=== PATIENT | female | born 1955 | race Caucasian/White ===

== ENCOUNTER 2020-01-16 16:13 | Outpatient (REF) | payer MEDICARE, MEDICAID, SELFPAY | END 2020-01-16 16:14 | disposition home or self-care (01) | LOC: HO.LAB 16:13 | PROVIDERS: Visit Provider Nurse Practitioner Family | DX: Z20.828 Contact with and (suspected) exposure to other viral communicable diseases (principal); R30.0 Dysuria | CPT/HCPCS: 87086; 87088; 87186; U0003 ==

== ENCOUNTER 2020-02-01 13:55 | Outpatient (REF) | payer MEDICARE, MEDICAID, SELFPAY ==
--- NOTE | 2020-02-01 14:17 | XR_ITS ---
EXAMINATION: XR BILATERAL HIPS WITH AP PELVIS CLINICAL INFORMATION: Hip pain COMPARISON: Radiograph 06/30/2013. CT 12/11/2015. TECHNIQUE: AP and frog-leg lateral views of each hip and an AP view of the pelvis. FINDINGS: No fracture or dislocation. The femoral heads are well-seated within their acetabula. The joint spaces are maintained with mild subchondral sclerosis present. The pelvic rim is intact. The sacroiliac joints and pubic symphysis are intact. The bowel gas pattern is unremarkable. XR/XR hips BEATRIZ min 3V IMPRESSION: Mild degenerative changes of the hips.
== END 2020-02-01 13:56 | disposition home or self-care (01) ==
LOC: HO.XRAY 13:55
PROVIDERS: PCP Internal Medicine; Visit Provider Psychiatry & Neurology Neurology
DX: M25.559 Pain in unspecified hip (principal)
CPT/HCPCS: 73522

== ENCOUNTER 2020-02-14 06:52 | Outpatient (REF) | payer MEDICARE, MEDICAID, SELFPAY | END 2020-02-14 06:53 | disposition home or self-care (01) | LOC: HO.LAB 06:52 | PROVIDERS: Visit Provider Internal Medicine | DX: Z20.828 Contact with and (suspected) exposure to other viral communicable diseases (principal) | CPT/HCPCS: C9803; U0003 ==

== ENCOUNTER 2020-03-21 13:01 | Outpatient (REF) | payer MEDICARE, MEDICAID, SELFPAY ==
--- NOTE | 2020-03-21 13:05 | MM_ITS ---
EXAMINATION: MM SCREENING DIGITAL BREAST TOMOSYNTHESIS, BILATERAL CLINICAL INFORMATION: Screening. Asymptomatic. The lifetime risk of breast cancer based on the Tyrer-Cuzick Model is 8%. COMPARISON: Mammography: 02/27/2019, 02/23/2018, 02/13/2017 TECHNIQUE: Digital breast tomosynthesis is performed in both the craniocaudal and mediolateral oblique views along with computer-aided detection (CAD). Synthesized 2D images are generated from the tomosynthesis. FINDINGS: There are scattered areas of fibroglandular density (ACR BI-RADS breast composition Category b). There are no significant masses, abnormal calcifications, or other abnormalities. Parenchymal pattern is similar to prior studies. There is some old scarring left axilla right MLO view similar to prior studies. MM/MM tomosynthesis screening BI IMPRESSION: No mammographic evidence of malignancy. ASSESSMENT: BI-RADS 2: Benign RECOMMENDATION: Routine annual mammography screening. This patient's information was entered into a reminder system with a target due date for their next mammogram.
== END 2020-03-21 13:02 | disposition home or self-care (01) ==
LOC: HO.MAMMO 13:01
PROVIDERS: PCP Internal Medicine; Visit Provider Internal Medicine
DX: Z12.31 Encounter for screening mammogram for malignant neoplasm of breast (principal)
CPT/HCPCS: 77063; 77067; Q3014

== ENCOUNTER → 2020-03-26 19:20 | Outpatient (REF) | payer MEDICARE, MEDICAID, SELFPAY | LOC: HO.SL 19:20 | PROVIDERS: PCP Internal Medicine; Visit Provider Internal Medicine Cardiovascular Disease | DX: Z13.89 Encounter for screening for other disorder (principal) ==

== ENCOUNTER → 2020-04-24 11:07 | Outpatient (REF) | payer MEDICARE, MEDICAID, SELFPAY | LOC: HO.SL 11:07 | PROVIDERS: Visit Provider Internal Medicine Cardiovascular Disease | DX: G47.30 Sleep apnea, unspecified (principal) | CPT/HCPCS: 95806 ==

== ENCOUNTER → 2020-09-27 13:24 | Outpatient (BNVA) | payer MEDICARE, MEDICAID, SELFPAY | PROVIDERS: PCP Internal Medicine; Visit Provider Nurse Practitioner Family | DX: M54.16 Radiculopathy, lumbar region (principal); M53.3 Sacrococcygeal disorders, not elsewhere classified; M79.604 Pain in right leg; M79.605 Pain in left leg; Z79.899 Other long term (current) drug therapy | CPT/HCPCS: 99212 ==

== ENCOUNTER → 2020-10-11 15:24 | Outpatient (BNVA) | payer MEDICARE, MEDICAID, SELFPAY | PROVIDERS: PCP Internal Medicine; Visit Provider Internal Medicine Pulmonary Disease | DX: G47.33 Obstructive sleep apnea (adult) (pediatric) (principal) | CPT/HCPCS: 99202 ==

== ENCOUNTER → 2020-10-31 10:36 | Outpatient (BNVA) | payer MEDICARE, MEDICAID, SELFPAY | PROVIDERS: PCP Internal Medicine; Visit Provider Surgery Vascular Surgery | DX: I73.9 Peripheral vascular disease, unspecified (principal); I10 Essential (primary) hypertension; E78.5 Hyperlipidemia, unspecified | CPT/HCPCS: 99202 ==

== ENCOUNTER 2020-11-21 13:42 | Outpatient (REF) | payer MEDICARE, MEDICAID, SELFPAY | END 2020-11-21 13:43 | disposition home or self-care (01) | LOC: HO.US 13:42 | PROVIDERS: Visit Provider Surgery Vascular Surgery | DX: Z13.89 Encounter for screening for other disorder (principal) ==

== ENCOUNTER 2020-11-26 06:26 | Outpatient (REF) | payer MEDICARE, MEDICAID, SELFPAY ==
--- NOTE | ~2020-11-26 | FL_ITS ---
EXAMINATION: XR FLUOROSCOPY WITH IMAGES CLINICAL INFORMATION: M54.16 - Radiculopathy, lumbar region COMPARISON: Fluoroscopic spot views lumbar spine 04/12/2018 TECHNIQUE: Fluoroscopy performed by Dr. Sergio Child. Fluoroscopy time: 0.2 minutes DAP: 2.60 Gycm2 Images: 1 FINDINGS: There is a spinal needle overlying the outer left L4 neural foramen. There is contrast in the nerve sheath. There is transforaminal epidural extension. No vascular communication demonstrated. There are degenerative changes lumbar spine with vertebral body spurring. FL/FL guidance in treatment room IMPRESSION: Fluoroscopy for pain management procedure.
== END 2020-11-26 06:27 | disposition home or self-care (01) ==
LOC: HO.RADIR 06:26
PROVIDERS: Visit Provider Anesthesiology
DX: M54.16 Radiculopathy, lumbar region (principal); M53.3 Sacrococcygeal disorders, not elsewhere classified
CPT/HCPCS: 64483; J3300; Q9967

== ENCOUNTER 2020-11-28 15:01 | Outpatient (REF) | payer MEDICARE, MEDICAID, SELFPAY ==
--- NOTE | ~2020-11-28 | US_ITS ---
EXAMINATION: US NONINVASIVE ASSESSMENT OF THE ARTERIES OF BOTH LOWER EXTREMITIES CLINICAL INFORMATION: Peripheral vascular disease. COMPARISON: None. TECHNIQUE: Segmental ankle pulse volume recording, pressure measurement at the ankle and ankle brachial indices were obtained of the lower extremity arterial system bilaterally. In addition, bilateral lower extremity duplex ultrasound was performed with velocity measurements and waveform analysis in the common femoral arteries, profunda femoris arteries, proximal mid and distal superficial femoral arteries, popliteal arteries and tibial vessels. This study was performed at rest only. FINDINGS: a) AT REST: 1. The ankle-brachial indices are: Right 1.09 and left 1.07. >0.97-1.25 = normal - no significant arterial disease. 0.75-0.96 = mild peripheral arterial disease. 0.5-0.74 = moderate peripheral arterial disease. <0.50 = severe peripheral arterial disease. 2. Segmental pressure at ankle: Right PT 159, right DP 132, left PT 156, left DP 150. 3. PVR waveform at ankle: Normal bilaterally. 4. Duplex exam. Velocities in cm/sec and phasicity as well as the presence of plaque are reported below. RIGHT LEG: Minimal plaque was present and multiphasic flow seen throughout. Common Femoral: 206 Profunda Femoris: 117 Proximal SFA: 170 Mid SFA: 178 Distal SFA: 153 Popliteal: 102 Tibial: 128 LEFT LEG: Minimal plaque was present and multiphasic flow seen throughout Common Femoral: 171 Profunda Femoris: 83 Proximal SFA: 160 Mid SFA: 122 Distal SFA: 120 Popliteal: 72 Tibial: 98 US/US arterial duplex LE BI IMPRESSION: Normal ABIs with multiphasic flow throughout. No evidence of hemodynamically significant peripheral vascular disease.
== END 2020-11-28 15:02 | disposition home or self-care (01) ==
LOC: HO.US 15:01
PROVIDERS: Visit Provider Surgery Vascular Surgery
DX: I70.213 Atherosclerosis of native arteries of extremities with intermittent claudication, bilateral legs (principal)
CPT/HCPCS: 93925

== ENCOUNTER → 2020-12-04 10:36 | Outpatient (BNVA) | payer MEDICARE, MEDICAID, SELFPAY | PROVIDERS: PCP Internal Medicine; Visit Provider Anesthesiology | DX: M54.16 Radiculopathy, lumbar region (principal); M53.3 Sacrococcygeal disorders, not elsewhere classified; M79.604 Pain in right leg; M79.605 Pain in left leg | CPT/HCPCS: Q3014 ==

== ENCOUNTER → 2020-12-05 09:36 | Outpatient (BNVA) | payer MEDICARE, MEDICAID, SELFPAY | PROVIDERS: PCP Internal Medicine; Visit Provider Surgery Vascular Surgery | DX: M19.041 Primary osteoarthritis, right hand (principal); M19.042 Primary osteoarthritis, left hand; M54.16 Radiculopathy, lumbar region; I73.9 Peripheral vascular disease, unspecified | CPT/HCPCS: 99212 ==

== ENCOUNTER → 2020-12-20 15:22 | Outpatient (BNVA) | payer MEDICARE, MEDICAID, SELFPAY | PROVIDERS: PCP Internal Medicine; Visit Provider Internal Medicine Pulmonary Disease | DX: G47.33 Obstructive sleep apnea (adult) (pediatric) (principal) | CPT/HCPCS: 99212 ==

== ENCOUNTER → 2021-01-01 13:18 | Outpatient (BNVA) | payer MEDICARE, SELFPAY | PROVIDERS: PCP Internal Medicine; Visit Provider Anesthesiology | DX: M54.16 Radiculopathy, lumbar region (principal); M53.3 Sacrococcygeal disorders, not elsewhere classified; M79.604 Pain in right leg; M79.605 Pain in left leg | CPT/HCPCS: 99212 ==

== ENCOUNTER 2021-01-14 13:19 | Outpatient (REF) | payer MEDICARE, SELFPAY ==
--- NOTE | ~2021-01-14 | MR_ITS ---
EXAMINATION: MR LUMBAR SPINE WITHOUT CONTRAST CLINICAL INFORMATION: Radiculopathy, lumbar region. COMPARISON: 09/16/2016 MRI TECHNIQUE: MRI of the lumbar spine was obtained using routine sequences without contrast. FINDINGS: Coronal Alignment: Mild mid lumbar levocurvature, stable in appearance. Sagittal Alignment: There is trace grade 1 degenerative spondylolisthesis at L5-S1, stable in appearance. There is 2 mm of retrolisthesis at L2-L3, stable in appearance. Lordotic curvature is maintained. Lumbosacral Junction: Normal. Vertebral Bodies: Normal height. Disc Spaces and Endplates: Moderate disc space height loss, slightly progressed from previous exam at L5-S1 with disc desiccation and Schmorl's nodes, similar in appearance, with some progression of anterolateral spondylosis. Mild disc space height loss at L2-L3, slightly progressed. Multilevel disc desiccation throughout the thoracolumbar spine, similar to the previous exam. Spinal Canal: No abnormal developmental findings. Bone Marrow: Mild type II and minimal type I marrow signal changes along the endplates at L5-S1 with improvement and type I marrow signal changes at this level since the previous exam. Conus Medullaris: Terminates at L1-L2. Morphology and signal is normal. Intradural Nerve Roots: Within normal limits. L5-S1: Concentric disc bulging and a tiny central annular fissure again noted, with progression of lateral foraminal components of disc bulging since previous exam bilaterally. Moderate left-sided and [id number]-[id number] right-sided facet arthropathy, similar to previous study. No significant spinal canal stenosis. There is severe left-sided and lebq-sk-ulpefepd right-sided neural foraminal stenosis, progressed from previous exam, with left L5 nerve root impingement. There is also right L5 nerve root impingement to a lesser degree which is also a new finding. L4-L5: Disc bulging is again noted, with a right-sided extraforaminal/foraminal disc protrusion also again noted, slightly more prominent on current study which abuts the exiting right L4 nerve root without nerve root compression or displacement. There is severe right-sided and moderate left-sided facet arthropathy with ligamentum flavum thickening, similar to the previous exam without significant spinal canal stenosis. Hwlv-xd-ijytvyvp bilateral neural foraminal narrowing has progressed. L3-L4: Minor annular bulging noted, slightly more apparent on current study with mild flattening of the dural sac and moderate bilateral facet arthrosis with ligamentum flavum thickening, similar to the previous exam without significant spinal canal or neural foraminal stenosis. L2-L3: Mild disc bulging and mild retrolisthesis with mild flattening of the dural sac is stable with mild facet arthropathy without significant canal or neural foraminal stenosis. L1-L2: No disc bulge or herniation and no significant facet arthrosis, canal or neural foraminal stenosis. Paraspinal/Retroperitoneal: The paravertebral soft tissues are unremarkable. MR/MR lumbar spine wo con IMPRESSION: 1. Trace grade 1 degenerative spondylolisthesis at L5-S1 and mild retrolisthesis at L2-L3, largely similar to the previous exam with multilevel DDD and spondylosis, with progression of disc degenerative change at L5-S1 with progression of disc bulging at L5-S1. Disc bulging also noted at the remaining levels slightly more prominent at L3-L4 with a slightly more prominent right foraminal disc herniation at L4-L5. 2. Multilevel bilateral facet arthropathy, similar to the previous exam. 3. No significant central spinal canal stenosis or lateral recess stenosis. There is multilevel bilateral neural foraminal stenosis, most apparent on the left at L5-S1 with bilateral L5 nerve root impingement, left more than right, progressed from previous study.
== END 2021-01-14 13:20 | disposition home or self-care (01) ==
LOC: HO.MRI 13:19
PROVIDERS: Visit Provider Anesthesiology
DX: M54.16 Radiculopathy, lumbar region (principal)
CPT/HCPCS: 72148

== ENCOUNTER 2021-03-19 17:13 | Outpatient (REF) | payer MEDICARE, SELFPAY ==
[2021-03-19 18:02] LABS: Influenza A PCR NEGATIVE (Negative); Influenza B PCR NEGATIVE (Negative); Resp Syncy Virus RNA Qual PCR NEGATIVE (Negative); SARS COV2 PCR INHOUSE POSITIVE (Negative)
== END 2021-03-19 17:14 | disposition home or self-care (01) ==
LOC: HO.LNP 17:13
PROVIDERS: Visit Provider Physician Assistant
DX: Z20.822 Contact with and (suspected) exposure to COVID-19 (principal); R05.8 Other specified cough
CPT/HCPCS: 0241U

== ENCOUNTER 2021-04-10 09:42 | Outpatient (REF) | payer MEDICARE, SELFPAY | END 2021-04-10 09:43 | disposition home or self-care (01) | LOC: HO.LAB 09:42 | PROVIDERS: PCP Internal Medicine | DX: N39.0 Urinary tract infection, site not specified (principal) | CPT/HCPCS: 51798; 87086; 87088; 87186; 99212 ==

== ENCOUNTER 2021-04-18 12:56 | Outpatient (REF) | payer MEDICARE, SELFPAY ==
--- NOTE | ~2021-04-18 | MM_ITS ---
EXAMINATION: MM SCREENING DIGITAL BREAST TOMOSYNTHESIS, BILATERAL CLINICAL INFORMATION: Screening. Asymptomatic. The lifetime risk of breast cancer based on the Tyrer-Cuzick Model is 5%. COMPARISON: Mammography: 03/21/2020, 02/27/2019, 02/23/2018 TECHNIQUE: Digital breast tomosynthesis is performed in both the craniocaudal and mediolateral oblique views along with computer-aided detection (CAD). Synthesized 2D images are generated from the tomosynthesis. FINDINGS: There are scattered areas of fibroglandular density (ACR BI-RADS breast composition Category b). There are no significant masses, abnormal calcifications, or other abnormalities. Parenchymal pattern is similar to prior studies. There is no developing density or architectural abnormality. The axilla and skin contours are unremarkable. No significant changes. MM/MM tomosynthesis screening BI IMPRESSION: No mammographic evidence of malignancy. ASSESSMENT: BI-RADS 1: Negative RECOMMENDATION: Routine annual mammography screening. This patient's information was entered into a reminder system with a target due date for their next mammogram.
== END 2021-04-18 12:57 | disposition home or self-care (01) ==
LOC: HO.MAMMO 12:56
PROVIDERS: PCP Internal Medicine; Visit Provider Internal Medicine
DX: Z12.31 Encounter for screening mammogram for malignant neoplasm of breast (principal)
CPT/HCPCS: 77063; 77067

== ENCOUNTER → 2021-04-23 12:59 | Outpatient (BNVA) | payer MEDICARE, SELFPAY | PROVIDERS: PCP Internal Medicine; Visit Provider Anesthesiology | DX: M47.816 Spondylosis without myelopathy or radiculopathy, lumbar region (principal); M51.36 Other intervertebral disc degeneration, lumbar region | CPT/HCPCS: 99212 ==

== ENCOUNTER → 2021-04-29 12:34 | Outpatient (BNVA) | payer MEDICARE, SELFPAY | PROVIDERS: PCP Internal Medicine; Visit Provider Obstetrics & Gynecology | DX: Z13.89 Encounter for screening for other disorder (principal) ==

== ENCOUNTER 2021-05-07 08:41 | Outpatient (REF) | payer MEDICARE, SELFPAY ==
--- NOTE | ~2021-05-07 | US_ITS ---
EXAMINATION: US ABDOMEN COMPLETE CLINICAL INFORMATION: Epigastric pain. COMPARISON: CT abdomen pelvis 12/07/2013. TECHNIQUE: Real-time imaging of the abdominal viscera. FINDINGS: PANCREAS: Normal. ABDOMINAL AORTA: The proximal, mid, and distal segments are normal in caliber. INFERIOR VENA CAVA: Visualized portions are normal. LIVER: Liver echotexture is slightly increased. The liver is normal in size. The liver contour is normal. No focal hepatic lesion. There is no intrahepatic biliary duct dilatation seen. GALLBLADDER: Not well visualized. No gallstones are seen. COMMON BILE DUCT: Normal in caliber measuring 0.5 cm in diameter. RIGHT KIDNEY: There is a 1 cm cyst in the upper pole. No hydronephrosis or renal calculi. The kidney measures 10.3 cm in maximum dimension. LEFT KIDNEY: There is a 1 x 0.6 cm cyst in the upper pole. No hydronephrosis or renal calculi. The kidney measures 11.5 cm in maximum dimension. SPLEEN: Normal. The spleen measures 11.6 cm in maximum dimension. FREE FLUID: None. US/US abdomen complete IMPRESSION: Slightly echogenic liver probably representing fatty infiltration. Limited visualization of the gallbladder. No gallstone seen. Small bilateral renal cysts.
== END 2021-05-07 08:42 | disposition home or self-care (01) ==
LOC: HO.US 08:41
PROVIDERS: PCP Internal Medicine; Visit Provider Internal Medicine Gastroenterology
DX: R10.13 Epigastric pain (principal)
CPT/HCPCS: 76700

== ENCOUNTER 2021-05-13 06:05 | Outpatient (REF) | payer MEDICARE, SELFPAY ==
--- NOTE | ~2021-05-13 | FL_ITS ---
EXAMINATION: XR FLUOROSCOPY WITH IMAGES CLINICAL INFORMATION: M47.816 - Spondylosis without myelopathy or radiculopathy COMPARISON: MR lumbar spine 01/14/2021 TECHNIQUE: Fluoroscopy performed by Dr. Sergio Child. Fluoroscopy time: 0.4 minutes DAP: 3.28 Gycm2 Images: 4 FINDINGS: There are spinal needles overlying the outer left L3, L4, and L5 neural foramen. There is contrast seen in the respective nerve sheaths. Some early transforaminal epidural extension is suggested. No visible vascular communication. FL/FL guidance in treatment room IMPRESSION: Fluoroscopy for pain management procedures.
== END 2021-05-13 06:06 | disposition home or self-care (01) ==
LOC: HO.RADIR 06:05
PROVIDERS: Visit Provider Anesthesiology
DX: M47.816 Spondylosis without myelopathy or radiculopathy, lumbar region (principal); M51.36 Other intervertebral disc degeneration, lumbar region
CPT/HCPCS: 64493; 64494; 64495; Q9967

== ENCOUNTER 2021-05-20 13:28 | Outpatient (REF) | payer MEDICARE, SELFPAY ==
--- NOTE | ~2021-05-20 | MM_ITS ---
EXAMINATION: BONE DENSITOMETRY CLINICAL INDICATION: Menopause. COMPARISON: Previous BD dated 07/02/2017 and baseline BD dated 06/03/2012. TECHNIQUE: Using a [employer] DXA System (software version: 13.1) manufactured by [employer], dual-energy x-ray absorptiometry was performed of the lumbar spine and left hip. The images are of good technical quality. Summary results are attached. FINDINGS: AP SPINE L1-L2 (excluding L3 and L4): The data of L1-L4 has been changed to exclude the L3 and L4 vertebral bodies, because degenerative changes at these levels may cause overestimation of lumbar spine density. Current: BMD 1.000 g/cm2, Z-score 0.1, T-score -1.4, osteopenia, 7.7% decrease from previous, 4.9% decrease from baseline (<5% change is not significant). Prior: BMD 1.083 g/cm2. Baseline: BMD 1.052 g/cm2. LEFT FEMUR, NECK: Current: BMD 0.840 g/cm2, Z-score 0.0, T-score -1.4, osteopenia. Prior: BMD 0.831 g/cm2. Baseline: BMD 0.842 g/cm2. LEFT FEMUR, TOTAL: Current: BMD 0.879 g/cm2, Z-score 0.1, T-score -1.0, normal, 1.9% decrease from previous, 5.3% decrease from baseline (<5% change is not significant). Prior: BMD 0.896 g/cm2. Baseline: BMD 0.928 g/cm2. IDENTIFIED RISK FACTORS: Early menopause, hysterectomy, secondary osteoporosis. HISTORY OF FRACTURE: None listed. MEDICATIONS: Calcium, vitamin D. MM/XR DEXA axial skeleton IMPRESSION: 1. DIAGNOSIS: Osteopenia based on the lowest T-score value of -1.4 in the lumbar spine and femur neck applying World Health Organization criteria. 2. 10-YEAR FRACTURE RISK PREDICTION, FRAX: Major osteoporotic fracture (clinical spine, forearm, hip or shoulder) 5.2%. Hip fracture 0.6%. 3. Treatment Recommendations: NOF guidelines recommend consideration for treatment in postmenopausal women and men age 50 and older presenting with the following: -A hip or vertebral (clinical or morphometric) fracture. -T-score less than or equal to -2.5 at the femoral neck or spine after appropriate evaluation to exclude secondary causes. -Low bone mass at the hip or spine and a 10-year fracture probability by FRAX of greater than or equal to 3% for hip fracture or greater than or equal to 20% for major osteoporotic fracture based on the [place] adapted WHO algorithm. 4. Other Recommendations: All treatment decisions require clinical judgment and consideration of individual patient factors, including patient preferences, comorbidities, previous drug use, risk factors not captured in the FRAX model (e.g. frailty, falls, vitamin D deficiency, increased bone turnover, interval significant decline in bone density) and possible under or overestimation of fracture risk by FRAX. Additional medical evaluation for secondary cause of low bone mineral density may be appropriate. FUTURE SCAN RECOMMENDATION: People with diagnosed cases of osteoporosis or at high risk for fracture should have regular bone mineral density tests. For patients eligible for Medicare, routine testing is allowed once every 2 years. The testing frequency can be increased to one year for patients who have rapidly progressing disease, those who are receiving or discontinuing medical therapy to restore bone mass, or have additional risk factors.
== END 2021-05-20 13:29 | disposition home or self-care (01) ==
LOC: HO.MAMMO 13:28
PROVIDERS: PCP Internal Medicine; Visit Provider Obstetrics & Gynecology
DX: Z13.820 Encounter for screening for osteoporosis (principal); Z78.0 Asymptomatic menopausal state; M85.80 Other specified disorders of bone density and structure, unspecified site; Z79.899 Other long term (current) drug therapy; Z90.710 Acquired absence of both cervix and uterus
CPT/HCPCS: 77080

== ENCOUNTER 2021-05-21 12:43 | Outpatient (REF) | payer MEDICARE, SELFPAY ==
[2021-05-21 13:49] LABS: Alanine Aminotransferase 18 U/L (0-31); Albumin Level 4.2 g/dL (3.5-5.0); Alkaline Phosphatase 57 U/L (39-117); Anion Gap 10 (12-20); Aspartate Amino Transferase 21 U/L (5-31); Bilirubin Total 0.5 mg/dL (0.0-1.0); Blood Urea Nitrogen 9 mg/dL (9-16); Calcium 9.7 mg/dL (8.4-10.2); Carbon Dioxide 30 mmol/L (22-29); Chloride 108 mmol/L (96-108); Cholesterol 170 mg/dL; Estimated Glomerular Filt Rate > 60; Glucose Random 94 mg/dL (60-115); HDL Cholesterol 57 mg/dL; LDL Cholesterol Calculated 88 mg/dl; Potassium 4.9 mmol/L (3.3-5.1); Sodium 143 mmol/L (135-145); Total Protein 7.2 g/dL (6.5-8.0); Triglycerides 126 mg/dL
[2021-05-21 13:57] LABS: Vitamin D 25-OH Total 37.5 ng/mL (>30)
== END 2021-05-21 12:44 | disposition home or self-care (01) ==
LOC: HO.LAB 12:43
PROVIDERS: Absent Provider Internal Medicine; PCP Internal Medicine; Visit Provider Nurse Practitioner Family
DX: Z00.01 Encounter for general adult medical examination with abnormal findings (principal); N95.1 Menopausal and female climacteric states; M19.041 Primary osteoarthritis, right hand; M19.042 Primary osteoarthritis, left hand
CPT/HCPCS: 36415; 80053; 80061; 82306

== ENCOUNTER → 2021-05-27 15:11 | Outpatient (BNVA) | payer OTHER, SELFPAY | PROVIDERS: Visit Provider Obstetrics & Gynecology | DX: Z13.89 Encounter for screening for other disorder (principal) ==

== ENCOUNTER 2021-06-03 06:18 | Outpatient (REF) | payer OTHER, SELFPAY ==
--- NOTE | ~2021-06-03 | FL_ITS ---
EXAMINATION: XR FLUOROSCOPY WITH IMAGES CLINICAL INFORMATION: Radiculopathy lumbar region. COMPARISON: Previous exam May 2021 TECHNIQUE: Fluoroscopy performed by Dr. Child. Fluoroscopy time: 0.4 minutes DAP: 1.5 Gy-cm2 Images: 2 FINDINGS: Images demonstrate needle placement and contrast injection adjacent to the left L3-L4 and L4-L5 vertebral bodies. FL/FL guidance in treatment room IMPRESSION: Fluoroscopy guidance for pain management procedure.
== END 2021-06-03 06:19 | disposition home or self-care (01) ==
LOC: HO.RADIR 06:18
PROVIDERS: Visit Provider Anesthesiology
DX: M54.16 Radiculopathy, lumbar region (principal); M47.816 Spondylosis without myelopathy or radiculopathy, lumbar region; M51.36 Other intervertebral disc degeneration, lumbar region
CPT/HCPCS: 64483; 64484; J3300; Q9967

== ENCOUNTER → 2021-07-02 12:57 | Outpatient (BNVA) | payer OTHER, SELFPAY | PROVIDERS: PCP Internal Medicine; Visit Provider Anesthesiology | DX: Z13.89 Encounter for screening for other disorder (principal) ==

== ENCOUNTER → 2021-07-15 10:28 | Outpatient (RCR) | payer MEDICARE, MEDICAID, SELFPAY | END | disposition home or self-care (01) | LOC: HO.OT 12-21 14:52 | PROVIDERS: Visit Provider Student in an Organized Health Care Education/Training Program | DX: M19.041 Primary osteoarthritis, right hand (principal); M19.042 Primary osteoarthritis, left hand | CPT/HCPCS: 97033; 97035; 97110; 97140; 97760 ==

== ENCOUNTER 2021-12-05 13:39 | Outpatient (REF) | payer OTHER, SELFPAY ==
--- NOTE | ~2021-12-05 | XR_ITS ---
EXAMINATION: XR ELBOW, LEFT CLINICAL INFORMATION: Left elbow pain. COMPARISON: None TECHNIQUE: AP, lateral, and oblique views of the left elbow. FINDINGS: Small marginal osteophytes are evident at the elbow. A small enthesophyte spur is present at the olecranon. Mild soft tissue swelling at the dorsal aspect of the olecranon. No joint effusion. Joint spaces are well preserved. Mild medial soft tissue swelling at the elbow. XR/XR elbow LT 2V IMPRESSION: No acute osseous abnormalities at the elbow. Small degenerative osteophytes. Joint spaces are well preserved. Enthesopathic spur at the triceps insertion.
--- NOTE | ~2021-12-05 | XR_ITS ---
EXAMINATION: XR KNEE, RIGHT XR KNEE, LEFT CLINICAL INFORMATION: Pain in the knees. COMPARISON: None TECHNIQUE: Three views of each knee. FINDINGS: RIGHT KNEE: Bones are osteopenic. No fracture or malalignment. Small marginal osteophytes are present at the patellofemoral compartment. Joint spaces appear well preserved. No joint effusion. Enthesopathic spurs are present at the quadriceps tendon insertion, patellar tendon origin, and patellar tendon insertion. LEFT KNEE: Bones are osteopenic. Joint spaces appear well preserved. Small enthesopathic spurs at the patella and tibial tuberosity. No joint effusion. No fracture or malalignment. Mild soft tissue swelling. XR/XR knee LT 3V IMPRESSION: Mild patellofemoral compartment osteoarthritis in the right knee. No acute osseous abnormalities in the knees. Multifocal enthesopathic spurs at the patellar and quadriceps tendons.
--- NOTE | ~2021-12-05 | XR_ITS ---
EXAMINATION: XR KNEE, RIGHT XR KNEE, LEFT CLINICAL INFORMATION: Pain in the knees. COMPARISON: None TECHNIQUE: Three views of each knee. FINDINGS: RIGHT KNEE: Bones are osteopenic. No fracture or malalignment. Small marginal osteophytes are present at the patellofemoral compartment. Joint spaces appear well preserved. No joint effusion. Enthesopathic spurs are present at the quadriceps tendon insertion, patellar tendon origin, and patellar tendon insertion. LEFT KNEE: Bones are osteopenic. Joint spaces appear well preserved. Small enthesopathic spurs at the patella and tibial tuberosity. No joint effusion. No fracture or malalignment. Mild soft tissue swelling. XR/XR knee RT 3V IMPRESSION: Mild patellofemoral compartment osteoarthritis in the right knee. No acute osseous abnormalities in the knees. Multifocal enthesopathic spurs at the patellar and quadriceps tendons.
[2021-12-05 15:00] LABS: Alanine Aminotransferase 27 U/L (0-31); Aspartate Amino Transferase 24 U/L (5-31); Estimated Glomerular Filt Rate > 60
== END 2021-12-05 13:40 | disposition home or self-care (01) ==
LOC: HO.XRAY 13:39
PROVIDERS: PCP Internal Medicine; Visit Provider Nurse Practitioner Family
DX: M25.522 Pain in left elbow (principal); M25.561 Pain in right knee; M25.562 Pain in left knee
CPT/HCPCS: 36415; 73070; 73562; 82565; 84450; 84460

== ENCOUNTER 2022-03-30 23:42 | Emergency (ER) | payer OTHER, SELFPAY ==
--- NOTE | ~2022-03-30 | CT_ITS ---
EXAMINATION: CT ABDOMEN AND PELVIS WITH CONTRAST CLINICAL INFORMATION: Epigastric pain. Nausea and vomiting. COMPARISON: 12/07/2013 TECHNIQUE: Multidetector volumetric images were obtained from the superior aspect of the liver through the pubic symphysis following administration 85 mL of Omnipaque 350 intravenous contrast. Sagittal and coronal reformatted images were obtained on the technologist's workstation. Oral contrast: No This CT examination was performed using dose optimization techniques as appropriate, variously including the following: *Automated exposure control *Adjustment of mA and/or kV according to patient size (this includes techniques or standardized protocols for targeted exams where dose is matched to indication/reason for exam; i.e. extremities or head) *Use of iterative reconstruction technique DLP: 531 mGy-cm FINDINGS: LUNG BASES: The visualized lung bases are unremarkable. LIVER, GALLBLADDER, AND BILIARY TREE: The liver is normal in size, shape, and attenuation. No focal hepatic lesion or biliary ductal dilatation is present. The gallbladder is unremarkable with no evidence of radiopaque gallstones, gallbladder wall thickening, or obvious pericholecystic inflammatory changes. PANCREAS: Unremarkable. SPLEEN: Unremarkable. ADRENAL GLANDS: Unremarkable. KIDNEYS AND URETERS: The kidneys are normal in size, shape, and attenuation. No hydronephrosis, hydroureter, or calculi seen. No perinephric stranding. 0.6 cm hypoattenuating lesion at the midpole of the left kidney is too small to fully characterize. BLADDER: Unremarkable. GASTROINTESTINAL TRACT: The stomach is unremarkable. Normal caliber small bowel. No obstruction. Normal appendix. No colonic wall thickening or inflammation. Moderate diffuse colonic stool burden. Diverticulosis at the sigmoid colon. No diverticulitis. No free air or free fluid. ABDOMINAL WALL: No significant hernia is appreciated. LYMPH NODES: Normal. VASCULAR: Normal caliber aorta with moderate atherosclerotic calcification. PELVIC VISCERA: Uterus not seen. No adnexal mass. OSSEOUS STRUCTURES: No acute or suspicious osseous abnormality. Mild degenerative change throughout the spine. Mild degenerative changes of the hips. CT/CT abdomen pelvis w IV con IMPRESSION: No acute findings in the abdomen or pelvis. No inflammatory changes. Moderate colonic stool burden. Fleischner guidelines were followed.
--- NOTE | ~2022-03-30 | XR_ITS ---
EXAMINATION: XR CHEST CLINICAL INFORMATION: Chest pain. COMPARISON: 12/31/2017 TECHNIQUE: Frontal view of the chest was obtained. FINDINGS: Cardiac leads overlie the chest. The lungs are well expanded. There is no focal consolidation, edema, or effusion. No pneumothorax. The cardiomediastinal silhouette is within normal limits. No acute osseous abnormality. XR/XR chest 1V IMPRESSION: No acute pulmonary disease.
[2022-03-30 23:44] VITALS: BP 186/97; PULSE 111; RESP 18; TEMP 36.4; O2SAT 100; BMI 25.2
--- NOTE | 2022-03-30 23:48 | ECG_ITS ---
Test Reason : cp Blood Pressure : / mmHG Vent. Rate : 112 BPM Atrial Rate : 112 BPM P-R Int : 148 ms QRS Dur : 082 ms QT Int : 346 ms P-R-T Axes : 048 015 050 degrees QTc Int : 472 ms Sinus tachycardia Possible Left atrial enlargement Nonspecific ST abnormality Abnormal ECG When compared with ECG of 31-DEC-2017 19:53, Vent. rate has increased BY 38 BPM Referred By: Generic ED Physician Electronically Signed By:GEMMA SALINAS MD
[2022-03-31] VITALS (7 sets, daily range): BP systolic 130–162; BP diastolic 60–76; PULSE 70–107; RESP 12–18; TEMP 36.2; O2SAT 97–99; BMI 25.7
--- NOTE | 2022-03-31 00:06 | ED.CHESTPAIN ---
HPI - Chest Pain General Chief Complaint: Chest Pain <Elizabeth IgnacioHATTIE - Last Filed: 03/31/22 02:07> Stated Complaint: chest pain, vomiting <Elizabeth IgnacioHATTIE - Last Filed: 03/31/22 02:07> Time Seen by Provider: 03/30/22 23:58 <Elizabeth IgnacioHATTIE - Last Filed: 03/31/22 02:07> Source: patient <Elizabeth Ignacio HATTIE - Last Filed: 03/31/22 02:07> Mode of arrival: ambulatory <Elizabeth IgnacioHATTIE - Last Filed: 03/31/22 02:07> Limitations: no limitations <Elizabeth Ignacio HATTIE - Last Filed: 03/31/22 02:07> History of Present Illness HPI narrative: Patient is a 67-year-old female who presents to emergency department for evaluation. She reports 1 hour prior to arrival she began feeling unwell . Was having nausea, epigastric pain radiating into chest, and palpitations. She was having intermittent dizziness. Otherwise she reported feeling well earlier today, did not eat out or have any abnormal food. She went for a walk soon after symptom onset, did not exacerbate symptoms, and denied any shortness of breath during exertion. Currently she denies chest pain, shortness of breath, difficulty breathing, back pain. Denies recent fever, chills, constipation, diarrhea, dysuria, urinary frequency, headaches, vision changes, neck pain, neck stiffness. She does report a history of GERD, with persistent heartburn but states that her symptoms feel different. Three weeks ago she stopped taking omeprazole, as her primary care provider advised her to discontinue it, and she was given a prescription for a new medication to use only as needed. She has not yet began this medication, And does not recall the name. <Elizabeth IgnacioHATTIE - Last Filed: 03/31/22 02:07> Related Data Home Medications: Home Medications Medication Instructions Recorded Confirmed aspirin 81 mg tablet,delayed 81 mg PO DAILY 02/02/20 05/19/21 release escitalopram oxalate 10 mg tablet 10 mg PO DAILY 02/02/20 05/19/21 gabapentin 600 mg tablet 600 mg PO TID 02/02/20 05/19/21 loratadine 10 mg tablet 10 mg PO DAILY 02/02/20 05/19/21 lorazepam 0.5 mg tablet [id number]? mg PO DAILY PRN 02/02/20 05/19/21 bupropion HCl 150 mg 24 hr tablet, 75 mg PO QAM 07/08/20 05/19/21 extended release amitriptyline 10 mg tablet 10 mg PO BEDTIME 03/04/21 05/19/21 fluticasone propionate 50 spray intranasal 03/04/21 05/19/21 mcg/actuation nasal spray,suspension tohovfre-akldvep-zeyp-lutein tablet tab PO 03/04/21 05/19/21 zolpidem 5 mg tablet mg PO 03/04/21 05/19/21 prednisolone acetate 1 % eye 0 drp ophthalmic (eye) 04/10/21 05/19/21 drops,suspension ketoconazole 2 % shampoo topical 05/19/21 05/19/21 triamcinolone acetonide 0.1 % topical BID PRN 05/19/21 05/19/21 topical ointment Previous Rx's Medication Instructions Recorded tizanidine 2 mg tablet 2 mg PO TID PRN muscle spasticity 12/09/20 30 days #90 tabs mupirocin 2 % topical ointment 1 appl topical TID 5 days #22 grams 02/22/21 hydroxyzine HCl 10 mg tablet 10 mg PO TID PRN for itch #30 tabs 03/20/21 meloxicam 15 mg tablet 15 mg PO DAILY #14 tabs 10/24/21 diclofenac sodium 1 % topical gel 2 g topical BID PRN pain #100 grams 12/19/21 tamsulosin 0.4 mg capsule 0.4 mg PO BEDTIME #30 caps 03/25/22 amoxicillin 500 mg capsule 500 mg PO Q12H #14 caps 03/27/22 famotidine 40 mg tablet 40 mg PO DAILY PRN heartburn #30 03/27/22 tabs <Elizabeth Ignacio CNP - Last Filed: 03/31/22 02:07> Allergies/Adverse Reactions: Allergies Allergy/AdvReac Type Severity Reaction Status Date / Time No Known Allergies Allergy Verified 03/27/22 12:11 <Elizabeth Ignacio CNP - Last Filed: 03/31/22 02:07> Review of Systems Review of Systems: Constitutional : No Weight loss, No Fever, No Chills ENT/Mouth :? No sore throat, No Rhinorrhea Eyes: No Swelling, No Redness Cardiovascular : No Chest Pain, No SOB, No Edema Respiratory : No Cough, No Sputum, No Wheezing Gastrointestinal : Positive Nausea, no Vomiting, no Diarrhea, positive abdominal pain, No Hematochezia, No Melena Genitourinary : No Dysuria, No Urinary Frequency, No Hematuria, No Urgency? Musculoskeletal : No joint pain, No Myalgias, No Joint Swelling Skin : No Skin Lesions, No rash Neuro : No Weakness, No Numbness, No Dizziness, No Headache Psych : No Anxiety/Panic, No Depression Heme/Lymph: No Bruising, No Lymphadenopathy Endocrine : No Polyuria, No Polydipsia <Elizabeth Ignacio CNP - Last Filed: 03/31/22 02:07> Yes all other systems are reviewed and are negative <Elizabeth Ignacio CNP - Last Filed: 03/31/22 02:07> [facility] Past Medical History Attestation statement: The following information was validated with the patient. <Elizabeth Ignacio CNP - Last Filed: 03/31/22 02:07> Source: old records reviewed <Elizabeth Ignacio CNP - Last Filed: 03/31/22 02:07> Medical History: Medical History Anxiety Disc degeneration, lumbar Dyslipidemia Essential hypertension GERD (gastroesophageal reflux disease) Hip pain, left History of cervical cancer Irritable bowel syndrome with constipation Osteopenia Spondylosis of lumbar joint Surgical menopause Weak urinary stream <Elizabeth Ignacio CNP - Last Filed: 03/31/22 02:07> Surgical History: Surgical History History of partial hysterectomy <Elizabeth Ignacio CNP - Last Filed: 03/31/22 02:07> Family History Family History: Family History Father Throat cancer Mother No problems noted. Brother No problems noted. Sister No problems noted. Sister No problems noted. Sister No problems noted. Sister Hyperlipidemia HTN (hypertension) Depression Myocardial infarction Daughter No problems noted. Daughter No problems noted. Daughter No problems noted. Daughter No problems noted. Other Mental health disorder Substance use disorder <Elizabeth Ignacio CNP - Last Filed: 03/31/22 02:07> Social History Social History: Social History Housing: Apartment Alcohol intake: current Alcohol intake frequency: former alcohol drinker Alcohol type: wine Patient Tobacco Use Status: Former Tobacco user Quit Date: 12 years ago e-Cigarette/Vaping Use: Never Used Advance Directives: Yes Advance Directives on File: Yes Advance Directives Date on File: 12/21/19 service: No Current occupational status: unemployed Cognitive needs: No Hearing needs: No Vision needs: No <Elizabeth Ignacio CNP - Last Filed: 03/31/22 02:07> Physical Exam Vital Signs: Vital Signs: Last Vital Signs Temp 97.5 F 03/30/22 23:44 Pulse 92 03/31/22 02:25 Resp 18 03/31/22 01:23 BP 130/60 03/31/22 02:25 Pulse Ox 98 03/31/22 01:23 O2 Del Method 03/31/22 01:23 BMI result Body Mass Index 25.2 <Elizabeth Ignacio CNP - Last Filed: 03/31/22 02:07> Vital Signs: Last Vital Signs Temp 97.5 F 03/30/22 23:44 Pulse 92 03/31/22 02:25 Resp 18 03/31/22 01:23 BP 130/60 03/31/22 02:25 Pulse Ox 98 03/31/22 01:23 O2 Del Method 03/31/22 01:23 BMI result Body Mass Index 25.2 <Federica Larios MD - Last Filed: 03/31/22 05:44> Appearance: Alert.?Oriented to person, place and time. No acute distress.?Normal affect. Eyes: Pupils equal, round and reactive to light.? ENT: Pharynx normal.?? Neck: Normal inspection.? Neck supple.?? CVS: Heart sounds normal. Normal heart rate and rhythm.? Pulses normal.?? Respiratory: No respiratory distress.? Lung sounds clear to auscultation bilaterally?? Abdomen: Soft with epigastric tenderness upon palpation. Negative Perez sign. Negative obturator's sign, psoas sign, Rovsing sign. No rebound tenderness. No rigidity. No guarding.. Normoactive bowel sounds. No pulsatile mass.?? Skin: Skin warm and dry.? Normal skin color.? Extremities: No lower extremity edema.? Neuro: Moves all extremities spontaneously. Sensation intact bilaterally.No focal neuro deficits. Ambulates with normal steady gait. <Elizabeth Ignacio CNP - Last Filed: 03/31/22 02:07> Course Course Course Narrative: Patient's troponin increased from 5.7 to 38.5. Patient remains asymptomatic. -at 07:00, we will repeat another troponin and EKG. -then we will determine if the patient needs admission or can be discharged. -sign-out given to Dr. Segovia <Federica Larios MD - Last Filed: 03/31/22 05:44> Reevaluation(s) Reevaluation #1: CBC without leukocytosis or anemia. CMP is unremarkable, lipase within normal limits. Troponin 5.7, EKG revealing sinus tachycardia, nonspecific ST abnormality, depression V3-V5 no >1mm, Will obtain delta troponin at 0300 to exclude ACS. D-dimer <150, not consistent with PE. urinalysis without evidence of infection. <Elizabeth Ignacio CNP - Last Filed: 03/31/22 02:07> Time: 00:57 <Elizabeth Ignacio CNP - Last Filed: 03/31/22 02:07> Reevaluation #2: CT of the abdomen and pelvis reveals no acute intra-abdominal pathology, there is however moderate colonic stool burden. Received medications 45 minutes ago, reports mild improvement in nausea and epigastric pain at this time. patient signed out to Lizbeth Larios MD pending delta troponin, if normal, suspect symptoms most likely secondary to gastritis. Will be stable for discharge, discussed with patient taking for mood edema daily as opposed to as needed, and outpatient follow-up with her primary care provider. <Elizabeth Ignacio CNP - Last Filed: 03/31/22 02:07> Time: 02:01 <Elizabeth Ignacio CNP - Last Filed: 03/31/22 02:07> Medications Administered Discontinued Medications Generic Name Dose Route Start Last Admin Trade Name Татьяна PRN Reason Stop Dose Admin Al Hydroxide/Mg Hydroxide 30 ml 03/31/22 00:29 03/31/22 01:14 Magnesium Hydrox/Alum Hydrox 30 Ml Oral.Susp PO 03/31/22 00:30 30 ml ONCE ONE Administration Famotidine 20 mg 03/31/22 00:29 03/31/22 01:14 Famotidine 20 Mg Tablet PO 03/31/22 00:30 20 mg ONCE ONE Administration Sodium Chloride 1,000 mls @ 999 mls/hr 03/31/22 00:30 03/31/22 01:17 Ns IV 03/31/22 01:30 999 mls/hr .Q1H1M CHRISTOPHER Administration Iohexol 85 ml 03/31/22 00:57 03/31/22 00:58 Iohexol 350 Mg/Ml 100 Ml Infus..Btl IV 03/31/22 00:58 85 ml ONCE ONE Administration Ketorolac Tromethamine 15 mg 03/31/22 00:29 03/31/22 01:14 Ketorolac Tromethamine 15 Mg/Ml Vial IVPUSH 03/31/22 00:30 15 mg ONCE ONE Administration Lidocaine HCl 15 ml 03/31/22 00:29 03/31/22 01:14 Lidocaine Hcl Viscous 2 % 15 Ml Solution MUCOUS MEM 03/31/22 00:30 15 ml ONCE ONE Administration Ondansetron HCl 4 mg 03/31/22 00:29 03/31/22 01:14 Ondansetron Hcl 4 Mg/2 Ml Vial IVPUSH 03/31/22 00:30 4 mg ONCE ONE Administration <Elizabeth Ignacio CNP - Last Filed: 03/31/22 02:07> Medications Administered Discontinued Medications Generic Name Dose Route Start Last Admin Trade Name Татьяна PRN Reason Stop Dose Admin Al Hydroxide/Mg Hydroxide 30 ml 03/31/22 00:29 03/31/22 01:14 Magnesium Hydrox/Alum Hydrox 30 Ml Oral.Susp PO 03/31/22 00:30 30 ml ONCE ONE Administration Famotidine 20 mg 03/31/22 00:29 03/31/22 01:14 Famotidine 20 Mg Tablet PO 03/31/22 00:30 20 mg ONCE ONE Administration Sodium Chloride 1,000 mls @ 999 mls/hr 03/31/22 00:30 03/31/22 01:17 Ns IV 03/31/22 01:30 999 mls/hr .Q1H1M CHRISTOPHER Administration Iohexol 85 ml 03/31/22 00:57 03/31/22 00:58 Iohexol 350 Mg/Ml 100 Ml Infus..Btl IV 03/31/22 00:58 85 ml ONCE ONE Administration Ketorolac Tromethamine 15 mg 03/31/22 00:29 03/31/22 01:14 Ketorolac Tromethamine 15 Mg/Ml Vial IVPUSH 03/31/22 00:30 15 mg ONCE ONE Administration Lidocaine HCl 15 ml 03/31/22 00:29 03/31/22 01:14 Lidocaine Hcl Viscous 2 % 15 Ml Solution MUCOUS MEM 03/31/22 00:30 15 ml ONCE ONE Administration Ondansetron HCl 4 mg 03/31/22 00:29 03/31/22 01:14 Ondansetron Hcl 4 Mg/2 Ml Vial IVPUSH 03/31/22 00:30 4 mg ONCE ONE Administration <Federica Larios MD - Last Filed: 03/31/22 05:44> Medical Decision Making Medical Decision Making MDM Narrative: Patient is a 67-year-old female with a past medical history of anxiety, dyslipidemia, hypertension, GERD, cervical cancer s/p partial hysterectomy, IBS, osteopenia, ALONZO, P 79 who presents to the emergency department for evaluation of epigastric pain, palpitations, and nausea. Overall she is well-appearing, she does seem anxious, blood pressure is elevated 186/97, tachycardic at 111, afebrile without tachypnea or hypoxia. Abdominal examination most notable for epigastric tenderness upon palpation. Will obtain CBC to evaluate for leukocytosis/ anemia, CMP and lipase to evaluate for abnormal electrolytes /abnormal renal function/ abnormal hepatic/biliary function, EKG and troponin to evaluate for ischemia/ACS, D-Dimer, urinalysis CT of abdomen and pelvis to evaluate for acute cholecystitis, obstruction, pancreatitis, low suspicion for appendicitis, diverticulitis. patient received 1 L normal saline IV fluid, ondansetron IV for nausea, will trial Toradol IV and GI cocktail for pain. Disposition pending results. <Elizabeth Ignacio CNP - Last Filed: 03/31/22 02:07> Differential Diagnosis Differential Diagnoses: The differential diagnosis associated with the presentation includes ( As noted above) <Elizabeth Mendenhallvivian Ignacio CNP - Last Filed: 03/31/22 02:07> Lab Data MDM Lab Attestation statement: I reviewed the patient's lab results. <Elizabeth Dial HATTIE Ignacio - Last Filed: 03/31/22 02:07> Result Diagrams: 03/31/22 00:11 03/31/22 00:11 <Elizabeth Ignacio CNP - Last Filed: 03/31/22 02:07> Labs: Lab Results 03/31/22 03/31/22 03/31/22 Range/Units 00:02 00:05 00:11 WBC 7.4 (4.8-10.8) X10*3/uL RBC 4.69 (4.20-5.50) X10*6/uL Hgb 13.6 (12.0-16.0) g/dl Hct 41.5 (37.0-47.0) % MCV 88.5 (80.0-98.0) fL MCH 29.0 (27.0-33.0) pg MCHC 32.8 (31.0-35.0) g/dl RDW 13.2 (11.0-16.0) % Plt Count 185 (160-400) X10*3/uL MPV 11.4 (9.4-12.3) fL Immature Gran % (Auto) 0.1 (0.0-0.4) % Neut % (Auto) 70.2 (45-73) % Lymph % (Auto) 16.4 L (20-40) % [place] % (Auto) 6.6 (2-11) % Eos % (Auto) 5.9 H (0-4) % Baso % (Auto) 0.8 (0-2) % Lymph # (Auto) 1.2 (1.2-4.9) X10*3/uL [place] # (Auto) 0.5 (0.1-1.2) X10*3/uL Eos # (Auto) 0.4 (0.0-0.4) X10*3/uL Baso # (Auto) 0.1 (0.0-0.2) X10*3/uL Abs Immat Gran (auto) 0.01 (0.00-0.03) X10*3/uL Absolute Neuts (auto) 5.2 (2.0-8.3) x10*3/uL Absolute Nucleated RBC 0.000 (0.0-0.012) X10*3/uL Nucleated RBC % (auto) 0.0 (0.0-0.2) /100WBC D-Dimer High Sensitivty NG/ML Sodium (135-145) mmol/L Potassium (3.3-5.1) mmol/L Chloride (96-108) mmol/L Carbon Dioxide (22-29) mmol/L Anion Gap (12-20) BUN (9-16) mg/dL Creatinine (0.5-1.4) mg/dL Estim Creat Clear Calc Estimated GFR Random Glucose (60-115) mg/dL Calcium (8.4-10.2) mg/dL Total Bilirubin (0.0-1.0) mg/dL Direct Bilirubin (0.0-0.5) mg/dL AST (5-31) U/L ALT (0-31) U/L Alkaline Phosphatase (39-117) U/L Troponin I High Sens (<3.5-17.0) ng/L Total Protein (6.5-8.0) g/dL Albumin (3.5-5.0) g/dL Lipase (8-78) U/L Urine Color Yellow Urine Appearance Clear Urine pH 6.5 (5.0-9.0) Ur Specific [place] <= 1.005 (1.005-1.025) Urine Protein Negative (Neg-Trace) mg/dL Urine Glucose (UA) Negative (Negative) mg/dL Urine Ketones Negative (Negative) mg/dL Urine Blood Negative (Negative) Urine Nitrite Negative (Negative) Ur Leukocyte Esterase Small (1+) H (Negative) Urine RBC 0-2 (0-2) /HPF Urine WBC 0-5 (0-5) /HPF Ur Squamous Epith Cells 0-2 (0-2) /HPF Urine Bacteria None Seen (None Seen) Hyaline Casts 0-2 (0-2) /LPF COVID-19 (PHI) Negative (Negative) COVID-19 Clin Com See Note 03/31/22 03/31/22 03/31/22 Range/Units 00:11 00:11 00:11 WBC (4.8-10.8) X10*3/uL RBC (4.20-5.50) X10*6/uL Hgb (12.0-16.0) g/dl Hct (37.0-47.0) % MCV (80.0-98.0) fL MCH (27.0-33.0) pg MCHC (31.0-35.0) g/dl RDW (11.0-16.0) % Plt Count (160-400) X10*3/uL MPV (9.4-12.3) fL Immature Gran % (Auto) (0.0-0.4) % Neut % (Auto) (45-73) % Lymph % (Auto) (20-40) % [place] % (Auto) (2-11) % Eos % (Auto) (0-4) % Baso % (Auto) (0-2) % Lymph # (Auto) (1.2-4.9) X10*3/uL [place] # (Auto) (0.1-1.2) X10*3/uL Eos # (Auto) (0.0-0.4) X10*3/uL Baso # (Auto) (0.0-0.2) X10*3/uL Abs Immat Gran (auto) (0.00-0.03) X10*3/uL Absolute Neuts (auto) (2.0-8.3) x10*3/uL Absolute Nucleated RBC (0.0-0.012) X10*3/uL Nucleated RBC % (auto) (0.0-0.2) /100WBC D-Dimer High Sensitivty < 150 NG/ML Sodium 142 (135-145) mmol/L Potassium 4.1 (3.3-5.1) mmol/L Chloride 104 (96-108) mmol/L Carbon Dioxide 27 (22-29) mmol/L Anion Gap 15 (12-20) BUN 14 (9-16) mg/dL Creatinine 0.99 (0.5-1.4) mg/dL Estim Creat Clear Calc 53.0 Estimated GFR 56 Random Glucose 99 (60-115) mg/dL Calcium 9.5 (8.4-10.2) mg/dL Total Bilirubin (0.0-1.0) mg/dL Direct Bilirubin (0.0-0.5) mg/dL AST (5-31) U/L ALT (0-31) U/L Alkaline Phosphatase (39-117) U/L Troponin I High Sens 5.7 (<3.5-17.0) ng/L Total Protein (6.5-8.0) g/dL Albumin (3.5-5.0) g/dL Lipase (8-78) U/L Urine Color Urine Appearance Urine pH (5.0-9.0) Ur Specific [place] (1.005-1.025) Urine Protein (Neg-Trace) mg/dL Urine Glucose (UA) (Negative) mg/dL Urine Ketones (Negative) mg/dL Urine Blood (Negative) Urine Nitrite (Negative) Ur Leukocyte Esterase (Negative) Urine RBC (0-2) /HPF Urine WBC (0-5) /HPF Ur Squamous Epith Cells (0-2) /HPF Urine Bacteria (None Seen) Hyaline Casts (0-2) /LPF COVID-19 (PHI) (Negative) COVID-19 Clin Com 03/31/22 03/31/22 Range/Units 00:11 03:39 WBC (4.8-10.8) X10*3/uL RBC (4.20-5.50) X10*6/uL Hgb (12.0-16.0) g/dl Hct (37.0-47.0) % MCV (80.0-98.0) fL MCH (27.0-33.0) pg MCHC (31.0-35.0) g/dl RDW (11.0-16.0) % Plt Count (160-400) X10*3/uL MPV (9.4-12.3) fL Immature Gran % (Auto) (0.0-0.4) % Neut % (Auto) (45-73) % Lymph % (Auto) (20-40) % [place] % (Auto) (2-11) % Eos % (Auto) (0-4) % Baso % (Auto) (0-2) % Lymph # (Auto) (1.2-4.9) X10*3/uL [place] # (Auto) (0.1-1.2) X10*3/uL Eos # (Auto) (0.0-0.4) X10*3/uL Baso # (Auto) (0.0-0.2) X10*3/uL Abs Immat Gran (auto) (0.00-0.03) X10*3/uL Absolute Neuts (auto) (2.0-8.3) x10*3/uL Absolute Nucleated RBC (0.0-0.012) X10*3/uL Nucleated RBC % (auto) (0.0-0.2) /100WBC D-Dimer High Sensitivty NG/ML Sodium (135-145) mmol/L Potassium (3.3-5.1) mmol/L Chloride (96-108) mmol/L Carbon Dioxide (22-29) mmol/L Anion Gap (12-20) BUN (9-16) mg/dL Creatinine (0.5-1.4) mg/dL Estim Creat Clear Calc Estimated GFR Random Glucose (60-115) mg/dL Calcium (8.4-10.2) mg/dL Total Bilirubin 0.4 (0.0-1.0) mg/dL Direct Bilirubin 0.2 (0.0-0.5) mg/dL AST 26 (5-31) U/L ALT 22 (0-31) U/L Alkaline Phosphatase 67 (39-117) U/L Troponin I High Sens 38.5 H D (<3.5-17.0) ng/L Total Protein 7.7 (6.5-8.0) g/dL Albumin 4.6 (3.5-5.0) g/dL Lipase 48 (8-78) U/L Urine Color Urine Appearance Urine pH (5.0-9.0) Ur Specific [place] (1.005-1.025) Urine Protein (Neg-Trace) mg/dL Urine Glucose (UA) (Negative) mg/dL Urine Ketones (Negative) mg/dL Urine Blood (Negative) Urine Nitrite (Negative) Ur Leukocyte Esterase (Negative) Urine RBC (0-2) /HPF Urine WBC (0-5) /HPF Ur Squamous Epith Cells (0-2) /HPF Urine Bacteria (None Seen) Hyaline Casts (0-2) /LPF COVID-19 (PHI) (Negative) COVID-19 Clin Com <Elizabeth Ignacio, [employer] - Last Filed: 03/31/22 02:07> Lab Results 03/31/22 03/31/22 03/31/22 Range/Units 00:02 00:05 00:11 WBC 7.4 (4.8-10.8) X10*3/uL RBC 4.69 (4.20-5.50) X10*6/uL Hgb 13.6 (12.0-16.0) g/dl Hct 41.5 (37.0-47.0) % MCV 88.5 (80.0-98.0) fL MCH 29.0 (27.0-33.0) pg MCHC 32.8 (31.0-35.0) g/dl RDW 13.2 (11.0-16.0) % Plt Count 185 (160-400) X10*3/uL MPV 11.4 (9.4-12.3) fL Immature Gran % (Auto) 0.1 (0.0-0.4) % Neut % (Auto) 70.2 (45-73) % Lymph % (Auto) 16.4 L (20-40) % [place] % (Auto) 6.6 (2-11) % Eos % (Auto) 5.9 H (0-4) % Baso % (Auto) 0.8 (0-2) % Lymph # (Auto) 1.2 (1.2-4.9) X10*3/uL [place] # (Auto) 0.5 (0.1-1.2) X10*3/uL Eos # (Auto) 0.4 (0.0-0.4) X10*3/uL Baso # (Auto) 0.1 (0.0-0.2) X10*3/uL Abs Immat Gran (auto) 0.01 (0.00-0.03) X10*3/uL Absolute Neuts (auto) 5.2 (2.0-8.3) x10*3/uL Absolute Nucleated RBC 0.000 (0.0-0.012) X10*3/uL Nucleated RBC % (auto) 0.0 (0.0-0.2) /100WBC D-Dimer High Sensitivty NG/ML Sodium (135-145) mmol/L Potassium (3.3-5.1) mmol/L Chloride (96-108) mmol/L Carbon Dioxide (22-29) mmol/L Anion Gap (12-20) BUN (9-16) mg/dL Creatinine (0.5-1.4) mg/dL Estim Creat Clear Calc Estimated GFR Random Glucose (60-115) mg/dL Calcium (8.4-10.2) mg/dL Total Bilirubin (0.0-1.0) mg/dL Direct Bilirubin (0.0-0.5) mg/dL AST (5-31) U/L ALT (0-31) U/L Alkaline Phosphatase (39-117) U/L Troponin I High Sens (<3.5-17.0) ng/L Total Protein (6.5-8.0) g/dL Albumin (3.5-5.0) g/dL Lipase (8-78) U/L Urine Color Yellow Urine Appearance Clear Urine pH 6.5 (5.0-9.0) Ur Specific [place] <= 1.005 (1.005-1.025) Urine Protein Negative (Neg-Trace) mg/dL Urine Glucose (UA) Negative (Negative) mg/dL Urine Ketones Negative (Negative) mg/dL Urine Blood Negative (Negative) Urine Nitrite Negative (Negative) Ur Leukocyte Esterase Small (1+) H (Negative) Urine RBC 0-2 (0-2) /HPF Urine WBC 0-5 (0-5) /HPF Ur Squamous Epith Cells 0-2 (0-2) /HPF Urine Bacteria None Seen (None Seen) Hyaline Casts 0-2 (0-2) /LPF COVID-19 (PHI) Negative (Negative) COVID-19 Clin Com See Note 03/31/22 03/31/22 03/31/22 Range/Units 00:11 00:11 00:11 WBC (4.8-10.8) X10*3/uL RBC (4.20-5.50) X10*6/uL Hgb (12.0-16.0) g/dl Hct (37.0-47.0) % MCV (80.0-98.0) fL MCH (27.0-33.0) pg MCHC (31.0-35.0) g/dl RDW (11.0-16.0) % Plt Count (160-400) X10*3/uL MPV (9.4-12.3) fL Immature Gran % (Auto) (0.0-0.4) % Neut % (Auto) (45-73) % Lymph % (Auto) (20-40) % [place] % (Auto) (2-11) % Eos % (Auto) (0-4) % Baso % (Auto) (0-2) % Lymph # (Auto) (1.2-4.9) X10*3/uL [place] # (Auto) (0.1-1.2) X10*3/uL Eos # (Auto) (0.0-0.4) X10*3/uL Baso # (Auto) (0.0-0.2) X10*3/uL Abs Immat Gran (auto) (0.00-0.03) X10*3/uL Absolute Neuts (auto) (2.0-8.3) x10*3/uL Absolute Nucleated RBC (0.0-0.012) X10*3/uL Nucleated RBC % (auto) (0.0-0.2) /100WBC D-Dimer High Sensitivty < 150 NG/ML Sodium 142 (135-145) mmol/L Potassium 4.1 (3.3-5.1) mmol/L Chloride 104 (96-108) mmol/L Carbon Dioxide 27 (22-29) mmol/L Anion Gap 15 (12-20) BUN 14 (9-16) mg/dL Creatinine 0.99 (0.5-1.4) mg/dL Estim Creat Clear Calc 53.0 Estimated GFR 56 Random Glucose 99 (60-115) mg/dL Calcium 9.5 (8.4-10.2) mg/dL Total Bilirubin (0.0-1.0) mg/dL Direct Bilirubin (0.0-0.5) mg/dL AST (5-31) U/L ALT (0-31) U/L Alkaline Phosphatase (39-117) U/L Troponin I High Sens 5.7 (<3.5-17.0) ng/L Total Protein (6.5-8.0) g/dL Albumin (3.5-5.0) g/dL Lipase (8-78) U/L Urine Color Urine Appearance Urine pH (5.0-9.0) Ur Specific [place] (1.005-1.025) Urine Protein (Neg-Trace) mg/dL Urine Glucose (UA) (Negative) mg/dL Urine Ketones (Negative) mg/dL Urine Blood (Negative) Urine Nitrite (Negative) Ur Leukocyte Esterase (Negative) Urine RBC (0-2) /HPF Urine WBC (0-5) /HPF Ur Squamous Epith Cells (0-2) /HPF Urine Bacteria (None Seen) Hyaline Casts (0-2) /LPF COVID-19 (PHI) (Negative) COVID-19 Clin Com 03/31/22 03/31/22 Range/Units 00:11 03:39 WBC (4.8-10.8) X10*3/uL RBC (4.20-5.50) X10*6/uL Hgb (12.0-16.0) g/dl Hct (37.0-47.0) % MCV (80.0-98.0) fL MCH (27.0-33.0) pg MCHC (31.0-35.0) g/dl RDW (11.0-16.0) % Plt Count (160-400) X10*3/uL MPV (9.4-12.3) fL Immature Gran % (Auto) (0.0-0.4) % Neut % (Auto) (45-73) % Lymph % (Auto) (20-40) % [place] % (Auto) (2-11) % Eos % (Auto) (0-4) % Baso % (Auto) (0-2) % Lymph # (Auto) (1.2-4.9) X10*3/uL [place] # (Auto) (0.1-1.2) X10*3/uL Eos # (Auto) (0.0-0.4) X10*3/uL Baso # (Auto) (0.0-0.2) X10*3/uL Abs Immat Gran (auto) (0.00-0.03) X10*3/uL Absolute Neuts (auto) (2.0-8.3) x10*3/uL Absolute Nucleated RBC (0.0-0.012) X10*3/uL Nucleated RBC % (auto) (0.0-0.2) /100WBC D-Dimer High Sensitivty NG/ML Sodium (135-145) mmol/L Potassium (3.3-5.1) mmol/L Chloride (96-108) mmol/L Carbon Dioxide (22-29) mmol/L Anion Gap (12-20) BUN (9-16) mg/dL Creatinine (0.5-1.4) mg/dL Estim Creat Clear Calc Estimated GFR Random Glucose (60-115) mg/dL Calcium (8.4-10.2) mg/dL Total Bilirubin 0.4 (0.0-1.0) mg/dL Direct Bilirubin 0.2 (0.0-0.5) mg/dL AST 26 (5-31) U/L ALT 22 (0-31) U/L Alkaline Phosphatase 67 (39-117) U/L Troponin I High Sens 38.5 H D (<3.5-17.0) ng/L Total Protein 7.7 (6.5-8.0) g/dL Albumin 4.6 (3.5-5.0) g/dL Lipase 48 (8-78) U/L Urine Color Urine Appearance Urine pH (5.0-9.0) Ur Specific [place] (1.005-1.025) Urine Protein (Neg-Trace) mg/dL Urine Glucose (UA) (Negative) mg/dL Urine Ketones (Negative) mg/dL Urine Blood (Negative) Urine Nitrite (Negative) Ur Leukocyte Esterase (Negative) Urine RBC (0-2) /HPF Urine WBC (0-5) /HPF Ur Squamous Epith Cells (0-2) /HPF Urine Bacteria (None Seen) Hyaline Casts (0-2) /LPF COVID-19 (PHI) (Negative) COVID-19 Clin Com <Federica Larios MD - Last Filed: 03/31/22 05:44> Independent Interpretation I performed an independent interpretation of an: EKG and Plain X-Ray ( I have personally interpreted chest x-ray and agree with radiologist impression.) <Elizabeth Ignacio CNP - Last Filed: 03/31/22 02:07> Interpretation: Rate: 112 Rhythm:? sinus tachycardia [place]:? normal Normal P waves.? Normal YVETTE.?? Normal QRS complex.?? ST T wave :?? no ST elevation, no T-wave inversion. ST depression V3-V5 1mm. qTC: 472 The study has been interpreted contemporaneously by me. <Elizabeth Ignacio CNP - Last Filed: 03/31/22 02:07> Radiology Impression Discussion of test interpretation with radiology: I have reviewed the radiologist's reading. <Elizabeth Ignacio CNP - Last Filed: 03/31/22 02:07> Radiologist Impression: XR/XR chest 1V IMPRESSION: No acute pulmonary disease. CT/CT abdomen pelvis w IV con IMPRESSION: No acute findings in the abdomen or pelvis. No inflammatory changes. Moderate colonic stool burden. <Elizabeth Ignacio CNP - Last Filed: 03/31/22 02:07> External Record Review External record reviewed: Outpatient record ( Primary care provider; Dr. Soni 03/27/22 ; new Rx for famotidine) <Elizabeth Ignacio CNP - Last Filed: 03/31/22 02:07> Discharge Plan Discharge Clinical Impression: Epigastric pain, Elevated troponin <Elizabeth Ignacio CNP - Last Filed: 03/31/22 02:07> Patient Disposition: Still a Patient <Elizabeth Ignacio CNP - Last Filed: 03/31/22 02:07> Prescriptions: No Action tizanidine 2 mg tablet 2 mg PO TID PRN (Reason: muscle spasticity) 30 Days Qty: 90 12RF hydroxyzine HCl 10 mg tablet 10 mg PO TID PRN (Reason: for itch) Qty: 30 0RF diclofenac sodium 1 % gel 2 g topical BID PRN (Reason: pain) Qty: 100 2RF Rx Instructions: Do not use when taking oral meloxicam tamsulosin 0.4 mg capsule 0.4 mg PO BEDTIME Qty: 30 0RF escitalopram oxalate 10 mg tablet 10 mg PO DAILY gabapentin 600 mg tablet 600 mg PO TID loratadine 10 mg tablet 10 mg PO DAILY aspirin 81 mg tablet,delayed release (DR/EC) 81 mg PO DAILY lorazepam 0.5 mg tablet [id number]? mg PO DAILY PRN bupropion HCl 150 mg tablet extended release 24 hr 75 mg PO QAM zolpidem 5 mg tablet PO amitriptyline 10 mg tablet 10 mg PO BEDTIME fluticasone propionate 50 mcg/actuation spray,suspension intranasal ymbertnt-vjhqrum-wfud-lutein Tablet PO mupirocin 2 % ointment 1 appl topical TID 5 Days Qty: 22 0RF triamcinolone acetonide 0.1 % ointment topical BID PRN ketoconazole 2 % shampoo topical meloxicam 15 mg tablet 15 mg PO DAILY Qty: 14 0RF amoxicillin 500 mg capsule 500 mg PO Q12H Qty: 14 0RF famotidine 40 mg tablet 40 mg PO DAILY PRN (Reason: heartburn ) Qty: 30 2RF prednisolone acetate 1 % drops,suspension 0 drp ophthalmic (eye) <Elizabeth Ignacio, HATTIE - Last Filed: 03/31/22 02:07>
[2022-03-31 00:21] LABS: MANUAL DIFF FLAG NO
[2022-03-31 00:22] LABS: Basophils Absolute Auto 0.1 X10*3/uL (0.0-0.2); Basophils Percent Auto 0.8 % (0-2); Eosinophils Absolute Auto 0.4 X10*3/uL (0.0-0.4); Eosinophils Percent Auto 5.9 % (0-4); Hematocrit 41.5 % (37.0-47.0); Hemoglobin 13.6 g/dl (12.0-16.0); Imm Gran Abs Auto 0.01 X10*3/uL (0.00-0.03); Imm Gran Pct Auto 0.1 % (0.0-0.4); Lymphocytes Absolute Auto 1.2 X10*3/uL (1.2-4.9); Lymphocytes Percent Auto 16.4 % (20-40); Mean Corpuscular HGB Conc 32.8 g/dl (31.0-35.0); Mean Corpuscular Volume 88.5 fL (80.0-98.0); Mean Platelet Volume 11.4 fL (9.4-12.3); Monocytes Absolute Auto 0.5 X10*3/uL (0.1-1.2); Monocytes Percent Auto 6.6 % (2-11); Neutrophils Absolute Auto 5.2 x10*3/uL (2.0-8.3); Neutrophils Percent Auto 70.2 % (45-73); Platelet Count 185 X10*3/uL (160-400); Red Blood Count 4.69 X10*6/uL (4.20-5.50); Red Cell Distribution Width 13.2 % (11.0-16.0); White Blood Count 7.4 X10*3/uL (4.8-10.8)
[2022-03-31 00:23] LABS: Appearance Urine Clear; Color Urine Yellow; Glucose Urine UA Negative (Negative); Leukocyte Esterase Urine Small (1+) (Negative); Nitrite Urine Negative (Negative); PH 6.5 (5.0-9.0); Specific Gravity - Urine <= 1.005 (1.005-1.025); UMIC TRIGGER UACC YES; Urine Blood Negative (Negative); Urine Ketones Negative (Negative); Urine Protein Negative (Neg-Trace)
[2022-03-31 00:30] LABS: D Dimer High Sensitivity < 150 NG/ML
[2022-03-31 00:40] LABS: Anion Gap 15 (12-20); Blood Urea Nitrogen 14 mg/dL (9-16); Calcium 9.5 mg/dL (8.4-10.2); Carbon Dioxide 27 mmol/L (22-29); Chloride 104 mmol/L (96-108); Estimated Glomerular Filt Rate 56; Glucose Random 99 mg/dL (60-115); Potassium 4.1 mmol/L (3.3-5.1); Sodium 142 mmol/L (135-145)
[2022-03-31 00:41] LABS: COVID-19 Test Negative (Negative); IDNOW Serial# 6674DD1D
[2022-03-31 00:41] LABS: Alanine Aminotransferase 22 U/L (0-31); Albumin Level 4.6 g/dL (3.5-5.0); Alkaline Phosphatase 67 U/L (39-117); Aspartate Amino Transferase 26 U/L (5-31); Bilirubin Direct 0.2 mg/dL (0.0-0.5); Bilirubin Total 0.4 mg/dL (0.0-1.0); Lipase 48 U/L (8-78); Total Protein 7.7 g/dL (6.5-8.0)
[2022-03-31 00:42] LABS: Bacteria Urine None Seen (None Seen); Hyaline Casts Urine 0-2 /LPF (0-2); RBC Urine 0-2 /HPF (0-2); Squamous Epithelial Cell Urine 0-2 /HPF (0-2); UACC Culture Trigger YES; WBC Urine 0-5 /HPF (0-5)
[2022-03-31 00:44] LABS: Troponin-I High Sensitivity 5.7 ng/L (<3.5-17.0)
[2022-03-31] MEDS: iohexoL 350 MG/ML 100 ML INFUS..BTL 85 ML IV (00:58)
--- NOTE | 2022-03-31 01:05 | PC.NURSE ---
Came in to give medications patient is still in Ct scan.
[2022-03-31] MEDS: Lidocaine HCl Viscous 2 % 15 ML SOLUTION MUCOUS MEM (01:14)
[2022-03-31] MEDS: Ketorolac Tromethamine 15 MG/ML VIAL IVPUSH (01:14)
[2022-03-31] MEDS: Famotidine 20 MG TABLET PO (01:14)
[2022-03-31] MEDS: ondansetron HCL 4 MG/2 ML VIAL IVPUSH (01:14)
[2022-03-31] MEDS: Magnesium Hydrox/Alum Hydrox 30 ML ORAL.SUSP PO (01:14)
[2022-03-31] MEDS: 0.9 % Sodium Chloride 1,000 ML 999 ML IV (01:17)
--- NOTE | 2022-03-31 02:26 | PC.NURSE ---
Patient ambulating independently to bathroom. Patient now c/o gas pain 5/10 says it just is annoying. next troponin is due at 3am, first was negative. tele:sinus rythym-sinus tachycardia.
[2022-03-31 04:12] LABS: Troponin-I High Sensitivity 38.5 ng/L (<3.5-17.0)
--- NOTE | 2022-03-31 07:21 | ECG_ITS ---
Test Reason : chest pain Blood Pressure : / mmHG Vent. Rate : 083 BPM Atrial Rate : 083 BPM P-R Int : 154 ms QRS Dur : 082 ms QT Int : 380 ms P-R-T Axes : 036 016 027 degrees QTc Int : 446 ms Normal sinus rhythm Normal ECG When compared with ECG of 30-MAR-2022 23:53, ST no longer depressed in Lateral leads Referred By: Javed Segovia Electronically Signed By:GEMMA SALINAS MD
[2022-03-31 07:39] LABS: Troponin-I High Sensitivity 50.3 ng/L (<3.5-17.0)
[2022-03-31] MEDS: Aspirin 81 MG TAB.CHEW 324 MG PO (07:52)
[2022-03-31] MEDS: Nitroglycerin 0.4 MG TAB.SUBL SUBLINGUAL (07:55)
--- NOTE | 2022-03-31 08:03 | ED_ITS ---
HPI - Chest Pain General Chief Complaint: Chest Pain Stated Complaint: chest pain, vomiting Time Seen by Provider: 03/30/22 23:58 Source: patient Mode of arrival: ambulatory Limitations: no limitations Related Data Home Medications Medication Instructions Recorded Confirmed aspirin 81 mg tablet,delayed 81 mg PO DAILY 02/02/20 03/31/22 release escitalopram oxalate 10 mg tablet 10 mg PO DAILY@1300 PRN depression 02/02/20 03/31/22 gabapentin 600 mg tablet 1,200 mg PO BEDTIME 02/02/20 03/31/22 loratadine 10 mg tablet 10 mg PO DAILY 02/02/20 03/31/22 lorazepam 0.5 mg tablet 0.5 mg PO DAILY PRN Anxiety 02/02/20 03/31/22 amitriptyline 10 mg tablet 10 mg PO BEDTIME 03/04/21 03/31/22 fluticasone propionate 50 1 spray intranasal DAILY 03/04/21 03/31/22 mcg/actuation nasal spray,suspension zolpidem 5 mg tablet 2.5 mg PO BEDTIME PRN Insomnia 03/04/21 03/31/22 ketoconazole 2 % shampoo 1 appl topical MOFR@0900 05/19/21 03/31/22 triamcinolone acetonide 0.1 % 1 appl topical BID PRN Dry Skin 05/19/21 03/31/22 topical ointment betamethasone dipropionate 0.05 % 1 appl topical DAILY PRN Dry Skin 03/31/22 03/31/22 topical ointment bupropion HCl 75 mg tablet 1 tab PO DAILY 03/31/22 03/31/22 gabapentin 600 mg tablet 1 tab PO DAILY 03/31/22 03/31/22 geriatric efpuhyha-pgfy-dwjm 1 tab PO DAILY 03/31/22 03/31/22 (Centravites 50 Plus tablet) hydroxyzine HCl 25 mg tablet 1 tab PO DAILY PRN anxiety or 03/31/22 03/31/22 itching omega 4-afq-zuj-fish oil 1,000 mg 1 cap PO DAILY 03/31/22 03/31/22 (120 mg-180 mg) capsule (Fish Oil) tacrolimus 0.1 % topical ointment 1 applic topical Q OTHER DAY 03/31/22 03/31/22 vitamin E 1,000 unit tablet 2 tab PO DAILY 03/31/22 03/31/22 Previous Rx's Medication Instructions Recorded diclofenac sodium 1 % topical gel 2 g topical BID PRN pain #100 grams 12/19/21 tamsulosin 0.4 mg capsule 0.4 mg PO BEDTIME #30 caps 03/25/22 Allergies Allergy/AdvReac Type Severity Reaction Status Date / Time No Known Allergies Allergy Verified 03/27/22 12:11 [facility] Past Medical History Medical History Anxiety Disc degeneration, lumbar Dyslipidemia Essential hypertension GERD (gastroesophageal reflux disease) Hip pain, left History of cervical cancer Irritable bowel syndrome with constipation Osteopenia Spondylosis of lumbar joint Surgical menopause Weak urinary stream Surgical History History of partial hysterectomy Family History Family History Father Throat cancer Mother No problems noted. Brother No problems noted. Sister No problems noted. Sister No problems noted. Sister No problems noted. Sister Hyperlipidemia HTN (hypertension) Depression Myocardial infarction Daughter No problems noted. Daughter No problems noted. Daughter No problems noted. Daughter No problems noted. Other Mental health disorder Substance use disorder Social History Social History Housing: Apartment Alcohol intake: current Alcohol intake frequency: does not drink Alcohol type: wine Patient Tobacco Use Status: Former Tobacco user Quit Date: 12 years ago e-Cigarette/Vaping Use: Never Used Advance Directives Date on File: 12/21/19 service: No Current occupational status: unemployed Cognitive needs: No Hearing needs: No Vision needs: No Physical Exam Vital Signs: Vital Signs: Last Vital Signs Temp 97.2 F 03/31/22 07:09 Pulse 70 03/31/22 15:15 Resp 13 03/31/22 15:15 BP 145/66 H 03/31/22 15:15 Pulse Ox 99 03/31/22 15:15 O2 Del Method 03/31/22 15:15 BMI result Body Mass Index 25.7 Course Reevaluation(s) Reevaluation #1: Pt was signed out to me at 6.[address] AM [address] Anna with the sign out to check tropi#3. 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 Reapet EKG this am no ST elevation. I updated pt daughter and pt Time: 08:07 Reevaluation #2: Seen by Asbestos Siding Mechanic in ED see consult possible transfer to [facility] will keep NPO Time: 09:52 Reevaluation #3: Asbestos Siding Mechanic arranged transfer to [facility] Dr Pritchett accept Medications Administered Generic Name Dose Route Start Last Admin Trade Name Freq PRN Reason Stop Dose Admin Heparin Sodium/Sodium Chloride 25,000 unit in 250 mls @ 0 mls/hr 03/31/22 08:30 03/31/22 09:18 Heparin Sodium,Porcine/1/2ns IVCONT 12 units/kg/hr .Q0M CHRISTOPHER 8.41 mls/hr Administration Protocol Per Protocol Nitroglycerin 0.4 mg 03/31/22 07:43 03/31/22 07:55 Nitroglycerin 0.4 Mg Tab.Subl SUBLINGUAL 0.4 mg Q5MX3 PRN Administration Chest Pain Sodium Chloride 3 ml 03/31/22 16:00 03/31/22 16:15 0.9 % Sodium Chloride Flush 3 Ml Syringe IVFLUSH Not Given QSHIFT CHRISTOPHER Discontinued Medications Generic Name Dose Route Start Last Admin Trade Name Freq PRN Reason Stop Dose Admin Al Hydroxide/Mg Hydroxide 30 ml 03/31/22 00:29 03/31/22 01:14 Magnesium Hydrox/Alum Hydrox 30 Ml Oral.Susp PO 03/31/22 00:30 30 ml ONCE ONE Administration Aspirin 324 mg 03/31/22 07:43 03/31/22 07:52 Aspirin 81 Mg Tab.Chew PO 03/31/22 07:44 324 mg ONCE ONE Administration Atorvastatin Calcium 80 mg 03/31/22 09:25 03/31/22 09:57 Atorvastatin Calcium 80 Mg Tablet PO 03/31/22 09:26 80 mg ONCE ONE Administration Famotidine 20 mg 03/31/22 00:29 03/31/22 01:14 Famotidine 20 Mg Tablet PO 03/31/22 00:30 20 mg ONCE ONE Administration Heparin Sodium (Porcine) 4,000 unit 03/31/22 08:26 03/31/22 09:15 Heparin Sodium,Porcine 5,000 Unit/Ml Vial IVPUSH 03/31/22 08:27 4,000 unit ONCE ONE Administration Sodium Chloride 1,000 mls @ 999 mls/hr 03/31/22 00:30 03/31/22 01:17 Ns IV 03/31/22 01:30 999 mls/hr .Q1H1M CHRISTOPHER Administration Iohexol 85 ml 03/31/22 00:57 03/31/22 00:58 Iohexol 350 Mg/Ml 100 Ml Infus..Btl IV 03/31/22 00:58 85 ml ONCE ONE Administration Ketorolac Tromethamine 15 mg 03/31/22 00:29 03/31/22 01:14 Ketorolac Tromethamine 15 Mg/Ml Vial IVPUSH 03/31/22 00:30 15 mg ONCE ONE Administration Lidocaine HCl 15 ml 03/31/22 00:29 03/31/22 01:14 Lidocaine Hcl Viscous 2 % 15 Ml Solution MUCOUS MEM 03/31/22 00:30 15 ml ONCE ONE Administration Metoprolol Tartrate 25 mg 03/31/22 09:07 03/31/22 09:35 Metoprolol Tartrate 25 Mg Tablet PO 03/31/22 09:08 25 mg ONCE ONE Administration Protocol Nitroglycerin 0.5 inch 03/31/22 09:07 03/31/22 09:34 Nitroglycerin 2 % Oint 1 Gm Packet TRANSDERMA 03/31/22 09:08 0.5 inch ONCE ONE Administration Ondansetron HCl 4 mg 03/31/22 00:29 03/31/22 01:14 Ondansetron Hcl 4 Mg/2 Ml Vial IVPUSH 03/31/22 00:30 4 mg ONCE ONE Administration Medical Decision Making Lab Data 03/31/22 00:11 03/31/22 00:11 Labs: Lab Results 03/31/22 03/31/22 03/31/22 Range/Units 00:02 00:05 00:11 WBC 7.4 (4.8-10.8) X10*3/uL RBC 4.69 (4.20-5.50) X10*6/uL Hgb 13.6 (12.0-16.0) g/dl Hct 41.5 (37.0-47.0) % MCV 88.5 (80.0-98.0) fL MCH 29.0 (27.0-33.0) pg MCHC 32.8 (31.0-35.0) g/dl RDW 13.2 (11.0-16.0) % Plt Count 185 (160-400) X10*3/uL MPV 11.4 (9.4-12.3) fL Immature Gran % (Auto) 0.1 (0.0-0.4) % Neut % (Auto) 70.2 (45-73) % Lymph % (Auto) 16.4 L (20-40) % [place] % (Auto) 6.6 (2-11) % Eos % (Auto) 5.9 H (0-4) % Baso % (Auto) 0.8 (0-2) % Lymph # (Auto) 1.2 (1.2-4.9) X10*3/uL [place] # (Auto) 0.5 (0.1-1.2) X10*3/uL Eos # (Auto) 0.4 (0.0-0.4) X10*3/uL Baso # (Auto) 0.1 (0.0-0.2) X10*3/uL Abs Immat Gran (auto) 0.01 (0.00-0.03) X10*3/uL Absolute Neuts (auto) 5.2 (2.0-8.3) x10*3/uL Absolute Nucleated RBC 0.000 (0.0-0.012) X10*3/uL Nucleated RBC % (auto) 0.0 (0.0-0.2) /100WBC PT (10.0-13.1) SEC INR (0.9-1.1) aPTT Heparin Protocol (53-77.9) SEC D-Dimer High Sensitivty NG/ML Sodium (135-145) mmol/L Potassium (3.3-5.1) mmol/L Chloride (96-108) mmol/L Carbon Dioxide (22-29) mmol/L Anion Gap (12-20) BUN (9-16) mg/dL Creatinine (0.5-1.4) mg/dL Estim Creat Clear Calc Estimated GFR Random Glucose (60-115) mg/dL Calcium (8.4-10.2) mg/dL Total Bilirubin (0.0-1.0) mg/dL Direct Bilirubin (0.0-0.5) mg/dL AST (5-31) U/L ALT (0-31) U/L Alkaline Phosphatase (39-117) U/L Troponin I High Sens (<3.5-17.0) ng/L Total Protein (6.5-8.0) g/dL Albumin (3.5-5.0) g/dL Lipase (8-78) U/L Urine Color Yellow Urine Appearance Clear Urine pH 6.5 (5.0-9.0) Ur Specific [place] <= 1.005 (1.005-1.025) Urine Protein Negative (Neg-Trace) mg/dL Urine Glucose (UA) Negative (Negative) mg/dL Urine Ketones Negative (Negative) mg/dL Urine Blood Negative (Negative) Urine Nitrite Negative (Negative) Ur Leukocyte Esterase Small (1+) H (Negative) Urine RBC 0-2 (0-2) /HPF Urine WBC 0-5 (0-5) /HPF Ur Squamous Epith Cells 0-2 (0-2) /HPF Urine Bacteria None Seen (None Seen) Hyaline Casts 0-2 (0-2) /LPF COVID-19 (PHI) Negative (Negative) COVID-19 Clin Com See Note 03/31/22 03/31/22 03/31/22 Range/Units 00:11 00:11 00:11 WBC (4.8-10.8) X10*3/uL RBC (4.20-5.50) X10*6/uL Hgb (12.0-16.0) g/dl Hct (37.0-47.0) % MCV (80.0-98.0) fL MCH (27.0-33.0) pg MCHC (31.0-35.0) g/dl RDW (11.0-16.0) % Plt Count (160-400) X10*3/uL MPV (9.4-12.3) fL Immature Gran % (Auto) (0.0-0.4) % Neut % (Auto) (45-73) % Lymph % (Auto) (20-40) % [place] % (Auto) (2-11) % Eos % (Auto) (0-4) % Baso % (Auto) (0-2) % Lymph # (Auto) (1.2-4.9) X10*3/uL [place] # (Auto) (0.1-1.2) X10*3/uL Eos # (Auto) (0.0-0.4) X10*3/uL Baso # (Auto) (0.0-0.2) X10*3/uL Abs Immat Gran (auto) (0.00-0.03) X10*3/uL Absolute Neuts (auto) (2.0-8.3) x10*3/uL Absolute Nucleated RBC (0.0-0.012) X10*3/uL Nucleated RBC % (auto) (0.0-0.2) /100WBC PT (10.0-13.1) SEC INR (0.9-1.1) aPTT Heparin Protocol (53-77.9) SEC D-Dimer High Sensitivty < 150 NG/ML Sodium 142 (135-145) mmol/L Potassium 4.1 (3.3-5.1) mmol/L Chloride 104 (96-108) mmol/L Carbon Dioxide 27 (22-29) mmol/L Anion Gap 15 (12-20) BUN 14 (9-16) mg/dL Creatinine 0.99 (0.5-1.4) mg/dL Estim Creat Clear Calc 53.0 Estimated GFR 56 Random Glucose 99 (60-115) mg/dL Calcium 9.5 (8.4-10.2) mg/dL Total Bilirubin (0.0-1.0) mg/dL Direct Bilirubin (0.0-0.5) mg/dL AST (5-31) U/L ALT (0-31) U/L Alkaline Phosphatase (39-117) U/L Troponin I High Sens 5.7 (<3.5-17.0) ng/L Total Protein (6.5-8.0) g/dL Albumin (3.5-5.0) g/dL Lipase (8-78) U/L Urine Color Urine Appearance Urine pH (5.0-9.0) Ur Specific [place] (1.005-1.025) Urine Protein (Neg-Trace) mg/dL Urine Glucose (UA) (Negative) mg/dL Urine Ketones (Negative) mg/dL Urine Blood (Negative) Urine Nitrite (Negative) Ur Leukocyte Esterase (Negative) Urine RBC (0-2) /HPF Urine WBC (0-5) /HPF Ur Squamous Epith Cells (0-2) /HPF Urine Bacteria (None Seen) Hyaline Casts (0-2) /LPF COVID-19 (PHI) (Negative) COVID-19 Clin Com 03/31/22 03/31/22 03/31/22 Range/Units 00:11 03:39 06:54 WBC (4.8-10.8) X10*3/uL RBC (4.20-5.50) X10*6/uL Hgb (12.0-16.0) g/dl Hct (37.0-47.0) % MCV (80.0-98.0) fL MCH (27.0-33.0) pg MCHC (31.0-35.0) g/dl RDW (11.0-16.0) % Plt Count (160-400) X10*3/uL MPV (9.4-12.3) fL Immature Gran % (Auto) (0.0-0.4) % Neut % (Auto) (45-73) % Lymph % (Auto) (20-40) % [place] % (Auto) (2-11) % Eos % (Auto) (0-4) % Baso % (Auto) (0-2) % Lymph # (Auto) (1.2-4.9) X10*3/uL [place] # (Auto) (0.1-1.2) X10*3/uL Eos # (Auto) (0.0-0.4) X10*3/uL Baso # (Auto) (0.0-0.2) X10*3/uL Abs Immat Gran (auto) (0.00-0.03) X10*3/uL Absolute Neuts (auto) (2.0-8.3) x10*3/uL Absolute Nucleated RBC (0.0-0.012) X10*3/uL Nucleated RBC % (auto) (0.0-0.2) /100WBC PT (10.0-13.1) SEC INR (0.9-1.1) aPTT Heparin Protocol (53-77.9) SEC D-Dimer High Sensitivty NG/ML Sodium (135-145) mmol/L Potassium (3.3-5.1) mmol/L Chloride (96-108) mmol/L Carbon Dioxide (22-29) mmol/L Anion Gap (12-20) BUN (9-16) mg/dL Creatinine (0.5-1.4) mg/dL Estim Creat Clear Calc Estimated GFR Random Glucose (60-115) mg/dL Calcium (8.4-10.2) mg/dL Total Bilirubin 0.4 (0.0-1.0) mg/dL Direct Bilirubin 0.2 (0.0-0.5) mg/dL AST 26 (5-31) U/L ALT 22 (0-31) U/L Alkaline Phosphatase 67 (39-117) U/L Troponin I High Sens 38.5 H D 50.3 H* (<3.5-17.0) ng/L Total Protein 7.7 (6.5-8.0) g/dL Albumin 4.6 (3.5-5.0) g/dL Lipase 48 (8-78) U/L Urine Color Urine Appearance Urine pH (5.0-9.0) Ur Specific [place] (1.005-1.025) Urine Protein (Neg-Trace) mg/dL Urine Glucose (UA) (Negative) mg/dL Urine Ketones (Negative) mg/dL Urine Blood (Negative) Urine Nitrite (Negative) Ur Leukocyte Esterase (Negative) Urine RBC (0-2) /HPF Urine WBC (0-5) /HPF Ur Squamous Epith Cells (0-2) /HPF Urine Bacteria (None Seen) Hyaline Casts (0-2) /LPF COVID-19 (PHI) (Negative) COVID-19 Clin Com 03/31/22 03/31/22 03/31/22 Range/Units 08:17 08:17 16:06 WBC 6.0 (4.8-10.8) X10*3/uL RBC 4.46 (4.20-5.50) X10*6/uL Hgb 13.1 (12.0-16.0) g/dl Hct 39.1 (37.0-47.0) % MCV 87.7 (80.0-98.0) fL MCH 29.4 (27.0-33.0) pg MCHC 33.5 (31.0-35.0) g/dl RDW 13.2 (11.0-16.0) % Plt Count 180 (160-400) X10*3/uL MPV 10.9 (9.4-12.3) fL Immature Gran % (Auto) (0.0-0.4) % Neut % (Auto) (45-73) % Lymph % (Auto) (20-40) % [place] % (Auto) (2-11) % Eos % (Auto) (0-4) % Baso % (Auto) (0-2) % Lymph # (Auto) (1.2-4.9) X10*3/uL [place] # (Auto) (0.1-1.2) X10*3/uL Eos # (Auto) (0.0-0.4) X10*3/uL Baso # (Auto) (0.0-0.2) X10*3/uL Abs Immat Gran (auto) (0.00-0.03) X10*3/uL Absolute Neuts (auto) (2.0-8.3) x10*3/uL Absolute Nucleated RBC 0.000 (0.0-0.012) X10*3/uL Nucleated RBC % (auto) 0.0 (0.0-0.2) /100WBC PT 10.9 (10.0-13.1) SEC INR 1.0 (0.9-1.1) aPTT Heparin Protocol 29.9 L 165.1 H* D (53-77.9) SEC D-Dimer High Sensitivty NG/ML Sodium (135-145) mmol/L Potassium (3.3-5.1) mmol/L Chloride (96-108) mmol/L Carbon Dioxide (22-29) mmol/L Anion Gap (12-20) BUN (9-16) mg/dL Creatinine (0.5-1.4) mg/dL Estim Creat Clear Calc Estimated GFR Random Glucose (60-115) mg/dL Calcium (8.4-10.2) mg/dL Total Bilirubin (0.0-1.0) mg/dL Direct Bilirubin (0.0-0.5) mg/dL AST (5-31) U/L ALT (0-31) U/L Alkaline Phosphatase (39-117) U/L Troponin I High Sens (<3.5-17.0) ng/L Total Protein (6.5-8.0) g/dL Albumin (3.5-5.0) g/dL Lipase (8-78) U/L Urine Color Urine Appearance Urine pH (5.0-9.0) Ur Specific [place] (1.005-1.025) Urine Protein (Neg-Trace) mg/dL Urine Glucose (UA) (Negative) mg/dL Urine Ketones (Negative) mg/dL Urine Blood (Negative) Urine Nitrite (Negative) Ur Leukocyte Esterase (Negative) Urine RBC (0-2) /HPF Urine WBC (0-5) /HPF Ur Squamous Epith Cells (0-2) /HPF Urine Bacteria (None Seen) Hyaline Casts (0-2) /LPF COVID-19 (PHI) (Negative) COVID-19 Clin Com Critical Care Time Critical Care Time Total Critical Care Time: 60 Attestation: ACS IV heparin/nitro/speaking with machine shop instructor/family Discharge Plan Discharge Clinical Impression: Epigastric pain, Elevated troponin Patient Disposition: [facility] Transfer Details: transfer to [facility] Prescriptions: No Action diclofenac sodium 1 % gel 2 g topical BID PRN (Reason: pain) Qty: 100 2RF Rx Instructions: apply to joints tamsulosin 0.4 mg capsule 0.4 mg PO BEDTIME Qty: 30 0RF gabapentin 600 mg tablet 1 tab PO DAILY tacrolimus 0.1 % ointment 1 applic topical Q OTHER DAY Rx Instructions: apply to affected area bupropion HCl 75 mg tablet 1 tab PO DAILY hydroxyzine HCl 25 mg tablet 1 tab PO DAILY PRN (Reason: anxiety or itching) betamethasone dipropionate 0.05 % ointment 1 appl topical DAILY PRN (Reason: Dry Skin) Rx Instructions: apply to arms, legs, and chest vitamin E 1,000 unit Tablet 2 tab PO DAILY Centravites 50 Plus Tablet 1 tab PO DAILY omega 2-qzx-sfw-fish oil [Fish Oil] 1,000 mg (120 mg-180 mg) Capsule 1 cap PO DAILY escitalopram oxalate 10 mg tablet 10 mg PO DAILY@1300 PRN (Reason: depression) gabapentin 600 mg tablet 1,200 mg PO BEDTIME loratadine 10 mg tablet 10 mg PO DAILY aspirin 81 mg tablet,delayed release (DR/EC) 81 mg PO DAILY lorazepam 0.5 mg tablet 0.5 mg PO DAILY PRN (Reason: Anxiety) zolpidem 5 mg tablet 2.5 mg PO BEDTIME PRN (Reason: Insomnia) amitriptyline 10 mg tablet 10 mg PO BEDTIME fluticasone propionate 50 mcg/actuation spray,suspension 1 spray intranasal DAILY Rx Instructions: spray 1 spray into each nostril triamcinolone acetonide 0.1 % ointment 1 appl topical BID PRN (Reason: Dry Skin) Rx Instructions: apply to chest, arms, and legs ketoconazole 2 % shampoo 1 appl topical MOFR@0900
--- NOTE | 2022-03-31 08:19 | PC.NURSE ---
pt did receive 3 Nitro 0.4 for chest discomfort 5/10, substernal pain VSS
[2022-03-31 08:23] LABS: Hematocrit 39.1 % (37.0-47.0); Hemoglobin 13.1 g/dl (12.0-16.0); Mean Corpuscular HGB Conc 33.5 g/dl (31.0-35.0); Mean Corpuscular Hemoglobin 29.4 pg (27.0-33.0); Mean Corpuscular Volume 87.7 fL (80.0-98.0); Mean Platelet Volume 10.9 fL (9.4-12.3); Platelet Count 180 X10*3/uL (160-400); Red Blood Count 4.46 X10*6/uL (4.20-5.50); Red Cell Distribution Width 13.2 % (11.0-16.0)
[2022-03-31 08:30] LABS: Prothrombin Time 10.9 SEC (10.0-13.1)
[2022-03-31 08:33] LABS: PTT Heparin Drip 29.9 SEC (53-77.9)
[2022-03-31] MEDS: Heparin Sodium,Porcine 5,000 UNIT/ML VIAL 4000 UNIT IVPUSH (09:15)
--- NOTE | 2022-03-31 09:17 | PM.CNCAR ---
History of Present Illness History of Present Illness Date of Service: 03/31/22 Requesting physician: Javed Segovia Consult reason: other (Acute coronary syndrome) Chief complaint: chest pain, vomiting Narrative: I was consulted to see Lambert in cardiology consultation today for symptoms of epigastric discomfort and elevated troponins. She is a 67-year-old male with prior history of acid reflux disease, fibromyalgia, depression without any major cardiovascular risk factors. She was in usual state of health yesterday and in the afternoon she felt mild pressure in a lower retrosternal epigastric area with radiation below her ribcage yesterday. This was very mild discomfort she went shopping with her daughter yesterday around 130 in the afternoon was not feeling well and then came home. Symptoms then might have subsided but she says she had mild sensation all along. She associated this to acid reflux disease and did not seek any attention. She also felt mildly nauseous. Around 10 30 last night she had more severe chest pressure associated with more nausea but she could not bring up any vomitus and at that time the daughter brought her to the emergency room. On presentation to the emergency room initial EKG showed sinus tachycardia with minimal J-point depression with mild ST sagging. There were no dramatic ST segment depression or elevation. Her initial troponin was negative subsequent troponin shows mild rising to the 30s and then into the 50s. EKG repeated this morning shows normalized ST segment with lower heart rate. She did receive 4 baby aspirin as well as 3 sublingual nitroglycerin before my arrival. She says her chest pressure has not resolved but she has mild discomfort in that area. She is not feeling nauseous anymore. Her blood pressures been stable. No arrhythmias have been detected. She said of severe chest pressure showed it was associated with some shortness of breath. She has never had any prior similar symptoms. She has been worked up in the past for different kind of chest discomfort has been told that she had acid reflux disease. Review of Systems Constitutional: Constitutional: Reports no additional constitutional complaints Eyes: Eyes: Reports no additional eye complaints Cardiovascular: Cardiovascular: Denies Abdominal Distension, Reports Epigastric Pain, Denies syncope, Reports lightheadedness, Denies Loss of Consciousness, Denies palpitations and Reports dyspnea Respiratory: Respiratory: Reports no additional respiratory complaints and Reports dyspnea Gastrointestinal: Gastrointestinal: Reports no additional gastrointestinal complaints Genitourinary: Genitourinary: Reports no additional female genitourinary complaints Musculoskeletal: Musculoskeletal: Reports no additional musculoskeletal complaints Integumentary/Breasts: Skin/Breast: Reports system reviewed and no additional complaints, except as docu Neurologic: Reports system reviewed and no additional complaints, except as documented and Denies syncope Psychiatric: Psychiatric: Reports no additional psychiatric complaints Endocrine: Endocrine: Reports no additional endocrine complaints and Denies palpitations Hematologic/Lymphatic: Hematologic/Lymphatic: Reports no additional hematologic/lymphatic complaints Allergic/Immunologic: Allergic/Immunologic: Reports no additional allergic/immunologic complaints PENDING SALE TO [facility] Past Medical History Medical History Anxiety Disc degeneration, lumbar Dyslipidemia Essential hypertension GERD (gastroesophageal reflux disease) Hip pain, left History of cervical cancer Irritable bowel syndrome with constipation Osteopenia Spondylosis of lumbar joint Surgical menopause Weak urinary stream Family History Family History Father Throat cancer Mother No problems noted. Brother No problems noted. Sister No problems noted. Sister No problems noted. Sister No problems noted. Sister Hyperlipidemia HTN (hypertension) Depression Myocardial infarction Daughter No problems noted. Daughter No problems noted. Daughter No problems noted. Daughter No problems noted. Other Mental health disorder Substance use disorder Surgical History Surgical History History of partial hysterectomy Social History Social History Housing: Apartment Alcohol intake: current Alcohol intake frequency: does not drink Alcohol type: wine Patient Tobacco Use Status: Former Tobacco user Quit Date: 12 years ago Smoked in Last 30 Days: No e-Cigarette/Vaping Use: Never Used Use of substances other than those prescribed or required for medical reasons: No Advance Directives: Yes Advance Directives on File: Yes Advance Directives Date on File: 12/21/19 service: No Current occupational status: unemployed Cognitive needs: No Hearing needs: No Vision needs: No Meds Allergies Allergy/AdvReac Type Severity Reaction Status Date / Time No Known Allergies Allergy Verified 03/27/22 12:11 Active Medications: Current Medications Heparin Sodium (Porcine) (Heparin Sodium,Porcine 5,000 Unit/Ml Vial) 2,800 unit 40 unit/kg (2800 unit) IVPUSH PROTOCOL BOLUS PRN; Protocol PRN Reason: 40 unit/kg - Heparin Protocol Heparin Sodium (Porcine) (Heparin Sodium,Porcine 5,000 Unit/Ml Vial) 5,600 unit 80 unit/kg (5600 unit) IVPUSH PROTOCOL BOLUS PRN; Protocol PRN Reason: 80 unit/kg - Heparin Protocol Heparin Sodium/Sodium Chloride (Heparin Sodium,Porcine/1/2ns) 25,000 unit in 250 mls @ 0 mls/hr IVCONT .Q0M CHRISTOPHER; Protocol Nitroglycerin (Nitroglycerin 0.4 Mg Tab.Subl) 0.4 mg SUBLINGUAL [id number] PRN PRN Reason: Chest Pain Last Admin: 03/31/22 07:55 Dose: 0.4 mg Home Medications Medication Instructions Recorded Confirmed Last Taken Type aspirin 81 mg tablet,delayed 81 mg PO DAILY 02/02/20 05/19/21 Unknown History release escitalopram oxalate 10 mg tablet 10 mg PO DAILY 02/02/20 05/19/21 Unknown History gabapentin 600 mg tablet 600 mg PO TID 02/02/20 05/19/21 Unknown History loratadine 10 mg tablet 10 mg PO DAILY 02/02/20 05/19/21 Unknown History lorazepam 0.5 mg tablet 0.0709n15? mg PO DAILY PRN 02/02/20 05/19/21 Unknown History bupropion HCl 150 mg 24 hr tablet, 75 mg PO QAM 07/08/20 05/19/21 Unknown History extended release amitriptyline 10 mg tablet 10 mg PO BEDTIME 03/04/21 05/19/21 Unknown History fluticasone propionate 50 spray intranasal 03/04/21 05/19/21 Unknown History mcg/actuation nasal spray,suspension kiodpbkq-dpmqbwn-keqg-lutein tablet tab PO 03/04/21 05/19/21 Unknown History zolpidem 5 mg tablet mg PO 03/04/21 05/19/21 Unknown History prednisolone acetate 1 % eye 0 drp ophthalmic (eye) 04/10/21 05/19/21 Unknown History drops,suspension ketoconazole 2 % shampoo topical 05/19/21 05/19/21 Unknown History triamcinolone acetonide 0.1 % topical BID PRN 05/19/21 05/19/21 Unknown History topical ointment Physical Exam Vital Signs: Vital Signs: Last Vital Signs Temp 97.2 F 03/31/22 07:09 Pulse 87 03/31/22 08:34 Resp 17 03/31/22 08:34 BP 132/64 03/31/22 08:34 Pulse Ox 98 03/31/22 08:34 O2 Del Method 03/31/22 08:34 BMI result Body Mass Index 25.7 Const: General: cooperative, comfortable, no acute distress, alert, awake and anxious Nutritional Appearance: average body habitus Orientation/consciousness: patient oriented x3 Limitations: no limitations HEENT: Head: Yes normocephalic and Yes atraumatic Neck: Neck: Yes trachea midline and Yes supple Chest: Chest palpation & inspection: normal inspection of the chest Resp: Effort & Inspection: normal respiratory effort Auscultation: clear to auscultation bilaterally Cardio: Jugular venous distension: no JVD Palpation: normal PMI Rate: regular rate Rhythm: regular rhythm Heart sounds: S1 normal heart sound present, S2 normal heart sound present, no click, no gallops, no murmurs and no rubs Skin: General skin exam: no rashes or lesions noted Neuro: General: patient oriented x3 and no focal motor deficits Extrem: General: Yes no clubbing, cyanosis or edema Psych: Appearance: grossly normal Affect: Anxious affect present Objective Labs and Meds 03/31/22 08:17 03/31/22 00:11 Lab results: Laboratory Results - last 24 hr 03/31/22 03/31/22 03/31/22 00:02 00:05 00:11 WBC 7.4 RBC 4.69 Hgb 13.6 Hct 41.5 MCV 88.5 MCH 29.0 MCHC 32.8 RDW 13.2 Plt Count 185 MPV 11.4 Immature Gran % (Auto) 0.1 Neut % (Auto) 70.2 Lymph % (Auto) 16.4 L [place] % (Auto) 6.6 Eos % (Auto) 5.9 H Baso % (Auto) 0.8 Lymph # (Auto) 1.2 [place] # (Auto) 0.5 Eos # (Auto) 0.4 Baso # (Auto) 0.1 Abs Immat Gran (auto) 0.01 Absolute Neuts (auto) 5.2 Absolute Nucleated RBC 0.000 Nucleated RBC % (auto) 0.0 PT INR aPTT Heparin Protocol D-Dimer High Sensitivty Sodium Potassium Chloride Carbon Dioxide Anion Gap BUN Creatinine Estim Creat Clear Calc Estimated GFR Random Glucose Calcium Total Bilirubin Direct Bilirubin AST ALT Alkaline Phosphatase Troponin I High Sens Total Protein Albumin Lipase Urine Color Yellow Urine Appearance Clear Urine pH 6.5 Ur Specific [place] <= 1.005 Urine Protein Negative Urine Glucose (UA) Negative Urine Ketones Negative Urine Blood Negative Urine Nitrite Negative Ur Leukocyte Esterase Small (1+) H Urine RBC 0-2 Urine WBC 0-5 Ur Squamous Epith Cells 0-2 Urine Bacteria None Seen Hyaline Casts 0-2 COVID-19 (PHI) Negative COVID-19 Clin Com See Note 03/31/22 03/31/22 03/31/22 00:11 00:11 00:11 WBC RBC Hgb Hct MCV MCH MCHC RDW Plt Count MPV Immature Gran % (Auto) Neut % (Auto) Lymph % (Auto) [place] % (Auto) Eos % (Auto) Baso % (Auto) Lymph # (Auto) [place] # (Auto) Eos # (Auto) Baso # (Auto) Abs Immat Gran (auto) Absolute Neuts (auto) Absolute Nucleated RBC Nucleated RBC % (auto) PT INR aPTT Heparin Protocol D-Dimer High Sensitivty < 150 Sodium 142 Potassium 4.1 Chloride 104 Carbon Dioxide 27 Anion Gap 15 BUN 14 Creatinine 0.99 Estim Creat Clear Calc 53.0 Estimated GFR 56 Random Glucose 99 Calcium 9.5 Total Bilirubin Direct Bilirubin AST ALT Alkaline Phosphatase Troponin I High Sens 5.7 Total Protein Albumin Lipase Urine Color Urine Appearance Urine pH Ur Specific [place] Urine Protein Urine Glucose (UA) Urine Ketones Urine Blood Urine Nitrite Ur Leukocyte Esterase Urine RBC Urine WBC Ur Squamous Epith Cells Urine Bacteria Hyaline Casts COVID-19 (PHI) COVID-19 Clin Com 03/31/22 03/31/22 03/31/22 00:11 03:39 06:54 WBC RBC Hgb Hct MCV MCH MCHC RDW Plt Count MPV Immature Gran % (Auto) Neut % (Auto) Lymph % (Auto) [place] % (Auto) Eos % (Auto) Baso % (Auto) Lymph # (Auto) [place] # (Auto) Eos # (Auto) Baso # (Auto) Abs Immat Gran (auto) Absolute Neuts (auto) Absolute Nucleated RBC Nucleated RBC % (auto) PT INR aPTT Heparin Protocol D-Dimer High Sensitivty Sodium Potassium Chloride Carbon Dioxide Anion Gap BUN Creatinine Estim Creat Clear Calc Estimated GFR Random Glucose Calcium Total Bilirubin 0.4 Direct Bilirubin 0.2 AST 26 ALT 22 Alkaline Phosphatase 67 Troponin I High Sens 38.5 H D 50.3 H* Total Protein 7.7 Albumin 4.6 Lipase 48 Urine Color Urine Appearance Urine pH Ur Specific [place] Urine Protein Urine Glucose (UA) Urine Ketones Urine Blood Urine Nitrite Ur Leukocyte Esterase Urine RBC Urine WBC Ur Squamous Epith Cells Urine Bacteria Hyaline Casts COVID-19 (PHI) COVID-19 Clin Com 03/31/22 03/31/22 08:17 08:17 WBC 6.0 RBC 4.46 Hgb 13.1 Hct 39.1 MCV 87.7 MCH 29.4 MCHC 33.5 RDW 13.2 Plt Count 180 MPV 10.9 Immature Gran % (Auto) Neut % (Auto) Lymph % (Auto) [place] % (Auto) Eos % (Auto) Baso % (Auto) Lymph # (Auto) [place] # (Auto) Eos # (Auto) Baso # (Auto) Abs Immat Gran (auto) Absolute Neuts (auto) Absolute Nucleated RBC 0.000 Nucleated RBC % (auto) 0.0 PT 10.9 INR 1.0 aPTT Heparin Protocol 29.9 L D-Dimer High Sensitivty Sodium Potassium Chloride Carbon Dioxide Anion Gap BUN Creatinine Estim Creat Clear Calc Estimated GFR Random Glucose Calcium Total Bilirubin Direct Bilirubin AST ALT Alkaline Phosphatase Troponin I High Sens Total Protein Albumin Lipase Urine Color Urine Appearance Urine pH Ur Specific [place] Urine Protein Urine Glucose (UA) Urine Ketones Urine Blood Urine Nitrite Ur Leukocyte Esterase Urine RBC Urine WBC Ur Squamous Epith Cells Urine Bacteria Hyaline Casts COVID-19 (PHI) COVID-19 Clin Com EKG 1. Shows sinus tachycardia with J-point depression with mild ST segment sagging in multiple leads including anterolateral and inferior EKG 2. Shows normal sinus rhythm with normal EKG Imaging Radiologist's impression: Impressions Chest X-Ray 03/31/22 00:35 IMPRESSION: No acute pulmonary disease. Abdomen/Pelvis CT 03/31/22 01:09 IMPRESSION: No acute findings in the abdomen or pelvis. No inflammatory changes. Moderate colonic stool burden. Fleischner guidelines were followed. Assessment and Plan (1) Acute coronary syndrome: Status: Acute patient presents with symptoms concerning as well as biomarker evidence of acute coronary syndrome. Possible etiologies include acute plaque rupture/ erosion and/ or spontaneous coronary artery dissection which is likely in her case as well. The best approach for treatment is to perform cardiac catheterization invasive approach. We discussed the need for cardiac catheterization including risk, benefits, alternatives and 2nd opinion. The daughter was present during the entire visit and they both agreed for the same. Will make arrangements for to be transferred to [facility]. Will start on nitro paste 1/2 inch to the chest wall. Also given metoprolol 25 mg daily and then start on b.i.d. regimen. Continue aspirin, IV heparin. Will also give her high-intensity statin therapy. Thank you for allowing me to partake in her care Time Spent With Patient Time: Total time managing care of this patient today ____ minutes. Procedures Date of Service Date of Service: 03/31/22
[2022-03-31] MEDS: Heparin Sodium,Porcine/1/2NS 25,000 UNIT/250 ML IV.SOLN 8.41 UNIT IVCONT (09:18)
--- NOTE | 2022-03-31 09:33 | MHC.EDTECH ---
@ 6554 CALL RECEIVED FROM [facility] ADMITTING DEPT ASKING FOR A FACE SHEET TO BE FAXED TO [phone]
[2022-03-31] MEDS: Nitroglycerin 2 % Oint 1 GM Packet 0.5 INCH TRANSDERMA (09:34)
[2022-03-31] MEDS: Metoprolol Tartrate 25 MG TABLET PO (09:35)
[2022-03-31] MEDS: Atorvastatin Calcium 80 MG TABLET PO (09:57)
--- NOTE | 2022-03-31 09:58 | PC.NURSE ---
pt medicated per order float nurse
--- NOTE | 2022-03-31 11:09 | PHA.MEDREC ---
Pharmacy Consult ? Medication Reconciliation Pharmacy has completed the medication reconciliation. Patient reports not starting the amoxicillin or famotidine yet.
--- NOTE | 2022-03-31 11:33 | MHC.EDTECH ---
@ 1132AM [facility] PT TX LINE CALLED TO CHECK ON ROOM ASSIGNMENT JO ANSWERS AND SAYS THERE IS NO ROOM ASSIGNMENT YET
--- NOTE | 2022-03-31 11:44 | MHC.EDTECH ---
assisted pt to the commode. Pt returned back to bed. Bed in low, locked position, call farah in reach. Able to make needs known.
--- NOTE | 2022-03-31 15:16 | MHC.EDTECH ---
@ 6493 [facility] PT TX LINE CALLED [phone] TO CHECK ON ROOM ASSIGNMENT JO ANSWERS, STATES NO ROOM ASSIGNMENT YET AND THAT IT WILL BE A WHILE DR SALINAS MADE AWARE VIA [employer]
--- NOTE | 2022-03-31 15:59 | MHC.EDTECH ---
1555 [facility] transfer line calls with bed assignment [id number] #[phone]
[2022-03-31 16:34] LABS: PTT Heparin Drip 165.1 SEC (53-77.9)
--- NOTE | 2022-03-31 16:54 | PC.NURSE ---
Nurse to Nurse report given to Marylu DUENAS [phone]. PTT dose held as 165.1 and RN along with our attending is aware.
== END 2022-03-31 16:59 | disposition short-term general hospital (02) ==
LOC: HO.ED 03-31 09:02 → HO.EDOVER 03-31 14:56 → HO.ED 03-31 16:33
PROVIDERS: Emergency Medicine; Nurse Practitioner Family; Emergency Provider Emergency Medicine; PCP Internal Medicine
DX: R07.89 Other chest pain (principal); R10.13 Epigastric pain; R77.8 Other specified abnormalities of plasma proteins; Z87.891 Personal history of nicotine dependence; Z20.822 Contact with and (suspected) exposure to COVID-19; Z20.828 Contact with and (suspected) exposure to other viral communicable diseases
CPT/HCPCS: 36415; 71045; 74177; 80048; 80076; 81001; 83690; 84484; 85025; 85027; 85379; 85610; 85730; 87086; 87635; 93005; 96365; 96366; 96375; 99285; J1643; J1885; J2405; Q9967

== ENCOUNTER → 2022-04-10 09:13 | Outpatient (BNVA) | payer OTHER, SELFPAY | PROVIDERS: PCP Internal Medicine; Visit Provider Nurse Practitioner Family | DX: N39.0 Urinary tract infection, site not specified (principal); Z79.82 Long term (current) use of aspirin | CPT/HCPCS: 51798; 99212 ==

== ENCOUNTER 2022-05-01 13:02 | Outpatient (REF) | payer OTHER, SELFPAY ==
--- NOTE | ~2022-05-01 | MM_ITS ---
EXAMINATION: MM SCREENING DIGITAL BREAST TOMOSYNTHESIS, BILATERAL CLINICAL INFORMATION: Screening. Asymptomatic. Family history breast cancer, daughter. The lifetime risk of breast cancer based on the Tyrer-Cuzick Model is 4%. COMPARISON: Mammography: 04/18/2021, 03/21/2020, 02/27/2019 TECHNIQUE: Digital breast tomosynthesis is performed in both the craniocaudal and mediolateral oblique views along with computer-aided detection (CAD). Synthesized 2D images are generated from the tomosynthesis. FINDINGS: There are scattered areas of fibroglandular density (ACR BI-RADS breast composition Category b). There are no significant masses, abnormal calcifications, or other abnormalities. There is minor scarring left axilla similar to prior studies. The breast parenchymal pattern is similar to prior exams. No developing density. No significant changes. MM/MM tomosynthesis screening BI IMPRESSION: No mammographic evidence of malignancy. ASSESSMENT: BI-RADS 2: Benign RECOMMENDATION: Routine annual mammography screening. This patient's information was entered into a reminder system with a target due date for their next mammogram.
== END 2022-05-01 13:03 | disposition home or self-care (01) ==
LOC: HO.MAMMO 13:02
PROVIDERS: Visit Provider Internal Medicine
DX: Z12.31 Encounter for screening mammogram for malignant neoplasm of breast (principal)
CPT/HCPCS: 77063; 77067

== ENCOUNTER → 2022-05-07 14:03 | Outpatient (BNVA) | payer OTHER, SELFPAY | PROVIDERS: PCP Internal Medicine; Visit Provider Obstetrics & Gynecology | DX: Z13.89 Encounter for screening for other disorder (principal) ==

== ENCOUNTER 2022-06-12 14:00 | Outpatient (RCR) | payer OTHER, SELFPAY ==
--- NOTE | 2022-04-24 14:56 | MHC.PT.EP ---
[facility] [place] Office [place] Office [place] Office [address] Victor Hugo Leslie [address] [phone] F: [phone] F: [phone] F: [phone] F: [phone] Physical Therapy Plan of Care Date of Evaluation: Date of Surgery: Diagnosis: BILAT KNEE PAIN Assessment: 67 YO FEMALE REF TO PT WITH 2 YR H/O Rt MEDIAL KNEE PAIN, SHE DENIES TRAUMA- OF IMPORTANCE, SHE HAS A H/O LEFT LBP AND HAS RECEIVED INJECTIONS. Pt RESIDES IN A 2 LEVEL HOME- SHE HAS DECR PETE TO PROLONGED STANDING, WALKING, STAIR MANAGEMENT, AND MORE PHYSICALLY DEMANDING ADLs. SHE HAS WEIGHER OPERATOR ASSIST 8 HRS/WK. OBJECTIVELY, (+) PAIN W PALP Rt PES ANSERINE, MILD GENU VALGUS TENDENCY, (+) PELVIC ASYMMETRY CREATING LLI EFFECT, BALANCE DEF W SLS, DECR HIP FLEXIBILITY, AND Rt PATELLAR HYPOMOB (MEDIALLY AND INF). . Pt IS A GOOD PT CANDIDATE ADDRESSING THE ABOVE FINDINGS, PAIN MGMT, AND MAXIMIZING FUNCTIONAL INDEPENDENCE. Frequency and Duration: The patient will be seen 2 x WK x 5 WKS Short Term Goals: *Pt'S Rt MED KNEE PAIN DECR TO 2-05/22 *Pt IMPROVE HIP AND HS FLEXIB *IMPROVE RIGHT PATELLAR MOB AND REDUCE PERIPATELLAR TISSUE TENSION Shelter Goals: *Pt INDEP W HEP *Pt RESUME HER FITNESS WALKING AND REG ADLs W/O Rt KNEE PAIN IMPEDING HER ACTIVITY *Pt DEMON IMPROVED LUMBOPELVIC/ PROX LEs STRENGTH -> REDUCE ASYMM AND LLI INFLUENCE Treatment Plan: Modalities to reduce pain, spasms and effusion. Manual therapy to restore motion and function. Therapeutic exercise to improve strength and flexibility. Neuromuscular re-education for posture and balance. Therapeutic activities to return to functional activities of daily living. Electronically signed by: RICCO KULKARNIPT Please sign and return to therapist. Thank you for your referral.
--- NOTE | 2022-06-16 09:20 | MHC.PT.DC ---
[facility] [place] Office [place] Office [place] Office [address] Victor Hugo Leslie [address] [facility] [phone] F: [phone] F: [phone] F: [phone] F: [phone] Physical Therapy Discharge Report Diagnosis: BILAT KNEE PAIN Date of Surgery: Date of Evaluation: 04/24/22 Date of Discharge: 06/16/22 Treatments to Date: 7 Cancellations to Date: 6 No Shows to Date: 0 Discharge Status: Achieved Goals Improved Function Independent with HEP Patient Elected to Stop Discharge Summary: ALTHOUGH Pt HAS HAD SPORADIC ATTENDANCE TO PT, SHE HAS BEEN COMPLIANT W HER HEP AND IMPROVED BODY MECH AWARENESS EVIDENT WITH IMPROVED BODY MECH AND ACTIVITY PETE. SHE DISPLAYS IMPROVED BALANCE W DYNAMIC BALANCE. Pt FEELS SHE HAS MET HER PT GOALS AND IS READY FOR D/C AT THIS TIME- SHE DID NOT HAVE ANY FURTHER QUESTIONS OR CONCERNS. Electronically signed by: RICCO KULKARNI,PT Please sign and return to therapist. Thank you for your referral.
== END 2022-06-16 09:21 | disposition home or self-care (01) ==
LOC: HO.PT 14:00
PROVIDERS: PCP Internal Medicine; Visit Provider Nurse Practitioner Family
DX: M25.561 Pain in right knee (principal)
CPT/HCPCS: 97035; 97110; 97161; 97530

== ENCOUNTER → 2022-06-22 13:08 | Outpatient (BNVA) | payer OTHER, SELFPAY | PROVIDERS: PCP Internal Medicine; Visit Provider Physician Assistant | DX: K58.1 Irritable bowel syndrome with constipation (principal); Z80.0 Family history of malignant neoplasm of digestive organs | CPT/HCPCS: 99202 ==

== ENCOUNTER 2022-07-30 11:41 | Outpatient (REF) | payer OTHER, SELFPAY ==
[2022-07-31 11:52] LABS: Appearance Urine Clear; Color Urine Yellow; Glucose Urine UA Negative (Negative); Leukocyte Esterase Urine Small (1+) (Negative); Nitrite Urine Negative (Negative); PH 6.5 (5.0-9.0); Specific Gravity - Urine <= 1.005 (1.005-1.025); UMIC TRIGGER UACC YES; Urine Blood Negative (Negative); Urine Ketones Negative (Negative); Urine Protein Negative (Neg-Trace)
[2022-07-31 12:02] LABS: Bacteria Urine None Seen (None Seen); Hyaline Casts Urine 0-2 /LPF (0-2); RBC Urine 0-2 /HPF (0-2); Squamous Epithelial Cell Urine 0-2 /HPF (0-2); UACC Culture Trigger YES; WBC Urine 0-5 /HPF (0-5)
== END 2022-07-30 11:42 | disposition home or self-care (01) ==
LOC: HO.LNP 11:41
PROVIDERS: Visit Provider Physician Assistant Medical
DX: R30.0 Dysuria (principal)
CPT/HCPCS: 81001; 87086

== ENCOUNTER 2022-08-14 10:59 | Outpatient (REF) | payer OTHER, SELFPAY ==
[2022-08-14 14:39] LABS: Alanine Aminotransferase 23 U/L (0-31); Anion Gap 11 (12-20); Aspartate Amino Transferase 23 U/L (5-31); Blood Urea Nitrogen 11 mg/dL (9-16); Calcium 9.7 mg/dL (8.4-10.2); Carbon Dioxide 27 mmol/L (22-29); Chloride 106 mmol/L (96-108); Cholesterol 200 mg/dL; Estimated Glomerular Filt Rate > 60; Glucose Fasting 82 mg/dL (60-99); HDL Cholesterol 71 mg/dL; LDL Cholesterol Calculated 104 mg/dl; Sodium 140 mmol/L (135-145); Triglycerides 126 mg/dL
[2022-08-14 14:58] LABS: TSH reflex Free T4 1.34 uIU/mL (0.32-4.0); Vitamin D 25-OH Total 38.6 ng/mL (>30)
== END 2022-08-14 11:00 | disposition home or self-care (01) ==
LOC: HO.HMGCLDS 10:59
PROVIDERS: PCP Internal Medicine; Visit Provider Internal Medicine
DX: Z00.01 Encounter for general adult medical examination with abnormal findings (principal); E78.5 Hyperlipidemia, unspecified; I10 Essential (primary) hypertension; K58.1 Irritable bowel syndrome with constipation; M85.80 Other specified disorders of bone density and structure, unspecified site; N95.1 Menopausal and female climacteric states; Z83.49 Family history of other endocrine, nutritional and metabolic diseases
CPT/HCPCS: 36415; 80048; 80061; 82306; 84443; 84450; 84460

== ENCOUNTER → 2022-09-02 10:48 | Outpatient (BNVA) | payer OTHER, SELFPAY | PROVIDERS: PCP Internal Medicine; Visit Provider Anesthesiology | DX: M47.816 Spondylosis without myelopathy or radiculopathy, lumbar region (principal); M51.36 Other intervertebral disc degeneration, lumbar region | CPT/HCPCS: 99212 ==

== ENCOUNTER 2022-09-25 10:26 | Day surgery (SDC) | payer OTHER, SELFPAY ==
[2022-09-25 11:39] VITALS: BMI 24.1
[2022-09-25 12:12] VITALS: BP 137/76; PULSE 70; RESP 18; TEMP 36.7; O2SAT 98
--- NOTE | 2022-09-25 12:18 | HO.ANESPROP2 ---
HPI - Anesthesia Eval Consult details Narrative: egd PMFSH Active Problems Active Problems: All Active Problems (Updated 09/24/22 @ 15:27 by Callie Sosa RN) Recurrent UTI (urinary tract infection) (Acute) Left lumbar radiculopathy (Acute) Sacroiliac joint pain (Acute) Varicosities of leg (Acute) ALONZO (obstructive sleep apnea) (Acute) PAD (peripheral artery disease) (Acute) Primary osteoarthritis of both hands (Acute) Skin lesion (Acute) Dry cough (Acute) Acute viral syndrome (Acute) Menopausal state (Acute) 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 (Acute) Lateral epicondylitis of left elbow (Acute) Acute coronary syndrome (Acute) Colon cancer screening (Acute) Family history of malignant neoplasm of colon in relative diagnosed when younger than 50 years of age (Acute) GERD (gastroesophageal reflux disease) (Acute) Disc degeneration, lumbar (Acute) Spondylosis of lumbar joint (Acute) History of cervical cancer (Acute) Irritable bowel syndrome with constipation (Acute) Surgical menopause (Acute) Osteopenia (Acute) Essential hypertension (Acute) Dyslipidemia (Acute) Anxiety (Acute) Past Medical History Medical History (Updated 09/24/22 @ 15:27 by Callie oSsa RN) Anxiety Arthritis Bipolar 1 disorder Disc degeneration, lumbar Diverticulitis Dyslipidemia Essential hypertension GERD (gastroesophageal reflux disease) Hip pain, left History of cervical cancer Irritable bowel syndrome with constipation Neuropathy Osteopenia Spondylosis of lumbar joint Surgical menopause Weak urinary stream Family History Family History Father Throat cancer Mother No problems noted. Brother No problems noted. Sister No problems noted. Sister No problems noted. Sister No problems noted. Sister Hyperlipidemia HTN (hypertension) Depression Myocardial infarction Daughter No problems noted. Daughter No problems noted. Daughter No problems noted. Daughter No problems noted. Other Mental health disorder Substance use disorder Family history of problems with anesthesia: No Surgical History Surgical History (Updated 09/25/22 @ 12:13 by Kaley Carrillo RN) History of partial hysterectomy Hx of colonoscopy Hx of esophagogastroduodenoscopy History of Problems with Anesthesia: No Social History Social History Housing: Apartment Alcohol intake: current Alcohol intake frequency: does not drink Alcohol type: wine Patient Tobacco Use Status: Former Tobacco user Quit Date: 12 years ago e-Cigarette/Vaping Use: Never Used Are you DNR?: No Advance Directives: No Advance Directives Information Provided: Yes Advance Directives Date on File: 12/21/19 Nutrition Risks: No Nutritional Risk service: No Current occupational status: unemployed Cognitive needs: No Hearing needs: No Vision needs: No Meds Allergies Allergy/AdvReac Type Severity Reaction Status Date / Time No Known Allergies Allergy Verified 09/25/22 12:13 Active Medications: Current Medications Albuterol Sulfate (Albuterol Sulfate (0.083%) 2.5 Mg/3 Ml Vial.Neb) 2.5 mg INHALE ONCE PRN PRN Reason: Shortness of Breath/Wheezing Lactated Ringer's (Lr) 1,000 mls @ 100 mls/hr IVCONT .Q10H [facility] Home Medications Medication Instructions Recorded Confirmed Last Taken Type escitalopram oxalate 10 mg tablet 10 mg PO DAILY@1300 PRN depression 02/02/20 06/22/22 Unknown History lorazepam 0.5 mg tablet 0.5 mg PO DAILY PRN Anxiety 02/02/20 09/25/22 09/25/22 History zolpidem 5 mg tablet 2.5 mg PO BEDTIME PRN Insomnia 03/04/21 06/22/22 Unknown History ketoconazole 2 % shampoo 1 appl topical MOFR@0900 05/19/21 06/22/22 03/29/22 History triamcinolone acetonide 0.1 % 1 appl topical BID PRN Dry Skin 05/19/21 06/22/22 Unknown History topical ointment bupropion HCl 75 mg tablet 1 tab PO DAILY 03/31/22 06/22/22 03/31/22 09:00 History gabapentin 600 mg tablet 1 tab PO DAILY 03/31/22 06/22/22 03/31/22 09:00 History geriatric ufjxtrxy-pnrb-rnta 1 tab PO DAILY 03/31/22 06/22/22 03/31/22 09:00 History (Centravites 50 Plus tablet) omega 4-ibb-iuh-fish oil 1,000 mg 1 cap PO DAILY 03/31/22 06/22/22 03/31/22 09:00 History (120 mg-180 mg) capsule (Fish Oil) tacrolimus 0.1 % topical ointment 1 applic topical Q OTHER DAY 03/31/22 06/22/22 03/30/22 History metronidazole 0.75 % topical cream 1 appl topical DAILY 06/22/22 06/22/22 Unknown History Levbid 09/24/22 Unknown History Vitamin D (with calcium) 09/24/22 09/24/22 Unknown History amitriptyline 09/24/22 Unknown History fluticasone furoate 09/24/22 Unknown History fluticasone propionate 09/24/22 Unknown History hydroxyzine HCl 09/24/22 Unknown History ibuprofen 09/24/22 Unknown History melatonin 09/24/22 Unknown History pantoprazole 09/24/22 Unknown History tizanidine 09/24/22 Unknown History Exam Exam Date and Time: September 25, 2022 121 Height,Weight and Vital Signs: Height 5 ft 5.5 in Weight 66.678 kg Last Vital Signs Temp 98.1 F 09/25/22 12:12 Pulse 70 09/25/22 12:12 Resp 18 09/25/22 12:12 BP 137/76 09/25/22 12:12 Pulse Ox 98 09/25/22 12:12 O2 Del Method Room Air 09/25/22 12:12 Airway Mallampati Class: II TM Dist: >3cm Neck ROM: Limited Heart: rrr Lungs: cta Assessment and Plan Assessment Anesthesia Assessment: Anesthesia Plan Discussed and Chart Reviewed Final Anesthetic Review Family History of Problems with Anesthesia: No History of Problems with Anesthesia: No NPO: Yes ASA Class: III Final Preanesthetic Review: No Changes in Pt Med Stat, Meds/Allgs Chart Reviewed, Consent Obtained/Reviewed and Anes Risks/Benef Reviewed Patient Risk: Intermediate Procedure Risk: Intermediate Anesthetic Plan Anesthetic Plan: MAC: Disposition: Standard PACU
--- NOTE | 2022-09-25 12:51 | MHC.SHP ---
Pre-Procedural Eval Section A Date of Service: 09/25/22 The patient is an INPATIENT: No Changes since office visit: No Cold of Flu in the past 2 weeks, No New Medical Problems, No Changes in Medication and No Patient answered all questions The History & Physical has been completed within 30 days and I have reviewed it.: Yes Section B Chief Complaint: Other dysphagia,gerd Allergies: Allergies Allergy/AdvReac Type Severity Reaction Status Date / Time No Known Allergies Allergy Verified 09/25/22 12:13 Plan I have reviewed the history and physical and performed a pertinent physical examination on my patient. No changes have occurred unless specified. Time Spent With Patient Time: Total time managing care of this patient today ____ minutes.
--- NOTE | 2022-09-25 13:06 | PM.OP ---
Brief Operative Note Date of Service: 09/25/22 Pre-op diagnosis: dysphagia gerd Post-op diagnosis: same Procedure: egd Surgeon: Alban Lopez Anesthesia: MAC Was an Child Care Lead Teacher used for this Procedure?: No Estimated blood loss (mL): 2 Pathology: other Condition: stable Disposition: PACU
[2022-09-25 13:07] VITALS: BP 116/58; PULSE 82; RESP 16; TEMP 36.6; O2SAT 98
[2022-09-25 13:22] VITALS: BP 131/73; PULSE 70; RESP 16; TEMP 36.6; O2SAT 98
--- NOTE | 2022-09-25 22:53 | OP_ITS ---
DATE OF SERVICE: 09/25/2022 SURGEON: Alban Lopez MD INDICATIONS: Dysphagia and gastroesophageal reflux disease. PREOPERATIVE DIAGNOSIS: POSTOPERATIVE DIAGNOSIS: PROCEDURE PERFORMED: ESTIMATED BLOOD LOSS: COMPLICATIONS: ANESTHESIA: Monitored anesthesia care. ASSISTANTS: SPECIMENS: PROCEDURE: Upper endoscopy with biopsy. DESCRIPTION OF PROCEDURE: A history and physical was performed. The risks and benefits of the procedure were explained to the patient. Informed consent was obtained. The patient was placed in the left lateral decubitus position. The Olympus video gastroscope was introduced into the esophagus, stomach, and duodenum. Examination was performed. The scope was removed. She tolerated the procedure well and was returned to the recovery area in stable condition. FINDINGS: Esophagus: The esophagus was normal. There was no stricture. The EG junction was slightly irregular and this was biopsied. Stomach: The stomach showed focal areas of erythema in the body and fundus consistent with gastritis. Biopsies were obtained from the antrum. Duodenum: The bulb and 2nd portion were normal. Biopsies were obtained from the 2nd portion. IMPRESSION: Gastritis. RECOMMENDATION: Follow up the biopsy results. MD FRANSISCO Hernandez/ROYCE / [id number]
== END 2022-09-25 14:45 | disposition home or self-care (01) ==
PROVIDERS: PCP Internal Medicine; Visit Provider Internal Medicine Gastroenterology
PROC: 0DJ08ZZ Inspection of Upper Intestinal Tract, Via Natural or Artificial Opening Endoscopic (ICD-10-PCS; CPT 43235; principal; 2022-09-25 12:00)
DX: K29.70 Gastritis, unspecified, without bleeding (principal); R13.10 Dysphagia, unspecified; K21.9 Gastro-esophageal reflux disease without esophagitis; I10 Essential (primary) hypertension; E78.5 Hyperlipidemia, unspecified; I73.9 Peripheral vascular disease, unspecified; Z87.891 Personal history of nicotine dependence
CPT/HCPCS: 43239; 88305; 88342

== ENCOUNTER 2022-10-08 13:35 | Outpatient (REF) | payer OTHER, SELFPAY | END 2022-10-08 13:36 | disposition home or self-care (01) | LOC: HO.LNP 13:35 | PROVIDERS: Visit Provider Nurse Practitioner Family | DX: N39.0 Urinary tract infection, site not specified (principal); R39.9 Unspecified symptoms and signs involving the genitourinary system; R32 Unspecified urinary incontinence; Z79.899 Other long term (current) drug therapy | CPT/HCPCS: 51798; 87086; 99212 ==

== ENCOUNTER 2022-10-08 13:35 | Outpatient (AMB) | payer OTHER, SELFPAY ==
--- NOTE | 2022-10-08 13:37 | MHC.OFFVIS ---
Intake Intake Visit Reasons: 6m follow up/PVR Intake Note: Patient presents for follow up recurrent uti Urology Medication: tamsulosin Blood Thinner: aspirin PVR: 0ml's Independent Freight Agent Required: No Accompanied by: Self / Same As Patient Allergies No Known Allergies Allergy (Verified 10/08/22 20:42) Medication List - Last Reconciled 10/08/22 by SARAH Warren-BC [amitriptyline ] bupropion HCl 1 tab PO DAILY diclofenac sodium 1% 2 grams topical BID PRN docusate sodium (Colace) 200 mg (2 x 100 mg) PO BEDTIME escitalopram oxalate 10 mg PO DAILY@1300 PRN estradiol 0.01%(0.1mg/gram) vaginally 3 times a week; pea sized amount to urethra 3 times a week 30 days [fluticasone furoate ] [fluticasone propionate ] gabapentin 1 tab PO DAILY geriatric yttixshj-owab-sfkv (Centravites 50 Plus tablet) 1 tab PO DAILY [hydroxyzine HCl ] [ibuprofen ] ketoconazole 2% 1 appl topical MOFR@0900 [Levbid ] lorazepam 0.5 mg PO DAILY PRN [melatonin ] methylcellulose (laxative) (Citrucel) 500 mg PO TID metronidazole 0.75% 1 appl topical DAILY nitrofurantoin macrocrystal 100 mg PO BID 10 days omega 8-gxr-eki-fish oil 1,000 mg (120 mg-180 mg) (Fish Oil) 1 cap PO DAILY omeprazole 20 mg PO DAILY PRN [pantoprazole ] tacrolimus 0.1% 1 applic topical Q OTHER DAY tamsulosin 0.4 mg PO BEDTIME 90 days [tizanidine ] triamcinolone acetonide 0.1% 1 appl topical BID PRN [Vitamin D (with calcium) ] zolpidem 2.5 mg PO BEDTIME PRN HPI HPI Comments History of Present Illness Details Jessa is a pleasant 67-year-old female patient of Dr. Soni. She has a past medical history of anxiety, arthritis, bipolar, degenerative disc disease, diverticulitis, dyslipidemia, hypertension, GERD, history of cervical cancer, irritable bowel syndrome with constipation, neuropathy, osteopenia. She presents to the office today for follow-up regarding her recurrent urinary tract infections. When asked patient reports noting over the last week she has been having lower abdominal pressure and urinary frequency. She otherwise denies incontinence, nocturia, hematuria, dysuria, foul smelling urine, changes to urinary stream, flank pain, fever, and or chills. She is happy with her current voiding parameters. In office urinalysis results reviewed with the patient today 3+ leukocytes otherwise negative nitrates. Discussed sending for urine culture for further assessment evaluation. She reports to be following up with PCP regarding right ankle pain and swelling. She otherwise offers no issues or concerns at this time. Discussed obtaining retroperitoneal ultrasound for further assessment and evaluation. Discuss trial of Estrace cream. Discussed at length potential causes for recurrent urinary tract infections. Patient does report having issues with her bowels and follows with GI. She discusses having had a recent endoscopy. PVR 0ml's. [facility] Medical History Anxiety Arthritis Bipolar 1 disorder Disc degeneration, lumbar Diverticulitis Dyslipidemia Essential hypertension GERD (gastroesophageal reflux disease) Hip pain, left History of cervical cancer Irritable bowel syndrome with constipation Neuropathy Osteopenia Spondylosis of lumbar joint Surgical menopause Weak urinary stream Surgical History History of partial hysterectomy Hx of colonoscopy Hx of esophagogastroduodenoscopy Family History Father Throat cancer Mother No problems noted. Brother No problems noted. Sister No problems noted. Sister No problems noted. Sister No problems noted. Sister Hyperlipidemia HTN (hypertension) Depression Myocardial infarction Daughter No problems noted. Daughter No problems noted. Daughter No problems noted. Daughter No problems noted. Other Mental health disorder Substance use disorder Social History Housing: Apartment Alcohol intake: current Alcohol intake frequency: does not drink Alcohol type: wine Patient Tobacco Use Status: Former Tobacco user Quit Date: 12 years ago e-Cigarette/Vaping Use: Never Used Advance Directives Date on File: 12/21/19 service: No Current occupational status: unemployed Cognitive needs: No Hearing needs: No Vision needs: No Review of Systems Const Reports as per HPI Eyes Reports no additional complaints ENT Reports no additional complaints Card Reports as per HPI Resp Reports no additional complaints GI Reports as per HPI Reports as per HPI Musc Reports as per HPI Neuro Reports as per HPI Psych Reports as per HPI Albino/Lymph Reports no additional complaints Aller/Immun Reports no additional complaints Physical Exam Const General: cooperative, healthy appearing, comfortable, no acute distress, well developed, alert and awake Nutritional Appearance: average body habitus Orientation/consciousness: patient oriented x3 Limitations: no limitations HEENT Head: Yes normal to inspection, Yes normocephalic and Yes atraumatic Ears: hearing grossly normal bilaterally Eyes General: appearance normal, both eyes and all related structures Neck Neck: Yes normal visual inspection and Yes trachea midline Chest Chest palpation & inspection: normal inspection of the chest Resp Effort & Inspection: normal respiratory effort and able to speak in complete sentences Cardio Rate: regular rate GI Inspection: Yes normal to inspection General: Yes no CVA tenderness Back/Spine/Pelvis Back: no CVA tenderness Skin General skin exam: no rashes or lesions noted Neuro General: patient oriented x3 Extrem General: Yes normal to inspection Psych Appearance: grossly normal and well kempt Mental Status: mental status grossly normal Speech and movement: Normal speech and movement present and Clear speech present Affect: normal affect Attitude: cooperative Thought process: Normal thought process present Thought content: Normal thought content present Insight: Fair insight present (Psych) Judgement: Fair judgement present (Psych) Office Procedures Post Void Residual Post Residual Void Post Void Residual (PVR): 0 [id number] Void Residual by ultrasound Results AMB Urinalysis, Automated UA Leukoctes 500 Alexander/uL Last Edit by Ulthera on 10/08/22 14:08 UA Nitrite Negative Last Edit by Ulthera on 10/08/22 14:08 UA Urobilinogen 0.2 mg/dL Last Edit by Ulthera on 10/08/22 14:08 UA Protein 15 mg/dL Last Edit by Ulthera on 10/08/22 14:08 UA pH 6.5 Last Edit by Ulthera on 10/08/22 14:08 UA Blood 0 Sivakumar/uL Last Edit by Ulthera on 10/08/22 14:08 UA Specific Mcalister 1.015 Last Edit by Ulthera on 10/08/22 14:08 UA Ketone Last Edit by Ulthera on 10/08/22 14:08 UA Bilirubin 0 mg/dL Last Edit by Ulthera on 10/08/22 14:08 UA Glucose 0 mg/dL Last Edit by Diane Villa on 10/08/22 14:08 Results Reviewed Results Reviewed: Laboratory Last Values Urine pH (Auto) 6.5 10/08/22 13:42 Specific Mcalister (Auto) 1.015 10/08/22 13:42 Urine Protein (Auto) 15 mg/dL 10/08/22 13:42 Glucose (UA)(Auto) 0 mg/dL 10/08/22 13:42 Urine Blood (Auto) 0 Sivakumar/uL 10/08/22 13:42 Urine Nitrite (Auto) Negative 10/08/22 13:42 Urine Bilirubin (Auto) 0 mg/dL 10/08/22 13:42 Urine Urobilinogen (Auto) 0.2 mg/dL 10/08/22 13:42 Leukocyte Esterase (Auto) 500 Alexander/uL 10/08/22 13:42 Assessment & Plan Assessment & Plan (1) Lower urinary tract symptoms: Code(s): R39.9 - Unspecified symptoms and signs involving the genitourinary system (2) Recurrent UTI (urinary tract infection): Code(s): N39.0 - Urinary tract infection, site not specified Plan In office urinalysis results reviewed with the patient today; will send for urine culture PVR 0 mL Will obtain retroperitoneal ultrasound for further assessment evaluation. Discussed at length potential causes for recurrent urinary tract infections. Start Macrobid as discussed and prescribed. Start Estrace cream as discussed and prescribed. Discussed UTI prevention with D mannose supplement, vitamin-C, increasing fluid intake, behavioral therapy with timed voiding, perineal hygiene and postcoital voiding, and management of constipation with stool softeners and increased fiber intake. Continue Flomax as prescribed Follow-up in 1-2 months with imaging to be completed prior; or sooner with any issues, concerns, and or questions. Orders: Orders US retroperitoneal comp Today R39.9 - Unspecified symptoms and signs involving the genitourinary system Urine Culture Today N39.0 - Urinary tract infection, site not specified AMB Urinalysis Automated Today Z13.9 - Encounter for screening, unspecified AMB Post Void Residual by ultrasound Today N39.0 - Urinary tract infection, site not specified Medications: New nitrofurantoin macrocrystal must administer with a meal/food 100 mg PO BID 10 days 20 caps 0RF N39.0 - Urinary tract infection, site not specified estradiol 0.01%(0.1mg/gram) vaginally 3 times a week; pea sized amount to urethra 3 times a week 30 days 42.5 grams 0RF R32 - Unspecified urinary incontinence Patient Instructions: The patient had an opportunity to ask questions regarding the treatment plan. All questions were answered. Physical exam, labs, and imaging were discussed and reviewed in detail. As well as risks, benefits, and discussion of treatment choices. No major barriers to understanding were identified. The patient expressed understanding and agreement with the above treatment plan. The patient was made aware they should contact our office by phone for worsening of their current condition, the appearance of new symptoms, or with any questions or concerns. Compliance is encouraged with any medications and follow up testing that is ordered. It is a privilege to be allowed the opportunity to participate in? your urological care.? Again, if you have any questions or concerns If you have any questions or concerns please do not hesitate to contact me. The office is [phone]. This note is constructed using voice recognition software. While every effort has been made to ensure accuracy toll service observer errors may have been included. Yours sincerely, JASON Warren Coding Level of Care Code Est Pt Level 4 (74983) Diagnoses Lower urinary tract symptoms R39.9 Recurrent UTI (urinary tract infection) N39.0 CPT Codes Post Residual Void - PVR CPT Code: 36573-[id number] Void Residual by ultrasound ([id number])
== END 2022-10-08 14:19 | disposition home or self-care (01) ==
PROVIDERS: Visit Provider Nurse Practitioner Family
DX: R39.9 Unspecified symptoms and signs involving the genitourinary system (principal); N39.0 Urinary tract infection, site not specified
CPT/HCPCS: 99214

== ENCOUNTER 2022-10-19 14:25 | Outpatient (REF) | payer OTHER, SELFPAY ==
--- NOTE | ~2022-10-19 | US_ITS ---
EXAMINATION: US RETROPERITONEAL COMPLETE (RENAL) CLINICAL INFORMATION: Lower urinary tract infection symptoms. COMPARISON: Previous CT of the abdomen and pelvis March 2022 and abdominal ultrasound April 2021 TECHNIQUE: Real-time imaging of the kidneys and bladder. FINDINGS: RIGHT KIDNEY: 10 4 x 6 cm (SAG x AP x TRV). The kidney is normal in size, contour, and echogenicity. Renal cortical thickness is normal. No calculi or focal parenchymal lesions. No hydronephrosis. LEFT KIDNEY: 11.7 x 4 x 4 cm (SAG x AP x TRV). The kidney is normal in size, contour, and echogenicity. Renal cortical thickness is normal. No calculi. Probable 1 x 8 x 9 mm peripelvic cyst in the upper pole. No imaging follow-up recommended. No hydronephrosis. BLADDER: Well distended. Bladder wall upper normal in thickness measuring 4 mm. No stone or mass.. Bilateral ureteral jets are demonstrated. Prevoid bladder volume is 391 mL. Postvoid bladder volume is 150 mL. US/US retroperitoneal comp IMPRESSION: 150 mL post void bladder residual..
== END 2022-10-19 14:26 | disposition home or self-care (01) ==
LOC: HO.US 14:25
PROVIDERS: PCP Internal Medicine; Visit Provider Nurse Practitioner Family
DX: R39.9 Unspecified symptoms and signs involving the genitourinary system (principal)
CPT/HCPCS: 76770

== ENCOUNTER 2022-11-11 13:21 | Day surgery (SDC) | payer OTHER, SELFPAY ==
--- NOTE | 2022-11-09 13:59 | HO.ANESPROP2 ---
Documented by User: Melina Edwards NP 11/10/22 09:06 HPI - Anesthesia Eval Consult details Narrative: 67yo F for Upper Endoscopy s/p same 09/2022 with MAC (bx showed GI metaplasia) (03/2022 [facility] ED with CP. [facility] to [facility] for cath. No obstructive CAD and NSTEMI ruled out.) [facility] Active Problems Active Problems: All Active Problems (Updated 10/08/22 @ 14:05 by SARAH Warren-) Lower urinary tract symptoms (Acute) Recurrent UTI (urinary tract infection) (Acute) Left lumbar radiculopathy (Acute) Sacroiliac joint pain (Acute) Varicosities of leg (Acute) ALONZO (obstructive sleep apnea) (Acute) PAD (peripheral artery disease) (Acute) Primary osteoarthritis of both hands (Acute) Skin lesion (Acute) Dry cough (Acute) Acute viral syndrome (Acute) Menopausal state (Acute) 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 (Acute) Lateral epicondylitis of left elbow (Acute) Acute coronary syndrome (Acute) Colon cancer screening (Acute) Family history of malignant neoplasm of colon in relative diagnosed when younger than 50 years of age (Acute) GERD (gastroesophageal reflux disease) (Acute) Disc degeneration, lumbar (Acute) Spondylosis of lumbar joint (Acute) History of cervical cancer (Acute) Irritable bowel syndrome with constipation (Acute) Surgical menopause (Acute) Osteopenia (Acute) Essential hypertension (Acute) Dyslipidemia (Acute) Anxiety (Acute) Past Medical History Medical History (Updated 10/08/22 @ 14:05 by SARAH Warren-FRANSISCO) Anxiety Arthritis Bipolar 1 disorder Disc degeneration, lumbar Diverticulitis Dyslipidemia Essential hypertension GERD (gastroesophageal reflux disease) Hip pain, left History of cervical cancer Irritable bowel syndrome with constipation Neuropathy Osteopenia Spondylosis of lumbar joint Surgical menopause Weak urinary stream Family History Family History Father Throat cancer Mother No problems noted. Brother No problems noted. Sister No problems noted. Sister No problems noted. Sister No problems noted. Sister Hyperlipidemia HTN (hypertension) Depression Myocardial infarction Daughter No problems noted. Daughter No problems noted. Daughter No problems noted. Daughter No problems noted. Other Mental health disorder Substance use disorder Family history of problems with anesthesia: No Surgical History Surgical History (Updated 11/10/22 @ 09:07 by Rosina Collins) History of cardiac cath History of partial hysterectomy Hx of colonoscopy Hx of esophagogastroduodenoscopy History of Problems with Anesthesia: No Social History Social History Housing: Apartment Alcohol intake: current Alcohol intake frequency: does not drink Alcohol type: wine Patient Tobacco Use Status: Former Tobacco user Quit Date: 12 years ago e-Cigarette/Vaping Use: Never Used Advance Directives Date on File: 12/21/19 service: No Current occupational status: unemployed Cognitive needs: No Hearing needs: No Vision needs: No Meds Allergies Allergy/AdvReac Type Severity Reaction Status Date / Time No Known Allergies Allergy Verified 10/08/22 20:42 Home Medications Medication Instructions Recorded Confirmed Last Taken Type escitalopram oxalate 10 mg tablet 10 mg PO DAILY@1300 PRN depression 02/02/20 06/22/22 Unknown History lorazepam 0.5 mg tablet 0.5 mg PO DAILY PRN Anxiety 02/02/20 09/25/22 09/25/22 History zolpidem 5 mg tablet 2.5 mg PO BEDTIME PRN Insomnia 03/04/21 06/22/22 Unknown History ketoconazole 2 % shampoo 1 appl topical MOFR@0900 05/19/21 06/22/22 03/29/22 History triamcinolone acetonide 0.1 % 1 appl topical BID PRN Dry Skin 05/19/21 06/22/22 Unknown History topical ointment bupropion HCl 75 mg tablet 1 tab PO DAILY 03/31/22 06/22/22 03/31/22 09:00 History gabapentin 600 mg tablet 1 tab PO DAILY 03/31/22 06/22/22 03/31/22 09:00 History geriatric stesaenb-ajef-troa 1 tab PO DAILY 03/31/22 06/22/22 03/31/22 09:00 History (Centravites 50 Plus tablet) omega 8-bsx-gqt-fish oil 1,000 mg 1 cap PO DAILY 03/31/22 06/22/22 03/31/22 09:00 History (120 mg-180 mg) capsule (Fish Oil) tacrolimus 0.1 % topical ointment 1 applic topical Q OTHER DAY 03/31/22 06/22/22 03/30/22 History metronidazole 0.75 % topical cream 1 appl topical DAILY 06/22/22 06/22/22 Unknown History Levbid 09/24/22 Unknown History Vitamin D (with calcium) 09/24/22 09/24/22 Unknown History amitriptyline 09/24/22 Unknown History fluticasone furoate 09/24/22 Unknown History fluticasone propionate 09/24/22 Unknown History hydroxyzine HCl 09/24/22 Unknown History ibuprofen 09/24/22 Unknown History melatonin 09/24/22 Unknown History pantoprazole 09/24/22 Unknown History tizanidine 09/24/22 Unknown History Exam Exam Date and Time: November 09, 2022 1359 Pertinent Lab Results Pertinent Lab Results: Laboratory Tests 03/31/22 08/14/22 08:17 11:09 WBC 6.0 Hgb 13.1 Hct 39.1 Plt Count 180 Sodium 140 Potassium 4.0 Chloride 106 Carbon Dioxide 27 BUN 11 Creatinine 0.81 Narrative Narrative: EKG 03/2022 Vent. Rate : 083 BPM ? ? Atrial Rate : 083 BPM ?? P-R Int : 154 ms? QRS Dur : 082 ms ? ? QT Int : 380 ms ? ? ? P-R-T Axes : 036 016 027 degrees ?? QTc Int : 446 ms ? Normal sinus rhythm Normal ECG When compared with ECG of 30-MAR-2022 23:53, ST no longer depressed in Lateral leads Assessment and Plan Assessment Anesthesia Assessment: Chart Reviewed Final Anesthetic Review Family History of Problems with Anesthesia: No History of Problems with Anesthesia: No Documented by User: Darrel Flores MD 11/11/22 13:13 [facility] Past Medical History Medical History (Updated 10/08/22 @ 14:05 by SARAH Warren-FRANSISCO) Anxiety Arthritis Bipolar 1 disorder Disc degeneration, lumbar Diverticulitis Dyslipidemia Essential hypertension GERD (gastroesophageal reflux disease) Hip pain, left History of cervical cancer Irritable bowel syndrome with constipation Neuropathy Osteopenia Spondylosis of lumbar joint Surgical menopause Weak urinary stream Family History Family History Father Throat cancer Mother No problems noted. Brother No problems noted. Sister No problems noted. Sister No problems noted. Sister No problems noted. Sister Hyperlipidemia HTN (hypertension) Depression Myocardial infarction Daughter No problems noted. Daughter No problems noted. Daughter No problems noted. Daughter No problems noted. Other Mental health disorder Substance use disorder Surgical History Surgical History (Updated 11/10/22 @ 09:07 by Rosina Collins) History of cardiac cath History of partial hysterectomy Hx of colonoscopy Hx of esophagogastroduodenoscopy Social History Social History Housing: Apartment Alcohol intake: current Alcohol intake frequency: does not drink Alcohol type: wine Patient Tobacco Use Status: Former Tobacco user Quit Date: 12 years ago e-Cigarette/Vaping Use: Never Used Advance Directives Date on File: 12/21/19 service: No Current occupational status: unemployed Cognitive needs: No Hearing needs: No Vision needs: No Meds Allergies Allergy/AdvReac Type Severity Reaction Status Date / Time No Known Allergies Allergy Verified 10/08/22 20:42 Home Medications Medication Instructions Recorded Confirmed Last Taken Type escitalopram oxalate 10 mg tablet 10 mg PO DAILY@1300 PRN depression 02/02/20 06/22/22 Unknown History lorazepam 0.5 mg tablet 0.5 mg PO DAILY PRN Anxiety 02/02/20 09/25/22 09/25/22 History zolpidem 5 mg tablet 2.5 mg PO BEDTIME PRN Insomnia 03/04/21 06/22/22 Unknown History ketoconazole 2 % shampoo 1 appl topical MOFR@0900 05/19/21 06/22/22 03/29/22 History triamcinolone acetonide 0.1 % 1 appl topical BID PRN Dry Skin 05/19/21 06/22/22 Unknown History topical ointment bupropion HCl 75 mg tablet 1 tab PO DAILY 03/31/22 06/22/22 03/31/22 09:00 History gabapentin 600 mg tablet 1 tab PO DAILY 03/31/22 06/22/22 03/31/22 09:00 History geriatric znxqguaz-fohq-iufv 1 tab PO DAILY 03/31/22 06/22/22 03/31/22 09:00 History (Centravites 50 Plus tablet) omega 5-gsg-gvv-fish oil 1,000 mg 1 cap PO DAILY 03/31/22 06/22/22 03/31/22 09:00 History (120 mg-180 mg) capsule (Fish Oil) tacrolimus 0.1 % topical ointment 1 applic topical Q OTHER DAY 03/31/22 06/22/22 03/30/22 History metronidazole 0.75 % topical cream 1 appl topical DAILY 06/22/22 06/22/22 Unknown History Levbid 09/24/22 Unknown History Vitamin D (with calcium) 09/24/22 09/24/22 Unknown History amitriptyline 09/24/22 Unknown History fluticasone furoate 09/24/22 Unknown History fluticasone propionate 09/24/22 Unknown History hydroxyzine HCl 09/24/22 Unknown History ibuprofen 09/24/22 Unknown History melatonin 09/24/22 Unknown History pantoprazole 09/24/22 Unknown History tizanidine 09/24/22 Unknown History Exam Airway Mallampati Class: II TM Dist: <=3cm Neck ROM: Limited Heart: rrr Lungs: cta Assessment and Plan Final Anesthetic Review NPO: Yes ASA Class: III Final Preanesthetic Review: No Changes in Pt Med Stat, Meds/Allgs Chart Reviewed, Consent Obtained/Reviewed and Anes Risks/Benef Reviewed Patient Risk: Intermediate Procedure Risk: Intermediate Anesthetic Plan Anesthetic Plan: MAC: and Agree w/ Assess. and Plan Disposition: Standard PACU
[2022-11-11 13:34] VITALS: BP 154/84; PULSE 96; RESP 18; TEMP 36.5; O2SAT 98; BMI 23.3
--- NOTE | 2022-11-11 13:54 | MHC.SHP ---
Pre-Procedural Eval Section A Date of Service: 11/11/22 Section B Chief Complaint: Other diseases of stomach and duodenum Details of Present Illness: see H&P no changes Relevant Family History (Specify if Yes): No Present Medications: see Short Stay Collaborative assessment Medical History: No relevant PMH History of Previous Operations: No relevant previous surgery Allergies: Allergies Allergy/AdvReac Type Severity Reaction Status Date / Time No Known Allergies Allergy Verified 10/08/22 20:42 Review of Systems Sugical H&P ROS: Negative: Constitution, Cardiovascular, Respiratory, Neurological, Psychiatric, Hem-Onc, Allergic/Immunologic, Gastrointestinal, Genitourinary, Musculoskeletal, Integumentary, Endocrine and Eyes/Ears/Nose/Throat Exam Surgical H&P Exam: Normal: HEENT, Normal: Heart, Normal: Lungs, Normal: Extremities, Normal: Abdomen, Normal: Skin and Normal: Neurological Plan Diagnosis/Plan: Unchanged I have reviewed the history and physical and performed a pertinent physical examination on my patient. No changes have occurred unless specified. Time Spent With Patient Time: Total time managing care of this patient today ____ minutes.
[2022-11-11] MEDS: Lactated Ringers 1,000 ML 100 ML IVCONT (13:56)
--- NOTE | 2022-11-11 14:19 | PM.OP ---
Brief Operative Note Date of Service: 11/11/22 Pre-op diagnosis: gastric intestinal metaplasia Post-op diagnosis: same Surgeon: Alban Lopez Anesthesia: MAC Was an [employer] used for this Procedure?: No Estimated blood loss (mL): 2 Pathology: other Condition: stable Disposition: PACU
[2022-11-11 14:21] VITALS: BP 138/66; PULSE 98; RESP 16; TEMP 36.8; O2SAT 98
[2022-11-11 14:36] VITALS: BP 144/74; PULSE 83; RESP 18; TEMP 36.7; O2SAT 98
[2022-11-11 14:51] VITALS: BP 139/76; PULSE 80; RESP 17; TEMP 36.4; O2SAT 97
--- NOTE | 2022-11-11 15:12 | OP_ITS ---
DATE OF SERVICE: 11/11/2022 SURGEON: Alban Lopez MD INDICATIONS: Gastric intestinal metaplasia. PREOPERATIVE DIAGNOSIS: POSTOPERATIVE DIAGNOSIS: PROCEDURE PERFORMED: Upper endoscopy with biopsy. ESTIMATED BLOOD LOSS: COMPLICATIONS: ANESTHESIA: Monitored anesthesia care. ASSISTANTS: SPECIMENS: DESCRIPTION OF PROCEDURE: History and physical performed. The risks, benefits of the procedure were explained to the patient and informed consent was obtained. The patient was placed in the left lateral decubitus position. The Olympus video gastroscope was introduced into the esophagus, stomach, and duodenum. Examination was performed. The scope was removed. She tolerated the procedure well and was returned to recovery area in stable condition. FINDINGS: Esophagus: The esophagus was normal. There was no esophagitis. Stomach: The stomach showed no evidence of masses, ulcers, or polyps. Biopsies were obtained from the stomach because of the patient's history of gastric intestinal metaplasia in accordance with the recommended guidelines. Duodenum: The bulb and 2nd portion were normal. IMPRESSION: Gastric intestinal metaplasia. RECOMMENDATION: Follow up biopsy results. MD FRANSISCO Hernandez/CHRISTINEL / [id number]
== END 2022-11-11 15:30 | disposition home or self-care (01) ==
PROVIDERS: PCP Internal Medicine; Visit Provider Internal Medicine Gastroenterology
PROC: 0DJ08ZZ Inspection of Upper Intestinal Tract, Via Natural or Artificial Opening Endoscopic (ICD-10-PCS; CPT 43235; principal; 2022-11-11 14:20)
DX: K31.A0 Gastric intestinal metaplasia, unspecified (principal); K29.50 Unspecified chronic gastritis without bleeding; K21.9 Gastro-esophageal reflux disease without esophagitis; Z80.0 Family history of malignant neoplasm of digestive organs; K58.1 Irritable bowel syndrome with constipation; I24.9 Acute ischemic heart disease, unspecified; I10 Essential (primary) hypertension; E78.5 Hyperlipidemia, unspecified; G47.33 Obstructive sleep apnea (adult) (pediatric); I73.9 Peripheral vascular disease, unspecified; Z85.41 Personal history of malignant neoplasm of cervix uteri; F41.1 Generalized anxiety disorder; Z79.51 Long term (current) use of inhaled steroids; Z79.899 Other long term (current) drug therapy; Z87.891 Personal history of nicotine dependence
CPT/HCPCS: 43239; 88305; 88342

== ENCOUNTER 2022-11-26 11:29 | Outpatient (REF) | payer OTHER, SELFPAY ==
[2022-11-26 11:51] LABS: MANUAL DIFF FLAG NO
[2022-11-26 13:31] LABS: Basophils Absolute Auto 0.1 X10*3/uL (0.0-0.2); Basophils Percent Auto 1.2 % (0-2); Eosinophils Absolute Auto 0.6 X10*3/uL (0.0-0.4); Eosinophils Percent Auto 12.7 % (0-4); Hematocrit 41.8 % (37.0-47.0); Hemoglobin 13.6 g/dl (12.0-16.0); Imm Gran Abs Auto 0.01 X10*3/uL (0.00-0.03); Imm Gran Pct Auto 0.2 % (0.0-0.4); Lymphocytes Absolute Auto 1.4 X10*3/uL (1.2-4.9); Mean Corpuscular HGB Conc 32.5 g/dl (31.0-35.0); Mean Corpuscular Hemoglobin 29.6 pg (27.0-33.0); Mean Corpuscular Volume 91.1 fL (80.0-98.0); Mean Platelet Volume 12.4 fL (9.4-12.3); Monocytes Absolute Auto 0.4 X10*3/uL (0.1-1.2); Neutrophils Absolute Auto 2.5 x10*3/uL (2.0-8.3); Neutrophils Percent Auto 50.9 % (45-73); Platelet Count 149 X10*3/uL (160-400); Red Blood Count 4.59 X10*6/uL (4.20-5.50); Red Cell Distribution Width 13.7 % (11.0-16.0)
[2022-11-26 14:03] LABS: Alanine Aminotransferase 17 U/L (0-31); Albumin Level 4.2 g/dL (3.5-5.0); Alkaline Phosphatase 57 U/L (39-117); Aspartate Amino Transferase 18 U/L (5-31); Bilirubin Direct 0.2 mg/dL (0.0-0.5); Bilirubin Total 0.5 mg/dL (0.0-1.0); Lipase 34 U/L (8-78); Total Protein 7.3 g/dL (6.5-8.0)
[2022-11-27 15:51] LABS: Adenovirus F 40/41 Not Detected (Not Detect.); Astrovirus Not Detected (Not Detect.); Campylobacter Not Detected (Not Detect.); Cryptosporidium Not Detected (Not Detect.); Cyclospora cayetanensis Not Detected (Not Detect.); E. coli EAEC Not Detected (Not Detect.); E. coli EPEC Not Detected (Not Detect.); E. coli ETEC Not Detected (Not Detect.); E. coli STEC Not Detected (Not Detect.); Entamoeba histolytica Not Detected (Not Detect.); Giardia lamblia Not Detected (Not Detect.); Norovirus GI/GII Not Detected (Not Detect.); Plesiomonas shigelloides Not Detected (Not Detect.); Rotavirus A Not Detected (Not Detect.); Salmonella Not Detected (Not Detect.); Sapovirus Not Detected (Not Detect.); Shigella sp./EIEC Not Detected (Not Detect.); Vibrio Not Detected (Not Detect.); Vibrio Cholerae Not Detected (Not Detect.); Yersinia enterocolitica Not Detected (Not Detect.)
[2022-11-27 16:43] LABS: Leukocytes Stool Qualitative NEGATIVE (NEGATIVE)
== END 2022-11-26 11:30 | disposition home or self-care (01) ==
LOC: HO.LAB 11:29
PROVIDERS: PCP Internal Medicine; Visit Provider Internal Medicine Gastroenterology
DX: R10.84 Generalized abdominal pain (principal); R19.7 Diarrhea, unspecified
CPT/HCPCS: 36415; 80076; 83690; 85025; 87177; 87209; 87507; 89055

== ENCOUNTER 2022-12-04 13:26 | Outpatient (AMB) | payer OTHER, SELFPAY ==
[2022-12-04 13:29] VITALS: BP 126/72; PULSE 79; TEMP 36.3; O2SAT 96; BMI 24.4
--- NOTE | 2022-12-04 13:29 | A.OFFVIS_ITS ---
Intake Vital Signs 12/04/22 13:29 Height 5 ft 5 in Weight 146 lb 9.718 oz BMI 24.4 BP 126/72 Blood Pressure Location Rt brachial Position Sitting Pulse 79 Pulse Source Pulse Oximeter Temp 97.4 F Temp Source Skin Pulse Oximetry (%) 96 Intake Visit Reasons: OA Intake Note: Pt seen today for OA follow up. C/o pain in middle left finger, left leg pain and occasional right knee pain. 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: No Accompanied by: Self / Same As Patient Allergies No Known Allergies Allergy (Verified 12/04/22 13:31) Medication List - Last Reconciled 12/04/22 by Anh Gerardo MD bupropion HCl 1 tab PO DAILY diclofenac sodium 1% 2 grams topical BID PRN escitalopram oxalate 10 mg PO DAILY@1300 PRN fluticasone propionate 50 mcg/actuation (Flonase Allergy Relief) 2 sprays intranasal DAILY gabapentin 1 tab PO DAILY geriatric jdmwoudd-abic-urcs (Centravites 50 Plus tablet) 1 tab PO DAILY hydroxyzine HCl 10 mg PO ketoconazole 2% 1 appl topical MOFR@0900 [Levbid ] loratadine 10 mg PO DAILY lorazepam 0.5 mg PO DAILY PRN melatonin 10 mg PO BEDTIME PRN omeprazole 20 mg PO DAILY PRN tacrolimus 0.1% 1 applic topical Q OTHER DAY triamcinolone acetonide 0.1% 1 appl topical BID PRN [Vitamin D (with calcium) ] zolpidem 2.5 mg PO BEDTIME PRN HPI HPI Comments History of Present Illness Details This is a 67-year-old female who presents for evaluation of generalized osteoarthritis. Patient states that she has been having low back pain, she also has burning along the outside of her left hip going all the way to her left foot. With regards to her back pain. She was evaluated by Dr. Child 3 months ago and an epidural steroid injection was suggested. Patient had 2 epidural steroid injections in the past and they were helpful for the back pain as well as the burning on the outside of her hip. Patient was hesitant about the procedure. Dr. Posey asked patient to increase her gabapentin to 900 mg 3 times a day, patient was afraid of high dose. She also states that she gets pain and stiff of her left middle finger. She also gets some pain and stiffness of her thumbs especially with use. She applies Voltaren gel twice daily when her fingers hurt. [facility] Medical History Neuropathy Arthritis Diverticulitis Bipolar 1 disorder GERD (gastroesophageal reflux disease) Disc degeneration, lumbar Spondylosis of lumbar joint History of cervical cancer Irritable bowel syndrome with constipation Weak urinary stream Surgical menopause Osteopenia Essential hypertension Dyslipidemia Anxiety Hip pain, left Surgical History History of cardiac cath Hx of esophagogastroduodenoscopy Hx of colonoscopy History of partial hysterectomy Family History Father Throat cancer Mother No problems noted. Brother No problems noted. Sister No problems noted. Sister No problems noted. Sister No problems noted. Sister Hyperlipidemia HTN (hypertension) Depression Myocardial infarction Daughter No problems noted. Daughter No problems noted. Daughter No problems noted. Daughter No problems noted. Other Mental health disorder Substance use disorder Social History Housing: Apartment Alcohol intake: current Alcohol intake frequency: does not drink Alcohol type: wine Patient Tobacco Use Status: Former Tobacco user Quit Date: 12 years e-Cigarette/Vaping Use: Never Used Advance Directives Date on File: 12/21/19 service: No Current occupational status: unemployed Cognitive needs: No Hearing needs: No Vision needs: No Review of Systems Musc Reports back pain, Reports arthralgias, Reports radiating pain into limb, Reports stiffness and Reports tingling Neuro Reports tingling Physical Exam Vital Signs: Last Vital Signs Temp 97.4 F 12/04/22 13:29 BMI result Body Mass Index 24.4 Const General: cooperative, healthy appearing and comfortable Nutritional Appearance: average body habitus Orientation/consciousness: patient oriented x3 Limitations: no limitations HEENT Head: Yes normocephalic and Yes atraumatic Mouth: moist mucous membranes Resp Effort & Inspection: normal respiratory effort and able to speak in complete sentences Auscultation: clear to auscultation bilaterally Cardio Rate: regular rate Rhythm: regular rhythm Skin General skin exam: no rashes or lesions noted Neuro General: patient oriented x3 Extrem Other: Osteoarthritic changes of both hands with Nick's and Heberden's nodes Bilateral 1st CMC joint tenderness Left middle finger PIP tenderness Tenderness along the left 3rd flexor tendon No trochanteric bursa area tenderness bilaterally Negative Ana's test on the left Assessment & Plan Assessment & Plan (1) Primary osteoarthritis of both hands: Code(s): M19.041 - Primary osteoarthritis, right hand; M19.042 - Primary osteoarthritis, left hand Plan: Referred patient to occupational therapy, she mentioned that it was helpful before. I discussed potential steroid injections for bilateral 1st CMC joints and left middle finger trigger, patient is not interested in injections at this point. Continue to use Voltaren gel as needed Follow-up as needed (2) Left lumbar radiculopathy: Code(s): M54.16 - Radiculopathy, lumbar region Plan: Patient received 2 epidural injections by Pain Management in the past. Which were helpful for her back pain as well as the burning on the outside of her left lower extremity. Her back pain has returned and another injection was suggested, patient was worried about any side effects. Follow-up with as needed with pain management Plan I spent 18 minutes reviewing patient's chart, evaluating patient, placing orders, counseling patient and documenting in the chart Orders: Orders OT Evaluation and Treatment Today M19.041 - Primary osteoarthritis, right hand, M19.042 - Primary osteoarthritis, left hand Coding Level of Care Code Est Pt Level 3 (08795) Diagnoses Primary osteoarthritis of both hands M19.041; M19.042 Left lumbar radiculopathy M54.16
== END 2022-12-04 13:56 | disposition home or self-care (01) ==
PROVIDERS: PCP Internal Medicine; Visit Provider Student in an Organized Health Care Education/Training Program
DX: M19.041 Primary osteoarthritis, right hand (principal); M19.042 Primary osteoarthritis, left hand; M54.16 Radiculopathy, lumbar region
CPT/HCPCS: 99213

== ENCOUNTER → 2022-12-04 13:26 | Outpatient (BNVA) | payer OTHER, SELFPAY | PROVIDERS: PCP Internal Medicine; Visit Provider Student in an Organized Health Care Education/Training Program | DX: M19.041 Primary osteoarthritis, right hand (principal); M19.042 Primary osteoarthritis, left hand; M54.16 Radiculopathy, lumbar region | CPT/HCPCS: 99212 ==

== ENCOUNTER 2022-12-05 10:47 | Outpatient (REF) | payer OTHER, SELFPAY ==
[2022-12-05 14:03] LABS: Appearance Urine Clear; Color Urine Yellow; Glucose Urine UA Negative (Negative); Leukocyte Esterase Urine Trace (Negative); Nitrite Urine Negative (Negative); PH 6.5 (5.0-9.0); UMIC TRIGGER UA YES; Urine Blood Negative (Negative); Urine Ketones Negative (Negative); Urine Protein Negative (Neg-Trace)
[2022-12-05 14:08] LABS: Bacteria Urine None Seen (None Seen); Hyaline Casts Urine 0-2 /LPF (0-2); RBC Urine 0-2 /HPF (0-2); Squamous Epithelial Cell Urine 0-2 /HPF (0-2); WBC Urine 0-5 /HPF (0-5)
== END 2022-12-05 10:48 | disposition home or self-care (01) ==
LOC: HO.HMGCLDS 10:47
PROVIDERS: PCP Internal Medicine; Visit Provider Nurse Practitioner Family
DX: R39.9 Unspecified symptoms and signs involving the genitourinary system (principal)
CPT/HCPCS: 81001; 87086

== ENCOUNTER 2022-12-07 14:46 | Outpatient (AMB) | payer OTHER, SELFPAY ==
[2022-12-07 14:56] VITALS: BP 126/80; PULSE 75; RESP 16; O2SAT 99; BMI 24.5
--- NOTE | 2022-12-07 14:56 | MHC.OFFVIS ---
Intake Vital Signs 12/07/22 14:56 Height 5 ft 5 in Weight 147 lb BMI 24.5 BP 126/80 Blood Pressure Location Rt brachial Position Sitting Respiration 16 Pulse 75 Pulse Source Pulse Oximeter Pulse Oximetry (%) 99 Oxygen Delivery Method Room Air Intake Visit Reasons: Back pain Allergies No Known Allergies Allergy (Verified 12/07/22 14:56) HPI HPI Comments History of Present Illness Details Jessa is in my office today to discuss treatment options. She is under my care for significant period of time. Her main complaint is lower back pain with radiation to bilateral lower extremities. She reports that the pain radiating into extremities much stronger is pain in the center of her back. In the past she received transforaminal epidural steroid injections with very good results. We were doing left L4-5 and L5-S1 TFESI for her in the past. She requests me to schedule her for transforaminal epidural steroid injection left L4-5 and L5-S1. She wants this procedure to be done without sedation. Prior: TFESI left L4-5 L5-S1 was performed 05/27/2021.? She reports 100% pain improvement in the back.? She reports absence of the pain radiating into the lower extremities on left.? She reports better mobility better activities of daily living better social interactions.? She reports that the pain relieve is lasting for more than 1 month already.? She would like to repeat this injection again when pain will come back.? She reports crawling sensations pins and needles and burning sensation in bilateral lower extremities as well as heaviness in bilateral lower extremities with walking.? This complain she was referred to vascular surgeon.? She was diagnosed with chronic venous insufficiency by ultrasound.? She is waiting for a decisive treatment from Dr. Brayan Brasher,? manager interventional.? Prior:? Jessa is suffering fromt left lumbar radiculopathy as well as her right SIJ pain.? In the past she underwent a L4-L5 RED with one year of pain relief.? That was about 2 years ago.? Unfortunately 2nd transforaminal epidural injection placed the same very way by the same practitioner resulted in no pain relief.? She went for MRI done in January of 2021.? It demonstrated some arthritic changes in the lumbar spine and some pinched nerves at L5-S1.? The full MRI dictated is as below.? Meanwhile she will? continue tizanidine for her pain control.? At is written for her with many refills rWendy [facility] Medical History Neuropathy Arthritis Diverticulitis Bipolar 1 disorder GERD (gastroesophageal reflux disease) Disc degeneration, lumbar Spondylosis of lumbar joint History of cervical cancer Irritable bowel syndrome with constipation Weak urinary stream Surgical menopause Osteopenia Essential hypertension Dyslipidemia Anxiety Hip pain, left Surgical History History of cardiac cath Hx of esophagogastroduodenoscopy Hx of colonoscopy History of partial hysterectomy Family History Father Throat cancer Mother No problems noted. Brother No problems noted. Sister No problems noted. Sister No problems noted. Sister No problems noted. Sister Hyperlipidemia HTN (hypertension) Depression Myocardial infarction Daughter No problems noted. Daughter No problems noted. Daughter No problems noted. Daughter No problems noted. Other Mental health disorder Substance use disorder Social History Housing: Apartment Alcohol intake: current Alcohol intake frequency: does not drink Alcohol type: wine Patient Tobacco Use Status: Former Tobacco user Quit Date: 12 years e-Cigarette/Vaping Use: Never Used Advance Directives Date on File: 12/21/19 service: No Current occupational status: unemployed Cognitive needs: No Hearing needs: No Vision needs: No Review of Systems Const All systems reviewed & are unremarkable except as noted in HPI and below ENT Reports Normal hearing present Neuro Reports Normal hearing present, Denies Abnormal speech present and Denies Sensory deficit (Neuro) Physical Exam Vital Signs: Last Vital Signs Pulse 75 12/07/22 14:56 Resp 16 12/07/22 14:56 BP 126/80 12/07/22 14:56 Pulse Ox 99 12/07/22 14:56 Oxygen Delivery Method Room Air 12/07/22 14:56 BMI result Body Mass Index 24.5 Const General: comfortable, no acute distress, well developed, alert and awake Eyes Pupils: Equal, round and reactive pupils present EOM: EOMs intact bilaterally Chest Chest palpation & inspection: normal inspection of the chest Resp Effort & Inspection: normal respiratory effort, able to speak in complete sentences, normal respiratory pattern, no audible wheezes and no cough Cardio Jugular venous distension: no JVD Neuro Cranial nerves: Yes Equal, round and reactive pupils present and Yes Normal hearing present Speech: No Abnormal speech present Sensory Exam: No Sensory deficit (Neuro) Psych Speech and movement: Normal speech and movement present Affect: normal affect Attitude: cooperative Results Reviewed Results Reviewed: MRI lumbar spine 01/14/2021 Trace grade 1 degenerative spondylolisthesis at L5-S1 stable in appearance. 2 mm of retrolisthesis at L2-L3 stable in appearance. Lordotic curvature is maintained. Lumbar sacral junction normal several bodies normal height. Disc spaces and endplates: Moderate disc space and height loss. Slightly progressed from previous exam at L5-S1 with disc desiccation and Schmorl nodes, similar in appearance, with some progression of anterolateral spondylosis. Mild disc space height loss at L2-L3, slightly progressed. Multilevel disc desiccation throughout the thoracolumbar spine similar to previous exam. Spinal canal: No abnormal development findings. Bone marrow: Mild type 2 and the minimal type 1 marrow signal changes along with endplates L5-S1 with improvement and type 1 marrow signal changes at this level since the previous exam. Conus terminates at L1-L2. L5-S1: Concentric disc bulging and tiny central annual fissure again noted with progression of lateral foraminal component of disc bulging since previous exam bilaterally. Moderate left-sided and [id number] right-sided facet arthropathy similar to previous study. No significant spinal canal stenosis. There is severe left-sided and [id number] right-sided neural foraminal stenosis. The stenosis progressed from previous exam with left L5 nerve root impingement. There is also right L5 nerve root impingement to a lesser degree which is also new finding. L4-5: Disc bulging is noted again. Right-sided extraforaminal foraminal disc protrusion also noted again. Slightly more prominent on current study which is abutting the exiting right L4 nerve root without nerve root compression or displacement. There is a severe right-sided and moderate left-sided facet arthropathy with ligamentum flavum thickening, similar to previous exam without significant spinal canal stenosis. [id number] bilateral neural foraminal narrowing was progressed. Minor annular disc bulging noted the more apparent on current study with mild flattening of the dural sac and moderate bilateral facet arthrosis with ligamentum flavum thickening similar to the previous exam with significant spinal canal or neural foraminal stenosis. L2-L3: Mild disc bulging and left retrolisthesis with mild flattening of dural sac is stable with mild facet arthropathy without significant canal or neural foraminal stenosis. L1-L2: No disc bulge or herniation and no significant facet arthrosis, canal or neural foraminal stenosis. Assessment & Plan Assessment & Plan (1) Spondylosis of lumbar joint: Code(s): M47.816 - Spondylosis without myelopathy or radiculopathy, lumbar region (2) Disc degeneration, lumbar: Code(s): M51.36 - Other intervertebral disc degeneration, lumbar region (3) Radiculopathy, lumbar region: Code(s): M54.16 - Radiculopathy, lumbar region (4) Radiculopathy due to lumbar intervertebral disc disorder: Code(s): M51.16 - Intervertebral disc disorders with radiculopathy, lumbar region Plan After reviewing the MRI it appears that the pain of this patient is multifactorial it related most likely to degenerative disc disease in compression and impingement of the nerve roots as well as significant foraminal stenosis. She also has spondylolisthesis spondylosis and facet arthropathy. left-sided medial branch block L2-L3 L4 does ramus L5 diagnostic 1. Resulted in no pain improvement however transforaminal epidural steroid injection L5-S1 and L4-5 on the left resulted in sustained 100% lower back pain improvement with absence of radiation into the left lower extremity. Now her pain is back in [place] she would like me to perform the repeat of L4-5 and L5-S1 left transforaminal epidural steroid injection. Risks and benefits were carefully explained to the patient. The patient agreed to go for the procedure without sedation. Coding Level of Care Code Est Pt Level 4 (43063) Diagnoses Spondylosis of lumbar joint M47.816 Disc degeneration, lumbar M51.36 Radiculopathy, lumbar region M54.16 Radiculopathy due to lumbar intervertebral disc disorder M51.16
== END 2022-12-07 15:06 | disposition home or self-care (01) ==
PROVIDERS: PCP Internal Medicine; Visit Provider Anesthesiology
DX: M54.16 Radiculopathy, lumbar region (principal); M51.36 Other intervertebral disc degeneration, lumbar region; M51.16 Intervertebral disc disorders with radiculopathy, lumbar region
CPT/HCPCS: 99214

== ENCOUNTER → 2022-12-07 14:46 | Outpatient (BNVA) | payer OTHER, SELFPAY | PROVIDERS: PCP Internal Medicine; Visit Provider Anesthesiology | DX: M47.816 Spondylosis without myelopathy or radiculopathy, lumbar region (principal); M51.36 Other intervertebral disc degeneration, lumbar region; M51.16 Intervertebral disc disorders with radiculopathy, lumbar region | CPT/HCPCS: 99212 ==

== ENCOUNTER 2022-12-08 11:52 | Outpatient (AMB) | payer OTHER, SELFPAY ==
--- NOTE | 2022-12-08 11:55 | MHC.OFFVIS ---
Intake Intake Visit Reasons: follow up/US Intake Note: Patient presents for follow up recurrent uti/ultrasound (imaging 10/19/22) Urology Medication: tamsulosin, estrace cream Blood Thinner: aspirin PVR: 100ml's Getter Filler Required: No Accompanied by: Self / Same As Patient Allergies No Known Allergies Allergy (Verified 12/08/22 12:58) Medication List - Last Reconciled 12/08/22 by ERICA WarrenP- bupropion HCl 1 tab PO DAILY diclofenac sodium 1% 2 grams topical BID PRN escitalopram oxalate 10 mg PO DAILY@1300 PRN estradiol 0.01%(0.1mg/gram) vaginally 3 times a week; pea sized amount to urethra 3 times a week 30 days fluticasone propionate 50 mcg/actuation (Flonase Allergy Relief) 2 sprays intranasal DAILY gabapentin 1 tab PO DAILY geriatric [id number]-ytyr-fsib (Centravites 50 Plus tablet) 1 tab PO DAILY hydroxyzine HCl 10 mg PO ketoconazole 2% 1 appl topical MOFR@0900 [Levbid ] loratadine 10 mg PO DAILY lorazepam 0.5 mg PO DAILY PRN melatonin 10 mg PO BEDTIME PRN omeprazole 20 mg PO DAILY PRN tacrolimus 0.1% 1 applic topical Q OTHER DAY tamsulosin 0.4 mg PO DAILY triamcinolone acetonide 0.1% 1 appl topical BID PRN [Vitamin D (with calcium) ] zolpidem 2.5 mg PO BEDTIME PRN HPI HPI Comments History of Present Illness Details Jessa is a pleasant 67-year-old female patient of Dr. Soni. She has a past medical history of anxiety, arthritis, bipolar, degenerative disc disease, diverticulitis, dyslipidemia, hypertension, GERD, history of cervical cancer, irritable bowel syndrome with constipation, neuropathy, osteopenia. She presents to the office today for follow-up regarding her recurrent urinary tract infections. Of note, patient was seen 2 months ago at which time a retroperitoneal ultrasound was ordered for further assessment and evaluation. These results were reviewed with the patient today. Bilateral kidneys with no lesions and or hydronephrosis noted. Left kidney with probable 1 by 8 x 9 mm peripelvic cyst in the upper pole. No imaging follow-up recommended per radiology report. The bladder is well distended. Bladder wall upper normal in thickness measuring 4 mm. No stone or masses visualized. Pre void bladder volume is approximately 400 mL. Postvoid bladder volume is approximately 150 mL. In office urinalysis results reviewed with the patient today. PVR 100mls. Discussed at length causes and affects of incomplete bladder emptying. She currently denies any bothersome urinary symptoms. Discussed attempting to double void verses low-dose trial of terazosin. Patient does report having issues with her bowels and intestines and follows with GI. She discusses having had two recent upper endoscopies. She also discusses at length the loss of 1 of her daughters from breast cancer. She discusses the anniversary of her passing on February 16 and breast cancer were nurse month coming up in December. She otherwise offers no issues or concerns at this time. [facility] Medical History Neuropathy Arthritis Diverticulitis Bipolar 1 disorder GERD (gastroesophageal reflux disease) Disc degeneration, lumbar Spondylosis of lumbar joint History of cervical cancer Irritable bowel syndrome with constipation Weak urinary stream Surgical menopause Osteopenia Essential hypertension Dyslipidemia Anxiety Hip pain, left Surgical History History of cardiac cath Hx of esophagogastroduodenoscopy Hx of colonoscopy History of partial hysterectomy Family History Father Throat cancer Mother No problems noted. Brother No problems noted. Sister No problems noted. Sister No problems noted. Sister No problems noted. Sister Hyperlipidemia HTN (hypertension) Depression Myocardial infarction Daughter No problems noted. Daughter No problems noted. Daughter No problems noted. Daughter No problems noted. Other Mental health disorder Substance use disorder Social History Housing: Apartment Alcohol intake: current Alcohol intake frequency: does not drink Alcohol type: wine Patient Tobacco Use Status: Former Tobacco user Quit Date: 12 years e-Cigarette/Vaping Use: Never Used Advance Directives Date on File: 12/21/19 service: No Current occupational status: unemployed Cognitive needs: No Hearing needs: No Vision needs: No Review of Systems Const Reports as per HPI Eyes Reports no additional complaints ENT Reports no additional complaints Card Reports as per HPI Resp Reports no additional complaints GI Reports as per HPI Reports as per HPI Musc Reports as per HPI Neuro Reports as per HPI Psych Reports as per HPI Albino/Lymph Reports no additional complaints Aller/Immun Reports no additional complaints Physical Exam Const General: cooperative, healthy appearing, comfortable, no acute distress, well developed, alert and awake Nutritional Appearance: average body habitus Orientation/consciousness: patient oriented x3 Limitations: no limitations HEENT Head: Yes normal to inspection, Yes normocephalic and Yes atraumatic Ears: hearing grossly normal bilaterally Eyes General: appearance normal, both eyes and all related structures Neck Neck: Yes normal visual inspection and Yes trachea midline Chest Chest palpation & inspection: normal inspection of the chest Resp Effort & Inspection: normal respiratory effort and able to speak in complete sentences Cardio Rate: regular rate GI Inspection: Yes normal to inspection General: Yes no CVA tenderness Back/Spine/Pelvis Back: no CVA tenderness Skin General skin exam: no rashes or lesions noted Neuro General: patient oriented x3 Extrem General: Yes normal to inspection Psych Appearance: grossly normal and well kempt Mental Status: mental status grossly normal Speech and movement: Normal speech and movement present and Clear speech present Affect: normal affect Attitude: cooperative Thought process: Normal thought process present Thought content: Normal thought content present Insight: Fair insight present (Psych) Judgement: Fair judgement present (Psych) Office Procedures Post Void Residual Post Residual Void Post Void Residual (PVR): 100 [id number] Void Residual by ultrasound Results AMB Urinalysis, Automated UA Leukoctes 0 Alexander/uL Last Edit by Storybird on 12/08/22 12:25 UA Nitrite Negative Last Edit by Storybird on 12/08/22 12:25 UA Urobilinogen 0.2 mg/dL Last Edit by Storybird on 12/08/22 12:25 UA Protein 0 mg/dL Last Edit by Storybird on 12/08/22 12:25 UA pH 7.0 Last Edit by Storybird on 12/08/22 12:25 UA Blood 0 Sivakumar/uL Last Edit by Storybird on 12/08/22 12:25 UA Specific [place] 1.010 Last Edit by Storybird on 12/08/22 12:25 UA Ketone Negative Last Edit by Storybird on 12/08/22 12:25 UA Bilirubin 0 mg/dL Last Edit by Storybird on 12/08/22 12:25 UA Glucose 0 mg/dL Last Edit by Diane Villa on 12/08/22 12:25 Results Reviewed Results Reviewed: Laboratory Last Values Urine pH (Auto) 7.0 12/08/22 12:02 Specific [place] (Auto) 1.010 12/08/22 12:02 Urine Protein (Auto) 0 mg/dL 12/08/22 12:02 Glucose (UA)(Auto) 0 mg/dL 12/08/22 12:02 Urine Ketones (Auto) Negative 12/08/22 12:02 Urine Blood (Auto) 0 Sivakumar/uL 12/08/22 12:02 Urine Nitrite (Auto) Negative 12/08/22 12:02 Urine Bilirubin (Auto) 0 mg/dL 12/08/22 12:02 Urine Urobilinogen (Auto) 0.2 mg/dL 12/08/22 12:02 Leukocyte Esterase (Auto) 0 Alexander/uL 12/08/22 12:02 Date of Service: 10/19/22 EXAMINATION: US RETROPERITONEAL COMPLETE (RENAL) FINDINGS: RIGHT KIDNEY: 10 4 x 6 cm (SAG x AP x TRV). The kidney is normal in size, contour, and echogenicity. Renal cortical thickness is normal. No calculi or focal parenchymal lesions. No hydronephrosis. LEFT KIDNEY: 11.7 x 4 x 4 cm (SAG x AP x TRV). The kidney is normal in size, contour, and echogenicity. Renal cortical thickness is normal. No calculi. Probable 1 x 8 x 9 mm peripelvic cyst in the upper pole. No imaging follow-up recommended. No hydronephrosis. BLADDER: Well distended. Bladder wall upper normal in thickness measuring 4 mm. No stone or mass.. Bilateral ureteral jets are demonstrated. Prevoid bladder volume is 391 mL. Postvoid bladder volume is 150 mL. IMPRESSION: 150 mL post void bladder residual. Assessment & Plan Assessment & Plan (1) Incomplete bladder emptying: Code(s): R33.9 - Retention of urine, unspecified (2) Recurrent UTI (urinary tract infection): Code(s): N39.0 - Urinary tract infection, site not specified Plan In office urinalysis results reviewed with the patient today. PVR 0 mL. Recent retroperitoneal ultrasound results reviewed with the patient today; as noted above. Discussed attempting to double void to assist with incomplete bladder emptying. Discussed at length causes and affects of incomplete bladder emptying in the setting of recurrent urinary tract infections. Patient reports compliance with Estrace cream as prescribed. Discussed low-dose terazosin to attempt to assist with incomplete bladder emptying. Patient denies any bothersome urinary issues at this time. Discussed UTI prevention with D mannose supplement, vitamin-C, increasing fluid intake, behavioral therapy with timed voiding, perineal hygiene and postcoital voiding, and management of constipation with stool softeners and increased fiber intake Follow-up in 3 months with PVR; or sooner with any issues, concerns, and or questions. Orders: Orders AMB Urinalysis Automated Today Z13.9 - Encounter for screening, unspecified AMB Post Void Residual by ultrasound Today R39.9 - Unspecified symptoms and signs involving the genitourinary system Patient Instructions: The patient had an opportunity to ask questions regarding the treatment plan. All questions were answered. Physical exam, labs, and imaging were discussed and reviewed in detail. As well as risks, benefits, and discussion of treatment choices. No major barriers to understanding were identified. The patient expressed understanding and agreement with the above treatment plan. The patient was made aware they should contact our office by phone for worsening of their current condition, the appearance of new symptoms, or with any questions or concerns. Compliance is encouraged with any medications and follow up testing that is ordered. It is a privilege to be allowed the opportunity to participate in? your urological care.? Again, if you have any questions or concerns If you have any questions or concerns please do not hesitate to contact me. The office is [phone]. This note is constructed using voice recognition software. While every effort has been made to ensure accuracy machines technician errors may have been included. Yours sincerely, JASON Warren Coding Level of Care Code Est Pt Level 3 (61566) Diagnoses Incomplete bladder emptying R33.9 Recurrent UTI (urinary tract infection) N39.0 CPT Codes Post Residual Void - PVR CPT Code: 06127-Yuih Void Residual by ultrasound ([id number])
== END 2022-12-08 12:58 | disposition home or self-care (01) ==
PROVIDERS: PCP Internal Medicine; Visit Provider Nurse Practitioner Family
DX: R33.9 Retention of urine, unspecified (principal); N39.0 Urinary tract infection, site not specified
CPT/HCPCS: 99213

== ENCOUNTER → 2022-12-08 11:52 | Outpatient (BNVA) | payer OTHER, SELFPAY | PROVIDERS: PCP Internal Medicine; Visit Provider Nurse Practitioner Family | DX: N39.0 Urinary tract infection, site not specified (principal); R33.9 Retention of urine, unspecified; Z85.41 Personal history of malignant neoplasm of cervix uteri | CPT/HCPCS: 51798; 81003; 99212 ==

== ENCOUNTER 2022-12-22 06:07 | Outpatient (REF) | payer OTHER, SELFPAY ==
--- NOTE | ~2022-12-22 | FL_ITS ---
EXAMINATION: XR FLUOROSCOPY WITH IMAGES CLINICAL INFORMATION: Intervertebral disc disorders with radiculopathy, lumbar region. COMPARISON: None available. TECHNIQUE: Fluoroscopy Supervised By: Dr. Sergio Child. Fluoroscopy Time: 0.3 minutes. Cumulative Dose: 8.38 mGy. DAP: 0.145 Gycm2. Images: 2. FINDINGS: Images demonstrate needle placement and contrast injection adjacent to the left lateral L4 and L5 vertebrae FL/FL guidance in treatment room IMPRESSION: Fluoroscopy guidance for pain management procedure
== END 2022-12-22 06:08 | disposition home or self-care (01) ==
LOC: CF 06:07
PROVIDERS: Visit Provider Anesthesiology
DX: M51.16 Intervertebral disc disorders with radiculopathy, lumbar region (principal); M53.3 Sacrococcygeal disorders, not elsewhere classified; M47.816 Spondylosis without myelopathy or radiculopathy, lumbar region; M51.36 Other intervertebral disc degeneration, lumbar region
CPT/HCPCS: 64483; 64484; J3301

== ENCOUNTER 2022-12-22 11:00 | Outpatient (AMB) | payer OTHER, SELFPAY ==
[2022-12-22 11:09] VITALS: BP 140/68; PULSE 61; RESP 16; O2SAT 98; BMI 24.5
--- NOTE | 2022-12-22 11:09 | MHC.OFFVIS ---
Intake Vital Signs 12/22/22 11:09 12/22/22 11:10 Height 5 ft 5 in 5 ft 5 in Weight 147 lb 147 lb BMI 24.5 24.5 BP 140/68 H 140/64 H Blood Pressure Location Lt brachial Lt brachial Position Sitting Sitting Respiration 16 16 Pulse 61 76 Pulse Source Pulse Oximeter Pulse Oximeter Pulse Oximetry (%) 98 99 Oxygen Delivery Method Room Air Room Air Comment pre-op post-op Intake Visit Reasons: L L4-L5, L5-S1 TFESI/LOCAL Allergies No Known Allergies Allergy (Verified 12/22/22 11:09) PFSH Medical History Neuropathy Arthritis Diverticulitis Bipolar 1 disorder GERD (gastroesophageal reflux disease) Disc degeneration, lumbar Spondylosis of lumbar joint History of cervical cancer Irritable bowel syndrome with constipation Weak urinary stream Surgical menopause Osteopenia Essential hypertension Dyslipidemia Anxiety Hip pain, left Surgical History History of cardiac cath Hx of esophagogastroduodenoscopy Hx of colonoscopy History of partial hysterectomy Family History Father Throat cancer Mother No problems noted. Brother No problems noted. Sister No problems noted. Sister No problems noted. Sister No problems noted. Sister Hyperlipidemia HTN (hypertension) Depression Myocardial infarction Daughter No problems noted. Daughter No problems noted. Daughter No problems noted. Daughter No problems noted. Other Mental health disorder Substance use disorder Social History Housing: Apartment Alcohol intake: current Alcohol intake frequency: does not drink Alcohol type: wine Patient Tobacco Use Status: Former Tobacco user Quit Date: 12 years e-Cigarette/Vaping Use: Never Used Advance Directives Date on File: 12/21/19 service: No Current occupational status: unemployed Cognitive needs: No Hearing needs: No Vision needs: No Physical Exam Vital Signs: Last Vital Signs Pulse 76 12/22/22 11:10 Resp 16 12/22/22 11:10 BP 140/64 H 12/22/22 11:10 Pulse Ox 99 12/22/22 11:10 Oxygen Delivery Method Room Air 12/22/22 11:10 BMI result Body Mass Index 24.5 Assessment & Plan Assessment & Plan (1) Left lumbar radiculopathy: Code(s): M54.16 - Radiculopathy, lumbar region (2) Sacroiliac joint pain: Code(s): M53.3 - Sacrococcygeal disorders, not elsewhere classified (3) Spondylosis of lumbar joint: Code(s): M47.816 - Spondylosis without myelopathy or radiculopathy, lumbar region (4) Disc degeneration, lumbar: Code(s): M51.36 - Other intervertebral disc degeneration, lumbar region (5) Radiculopathy, lumbar region: Code(s): M54.16 - Radiculopathy, lumbar region (6) Radiculopathy due to lumbar intervertebral disc disorder: Code(s): M51.16 - Intervertebral disc disorders with radiculopathy, lumbar region Plan: Transforaminal epidural steroid injection L4-5 and L5-S1 on the left. THE PATIENT CAME TO THE OPERATING ROOM AFTER OBTAINING INFORMED CONSENT. THE RISKS OF THE PROCEDURE WERE DELINEATED THE RISK OF BLEEDING, INFECTION, PERIPHERAL NERVE DAMAGE EPIDURAL HEMATOMA EPIDURAL ABSCESS AND OTHER UNSPECIFIED RISKS. THE PATIENT WAS POSITIONED PRONE ON THE OPERATING TABLE . TIME-OUT WAS OBTAINED DELINEATING CORRECT SIDE AND SITE OF THE PROCEDURE, PATIENT NAME AND DATE OF , NEED OF THE ANTIBIOTIC, RISK OF FIRE. The PATIENT PARTICIPATED IN THE TIME OUT PROCEDURE. LUMBAR AREA OF THE PATIENT WAS PREPPED WITH CHLORAPREP AND DRAPED WITH STERILE DRAPES, STERILELY DRAPED C-ARM WAS BROUGHT OVER THE OPERATING FIELD AND SQ PICTURE OF L4 VERTEBRA WAS DELINEATED ON THE SCREEN. C-ARM WAS TILTED 30? TO THE left SIDE AND PICTURE OF THE left PEDICLE [id number] WAS OBTAINED ON THE SCREEN. 3 MM BELOW THE LOWEST POINT OF THE PEDICLE PROJECTION TO THE SKIN WAS CHOSEN A STARTING POINT OF THE INJECTION. 22 GAUGE 5 IN SPINAL NEEDLE WAS INSERTED THROUGH THE SKIN AND STARTED TO ADVANCE TO THE FORAMINA IN ANTERIOR POSTERIOR, OBLIQUE AND LATERAL VIEWS IN TUNNEL VISION FASHION. WHEN ON LATERAL VIEW THE NEEDLE ENTERED THE MOST POSTERIOR AND SUPERIOR PORTION OF THE FORAMINA INJECTION OF THE CONTRAST PERFORMED DELINEATING ANTERIOR EPIDURAL SPREAD OF THE CONTRAST. AFTER THAT TREATMENT SOLUTION CONTAINING 2 ML OF PRESERVATIVE-FREE LIDOCAINE 1% MIXED WITH KENALOG 40 MG WAS INJECTED INTO THE NEEDLE. UPON COMPLETION OF THE INJECTION THE NEEDLE WAS REMOVED AND STERILE DRESSING WAS APPLIED. THERE INJECTION WAS REPEATED AT THE LEVEL L5-S1 ON THE LEFT IN THE SAME VERY FASHION ABOVE. PATIENT TOLERATED PROCEDURE WELL . Plan After reviewing the MRI it appears that the pain of this patient is multifactorial it related most likely to degenerative disc disease in compression and impingement of the nerve roots as well as significant foraminal stenosis. She also has spondylolisthesis spondylosis and facet arthropathy. left-sided medial branch block L2-L3 L4 does ramus L5 diagnostic 1. Resulted in no pain improvement however transforaminal epidural steroid injection L5-S1 and L4-5 on the left resulted in sustained 100% lower back pain improvement with absence of radiation into the left lower extremity. Now her pain is back in [place] she would like me to perform the repeat of L4-5 and L5-S1 left transforaminal epidural steroid injection. Risks and benefits were carefully explained to the patient. The patient agreed to go for the procedure without sedation. Orders: Orders FL guidance in treatment room Today M51.16 - Intervertebral disc disorders with radiculopathy, lumbar region Coding Level of Care Code Procedure Only Diagnoses Left lumbar radiculopathy M54.16 Sacroiliac joint pain M53.3 Spondylosis of lumbar joint M47.816 Disc degeneration, lumbar M51.36 Radiculopathy, lumbar region M54.16 Radiculopathy due to lumbar intervertebral disc disorder M51.16
[2022-12-22 11:10] VITALS: BP 140/64; PULSE 76; RESP 16; O2SAT 99; BMI 24.5
== END 2022-12-22 11:52 | disposition home or self-care (01) ==
LOC: HO.PMCPRC 11:00
PROVIDERS: PCP Internal Medicine; Visit Provider Anesthesiology
DX: M51.16 Intervertebral disc disorders with radiculopathy, lumbar region (principal)
CPT/HCPCS: 64483; 64484

== ENCOUNTER 2023-01-25 12:59 | Outpatient (AMB) | payer OTHER, SELFPAY ==
--- NOTE | 2023-01-25 13:02 | MHC.OFFVIS ---
Intake Vital Signs 01/25/23 13:20 Height 5 ft 5 in Weight 145 lb 2 oz BMI 24.1 BP 160/70 H Blood Pressure Location Lt brachial Position Sitting Respiration 16 Pulse 85 Pulse Source Pulse Oximeter Pulse Oximetry (%) 97 Oxygen Delivery Method Room Air Intake Visit Reasons: L L4-L5, L5-S1 TFESI 12/22/22 / Confirmed Allergies No Known Allergies Allergy (Verified 01/25/23 13:21) HPI HPI Comments History of Present Illness Details Jessa is in my office today to discuss treatment options. She is under my care for significant period of time. Her main complaint is lower back pain with radiation to bilateral lower extremities. She now reports that most of her pain in the lower lumbar spine is of burning sensation. She reports that prolong sitting and flexing forward aggravates her pain. She received transforaminal L4-5 and L5-S1 epidural steroid injections with intermittent success. The last injection which was done on L4-5 L5-S1 on the left on 12/22/2022 results only in moderate pain improvement in pain going down the lower extremity but not all improvement in the lower back. That attention was attracted today that the patient has a Modic type changes at L5-S1 and possibly even L4 vertebra as. I offered her today intercept procedure. She requested to read material about this. I will schedule her if she wants to for the intraseptal procedure as soon as possible before offering her any neuromodulation procedures in the future. Prior: TFESI left L4-5 L5-S1 was performed 05/27/2021.? She reports 100% pain improvement in the back.? She reports absence of the pain radiating into the lower extremities on left.? She reports better mobility better activities of daily living better social interactions.? She reports that the pain relieve is lasting for more than 1 month already.? She would like to repeat this injection again when pain will come back.? She reports crawling sensations pins and needles and burning sensation in bilateral lower extremities as well as heaviness in bilateral lower extremities with walking.? This complain she was referred to vascular surgeon.? She was diagnosed with chronic venous insufficiency by ultrasound.? She is waiting for a decisive treatment from Dr. Brayan Brasher,? gauge and weigh machine adjuster.? Prior:? Jessa is suffering fromt left lumbar radiculopathy as well as her right SIJ pain.? In the past she underwent a L4-L5 RED with one year of pain relief.? That was about 2 years ago.? Unfortunately 2nd transforaminal epidural injection placed the same very way by the same practitioner resulted in no pain relief.? She went for MRI done in January of 2021.? It demonstrated some arthritic changes in the lumbar spine and some pinched nerves at L5-S1.? The full MRI dictated is as below.? Meanwhile she will? continue tizanidine for her pain control.? At is written for her with many refills r. [facility] Medical History Neuropathy Arthritis Diverticulitis Bipolar 1 disorder GERD (gastroesophageal reflux disease) Disc degeneration, lumbar Spondylosis of lumbar joint History of cervical cancer Irritable bowel syndrome with constipation Weak urinary stream Surgical menopause Osteopenia Essential hypertension Dyslipidemia Anxiety Hip pain, left Surgical History History of cardiac cath Hx of esophagogastroduodenoscopy Hx of colonoscopy History of partial hysterectomy Family History Father Throat cancer Mother No problems noted. Brother No problems noted. Sister No problems noted. Sister No problems noted. Sister No problems noted. Sister Hyperlipidemia HTN (hypertension) Depression Myocardial infarction Daughter No problems noted. Daughter No problems noted. Daughter No problems noted. Daughter No problems noted. Other Mental health disorder Substance use disorder Social History Housing: Apartment Alcohol intake: current Alcohol intake frequency: does not drink Alcohol type: wine Patient Tobacco Use Status: Former Tobacco user Quit Date: 12 years e-Cigarette/Vaping Use: Never Used Advance Directives Date on File: 12/21/19 service: No Current occupational status: unemployed Cognitive needs: No Hearing needs: No Vision needs: No Review of Systems Const All systems reviewed & are unremarkable except as noted in HPI and below ENT Reports Normal hearing present Neuro Reports Normal hearing present, Denies Abnormal speech present and Denies Sensory deficit (Neuro) Physical Exam Const General: comfortable, no acute distress, well developed, alert and awake Eyes Pupils: Equal, round and reactive pupils present EOM: EOMs intact bilaterally Chest Chest palpation & inspection: normal inspection of the chest Resp Effort & Inspection: normal respiratory effort, able to speak in complete sentences, normal respiratory pattern, no audible wheezes and no cough Cardio Jugular venous distension: no JVD Back/Spine/Pelvis Other: Flexing forward aggravates her pain in the lower back. Coughing straining down aggravates her pain in the lower back, Valsalva maneuver aggravates her pain in the lower back. Prolong sitting aggravates her pain in the lower back. Neuro Cranial nerves: Yes Equal, round and reactive pupils present and Yes Normal hearing present Speech: No Abnormal speech present Sensory Exam: No Sensory deficit (Neuro) Psych Speech and movement: Normal speech and movement present Affect: normal affect Attitude: cooperative Results Reviewed Results Reviewed: MRI lumbar spine 01/14/2021 Trace grade 1 degenerative spondylolisthesis at L5-S1 stable in appearance. 2 mm of retrolisthesis at L2-L3 stable in appearance. Lordotic curvature is maintained. Lumbar sacral junction normal several bodies normal height. Disc spaces and endplates: Moderate disc space and height loss. Slightly progressed from previous exam at L5-S1 with disc desiccation and Schmorl nodes, similar in appearance, with some progression of anterolateral spondylosis. Mild disc space height loss at L2-L3, slightly progressed. Multilevel disc desiccation throughout the thoracolumbar spine similar to previous exam. Spinal canal: No abnormal development findings. Bone marrow: Mild type 2 and the minimal type 1 marrow signal changes along with endplates L5-S1 with improvement and type 1 marrow signal changes at this level since the previous exam. Conus terminates at L1-L2. L5-S1: Concentric disc bulging and tiny central annual fissure again noted with progression of lateral foraminal component of disc bulging since previous exam bilaterally. Moderate left-sided and [id number] right-sided facet arthropathy similar to previous study. No significant spinal canal stenosis. There is severe left-sided and [id number] right-sided neural foraminal stenosis. The stenosis progressed from previous exam with left L5 nerve root impingement. There is also right L5 nerve root impingement to a lesser degree which is also new finding. L4-5: Disc bulging is noted again. Right-sided extraforaminal foraminal disc protrusion also noted again. Slightly more prominent on current study which is abutting the exiting right L4 nerve root without nerve root compression or displacement. There is a severe right-sided and moderate left-sided facet arthropathy with ligamentum flavum thickening, similar to previous exam without significant spinal canal stenosis. Driu-kv-fuemzmtm bilateral neural foraminal narrowing was progressed. Minor annular disc bulging noted the more apparent on current study with mild flattening of the dural sac and moderate bilateral facet arthrosis with ligamentum flavum thickening similar to the previous exam with significant spinal canal or neural foraminal stenosis. L2-L3: Mild disc bulging and left retrolisthesis with mild flattening of dural sac is stable with mild facet arthropathy without significant canal or neural foraminal stenosis. L1-L2: No disc bulge or herniation and no significant facet arthrosis, canal or neural foraminal stenosis. Assessment & Plan Assessment & Plan (1) Left lumbar radiculopathy: Code(s): M54.16 - Radiculopathy, lumbar region (2) Sacroiliac joint pain: Code(s): M53.3 - Sacrococcygeal disorders, not elsewhere classified (3) Spondylosis of lumbar joint: Code(s): M47.816 - Spondylosis without myelopathy or radiculopathy, lumbar region (4) Disc degeneration, lumbar: Code(s): M51.36 - Other intervertebral disc degeneration, lumbar region (5) Radiculopathy, lumbar region: Code(s): M54.16 - Radiculopathy, lumbar region (6) Radiculopathy due to lumbar intervertebral disc disorder: Code(s): M51.16 - Intervertebral disc disorders with radiculopathy, lumbar region Plan After reviewing the MRI it appears that the pain of this patient is multifactorial it related most likely to degenerative disc disease in compression and impingement of the nerve roots as well as significant foraminal stenosis. The MRI is also significant for progressing Modic type changes at L4-5 and L5-S1 endplates. She also has spondylolisthesis spondylosis and facet arthropathy. left-sided medial branch block L2-L3 L4 does ramus L5 diagnostic 1. Resulted in no pain improvement however transforaminal epidural steroid injection L5-S1 and L4-5 on the left resulted in sustained 100% lower back pain improvement with absence of radiation into the left lower extremity. The repeat of the transforaminal epidural steroid injection resulted in minimal improvement in the pain going down the leg and no effect on axial back pain. I offered patient with consideration of Modic type changes at L4-5 and S1 vertebra is to perform intercept procedure. Brochure was given to the patient. If she wants to proceed with this intervention she will give us a call and I will schedule her for the procedure under general anesthesia. Coding Level of Care Code Est Pt Level 3 (48795) Diagnoses Left lumbar radiculopathy M54.16 Sacroiliac joint pain M53.3 Spondylosis of lumbar joint M47.816 Disc degeneration, lumbar M51.36 Radiculopathy, lumbar region M54.16 Radiculopathy due to lumbar intervertebral disc disorder M51.16
[2023-01-25 13:20] VITALS: BP 160/70; PULSE 85; RESP 16; O2SAT 97; BMI 24.1
== END 2023-01-25 13:24 | disposition home or self-care (01) ==
PROVIDERS: PCP Internal Medicine; Visit Provider Anesthesiology
DX: M54.16 Radiculopathy, lumbar region (principal); M53.3 Sacrococcygeal disorders, not elsewhere classified; M47.816 Spondylosis without myelopathy or radiculopathy, lumbar region; M51.36 Other intervertebral disc degeneration, lumbar region; M51.16 Intervertebral disc disorders with radiculopathy, lumbar region
CPT/HCPCS: 99213

== ENCOUNTER → 2023-01-25 12:59 | Outpatient (BNVA) | payer OTHER, SELFPAY | PROVIDERS: PCP Internal Medicine; Visit Provider Anesthesiology | DX: M54.16 Radiculopathy, lumbar region (principal); M53.3 Sacrococcygeal disorders, not elsewhere classified; M47.816 Spondylosis without myelopathy or radiculopathy, lumbar region; M51.36 Other intervertebral disc degeneration, lumbar region; M51.16 Intervertebral disc disorders with radiculopathy, lumbar region | CPT/HCPCS: 99212 ==

== ENCOUNTER 2023-01-26 13:23 | Outpatient (AMB) | payer OTHER, MEDICAID, SELFPAY ==
--- NOTE | 2023-01-26 13:35 | MHC.PC.OV ---
Vital Signs 01/26/23 13:37 Height 5 ft 5 in Weight 145 lb BMI 24.1 BP 130/72 Blood Pressure Location Lt brachial Position Sitting Pulse 86 Pulse Source Pulse Oximeter Pulse Oximetry (%) 100 Oxygen Delivery Method Room Air Intake Visit Reasons: Reevaluation for receiving home care Allergies prednisone Adverse Reaction (Intermediate, Verified 03/17/24 18:17) Anxiety Medication List - Last Reconciled 03/17/24 by Osiris Soni MD ascorbic acid (vitamin C) mg PO bupropion HCl 1 tab PO DAILY diclofenac sodium 1% 2 grams topical BID PRN escitalopram oxalate 10 mg PO DAILY@1300 PRN fluticasone propionate 50 mcg/actuation (Flonase Allergy Relief) 2 sprays intranasal DAILY gabapentin 1 tab PO DAILY geriatric ckrbiobt-nrqt-llab (Centravites 50 Plus tablet) 1 tab PO DAILY hydroxychloroquine 300 mg (1.5 x 200 mg) PO DAILY ketoconazole 2% 1 appl topical MOFR@0900 [Levbid ] loratadine 10 mg PO DAILY lorazepam 0.5 mg PO DAILY PRN melatonin 10 mg PO BEDTIME PRN omeprazole 20 mg PO DAILY PRN tacrolimus 0.1% 1 applic topical Q OTHER DAY terazosin 1 mg PO BEDTIME 90 days [thumb spica wear nightly & as much as possible throughout the day] triamcinolone acetonide 0.1% 1 appl topical BID PRN zolpidem 2.5 mg PO BEDTIME PRN Tobacco use date assessed: 01/26/23 Fall risk assessment: 2 + Falls in past year Last assessed Fall Risk: 01/26/23 Dental Screening Dental Screen Date: 01/26/23 Did you have a dental visit in the last 12 months?: No Was dental information given to patient?: Patient has dentist HPI Reevaluation for receiving home care HPI Details 67-year-old lady here today complaining of pain in both thumbs, mainly at the base, with also intermittent episodes of numbness and tingling in the tips of her fingers. She has difficulty holding on to things, unable to open jars or gripping her cooking utensils due to pain. She has been taking Tylenol and has been massaging diclofenac gel which has afforded only temporary relief. She has been referred by Rheumatology to occupational therapy for further evaluation and management. She is also very limited with her walking and ADLs due to chronic low back pain, with occasional radiation of pain down the back of left leg. She has lumbar degenerative disc disease with radiculopathy, currently being followed by Dr. Child for pain management. She has failed epidural steroid injections, and is considering Intercept procedure, suggested by Dr. Child. [facility] Medical History (Updated 03/17/24 @ 18:45 by Osiris Soni MD) Venous insufficiency Right carotid bruit Diverticulitis Bipolar 1 disorder GERD (gastroesophageal reflux disease) History of cervical cancer Irritable bowel syndrome with constipation Weak urinary stream Surgical menopause Osteopenia Essential hypertension Dyslipidemia Anxiety Surgical History History of cardiac cath Hx of esophagogastroduodenoscopy Hx of colonoscopy History of partial hysterectomy Family History Father Throat cancer Mother No problems noted. Brother No problems noted. Sister No problems noted. Sister No problems noted. Sister No problems noted. Sister Hyperlipidemia HTN (hypertension) Depression Myocardial infarction Daughter No problems noted. Daughter No problems noted. Daughter No problems noted. Daughter No problems noted. Paternal Aunt Rheumatoid arthritis Other Mental health disorder Substance use disorder Social History Housing: Apartment Alcohol intake: current Alcohol intake frequency: does not drink Alcohol type: wine Patient Tobacco Use Status: Former Tobacco user e-Cigarette/Vaping Use: Never Used Advance Directives Date on File: 12/21/19 service: No Current occupational status: unemployed Cognitive needs: No Hearing needs: No Vision needs: No Questionnaire Thrive Questionnaire Date Thrive assessed: 08/14/22 I am a: Patient What is your living situation today?: I have a steady place to live Within the past 12 months, did the food you bought not last and you didn't have the money to get more?: Sometimes True Within the past 12 months, did you worry whether your food would run out before you got money to buy more?: Sometimes True Do you have trouble paying for medicines?: Yes Do you have trouble getting transportation to medical appointments?: Yes Do you have trouble paying your heating and electricity bill?: Yes Do you have trouble taking care of your child, family member or friend?: No Do you have trouble with day-to-day activities such as bathing, preparing meals, shopping, managing finances, etc.?: Yes Are you currently unemployed and looking for a job?: No Are you interested in more education?: Yes GEETA-7 AMB Questionnaire GEETA-7 Date GEETA - 7 assessed: 08/14/22 Source: Developed by Drs. Howie Leavitt, Ellie Kirkpatrick, Ponce Magdaleno and colleagues, with an educational nathanael from [employer]. Review of Systems Const Reports as per HPI, Reports difficulty sleeping, Denies fatigue, Denies fever(s) and Reports poor appetite ENT Reports no additional complaints Card Denies chest pain, Denies edema and Denies irregular heart rhythm Resp Denies chest congestion and Denies cough GI Reports no additional complaints Reports no additional complaints Musc Reports back pain, Reports arthralgias, Denies joint swelling, Reports radiating pain into limb, Reports stiffness and Reports tingling Skin/Breast Denies rash Neuro Reports tingling Endo Denies fatigue Albino/Lymph Reports no additional complaints Physical exam (Primary Care) Vital Signs: Last Vital Signs Pulse 86 01/26/23 13:37 BP 130/72 01/26/23 13:37 Pulse Ox 100 01/26/23 13:37 Oxygen Delivery Method Room Air 01/26/23 13:37 BMI result Body Mass Index 24.1 Tobacco/Smoking Status: Tobacco use Status Tobacco use date assessed 01/26/23 01/26/23 13:42 Patient Tobacco Use Status Former Tobacco user 01/26/23 13:36 e-Cigarette/Vaping Use Never Used 01/26/23 13:36 Thrive Assessment: Date of Thrive Assessment Date Thrive assessed 08/14/22 01/26/23 13:36 Const Other: Alert oriented x3, no acute distress noted, ambulatory with normal gait [facility] General nose exam: Normal external nose present Mouth: Normal oral and palatal mucosa present Eyes General: appearance normal, both eyes and all related structures Neck Neck: Yes full ROM and Yes supple Resp Effort & Inspection: normal respiratory effort Auscultation: clear to auscultation bilaterally Cardio Other: S1-S2 present regular rate and rhythm GI Palpation (GI): Soft to palpation, nontender, no guarding and no masses Back/Spine/Pelvis Thoracic/Lumbar Spine: straight leg raise negative bilaterally and paraspinal muscle tenderness bilaterally in the mid lumbar and in the lower lumbar Skin General skin exam: no rashes or lesions noted Neuro General: gait normal, tone normal, moves all extremities, Normal light touch and pain sensation and no focal motor deficits Extrem Other: Positive Heberden's and Nick's nodes in fingers of both hands. Slight tenderness on palpation over CMC joint bilateral, and tenderness on palpation over the PIP joint on right middle finger. Positive Phalen sign bilateral Coding Level of Care Code Est Pt Level 3 (86550) Diagnoses Arthritis of carpometacarpal (CMC) joint of both thumbs M18.0 Radiculopathy due to lumbar intervertebral disc disorder M51.16 Primary osteoarthritis of both hands M19.041; M19.042
[2023-01-26 13:37] VITALS: BP 130/72; PULSE 86; O2SAT 100; BMI 24.1
== END 2023-01-26 15:57 | disposition home or self-care (01) ==
PROVIDERS: PCP Internal Medicine; Visit Provider Internal Medicine
DX: M18.0 Bilateral primary osteoarthritis of first carpometacarpal joints (principal); M51.16 Intervertebral disc disorders with radiculopathy, lumbar region; M19.041 Primary osteoarthritis, right hand; M19.042 Primary osteoarthritis, left hand
CPT/HCPCS: 99499

== ENCOUNTER 2023-03-01 15:20 | Outpatient (REF) | payer OTHER, SELFPAY ==
[2023-03-03 12:43] LABS: BV Int Neg Control Negative (Negative); BV Int Pos Control Positive (Positive)
== END 2023-03-01 15:21 | disposition home or self-care (01) ==
LOC: HO.LNP 15:20
PROVIDERS: Visit Provider Obstetrics & Gynecology
DX: N76.0 Acute vaginitis (principal); B96.89 Other specified bacterial agents as the cause of diseases classified elsewhere
CPT/HCPCS: 87480; 87510; 87660

== ENCOUNTER 2023-03-01 15:20 | Outpatient (AMB) | payer OTHER, SELFPAY ==
[2023-03-01 15:34] VITALS: BP 130/78
--- NOTE | 2023-03-01 15:34 | MHC.OFFVIS ---
Intake Vital Signs 03/01/23 15:34 Height 5 ft 5 in BP 130/78 Intake Visit Reasons: yeast eval Allergies No Known Allergies Allergy (Verified 01/26/23 13:37) HPI HPI Comments History of Present Illness Details Presenting complaining of vaginal discharge associated with foul odor. The patient was prescribed Diflucan day 1 day for a week ago and did not improve PFSH Medical History Neuropathy Arthritis Diverticulitis Bipolar 1 disorder GERD (gastroesophageal reflux disease) Disc degeneration, lumbar Spondylosis of lumbar joint History of cervical cancer Irritable bowel syndrome with constipation Weak urinary stream Surgical menopause Osteopenia Essential hypertension Dyslipidemia Anxiety Hip pain, left Surgical History History of cardiac cath Hx of esophagogastroduodenoscopy Hx of colonoscopy History of partial hysterectomy Family History Father Throat cancer Mother No problems noted. Brother No problems noted. Sister No problems noted. Sister No problems noted. Sister No problems noted. Sister Hyperlipidemia HTN (hypertension) Depression Myocardial infarction Daughter No problems noted. Daughter No problems noted. Daughter No problems noted. Daughter No problems noted. Other Mental health disorder Substance use disorder Social History Housing: Apartment Alcohol intake: current Alcohol intake frequency: does not drink Alcohol type: wine Patient Tobacco Use Status: Former Tobacco user Quit Date: 12 years e-Cigarette/Vaping Use: Never Used Advance Directives Date on File: 12/21/19 service: No Current occupational status: unemployed Cognitive needs: No Hearing needs: No Vision needs: No Review of Systems Const All systems reviewed & are unremarkable except as noted in HPI and below Card Reports as per HPI and Reports no additional complaints Resp Reports as per HPI and Reports no additional complaints GI Reports as per HPI and Reports no additional complaints Reports as per HPI Physical Exam Vital Signs: Last Vital Signs BP 130/78 03/01/23 15:34 Const General: cooperative, healthy appearing and comfortable General: Yes bladder normal to palpation External Female Exam: No lesion Speculum Exam - Vagina: normal appearance of the vagina, normal vaginal discharge and not erythematous Speculum Exam - Cervix: Cervix absent Bimanual exam- vagina & uterus: bladder normal to palpation and uterus absent Bimanual Exam- Adnexa, other: Other (No masses detected) Assessment & Plan Assessment & Plan (1) Bacterial vaginal infection: Code(s): N76.0 - Acute vaginitis; B96.89 - Other specified bacterial agents as the cause of diseases classified elsewhere Plan: BV panel taken. Per CDC recommendation, will screen for STI, HepBs Ag, HIV, RPR, Hep C Ab ordered. Will treat with Metrogel 0.75% one 5 g applicator intravaginally once a day for 5 days, Instructions given to the patient to refrain from sexual activity or to use condoms consistently and correctly during the BV treatment regimen, not to douch, it might increase the risk for relapse, and to call if symptoms persist or recur. Orders: Orders Hepatitis C Antibody Today B96.89 - Other specified bacterial agents as the cause of diseases classified elsewhere, N76.0 - Acute vaginitis Hepatitis B Surface Antigen Today B96.89 - Other specified bacterial agents as the cause of diseases classified elsewhere, N76.0 - Acute vaginitis Syphilis Screen Today B96.89 - Other specified bacterial agents as the cause of diseases classified elsewhere, N76.0 - Acute vaginitis HIV Ab/Ag Today B96.89 - Other specified bacterial agents as the cause of diseases classified elsewhere, N76.0 - Acute vaginitis Medications: New metronidazole 0.75%(37.5mg/5gram) 1 appful vaginal daily 70 grams 0RF 5 days Coding Level of Care Code Est Pt Level 3 (16431) Diagnoses Bacterial vaginal infection N76.0; B96.89
== END 2023-03-01 15:50 | disposition home or self-care (01) ==
LOC: HO.HWS 15:20
PROVIDERS: PCP Internal Medicine; Visit Provider Obstetrics & Gynecology
DX: N76.0 Acute vaginitis (principal); B96.89 Other specified bacterial agents as the cause of diseases classified elsewhere
CPT/HCPCS: 99213

== ENCOUNTER 2023-03-01 15:20 | Outpatient (REF) | payer OTHER, SELFPAY | END 2023-03-01 15:21 | disposition home or self-care (01) | LOC: HO.LNP 15:20 | PROVIDERS: PCP Internal Medicine; Visit Provider Obstetrics & Gynecology | DX: N76.0 Acute vaginitis (principal); B96.89 Other specified bacterial agents as the cause of diseases classified elsewhere | CPT/HCPCS: 99212 ==

== ENCOUNTER 2023-03-01 16:15 | Outpatient (REF) | payer OTHER, SELFPAY ==
[2023-03-02 03:56] LABS: Syphilis Screen Nonreactive (Nonreactive)
[2023-03-02 04:36] LABS: HIV AB/AG Nonreactive (Nonreactive); HIV Num 1 0.05 S/CO (0.00-0.99); ~Hepatitis C Antibody Nonreactive (Nonreactive)
[2023-03-02 06:02] LABS: HBsAGNum2 Reactive; HBsAGNum3 Reactive; Hepatitis B Surface Antigen Retest CNFM (Negative)
== END 2023-03-01 16:16 | disposition home or self-care (01) ==
LOC: HO.LAB 16:15
PROVIDERS: PCP Internal Medicine; Visit Provider Obstetrics & Gynecology
DX: N76.0 Acute vaginitis (principal); B96.89 Other specified bacterial agents as the cause of diseases classified elsewhere
CPT/HCPCS: 36415; 86780; 86803; 87340; 87389

== ENCOUNTER 2023-03-11 10:14 | Outpatient (AMB) | payer OTHER, SELFPAY ==
--- NOTE | 2023-03-11 10:19 | A.OFFVIS_ITS ---
Intake Intake Visit Reasons: 3m/PVR Intake Note: Patient presents for follow up recurrent uti Urology Medication: tamsulosin, estrace cream Blood Thinner: aspirin PVR: 21ml's Forensic Pathologist Required: No Accompanied by: Self / Same As Patient Allergies No Known Allergies Allergy (Verified 03/11/23 19:03) Medication List - Last Reconciled 03/11/23 by SARAH Warren- bupropion HCl 1 tab PO DAILY diclofenac sodium 1% 2 grams topical BID PRN escitalopram oxalate 10 mg PO DAILY@1300 PRN fluticasone propionate 50 mcg/actuation (Flonase Allergy Relief) 2 sprays intranasal DAILY gabapentin 1 tab PO DAILY geriatric crixjjqq-ednt-atgj (Centravites 50 Plus tablet) 1 tab PO DAILY hydroxyzine HCl 10 mg PO ketoconazole 2% 1 appl topical MOFR@0900 [Levbid ] loratadine 10 mg PO DAILY lorazepam 0.5 mg PO DAILY PRN melatonin 10 mg PO BEDTIME PRN omeprazole 20 mg PO DAILY PRN tacrolimus 0.1% 1 applic topical Q OTHER DAY tamsulosin 0.4 mg PO DAILY [thumb spica wear nightly & as much as possible throughout the day] triamcinolone acetonide 0.1% 1 appl topical BID PRN zolpidem 2.5 mg PO BEDTIME PRN HPI HPI Comments History of Present Illness Details Jessa is a pleasant 67-year-old female patient of Dr. Soni. She has a past medical history of anxiety, arthritis, bipolar, degenerative disc disease, diverticulitis, dyslipidemia, hypertension, GERD, history of cervical cancer, irritable bowel syndrome with constipation, neuropathy, osteopenia. She presents to the office today for follow-up regarding her recurrent urinary tract infections. In discussion with the patient today she reports having followed up with sausage mixer due to vaginal odor and itching and has since finished treatment for bacterial vaginosis. She currently denies any bothersome urinary issues or concerns. Previous workup has included a ret roperitoneal ultrasound noting bilateral kidneys with no lesions and or hydronephrosis noted. Left kidney with probable 1 by 8 x 9 mm peripelvic cyst in the upper pole. No imaging follow-up recommended per radiology report. The bladder is well distended. Bladder wall upper normal in thickness measuring 4 mm. No stone or masses visualized. Pre void bladder volume is approximately 400 mL. Postvoid bladder volume is approximately 150 mL. In office urinalysis results reviewed with the patient today. PVR 21mls. When asked she reports compliance with Estrace cream as prescribed. She currently denies any bothersome urinary symptoms. She otherwise offers no issues or concerns at this time. [facility] Medical History Neuropathy Arthritis Diverticulitis Bipolar 1 disorder GERD (gastroesophageal reflux disease) Disc degeneration, lumbar Spondylosis of lumbar joint History of cervical cancer Irritable bowel syndrome with constipation Weak urinary stream Surgical menopause Osteopenia Essential hypertension Dyslipidemia Anxiety Hip pain, left Surgical History History of cardiac cath Hx of esophagogastroduodenoscopy Hx of colonoscopy History of partial hysterectomy Family History Father Throat cancer Mother No problems noted. Brother No problems noted. Sister No problems noted. Sister No problems noted. Sister No problems noted. Sister Hyperlipidemia HTN (hypertension) Depression Myocardial infarction Daughter No problems noted. Daughter No problems noted. Daughter No problems noted. Daughter No problems noted. Other Mental health disorder Substance use disorder Social History Housing: Apartment Alcohol intake: current Alcohol intake frequency: does not drink Alcohol type: wine Patient Tobacco Use Status: Former Tobacco user Quit Date: 12 years e-Cigarette/Vaping Use: Never Used Advance Directives Date on File: 12/21/19 service: No Current occupational status: unemployed Cognitive needs: No Hearing needs: No Vision needs: No Review of Systems Const Reports as per HPI Eyes Reports no additional complaints ENT Reports no additional complaints Card Reports as per HPI Resp Reports no additional complaints GI Reports as per HPI Reports as per HPI Musc Reports as per HPI Neuro Reports as per HPI Psych Reports as per HPI Albino/Lymph Reports no additional complaints Aller/Immun Reports no additional complaints Physical Exam Const General: cooperative, healthy appearing, comfortable, no acute distress, well developed, alert and awake Nutritional Appearance: average body habitus Orientation/consciousness: patient oriented x3 Limitations: no limitations HEENT Head: Yes normal to inspection, Yes normocephalic and Yes atraumatic Ears: hearing grossly normal bilaterally Eyes General: appearance normal, both eyes and all related structures Neck Neck: Yes normal visual inspection and Yes trachea midline Chest Chest palpation & inspection: normal inspection of the chest Resp Effort & Inspection: normal respiratory effort and able to speak in complete sentences Cardio Rate: regular rate GI Inspection: Yes normal to inspection General: Yes no CVA tenderness Back/Spine/Pelvis Back: no CVA tenderness Skin General skin exam: no rashes or lesions noted Neuro General: patient oriented x3 Extrem General: Yes normal to inspection Psych Appearance: grossly normal and well kempt Mental Status: mental status grossly normal Speech and movement: Normal speech and movement present and Clear speech present Affect: normal affect Attitude: cooperative Thought process: Normal thought process present Thought content: Normal thought content present Insight: Fair insight present (Psych) Judgement: Fair judgement present (Psych) Office Procedures Post Void Residual Post Residual Void Post Void Residual (PVR): 58534-[id number] Void Residual by ultrasound Results AMB Urinalysis, Automated UA Leukoctes 0 Alexander/uL Last Edit by [employer] on 03/11/23 11:04 UA Nitrite Negative Last Edit by [employer] on 03/11/23 11:04 UA Urobilinogen 0.2 mg/dL Last Edit by [employer] on 03/11/23 11:04 UA Protein 0 mg/dL Last Edit by [employer] on 03/11/23 11:04 UA pH 6.5 Last Edit by [employer] on 03/11/23 11:04 UA Blood 0 Sivakumar/uL Last Edit by [facility] [employer] on 03/11/23 11:04 UA Specific [place] 1.005 Last Edit by [employer] on 03/11/23 11:04 UA Ketone Negative Last Edit by [employer] [facility] on 03/11/23 11:04 UA Bilirubin 0 mg/dL Last Edit by [employer] on 03/11/23 11:04 UA Glucose 0 mg/dL Last Edit by [employer] on 03/11/23 11:04 Results Reviewed Results Reviewed: Laboratory Last Values Urine pH (Auto) 6.5 03/11/23 11:03 Specific [place] (Auto) 1.005 03/11/23 11:03 Urine Protein (Auto) 0 mg/dL 03/11/23 11:03 Glucose (UA)(Auto) 0 mg/dL 03/11/23 11:03 Urine Ketones (Auto) Negative 03/11/23 11:03 Urine Blood (Auto) 0 Sivakumar/uL 03/11/23 11:03 Urine Nitrite (Auto) Negative 03/11/23 11:03 Urine Bilirubin (Auto) 0 mg/dL 03/11/23 11:03 Urine Urobilinogen (Auto) 0.2 mg/dL 03/11/23 11:03 Leukocyte Esterase (Auto) 0 Alexander/uL 03/11/23 11:03 Assessment & Plan Assessment & Plan (1) Incomplete bladder emptying: Code(s): R33.9 - Retention of urine, unspecified (2) Recurrent UTI (urinary tract infection): Code(s): N39.0 - Urinary tract infection, site not specified Plan In office urinalysis results reviewed with the patient today. PVR 21mLs Continue Estrace cream as discussed and prescribed Patient denies any bothersome urinary issues at this time. Discussed UTI prevention with D mannose supplement, vitamin-C, increasing fluid intake, behavioral therapy with timed voiding, perineal hygiene and postcoital voiding, and management of constipation with stool softeners and increased fiber intake Follow-up in 3 months with PVR; or sooner with any issues, concerns, and or questions. Orders: Orders AMB Post Void Residual by ultrasound Today N39.0 - Urinary tract infection, site not specified AMB Urinalysis Automated Today Z13.9 - Encounter for screening, unspecified Coding Level of Care Code Est Pt Level 3 (45822) Diagnoses Incomplete bladder emptying R33.9 Recurrent UTI (urinary tract infection) N39.0 CPT Codes Post Residual Void - PVR CPT Code: 62030-Arbq Void Residual by ultrasound ([id number])
== END 2023-03-11 10:55 | disposition home or self-care (01) ==
PROVIDERS: PCP Internal Medicine; Visit Provider Nurse Practitioner Family
DX: R33.9 Retention of urine, unspecified (principal); N39.0 Urinary tract infection, site not specified; Z13.9 Encounter for screening, unspecified
CPT/HCPCS: 99213

== ENCOUNTER → 2023-03-11 10:14 | Outpatient (BNVA) | payer OTHER, SELFPAY | PROVIDERS: PCP Internal Medicine; Visit Provider Nurse Practitioner Family | DX: R33.9 Retention of urine, unspecified (principal); N39.0 Urinary tract infection, site not specified | CPT/HCPCS: 51798; 81003; 99212 ==

== ENCOUNTER 2023-03-12 11:00 | Outpatient (RCR) | payer OTHER, MEDICAID, SELFPAY ==
--- NOTE | 2023-01-13 14:09 | MHC.OT.OEV ---
[address] [phone] F: [phone] Occupational Therapy Evaluation Patient Name: Jessa Minor Diagnosis: B/L OA Attending Provider: Dr Anh Gerardo Prescribed Treatment: Eval and Treat History of Current Condition: 67 yo female w/ hx of OA in elbows, knees, hips, hands, feet, presents to OT from rheumatology for further assessment and management. Significant Medical History: Back pain Precautions/Contraindications: (+) SKIN SENSITIVITY TO TAPE/ ADHESIVES Patient Goals: Decrease hand pain Hand Dominance: Right QuickDASH Score: 95 Prior Level of Function and Occupation Self Care, Employment, Leisure: Retired, enjoys walking around/window shopping Living Situation, Family and/or Social Support: Lives w/ boyfriend (works out of home), family lives nearby Current Level of Function and Occupation Self Care, Employment, Leisure: Difficulty grabbing objects, opening cans/containers, difficulty gripping cooking utensils Sleep: Difficulty sleeping in general w/ insomnia Driving: Occasional if needed Vision: WFL Balance: WFL Pain Assessment Pain Score: 4 Pain Scale Used: Numeric (0 - 10) Pain Location and Description: Multiple MCPs B/L hands, tender to PIPs Aggravating Factors: Heavy use Alleviating Factors: Cold packs Skin and Soft Tissue Assessment Skin and Soft Tissue: Comments: Grossly WNL Nerve assessment Ulnar Nerve: WFL Median Nerve: WFL Radial Nerve: WFL Comments: Sensory Assessment Temperature: Light Touch: Proprioception: Vibration: Comments: Pt reports tingling through all digit tips and thumbs, left > right Intact light tough and localization B/L'ly, [place] Shelly 3.61 throughout Edema Assessment Upper Extremity: Lower Extremity: Comments: WNL Dexterity Assessment Dexterity: Comments: Nine Hole Peg Right 28 sec Left 28 sec Special Tests Comments: (+) Phalen's B/L'ly AROM(PROM) Strength Cervical Cervical Flexion: Cervical Extension: Cervical Lateral Flexion: Cervical Rotation: Comments: WFL Shoulder Flexion: Extension: Abduction: Internal Rotation: External Rotation: Comments: WFL Flexion: Extension: Abduction: Internal Rotation: External Rotation: Comments: Elbow Flexion: Extension: Pronation: Supination: Comments: WFL Flexion: Extension: Pronation: Supination: Comments: Wrist Flexion: Extension: Ulnar Deviation: Radial Deviation: Comments: WFL Flexion: Extension: Ulnar Deviation: Radial Deviation: Comments: Thumb Thumb CMC Flexion: Thumb MCP Flexion: Thumb IP Flexion: Radial Abduction: Palmar Abduction: [place] (Kapandji 0-10): Comments: WFL Digits Index MCP: PIP: DIP: Long MCP: PIP: DIP: Ring MCP: PIP: DIP: Small MCP: PIP: DIP: Comments: WFL Gross Grasp: R 26 L 25 Lateral Pinch: R 6 L 6 Two-Point Pinch: Three-Jaw Rodrigo: Comments: Patient Education Primary Language: Mongolian Spud Sorter Required: No Current Knowledge: Understands information with skills for self-management Teaching Method: Demonstration Handouts Verbal Education Needs Identified on Evaluation: ADL's Disease Information Equipment Use Exercise Pain Safety How did patient/family demonstrate learning? Patient demonstrates Patient verbalizes Barriers to Learning: None Readiness for Learning: Accepting Who was educated? Patient Comments: Plan of Care Assessment: 67 yo female w/ hx of OA, presents to OT w/ B/L hand pain and numbness/tingling. She reports having EMG in the past and hand x-rays. She is mostly Ind w/ self care tasks at home, but unable to do heavier lifting and gripping, also dropping objects and difficulty manipulating objects like buttons and containers. On assessment, range is grossly WFL, strength is weakened w/ B/L gross grasp ~25lb each and she has diminished light touch, although functional w/ [place] Shelly 3.61 B/L hands. She is familiar w/ exercises for digit ROM and tendon glides but will benefit from brief course of OT to progress functional strengthening w/ focus on activity modification, joint protection and pain management for OA. STG Duration: 3 weeks Short Term Goals: Ind w/ B/L nighttime resting wrist orthosis wear for CTS Ind w/ tendon and median nerve glides Ind w/ hand strengthening exercises while being mindful to minimize repetitive ratoprinter in protection of CTS Good follow through w/ proper positioning of thumb CMc for basic pinches and sole dyer Pt to report ease w/ daily activities w/ modifications for grasp, adaptive equip, etc LTG Duration: Fpc Goals: same as above Frequency and Duration: The patient will be seen 2x/wk for 3 weeks Treatment Plan: Therapeutic Exercise Therapeutic Activity Home Exercise Program Splinting Patient Education ADL Training Paraffin Fluidotherapy MHP Cold Packs Joint Mobilization Soft Tissue Mobilization Kinesiotaping Electronically Signed By: Silva Topete OTR/Jimena CONKLINT Reviewed/agree with student documentation: Therapist: Please sign and return to therapist, Thank you for your referral.
--- NOTE | 2023-03-12 12:08 | MHC.OT.DC ---
[address] [phone] F: [phone] Occupational Therapy Discharge Note Patient Name: Jessa Minor Provider: Anh Gerardo Diagnosis: B/L OA Date of Surgery: Date of Evaluation: 01/13/23 Date of Discharge: 03/12/23 Treatments to Date: 8 Cancellations to Date: No Shows to Date: Discharge Status: Achieved Goals Improved Function Independent with HEP Discharge Summary: Patient is d/c'd from skilled occupational therapy services as she has achieved all of her goals. She is (I) in home exercise program and management. Patient reported she has a an appointment scheduled for next week with her physician. Patient was a pleasure to work with. Thank you for your referral. Electronically Signed By: CHITO Gan/Jimena, CLT Reviewed/agree with student documentation: Yes Therapist: CHITO Ivey/Jimena CHT Please Sign and return to therapist, thank you for your referral.
== END 2023-03-19 14:25 | disposition home or self-care (01) ==
LOC: HO.OT 11:00
PROVIDERS: PCP Internal Medicine; Visit Provider Student in an Organized Health Care Education/Training Program
DX: M19.041 Primary osteoarthritis, right hand (principal); M19.042 Primary osteoarthritis, left hand
CPT/HCPCS: 97018; 97110; 97140; 97165

== ENCOUNTER → 2023-05-10 13:00 | Outpatient (BNV) | payer OTHER, SELFPAY | PROVIDERS: PCP Internal Medicine; Visit Provider Radiology Diagnostic Radiology | DX: Z12.31 Encounter for screening mammogram for malignant neoplasm of breast (principal) | CPT/HCPCS: 77063; 77067 ==

== ENCOUNTER 2023-05-10 13:02 | Outpatient (REF) | payer OTHER, SELFPAY | END 2023-05-10 13:03 | disposition home or self-care (01) | LOC: HO.MAMMO 13:02 | PROVIDERS: PCP Internal Medicine; Visit Provider Internal Medicine | DX: Z12.31 Encounter for screening mammogram for malignant neoplasm of breast (principal) | CPT/HCPCS: 77063; 77067 ==

== ENCOUNTER 2023-05-13 13:48 | Outpatient (AMB) | payer OTHER, SELFPAY ==
[2023-05-13 13:58] VITALS: BMI 23.8
--- NOTE | 2023-05-13 13:58 | MHC.OFFVIS ---
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 No complaints. Last Pap/HPV was negative in 12/01, no history of abnormal Pap smear last 25 years Last Mammogram was done on 05/10/2023, the report is not available yet Last Colonoscopy was 5 years ago, the patient is in the process of scheduling her next screening colonoscopy dyspnea Last DEXA scan showed osteopenia and low FRAX risk in 06/03 [facility] Medical History Neuropathy Arthritis Diverticulitis Bipolar 1 disorder GERD (gastroesophageal reflux disease) Disc degeneration, lumbar Spondylosis of lumbar joint History of cervical cancer Irritable bowel syndrome with constipation Weak urinary stream Surgical menopause Osteopenia Essential hypertension Dyslipidemia Anxiety Hip pain, left Surgical History History of cardiac cath Hx of esophagogastroduodenoscopy Hx of colonoscopy History of partial hysterectomy Family History Father Throat cancer Mother No problems noted. Brother No problems noted. Sister No problems noted. Sister No problems noted. Sister No problems noted. Sister Hyperlipidemia HTN (hypertension) Depression Myocardial infarction Daughter No problems noted. Daughter No problems noted. Daughter No problems noted. Daughter No problems noted. Other Mental health disorder Substance use disorder Social History Housing: Apartment Alcohol intake: current Alcohol intake frequency: does not drink Alcohol type: wine Patient Tobacco Use Status: Former Tobacco user Quit Date: 12 years e-Cigarette/Vaping Use: Never Used Advance Directives Date on File: 12/21/19 service: No Current occupational status: unemployed Cognitive needs: No Hearing needs: No Vision needs: No Female Reproductive History Menstrual Menopause type: natural Total pregnancies: 5 Full term: 4 Number of Living Children: 3 Ab spontaneous: 1 Date of last pap smear: 11/02/18 Date of Mammogram: 05/10/23 Review of Systems Const All systems reviewed & are unremarkable except as noted in HPI and below Card Reports as per HPI and Reports no additional complaints Resp Reports as per HPI and Reports no additional complaints GI Reports as per HPI and Reports no additional complaints Reports as per HPI Physical Exam Vital Signs: BMI result Body Mass Index 23.8 Const General: cooperative, healthy appearing and comfortable General: Yes bladder normal to palpation External Female Exam: No lesion Speculum Exam - Vagina: normal appearance of the vagina, normal vaginal discharge and not erythematous Speculum Exam - Cervix: Cervix absent Bimanual exam- vagina & uterus: bladder normal to palpation and uterus absent Bimanual Exam- Adnexa, other: Other (No masses detected) Assessment & Plan Assessment & Plan (1) Well woman exam: Code(s): Z01.419 - Encounter for gynecological examination (general) (routine) without abnormal findings Plan: Co testing not indicated since the patient 's age is above 65 with no history of abnormal Pap smears last 25 years. Counseled the patient about the recommended dietary allowance of 1200 mg of Calcium & 800 IU of vitamin D. Instructions given the patient to schedule next screening Mammogram in 05/09. The patient is in the process schedule her next screening colonoscopy . Will order DEXA scan . The patient was instructed to perform monthly self-breast exams and to schedule a 2 week DEXA scan follow-up appointment and an annual exam in a year; All questions answered and the patient verbalized understanding. Orders: Orders XR DEXA axial skeleton Today Z78.0 - Asymptomatic menopausal state Coding Level of Care Code Est Pt Prev Care >65y(39206) Diagnoses Well woman exam Z01.419
== END 2023-05-13 14:33 | disposition home or self-care (01) ==
LOC: HO.HWS 13:49
PROVIDERS: PCP Internal Medicine; Visit Provider Obstetrics & Gynecology
DX: Z01.419 Encounter for gynecological examination (general) (routine) without abnormal findings (principal)
CPT/HCPCS: 99397

== ENCOUNTER → 2023-05-13 13:48 | Outpatient (BNVA) | payer OTHER, SELFPAY | PROVIDERS: PCP Internal Medicine; Visit Provider Obstetrics & Gynecology ==

== ENCOUNTER 2023-06-14 14:20 | Outpatient (AMB) | payer OTHER, SELFPAY ==
--- NOTE | 2023-06-14 14:23 | MHC.OFFVIS ---
Intake Intake Visit Reasons: Follow up with PVR Intake Note: Patient presents for follow up recurrent uti Urology Medication: tamsulosin, estrace cream Blood Thinner: none PVR: 22ml's Loaf Counter Required: No Accompanied by: Self / Same As Patient Allergies No Known Allergies Allergy (Verified 06/14/23 15:04) Medication List - Last Reconciled 06/14/23 by SARAH Warren- bupropion HCl 1 tab PO DAILY diclofenac sodium 1% 2 grams topical BID PRN escitalopram oxalate 10 mg PO DAILY@1300 PRN fluticasone propionate 50 mcg/actuation (Flonase Allergy Relief) 2 sprays intranasal DAILY gabapentin 1 tab PO DAILY geriatric srotignc-myiu-tlji (Centravites 50 Plus tablet) 1 tab PO DAILY hydroxyzine HCl 10 mg PO ketoconazole 2% 1 appl topical MOFR@0900 [Levbid ] loratadine 10 mg PO DAILY lorazepam 0.5 mg PO DAILY PRN melatonin 10 mg PO BEDTIME PRN omeprazole 20 mg PO DAILY PRN tacrolimus 0.1% 1 applic topical Q OTHER DAY tamsulosin 0.4 mg PO BEDTIME 90 days [thumb spica wear nightly & as much as possible throughout the day] triamcinolone acetonide 0.1% 1 appl topical BID PRN zolpidem 2.5 mg PO BEDTIME PRN HPI HPI Comments History of Present Illness Details Jessa is a pleasant 67-year-old female patient of Dr. Soni. She has a past medical history of anxiety, arthritis, bipolar, degenerative disc disease, diverticulitis, dyslipidemia, hypertension, GERD, history of cervical cancer, irritable bowel syndrome with constipation, neuropathy, osteopenia. She presents to the office today for follow-up regarding her recurrent urinary tract infections. In discussion with the patient today she reports to be doing and feeling well. She reports having come back from vacation recently as she was in [place] and then [place] visiting her family. She currently denies any bothersome urinary issues or concerns. She reports compliance with Estrace cream 3 times per week as prescribed. In office urinalysis results reviewed with the patient today. PVR 0 mL. Previous workup has included a retroperitoneal ultrasound noting bilateral kidneys with no lesions and or hydronephrosis noted. Left kidney with probable 1 by 8 x 9 mm peripelvic cyst in the upper pole. No imaging follow-up recommended per radiology report. The bladder is well distended. Bladder wall upper normal in thickness measuring 4 mm. No stone or masses visualized. Pre void bladder volume is approximately 400 mL. Postvoid bladder volume is approximately 150 mL. In office urinalysis results reviewed with the patient today. When asked she denies urinary urgency, urinary frequency, incontinence, nocturia, hematuria, dysuria, foul smelling urine, changes to urinary stream, flank pain, fever, and or chills. She is happy with her current voiding parameters. She otherwise offers no other issues or concerns at this time. [facility] Medical History (Reviewed 06/14/23 @ 16:15 by ERICA [facility]) Neuropathy Arthritis Diverticulitis Bipolar 1 disorder GERD (gastroesophageal reflux disease) Disc degeneration, lumbar Spondylosis of lumbar joint History of cervical cancer Irritable bowel syndrome with constipation Weak urinary stream Surgical menopause Osteopenia Essential hypertension Dyslipidemia Anxiety Hip pain, left Surgical History History of cardiac cath Hx of esophagogastroduodenoscopy Hx of colonoscopy History of partial hysterectomy Family History Father Throat cancer Mother No problems noted. Brother No problems noted. Sister No problems noted. Sister No problems noted. Sister No problems noted. Sister Hyperlipidemia HTN (hypertension) Depression Myocardial infarction Daughter No problems noted. Daughter No problems noted. Daughter No problems noted. Daughter No problems noted. Other Mental health disorder Substance use disorder Social History Housing: Apartment Alcohol intake: current Alcohol intake frequency: does not drink Alcohol type: wine Patient Tobacco Use Status: Former Tobacco user Quit Date: 12 years e-Cigarette/Vaping Use: Never Used Advance Directives Date on File: 12/21/19 service: No Current occupational status: unemployed Cognitive needs: No Hearing needs: No Vision needs: No Review of Systems Const Reports as per HPI Eyes Reports no additional complaints ENT Reports no additional complaints Card Reports as per HPI Resp Reports no additional complaints GI Reports as per HPI Reports as per HPI Musc Reports as per HPI Neuro Reports as per HPI Psych Reports as per HPI Albino/Lymph Reports no additional complaints Aller/Immun Reports no additional complaints Physical Exam Const General: cooperative, healthy appearing, comfortable, no acute distress, well developed, alert and awake Nutritional Appearance: average body habitus Orientation/consciousness: patient oriented x3 Limitations: no limitations HEENT Head: Yes normal to inspection, Yes normocephalic and Yes atraumatic Ears: hearing grossly normal bilaterally Eyes General: appearance normal, both eyes and all related structures Neck Neck: Yes normal visual inspection and Yes trachea midline Chest Chest palpation & inspection: normal inspection of the chest Resp Effort & Inspection: normal respiratory effort and able to speak in complete sentences Cardio Rate: regular rate GI Inspection: Yes normal to inspection General: Yes no CVA tenderness Back/Spine/Pelvis Back: no CVA tenderness Skin General skin exam: no rashes or lesions noted Neuro General: patient oriented x3 Extrem General: Yes normal to inspection Psych Appearance: grossly normal and well kempt Mental Status: mental status grossly normal Speech and movement: Normal speech and movement present and Clear speech present Affect: normal affect Attitude: cooperative Thought process: Normal thought process present Thought content: Normal thought content present Insight: Fair insight present (Psych) Judgement: Fair judgement present (Psych) Office Procedures Post Void Residual Post Residual Void Post Void Residual (PVR): 22 [id number] Void Residual by ultrasound Results AMB Urinalysis, Automated UA Leukoctes 0 Alexander/uL Last Edit by [employer] on 06/14/23 14:40 UA Nitrite Negative Last Edit by [employer] on 06/14/23 14:40 UA Urobilinogen 0.2 mg/dL Last Edit by [employer] on 06/14/23 14:40 UA Protein 0 mg/dL Last Edit by [employer] on 06/14/23 14:40 UA pH 6.0 Last Edit by [employer] on 06/14/23 14:40 UA Blood 0 Sivakumar/uL Last Edit by [employer] on 06/14/23 14:40 UA Specific [place] 1.005 Last Edit by [employer] on 06/14/23 14:40 UA Ketone Negative Last Edit by [employer] on 06/14/23 14:40 UA Bilirubin 0 mg/dL Last Edit by [employer] on 06/14/23 14:40 UA Glucose 0 mg/dL Last Edit by [employer] on 06/14/23 14:40 Results Reviewed Results Reviewed: Laboratory Last Values Urine pH (Auto) 6.0 06/14/23 14:30 Specific [place] (Auto) 1.005 06/14/23 14:30 Urine Protein (Auto) 0 mg/dL 06/14/23 14:30 Glucose (UA)(Auto) 0 mg/dL 06/14/23 14:30 Urine Ketones (Auto) Negative 06/14/23 14:30 Urine Blood (Auto) 0 Sivakumar/uL 06/14/23 14:30 Urine Nitrite (Auto) Negative 06/14/23 14:30 Urine Bilirubin (Auto) 0 mg/dL 06/14/23 14:30 Urine Urobilinogen (Auto) 0.2 mg/dL 06/14/23 14:30 Leukocyte Esterase (Auto) 0 Alexander/uL 06/14/23 14:30 Assessment & Plan Assessment & Plan (1) Lower urinary tract symptoms: Code(s): R39.9 - Unspecified symptoms and signs involving the genitourinary system (2) Recurrent UTI (urinary tract infection): Code(s): N39.0 - Urinary tract infection, site not specified Plan In office urinalysis results reviewed with the patient today; as noted above PVR 0 mL. Continue Estrace cream as discussed and prescribed Patient denies any bothersome urinary issues at this time. Patient denies any UTI like symptoms. She is happy with her current voiding parameters. Discussed UTI prevention with D mannose supplement, vitamin-C, increasing fluid intake, behavioral therapy with timed voiding, perineal hygiene and postcoital voiding, and management of constipation with stool softeners and increased fiber intake Follow-up in 6 months with PVR; or sooner with any issues, concerns, and or questions. Orders: Orders AMB Urinalysis Automated Today Z13.9 - Encounter for screening, unspecified AMB Post Void Residual by ultrasound Today R39.9 - Unspecified symptoms and signs involving the genitourinary system Patient Instructions: The patient had an opportunity to ask questions regarding the treatment plan. All questions were answered. Physical exam, labs, and imaging were discussed and reviewed in detail. As well as risks, benefits, and discussion of treatment choices. No major barriers to understanding were identified. The patient expressed understanding and agreement with the above treatment plan. The patient was made aware they should contact our office by phone for worsening of their current condition, the appearance of new symptoms, or with any questions or concerns. Compliance is encouraged with any medications and follow up testing that is ordered. It is a privilege to be allowed the opportunity to participate in? your urological care.? Again, if you have any questions or concerns If you have any questions or concerns please do not hesitate to contact me. The office is [phone]. This note is constructed using voice recognition software. While every effort has been made to ensure accuracy gas plant specialist errors may have been included. Yours sincerely, SARAH Warren-FRANSISCO Coding Level of Care Code Est Pt Level 3 (51525) Diagnoses Lower urinary tract symptoms R39.9 Recurrent UTI (urinary tract infection) N39.0 CPT Codes Post Residual Void - PVR CPT Code: 50116-Khsb Void Residual by ultrasound ([id number])
== END 2023-06-14 15:00 | disposition home or self-care (01) ==
PROVIDERS: PCP Internal Medicine; Visit Provider Nurse Practitioner Family
DX: R39.9 Unspecified symptoms and signs involving the genitourinary system (principal); N39.0 Urinary tract infection, site not specified; Z13.9 Encounter for screening, unspecified
CPT/HCPCS: 99213

== ENCOUNTER → 2023-06-14 14:20 | Outpatient (BNVA) | payer OTHER, SELFPAY | PROVIDERS: PCP Internal Medicine; Visit Provider Nurse Practitioner Family | DX: N39.0 Urinary tract infection, site not specified (principal); R39.9 Unspecified symptoms and signs involving the genitourinary system; Z79.899 Other long term (current) drug therapy | CPT/HCPCS: 51798; 81003; 99212 ==

== ENCOUNTER 2023-06-15 13:16 | Outpatient (REF) | payer OTHER, SELFPAY ==
--- NOTE | ~2023-06-15 | MM_ITS ---
EXAMINATION: BONE DENSITOMETRY CLINICAL INDICATION: Asymptomatic menopausal state. COMPARISON: Previous BD dated 05/20/2021 and baseline BD dated 06/03/2012. TECHNIQUE: Using a [employer] DXA System (software version: 13.1) manufactured by [employer], dual-energy x-ray absorptiometry was performed of the lumbar spine and left hip. The images are of good technical quality. Summary results are attached. FINDINGS: LEFT FEMUR, NECK: Current: BMD 0.861 g/cm2, Z-score 0.2, T-score -1.3, osteopenia. Prior: BMD 0.840 g/cm2. Baseline: BMD 0.842 g/cm2. LEFT FEMUR, TOTAL: Current: BMD 0.848 g/cm2, Z-score 0.0, T-score -1.3, osteopenia, 3.5% decrease from previous, 8.6% from baseline (<5% change is not significant). Prior: BMD 0.879 g/cm2. Baseline: BMD 0.928 g/cm2. AP SPINE L1-L2 (excluding L3 and L4): The data of L1-L4 has been changed to exclude the L3 and L4 vertebral bodies, because degenerative sclerosis at these levels may cause overestimation of lumbar spine density. Current: BMD 1.007 g/cm2, Z-score 0.1, T-score -1.3, osteopenia, 0.7% increase from previous, 4.3% decrease from baseline (<5% change is not significant). Prior: BMD 1.000 g/cm2. Baseline: BMD 1.052 g/cm2. IDENTIFIED RISK FACTORS: Early menopause, secondary osteoporosis, hysterectomy, anticonvulsant. HISTORY OF FRACTURE: None listed. MEDICATIONS: Calcium supplements or multivitamin, vitamin D. MM/XR DEXA axial skeleton IMPRESSION: 1. DIAGNOSIS: Osteopenia based on the lowest T-score value of -1.3 in the femoral neck, total femur, lumbar spine applying World Health Organization criteria. 2. 10-YEAR FRACTURE RISK PREDICTION, FRAX: Major osteoporotic fracture (clinical spine, forearm, hip or shoulder) 5.2%. Hip fracture 0.6%. 3. Treatment Recommendations: NOF guidelines recommend consideration for treatment in postmenopausal women and men age 50 and older presenting with the following: -A hip or vertebral (clinical or morphometric) fracture. -T-score less than or equal to -2.5 at the femoral neck or spine after appropriate evaluation to exclude secondary causes. -Low bone mass at the hip or spine and a 10-year fracture probability by FRAX of greater than or equal to 3% for hip fracture or greater than or equal to 20% for major osteoporotic fracture based on the [place] adapted WHO algorithm. 4. Other Recommendations: All treatment decisions require clinical judgment and consideration of individual patient factors, including patient preferences, comorbidities, previous drug use, risk factors not captured in the FRAX model (e.g. frailty, falls, vitamin D deficiency, increased bone turnover, interval significant decline in bone density) and possible under or overestimation of fracture risk by FRAX. Additional medical evaluation for secondary cause of low bone mineral density may be appropriate. FUTURE SCAN RECOMMENDATION: People with diagnosed cases of osteoporosis or at high risk for fracture should have regular bone mineral density tests. For patients eligible for Medicare, routine testing is allowed once every 2 years. The testing frequency can be increased to one year for patients who have rapidly progressing disease, those who are receiving or discontinuing medical therapy to restore bone mass, or have additional risk factors.
== END 2023-06-15 13:17 | disposition home or self-care (01) ==
LOC: HO.MAMMO 13:16
PROVIDERS: PCP Internal Medicine; Visit Provider Obstetrics & Gynecology
DX: Z13.820 Encounter for screening for osteoporosis (principal); Z78.0 Asymptomatic menopausal state
CPT/HCPCS: 77080

== ENCOUNTER 2023-07-05 12:46 | Outpatient (AMB) | payer OTHER, SELFPAY ==
--- NOTE | 2023-07-05 13:00 | A.OFFVIS_ITS ---
Vital Signs 07/05/23 13:01 Height 5 ft 5 in Intake Visit Reasons: DEXA follow up Allergies No Known Allergies Allergy (Verified 07/05/23 13:00) HPI Comments Details: The patient is presenting for follow up regarding DEXA scan results. T score @ spine and femoral Neck respectively were=-1.3/-1.3 and 10 year FRAX risk = 5.2/0.6% for severe osteoporosis and fracture. PFS Medical History Neuropathy Arthritis Diverticulitis Bipolar 1 disorder GERD (gastroesophageal reflux disease) Disc degeneration, lumbar Spondylosis of lumbar joint History of cervical cancer Irritable bowel syndrome with constipation Weak urinary stream Surgical menopause Osteopenia Essential hypertension Dyslipidemia Anxiety Hip pain, left Surgical History History of cardiac cath Hx of esophagogastroduodenoscopy Hx of colonoscopy History of partial hysterectomy Family History Father Throat cancer Mother No problems noted. Brother No problems noted. Sister No problems noted. Sister No problems noted. Sister No problems noted. Sister Hyperlipidemia HTN (hypertension) Depression Myocardial infarction Daughter No problems noted. Daughter No problems noted. Daughter No problems noted. Daughter No problems noted. Other Mental health disorder Substance use disorder Social History Housing: Apartment Alcohol intake: current Alcohol intake frequency: does not drink Alcohol type: wine Patient Tobacco Use Status: Former Tobacco user Quit Date: 12 years e-Cigarette/Vaping Use: Never Used Advance Directives Date on File: 12/21/19 service: No Current occupational status: unemployed Cognitive needs: No Hearing needs: No Vision needs: No Review of Systems Const All systems reviewed & are unremarkable except as noted in HPI and below Reports as per HPI and Reports no additional complaints GI Reports no additional complaints Reports no additional complaints Assessment & Plan Assessment & Plan (1) Osteopenia: Code(s): M85.80 - Other specified disorders of bone density and structure, unspecified site Category: Medical Qualifiers: Osteopenia location: multiple sites Qualified Code(s): M85.89 - Other specified disorders of bone density and structure, multiple sites Plan: Discussed with the patient the DEXA results and FRAX risk. FRAX risk and T score showed no evidence of osteoporosis. Discussed with the patient all the options for osteoporosis prevention including lifestyle modifications including Ca+D supplements 1200 mg po qd/800 MIU, Weight bearing exercises and proteine sup plements. The patient verbalized understanding and agreed plan will repeat DEXA in 2 years.
== END 2023-07-05 13:37 | disposition home or self-care (01) ==
LOC: HO.HWS 12:46
PROVIDERS: PCP Internal Medicine; Visit Provider Obstetrics & Gynecology
DX: M85.89 Other specified disorders of bone density and structure, multiple sites (principal)
CPT/HCPCS: 99213

== ENCOUNTER → 2023-07-05 12:46 | Outpatient (BNVA) | payer OTHER, SELFPAY | PROVIDERS: PCP Internal Medicine; Visit Provider Obstetrics & Gynecology | DX: M85.89 Other specified disorders of bone density and structure, multiple sites (principal) | CPT/HCPCS: 99212 ==

== ENCOUNTER 2023-07-12 15:00 | Outpatient (REF) | payer OTHER, SELFPAY ==
[2023-07-12 16:30] LABS: MANUAL DIFF FLAG NO
[2023-07-12 18:30] LABS: Appearance Urine Clear; Color Urine Yellow; Glucose Urine UA Negative (Negative); Leukocyte Esterase Urine Large (3+) (Negative); Nitrite Urine Negative (Negative); PH 7.5 (5.0-9.0); Specific Gravity - Urine <= 1.005 (1.005-1.025); UMIC TRIGGER UA YES; Urine Blood Negative (Negative); Urine Ketones Negative (Negative); Urine Protein Negative (Neg-Trace)
[2023-07-12 18:51] LABS: Bacteria Urine 1+ (None Seen); Hyaline Casts Urine 0-2 /LPF (0-2); RBC Urine 0-2 /HPF (0-2); WBC Urine 0-5 /HPF (0-5)
[2023-07-12 18:52] LABS: Rheumatoid Factor 17.2 IU/mL (<15.0)
[2023-07-12 18:53] LABS: Creatinine Urine 23.38 mg/dL; Total Protein Urine Random < 7 mg/dL (<12)
[2023-07-12 19:03] LABS: Alanine Aminotransferase 19 U/L (0-31); Albumin Level 4.4 g/dL (3.5-5.0); Alkaline Phosphatase 75 U/L (39-117); Anion Gap 14 (12-20); Aspartate Amino Transferase 21 U/L (5-31); Bilirubin Total 0.3 mg/dL (0.0-1.0); Blood Urea Nitrogen 13 mg/dL (9-16); C Reactive Protein 0.13 mg/dL (< or = 0.50); Calcium 9.9 mg/dL (8.4-10.2); Carbon Dioxide 27 mmol/L (22-29); Chloride 104 mmol/L (96-108); Estimated Glomerular Filt Rate > 60; Glucose Random 81 mg/dL (60-115); Iron 107 mcg/dL (30-160); Magnesium 2.1 mg/dL (1.6-2.6); Percent Iron Saturation 33 % (15-50); Phosphorus 3.4 mg/dL (2.7-4.5); Potassium 4.4 mmol/L (3.3-5.1); Sodium 141 mmol/L (135-145); Total Iron Binding Capacity 325 mcg/dL (228-428); Unsaturated Iron Binding 218 ug/dL
[2023-07-12 19:04] LABS: Basophils Absolute Auto 0.1 X10*3/uL (0.0-0.2); Basophils Percent Auto 0.9 % (0-2); Eosinophils Absolute Auto 0.7 X10*3/uL (0.0-0.4); Eosinophils Percent Auto 10.7 % (0-4); Hematocrit 44.1 % (37.0-47.0); Hemoglobin 14.6 g/dl (12.0-16.0); Imm Gran Abs Auto 0.02 X10*3/uL (0.00-0.03); Imm Gran Pct Auto 0.3 % (0.0-0.4); Lymphocytes Absolute Auto 1.3 X10*3/uL (1.2-4.9); Lymphocytes Percent Auto 19.2 % (20-40); Mean Corpuscular HGB Conc 33.1 g/dl (31.0-35.0); Mean Corpuscular Hemoglobin 30.4 pg (27.0-33.0); Mean Corpuscular Volume 91.7 fL (80.0-98.0); Mean Platelet Volume 12.1 fL (9.4-12.3); Monocytes Absolute Auto 0.5 X10*3/uL (0.1-1.2); Monocytes Percent Auto 7.5 % (2-11); Neutrophils Absolute Auto 4.1 x10*3/uL (2.0-8.3); Neutrophils Percent Auto 61.4 % (45-73); Platelet Count 171 X10*3/uL (160-400); Red Blood Count 4.81 X10*6/uL (4.20-5.50); Red Cell Distribution Width 13.6 % (11.0-16.0); White Blood Count 6.7 X10*3/uL (4.8-10.8)
[2023-07-12 19:09] LABS: Ferritin 163 ng/mL (10-250); TSH reflex Free T4 0.92 uIU/mL (0.32-4.0)
[2023-07-12 19:56] LABS: Erythrocyte Sedimentation Rate 5 MM/HR (0-20)
[2023-07-13 05:32] LABS: Parathyroid Hormone Intact 79.2 pg/mL (8.7-77.1)
[2023-07-13 09:01] LABS: HBc Num1 6.74 S/CO (0.00-0.79); Hepatitis A Antibody IgM 0.59 Index (0-0.79); ~HepC Num1 0.08 S/CO (0.00-0.79); ~Hepatitis A Antibody IgM Nonreactive (Nonreactive); ~Hepatitis B Surface Antibody NONREACTIVE (Nonreactive); ~Hepatitis C Antibody Nonreactive (Nonreactive)
[2023-07-13 11:43] LABS: HBc Num2 6.99 S/CO; HBc Num3 6.68 S/CO; HBsAGNum2 Reactive; Hepatitis B Core Antibody Reactive (Nonreactive)
[2023-07-13 11:44] LABS: HBsAGNum3 Reactive; Hepatitis B Surface Antigen Retest CNFM (Negative)
[2023-07-14 10:09] LABS: Hepatitis B Core Antibody IgM NON-REACTIVE (NON-REACTIVE)
[2023-07-14 13:04] LABS: Cyclic Citrullinated Peptide <16 UNITS
[2023-07-14 14:08] LABS: Transferrin 311 mg/dL (188-341)
[2023-07-14 14:18] LABS: Anti DNA DS Antibody 51 IU/mL; Antibody to SS-A Antigen <1.0 NEG AI (<1.0 NEG); Antibody to SS-B Antigen <1.0 NEG AI (<1.0 NEG); SM/Ribonucleoprotein Ab <1.0 NEG AI (<1.0 NEG); Smith Protein <1.0 NEG AI (<1.0 NEG)
[2023-07-15 11:38] LABS: Prot Elec - Albumin 4.6 g/dL (3.8-4.8); Prot Elec - Alpha1 0.3 g/dL (0.2-0.3); Prot Elec - Alpha2 0.6 g/dL (0.5-0.9); Prot Elec - Beta 1 0.5 g/dL (0.4-0.6); Prot Elec - Beta 2 0.4 g/dL (0.2-0.5); Prot Elec - Gamma 1.4 g/dL (0.8-1.7); Prot Elec - Total Protein 7.8 g/dL (6.1-8.1)
[2023-07-15 14:08] LABS: Complement C3 114 mg/dL (83-193)
[2023-07-16 12:38] LABS: IgA 371 mg/dL (70-320); IgG 1441 mg/dL (600-1540); IgM 94 mg/dL (50-300)
[2023-07-16 18:29] LABS: Anti Nuclear Antibody Screen NEGATIVE (NEGATIVE)
[2023-07-17 15:28] LABS: HLA B27 Negative (Negative)
[2023-07-18 07:25] LABS: Angiotensin Converting Enzyme 27 U/L (9-67)
[2023-07-18 14:03] LABS: DNAds, Crithidia Antibody Positive (Negative)
== END 2023-07-12 15:01 | disposition home or self-care (01) ==
LOC: HO.LAB 15:00
PROVIDERS: PCP Internal Medicine; Visit Provider Student in an Organized Health Care Education/Training Program
DX: Z11.59 Encounter for screening for other viral diseases (principal); M06.9 Rheumatoid arthritis, unspecified; M32.9 Systemic lupus erythematosus, unspecified; E83.119 Hemochromatosis, unspecified; D86.9 Sarcoidosis, unspecified; M45.9 Ankylosing spondylitis of unspecified sites in spine; M85.89 Other specified disorders of bone density and structure, multiple sites; Z72.89 Other problems related to lifestyle
CPT/HCPCS: 36415; 80053; 81001; 82164; 82570; 82728; 82784; 83540; 83735; 83970; 84100; 84156; 84165; 84443; 84466; 85025; 85652; 86038; 86140; 86160; 86200; 86225; 86235; 86255; 86334; 86431; 86704; 86705; 86706; 86709; 86803; 86812; 87340; 99212

== ENCOUNTER 2023-07-12 15:00 | Outpatient (AMB) | payer OTHER, SELFPAY ==
--- NOTE | 2023-07-12 15:03 | A.OFFVIS_ITS ---
Vital Signs 07/12/23 15:10 Height 5 ft 5 in Weight 148 lb 5.938 oz BMI 24.7 BP 140/78 H Blood Pressure Location Rt brachial Position Sitting Pulse 82 Pulse Source Pulse Oximeter Pulse Oximetry (%) 96 Oxygen Delivery Method Room Air Intake Visit Reasons: Bilateral hand pain Intake Note: Pt last seen 12/04/22 presents today with complaints of bilateral hand pain, redness, numbness, and tingling at the fingertips. Edema in the right hand. Started one week ago. Patient states she has been trying gel with temporary relief. Clinical Account Specialist Required: No Accompanied by: Self / Same As Patient Allergies No Known Allergies Allergy (Verified 07/12/23 15:11) Medication List - Last Reconciled 07/12/23 by Anh Gerardo MD bupropion HCl 1 tab PO DAILY diclofenac sodium 1% 2 grams topical BID PRN escitalopram oxalate 10 mg PO DAILY@1300 PRN fluticasone propionate 50 mcg/actuation (Flonase Allergy Relief) 2 sprays intranasal DAILY gabapentin 1 tab PO DAILY geriatric [id number] (Centravites 50 Plus tablet) 1 tab PO DAILY hydroxyzine HCl 10 mg PO ketoconazole 2% 1 appl topical MOFR@0900 [Levbid ] loratadine 10 mg PO DAILY lorazepam 0.5 mg PO DAILY PRN melatonin 10 mg PO BEDTIME PRN omeprazole 20 mg PO DAILY PRN tacrolimus 0.1% 1 applic topical Q OTHER DAY tamsulosin 0.4 mg PO BEDTIME 90 days [thumb spica wear nightly & as much as possible throughout the day] triamcinolone acetonide 0.1% 1 appl topical BID PRN zolpidem 2.5 mg PO BEDTIME PRN HPI Comments Details: 68-year-old female with generalized osteoarthritis returns for follow-up. She states that over the last 3 months she has been having bilateral hand pain and swelling, more severe on the right. She stated that she had to take her rings off because her fingers were swollen. A few days ago she reached out to her PCP and was prescribed Tylenol 3 g daily as well as ibuprofen 400 mg daily with some improvement. She also applies Voltaren gel regularly. She denies any recent trauma or overuse. Denies any skin rashes. Initial history: This is a 67-year-old female who presents for evaluation of generalized osteoarthritis. Patient states that she has been having low back pain, she also has burning along the outside of her left hip going all the way to her left foot. With regards to her back pain. She was evaluated by Dr. Child 3 months ago and an epidural steroid injection was suggested. Patient had 2 epidural steroid injections in the past and they were helpful for the back pain as well as the burning on the outside of her hip. Patient was hesitant about the procedure. Dr. Posey asked patient to increase her gabapentin to 900 mg 3 times a day, patient was afraid of high dose. She also states that she gets pain and stiff of her left middle finger. She also gets some pain and stiffness of her thumbs especially with use. She applies Voltaren gel twice daily when her fingers hurt. [facility] Medical History Neuropathy Arthritis Diverticulitis Bipolar 1 disorder GERD (gastroesophageal reflux disease) Disc degeneration, lumbar Spondylosis of lumbar joint History of cervical cancer Irritable bowel syndrome with constipation Weak urinary stream Surgical menopause Osteopenia Essential hypertension Dyslipidemia Anxiety Hip pain, left Surgical History History of cardiac cath Hx of esophagogastroduodenoscopy Hx of colonoscopy History of partial hysterectomy Family History Father Throat cancer Mother No problems noted. Brother No problems noted. Sister No problems noted. Sister No problems noted. Sister No problems noted. Sister Hyperlipidemia HTN (hypertension) Depression Myocardial infarction Daughter No problems noted. Daughter No problems noted. Daughter No problems noted. Daughter No problems noted. Paternal Aunt Rheumatoid arthritis Other Mental health disorder Substance use disorder Social History Housing: Apartment Alcohol intake: current Alcohol intake frequency: does not drink Alcohol type: wine Patient Tobacco Use Status: Former Tobacco user Quit Date: 12 years e-Cigarette/Vaping Use: Never Used Advance Directives Date on File: 12/21/19 service: No Current occupational status: unemployed Cognitive needs: No Hearing needs: No Vision needs: No Female Reproductive History Menstrual Menopause type: natural Total pregnancies: 5 Full term: 4 Number of Living Children: 3 Ab spontaneous: 1 Date of last pap smear: 11/02/18 Date of Mammogram: 05/10/23 Review of Systems Musc Reports arthralgias, Reports joint swelling, Reports numbness, Reports stiffness and Reports tingling Neuro Reports numbness and Reports tingling Physical Exam Vital Signs: Last Vital Signs Pulse 82 07/12/23 15:10 BP 140/78 H 07/12/23 15:10 Pulse Ox 96 07/12/23 15:10 Oxygen Delivery Method Room Air 07/12/23 15:10 BMI result Body Mass Index 24.7 Const General: cooperative, healthy appearing and comfortable Nutritional Appearance: average body habitus Orientation/consciousness: patient oriented x3 Limitations: no limitations HEENT Head: Yes normocephalic and Yes atraumatic Mouth: moist mucous membranes Resp Effort & Inspection: normal respiratory effort and able to speak in complete sentences Auscultation: clear to auscultation bilaterally Cardio Rate: regular rate Rhythm: regular rhythm Skin General skin exam: no rashes or lesions noted Neuro General: patient oriented x3 Extrem Other: Osteoarthritic changes of both hands with Nick's and Heberden's nodes Bilateral 1st CMC joint tenderness Negative Rika's test bilaterally No tender flexor or extensor tendons bilaterally Right wrist pain with flexion and extension Mild right 2nd MCP swelling and tenderness Right 1st MCP and IP joint tenderness Left 1st MCP and IP joint tenderness Tenderness at the common flexor origin at the medial epicondyle bilaterally with negative resisted wrist flexion test Negative resisted wrist extension test bilaterally Assessment & Plan Assessment & Plan (1) Bilateral hand pain: Code(s): M79.641 - Pain in right hand; M79.642 - Pain in left hand Category: Medical Plan: This is a 68-year-old female with generalized osteoarthritis returns for follow- up. Over the last 3 months she has been having bilateral hand pain associated with swelling, R>L. Symptoms improved with Tylenol and ibuprofen. Like to rule out inflammatory arthritis. Will order comprehensive serology to screen for underlying autoimmune rheumatic disease as well as causes of CPPD arthritis. Check x-rays of both hands and wrists Start prednisone therapeutic trial . Advised patient not to combine prednisone with ibuprofen. Follow-up in 5-6 weeks Plan I spent 30 minutes reviewing patient's chart, evaluating patient, ordering diagnostic workup, counseling patient and documenting in the chart Orders: Orders Complete Blood Count Auto Diff Today M06.9 - Rheumatoid arthritis, unspecified Comprehensive Met. Panel Today M06.9 - Rheumatoid arthritis, unspecified C Reactive Protein Today M06.9 - Rheumatoid arthritis, unspecified Erythrocyte Sedimentation Rate Today M06.9 - Rheumatoid arthritis, unspecified Hepatitis A,B,C Profile Today Z11.59 - Encounter for screening for other viral diseases Protein Electrophoresis, Serum Today M06.9 - Rheumatoid arthritis, unspecified Rheumatoid Factor Today M06.9 - Rheumatoid arthritis, unspecified Anti DNA DS Antibody Today M32.9 - Systemic lupus erythematosus, unspecified Complement C3 Today M32.9 - Systemic lupus erythematosus, unspecified Complement C4 Today M32.9 - Systemic lupus erythematosus, unspecified DNA Double Stranded-Crithidia Today M32.9 - Systemic lupus erythematosus, unspecified UA w Microscopic Today M32.9 - Systemic lupus erythematosus, unspecified IRON PROFILE Today E83.119 - Hemochromatosis, unspecified Parathyroid Hormone Intact Today E21.3 - Hyperparathyroidism, unspecified Immunofixation Pnl, Serum Today M06.9 - Rheumatoid arthritis, unspecified Cyclic Citrullinated Peptide Today M06.9 - Rheumatoid arthritis, unspecified SCOTT Reflex Titer and Pattern Today M32.9 - Systemic lupus erythematosus, unspecified Anti Extractable Nuclear Ag Today M32.9 - Systemic lupus erythematosus, unspecified Protein Creatinine Ratio, Ur Today M32.9 - Systemic lupus erythematosus, unspecified Sjogren's Antibodies Today M32.9 - Systemic lupus erythematosus, unspecified Ferritin Today E83.119 - Hemochromatosis, unspecified Transferrin Today E83.119 - Hemochromatosis, unspecified Phosphorus Today E21.3 - Hyperparathyroidism, unspecified TSH reflex Free T4 Today E21.3 - Hyperparathyroidism, unspecified Magnesium Today M85.89 - Other specified disorders of bone density and structure, multiple sites Angiotensin Converting Enzyme Today D86.9 - Sarcoidosis, unspecified HLA B27 Today M45.9 - Ankylosing spondylitis of unspecified sites in spine XR hand wrist LT Today M79.641 - Pain in right hand, M79.642 - Pain in left hand XR hand wrist RT Today M79.641 - Pain in right hand, M79.642 - Pain in left hand Medications: New prednisone Take 4 tabs daily for 1 week, 3 tabs daily for 1 week, 2 tabs daily for 1 week, 1 tab daily for 1 week then stop 70 tabs 0RF Coding Level of Care Code Est Pt Level 4 (57958) Diagnoses Bilateral hand pain M79.641; M79.642
[2023-07-12 15:10] VITALS: BP 140/78; PULSE 82; O2SAT 96; BMI 24.7
== END 2023-07-12 15:45 | disposition home or self-care (01) ==
PROVIDERS: PCP Internal Medicine; Visit Provider Student in an Organized Health Care Education/Training Program
DX: M79.641 Pain in right hand (principal); M79.642 Pain in left hand
CPT/HCPCS: 99214

== ENCOUNTER 2023-07-13 14:32 | Outpatient (REF) | payer OTHER, SELFPAY ==
--- NOTE | ~2023-07-13 | XR_ITS ---
EXAMINATION: XR BILATERAL HANDS CLINICAL INFORMATION: Pain in bilateral hands with numbness. COMPARISON: 05/20/2018 TECHNIQUE: 4 views of each hand. FINDINGS: Right Hand: The bones are diffusely demineralized. Moderate degenerative changes in the first carpometacarpal joint with joint space narrowing and hypertrophic change. Moderate hypertrophic change with joint space narrowing at the fifth DIP joint. Mild degenerative changes in scattered DIP joints. Left Hand: The bones are diffusely demineralized. Moderate degenerative changes in the first carpometacarpal joint with joint space narrowing and hypertrophic change. Moderate hypertrophic change with joint space narrowing in scattered DIP joints, most notable in the third and fifth DIP joints of the left hand. XR/XR hand wrist RT IMPRESSION: Moderate degenerative changes in the bilateral hands as detailed above. Bones are diffusely demineralized. Recommend follow-up imaging in 10-14 days if fracture is suspected.
--- NOTE | ~2023-07-13 | XR_ITS ---
EXAMINATION: XR BILATERAL HANDS CLINICAL INFORMATION: Pain in bilateral hands with numbness. COMPARISON: 05/20/2018 TECHNIQUE: 4 views of each hand. FINDINGS: Right Hand: The bones are diffusely demineralized. Moderate degenerative changes in the first carpometacarpal joint with joint space narrowing and hypertrophic change. Moderate hypertrophic change with joint space narrowing at the fifth DIP joint. Mild degenerative changes in scattered DIP joints. Left Hand: The bones are diffusely demineralized. Moderate degenerative changes in the first carpometacarpal joint with joint space narrowing and hypertrophic change. Moderate hypertrophic change with joint space narrowing in scattered DIP joints, most notable in the third and fifth DIP joints of the left hand. XR/XR hand wrist LT IMPRESSION: Moderate degenerative changes in the bilateral hands as detailed above. Bones are diffusely demineralized. Recommend follow-up imaging in 10-14 days if fracture is suspected.
== END 2023-07-13 14:33 | disposition home or self-care (01) ==
LOC: HO.XRAY 14:32
PROVIDERS: Visit Provider Student in an Organized Health Care Education/Training Program
DX: M79.641 Pain in right hand (principal); M79.642 Pain in left hand
CPT/HCPCS: 73110; 73130

== ENCOUNTER 2023-07-14 12:29 | Outpatient (REF) | payer OTHER, SELFPAY | END 2023-07-14 12:30 | disposition home or self-care (01) | LOC: HO.LAB 12:29 | PROVIDERS: Visit Provider Student in an Organized Health Care Education/Training Program | DX: Z13.89 Encounter for screening for other disorder (principal) ==

== ENCOUNTER 2023-08-16 16:02 | Outpatient (REF) | payer OTHER, SELFPAY ==
--- NOTE | ~2023-08-16 | MR_ITS ---
EXAMINATION: MR LUMBAR SPINE WITHOUT CONTRAST CLINICAL INFORMATION: Low back pain radiating to left leg, burning sensation radiation left lower extremity. Patient has history of left L4 and L5 nerve root sheath injections 12/22/2022, which did not help . COMPARISON: MR lumbar 01/14/2021. TECHNIQUE: MRI of the lumbar spine was obtained using routine sequences without contrast. Standard sequences utilized. FINDINGS: Coronal Alignment: There is a very mild levoconvex scoliosis, apex at L3. Sagittal Alignment: Normal lordosis. Mildly worsening 3 mm retrolisthesis L2 on L3. 2 mm anterolisthesis L4 on L5, unchanged. 3 mm anterolisthesis of L5 on S1, unchanged. Lumbosacral Junction: Normal. No transitional level. Vertebral Bodies/Bone Marrow: No compression deformities. No gross bone marrow edema identified. No abnormal infiltrating bone marrow signal. Mild fatty type endplate changes L5-S1, with trace endplate edema, similar to prior. Discs: Moderate loss of disc height and signal L2-L3, worsening. Moderate to severe loss L5-S1 with disc vacuum phenomenon, unchanged. Mild to moderate loss at L3-L4 L4-L5, unchanged. Disc spaces above L2 are normal. Spinal Canal: No abnormal developmental findings. Conus Medullaris: Terminates at superior endplate of L2. Morphology and signal is normal. Distal spinal cord is normal. Intradural Nerve Roots: Normal in appearance. No clumping or masses. Axial Disc Space Images: T12-L1: Normal. No central canal or neural foraminal narrowing. Normal-appearing facets. No change. L1-L2: No focal disc herniation or bulge. Mild hypertrophic facet changes bilaterally. This is unchanged. No central canal or neural foraminal narrowing is evident. L2-L3: Progressing degenerative disc disease. Diffuse disc bulge is present extending symmetrically into the bilateral foraminal zones. Moderate hypertrophic degenerative facet changes bilaterally with a right facet joint effusion, posterior ligamentous thickening/infolding, and a tiny left foraminal synovial cyst suspected within the inferior left foramen (series 5, image 8). The combination of findings is resulting in moderate central canal stenosis, moderate bilateral subarticular recess stenosis with contact and possible mild impingement of the traversing L3 roots bilaterally. Moderate bilateral foraminal narrowing right greater than left with contact but no impingement of the exiting right L2 nerve root. These Findings have progressed. Possible tiny left foraminal synovial cyst was present previously. L3-L4: There is a shallow diffuse bulging disc present extending asymmetrically into both foraminal zones, moderate hypertrophic degenerative facet changes bilaterally, prominent posterior ligamentous infolding/thickening, with findings resulting in mild central canal stenosis, mild bilateral subarticular recess stenosis, and mild bilateral neural foraminal stenosis. No significant interval change. No nerve root impingement evident. L4-L5: There is a subtle anterolisthesis with a diffuse shallow extrusion of disc material, extending into the left greater than right neural foramen and lateral to foramen bilaterally. Moderate to severe right greater than left hypertrophic degenerative facet changes are present bilateral subtle facet effusions, facet spurring, and moderate posterior ligamentous thickening/unfolding. These findings have progressed. The combination of findings is resulting in moderate central canal stenosis, severe left subarticular recess stenosis with impingement of the traversing left L5 nerve root, moderate to severe right subarticular recess stenosis with contact but no definite impingement of the traversing right L5 roots. There is moderate to severe left neural foraminal stenosis with contact but no deformation of the exiting left L4 root, and similar findings in the right neural foramen. Overall, findings have progressed, most notably left subarticular recess stenosis, bilateral foraminal stenosis, and facet hypertrophic degeneration. L5-S1: Stable 3 mm anterolisthesis with disc degeneration. Subtle annular fissure centrally. Low signal in the pars interarticularis bilaterally could indicate subtle pars defects. There is a diffuse bulging disc, asymmetrically prominent into the left foraminal zone and lateral to foramen. This also extends right foraminal. Moderate hypertrophic degenerative facet changes bilaterally, left greater than right, with associated mild to moderate posterior ligamentous thickening/infolding. There is mild central canal stenosis, unchanged, [id number] left subarticular recess stenosis, with no definite contact nor impingement of the traversing left S1 roots, unchanged. There is severe neural foraminal stenosis with contact and deformation of the exiting left L5 root, minimally worsened. There is moderate right neural foraminal narrowing with contact but no deformation or impingement of the exiting right L5 root. Imaged SI Joints: Mild degenerative changes. Paravertebral and Included Extraspinal Soft Tissues: Paraspinal musculature is normal. No significant atrophy. Aorta is normal in caliber. Kidneys appear normal with partially imaged extrarenal pelves. Normal appendix visualized. No adenopathy. MR/MR lumbar spine wo con IMPRESSION: 1. Spondylosis, worsening at L2-L3, and worsening L4-L5 and L5-S1, where the patient's left symptoms are likely arising. Severe left neural foraminal stenosis at L5-S1 is impinging the exiting left L5 nerve root. At L4-L5, there is moderate to severe left neural foraminal stenosis with contact but no deformation of the exiting L4 root. There has been worsening subarticular recess stenosis at L4-L5, with probable impingement of the traversing left L5 nerve root. See above for details. 2. Possible developing pars defects at L5-S1. Mildly worsening anterolisthesis, 3 mm currently. 3. Worsening degenerative disc disease L2-L3. Worsening facet arthrosis at L2-L3, L4-L5, and L5-S1. 4. See the body of the report for additional ancillary findings.
== END 2023-08-16 16:03 | disposition home or self-care (01) ==
LOC: HO.MRI 16:02
PROVIDERS: PCP Internal Medicine; Visit Provider Psychiatry & Neurology Neurology
DX: M54.16 Radiculopathy, lumbar region (principal)
CPT/HCPCS: 72148

== ENCOUNTER → 2023-08-16 16:02 | Outpatient (BNV) | payer OTHER, SELFPAY | PROVIDERS: PCP Internal Medicine; Visit Provider Radiology Diagnostic Radiology | DX: M47.816 Spondylosis without myelopathy or radiculopathy, lumbar region (principal); M48.07 Spinal stenosis, lumbosacral region | CPT/HCPCS: 72148 ==

== ENCOUNTER 2023-08-17 12:30 | Outpatient (AMB) | payer OTHER, SELFPAY ==
--- NOTE | 2023-08-17 12:37 | A.OFFPC_ITS ---
Vital Signs 08/17/23 12:38 Height 5 ft 5 in Weight 147 lb BMI 24.5 BP 130/80 Blood Pressure Location Lt brachial Position Sitting Pulse 80 Pulse Source Pulse Oximeter Pulse Oximetry (%) 97 Oxygen Delivery Method Room Air Intake Visit Reasons: PE - See comments Intake Note: Patient here for physical exam. Mammo: 2023 BD: 2023 Allergies No Known Allergies Allergy (Verified 08/18/23 03:47) Medication List - Last Reconciled 08/18/23 by Osiris Soni MD ascorbic acid (vitamin C) mg PO bupropion HCl 1 tab PO DAILY diclofenac sodium 1% 2 grams topical BID PRN escitalopram oxalate 10 mg PO DAILY@1300 PRN fluticasone propionate 50 mcg/actuation (Flonase Allergy Relief) 2 sprays intranasal DAILY gabapentin 1 tab PO DAILY geriatric [id number] (Centravites 50 Plus tablet) 1 tab PO DAILY hydroxyzine HCl 10 mg PO ketoconazole 2% 1 appl topical MOFR@0900 [Levbid ] loratadine 10 mg PO DAILY lorazepam 0.5 mg PO DAILY PRN melatonin 10 mg PO BEDTIME PRN methylprednisolone (Medrol) 4 mg PO DAILY omeprazole 20 mg PO DAILY PRN tacrolimus 0.1% 1 applic topical Q OTHER DAY tamsulosin 0.4 mg PO BEDTIME 90 days [thumb spica wear nightly & as much as possible throughout the day] triamcinolone acetonide 0.1% 1 appl topical BID PRN zolpidem 2.5 mg PO BEDTIME PRN Tobacco use date assessed: 08/17/23 Fall risk assessment: 1 Fall in past year Last assessed Fall Risk: 08/17/23 Dental Screening Dental Screen Date: 08/17/23 Did you have a dental visit in the last 12 months?: Yes Did you have a dental problem in the last 6 months where you did not have access to dental care?: No Was dental information given to patient?: Patient has dentist HPI PE - See comments HPI Details 68-year-old lady with chronic GERD, dysl ipidemia, anxiety disorder, hypertension, IBS with constipation, GERD, obstructive sleep apnea, osteoarthritis, here today for physical exam. She is up-to-date with her screening mammogram, done earlier this year. Patient however complains of pain in her left breast mainly on the lateral aspect and yellowish milky discharge coming out from left nipple, which has been present for the last several days. She had a bone density scan done in 07/03/2023 which showed presence of osteopenia in left femoral neck, left femur and lower back. She had a colonoscopy done in 2019, and is due again for a recheck this year due to positive family history for colon cancer. Patient reports having had a syncopal attack 3 days ago, did not go to the ER. No further episodes of syncopal attacks or lightheadedness reported since episode. Denies any accompanying chest pain or shortness of breath. Feels lightheaded on occasions with sudden changes in position [facility] Medical History (Updated 08/18/23 @ 03:58 by Osiris Soni MD) Right carotid bruit Neuropathy Diverticulitis Bipolar 1 disorder GERD (gastroesophageal reflux disease) Disc degeneration, lumbar Spondylosis of lumbar joint History of cervical cancer Irritable bowel syndrome with constipation Weak urinary stream Surgical menopause Osteopenia Essential hypertension Dyslipidemia Anxiety Surgical History History of cardiac cath Hx of esophagogastroduodenoscopy Hx of colonoscopy History of partial hysterectomy Family History Father Throat cancer Mother No problems noted. Brother No problems noted. Sister No problems noted. Sister No problems noted. Sister No problems noted. Sister Hyperlipidemia HTN (hypertension) Depression Myocardial infarction Daughter No problems noted. Daughter No problems noted. Daughter No problems noted. Daughter No problems noted. Paternal Aunt Rheumatoid arthritis Other Mental health disorder Substance use disorder Social History Housing: Apartment Alcohol intake: current Alcohol intake frequency: does not drink Alcohol type: wine Patient Tobacco Use Status: Former Tobacco user e-Cigarette/Vaping Use: Never Used Advance Directives Date on File: 12/21/19 service: No Current occupational status: unemployed Cognitive needs: No Hearing needs: No Vision needs: No Questionnaire PHQ-9 Over the last 2 weeks, how often have you been bothered by any of the following problems? Depression Screening [place] [address] - PHQ-9 Billing: Patient declined-do not bill Source: Developed by Drs. Howie Leavitt, Ellie Ponce Benson and colleagues, with an educational nathanael from [employer]. Thrive Questionnaire Date Thrive assessed: 08/17/23 What is your living situation today?: I choose not to answer this question Within the past 12 months, did the food you bought not last and you didn't have the money to get more?: I choose not to answer this question Within the past 12 months, did you worry whether your food would run out before you got money to buy more?: I choose not to answer this question Do you have trouble paying for medicines?: I choose not to answer this question Do you have trouble getting transportation to medical appointments?: I choose not to answer this question Do you have trouble paying your heating and electricity bill?: I choose not to answer this question Do you have trouble taking care of your child, family member or friend?: I choose not to answer this question Do you have trouble with day-to-day activities such as bathing, preparing meals, shopping, managing finances, etc.?: I choose not to answer this question Are you currently unemployed and looking for a job?: I choose not to answer this question Are you interested in more education?: I choose not to answer this question Currently or been in a relationship where the following occur: I choose not to answer this question THRIVE Score: 0 AUDIT C Alcohol Use Questionnaire (AUDIT-C) 1. How often do you have a drink containing alcohol?: Never Total Score: 0 GEETA-7 AMB Questionnaire GEETA-7 Date GEETA - 7 assessed: 08/17/23 Source: Developed by Drs. Howie Leavitt, Ponce Garcia and colleagues, with an educational nathanael from [employer]. GEETA-7 Assessment Billing GEETA-7 Assessment Tool: pt declined-do not bill Review of Systems Const Denies fever(s), Denies headache(s), Denies weakness, Denies weight gain and Denies weight loss Eyes Denies change in vision ENT Denies headache(s), Denies nasal congestion and Denies sore throat Card Denies chest pain, Denies lightheadedness, Denies palpitations and Denies dyspnea Resp Denies chest congestion, Denies cough, Denies dyspnea and Denies wheezing GI Reports as per HPI Denies urinary frequency, Denies dysuria and Denies urinary urgency Musc Reports myalgias and Reports stiffness Skin/Breast Denies lesions and Denies rash Neuro Denies headache(s) and Denies weakness Psych Reports as per HPI Endo Denies polydipsia, Denies polyuria and Denies palpitations Albino/Lymph Denies easy bruising Aller/Immun Denies seasonal rhinorrhea and Denies wheezing Physical exam (Primary Care) Vital Signs: Last Vital Signs Pulse 80 08/17/23 12:38 BP 130/80 08/17/23 12:38 Pulse Ox 97 08/17/23 12:38 Oxygen Delivery Method Room Air 08/17/23 12:38 BMI result Body Mass Index 24.5 Tobacco/Smoking Status: Tobacco use Status Tobacco use date assessed 08/17/23 08/17/23 12:44 Patient Tobacco Use Status Former Tobacco user 08/17/23 12:38 e-Cigarette/Vaping Use Never Used 08/17/23 12:38 Thrive Assessment: Date of Thrive Assessment Date Thrive assessed 08/17/23 08/17/23 12:45 Currently or been in a relationship where the following occur: I choose not to answer this question Const Other: Alert oriented x3, no acute distress noted, ambulatory with normal gait [facility] General nose exam: Normal external nose present and No nasal discharge present Mouth: Normal oral and palatal mucosa present and tongue normal Eyes General: appearance normal, both eyes and all related structures Periorbital: periorbital findings normal Conjunctivae: conjunctivae normal Pupils: Equal, round and reactive pupils present EOM: EOMs intact bilaterally Neck Neck: Yes full ROM and Yes supple Chest Other: Breast is symmetric, tenderness on palpation over upper outer aspect of left breast, no definite mass palpated. No nipple discharge seen Resp Effort & Inspection: normal respiratory effort and able to speak in complete sentences Auscultation: clear to auscultation bilaterally Cardio Other: S1-S2 present regular rate and rhythm GI Palpation (GI): Soft to palpation, nontender, no guarding and no masses General: Yes no CVA tenderness Back/Spine/Pelvis Back: no CVA tenderness Skin General skin exam: no rashes or lesions noted Neuro General: gait normal, tone normal, moves all extremities, Normal light touch and pain sensation and no focal motor deficits Cranial nerves: Yes Equal, round and reactive pupils present Extrem General: Yes full ROM, Yes no joint enlargement, Yes no clubbing, cyanosis or edema and Yes normal gait Psych Appearance: grossly normal and well kempt Speech and movement: Normal speech and movement present Affect: normal affect Attitude: cooperative Thought process: Normal thought process present Thought content: Normal thought content present Results Reviewed Results Reviewed: Name: Jessa Minor Age/Sex: 68/F : 1955 Unit#: [id number] Attend Dr: Anh Gerardo MD Re07/12/23 Status: DEP [facility] Disch: SPEC : [id number] FORTINO: 07/12/23 STATUS: COMP REQ : [id number] RECD: 07/12/[address]: Anh Gerardo MD COMP: 07/12/23 ENTERED: 07/12/[address] [facility] DR: Osiris Soni MD ORDERED: CBC Auto Diff Test Result Flag Reference WBC 6.7 4.8-10.8 X10*3/uL RBC 4.81 4.20-5.50 X10*6/uL HGB 14.6 12.0-16.0 g/dl HCT 44.1 37.0-47.0 % MCV 91.7 80.0-98.0 fL MCH 30.4 27.0-33.0 pg MCHC 33.1 31.0-35.0 g/dl RDW 13.6 11.0-16.0 % PLT 171 160-400 X10*3/uL MPV 12.1 9.4-12.3 fL Neut Pct Auto 61.4 45-73 % ImGran Pct Auto 0.3 0.0-0.4 % Lymp Pct Auto 19.2 L 20-40 % [place] Pct Auto 7.5 2-11 % Eos Pct Auto 10.7 H 0-4 % Baso Pct Auto 0.9 0-2 % NRBC Pct Auto 0.0 0.0-0.2 /100WBC ANC Neut Abs # 4.1 2.0-8.3 x10*3/uL ImGran Abs Auto 0.02 0.00-0.03 X10*3/uL Lymph Abs Auto 1.3 1.2-4.9 X10*3/uL [place] Abs Auto 0.5 0.1-1.2 X10*3/uL Eos Abs Auto 0.7 H 0.0-0.4 X10*3/uL Baso Abs Auto 0.1 0.0-0.2 X10*3/uL NRBC Abs Auto 0.000 0.0-0.012 X10*3/uL Name: Jessa Minor Age/Sex: 68/F : 1955 Unit#: [id number] Attend Dr: Anh Gerardo MD Re07/12/23 Status: DEP REF Location: .LAB Disch: SPEC : [id number] FORTINO: 07/12/23 STATUS: COMP REQ : [id number] RECD: 07/12/[address]: Anh Gerardo MD COMP: 07/12/23 ENTERED: 07/12/[address]: Osiris Soni MD ORDERED: CMP, Phos, MG, IRON PROF, Ferritin, C Reactive Prot, TSH Rflx Test Result Flag Reference Sodium 141 135-145 mmol/L Potassium 4.4 3.3-5.1 mmol/L CL 104 96-108 mmol/L CO2 27 22-29 mmol/L Gap 14 12-20 BUN 13 9-16 mg/dL Creat 0.78 0.5-1.4 mg/dL EGFR > 60 NOTE: For -[place]aur[place] individuals, multiply the result by 1.210. Chronic Kidney Disease: Estimated GFR < 60 mL/min/1.73 m2 Severe Kidney Disease: Estimated GFR < 15 mL/min/1.73m2 Glucose, Random 81 60-115 mg/dL CA 9.9 8.4-10.2 mg/dL Phosphorus 3.4 2.7-4.5 mg/dL Magnesium 2.1 1.6-2.6 mg/dL Iron 107 30-160 mcg/dL TIBC 325 228-428 mcg/dL Saturation 33 15-50 % UIBC 218 ug/dL Ferritin 163 10-250 ng/mL Total Bili 0.3 0.0-1.0 mg/dL AST (GOT) 21 5-31 U/L ALT (GPT) 19 0-31 U/L CRP 0.13 < or = 0.50 mg/dL Protein, Total 8.0 6.5-8.0 g/dL Alb 4.4 3.5-5.0 g/dL Alk Phos 75 39-117 U/L TSH 0.92 0.32-4.0 uIU/mL Assessment and Plan Assessment & Plan (1) Annual visit for general adult medical examination with abnormal findings: Code(s): Z00.01 - Encounter for general adult medical examination with abnormal findings Plan: Reviewed recent fasting labs, ordered a fasting lipid panel. Up-to-date with her screening mammogram, due for her screening colonoscopy with Dr. Lopez, referral done. Up-to-date with her vaccine (2) Right carotid bruit: Code(s): R09.89 - Other specified symptoms and signs involving the circulatory and respiratory systems Plan: Carotid ultrasound ordered (3) History of syncope: Code(s): Z87.898 - Personal history of other specified conditions Plan: Carotid ultrasound ordered , CBC and electrolytes, fasting glucose will check recently , which showed normal results (4) Colon cancer screening: Code(s): Z12.11 - Encounter for screening for malignant neoplasm of colon Plan: Referred to Dr. Lopez for her repeat screening colonoscopy due to positive family (5) Pain of left breast: Code(s): N64.4 - Mastodynia Plan: Ultrasound of left breast ordered (6) Discharge from nipple: Code(s): N64.52 - Nipple discharge Plan: Ultrasound of left breast ordered Orders: Orders Lipid Panel 08/17/23 Z00.01 - Encounter for general adult medical examination with abnormal findings, Z13.220 - Encounter for screening for lipoid disorders US carotid duplex BI 08/17/23 R09.89 - Other specified symptoms and signs involving the circulatory and respiratory systems, Z87.898 - Personal history of other specified conditions US breast LT complete 08/17/23 N64.4 - Mastodynia, N64.52 - Nipple discharge Referrals Gastroenterology Referral Z12.11 - Encounter for screening for malignant neoplasm of colon Coding Level of Care Code Est Pt Prev Care >65y(18287) Diagnoses Annual visit for general adult medical examination with abnormal findings Z00. Right carotid bruit R09.89 History of syncope Z87.898 Colon cancer screening Z12.11 Pain of left breast N64.4 Discharge from nipple N64.52
[2023-08-17 12:38] VITALS: BP 130/80; PULSE 80; O2SAT 97; BMI 24.5
== END 2023-08-17 13:38 | disposition home or self-care (01) ==
PROVIDERS: PCP Internal Medicine; Visit Provider Internal Medicine
DX: Z00.01 Encounter for general adult medical examination with abnormal findings (principal); N64.4 Mastodynia; N64.52 Nipple discharge; R09.89 Other specified symptoms and signs involving the circulatory and respiratory systems; Z87.898 Personal history of other specified conditions; Z12.11 Encounter for screening for malignant neoplasm of colon
CPT/HCPCS: 99397

== ENCOUNTER 2023-08-19 14:18 | Outpatient (AMB) | payer OTHER, SELFPAY ==
--- NOTE | 2023-08-19 14:27 | MHC.OFFVIS ---
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 Required: No Accompanied by: Self / Same As Patient Allergies prednisone Adverse Reaction (Intermediate, Verified 08/19/23 14:51) Anxiety Medication List - Last Reconciled 08/19/23 by Anh Gerardo MD ascorbic acid (vitamin C) mg PO bupropion HCl 1 tab PO DAILY diclofenac sodium 1% 2 grams topical BID PRN escitalopram oxalate 10 mg PO DAILY@1300 PRN fluticasone propionate 50 mcg/actuation (Flonase Allergy Relief) 2 sprays intranasal DAILY gabapentin 1 tab PO DAILY geriatric tcwpbsil-slsq-tkao (Centravites 50 Plus tablet) 1 tab PO DAILY hydroxyzine HCl 10 mg PO ketoconazole 2% 1 appl topical MOFR@0900 [Levbid ] loratadine 10 mg PO DAILY lorazepam 0.5 mg PO DAILY PRN melatonin 10 mg PO BEDTIME PRN omeprazole 20 mg PO DAILY PRN tacrolimus 0.1% 1 applic topical Q OTHER DAY tamsulosin 0.4 mg PO BEDTIME 90 days [thumb spica wear nightly & as much as possible throughout the day] triamcinolone acetonide 0.1% 1 appl topical BID PRN zolpidem 2.5 mg PO BEDTIME PRN HPI Comments Details: Patient returns for follow-up after completion of her diagnostic workup. She states that she took half of the amount of prednisone but could not continue it due to significant anxiety, restlessness, headaches. Discontinued that. She stated that it definitely helped her joints. States that she gets intermittent tiny rashes that are burning and numb, on her forearms and legs. Initial history: This is a 67-year-old female who presents for evaluation of generalized osteoarthritis. Patient states that she has been having low back pain, she also has burning along the outside of her left hip going all the way to her left foot. With regards to her back pain. She was evaluated by Dr. Child 3 months ago and an epidural steroid injection was suggested. Patient had 2 epidural steroid injections in the past and they were helpful for the back pain as well as the burning on the outside of her hip. Patient was hesitant about the procedure. Dr. Posey asked patient to increase her gabapentin to 900 mg 3 times a day, patient was afraid of high dose. She also states that she gets pain and stiff of her left middle finger. She also gets some pain and stiffness of her thumbs especially with use. She applies Voltaren gel twice daily when her fingers hurt. [facility] Medical History Right carotid bruit Neuropathy Diverticulitis Bipolar 1 disorder GERD (gastroesophageal reflux disease) Disc degeneration, lumbar Spondylosis of lumbar joint History of cervical cancer Irritable bowel syndrome with constipation Weak urinary stream Surgical menopause Osteopenia Essential hypertension Dyslipidemia Anxiety Surgical History History of cardiac cath Hx of esophagogastroduodenoscopy Hx of colonoscopy History of partial hysterectomy Family History Father Throat cancer Mother No problems noted. Brother No problems noted. Sister No problems noted. Sister No problems noted. Sister No problems noted. Sister Hyperlipidemia HTN (hypertension) Depression Myocardial infarction Daughter No problems noted. Daughter No problems noted. Daughter No problems noted. Daughter No problems noted. Paternal Aunt Rheumatoid arthritis Other Mental health disorder Substance use disorder Social History Housing: Apartment Alcohol intake: current Alcohol intake frequency: does not drink Alcohol type: wine Patient Tobacco Use Status: Former Tobacco user e-Cigarette/Vaping Use: Never Used Advance Directives Date on File: 12/21/19 service: No Current occupational status: unemployed Cognitive needs: No Hearing needs: No Vision needs: No Review of Systems Musc Reports arthralgias, Reports numbness, Reports stiffness and Reports tingling Skin/Breast Reports rash Neuro Reports numbness and Reports tingling Physical Exam Vital Signs: Last Vital Signs Pulse 94 08/19/23 14:39 BP 152/66 H 08/19/23 14:39 Pulse Ox 97 08/19/23 14:39 Oxygen Delivery Method Room Air 08/19/23 14:39 BMI result Body Mass Index 24.4 Const General: cooperative, healthy appearing and comfortable Nutritional Appearance: average body habitus Orientation/consciousness: patient oriented x3 Limitations: no limitations HEENT Head: Yes normocephalic and Yes atraumatic Mouth: moist mucous membranes Resp Effort & Inspection: normal respiratory effort and able to speak in complete sentences Auscultation: clear to auscultation bilaterally Cardio Rate: regular rate Rhythm: regular rhythm Skin General skin exam: no rashes or lesions noted Neuro General: patient oriented x3 Extrem Other: Osteoarthritic changes of both hands with Nick's and Heberden's nodes No active synovitis today Assessment & Plan Assessment & Plan (1) SLE (systemic lupus erythematosus): Comment: dx 08/2023 (inflammatory arthritis, ? Skin rashes, ++ SCOTT ++ dsDNA + RF) Code(s): M32.9 - Systemic lupus erythematosus, unspecified Category: Medical Qualifiers: Systemic lupus erythematosus type: unspecified Systemic lupus erythematosus organ involvement: other Qualified Code(s): M32.19 - Other organ or system involvement in systemic lupus erythematosus Plan: This is a 68-year-old female who presents evaluation of new onset inflammatory arthritis. Labs show positive SCOTT with positive dsDNA. Clinical picture consistent with new onset SLE. Patient can not tolerate prednisone due to psychiatric side effects. Discussed lupus and its management. Past risks and benefits of hydroxychloroquine. Patient agreed to proceed. Start hydroxychloroquine 300 mg daily. Advised patient to take pictures of any rashes Labs before next visit in 3 months (2) Long-term use of hydroxychloroquine: Code(s): Z79.899 - Other longterm (current) drug therapy Category: Medical Plan: Patient takes Lexapro 10 mg daily, she takes hydroxyzine only as needed. Now that she is being started on hydroxychloroquine, will need to monitor her QTC interval. Check EKG today. Advised patient to start taking hydroxychloroquine and repeat EKG in 2-3 weeks Discussed risk of retinopathy associated with hydroxychloroquine. 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 Panel 3 Months M32.9 - Systemic lupus erythematosus, unspecified Erythrocyte Sedimentation Rate 3 Months M32.9 - Systemic lupus erythematosus, unspecified Anti DNA DS Antibody 3 Months M32.9 - Systemic lupus erythematosus, unspecified Complement C3 3 Months M32.9 - Systemic lupus erythematosus, unspecified DNA Double Stranded-Crithidia 3 Months M32.9 - Systemic lupus erythematosus, unspecified UA w Microscopic 3 Months M32.9 - Systemic lupus erythematosus, unspecified ECG 12 lead EKG Today Z79.899 - Other remote computer terminal operator (current) drug therapy Complete Blood Count Auto Diff 3 Months M32.9 - Systemic lupus erythematosus, unspecified C Reactive Protein 3 Months M32.9 - Systemic lupus erythematosus, unspecified Complement C4 3 Months M32.9 - Systemic lupus erythematosus, unspecified Protein Creatinine Ratio, Ur 3 Months M32.9 - Systemic lupus erythematosus, unspecified ECG 12 lead EKG Today Z79.899 - Other remote computer terminal operator (current) drug therapy Medications: New hydroxychloroquine 300 mg (1.5 x 200 mg) PO DAILY 135 tabs 0RF Coding Level of Care Code Est Pt Level 4 (13148) Diagnoses Systemic lupus erythematosus with other organ involvement, unspecified SLE type M32.19 Systemic lupus erythematosus type: unspecified Systemic lupus erythematosus organ involvement: other Long-term use of hydroxychloroquine Z79.899
[2023-08-19 14:39] VITALS: BP 152/66; PULSE 94; O2SAT 97; BMI 24.4
== END 2023-08-19 15:08 | disposition home or self-care (01) ==
PROVIDERS: PCP Internal Medicine; Visit Provider Student in an Organized Health Care Education/Training Program
DX: M32.19 Other organ or system involvement in systemic lupus erythematosus (principal); Z79.899 Other long term (current) drug therapy
CPT/HCPCS: 99214

== ENCOUNTER → 2023-08-19 14:18 | Outpatient (BNVA) | payer OTHER, SELFPAY | PROVIDERS: PCP Internal Medicine; Visit Provider Student in an Organized Health Care Education/Training Program | DX: M32.19 Other organ or system involvement in systemic lupus erythematosus (principal); Z79.899 Other long term (current) drug therapy | CPT/HCPCS: 99212 ==

== ENCOUNTER → 2023-08-20 08:00 | Outpatient (BNV) | payer OTHER, SELFPAY | PROVIDERS: PCP Internal Medicine; Visit Provider Radiology Diagnostic Radiology | DX: N63.21 Unspecified lump in the left breast, upper outer quadrant (principal) | CPT/HCPCS: 76642; 77065; G0279 ==

== ENCOUNTER 2023-08-20 08:01 | Outpatient (REF) | payer OTHER, SELFPAY ==
--- NOTE | ~2023-08-20 | US_ITS ---
EXAMINATION: MM DIAGNOSTIC DIGITAL BREAST TOMOSYNTHESIS, LEFT US BREAST LIMITED, LEFT CLINICAL INFORMATION: Spontaneous yellow nipple discharge left breast x2 weeks, pain upper outer quadrant left breast, and palpable lump upper outer quadrant left breast. Family history of breast cancer in daughter at age 42 as per technologist note. COMPARISON: Mammography: 05/10/2023, 05/01/2022, 04/18/2021, 03/21/2020, and dating back to 2014. TECHNIQUE: Digital left breast tomosynthesis is performed in both the craniocaudal and mediolateral oblique views along with computer-aided detection (CAD). Synthesized 2D images are generated from the tomosynthesis. In addition, 3-D exaggerated lateral left full-field CC view, and full-field 3-D left ML view were also obtained, along with 3-D spot compression left MLO and CC views of the palpable focus. FINDINGS: There are scattered areas of fibroglandular density (ACR BI-RADS breast composition Category b). Markers have been placed in the upper outer left breast marking the regions of pain and palpable concern with the aid of the patient. There is no underlying mass, abnormal calcifications, or architectural abnormality. No abnormal lymph nodes are noted in the axillary region. A minor asymmetry in the lateral upper left breast dissipates on spot compression view, consistent with overlapping fibroglandular tissues. A 3 mm oval circumscribed isodense mass has a small fatty hilum and is consistent with an intramammary lymph node in the inferomedial left breast, anterior one third. No definite retroareolar abnormality or mass identified. We will evaluate these areas with ultrasound. Parenchymal pattern is stable from prior exams. No suspicious abnormalities identified by mammography, and no correlate to the regions of pain and palpable concern. No skin or axillary abnormality. ULTRASOUND: CLINICAL INFORMATION: As above. COMPARISON: None TECHNIQUE: Targeted sonographic evaluation was performed using a high frequency linear transducer. Attention was given to the left areas of palpable concern and pain, as well as the left retroareolar region for discharge. Selected archived documentation. FINDINGS: LEFT BREAST: There is a mixture of fatty and fibroglandular tissue. No suspicious mass is seen. There is no pathologic acoustic shadowing. There is no pathologic axillary adenopathy. In the retroareolar region, there is minimal lateral duct ectasia, without evidence of focal intraductal mass or abnormal intraductal echogenic material. No sonographic correlate to the regions of palpable concern, breast pain, for explanation for nipple discharge. US/US breast LT limited mamm only IMPRESSION: -There are no findings suspicious for malignancy in the left breast. -There is no mammographic or sonographic correlate to regions of breast pain, palpable concern in the upper outer quadrant, nor retroareolar abnormality to explain spontaneous breast discharge. -Minimal lateral duct ectasia noted in the lateral retroareolar region without intraductal abnormality. Should the patient continue to have discharge, enhanced breast MRI would be indicated. -Otherwise, recommend returning to routine annual screening. OVERALL ASSESSMENT: Mammography: BI-RADS 2 - Benign Findings Ultrasound: BI-RADS 2 - Benign Findings RECOMMENDATION: 1. Patient should be managed based on the clinical impression. 2. Otherwise, routine annual screening mammography. This patient's information was entered into a reminder system with a target due date for their next mammogram.
== END 2023-08-20 08:02 | disposition home or self-care (01) ==
LOC: HO.MAMMO 08:01
PROVIDERS: PCP Internal Medicine; Visit Provider Internal Medicine
DX: N64.4 Mastodynia (principal); N64.52 Nipple discharge; M32.9 Systemic lupus erythematosus, unspecified; Z79.899 Other long term (current) drug therapy; Z13.220 Encounter for screening for lipoid disorders; Z00.01 Encounter for general adult medical examination with abnormal findings; Z13.6 Encounter for screening for cardiovascular disorders
CPT/HCPCS: 36415; 76642; 77061; 77065; 80053; 80061; 81001; 82570; 84156; 85025; 85652; 86140; 86160; 86225; 86255; 93005

== ENCOUNTER → 2023-08-20 09:17 | Outpatient (REF) | payer OTHER, SELFPAY ==
[2023-08-20 09:37] LABS: MANUAL DIFF FLAG NO
--- NOTE | 2023-08-20 09:45 | ECG_ITS ---
Test Reason : HALF-WAY MED THERAPY Blood Pressure : / mmHG Vent. Rate : 075 BPM Atrial Rate : 075 BPM P-R Int : 154 ms QRS Dur : 084 ms QT Int : 392 ms P-R-T Axes : 057 043 042 degrees QTc Int : 437 ms Normal sinus rhythm Normal ECG When compared with ECG of 31-MAR-2022 07:30, No significant change was found Referred By: Anh Gerardo Electronically Signed By:GEMMA SALINAS MD
[2023-08-20 09:47] LABS: Basophils Absolute Auto 0.1 X10*3/uL (0.0-0.2); Basophils Percent Auto 1.3 % (0-2); Eosinophils Absolute Auto 0.6 X10*3/uL (0.0-0.4); Eosinophils Percent Auto 13.4 % (0-4); Hematocrit 42.6 % (37.0-47.0); Hemoglobin 14.2 g/dl (12.0-16.0); Imm Gran Abs Auto 0.01 X10*3/uL (0.00-0.03); Imm Gran Pct Auto 0.2 % (0.0-0.4); Lymphocytes Absolute Auto 1.2 X10*3/uL (1.2-4.9); Mean Corpuscular HGB Conc 33.3 g/dl (31.0-35.0); Mean Corpuscular Hemoglobin 30.5 pg (27.0-33.0); Mean Corpuscular Volume 91.6 fL (80.0-98.0); Monocytes Absolute Auto 0.4 X10*3/uL (0.1-1.2); Monocytes Percent Auto 8.8 % (2-11); Neutrophils Absolute Auto 2.5 x10*3/uL (2.0-8.3); Neutrophils Percent Auto 52.3 % (45-73); Platelet Count 175 X10*3/uL (160-400); Red Blood Count 4.65 X10*6/uL (4.20-5.50); Red Cell Distribution Width 13.2 % (11.0-16.0); White Blood Count 4.8 X10*3/uL (4.8-10.8)
[2023-08-20 10:22] LABS: Alanine Aminotransferase 18 U/L (0-31); Albumin Level 4.5 g/dL (3.5-5.0); Alkaline Phosphatase 79 U/L (39-117); Anion Gap 12 (12-20); Aspartate Amino Transferase 19 U/L (5-31); Bilirubin Total 0.4 mg/dL (0.0-1.0); Blood Urea Nitrogen 9 mg/dL (9-16); C Reactive Protein 0.42 mg/dL (< or = 0.50); Calcium 9.5 mg/dL (8.4-10.2); Carbon Dioxide 27 mmol/L (22-29); Chloride 108 mmol/L (96-108); Cholesterol 201 mg/dL (<200); Estimated Glomerular Filt Rate > 60; Glucose Random 100 mg/dL (60-115); HDL Cholesterol 73 mg/dL (>40); LDL Cholesterol Calculated 112 mg/dL (<100); Potassium 4.1 mmol/L (3.3-5.1); Sodium 143 mmol/L (135-145); Total Protein 7.9 g/dL (6.5-8.0); Triglycerides 80 mg/dL (<150)
[2023-08-20 10:26] LABS: Erythrocyte Sedimentation Rate 7 MM/HR (0-20)
[2023-08-20 10:58] LABS: Appearance Urine Clear; Color Urine Yellow; Glucose Urine UA Negative (Negative); Leukocyte Esterase Urine Trace (Negative); Nitrite Urine Negative (Negative); Specific Gravity - Urine <= 1.005 (1.005-1.025); UMIC TRIGGER UA YES; Urine Blood Negative (Negative); Urine Ketones Negative (Negative); Urine Protein Negative (Neg-Trace)
[2023-08-20 11:02] LABS: Bacteria Urine None Seen (None Seen); Hyaline Casts Urine 0-2 /LPF (0-2); RBC Urine 0-2 /HPF (0-2); Squamous Epithelial Cell Urine 0-2 /HPF (0-2); WBC Urine 0-5 /HPF (0-5)
[2023-08-20 11:12] LABS: Creatinine Urine 26.49 mg/dL; Total Protein Urine Random < 7 mg/dL (<12)
[2023-08-23 10:08] LABS: Complement C3 96 mg/dL (83-193)
[2023-08-23 22:09] LABS: Anti DNA DS Antibody 49 IU/mL
[2023-08-27 13:38] LABS: DNAds, Crithidia Antibody Negative (Negative)
== END ==
LOC: HO.CARD 09:17
PROVIDERS: PCP Internal Medicine; Visit Provider Student in an Organized Health Care Education/Training Program
DX: Z13.89 Encounter for screening for other disorder (principal)
CPT/HCPCS: 36415; 80053; 80061; 81001; 82570; 84156; 85025; 85652; 86140; 86160; 86225; 86255; 93005

== ENCOUNTER → 2023-08-20 09:45 | Outpatient (BNV) | payer OTHER, SELFPAY | PROVIDERS: PCP Internal Medicine; Visit Provider Internal Medicine Cardiovascular Disease | DX: Z79.899 Other long term (current) drug therapy (principal) | CPT/HCPCS: 93010 ==

== ENCOUNTER 2023-08-25 09:53 | Outpatient (REF) | payer OTHER, SELFPAY ==
--- NOTE | ~2023-08-25 | US_ITS ---
EXAMINATION: US EXTRACRANIAL CAROTID DUPLEX, BILATERAL CLINICAL INFORMATION: Carotid bruit. History of smoking. Hypertension. Hyperlipidemia. COMPARISON: None available. TECHNIQUE: Real-time ultrasound and Doppler techniques (integrating B-mode 2-D vascular images, Doppler spectral analysis and color-flow Doppler imaging) were utilized to interrogate the extracranial carotid arteries, the vertebral arteries and proximal subclavian arteries bilaterally. The degree of stenosis is determined by criteria similar to NASCET. FINDINGS: Right Side: 1. There is mild atherosclerotic plaque seen in the bifurcation/proximal ICA region. 2. The common carotid artery PSV proximally is 79 cm/s and distally 82 cm/s. 3. The proximal internal carotid artery velocities are 78 cm/s systolic and 19 cm/s diastolic. 4. The proximal external carotid artery PSV is 213 cm/s. 5. The vertebral artery shows anterior flow. 6. The subclavian artery waveforms are normal. Left Side: 1. There is mild atherosclerotic plaque seen in the bifurcation/proximal ICA region. 2. The common carotid artery PSV proximally is 86 cm/s and distally 99 cm/s. 3. The proximal internal carotid artery velocities are 111 cm/s systolic and 22 cm/s diastolic. 4. The proximal external carotid artery PSV is 216 cm/s. 5. The vertebral artery shows antegrade flow. 6. The subclavian artery waveforms are normal. US/US carotid duplex BI IMPRESSION: 1. RIGHT: Minimal, non-hemodynamically significant stenosis of the proximal right internal carotid artery corresponding to a 0-49% stenosis by velocity criteria. 2. LEFT: Minimal, non-hemodynamically significant stenosis of the proximal left internal carotid artery corresponding to a 0-49% stenosis by velocity criteria. 3. Elevated velocities proximal external carotid arteries bilaterally consistent with hemodynamically significant stenoses, which could explain carotid bruits.
== END 2023-08-25 09:54 | disposition home or self-care (01) ==
LOC: HO.US 09:53
PROVIDERS: PCP Internal Medicine; Visit Provider Internal Medicine
DX: R09.89 Other specified symptoms and signs involving the circulatory and respiratory systems (principal); Z87.898 Personal history of other specified conditions
CPT/HCPCS: 93880

== ENCOUNTER 2023-09-15 10:41 | Outpatient (AMB) | payer OTHER, SELFPAY ==
[2023-09-15 10:43] VITALS: BP 126/60; PULSE 89; O2SAT 98; BMI 24.1
--- NOTE | 2023-09-15 10:43 | A.OFFPC_ITS ---
Vital Signs 09/15/23 10:43 Height 5 ft 5 in Weight 145 lb BMI 24.1 BP 126/60 Blood Pressure Location Lt brachial Position Sitting Pulse 89 Pulse Source Pulse Oximeter Pulse Oximetry (%) 98 Oxygen Delivery Method Room Air Intake Visit Reasons: Follow-up lipids, test results Intake Note: Pt is here today for her f/u carotid u/s results Allergies prednisone Adverse Reaction (Intermediate, Verified 09/15/23 11:11) Anxiety Medication List - Last Reconciled 09/15/23 by Osiris Soni MD ascorbic acid (vitamin C) mg PO bupropion HCl 1 tab PO DAILY diclofenac sodium 1% 2 grams topical BID PRN escitalopram oxalate 10 mg PO DAILY@1300 PRN fluticasone propionate 50 mcg/actuation (Flonase Allergy Relief) 2 sprays intranasal DAILY gabapentin 1 tab PO DAILY geriatric [id number] (Centravites 50 Plus tablet) 1 tab PO DAILY hydroxychloroquine 300 mg (1.5 x 200 mg) PO DAILY ketoconazole 2% 1 appl topical MOFR@0900 [Levbid ] loratadine 10 mg PO DAILY lorazepam 0.5 mg PO DAILY PRN melatonin 10 mg PO BEDTIME PRN omeprazole 20 mg PO DAILY PRN tacrolimus 0.1% 1 applic topical Q OTHER DAY tamsulosin 0.4 mg PO BEDTIME 90 days [thumb spica wear nightly & as much as possible throughout the day] triamcinolone acetonide 0.1% 1 appl topical BID PRN zolpidem 2.5 mg PO BEDTIME PRN Tobacco use date assessed: 09/15/23 Fall risk assessment: 1 Fall in past year Last assessed Fall Risk: 09/15/23 Dental Screening Dental Screen Date: 08/17/23 Did you have a dental visit in the last 12 months?: Yes Did you have a dental problem in the last 6 months where you did not have access to dental care?: No Was dental information given to patient?: Patient has dentist HPI Follow-up lipids, test results HPI Details 68-year-old lady with history hyperlipid emia , and hypertension, diet controlled, here today for follow-up. She has been feeling well, no complaints at present time. She also had a recent carotid ultrasound done as questionable carotid bruit heard on last visit, with test results showed minimal, non- hemodynamically significant stenosis of the proximal right i and left nternal carotid artery corresponding to a 0-49% stenosis by velocity criteria.. Elevated velocities proximal external carotid arteries bilaterally consistent with hemodynamically significant stenoses, which could explain carotid bruits. Which is more dangerous, stenosis of the internal carotid or external carotid artery which could explain carotid bruits. She currently does not have any chest pain, no shortness of breath, no headache or changes in vision. Recent fasting labs showed a total cholesterol of 2 1, with LDL cholesterol at 112 and triglycerides at 80 mg per dL it is to be noted however that her LDL cholesterol is progressively increasing as compared to previous checks. [facility] in coronary arteries [facility] Medical History Right carotid bruit Neuropathy Diverticulitis Bipolar 1 disorder GERD (gastroesophageal reflux disease) Disc degeneration, lumbar Spondylosis of lumbar joint History of cervical cancer Irritable bowel syndrome with constipation Weak urinary stream Surgical menopause Osteopenia Essential hypertension Dyslipidemia Anxiety Surgical History History of cardiac cath Hx of esophagogastroduodenoscopy Hx of colonoscopy History of partial hysterectomy Family History Father Throat cancer Mother No problems noted. Brother No problems noted. Sister No problems noted. Sister No problems noted. Sister No problems noted. Sister Hyperlipidemia HTN (hypertension) Depression Myocardial infarction Daughter No problems noted. Daughter No problems noted. Daughter No problems noted. Daughter No problems noted. Paternal Aunt Rheumatoid arthritis Other Mental health disorder Substance use disorder Social History Housing: Apartment Alcohol intake: current Alcohol intake frequency: does not drink Alcohol type: wine Patient Tobacco Use Status: Former Tobacco user e-Cigarette/Vaping Use: Never Used Advance Directives Date on File: 12/21/19 service: No Current occupational status: unemployed Cognitive needs: No Hearing needs: No Vision needs: No Questionnaire Thrive Questionnaire Date Thrive assessed: 08/17/23 THRIVE Score: 0 GEETA-7 AMB Questionnaire GEETA-7 Date GEETA - 7 assessed: 08/17/23 Source: Developed by Drs. Howie Leavitt, Ellie Kirkpatrick, Ponce Magdaleno and colleagues, with an educational nathanael from [employer]. Review of Systems Const Denies fever(s), Denies headache(s) and Denies weakness Eyes Denies change in vision ENT Denies headache(s) and Denies nasal congestion Card Denies chest pain, Denies lightheadedness, Denies palpitations and Denies dyspnea Resp Denies chest congestion, Denies cough, Denies dyspnea and Denies wheezing GI Reports no additional complaints Denies urinary frequency, Denies dysuria and Denies urinary urgency Musc Reports stiffness Skin/Breast Denies lesions and Denies rash Neuro Denies headache(s) and Denies weakness Endo Denies polydipsia, Denies polyuria and Denies palpitations Albino/Lymph Denies easy bruising Aller/Immun Denies seasonal rhinorrhea and Denies wheezing Physical exam (Primary Care) Vital Signs: Last Vital Signs Pulse 89 09/15/23 10:43 BP 126/60 09/15/23 10:43 Pulse Ox 98 09/15/23 10:43 Oxygen Delivery Method Room Air 09/15/23 10:43 BMI result Body Mass Index 24.1 Tobacco/Smoking Status: Tobacco use Status Tobacco use date assessed 09/15/23 09/15/23 10:49 Patient Tobacco Use Status Former Tobacco user 09/15/23 10:49 e-Cigarette/Vaping Use Never Used 09/15/23 10:49 Thrive Assessment: Date of Thrive Assessment Date Thrive assessed 08/17/23 09/15/23 10:49 Const Other: Alert oriented x3, no acute distress noted, ambulatory with normal gait [facility] General nose exam: Normal external nose present and No nasal discharge present Mouth: Normal oral and palatal mucosa present and tongue normal Eyes General: appearance normal, both eyes and all related structures Periorbital: periorbital findings normal Conjunctivae: conjunctivae normal Pupils: Equal, round and reactive pupils present EOM: EOMs intact bilaterally Neck Neck: Yes full ROM and Yes supple Resp Effort & Inspection: normal respiratory effort and able to speak in complete sentences Auscultation: clear to auscultation bilaterally Cardio Other: S1-S2 present regular rate and rhythm GI Palpation (GI): Soft to palpation, nontender, no guarding and no masses General: Yes no CVA tenderness Back/Spine/Pelvis Back: no CVA tenderness Skin General skin exam: no rashes or lesions noted Neuro General: gait normal, tone normal, moves all extremities, Normal light touch and pain sensation and no focal motor deficits Cranial nerves: Yes Equal, round and reactive pupils present Extrem General: Yes full ROM, Yes no joint enlargement, Yes no clubbing, cyanosis or edema and Yes normal gait Results Reviewed Results Reviewed: NTERED: 08/20/23 [facility] DR: Anh Gerardo MD ORDERED: CMP, C Reactive Prot, Lipid Panel Test Result Flag Reference Sodium 143 135-145 mmol/L Potassium 4.1 3.3-5.1 mmol/L CL 108 96-108 mmol/L CO2 27 22-29 mmol/L Gap 12 12-20 BUN 9 9-16 mg/dL Creat 0.75 0.5-1.4 mg/dL EGFR > 60 NOTE: For -[place] Citizen individuals, multiply the result by 1.210. Chronic Kidney Disease: Estimated GFR < 60 mL/min/1.73m2 Severe Kidney Disease: Estimated GFR < 15 mL/min/1.73m2 Glucose, Random 100 60-115 mg/dL CA 9.5 8.4-10.2 mg/dL Total Bili 0.4 0.0-1.0 mg/dL AST (GOT) 19 5-31 U/L ALT (GPT) 18 0-31 U/L CRP 0.42 < or = 0.50 mg/dL Protein, Total 7.9 6.5-8.0 g/dL Alb 4.5 3.5-5.0 g/dL Triglyceride 80 <150 mg/dL Desirable Triglyceride: less than 150 mg/dL Borderline High Triglyceride 150-199 mg/dL High Triglyceride: 200-499 mg/dL Very High Triglyceride: greater than or equal to 5OO mg/dL Cholesterol 201 H <200 mg/dL Desirable Cholesterol: less than 200 mg/dL Borderline High Cholesterol: 200-239 mg/dL High Cholesterol: greater than 239 mg/dL LDL Calculated 112 H <100 mg/dL Desirable LDL: less than 100 mg/dL Near Optimal/Above Optimal LDL: 110-129 mg/dL Borderline High LDL: 130-159 mg/dL High LDL: 160-189 mg/dL Very High LDL: greater than or equal to 190 mg/dL HDL 73 >40 mg/dL Desirable HDL: greater than 40 mg/dL Note: This HDL assay may give artificially low results in patients with liver disease. Alk Phos 79 39-117 U/L Assessment and Plan Assessment & Plan (1) Dyslipidemia: Code(s): E78.5 - Hyperlipidemia, unspecified Plan: Reviewed recent fasting lab results with patient, which showed LDL cholesterol at 112 mg/dL, noted to be steadily increasing as compared to previous checks. Reinforced importance of following a low-cholesterol diet and getting regular ex ercise at least 15 minutes of cardio exercise 3 to 4 times a week. (2) Essential hypertension: Code(s): I10 - Essential (primary) hypertension Plan: Blood pressure at goal of less than 130/80. Reinforced importance of following a low sodium diet, getting regular exercise, and lowering stress levels. Orders: Orders Lipid Panel 04/30/24 E78.5 - Hyperlipidemia, unspecified, I10 - Essential (primary) hypertension, I87.2 - Venous insufficiency (chronic) (peripheral), N95.1 - Menopausal and female climacteric states Aspartate Amino Transferase 04/30/24 E78.5 - Hyperlipidemia, unspecified, I10 - Essential (primary) hypertension, I87.2 - Venous insufficiency (chronic) (peripheral), N95.1 - Menopausal and female climacteric states Vitamin D 25-OH Total 04/30/24 E78.5 - Hyperlipidemia, unspecified, I10 - Essential (primary) hypertension, I87.2 - Venous insufficiency (chronic) (peripheral), N95.1 - Menopausal and female climacteric states Basic Metabolic Panel Fasting 04/30/24 E78.5 - Hyperlipidemia, unspecified, I10 - Essential (primary) hypertension, I87.2 - Venous insufficiency (chronic) (p eripheral), N95.1 - Menopausal and female climacteric states Alanine Aminotransferase 04/30/24 E78.5 - Hyperlipidemia, unspecified, I10 - Essential (primary) hypertension, I87.2 - Venous insufficiency (chronic) (peripheral), N95.1 - Menopausal and female climacteric states Coding Level of Care Code Est Pt Level 4 (72402) Diagnoses Dyslipidemia E78.5 Essential hypertension I10
== END 2023-09-15 13:13 | disposition home or self-care (01) ==
PROVIDERS: PCP Internal Medicine; Visit Provider Internal Medicine
DX: E78.5 Hyperlipidemia, unspecified (principal); I10 Essential (primary) hypertension
CPT/HCPCS: 99214

== ENCOUNTER 2023-11-17 09:22 | Outpatient (REF) | payer OTHER, SELFPAY ==
[2023-11-17 10:47] LABS: Alanine Aminotransferase 29 U/L (0-31); Anion Gap 11 (12-20); Aspartate Amino Transferase 25 U/L (5-31); Blood Urea Nitrogen 9 mg/dL (9-16); Calcium 9.9 mg/dL (8.4-10.2); Carbon Dioxide 30 mmol/L (22-29); Chloride 106 mmol/L (96-108); Cholesterol 159 mg/dL (<200); Estimated Glomerular Filt Rate > 60; Glucose Fasting 92 mg/dL (60-99); HDL Cholesterol 73 mg/dL (>40); LDL Cholesterol Calculated 73 mg/dL (<100); Potassium 4.7 mmol/L (3.3-5.1); Sodium 142 mmol/L (135-145); Triglycerides 66 mg/dL (<150)
[2023-11-17 10:54] LABS: Vitamin D 25-OH Total 41.2 ng/mL (>30)
== END 2023-11-17 09:23 | disposition home or self-care (01) ==
LOC: HO.LAB 09:22
PROVIDERS: PCP Internal Medicine; Visit Provider Internal Medicine
DX: N95.1 Menopausal and female climacteric states (principal); E78.5 Hyperlipidemia, unspecified; I10 Essential (primary) hypertension; I87.2 Venous insufficiency (chronic) (peripheral)
CPT/HCPCS: 36415; 80048; 80061; 82306; 84450; 84460

== ENCOUNTER 2023-11-23 10:32 | Outpatient (AMB) | payer OTHER, SELFPAY ==
--- NOTE | 2023-11-23 10:34 | A.OFFVIS_ITS ---
Vital Signs 11/23/23 10:38 Height 5 ft 5 in Weight 141 lb 15.643 oz BMI 23.6 BP 128/62 Blood Pressure Location Rt brachial Position Sitting Pulse 85 Pulse Source Pulse Oximeter Pulse Oximetry (%) 97 Oxygen Delivery Method Room Air Intake Visit Reasons: SLE Intake Note: Patient presents for SLE. Allergies prednisone Adverse Reaction (Intermediate, Verified 11/23/23 10:37) Anxiety Medication List - Last Reconciled 11/23/23 by Anh Gerardo MD ascorbic acid (vitamin C) mg PO bupropion HCl 1 tab PO DAILY diclofenac sodium 1% 2 grams topical BID PRN escitalopram oxalate 10 mg PO DAILY@1300 PRN fluticasone propionate 50 mcg/actuation (Flonase Allergy Relief) 2 sprays intranasal DAILY gabapentin 1 tab PO DAILY geriatric omivkguc-ynza-qjbh (Centravites 50 Plus tablet) 1 tab PO DAILY hydroxychloroquine 300 mg (1.5 x 200 mg) PO DAILY ketoconazole 2% 1 appl topical MOFR@0900 [Levbid ] loratadine 10 mg PO DAILY lorazepam 0.5 mg PO DAILY PRN melatonin 10 mg PO BEDTIME PRN omeprazole 20 mg PO DAILY PRN tacrolimus 0.1% 1 applic topical Q OTHER DAY tamsulosin 0.4 mg PO BEDTIME 90 days [thumb spica wear nightly & as much as possible throughout the day] triamcinolone acetonide 0.1% 1 appl topical BID PRN zolpidem 2.5 mg PO BEDTIME PRN HPI Comments Details: 68-year-old female with newly diagnosed lupus returns for follow-up. She has been taking hydroxychloroquine 200 mg daily for the last 3 months or so. She states that her joint pains are improved overall. She gets rare pains in her hands and bilateral knee pain especially with going up and down the stairs. Has not noticed any rashes. She states that since she started hydroxychloroquine she has episodes that she feels spaced out she also does not have a good appetite and last 3-4 lb over the last 3 months. She has noticed that there is soap like appearance of her urine. She was evaluated by an chemical plant operator and will go back for OCT testing Initial history: This is a 67-year-old female who presents for evaluation of gen eralized osteoarthritis. Patient states that she has been having low back pain, she also has burning along the outside of her left hip going all the way to her left foot. With regards to her back pain. She was evaluated by Dr. Child 3 months ago and an epidural steroid injection was suggested. Patient had 2 epidural steroid injections in the past and they were helpful for the back pain as well as the burning on the outside of her hip. Patient was hesitant about the procedure. Dr. Posey asked patient to increase her gabapentin to 900 mg 3 times a day, patient was afraid of high dose. She also states that she gets pain and stiff of her left middle finger. She also gets some pain and stiffness of her thumbs especially with use. She applies Voltaren gel twice daily when her fingers hurt. [facility] Medical History Venous insufficiency Right carotid bruit Diverticulitis Bipolar 1 disorder GERD (gastroesophageal reflux disease) History of cervical cancer Irritable bowel syndrome with constipation Weak urinary stream Surgical menopause Osteopenia Essential hypertension Dyslipidemia Anxiety Surgical History History of cardiac cath Hx of esophagogastroduodenoscopy Hx of colonoscopy History of partial hysterectomy Family History Father Throat cancer Mother No problems noted. Brother No problems noted. Sister No problems noted. Sister No problems noted. Sister No problems noted. Sister Hyperlipidemia HTN (hypertension) Depression Myocardial infarction Daughter No problems noted. Daughter No problems noted. Daughter No problems noted. Daughter No problems noted. Paternal Aunt Rheumatoid arthritis Other Mental health disorder Substance use disorder Social History Housing: Apartment Alcohol intake: current Alcohol intake frequency: does not drink Alcohol type: wine Patient Tobacco Use Status: Former Tobacco user e-Cigarette/Vaping Use: Never Used Advance Directives Date on File: 12/21/19 service: No Current occupational status: unemployed Cognitive needs: No Hearing needs: No Vision needs: No Female Reproductive History Menstrual Menopause type: natural Total pregnancies: 5 Full term: 4 Number of Living Children: 3 Ab spontaneous: 1 Date of Mammogram: 05/10/23 Review of Systems Const Denies fatigue, Denies fever(s), Reports poor appetite and Reports weight loss Details: Abnormal urine Musc Reports arthralgias and Reports joint swelling Neuro Details: Brain fog Endo Denies fatigue Physical Exam Vital Signs: Last Vital Signs Pulse 85 11/23/23 10:38 BP 128/62 11/23/23 10:38 Pulse Ox 97 11/23/23 10:38 Oxygen Delivery Method Room Air 11/23/23 10:38 BMI result Body Mass Index 23.6 Const General: cooperative, healthy appearing and comfortable Nutritional Appearance: average body habitus Orientation/consciousness: patient oriented x3 Limitations: no limitations HEENT Head: Yes normocephalic and Yes atraumatic Mouth: moist mucous membranes Resp Effort & Inspection: normal respiratory effort and able to speak in complete sentences Auscultation: clear to auscultation bilaterally Cardio Rate: regular rate Rhythm: regular rhythm Skin General skin exam: no rashes or lesions noted Neuro General: patient oriented x3 Extrem Other: Osteoarthritic changes of both hands with Nick's and Heberden's nodes No active synovitis today Assessment & Plan Assessment & Plan (1) SLE (systemic lupus erythematosus): Comment: dx 08/2023 (inflammatory arthritis, ? Skin rashes, ++ SCOTT ++ dsDNA + RF) HCQ 08/2023 Code(s): M32.9 - Systemic lupus erythematosus, unspecified Category: Medical Qualifiers: Systemic lupus erythematosus type: unspecified Systemic lupus erythematosus organ involvement: other Qualified Code(s): M32.19 - Other organ or system involvement in systemic lupus erythematosus Plan: This is a 68-year-old female with newly diagnosed lupus who presents for follow- up. She has been taking hydroxychloroquine 300 mg daily with resolution of inflammatory arthritis. She states however that since she started taking hydroxychloroquine she has noticed spacing out this may be brain fog. She has also noticed changes in her urine Check SLE activity labs today, can reduce hydroxychloroquine to 200 mg daily Labs before next visit in 3 months (2) Long-term use of hydroxychloroquine: Code(s): Z79.899 - Other residential (current) drug therapy Category: Medical Plan: Patient aware of risk of retinopathy with hydroxychloroquine. She was evaluated by chemical plant operator Dr. Culver Plan I spent 29 minutes reviewing patient's chart, evaluating patient, ordering diagnostic workup, counseling patient and documenting in the chart Orders: Orders Anti DNA DS Antibody 3 Months M32.19 - Other organ or system involvement in systemic lupus erythematosus DNA Double Stranded-Crithidia 3 Months M32.19 - Other organ or system involvement in systemic lupus erythematosus Erythrocyte Sedimentation Rate 3 Months M32.19 - Other organ or system involvement in systemic lupus erythematosus Protein Creatinine Ratio, Ur 3 Months M32.19 - Other organ or system involvement in systemic lupus erythematosus Complete Blood Count Auto Diff 3 Months M32. - Other organ or system involvement in systemic lupus erythematosus Comprehensive Met. Panel 3 Months .19 - Other organ or system involvement in systemic lupus erythematosus Anti DNA DS Antibody Today M3. - Other organ or system involvement in systemic lupus erythematosus Complement C3 Today M3. - Other organ or system involvement in systemic lupus erythematosus C Reactive Protein Today M3. - Other organ or system involvement in systemic lupus erythematosus DNA Double Stranded-Crithidia Today M3.19 - Other organ or system involvement in systemic lupus erythematosus Erythrocyte Sedimentation Rate Today M32.19 - Other organ or system involvement in systemic lupus erythematosus Protein Creatinine Ratio, Ur Today M3. - Other organ or system involvement in systemic lupus erythematosus Complement C3 3 Months M32.19 - Other organ or system involvement in systemic lupus erythematosus Complement C4 3 Months M32.19 - Other organ or system involvement in systemic lupus erythematosus C Reactive Protein 3 Months M32.19 - Other organ or system involvement in systemic lupus erythematosus UA w Microscopic 3 Months M32.19 - Other organ or system involvement in systemic lupus erythematosus Complement C4 Today M3. - Other organ or system involvement in systemic lupus erythematosus UA w Microscopic Today M3.19 - Other organ or system involvement in systemic lupus erythematosus Complete Blood Count Auto Diff Today . - Other organ or system involvement in systemic lupus erythematosus Comprehensive Met. Panel Today . - Other organ or system involvement in systemic lupus erythematosus Coding Level of Care Code Est Pt Level 4 (96837) Diagnoses Systemic lupus erythematosus with other organ involvement, unspecified SLE type M3. Systemic lupus erythematosus type: unspecified Systemic lupus erythematosus organ involvement: other Long-term use of hydroxychloroquine Z79.899
[2023-11-23 10:38] VITALS: BP 128/62; PULSE 85; O2SAT 97; BMI 23.6
== END 2023-11-23 11:11 | disposition home or self-care (01) ==
PROVIDERS: PCP Internal Medicine; Visit Provider Student in an Organized Health Care Education/Training Program
DX: M32.19 Other organ or system involvement in systemic lupus erythematosus (principal); Z79.899 Other long term (current) drug therapy
CPT/HCPCS: 99214

== ENCOUNTER 2023-11-23 10:32 | Outpatient (REF) | payer OTHER, SELFPAY ==
[2023-11-23 11:50] LABS: MANUAL DIFF FLAG NO
[2023-11-23 12:34] LABS: Basophils Absolute Auto 0.1 X10*3/uL (0.0-0.2); Basophils Percent Auto 1.2 % (0-2); Eosinophils Absolute Auto 0.7 X10*3/uL (0.0-0.4); Hematocrit 44.6 % (37.0-47.0); Hemoglobin 15.1 g/dl (12.0-16.0); Imm Gran Abs Auto 0.01 X10*3/uL (0.00-0.03); Imm Gran Pct Auto 0.2 % (0.0-0.4); Lymphocytes Percent Auto 22.6 % (20-40); Mean Corpuscular HGB Conc 33.9 g/dl (31.0-35.0); Mean Corpuscular Hemoglobin 30.8 pg (27.0-33.0); Mean Platelet Volume 11.8 fL (9.4-12.3); Monocytes Absolute Auto 0.4 X10*3/uL (0.1-1.2); Monocytes Percent Auto 10.1 % (2-11); Neutrophils Absolute Auto 2.1 x10*3/uL (2.0-8.3); Neutrophils Percent Auto 49.9 % (45-73); Platelet Count 174 X10*3/uL (160-400); Red Cell Distribution Width 13.3 % (11.0-16.0); White Blood Count 4.2 X10*3/uL (4.8-10.8)
[2023-11-23 12:36] LABS: Appearance Urine Clear; Color Urine Yellow; Glucose Urine UA Negative (Negative); Leukocyte Esterase Urine Large (3+) (Negative); Nitrite Urine Negative (Negative); PH 7.5 (5.0-9.0); UMIC TRIGGER UA YES; Urine Blood Negative (Negative); Urine Ketones Negative (Negative); Urine Protein Negative (Neg-Trace)
[2023-11-23 12:52] LABS: Bacteria Urine None Seen (None Seen); Hyaline Casts Urine 0-2 /LPF (0-2); RBC Urine 0-2 /HPF (0-2); WBC Urine 0-5 /HPF (0-5)
[2023-11-23 13:03] LABS: Alanine Aminotransferase 33 U/L (0-31); Albumin Level 4.5 g/dL (3.5-5.0); Alkaline Phosphatase 67 U/L (39-117); Anion Gap 12 (12-20); Aspartate Amino Transferase 25 U/L (5-31); Bilirubin Total 0.3 mg/dL (0.0-1.0); Blood Urea Nitrogen 10 mg/dL (9-16); C Reactive Protein 0.15 mg/dL (< or = 0.50); Calcium 10.2 mg/dL (8.4-10.2); Carbon Dioxide 29 mmol/L (22-29); Chloride 107 mmol/L (96-108); Estimated Glomerular Filt Rate > 60; Glucose Random 113 mg/dL (60-115); Potassium 4.8 mmol/L (3.3-5.1); Sodium 143 mmol/L (135-145); Total Protein 7.9 g/dL (6.5-8.0)
[2023-11-23 13:13] LABS: Erythrocyte Sedimentation Rate 4 MM/HR (0-20)
[2023-11-23 13:44] LABS: Total Protein Urine Random < 7 mg/dL (<12)
[2023-11-24 21:03] LABS: Anti DNA DS Antibody 53 IU/mL
[2023-11-24 23:19] LABS: Complement C3 104 mg/dL (83-193)
[2023-11-29 06:23] LABS: DNAds, Crithidia Antibody Negative (Negative)
== END 2023-11-23 10:33 | disposition home or self-care (01) ==
LOC: HO.LAB 10:32
PROVIDERS: PCP Internal Medicine; Visit Provider Student in an Organized Health Care Education/Training Program
DX: M32.19 Other organ or system involvement in systemic lupus erythematosus (principal); Z79.899 Other long term (current) drug therapy
CPT/HCPCS: 36415; 80053; 81001; 82570; 84156; 85025; 85652; 86140; 86160; 86225; 86255; 99212

== ENCOUNTER 2023-12-14 13:56 | Outpatient (AMB) | payer OTHER, SELFPAY ==
--- NOTE | 2023-12-14 14:13 | A.OFFVIS_ITS ---
Intake Visit Reasons: 6m/PVR Intake Note: Patient presents for follow up recurrent uti Urology Medication: tamsulosin Blood Thinner: none 1st attempt PVR: 430ml's; 2nd attempt: 220ml's Skin Care Instructor Required: No Accompanied by: Self / Same As Patient Allergies prednisone Adverse Reaction (Intermediate, Verified 12/14/23 20:42) Anxiety Medication List - Last Reconciled 12/14/23 by JASON Warren ascorbic acid (vitamin C) mg PO bupropion HCl 1 tab PO DAILY diclofenac sodium 1% 2 grams topical BID PRN escitalopram oxalate 10 mg PO DAILY@1300 PRN fluticasone propionate 50 mcg/actuation (Flonase Allergy Relief) 2 sprays intranasal DAILY gabapentin 1 tab PO DAILY geriatric pkpjugnd-yvft-kytj (Centravites 50 Plus tablet) 1 tab PO DAILY hydroxychloroquine 300 mg (1.5 x 200 mg) PO DAILY ketoconazole 2% 1 appl topical MOFR@0900 [Levbid ] loratadine 10 mg PO DAILY lorazepam 0.5 mg PO DAILY PRN melatonin 10 mg PO BEDTIME PRN omeprazole 20 mg PO DAILY PRN tacrolimus 0.1% 1 applic topical Q OTHER DAY terazosin 1 mg PO BEDTIME 30 days [thumb spica wear nightly & as much as possible throughout the day] triamcinolone acetonide 0.1% 1 appl topical BID PRN zolpidem 2.5 mg PO BEDTIME PRN HPI Comments Details: Jessa is a pleasant 67-year-old female patient of Dr. Soni. She has a past medical history of anxiety, arthritis, bipolar, degenerative disc disease, diverticulitis, dyslipidemia, hypertension, GERD, history of cervical cancer, irritable bowel syndrome with constipation, neuropathy, osteopenia. She presents to the office today for follow-up regarding her recurrent urinary tract infections. In discussion with the patient today she reports since her last office visit here approximately 6 months ago she has since been diagnosed with lupus. She reports compliance with Flomax as prescribed however has not been compliant with Estrace cream as she has been forgetting to apply this. She currently denies any bothersome urinary issues or concerns. In office urinalysis results reviewed with the patient today. Initial postvoid residual 430 mL however upon 2nd void/double void 220 mL. We discussed at length causes and affects of incomplete bladder emptying. Previous workup has included a retroperitoneal ultrasound noting bilateral kidneys with no lesions and or hydronephrosis noted. Left kidney with probable 1 by 8 x 9 mm peripelvic cyst in the upper pole. No imaging follow-up recommended per radiology report. The bladder is well distended. Bladder wall upper normal in thickness measuring 4 mm. No stone or masses visualized. Pre void bladder volume is approximately 400 mL. Postvoid bladder volume is approximately 150 mL. When asked she denies urinary urgency, urinary frequency, incontinence, nocturia, hematuria, dysuria, foul smelling urine, changes to urinary stream, flank pain, fever, and or chills. She is happy with her current voiding parameters. She otherwise offers no other issues or concerns at this time. [facility] Medical History Venous insufficiency Right carotid bruit Diverticulitis Bipolar 1 disorder GERD (gastroesophageal reflux disease) History of cervical cancer Irritable bowel syndrome with constipation Weak urinary stream Surgical menopause Osteopenia Essential hypertension Dyslipidemia Anxiety Surgical History History of cardiac cath Hx of esophagogastroduodenoscopy Hx of colonoscopy History of partial hysterectomy Family History Father Throat cancer Mother No problems noted. Brother No problems noted. Sister No problems noted. Sister No problems noted. Sister No problems noted. Sister Hyperlipidemia HTN (hypertension) Depression Myocardial infarction Daughter No problems noted. Daughter No problems noted. Daughter No problems noted. Daughter No problems noted. Paternal Aunt Rheumatoid arthritis Other Mental health disorder Substance use disorder Social History Housing: Apartment Alcohol intake: current Alcohol intake frequency: does not drink Alcohol type: wine Patient Tobacco Use Status: Former Tobacco user e-Cigarette/Vaping Use: Never Used Advance Directives Date on File: 12/21/19 service: No Current occupational status: unemployed Cognitive needs: No Hearing needs: No Vision needs: No Review of Systems Const Reports as per [facility] Eyes Reports no additional complaints ENT Reports no additional complaints Card Reports as per [facility] Resp Reports no additional complaints GI Reports as per [facility] Reports as per HPI Musc Reports as per HPI Neuro Reports as per HPI Psych Reports as per HPI Albino/Lymph Reports no additional complaints Aller/Immun Reports no additional complaints Physical Exam Const General: cooperative, healthy appearing, comfortable, no acute distress, well developed, alert and awake Nutritional Appearance: average body habitus Orientation/consciousness: patient oriented x3 Limitations: no limitations HEENT Head: Yes normal to inspection, Yes normocephalic and Yes atraumatic Ears: hearing grossly normal bilaterally Eyes General: appearance normal, both eyes and all related structures Neck Neck: Yes normal visual inspection and Yes trachea midline Chest Chest palpation & inspection: normal inspection of the chest Resp Effort & Inspection: normal respiratory effort and able to speak in complete sentences Cardio Rate: regular rate GI Inspection: Yes normal to inspection General: Yes no CVA tenderness Back/Spine/Pelvis Back: no CVA tenderness Skin General skin exam: no rashes or lesions noted Neuro General: patient oriented x3 Extrem General: Yes normal to inspection Psych Appearance: grossly normal and well kempt Mental Status: mental status grossly normal Speech and movement: Normal speech and movement present and Clear speech present Affect: normal affect Attitude: cooperative Thought process: Normal thought process present Thought content: Normal thought content present Insight: Fair insight present (Psych) Judgement: Fair judgement present (Psych) Office Procedures Post Void Residual Post Residual Void Post Void Residual (PVR): [id number] Void Residual by ultrasound Results AMB Urinalysis, Automated UA Leukoctes 0 Alexander/uL Last Edit by AlejoGlycodevivian Villa on 12/14/23 14:57 UA Nitrite Last Edit by BitTorrentvivian Villa on 12/14/23 14:57 UA Urobilinogen 0.2 mg/dL Last Edit by BitTorrentvivian Villa on 12/14/23 14:57 UA Protein 0 mg/dL Last Edit by BitTorrentvivian Villa on 12/14/23 14:57 UA pH 7.0 Last Edit by BitTorrentvivian Villa on 12/14/23 14:57 UA Blood 0 Sivakumar/uL Last Edit by Diane Villa on 12/14/23 14:57 UA Specific [place] 1.005 Last Edit by Diane Cartwrightcarline on 12/14/23 14:57 UA Ketone Last Edit by Diane Cartwrightcarline on 12/14/23 14:57 UA Bilirubin 0 mg/dL Last Edit by Alejoayo Gabbiecarline on 12/14/23 14:57 UA Glucose 0 mg/dL Last Edit by Alejoayo Gabbiecarline on 12/14/23 14:57 Results Reviewed Results Reviewed: Laboratory Last Values Urine pH (Auto) 7.0 12/14/23 14:23 Specific [place] (Auto) 1.005 12/14/23 14:23 Urine Protein (Auto) 0 mg/dL 12/14/23 14:23 Glucose (UA)(Auto) 0 mg/dL 12/14/23 14:23 Urine Blood (Auto) 0 Sivakumar/uL 12/14/23 14:23 Urine Bilirubin (Auto) 0 mg/dL 12/14/23 14:23 Urine Urobilinogen (Auto) 0.2 mg/dL 12/14/23 14:23 Leukocyte Esterase (Auto) 0 Alexander/uL 12/14/23 14:23 Assessment & Plan Assessment & Plan (1) Incomplete bladder emptying: Code(s): R33.9 - Retention of urine, unspecified Category: Medical (2) Recurrent UTI (urinary tract infection): Code(s): N39.0 - Urinary tract infection, site not specified Category: Medical (3) Renal cyst: Code(s): N28.1 - Cyst of kidney, acquired Category: Medical Plan In office urinalysis results reviewed with the patient today; as noted above. Initial PVR 430ml upon 2nd void/double voiding 220 mL. We discussed at length correlation of incomplete bladder emptying as well as recurrent urinary tract infections we discussed causes and affects of these urological issues. Stop Flomax. Start terazosin 1 mg at bedtime. Patient currently denies any bothersome urinary issues or concerns. She reports be happy with current voiding parameters. We discussed at length treatment options for incomplete bladder emptying to include CIC verses trial of InterStim. Follow-up in 3 months with PVR; or sooner with any issues, concerns, and or questions. Orders: Orders AMB Urinalysis Automated Today Z13.9 - Encounter for screening, unspecified AMB Post Void Residual by ultrasound Today R33.9 - Retention of urine, unspecified Medications: New terazosin 1 mg PO BEDTIME 30 caps 3RF 30 days R39.12 - Poor urinary stream Discontinued tamsulosin Discontinued Reason: Doctor's Order 0.4 mg PO BEDTIME 90 caps 11RF 90 days Patient Instructions: The patient had an opportunity to ask questions regarding the treatment plan. All questions were answered. Physical exam, labs, and imaging were discussed and reviewed in detail. As well as risks, benefits, and discussion of treatment choices. No major barriers to understanding were identified. The patient expressed understanding and agreement with the above treatment plan. The patient was made aware they should contact our office by phone for worsening of their current condition, the appearance of new symptoms, or with any questions or concerns. Compliance is encouraged with any medications and follow up testing that is ordered. It is a privilege to be allowed the opportunity to participate in? your urological care.? Again, if you have any questions or concerns If you have any questions or concerns please do not hesitate to contact me. The office is [phone]. This note is constructed using voice recognition software. While every effort has been made to ensure accuracy manager gas errors may have been included. Yours sincerely, JASON Warren Coding Level of Care Code Est Pt Level 4 (03750) Complex EM visit Add On G2211 Diagnoses Incomplete bladder emptying R33.9 Recurrent UTI (urinary tract infection) N39.0 Renal cyst N28.1 CPT Codes Post Residual Void - PVR CPT Code: 56748-Rkih Void Residual by ultrasound ([id number])
== END 2023-12-14 15:01 | disposition home or self-care (01) ==
PROVIDERS: PCP Internal Medicine; Visit Provider Nurse Practitioner Family
DX: R33.9 Retention of urine, unspecified (principal); N39.0 Urinary tract infection, site not specified; N28.1 Cyst of kidney, acquired; Z13.9 Encounter for screening, unspecified
CPT/HCPCS: 99214; G2211

== ENCOUNTER → 2023-12-14 13:56 | Outpatient (BNVA) | payer OTHER, SELFPAY | PROVIDERS: PCP Internal Medicine; Visit Provider Nurse Practitioner Family | DX: R33.9 Retention of urine, unspecified (principal); N39.0 Urinary tract infection, site not specified; N28.1 Cyst of kidney, acquired; R39.12 Poor urinary stream | CPT/HCPCS: 51798; 81003; 99212 ==

== ENCOUNTER 2024-01-07 09:37 | Day surgery (SDC) | payer OTHER, SELFPAY ==
[2024-01-07 10:06] VITALS: BP 164/80; PULSE 80; RESP 18; TEMP 36.4; O2SAT 100; BMI 24.2
[2024-01-07] MEDS: Lactated Ringers 1,000 ML 100 ML IVCONT (10:23)
--- NOTE | 2024-01-07 10:24 | MHC.SHP ---
Pre-Procedural Eval Section A - 24 Hr Update-Section A only Date of Service: 01/07/24 Section B - Complete if H&P > 30 days Chief Complaint: Encounter for screening for malignant neoplasm of Details of Present Illness: see H*P no changes Relevant Family History (Specify if Yes): Yes Relevant Social History: None Present Medications: see Short Stay Collaborative assessment Medical History: No relevant PMH History of Previous Operations: No relevant previous surgery Allergies: Allergies Allergy/AdvReac Type Severity Reaction Status Date / Time prednisone AdvReac Intermediate Anxiety Verified 12/14/23 20:42 Review of Systems Sugical H&P ROS: Negative: Constitution, Cardiovascular, Respiratory, Neurological, Psychiatric, Hem-Onc, Allergic/Immunologic, Gastrointestinal, Genitourinary, Musculoskeletal, Integumentary, Endocrine and Eyes/Ears/Nose/Throat Exam Surgical H&P Exam: Normal: HEENT, Normal: Heart, Normal: Lungs, Normal: Extremities, Normal: Abdomen, Normal: Skin and Normal: Neurological Plan Diagnosis/Plan: Unchanged I have reviewed the history and physical and performed a pertinent physical examination on my patient. No changes have occurred unless specified. Time Spent With Patient Time: Total time managing care of this patient today ____ minutes.
--- NOTE | 2024-01-07 10:25 | P.CONAN_ITS ---
Documented by User: Melina Edwards NP 01/06/24 09:28 HPI - Anesthesia Eval Consult details Narrative: 68yo F for Colonoscopy PMFSH Active Problems Active Problems: All Active Problems Renal cyst (Acute) Venous insufficiency (Acute) SLE (systemic lupus erythematosus) (Acute) Long-term use of hydroxychloroquine (Acute) Right carotid bruit (Acute) Arthritis of carpometacarpal (CMC) joint of both thumbs (Acute) Incomplete bladder emptying (Acute) Radiculopathy due to lumbar intervertebral disc disorder (Acute) Family history of malignant neoplasm of colon in relative diagnosed when younger than 50 years of age (Acute) 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 (Acute) Menopausal state (Acute) Primary osteoarthritis of both hands (Acute) ALONZO (obstructive sleep apnea) (Acute) Varicosities of leg (Acute) Recurrent UTI (urinary tract infection) (Acute) GERD (gastroesophageal reflux disease) (Acute) Irritable bowel syndrome with constipation (Acute) Surgical menopause (Acute) Osteopenia (Acute) Essential hypertension (Acute) Dyslipidemia (Acute) Anxiety (Acute) Past Medical History Medical History Venous insufficiency Right carotid bruit Diverticulitis Bipolar 1 disorder GERD (gastroesophageal reflux disease) History of cervical cancer Irritable bowel syndrome with constipation Weak urinary stream Surgical menopause Osteopenia Essential hypertension Dyslipidemia Anxiety Family History Family History Father Throat cancer Mother No problems noted. Brother No problems noted. Sister No problems noted. Sister No problems noted. Sister No problems noted. Sister Hyperlipidemia HTN (hypertension) Depression Myocardial infarction Daughter No problems noted. Daughter No problems noted. Daughter No problems noted. Daughter No problems noted. Paternal Aunt Rheumatoid arthritis Other Mental health disorder Substance use disorder Family history of problems with anesthesia: No Surgical History Surgical History History of cardiac cath Hx of esophagogastroduodenoscopy Hx of colonoscopy History of partial hysterectomy History of Problems with Anesthesia: No Social History Social History Housing: Apartment Alcohol intake: current Alcohol intake frequency: does not drink Alcohol type: wine Patient Tobacco Use Status: Former Tobacco user e-Cigarette/Vaping Use: Never Used Use of substances other than those prescribed or required for medical reasons: No Advance Directives: No Advance Directives Information Provided: Yes Advance Directives Date on File: 12/21/19 Recently lost weight without trying: Yes How much weight loss: 2-13 pounds Eating poorly because of decreased appetite: Yes Nutrition screen score: 4 Nutrition Risks: Anorexia service: No Current occupational status: unemployed Cognitive needs: No Hearing needs: No Vision needs: No Meds Allergies Allergy/AdvReac Type Severity Reaction Status Date / Time prednisone AdvReac Intermediate Anxiety Verified 12/14/23 20:42 Home Medications ?Medication ?Instructions ?Recorded ?Confirmed ?Last Taken ?Type escitalopram oxalate 10 mg tablet 10 mg PO DAILY@1300 PRN depression 02/02/20 08/19/23 Unknown History lorazepam 0.5 mg tablet 0.5 mg PO DAILY PRN Anxiety 02/02/20 01/07/24 01/07/24 09:00 History zolpidem 5 mg tablet 2.5 mg PO BEDTIME PRN Insomnia 03/04/21 08/19/23 Unknown History ketoconazole 2 % shampoo 1 appl topical MOFR@0900 05/19/21 08/19/23 03/29/22 History triamcinolone acetonide 0.1 % 1 appl topical BID PRN Dry Skin 05/19/21 08/19/23 Unknown History topical ointment bupropion HCl 75 mg tablet 1 tab PO DAILY 03/31/22 08/19/23 03/31/22 09:00 Hist ory gabapentin 600 mg tablet 1 tab PO DAILY 03/31/22 08/19/23 03/31/22 09:00 History geriatric mrkdipal-evyv-qfym 1 tab PO DAILY 03/31/22 08/19/23 03/31/22 09:00 History (Centravites 50 Plus tablet) tacrolimus 0.1 % topical ointment 1 applic topical Q OTHER DAY 03/31/22 08/19/23 03/30/22 History Levbid 09/24/22 08/19/23 Unknown History fluticasone propionate 50 2 spray intranasal DAILY 12/04/22 08/19/23 Unknown History mcg/actuation nasal spray,suspension (Flonase Allergy Relief) loratadine 10 mg tablet 10 mg PO DAILY 12/04/22 08/19/23 Unknown History melatonin 10 mg tablet 10 mg PO BEDTIME PRN 12/04/22 08/19/23 Unknown History ascorbic acid (vitamin C) 500 mg mg PO 08/17/23 08/19/23 Unknown History capsule Exam Narrative Narrative: EKG 08/2023 Vent. Rate : 075 BPM Atrial Rate : 075 BPM P-R Int : 154 ms QRS Dur : 084 ms QT Int : 392 ms P-R-T Axes : 057 043 042 degrees QTc Int : 437 ms Normal sinus rhythm Normal ECG When compared with ECG of 31-MAR-2022 07:30, No significant change was found US carotid duplex BI 08/2023 IMPRESSION: 1. RIGHT: Minimal, non-hemodynamically significant stenosis of the proximal right internal carotid artery corresponding to a 0-49% stenosis by velocity criteria. 2. LEFT: Minimal, non-hemodynamically significant stenosis of the proximal left internal carotid artery corresponding to a 0-49% stenosis by velocity criteria. 3. Elevated velocities proximal external carotid arteries bilaterally consistent with hemodynamically significant stenoses, which could explain carotid bruits. Cath 2022 ?Conclusions ?Diagnostic Summary ?Coronary angiogram showed: ?1. Right dominant circulation. ?2. Left main is a large size vessel and is angiographically normal. ?3. LAD is a large size vessel and is angiographically normal. ?4. LCx ia moderate size vessel and is angiographically normal. ?5. RCA is a large size vessel. Large RPDA and RPAV branches. There is 20-30% ?mid RCA stenosis. ?6. LVEDP is 5 mmHg. ?Conclusion: No angiographic evidence of obstructive CAD. Normal left sided ?filling pressures. ?Diagnostic Recommendations ?Consider evaluation for non-cardiac causes of symptoms. Assessment and Plan Assessment Anesthesia Assessment: Chart Reviewed Final Anesthetic Review Family History of Problems with Anesthesia: No History of Problems with Anesthesia: No Documented by User: Clair Odom DO 01/07/24 10:27 [facility] [place] Past Medical History Medical History Venous insufficiency Right carotid bruit Diverticulitis Bipolar 1 disorder GERD (gastroesophageal reflux disease) History of cervical cancer Irritable bowel syndrome with constipation Weak urinary stream Surgical menopause Osteopenia Essential hypertension Dyslipidemia Anxiety Family History Family History Father Throat cancer Mother No problems noted. Brother No problems noted. Sister No problems noted. Sister No problems noted. Sister No problems noted. Sister Hyperlipidemia HTN (hypertension) Depression Myocardial infarction Daughter No problems noted. Daughter No problems noted. Daughter No problems noted. Daughter No problems noted. Paternal Aunt Rheumatoid arthritis Other Mental health disorder Substance use disorder Family history of problems with anesthesia: No Surgical History Surgical History History of cardiac cath Hx of esophagogastroduodenoscopy Hx of colonoscopy History of partial hysterectomy History of Problems with Anesthesia: No Social History Social History Housing: Apartment Alcohol intake: current Alcohol intake frequency: does not drink Alcohol type: wine Patient Tobacco Use Status: Former Tobacco user e-Cigarette/Vaping Use: Never Used Use of substances other than those prescribed or required for medical reasons: No Advance Directives: No Advance Directives Information Provided: Yes Advance Directives Date on File: 12/21/19 Recently lost weight without trying: Yes How much weight loss: 2-13 pounds Eating poorly because of decreased appetite: Yes Nutrition screen score: 4 Nutrition Risks: Anorexia service: No Current occupational status: unemployed Cognitive needs: No Hearing needs: No Vision needs: No Meds Allergies Allergy/AdvReac Type Severity Reaction Status Date / Time prednisone AdvReac Intermediate Anxiety Verified 12/14/23 20:42 Home Medications ?Medication ?Instructions ?Recorded ?Confirmed ?Last Taken ?Type escitalopram oxalate 10 mg tablet 10 mg PO DAILY@1300 PRN depression 02/02/20 08/19/23 Unknown History lorazepam 0.5 mg tablet 0.5 mg PO DAILY PRN Anxiety 02/02/20 01/07/24 01/07/24 09:00 History zolpidem 5 mg tablet 2.5 mg PO BEDTIME PRN Insomnia 03/04/21 08/19/23 Unknown History ketoconazole 2 % shampoo 1 appl topical MOFR@0900 05/19/21 08/19/23 03/29/22 History triamcinolone acetonide 0.1 % 1 appl topical BID PRN Dry Skin 05/19/21 08/19/23 Unknown History topical ointment bupropion HCl 75 mg tablet 1 tab PO DAILY 03/31/22 08/19/23 03/31/22 09:00 History gabapentin 600 mg tablet 1 tab PO DAILY 03/31/22 08/19/23 03/31/22 09:00 History geriatric sqrnfpni-qvkg-zdxs 1 tab PO DAILY 03/31/22 08/19/23 03/31/22 09:00 History (Centravites 50 Plus tablet) tacrolimus 0.1 % topical ointment 1 applic topical Q OTHER DAY 03/31/22 08/19/23 03/30/22 History Levbid 09/24/22 08/19/23 Unknown History fluticasone propionate 50 2 spray intranasal DAILY 12/04/22 08/19/23 Unknown History mcg/actuation nasal spray,suspension (Flonase Allergy Relief) loratadine 10 mg tablet 10 mg PO DAILY 12/04/22 08/19/23 Unknown History melatonin 10 mg tablet 10 mg PO BEDTIME PRN 12/04/22 08/19/23 Unknown History ascorbic acid (vitamin C) 500 mg mg PO 08/17/23 08/19/23 Unknown History capsule Exam Exam Date and Time: 01/07/24 1025 Height,Weight and Vital Signs: Height 5 ft 5 in Weight 65.998 kg Vital Signs Temperature 97.5 F 01/07/24 10:06 Pulse Rate 80 01/07/24 10:06 Respiratory Rate 18 01/07/24 10:06 Blood Pressure 164/80 H 01/07/24 10:06 Pulse Oximetry 100 01/07/24 10:06 Oxygen Delivery Method Room Air 01/07/24 10:06 Temperature 97.5 F 01/07/24 10:06 Pulse Rate 80 01/07/24 10:06 Respiratory Rate 18 01/07/24 10:06 Blood Pressure 164/80 H 01/07/24 10:06 Pulse Oximetry 100 01/07/24 10:06 Oxygen Delivery Method Room Air 01/07/24 10:06 Airway Mallampati Class: II TM Dist: >3cm Neck ROM: Full Loose/Missing/Broken Teeth: No (patient denies any loose or broken teeth) Heart: S1S2 Lungs: CTAB Assessment and Plan Assessment Anesthesia Assessment: Anesthesia Plan Discussed and Chart Reviewed Final Anesthetic Review Family History of Problems with Anesthesia: No History of Problems with Anesthesia: No NPO: Yes ASA Class: III Final Preanesthetic Review: No Changes in Pt Med Stat, Meds/Allgs Chart Reviewed, Consent Obtained/Reviewed and Anes Risks/Benef Reviewed Patient Risk: Intermediate Procedure Risk: Low Anesthetic Plan Anesthetic Plan: MAC: and Agree w/ Assess. and Plan Disposition: Standard PACU
[2024-01-07 10:58] VITALS: BP 95/34; PULSE 76; RESP 16; TEMP 36.3; O2SAT 100
[2024-01-07 11:13] VITALS: BP 117/48; PULSE 73; RESP 16; TEMP 36.2; O2SAT 100
--- NOTE | 2024-01-07 12:52 | OP_ITS ---
DATE OF SERVICE: 01/07/2024 SURGEON: Alban Lopez MD INDICATIONS: Colon cancer screening and family history of colon cancer PREOPERATIVE DIAGNOSIS: POSTOPERATIVE DIAGNOSIS: PROCEDURE PERFORMED: Colonoscopy to the terminal ileum. ESTIMATED BLOOD LOSS: COMPLICATIONS: ANESTHESIA: Monitored anesthesia care. ASSISTANTS: SPECIMENS: DESCRIPTION OF PROCEDURE: A history and physical performed. The risks and benefits of the procedure were explained to the patient, and informed consent was obtained. The patient was placed in the left lateral decubitus position. A digital rectal exam was performed and was found to be normal. The Olympus pediatric video colonoscope was introduced into the rectum and advanced to the cecum. The cecum was identified by transillumination, palpation, and identification of ileocecal valve. Examination was performed. The scope was removed. She tolerated the procedure well and was returned to the recovery area in stable condition. FINDINGS: The terminal ileum was examined and appeared normal. The visualized colonic mucosa was within normal limits without evidence of masses or ulcers. No polyps were identified. Retroflexed examination was normal. There was moderate sigmoid diverticulosis with scattered diverticula throughout the remainder of the colon. IMPRESSION: Normal colonoscopy. RECOMMENDATION: 1. Follow up as needed. 2. Repeat colonoscopy is recommended in 5 years because of family history of colon cancer. MD FRANSISCO Hernandez/ROYCE / [id number]
== END 2024-01-07 11:39 | disposition home or self-care (01) ==
PROVIDERS: PCP Internal Medicine; Visit Provider Internal Medicine Gastroenterology
PROC: 0DJD8ZZ Inspection of Lower Intestinal Tract, Via Natural or Artificial Opening Endoscopic (ICD-10-PCS; CPT 45378; principal; 2024-01-07 11:00)
DX: Z12.11 Encounter for screening for malignant neoplasm of colon (principal); Z80.0 Family history of malignant neoplasm of digestive organs; K57.30 Diverticulosis of large intestine without perforation or abscess without bleeding; K21.9 Gastro-esophageal reflux disease without esophagitis; K31.A0 Gastric intestinal metaplasia, unspecified; I10 Essential (primary) hypertension; G62.9 Polyneuropathy, unspecified; F31.9 Bipolar disorder, unspecified; Z87.19 Personal history of other diseases of the digestive system; Z79.899 Other long term (current) drug therapy; Z88.8 Allergy status to other drugs, medicaments and biological substances; Z87.891 Personal history of nicotine dependence; Z56.0 Unemployment, unspecified; Z98.890 Other specified postprocedural states
CPT/HCPCS: G0105; J2003; J2371; J2704

== ENCOUNTER 2024-02-15 10:35 | Outpatient (AMB) | payer OTHER, SELFPAY ==
--- NOTE | 2024-02-15 10:41 | A.OFFVIS_ITS ---
Vital Signs 3 02/15/24 10:44 Height 5 ft 5 in Weight 149 lb 14.629 oz BMI 24.9 BP 112/64 Blood Pressure Location Rt brachial Position Sitting Respiration 16 Pulse 76 Pulse Source Pulse Oximeter Pulse Oximetry (%) 97 Oxygen Delivery Method Room Air Intake Visit Reasons: SLE/CM Intake Note: Patient presents for SLE. Allergies prednisone Adverse Reaction (Intermediate, Verified 02/15/24 10:44) Anxiety Medication List - Last Reconciled 02/15/24 by Anh Gerardo MD ascorbic acid (vitamin C) mg PO bupropion HCl 1 tab PO DAILY diclofenac sodium 1% 2 grams topical BID PRN escitalopram oxalate 10 mg PO DAILY@1300 PRN fluticasone propionate 50 mcg/actuation (Flonase Allergy Relief) 2 sprays intranasal DAILY gabapentin 1 tab PO DAILY geriatric [id number]-[id number] (Centravites 50 Plus tablet) 1 tab PO DAILY hydroxychloroquine 300 mg (1.5 x 200 mg) PO DAILY ketoconazole 2% 1 appl topical MOFR@0900 [Levbid ] loratadine 10 mg PO DAILY lorazepam 0.5 mg PO DAILY PRN melatonin 10 mg PO BEDTIME PRN omeprazole 20 mg PO DAILY PRN tacrolimus 0.1% 1 applic topical Q OTHER DAY terazosin 1 mg PO BEDTIME 30 days [thumb spica wear nightly & as much as possible throughout the day] triamcinolone acetonide 0.1% 1 appl topical BID PRN zolpidem 2.5 mg PO BEDTIME PRN HPI Comments Details: 68-year-old female with lupus returns for follow-up. She remains on hydroxychloroquine 300 mg daily. She states that she continues to have intermittent joint pain of her hands. Gets subtle rashes on her forearm and neck. Not particularly itchy. She has bilateral elbow pain. Initial history: This is a 67-year-old female who presents for evaluation of generalized osteoarthritis. Patient states that she has been having low back pain, she also has burning along the outside of her left hip going all the way to her left foot. With regards to her back pain. She was evaluated by Dr. Child 3 months ago and an epidural steroid injection was suggested. Patient had 2 epidural steroid injections in the past and they were helpful for the back pain as well as the burning on the outside of her hip. Patient was hesitant about the procedure. Dr. Posey asked patient to increase her gabapentin to 900 mg 3 times a day, patient was afraid of high dose. She also states that she gets pain and stiff of her left middle finger. She also gets some pain and stiffness of her thumbs especially with use. She applies Voltaren gel twice daily when her fingers hurt. [facility] Medical History Venous insufficiency Right carotid bruit Diverticulitis Bipolar 1 disorder GERD (gastroesophageal reflux disease) History of cervical cancer Irritable bowel syndrome with constipation Weak urinary stream Surgical menopause Osteopenia Essential hypertension Dyslipidemia Anxiety Surgical History History of cardiac cath Hx of esophagogastroduodenoscopy Hx of colonoscopy History of partial hysterectomy Family History Father Throat cancer Mother No problems noted. Brother No problems noted. Sister No problems noted. Sister No problems noted. Sister No problems noted. Sister Hyperlipidemia HTN (hypertension) Depression Myocardial infarction Daughter No problems noted. Daughter No problems noted. Daughter No problems noted. Daughter No problems noted. Paternal Aunt Rheumatoid arthritis Other Mental health disorder Substance use disorder Social History Housing: Apartment Alcohol intake: current Alcohol intake frequency: does not drink Alcohol type: wine Patient Tobacco Use Status: Former Tobacco user e-Cigarette/Vaping Use: Never Used Advance Directives Date on File: 12/21/19 service: No Current occupational status: unemployed Cognitive needs: No Hearing needs: No Vision needs: No Review of Systems Const Denies fatigue, Denies fever(s), Reports poor appetite and Reports weight loss Musc Reports arthralgias and Reports joint swelling Skin/Breast Reports alopecia and Reports rash Endo Denies fatigue Physical Exam Vital Signs: Last Vital Signs Pulse 76 02/15/24 10:44 Resp 16 02/15/24 10:44 BP 112/64 02/15/24 10:44 Pulse Ox 97 02/15/24 10:44 Oxygen Delivery Method Room Air 02/15/24 10:44 BMI result Body Mass Index 24.9 Const General: cooperative, healthy appearing and comfortable Nutritional Appearance: average body habitus Orientation/consciousness: patient oriented x3 Limitations: no limitations HEENT Head: Yes normocephalic and Yes atraumatic Mouth: moist mucous membranes Resp Effort & Inspection: normal respiratory effort and able to speak in complete sentences Auscultation: clear to auscultation bilaterally Cardio Rate: regular rate Rhythm: regular rhythm Skin Other: Neuro General: patient oriented x3 Extrem Other: Osteoarthritic changes of both hands with Nick's and Heberden's nodes No active synovitis today Assessment & Plan Assessment & Plan (1) SLE (systemic lupus erythematosus): Comment: dx 08/2023 (inflammatory arthritis, ? Skin rashes, ++ SCOTT ++ dsDNA + RF) HCQ 08/2023 Code(s): M32.9 - Systemic lupus erythematosus, unspecified Category: Medical Qualifiers: Systemic lupus erythematosus type: unspecified Systemic lupus erythematosus organ involvement: other Qualified Code(s): M32.19 - Other organ or system involvement in systemic lupus erythematosus Plan: This is a 68-year-old female with lupus who presents for follow-up. On hydroxychloroquine 300 mg daily. Doing well overall. There is no active synovitis on exam. Her MSK complaints are right knee related to degenerative arthritis. She continues to have minimal intermittent rashes that do not require any escalation of treatment at this time Labs before next visit in 4 months (2) Long-term use of hydroxychloroquine: Comment: Eye exam 2023 okay Code(s): Z79.899 - Other termite inspector (current) drug therapy Category: Medical Plan: Patient aware of risk of retinopathy with hydroxychloroquine. Follow-up regularly with clinical dietician (3) Kareen elbow: Code(s): M77.00 - Medial epicondylitis, unspecified elbow Category: Medical Qualifiers: Laterality: unspecified laterality Qualified Code(s): M77.00 - Medial epicondylitis, unspecified elbow Plan: Bilateral. Referred to OT Plan I spent 29 minutes reviewing patient's chart, evaluating patient, ordering diagnostic workup, counseling patient and documenting in the chart Orders: Orders 2 OT Evaluation and Treatment Today M77.00 - Medial epicondylitis, unspecified elbow Medications: Refilled 2 diclofenac sodium 1% apply to joints 2 grams topical BID PRN 100 grams 2RF pain Coding Level of Care Code Est Pt Level 4 (04915) Complex EM visit Add On G2211 Diagnoses Systemic lupus erythematosus with other organ involvement, unspecified SLE type M32.19 Systemic lupus erythematosus type: unspecified Systemic lupus erythematosus organ involvement: other Long-term use of hydroxychloroquine Z79.899 Golfers elbow, unspecified laterality M77.00 Laterality: unspecified laterality
[2024-02-15 10:44] VITALS: BP 112/64; PULSE 76; RESP 16; O2SAT 97; BMI 24.9
== END 2024-02-15 11:25 | disposition home or self-care (01) ==
PROVIDERS: PCP Internal Medicine; Visit Provider Student in an Organized Health Care Education/Training Program
DX: M32.19 Other organ or system involvement in systemic lupus erythematosus (principal); Z79.899 Other long term (current) drug therapy; M77.00 Medial epicondylitis, unspecified elbow
CPT/HCPCS: 99214; G2211

== ENCOUNTER → 2024-02-15 10:35 | Outpatient (BNVA) | payer OTHER, SELFPAY | PROVIDERS: PCP Internal Medicine; Visit Provider Student in an Organized Health Care Education/Training Program | DX: M32.19 Other organ or system involvement in systemic lupus erythematosus (principal); M77.00 Medial epicondylitis, unspecified elbow; Z79.899 Other long term (current) drug therapy | CPT/HCPCS: 99212 ==

== ENCOUNTER 2024-03-13 10:41 | Outpatient (AMB) | payer OTHER, SELFPAY ==
--- NOTE | 2024-03-13 10:59 | A.OFFVIS_ITS ---
Intake Visit Reasons: 3m/PVR Intake Note: Patient presents for follow up recurrent uti and incomplete bladder emptying Urology Medication: terazosin Blood Thinner: none PVR: 62ml's Farm Service Adviser Required: No Accompanied by: Self / Same As Patient Allergies prednisone Adverse Reaction (Intermediate, Verified 03/13/24 11:23) Anxiety Medication List - Last Reconciled 03/13/24 by SARAH Warren-FRANSISCO ascorbic acid (vitamin C) mg PO bupropion HCl 1 tab PO DAILY diclofenac sodium 1% 2 grams topical BID PRN escitalopram oxalate 10 mg PO DAILY@1300 PRN fluticasone propionate 50 mcg/actuation (Flonase Allergy Relief) 2 sprays intranasal DAILY gabapentin 1 tab PO DAILY geriatric [id number]-otei-zrro (Centravites 50 Plus tablet) 1 tab PO DAILY hydroxychloroquine 300 mg (1.5 x 200 mg) PO DAILY ketoconazole 2% 1 appl topical MOFR@0900 [Levbid ] loratadine 10 mg PO DAILY lorazepam 0.5 mg PO DAILY PRN melatonin 10 mg PO BEDTIME PRN omeprazole 20 mg PO DAILY PRN tacrolimus 0.1% 1 applic topical Q OTHER DAY terazosin 1 mg PO BEDTIME 30 days [thumb spica wear nightly & as much as possible throughout the day] triamcinolone acetonide 0.1% 1 appl topical BID PRN zolpidem 2.5 mg PO BEDTIME PRN HPI Comments Details: Jessa is a pleasant 68-year-old female patient of Dr. Soni. She has a past medical history of anxiety, arthritis, bipolar, degenerative disc disease, diverticulitis, dyslipidemia, hypertension, GERD, history of cervical cancer, irritable bowel syndrome with constipation, neuropathy, osteopenia. She presents to the office today for follow-up regarding her recurrent urinary tract infections and incomplete bladder emptying. In discussion with the patient today she reports to be doing and feeling well. She reports compliance with terazosin as prescribed during last office visit. We discussed significant decrease in postvoid residual. Previous PVR greater than 250ml today postvoid residual 62 mL. She denies any UTI like symptoms were bothersome urinary issues. In office urinalysis results reviewed with the patient today. Previous workup has included a retroperitoneal ultrasound 11/04 noting bilateral kidneys with no lesions and or hydronephrosis noted. Left kidney with probable 1 by 8 x 9 mm peripelvic cyst in the upper pole. No imaging follow-up recommended per radiology report. The bladder is well distended. Bladder wall upper normal in thickness measuring 4 mm. No stone or masses visualized. Pre void bladder volume is approximately 400 mL. Postvoid bladder volume is approximately 150 mL. When asked she denies urinary urgency, urinary frequency, incontinence, nocturia, hematuria, dysuria, foul smelling urine, changes to urinary stream, flank pain, fever, and or chills. She is happy with her current voiding parameters. She otherwise offers no other issues or concerns at this time. [facility] Medical History Venous insufficiency Right carotid bruit Diverticulitis Bipolar 1 disorder GERD (gastroesophageal reflux disease) History of cervical cancer Irritable bowel syndrome with constipation Weak urinary stream Surgical menopause Osteopenia Essential hypertension Dyslipidemia Anxiety Surgical History History of cardiac cath Hx of esophagogastroduodenoscopy Hx of colonoscopy History of partial hysterectomy Family History Father Throat cancer Mother No problems noted. Brother No problems noted. Sister No problems noted. Sister No problems noted. Sister No problems noted. Sister Hyperlipidemia HTN (hypertension) Depression Myocardial infarction Daughter No problems noted. Daughter No problems noted. Daughter No problems noted. Daughter No problems noted. Paternal Aunt Rheumatoid arthritis Other Mental health disorder Substance use disorder Social History Housing: Apartment Alcohol intake: current Alcohol intake frequency: does not drink Alcohol type: wine Patient Tobacco Use Status: Former Tobacco user e-Cigarette/Vaping Use: Never Used Advance Directives Date on File: 12/21/19 service: No Current occupational status: unemployed Cognitive needs: No Hearing needs: No Vision needs: No Review of Systems Const Reports as per HPI Eyes Reports no additional complaints ENT Reports no additional complaints Card Reports as per [facility] Resp Reports no additional complaints GI Reports as per [facility] Reports as per [facility] Musc Reports as per [facility] Neuro Reports as per [facility] Psych Reports as per [facility] Albino/Lymph Reports no additional complaints Aller/Immun Reports no additional complaints Physical Exam Const General: cooperative, healthy appearing, comfortable, no acute distress, well developed, alert and awake Nutritional Appearance: average body habitus Orientation/consciousness: patient oriented x3 Limitations: no limitations HEENT Head: Yes normal to inspection, Yes normocephalic and Yes atraumatic Ears: hearing grossly normal bilaterally Eyes General: appearance normal, both eyes and all related structures Neck Neck: Yes normal visual inspection and Yes trachea midline Chest Chest palpation & inspection: normal inspection of the chest Resp Effort & Inspection: normal respiratory effort and able to speak in complete sentences Cardio Rate: regular rate GI Inspection: Yes normal to inspection General: Yes no CVA tenderness Back/Spine/Pelvis Back: no CVA tenderness Skin General skin exam: no rashes or lesions noted Neuro General: patient oriented x3 Extrem General: Yes normal to inspection Psych Appearance: grossly normal and well kempt Mental Status: mental status grossly normal Speech and movement: Normal speech and movement present and Clear speech present Affect: normal affect Attitude: cooperative Thought process: Normal thought process present Thought content: Normal thought content present Insight: Fair insight present (Psych) Judgement: Fair judgement present (Psych) Office Procedures Post Void Residual Post Residual Void Post Void Residual (PVR): 62 [id number] Void Residual by ultrasound Results AMB Urinalysis, Automated UA Leukoctes 125 [place]/uL Last Edit by [employer] on 03/13/24 11:20 UA Nitrite Last Edit by [employer] on 03/13/24 11:20 UA Urobilinogen 0.2 mg/dL Last Edit by [employer] on 03/13/24 11:20 UA Protein 0 mg/dL Last Edit by [employer] on 03/13/24 11:20 UA pH 6.5 Last Edit by [employer]ian Villa on 03/13/24 11:20 UA Blood 0 Sivakumar/uL Last Edit by Keoghscarline on 03/13/24 11:20 UA Specific [place] 1.010 Last Edit by [employer] on 03/13/24 11:20 UA Ketone Last Edit by Diane Villa on 03/13/24 11:20 UA Bilirubin 0 mg/dL Last Edit by Diane Villa on 03/13/24 11:20 UA Glucose 0 mg/dL Last Edit by Diane Villa on 03/13/24 11:20 Results Reviewed Results Reviewed: Laboratory Last Values Urine pH (Auto) 6.5 03/13/24 11:18 Specific [place] (Auto) 1.010 03/13/24 11:18 Urine Protein (Auto) 0 mg/dL 03/13/24 11:18 Glucose (UA)(Auto) 0 mg/dL 03/13/24 11:18 Urine Blood (Auto) 0 Sivakumar/uL 03/13/24 11:18 Urine Bilirubin (Auto) 0 mg/dL 03/13/24 11:18 Urine Urobilinogen (Auto) 0.2 mg/dL 03/13/24 11:18 Leukocyte Esterase (Auto) 125 Alexander/uL 03/13/24 11:18 Assessment & Plan Assessment & Plan (1) Renal cyst: Code(s): N28.1 - Cyst of kidney, acquired Category: Medical (2) Recurrent UTI (urinary tract infection): Code(s): N39.0 - Urinary tract infection, site not specified Category: Medical (3) Incomplete bladder emptying: Code(s): R33.9 - Retention of urine, unspecified Category: Medical Plan In office urinalysis results reviewed the patient today; as noted above. PVR 62 mL. We discussed significant decrease in postvoid residual since last office visit. Continue terazosin as discussed and prescribed. Patient currently denies any bothersome urinary issues or concerns. She denies any UTI like symptoms. She reports be happy with current voiding parameters. Discussed double voiding to assist with incomplete bladder emptying. Follow-up in 3 months with PVR; or sooner with any issues, concerns, and or questions. Orders: Orders AMB Post Void Residual by ultrasound Today N39.0 - Urinary tract infection, site not specified AMB Urinalysis Automated Today Z13.9 - Encounter for screening, unspecified Medications: Changed From terazosin 1 mg PO BEDTIME 30 days 30 caps 3RF R39.12 - Poor urinary stream To terazosin 1 mg PO BEDTIME 90 days 90 caps 1RF R39.12 - Poor urinary stream Patient Instructions: The patient had an opportunity to ask questions regarding the treatment plan. All questions were answered. Physical exam, labs, and imaging were discussed and reviewed in detail. As well as risks, benefits, and discussion of treatment choices. No major barriers to understanding were identified. The patient expressed understanding and agreement with the above treatment plan. The patient was made aware they should contact our office by phone for worsening of their current condition, the appearance of new symptoms, or with any questions or concerns. Compliance is encouraged with any medications and follow up testing that is ordered. It is a privilege to be allowed the opportunity to participate in? your urological care.? Again, if you have any questions or concerns If you have any questions or concerns please do not hesitate to contact me. The office is [phone]. This note is constructed using voice recognition software. While every effort has been made to ensure accuracy fluorescent lighting model maker errors may have been included. Yours sincerely, JASON Warren Coding Level of Care Code Est Pt Level 3 (02233) Complex EM visit Add On G2211 Diagnoses Renal cyst N28.1 Recurrent UTI (urinary tract infection) N39.0 Incomplete bladder emptying R33.9 CPT Codes Post Residual Void - PVR CPT Code: 39314-Pete Void Residual by ultrasound ([id number])
== END 2024-03-13 11:23 | disposition home or self-care (01) ==
PROVIDERS: PCP Internal Medicine; Visit Provider Nurse Practitioner Family
DX: N28.1 Cyst of kidney, acquired (principal); N39.0 Urinary tract infection, site not specified; R33.9 Retention of urine, unspecified; Z13.9 Encounter for screening, unspecified
CPT/HCPCS: 99213; G2211

== ENCOUNTER → 2024-03-13 10:41 | Outpatient (BNVA) | payer OTHER, SELFPAY | PROVIDERS: PCP Internal Medicine; Visit Provider Nurse Practitioner Family | DX: N28.1 Cyst of kidney, acquired (principal); N39.0 Urinary tract infection, site not specified; R33.9 Retention of urine, unspecified | CPT/HCPCS: 51798; 81003; 99212 ==

== ENCOUNTER 2024-04-07 14:31 | Emergency (ER) | payer OTHER, SELFPAY ==
--- NOTE | ~2024-04-07 | XR_ITS ---
EXAMINATION: XR CHEST CLINICAL INFORMATION: cough 1 month COMPARISON: 03/31/2022. TECHNIQUE: 2 views of the chest were obtained. FINDINGS: The cardiac, hilar, and mediastinal contours are normal. The aorta is calcified. The lungs are somewhat hyperaerated, however clear bilaterally. There is no pneumothorax or pleural effusion. There is no focal osseous or soft tissue abnormality. XR/XR chest 2V IMPRESSION: No active pulmonary disease. Electronically signed by: Gordon Means MD 04/07/2024 04:36 PM EST
--- NOTE | 2024-04-07 15:42 | ED.GENADULT ---
HPI - General Adult General Chief complaint: General Medical Stated complaint: sob, thick mucus Time Seen by Provider: 04/07/24 19:06 Source: patient, family (), RN notes reviewed and old records reviewed Mode of arrival: ambulatory Limitations: no limitations History of Present Illness ED Provider: Michael HPI narrative: 69-year-old female with past medical history significant for lupus, GERD, hyperlipidemia, hypertension presents for evaluation of shortness of breath and cough. Patient reports that she has had cough but Green mucus on and off for the last month. She reports that she was on Augmentin in February for a sinus infection. This is prescribed by her laminating machine offbearer. She states that last night she started to lose her voice She reports her symptoms are worse at night Denies any fevers, chills. She has no other complaints or concerns this time. No leg swelling, no recent travel Related Data Home Medications ?Medication ?Instructions ?Recorded ?Confirmed escitalopram oxalate 10 mg tablet 10 mg PO DAILY@1300 PRN depression 02/02/20 03/17/24 lorazepam 0.5 mg tablet 0.5 mg PO DAILY PRN Anxiety 02/02/20 03/17/24 zolpidem 5 mg tablet 2.5 mg PO BEDTIME PRN Insomnia 03/04/21 03/17/24 ketoconazole 2 % shampoo 1 appl topical MOFR@0900 05/19/21 03/17/24 triamcinolone acetonide 0.1 % 1 appl topical BID PRN Dry Skin 05/19/21 03/17/24 topical ointment bupropion HCl 75 mg tablet 1 tab PO DAILY 03/31/22 03/17/24 gabapentin 600 mg tablet 1 tab PO DAILY 03/31/22 03/17/24 geriatric [id number]-[id number] 1 tab PO DAILY 03/31/22 03/17/24 (Centravites 50 Plus tablet) tacrolimus 0.1 % topical ointment 1 applic topical Q OTHER DAY 03/31/22 03/17/24 Levbid 09/24/22 03/17/24 fluticasone propionate 50 2 spray intranasal DAILY 12/04/22 03/17/24 mcg/actuation nasal spray,suspension (Flonase Allergy Relief) loratadine 10 mg tablet 10 mg PO DAILY 12/04/22 03/17/24 melatonin 10 mg tablet 10 mg PO BEDTIME PRN 12/04/22 03/17/24 ascorbic acid (vitamin C) 500 mg mg PO 08/17/23 03/17/24 capsule Previous Rx's ?Medication ?Instructions ?Recorded thumb spica #2 ea 01/19/23 omeprazole 20 mg capsule,delayed 20 mg PO DAILY PRN for acid reflux 03/10/23 release #90 caps hydroxychloroquine 200 mg tablet 300 mg (1.5 x 200 mg) PO DAILY 02/14/24 #135 tabs diclofenac sodium 1 % topical gel 2 g topical BID PRN pain #100 grams 02/15/24 terazosin 1 mg capsule 1 mg PO BEDTIME 90 days #90 caps 03/13/24 azithromycin 250 mg tablet See Rx Instructions PO .COMPLEX #6 04/07/24 tabs Allergies Allergy/AdvReac Type Severity Reaction Status Date / Time prednisone AdvReac Intermediate Anxiety Verified 04/07/24 15:44 Review of Systems Constitutional: Constitutional: Denies body ache(s), Denies chills, Denies fever(s) and Denies headache(s) Eyes: Eyes: Denies blurry vision ENT: Denies vertigo and Denies headache(s) Cardiovascular: Cardiovascular: Denies chest pain, Denies chest pain at rest and Reports dyspnea Respiratory: Respiratory: Reports cough, Denies hemoptysis, Reports excessive phlegm production and Reports dyspnea Gastrointestinal: Gastrointestinal: Denies abdominal pain, Denies nausea and Denies vomiting Musculoskeletal: Musculoskeletal: Denies back pain Integumentary/Breasts: Skin/Breast: Denies rash Neurologic: Denies vertigo and Denies headache(s) Psychiatric: Psychiatric: Denies anxiety [facility] Past Medical History Medical History Venous insufficiency Right carotid bruit Diverticulitis Bipolar 1 disorder GERD (gastroesophageal reflux disease) History of cervical cancer Irritable bowel syndrome with constipation Weak urinary stream Surgical menopause Osteopenia Essential hypertension Dyslipidemia Anxiety Surgical History History of cardiac cath Hx of esophagogastroduodenoscopy Hx of colonoscopy History of partial hysterectomy Family History Family History Father Throat cancer Mother No problems noted. Brother No problems noted. Sister No problems noted. Sister No problems noted. Sister No problems noted. Sister Hyperlipidemia HTN (hypertension) Depression Myocardial infarction Daughter No problems noted. Daughter No problems noted. Daughter No problems noted. Daughter No problems noted. Paternal Aunt Rheumatoid arthritis Other Mental health disorder Substance use disorder Social History Social History Housing: Apartment Alcohol intake: current Alcohol intake frequency: does not drink Alcohol type: wine Patient Tobacco Use Status: Former Tobacco user e-Cigarette/Vaping Use: Never Used Advance Directives: Yes Advance Directives on File: Yes Advance Directives Date on File: 01/15/23 Do you have a plan to hurt others: No Plan service: No Current occupational status: unemployed Cognitive needs: No Hearing needs: No Vision needs: No Physical Exam ED Vital Signs: Vital Signs - 24 hr 04/07/24 15:43 04/07/24 20:01 04/07/24 20:05 Temperature 98.2 F 98.1 F 98.1 F Pulse Rate 88 79 79 Respiratory Rate 20 18 18 Blood Pressure 153/69 H 169/67 H 169/67 H Pulse Oximetry 99 97 97 Oxygen Delivery Method Room Air Room Air Room Air BMI result Body Mass Index 25.2 Const General: healthy appearing, comfortable, no acute distress, alert and awake Nutritional Appearance: well nourished Orientation/consciousness: patient oriented x3 HENMT Head: Yes normocephalic and Yes atraumatic Ears: TM's normal bilaterally and EAC's normal Throat: Yes posterior oropharynx normal Eyes Eyelids: Yes eyelids normal Conjunctivae: conjunctivae normal Sclerae: sclerae normal Corneas: corneas normal Pupils: Equal, round and reactive pupils present EOM: EOMs intact bilaterally Neck Neck: Yes full ROM Resp Effort & Inspection: normal respiratory effort, able to speak in complete sentences, no audible wheezes and not labored Auscultation: clear to auscultation bilaterally Cardio Rate: regular rate Rhythm: regular rhythm Skin General skin exam: elasticity normal Neuro General: patient oriented x3 Cranial nerves: Yes Equal, round and reactive pupils present and Yes Bilaterally intact EOM present Cognition (Neuro): normal cognition Extrem Other: Moving all extremities well without any obvious deformities Course Course Course Narrative: This is a rapid medical exam performed by Cuba Jones NP: Additional HPI, ROS, PE not included below will be deferred to primary provider. Patient is a 69-year-old female with history of SLE, alf use of hydroxychloroquine, ALONZO, GERD, IBS, HTN, anemia presenting with complaint of sore throat, hoarse voice, persistent cough for the past month. Symptoms worsened last night, cough is productive of yellow/green sputum. Completed a course of antibiotics without improvement. Plan: viral serology, labs, cxr Medical Decision Making Medical Decision Making [facility] Narrative: 69 old female with past medical history as documented above presents for evaluation of cough and shortness of breath. She is followed by ENT for chronic sinusitis. I reviewed her workup, her labs, chest x-ray and viral swabs all of which are reassuring, she has no evidence of pneumonia or influenza, COVID-19. No evidence of congestive heart failure. She is quite well appearing with stable vital signs. Her symptoms are likely related to chronic sinusitis and possibly viral etiology. I discussed possible true with the prednisone. The patient has been on this in the past for her lupus and reports that it makes her ?deras. She was not wish to be treated with prednisone and instead we will treat her with azithromycin upper respiratory infection. She will follow up with her outpatient providers as planned Differential Diagnosis Differential Diagnoses: The differential diagnosis associated with the presentation includes Upper respiratory infection Sinusitis Pneumonia Influenza COVID-19 Lab Data [facility] Lab Attestation statement: I reviewed the patient's lab results. No leukocytosis or anemia. No significant electrolyte abnormalities. Viral swabs negative 04/07/24 15:51 04/07/24 15:51 Labs: Lab Results 04/07/24 Range/Units 15:51 WBC 6.5 (4.8-10.8) X10*3/uL RBC 4.62 (4.20-5.50) X10*6/uL Hgb 14.0 (12.0-16.0) g/dl Hct 41.9 (37.0-47.0) % MCV 90.7 (80.0-98.0) fL MCH 30.3 (27.0-33.0) pg MCHC 33.4 (31.0-35.0) g/dl RDW 13.3 (11.0-16.0) % Plt Count 158 L (160-400) X10*3/uL MPV 11.3 (9.4-12.3) fL Immature Gran % (Auto) 0.2 (0.0-0.4) % Neut % (Auto) 65.5 (45-73) % Lymph % (Auto) 15.0 L (20-40) % [place] % (Auto) 11.3 H (2-11) % Eos % (Auto) 7.4 H (0-4) % Baso % (Auto) 0.6 (0-2) % Lymph # (Auto) 1.0 L (1.2-4.9) X10*3/uL [place] # (Auto) 0.7 (0.1-1.2) X10*3/uL Eos # (Auto) 0.5 H (0.0-0.4) X10*3/uL Baso # (Auto) 0.0 (0.0-0.2) X10*3/uL Abs Immat Gran (auto) 0.01 (0.00-0.03) X10*3/uL Absolute Neuts (auto) 4.3 (2.0-8.3) x10*3/uL Absolute Nucleated RBC 0.000 (0.0-0.012) X10*3/uL Nucleated RBC % (auto) 0.0 (0.0-0.2) /100WBC Sodium 142 (135-145) mmol/L Potassium 4.4 (3.3-5.1) mmol/L Chloride 107 (96-108) mmol/L Carbon Dioxide 28 (22-29) mmol/L Anion Gap 11 L (12-20) BUN 10 (9-16) mg/dL Creatinine 0.69 (0.5-1.4) mg/dL Estim Creat Clear Calc 71.2 Estimated GFR > 60 Random Glucose 92 (60-115) mg/dL Calcium 9.5 D (8.4-10.2) mg/dL Total Bilirubin 0.4 (0.0-1.0) mg/dL AST 39 H (5-31) U/L ALT 61 H (0-31) U/L Alkaline Phosphatase 72 (39-117) U/L Total Protein 8.2 H (6.5-8.0) g/dL Albumin 4.4 (3.5-5.0) g/dL Influenza Type A (PCR) NEGATIVE (Negative) Influenza Type B (PCR) NEGATIVE (Negative) RSV RNA Qual (PCR) NEGATIVE (Negative) SARS-CoV-2 RNA (RT-PCR) NEGATIVE (Negative) Independent Interpretation I performed an independent interpretation of an: Plain X-Ray (Agree with Radiology interpretation) Radiology Impression Discussion of test interpretation with radiology: I have reviewed the radiologist's reading. Radiologist Impression: FINDINGS: The cardiac, hilar, and mediastinal contours are normal. The aorta is calcified. The lungs are somewhat hyperaerated, however clear bilaterally. There is no pneumothorax or pleural effusion. There is no focal osseous or soft tissue abnormality. XR/XR chest 2V IMPRESSION: No active pulmonary disease. Electronically signed by: Gordon Means MD 04/07/2024 04:36 PM [facility] Discharge Plan Discharge Clinical Impression: Acute upper respiratory infection Patient Disposition: Home, Self-Care Instructions: Upper Respiratory Infection (ED) Additional Instructions: Your workup in the ER today was reassuring. This includes your blood work, viral swabs and chest x-ray. Take azithromycin as directed. Follow-up with your primary doctor in your ENT specialist Return for new or worsening symptoms Prescriptions: New azithromycin 250 mg tablet See Rx Instructions .ROUTE .COMPLEX Qty: 6 0RF Rx Instructions: For 250 mg dose pack: take 500 mg today (day 1), then 250 mg for 4 days (days 2-5) No Action (DME) thumb spica See Rx Instructions .Route .MEDSUPPLY Qty: 2 0RF Rx Instructions: wear nightly & as much as possible throughout the day omeprazole 20 mg capsule,delayed release(DR/EC) 20 mg PO DAILY PRN (Reason: for acid reflux) Qty: 90 3RF hydroxychloroquine 200 mg tablet 300 mg PO DAILY Qty: 135 0RF gabapentin 600 mg tablet 1 tab PO DAILY tacrolimus 0.1 % ointment 1 applic topical Q OTHER DAY Rx Instructions: apply to affected area bupropion HCl 75 mg tablet 1 tab PO DAILY Centravites 50 Plus Tablet 1 tab PO DAILY Levbid escitalopram oxalate 10 mg tablet 10 mg PO DAILY@1300 PRN (Reason: depression) lorazepam 0.5 mg tablet 0.5 mg PO DAILY PRN (Reason: Anxiety) zolpidem 5 mg tablet 2.5 mg PO BEDTIME PRN (Reason: Insomnia) triamcinolone acetonide 0.1 % ointment 1 appl topical BID PRN (Reason: Dry Skin) Rx Instructions: apply to chest, arms, and legs ketoconazole 2 % shampoo 1 appl topical MOFR@0900 ascorbic acid (vitamin C) 500 mg capsule PO melatonin 10 mg tablet 10 mg PO BEDTIME PRN fluticasone propionate [Flonase Allergy Relief] 50 mcg/actuation spray,suspension 2 spray intranasal DAILY loratadine 10 mg tablet 10 mg PO DAILY diclofenac sodium 1 % gel 2 g topical BID PRN (Reason: pain) Qty: 100 2RF Rx Instructions: apply to joints terazosin 1 mg capsule 1 mg PO BEDTIME 90 Days Qty: 90 1RF Interventions: ED Discharge Assessment Last Done: 04/07/24 20:05 Discharge Date/Time: 04/07/24 20:05 Print Language: Azeri
[2024-04-07 15:43] VITALS: BP 153/69; PULSE 88; RESP 20; TEMP 36.8; O2SAT 99; BMI 25.2
[2024-04-07 15:55] LABS: MANUAL DIFF FLAG NO
[2024-04-07 15:57] LABS: Basophils Percent Auto 0.6 % (0-2); Eosinophils Absolute Auto 0.5 X10*3/uL (0.0-0.4); Eosinophils Percent Auto 7.4 % (0-4); Hematocrit 41.9 % (37.0-47.0); Imm Gran Abs Auto 0.01 X10*3/uL (0.00-0.03); Imm Gran Pct Auto 0.2 % (0.0-0.4); Mean Corpuscular HGB Conc 33.4 g/dl (31.0-35.0); Mean Corpuscular Hemoglobin 30.3 pg (27.0-33.0); Mean Corpuscular Volume 90.7 fL (80.0-98.0); Mean Platelet Volume 11.3 fL (9.4-12.3); Monocytes Absolute Auto 0.7 X10*3/uL (0.1-1.2); Monocytes Percent Auto 11.3 % (2-11); Neutrophils Absolute Auto 4.3 x10*3/uL (2.0-8.3); Neutrophils Percent Auto 65.5 % (45-73); Platelet Count 158 X10*3/uL (160-400); Red Blood Count 4.62 X10*6/uL (4.20-5.50); Red Cell Distribution Width 13.3 % (11.0-16.0); White Blood Count 6.5 X10*3/uL (4.8-10.8)
[2024-04-07 16:12] LABS: Alanine Aminotransferase 61 U/L (0-31); Albumin Level 4.4 g/dL (3.5-5.0); Alkaline Phosphatase 72 U/L (39-117); Anion Gap 11 (12-20); Aspartate Amino Transferase 39 U/L (5-31); Bilirubin Total 0.4 mg/dL (0.0-1.0); Blood Urea Nitrogen 10 mg/dL (9-16); Calcium 9.5 mg/dL (8.4-10.2); Carbon Dioxide 28 mmol/L (22-29); Chloride 107 mmol/L (96-108); Creatinine Clr Calc Pharmacy 71.2; Estimated Glomerular Filt Rate > 60; Glucose Random 92 mg/dL (60-115); Potassium 4.4 mmol/L (3.3-5.1); Sodium 142 mmol/L (135-145); Total Protein 8.2 g/dL (6.5-8.0)
--- OUTSIDE RECORDS SUMMARY | 2024-04-07 16:38 | XMS_ITS | Encounter Summary ---
Author Organization [facility] Address [address] [place] [address] Care Team Providers Care Vp Legal Affairs Name Role Phone Unavailable Primary Care Provider Unavailabl e Encounter Details Date Type Department Care Team (Latest Contact Info) Description 08/26/2020 Abstract [facility] CONVERSIONS Dental, Provider, DDS Social History Tobacco Use Types Packs/Day Years Used Date Smoking Tobacco: Never Assessed Comments Unknown Sex and Gender Information Value Date Recorded Sex Assigned at Female 01/12/2022 10:17 AM EDT Legal Sex Female 10:17 AM EDT Gender Identity Male 01/12/2022 10:17 AM EDT Sexual Orientation Straight 01/12/2022 10 :17 AM EDT documented as of this encounter Plan of Treatment Not on file documented as of this encounter Visit Diagnoses Not on filedocumented in this encounter
--- OUTSIDE RECORDS SUMMARY | 2024-04-07 16:38 | XMS_ITS | Encounter Summary ---
Author Organization [facility] Address [address] [place] [address] Care Team Providers Care Rn Dialysis Name Role Phone Unavailable Primary Care Provider Unavailabl e Encounter Details Date Type Department Care Team (Latest Contact Info) Description 03/30/2019 Abstract [facility] CONVERSIONS Dental, Provider, DDS Social History Tobacco [...]
--- OUTSIDE RECORDS SUMMARY | 2024-04-07 16:38 | XMS_ITS | Patient Health Record ---
Author Organization [facility] Address [address] [place] [address] Care Team Providers Care Compress Trucker Name Role Phone Osiris Soni MD Primary Care Provider Alban Gerard Jr Unavailable ALLERGIES No Known Allergies REASON FOR REFERRAL No Information MEDICATIONS Medication SIG (Take, Route, Frequency, Duration) Notes Start Date End Date Status Diclofenac Sod&Camphor-Menth ol 1.5 & 4-10 % as directed Externally Activ e buPROPion HCl 75 MG 1 tablet Orally Twic e a day Active MiraLax (colon prep) 17 GM/SCOOP mixed with Gatorade or Crystal Light Orally begin at 5:00 p.m. the day before the procedure for 1 day 11/29/2023 Active tiZANidine HCl 2 MG 1 tablet as needed Orally Three times a day Active Vitamin D 1000 UNIT 1 tablet Orally Once a day for 30 day(s) Active Hydroxychloroquine Sulfate 2 00 MG TAKE 1 AND 1/2 TABLET ORALLY DAILY Oral for 90 Active Ipratropium [place] 0.03 % USE 2 SPRAYS EACH NOSTRILS 1-3 TIMES DAILY 15 MINUTES BEFORE MEALS Nasal for 90 Active Loratadine 10 MG TAKE 1 TABLET BY CIERA TH EVERY DAY Oral for 90 Active methylPREDNISolone 4 MG PLEASE SEE ATTAC HED FOR DETAILED DIRECTIONS Oral for 28 Active Centrum Silver 50+Women - as directed Orally Active LORazepam 0.5 MG 1 tablet at bedtime as needed Orally Once a day Active Melatonin 5 MG 1 tablet in the evening Orally Once a day for 30 day(s) Active Escitalopram Oxalate 10 MG 1 tablet Oral ly Once a day for 30 day(s) Active Amitriptyline HCl 10 MG 1 tablet at bedt afua Orally Once a day for 30 day(s) Active Zolpidem Tartrate 10 MG 1 tablet at bedt afua as needed Orally Once a day Active hydrOXYzine HCl 10 MG 1 tablet as needed Orally BID Active Tamsulosin HCl 0.4 MG 1 capsule Orally O nce a day for 30 day(s) Active Gabapentin 300 MG 1 capsule Orally thr ee x a day Active Fluticasone Propionate (Inha l) 50 MCG/BLIST 1 puff Inhalation Twice a day Active Fluticasone Furoate 27.5 MCG/SPRAY 1 puff in each nostril Nasally Once a day Active IMMUNIZATIONS Vaccine Route Administration Date Status Comme nts Influenza Unknown 12/01/2017 Administered Influenza Unknown 11/14/2019 Administered Influenza Unknown 12/13/2020 Administered Influenza Unknown 12/30/2021 Administered Influenza Unknown 01/05/2023 Administered SOCIAL HISTORY Tobacco Use: Social History Observation Description Date Details (start date - stop date) Former Smoker NA - NA Sex Assigned At : Social History Observation Description Sex Assigned At Unknown Tobacco Use/Smoking Question Answer Notes Patient is a former smoker How long has it been since you last smoked? > 10 years PROBLEMS Problem Type ICD Code Onset Dates Problem Status W/U Status Risk SNOMED Code Notes Problem Colon cancer screening (Z12.11) Active confirmed 890348591 Problem Gastro-esophage al reflux disease without esophagitis (K21.9) Active confirmed 579476875 Problem Generalized abdominal pain (R10.84) Active confirmed 183918691 Problem Other dysphagia (R13.19) Active confirmed 39991225 Problem Dysphagia (R13.10) Active confirmed Dysphagia (61934016) Problem Constipation, unspecified constipation type (K59.00) Active confirmed 60773919 Problem Gastritis (K29.70) Active confirmed Gastritis (3452997) Problem Diarrhea, unspecified type (R19.7) Active confirmed 33396430 Problem Esophageal reflux disease (K21.9) Active confirmed Gastroesophagea l reflux disease (825713670) Problem Gastric intestinal metaplasia (K31.A0) Active confirmed 50617513 VITAL SIGNS Temperature 98.0 degrees Fahrenheit 11/29/2023 Blood pressure diastolic 00 mm Hg 11/29/2023 Height 65.5 in 11/29/2023 Blood pressure systolic 000 mm Hg 11/29/2023 Weight 145 lbs 11/29/2023 BMI 23.76 kg/m2 11/29/2023 Encounters Encounter Location Date Provider Diagnosis [facility] [place] Outpatient [address], [place] [id number] 01/07/2024 Alban Lopez Jr Colon cancer screening Z12.11 and Family history of colon cancer Z80.0 [facility] [address] [place] [address] 11/29/2023 Alban Lopez Jr Gastro-esophageal reflux disease without esophagitis K21.9 ; Gastric intestinal metaplasia K31.A0 and Colon cancer screening Z12.11 ASSESSMENTS Encounter Date Diagnosis Assessment Notes Treatment Notes Treatment Clinical Notes 01/07/2024 Colon cancer screening (ICD-10 - Z12.11) 01/07/2024 Family history of colon cancer (ICD-10 - Z80.0) 11/29/2023 Gastro-esophageal reflux disease without esophagitis (ICD-10 - K21.9) 11/29/2023 Gastric intestinal metaplasia (ICD-10 - K31.A0) 11/29/2023 Colon cancer screening (ICD-10 - Z12.11) Colonoscopy material was printed PLAN OF TREATMENT Pending Test Test Name Order Date LIVER PROFILE 11/24/2022 LIPASE 11/24/2022 CBC w/o DIFF 11/24/2022 STOOL WBC 11/24/2022 OVA & PARASITES (O&P) 11/24/2022 Future Test Test Name Order Date UPPER GI ENDOSCOPY 07/27/2014 COLONOSCOPY 07/27/2014 UPPER GI ENDOSCOPY 11/23/2018 COLONOSCOPY 11/23/2018 UPPER GI ENDOSCOPY 08/31/2022 UPPER GI ENDOSCOPY 10/08/2022 COLONOSCOPY 11/29/2023 Insurance Providers Payer Name Payer Address Payer Phone Subscriber Number Group Number Insured Name Patient Relationship to Insured Coverage Start Date Coverage End Date [facility] [address] [address] [place] [address] [id number] PAULETTE SERRANO Self - patient is the insured MEDICAID OF [place] [address] [place] [address] [id number] PAULETTE SERRANO Self - patient is the insured MEDICAL (GENERAL) HISTORY Medical History History ICD Code Hypertension bipolar disorder GERD, upper endoscopy 3, gastric intestinal metaplasia at one site, 2-3 year followup diverticulitis arthritis neuropathy Colonoscopy 01/31 benign cecal polyp, te n-year followup lupus Surgical History Surgery Date(Month/Year) hysterectomy 1985
--- OUTSIDE RECORDS SUMMARY | 2024-04-07 16:38 | XMS_ITS ---
Author Organization [facility] Address [address] [place] [address] Care Team Providers Care Pest Management Supervisor Name Role Phone Nae LILLY, Osiris Primary Care Provider Paula Lopez Jr, Alban Larsen REASON FOR VISIT labs Encounters Encounter Location Date Provider Diagnosis [facility] [address] [place] [address] 11/27/2022 Alban Lopez Jr PLAN OF TREATMENT No Information
--- OUTSIDE RECORDS SUMMARY | 2024-04-07 16:38 | XMS_ITS | Data Portability ---
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 This has improved with use of Astelin, though sometimes she has dryness, discomfort, and a little bit of bleeding from the left nare. More recently, she had a sinus infection last month that responded well to a 10 day course of oral antibiotics, but in the past several days purulent drainage has recurred. Physical exam reveals a dilated vessel on the left anterior septum with a small amount of bright red blood, and a small amount of slightly purulent drainage in the posterior pharynx. We reviewed that the sinus infection is more likely viral in origin at this point. Continue saline irrigations. She will call if worse or not better in 10 days at which point we reviewed antibiotics would be indicated. We will schedule a follow up in 3-4 weeks which she may cancel if feeling better. Could consider cautery of left septum if persistent bleeding or nasal endoscopy if still symptomatic. Not available 2024 10:59:19 Plan of Treatment Reminders Order Date Submit Date Provider Last Modified By Organization Details Last Modified Time Details Appointments Establish ed 15 2024 09:30A M QUETA MATTHEWS PA-C Not available Not available Not available Lab None recorded. Referral None recorded. Procedures None recorded. Surgeries None recorded. Imaging None recorded. Medication Orders azelastin e 137 mcg (0.1 %) nasal spray 2023 024 [place], [address] [facility], [place], [place], [phone], 09/21/2023 10:31:40 Patient TargetsNo targets recorded. Patient Instructions Encounter Date Encounter Id Patient Instructions Last Modified By Organization Details Last Modified Time 09/21/2023 [id number] Vasomotor rhinitis only slightly improved with Atrovent. Options reviewed. Recommend Astelin as above. Discussed sometimes rhinorrhea is actually caused by dry nasal mucosa. Patient with good oral hydration. Recommend saline spray BID and prn, and would consider saline gel at bedtime. Recommend 6 month follow up, sooner with worsening or lack of improvement. Patient to reach out via the portal with any concerns or medication issues. Not available 09/21/2023 11:02:03 Reason for Referral None Reported. Results Created Date Observation Date Name Description Value Unit Range Abnormal Flag Note LastModifiedBy Organization Detail LastModifiedTime 11/03/1907/27/2018 imagi ng/di agnos tic resul t No observ ation record ed. [email or web address] Not Available 03:11:40 11/03/19 24 11/05/2020 imagi ng/di agnos tic resul t No observ ation record ed. [email or web address] Not Available 03:12:02 11/03/19 24 01/01/2021 imagi ng/di agnos tic resul t No observ ation record ed. [email or web address] Not Available 03:12:17 11/03/19 24 01/01/2021 imagi ng/di agnos tic resul t No observ ation record ed. [email or web address] Not Available 03:12:20 11/03/19 24 03/12/2021 imagi ng/di agnos tic resul t No observ ation record ed. [email or web address] Not Available 03:12:25 Result Notes None recorded. Problems Name Problem SNOMED Code Status Onset Date Resolution Date Notes Provider Name and Address Organization Details Recorded Time Bilateral temporoma ndibular joint pain 65755541392 397395 Active 2018 Arthralgi a of bilateral temporoma ndibular joint; Note: Date Diagnosed : 07/27/2018 1:25 PM (M26.623) Not Available [facility] 4 02:46:53 Headache 18980499 Active 2018 Headache, unspecifi ed; Note: Changed from R51 to R51.9 ( 1 3:43 PM) , Date Diagnosed : 04/08/2018 12:10 PM (R51) Not Available [facility] 4 02:46:52 Pain of right temporoma ndibular joint [id number] 723037 Active 2016 Arthralgi a of right temporoma ndibular joint; Note: Date Diagnosed : 04/22/2016 1:59 PM (M26.621) Not Available [facility] 4 02:46:53 Sensorine ural hearing loss of bilateral ears 400184228 Active 2020 Sensorine ural hearing loss, bilateral ; Note: Date Diagnosed : 1 12:18 PM (H90.3) Not Available [facility] 4 02:46:50 Migraine 03339092 Active 2017 Other migraine, not intractab le, without status migrainos us; Note: Date Diagnosed : 03/25/2017 12:19 PM (G43.809) Not Available [facility] 4 02:46:55 Acute sinusitis 41428299 Active 2020 Other acute sinusitis ; Note: Date Diagnosed : 08/15/2020 1:41 PM (J01.80) Not Available [facility] 4 02:46:57 Gastroeso phageal reflux disease without esophagit is 838290741 Active 2017 Gastro-es ophageal reflux disease without esophagit is; Note: Date Diagnosed : 8 9:31 AM (K21.9) Not Available [facility] 4 02:46:51 Dizziness and giddiness 045463635 Active 2017 Dizziness and giddiness ; Note: Date Diagnosed : 03/25/2017 11:43 AM (R42) Not Available [facility] 4 02:46:55 Vasomotor rhinitis 5797251 Active 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; Note: Date Diagnosed : 03/25/2017 11:50 AM (J30.0) Not Available [facility] 4 02:46:50 Tinnitus of left ear 01379243443 06 Active 2017 Tinnitus, left ear; Note: Date Diagnosed : 03/25/2017 11:55 AM (H93.12) Not Available [facility] 4 02:46:57 Chronic rhinitis 65152154 Active 2013 Chronic pharyngit is and nasophary ngitis: Chronic rhinitis; CMS Risk: low risk CMS Treatment : new problem (to examiner) : no additiona l workup planned N ote: Date Diagnosed : 12/19/2013 12:00 PM (472.0) Not Available [facility] 4 02:46:56 Follow-up visit Active 2016 Encounter for follow-up examinati on after completed treatment for condition s other than malignant neoplasm; Note: Date Diagnosed : 7 4:29 PM (Z09) Not Available [facility] 4 02:46:56 Dysphasia 46820226 Active 2017 Dysphasia ; Note: Date Diagnosed : 8 9:31 AM (R47.02) Not Available [facility] 4 02:46:56 Posterior rhinorrhe a 86723884 Active 2016 Postnasal drip; Note: Date Diagnosed : 04/22/2016 1:54 PM (R09.82) Not Available [facility] 4 02:46:55 Acute pharyngit is 068496887 Active 2022 Sore throat (acute) NOS; Note: Date Diagnosed : 3 12:47 PM (J02.9) Not Available [facility] 4 02:46:56 Nasal congestio n 85330441 Active 2016 Nasal congestio n; Note: Date Diagnosed : 04/22/2016 1:54 PM (R09.81) Not Available [facility] 4 02:46:53 Allergic rhinitis 20843453 Active 2015 Other allergic rhinitis; Note: Changed from J30.9 to J30.89 ( 6 4:25 PM) , Date Diagnosed : 01/22/2016 3:54 PM (J30.9) Not Available [facility] 4 02:46:49 Nasal mucosa dry 66104067 Active 2023 QUETA MATTHEWS PA-C [address] [place] [address],[place] [address], [facility] [place], [address] , [facility] - [facility] 4 11:02:24 Problem Notes None recorded. Procedures Surgical History None recorded. Imaging Results Imaging Date Name Status LastModified by Organiz ation Details LastModified Time 07/27/2018 imaging/diag nostic result completed Information not available 11/03/2023 03:11:40 11/05/2020 imaging/diag nostic result completed Information not available 11/03/2023 03:12:02 01/01/2021 imaging/diag nostic result completed Information not available 11/03/2023 03:12:17 01/01/2021 imaging/diag nostic result completed Information not available 11/03/2023 03:12:20 03/12/2021 imaging/diag nostic result completed Information not available 11/03/2023 03:12:25 Procedure Notes None recorded. Medical Equipment None Reported. Allergies No known drug allergies Medications Name Sig Start Date Stop Date Status Note LastModified by Organization Details LastModified Time melatonin tr 10 mg tbcr active Not Available Not Available Not Available melatonin prolonged release 10 mg tbcr active Not Available Not Available Not Available Prescript ion - Prior Authoriza tion Request active Script Copy/La or Auth^Scr ipt Copy/La or Auth_ Not Available Not Available Not Available gabapenti n 600 mg tablet active Not Available Not Available Not Available doxycycli ne hyclate 100 mg capsule by mouth 08/15 completed Medicati on ID: [id number] D uration Value: 10 Prescri bed By Name: Janelle Leela s, PA-C Bra nd Name: doxycycl ine hyclate Send Method: E-Prescr ibed Sub s Allowed: subs OK Speci al Instruct ion: Take 1 po BID X 10 days Med icationG enericNa me: doxycycl ine hyclate Not Available Not Available Not Available ketoconaz ole 2 % shampoo 03/23 completed Not Available Not Available Not Available loperamid e 2 mg capsule PLEASE SEE ATTACHED FOR DETAILED DIRECTIO NS 03/23 completed Not Available Not Available Not Available tizanidin e 4 mg tablet TAKE 1 TABLET ORALLY 3 TIMES PER DAY NEEDED active Not Available Not Available No t Available fluconazo le 150 mg tablet TAKE 1 TABLET BY MOUTH MAY TAKE 1 TABLET 72 HOURS LATER IF SYMPTOMS HAVE NOT IMPROVED . 03/23 completed Not Available Not Available Not Available phenazopy ridine 200 mg tablet active Medicati on ID: [id number] B rand Name: phenazop yridine Send Method: E-Prescr ibed Sub s Allowed: subs OK Medic ationGen ericName : phenazop yridine Not Available Not Available Not Available sumatript an 25 mg tablet 12/30 completed Medicati on ID: [id number] Bra nd Name: sumatrip hubbard succinat e Send Method: E-Prescr ibed Sub s Allowed: subs OK Medic ationGen ericName : sumatrip hubbard succinat e Not Available Not Available Not Available metronida zole 0.75 % (37.5 mg/5 gram) vaginal gel INSERT 1 APPLIATO RFUL VAGINALL Y ONCE DAILY FOR 5 DAYS active Not Available Not Available No t Available ondansetr on HCl 4 mg tablet 12/30 completed Medicati on ID: [id number] D uration Value: 8 Brand Name: ondanset antony HCl Send Method: E-Prescr ibed Sub s Allowed: subs OK Medic ationGen ericName : ondanset antony HCl Not Available Not Available Not Available prednison e 20 mg tablet 2 tablet by mouth 12/30 completed Medicati on ID: [id number] D uration Value: 5 Prescri bed By Name: GUANAKO Romero nd Name: predniso ne Send Method: E-Prescr ibed Sub s Allowed: subs OK Medic ationGen ericName : predniso ne Not Available Not Available Not Available prednison e 5 mg tablet PLEASE SEE ATTACHED FOR DETAILED DIRECTIO NS 03/23 completed Not Available Not Available Not Available methylpre dnisolone 4 mg tablet PLEASE SEE ATTACHED FOR DETAILED DIRECTIO NS 03/23 completed Not Available Not Available Not Available terazosin 1 mg capsule TAKE 1 CAPSULE BY MOUTH AT BEDTIME active Not Available Not Available No t Available butalbita l-acetami nophen-ca ffeine 50 mg-325 mg-40 mg tablet 12/30 completed Medicati on ID: [id number] D uration Value: 2 Brand Name: butalbit al-aceta minophen -caff Se nd Method: E-Prescr ibed Sub s Allowed: subs OK Medic ationGen ericName : butalbit al-aceta minophen -caff Not Available Not Available Not Available ondansetr on 8 mg disintegr ating tablet DISSOLVE 1 TABLET ON THE TONGUE EVERY 8 HOURS NEEDED FOR NAUSEA 03/22 completed Not Available Not Available Not Available carbamaze pine 200 mg tablet 12/30 completed Medicati on ID: [id number] D uration Value: 30 Brand Name: carbamaz epine Se nd Method: E-Prescr ibed Sub s Allowed: subs OK Medic ationGen ericName : carbamaz epine Not Available Not Available Not Available lorazepam 0.5 mg tablet active Not Available Not Available Not Available tamsulosi n 0.4 mg capsule active Not Available Not Available Not Available dicyclomi ne 20 mg tablet TAKE 1 TABLET BY MOUTH BEFORE MEALS AND AT BEDTIME FOR STOMACH PAIN/SPA [facility] 03/22 completed Not Available Not Available Not Available tacrolimu s 0.1 % topical ointment active Not Available Not Available Not Available nitrofura ntoin macrocrys jairo 100 mg capsule 100 MG ORALLY 2 TIMES A DAY FOR 10 DAYS MUST ADMINIST ER WITH A MEAL/NEPTALI D 03/23 completed Not Available Not Available Not Available triamcino lone acetonide 0.1 % topical ointment active Not Available Not Available Not Available metronida zole 0.75 % topical cream active Not Available Not Available Not Available bupropion HCl 75 mg tablet active Not Available Not Available Not Available metoprolo l tartrate 50 mg tablet 12/30 completed Medicati on ID: [id number] Bra nd Name: metoprol ol tartrate Send Method: E-Prescr ibed Sub s Allowed: subs OK Medic ationGen ericName : metoprol ol tartrate Not Available Not Available Not Available misoprost ol 100 mcg tablet 12/30 completed Medicati on ID: [id number] Bra nd Name: misopros koki Send Method: E-Prescr ibed Sub s Allowed: subs OK Medic ationGen ericName : misopros koki Not Available Not Available Not Available ibuprofen 200 mg tablet 03/22 completed Medicati on ID: [id number] Bra nd Name: ibuprofe n Send Method: E-Prescr ibed Sub s Allowed: subs OK Medic ationGen ericName : ibuprofe n Not Available Not Available Not Available gabapenti n 300 mg capsule 01/05 completed Medicati on ID: [id number] [place] son: () Brand Name: gabapent in Send Method: E-Prescr ibed Sub s Allowed: subs OK Medic ationGen ericName : gabapent in Not Available Not Available Not Available omeprazol e 20 mg capsule,d elayed release TAKE 1 CAPSULE BY MOUTH EVERY DAY NEEDED ACID REFLUX active Not Available Not Available No t Available lisinopri l 5 mg tablet 07/08 completed Medicati on ID: [id number] [place] son: () Brand Name: lisinopr il Send Method: E-Prescr ibed Sub s Allowed: subs OK Medic ationGen ericName : lisinopr il Not Available Not Available Not Available zolpidem 5 mg tablet active Not Available Not Available Not Available azelastin e 137 mcg (0.1 %) nasal spray Use 2 sprays into each nostril twice daily 03/22 completed Not Available Not Available Not Available hydroxych loroquine 200 mg tablet TAKE 1 AND 1/2 TABLETS BY MOUTH EVERY DAY active Not Available Not Available No t Available estradiol 0.01% (0.1 mg/gram) vaginal cream FOR 30 DAYS VAGINALL Y 3 TIMES A WEEK PEA SIZED AMOUNT TO URETHRA 3 TIMES A WEEK 03/23 completed Not Available Not Available Not Available zolpidem 10 mg tablet 07/08 completed Medicati on ID: [id number] [place] son: () Brand Name: zolpidem Send Method: E-Prescr ibed Sub s Allowed: subs OK Medic ationGen ericName : zolpidem Not Available Not Available Not Available hydrocort isone 2.5 % topical ointment 03/23 completed Not Available Not Available Not Available hydroxyzi ne HCl 10 mg tablet active Not Available Not Available No t Available fluticaso ne propionat e 50 mcg/actua tion nasal spray,danielle pension Use 2 sprays into each nostril every day active Not Available Not Available No t Available doxepin 5 % topical cream 12/30 completed Medicati on ID: [id number] D uration Value: 23 Brand Name: doxepin Send Method: E-Prescr ibed Sub s Allowed: subs OK Medic ationGen ericName : doxepin Not Available Not Available Not Available metronida zole 0.75 % topical gel active Not Available Not Available Not Available ipratropi um bromide 21 mcg (0.03 %) nasal spray USE 2 SPRAYS EACH NOSTRILS 1-3 TIMES DAILY 15 MINUTES BEFORE MEALS active Not Available Not Available No t Available loratadin e 10 mg tablet TAKE 1 TABLET BY MOUTH EVERY DAY active Not Available Not Available No t Available diazepam 5 mg tablet 03/23 completed Medicati on ID: [id number] D uration Value: 1 Brand Name: diazepam Send Method: E-Prescr ibed Sub s Allowed: subs OK Medic ationGen ericName : diazepam Not Available Not Available Not Available amoxicill in 875 mg-potass ium clavulana te 125 mg tablet TAKE 1 TABLET BY MOUTH EVERY 12 HOURS WITH MEALS FOR 10 DAYS 03/23 completed Not Available Not Available Not Available escitalop qasim 10 mg tablet 03/23 completed Not Available Not Available Not Available escitalop qasim 20 mg tablet active Not Available Not Available Not Available bupropion HCl XL 150 mg 24 hr tablet, extended release 03/23 completed Medicati on ID: [id number] D uration Value: 30 Brand Name: bupropio n HCl Send Method: E-Prescr ibed Sub s Allowed: subs OK Speci al Instruct ion: TAKE 1 TABLET EVERY MORNING Medicati onGeneri cName: bupropio n HCl Not Available Not Available Not Available escitalop qasim 5 mg tablet 07/08 completed Medicati on ID: [id number] D uration Value: 30 Reason: () Brand Name: escitalo pram oxalate Send Method: E-Prescr ibed Sub s Allowed: subs OK Speci al Instruct ion: TAKE 1 TABLET BY MOUTH ONCE A DAY TAKE IN ADDITION TO 20MG TABLET, TDD =25MG Me dication GenericN wale: escitalo pram oxalate Not Available Not Available Not Available sodium fluoride 1.1 % dental cream APPLY DIRECTED TO TEETH THREE TIMES DAILY active Not Available Not Available No t Available diclofena c 1 % topical gel APPLY 2 G TOPICALL Y 2 TIMES A DAY NEEDED FOR PAIN APPLY TO JOINTS active Not Available Not Available No t Available omeprazol e magnesium 20 mg capsule,d elayed release 07/08 completed Medicati on ID: [id number] [place] son: () Brand Name: omemarta chris m Send Method: E-Prescr ibed Sub s Allowed: subs OK Medic ationGen ericName : omeprazo le magnesiu m Not Available Not Available Not Available Vitals Date Recorded Body height Body mass index (BMI) Body weight Provider Name and Address Organization Details Last Updated DateTime 09/21/2023 157.48 cm 25.6 kg/m2 94074.93 g Lorenza Villarreal [place] [facility] 09/21/2023 10:22:52 Date Recorded Body height Body weight Provider Name and Address Organization Details Last Updated DateTime 2024 157.48 cm 88527.93 g Lorenza Villarreal [place] - [facility] 2024 10:20:24 Social History None recorded. Functional Status None recorded. Mental Status None recorded. Family History Nothing Reported. Medical History Condition Response Allergies/Hayfever Y Heart Problems N Anxiety Y Tonsil Infections N Emphysema N Migraines N Thyroid Problems N Glaucoma N Depression Y COPD N Developmental Delay N Nasal or Sinus Problems Y Anemia N Immune System Disorder N Anesthesia Complications N Heart Attack (ID) Y Other Skin Condition Y Diabetes N Rhinitis N Bleeding Disorder N Food Allergy N Arthritis Y Hearing Loss N Hyperlipidemia N Cancer N Stroke N Dementia N Nasal polyps N Asthma N High Cholesterol N Sleep Disorder N GERD/Reflux N Liver Disease N Headaches Y Fibromyalgia Y Hypertension N Speech Delay N Kidney Disease Y Gynecological HistoryNo gynecological history recorded. Obstetrics History GPAL:G 0 P 0 0 0 0 Past Encounters Encounter ID Performer Location Encounter Start Date Encounter Closed Date Diagnosis/Indication Diagnosis SNOMED-CT Code Diagnosis ICD10 Code Diagnosis Note [id number] MARLA GARCIA MD [facility] [address] [facility] [place] [address] 09/21/2023 10:18:14 09/21/2023 10:37:56 Vasomotor rhinitis 1236480 J30.0 Nasal mucosa dry 5839875 2 J34.89 [id number] TY SMITH MD [facility] [address] [place] [address] 2024 10:14:30 2024 10:41:37 Acute sinusitis 47868697 J01.90 Nasal congestion 3348555 0 R09.81 Nasal mucosa dry 1220196 2 J34.89 Vasomotor rhinitis 10363 03 J30.0 Posterior rhinorrhea 758 25067 R09.82 Health Concerns Section Related Observation LastModified by Organization Detai ls LastModified Time None Recorded Concern Status LastModified by Organization Details LastModified Time None Recorded Advance Directives Directive None Recorded Payers Encounter Date Sequence Insurance Name Policy Number Policy Kuo Covered Member ID Kuo Member ID Guarantor Name 09/21/2023 1 [facility] (MEDICARE REPLACEMENT/ ADVANTAGE - HMO) [facility] Jessa Cyril Mily [id number] Jessa Minor 09/21/2023 2 [place] [facility] Jessa Bowerella [id number] Jessa Nam Mily 2024 1 [facility] (MEDICARE REPLACEMENT/ ADVANTAGE - HMO) [facility] Jessa Cyril Mily [id number] Jessa Minor Notes Date Note Type Note Provider Name and Address Organization Details Recorded Time 09/21/2023 text/html 68-year-old sergey bell presents for follow-up on rhinorrhea. She reports she still has intermittent gustatory rhinorrhea and postnasal drip despite Atrovent 15 minutes before each meal. She has been evaluated for allergies previously and found to be allergic only to mold. She has also restarted her fluticasone, 1 spray twice daily. She finds that the nasal mucosa is often dry. She denies purulent nasal drainage, facial pressure and sinus distribution, and hyposmia. MARLA MOYER MD [address] [facility],[place] [address], [place], [address], [facility] - [facility] 09/21/2023 11:31:24 2024 text/html 69 year old sergey bell presents for follow up on gustatory rhinitis and postnasal drip. Previously failed by trials of fluticasone and Atrovent. In September we initiated a trial of Astelin, which she has been applying with crossed-hand technique. It has helped with the volume of the rhinorrhea and the postnasal drip. Sometimes it causes burning in the left nare. She had a bout of purulent nasal drainage and underwent a 10 day course of antibiotics in mid-February. This resolved the purulence but in the past few days she has had a little bit of purulence again and a little blood when blowing. Her postnasal drip has increased in volume. She irrigates the nose with distilled saline solution once daily when her PND acts up, and this helps somewhat. She tries to avoid blowing the nose. She has stopped her fluticasone. TY SMITH MD [address] [facility] [address], [place], [address], [facility] 2024 16:46:20 OBGyn Episode No OBEpisode recorded.
[2024-04-07 16:39] LABS: Influenza A PCR NEGATIVE (Negative); Influenza B PCR NEGATIVE (Negative); Resp Syncy Virus RNA Qual PCR NEGATIVE (Negative); SARS COV2 PCR INHOUSE NEGATIVE (Negative)
--- OUTSIDE RECORDS SUMMARY | 2024-04-07 16:39 | XMS_ITS ---
Author Organization [facility] Address [address] [place] [address] Care Team Providers Care Rewinder Operator Helper Name Role Phone Nae LILLY, Osiris Primary Care Provider Alban Gerard Jr REASON FOR VISIT screening Encounters Encounter Location Date Provider Diagnosis [facility] Outpatient [address] [place] [id number] 01/07/2024 Alban Lopez Jr Colon cancer screening Z12.11 and Family history of colon cancer Z80.0 ASSESSMENTS Encounter Date Diagnosis Assessment Notes Treatment Notes Treatment Clinical Notes 01/07/2024 Colon cancer screening (ICD-10 - Z12.11) 01/07/2024 Family history of colon cancer (ICD-10 - Z80.0) PLAN OF TREATMENT No Information
--- OUTSIDE RECORDS SUMMARY | 2024-04-07 16:39 | XMS_ITS | Clinical Summary ---
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 Role Phone Osiris Soni MD Primary Care Provider Medical History Medical History Date Comments Hypertension 07/08/2011 DX:Hypertension Depression 07/08/2011 DX:Depression Anxiety state, unspecified 07/08/2011 DX:An xiety state, unspecified H/O alcohol abuse 07/08/2011 DX:H/O alcohol abuse Atypical chest pain 02/23/2012 DX:Atypical chest pain Family History Medical History Relation Name Comments Coronary artery disease Sister 1 Relation Name Status Comments Sister 1 Sister 2 Social History Tobacco Use Types Packs/Day Years Used Date Smoking Tobacco: Former Alcohol Use Standard Drinks/Week Comments Not Asked 0 (1 standard drink = 0.6 oz pur e alcohol) Sex and Gender Information Value Date Recorded Sex Assigned at Not on file Gender Identity Not on file Sexual Orientation Not on file Obstetrics History Plan of Treatment Health Maintenance Due Date Last Done Comments Breast Cancer Screening 1954 DTaP,Tdap,and Td Vaccines (1 - Tdap) 1973 Zoster Vaccines (1 of 2) 2004 Pneumococcal Vaccine: 65+ Ye ars (1 of 1 - PCV) 2019 Cholesterol Screening (Lipid Panel) 02/25/2022 Colorectal Cancer Screening: Colonoscopy 02/25/2022 Depression Screening 02/25/2022 Falls Risk Assessment 02/25/2022 Hepatitis C Screening 02/25/2022 Osteoporosis Screening (Bone Density Screening) 02/25/2022 Social Influencers of Health Screening 02/25/2022 Hypertension/CHF/CAD Annual BMP Blood Test 02/26/2022 COVID-19 Vaccine ( - 2023-2 5 season) 2023 Influenza Vaccine (#1) 2023 RSV Immunization Patients 60 + Years Old (1 - 1-dose 75+ series) 2029 HIB Vaccines Aged Out No longer eligi ble based on patient's age to complete this topic HPV Vaccines Aged Out No longer eligi ble based on patient's age to complete this topic Hepatitis A Vaccines Aged Out No long er eligible based on patient's age to complete this topic Hepatitis B Vaccines Aged Out No long er eligible based on patient's age to complete this topic IPV Vaccines Aged Out No longer eligi ble based on patient's age to complete this topic MMR Vaccines Aged Out No longer eligi ble based on patient's age to complete this topic Meningococcal ACWY Vaccine Aged Out N o longer eligible based on patient's age to complete this topic RSV Immunization Patients Un sadia 20 months Aged Out No longer eligible b ased on patient's age to complete this topic Varicella Vaccines Aged Out No longer eligible based on patient's age to complete this topic Care Teams Car Retarder Operator Relationship Specialty Start Date End Date Osiris Soni MD [address] [place] [address] PCP - General Internal Medicine 06/06/11
--- OUTSIDE RECORDS SUMMARY | 2024-04-07 16:39 | XMS_ITS ---
Author Organization [facility] Address [address] [place] [address] Care Team Providers Care Political Scientist Name Role Phone Nae LILLY, Osiris Primary Care Provider Alban Gerard Jr Unavailable ALLERGIES No Known Allergies REASON FOR VISIT Patient presents today for a colon screening MEDICATIONS Medication SIG (Take, Route, Frequency, Duration) Notes Start Date End Date Status Escitalopram Oxalate 10 MG 1 tablet Oral ly Once a day for 30 day(s) Active Amitriptyline HCl 10 MG 1 tablet at bedt afua Orally Once a day for 30 day(s) Active Zolpidem Tartrate 10 MG 1 tablet at bedt afua as needed Orally Once a day Active hydrOXYzine HCl 10 MG 1 tablet as needed Orally BID Active Gabapentin 300 MG 1 capsule Orally thr ee x a day Active Diclofenac Sod&Camphor-Menth ol 1.5 & 4-10 % as directed Externally Activ e tiZANidine HCl 2 MG 1 tablet as needed Orally Three times a day Active Centrum Silver 50+Women - as directed Orally Active LORazepam 0.5 MG 1 tablet at bedtime as needed Orally Once a day Active Melatonin 5 MG 1 tablet in the evening Orally Once a day for 30 day(s) Active MiraLax (colon prep) 17 GM/SCOOP mixed with Gatorade or Crystal Light Orally begin at 5:00 p.m. the day before the procedure for 1 day 11/29/2023 Active Loratadine 10 MG TAKE 1 TABLET BY CIERA TH EVERY DAY Oral for 90 Active methylPREDNISolone 4 MG PLEASE SEE [facility] FOR DETAILED DIRECTIONS Oral for 28 Active Tamsulosin HCl 0.4 MG 1 capsule Orally O nce a day for 30 day(s) Active Fluticasone Propionate (Inha l) 50 MCG/BLIST 1 puff Inhalation Twice a day Active buPROPion HCl 75 MG 1 tablet Orally Twic e a day Active Vitamin D 1000 UNIT 1 tablet Orally Once a day for 30 day(s) Active Hydroxychloroquine Sulfate 2 00 MG TAKE 1 AND 1/2 TABLET ORALLY DAILY Oral for 90 Active Ipratropium Aldie 0.03 % USE 2 SPRAYS EACH NOSTRILS 1-3 TIMES DAILY 15 MINUTES BEFORE MEALS Nasal for 90 Active Fluticasone Furoate 27.5 MCG/SPRAY 1 puff in each nostril Nasally Once a day Active SOCIAL HISTORY Tobacco Use: Social History Observation [...] W/U Status Risk SNOMED Code Notes Problem Gastric intestinal metaplasia (K31.A0) Active confirmed [id number] VITAL SIGNS BMI 23.76 kg/m2 11/29/2023 Blood pressure systolic 000 mm Hg 11/29/19 24 Blood pressure diastolic 00 mm Hg 024 Height 65.5 in 11/29/2023 Temperature 98.0 degrees Fahrenheit 11/29/19 24 Weight 145 lbs 11/29/2023 Encounters Encounter Location Date Provider Diagnosis [facility] [address] [facility] [address] [place] [id number] 11/29/2023 Alban Lopez Jr Gastro-esophageal reflux disease without esophagitis K21.9 ; Gastric intestinal metaplasia K31.A0 and Colon cancer screening Z12.11 ASSESSMENTS Encounter Date Diagnosis Assessment Notes Treatment Notes Treatment Clinical Notes 11/29/2023 Gastro-esophageal reflux disease without esophagitis (ICD-10 - K21.9) 11/29/2023 Gastric intestinal metaplasia (ICD-10 - K31.A0) 11/29/2023 Colon cancer screening (ICD-10 - Z12.11) Colonoscopy material was printed PLAN OF TREATMENT Medication Medication Name Sig Start Date Stop Date Notes MiraLax (colon prep) 17 GM/SCOOP mixed with Gatorade or Crystal Light Orally begin at 5:00 p.m. the day before the procedure for 1 day 11/29/2023 Treatment Notes Assessment Notes Colon cancer screening Colonoscopy mater ial was printed Future Test Test Name Order Date COLONOSCOPY 11/29/2023 Next Appt Details Follow Up: 1 Year, Reason:
--- OUTSIDE RECORDS SUMMARY | 2024-04-07 16:39 | XMS_ITS | Clinical Summary ---
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 3 Active hydrOXYzine HCl (Atarax) 10 MG tablet Take 10 mg by mouth if needed. 3 Active LORazepam (Ativan) 0.5 MG tablet TAKE 1/2 TO 1 TABLET BY MOUTH ONCE A DAY NEEDED 3 Active omeprazole (PriLOSEC) [address] capsule TAKE 1 CAPSULE BY MOUTH EVERY DAY NEEDED ACID REFLUX 3 Active tiZANidine (Zanaflex) 4 MG tablet TAKE 1 TABLET ORALLY 3 TIMES PER DAY NEEDED 3 Active amoxicillin-cla vulanate (Augmentin) 875-125 MG tablet TAKE 1 TABLET BY MOUTH TWICE A DAY FOR 14 DAYS WITH MEALS 3 Active hydroxychloroqu ine (Plaquenil) 200 MG tablet Take by mouth Once per day. 4 Active gabapentin (Neurontin) 300 MG capsule 1 capsule. Active Sodium Fluoride (PreviDent 5000 Plus) 1.1 % cream Apply 1 mg to teeth 3 times daily. 1 g 3 4 Active Encounters Date Type Department Care Team Description 02/16/2024 1:00 PM EST Office Visit [facility] [address] [place] [address] Erica Tejada DDS from Last 3 Months Social History Tobacco Use Types Packs/Day Years Used Date Smoking Tobacco: Former Cigarettes Passive Smoke Exposure: Never Smokeless Tobacco: Never Tobacco Cessation:Counseling Given: Not Answered Comments Unknown Sex and Gender Information Value Date Recorded Sex Assigned at Female 01/12/2022 10:17 AM EDT Legal Sex Female 10:17 AM EDT Gender Identity Male 01/12/2022 10:17 AM EDT Sexual Orientation Straight 01/12/2022 10 :17 AM EDT Last Filed Vital Signs Vital Sign Reading Time Taken Comments Blood Pressure 160/70 01/05/2024 10:03 AM EDT Pulse 65 08/25/2023 3:57 PM EDT Temperature - - Respiratory Rate - - Oxygen Saturation - - Inhaled Oxygen Concentration - - Weight - - Height - - Body Mass Index - - Plan of Treatment Health Maintenance Due Date Last Done Comments CT Colonography 1954 Colonoscopy 1954 Colorectal Cancer Screening 1954 Depression Screening 1954 FIT DNA/Cologuard 1954 FIT 1954 FOBT 1954 Lipid Panel 1954 SDOH Screening 1954 Sigmoidoscopy 1954 Alcohol/Substance Use Screening 1966 Hepatitis C Screening 1972 DTaP/Tdap/Td Vaccines (1 - Tdap) 1973 Mammogram 1994 Zoster Vaccines (1 of 2) 2004 Dental Oral Exam 08/25/2023 02/22/2023, , 01/31/2020, Additional history exists Dental X-Ray: Full Mouth 08/28/202308/26/2 021, 12/15/2012, 03/03/2012 COVID-19 Vaccine ( season) 2023 04/06/2023, 01/14/2022, 02/03/2021, Additional history exists Influenza Vaccine (#1) 2023 , 01/14/2022, 12/20/2020, Additional history exists Dental X-Ray: Bitewings 02/24/2024 02/23/20 23, 08/26/2020, 01/31/2020, Additional history exists Dental Prophylaxis 02/25/2024 08/25/2023, 1 04/25/2022, 02/05/2020, Additional history exists Tobacco Screening 02/15/2025 02/16/2024 RSV Patients and Patients Aged 60 years or older (1 - 1-dose 75+ series) 2029 Pneumococcal Vaccine: 65+ Years Completed 04/06/2023, 08/14/2022, 01/15/2021 HIB Vaccines Aged Out No longer eligi [...] patient's age to complete this topic Meningococcal Vaccine Aged Out No linnea jose eligible based on patient's age to complete this topic RSV under 20 months Aged Out No longe r eligible based on patient's age to complete this topic Rotavirus Vaccines Aged Out No longer eligible based on patient's age to complete this topic Procedures Procedure Name Priority Date/Time Associated Diagnosis Comments 11 LIMITED ORAL EVALUATION - PROBLEM FOCUSED Routine 02/16/2024 1:00 PM EST PROPHYLAXIS - ADULT Routine 08/25/2023 2 :00 PM EDT BITEWINGS - 4 RADIOGRAPHIC IMAGES Routine 02/22/2023 2:00 PM EST PERIODIC ORAL EVALUATION - ESTABLISHED PATIENT Routine 02/22/2023 2:00 PM EST DIAGNOSTIC - DIAGNOSTIC IMAGING - INTRAORAL - COMPREHENSIVE SERIES OF RADIOGRAPHIC IMAGES Routine 08/26/2020 12:00 AM EDT from Last 3 Months or Most Recently Relevant to Health Maintenance Insurance DENTAL - [facility]
--- OUTSIDE RECORDS SUMMARY | 2024-04-07 16:39 | XMS_ITS ---
Author Name Jenae Larson NP Address [address] [place] [address] Phone [phone] Organization [facility] Care Team Providers Care Facility Planner Name Role Phone Jenae Larson Unavailable [phone] Unavailable Unavailable Unavailable JohnAlban bonner Unavailable [phone] Reason for Referral Not Available Allergies, adverse reactions, alerts No known allergies History of medication use Medication Class Instructions Start Date End Date Fluticasone Propionate 50 MCG/ACT Suspension SPRAY 2 SPRAYS INTO EACH NOSTRIL EVERY DAY 2022-05-13 No Data Available Loratadine 10 mg Tab TAKE 1 TABLET BY MO UTH EVERY DAY 2022-05-13 No Data Available Omeprazole 20 mg Cap delayed rel TAKE 1 CAPSULE BY MOUTH EVERY DAY NEEDED FOR ACID REFLUX 2022-06-22 No Data Available Azelaic Acid 15 % Gel APPLY TO FACE TWICE A DAY 07-28 No Data Available Hydrocortisone 2.5 % Oint APPLY TO INFRA MAMMARIES TWICE DAILY NEEDED FLARES, DECREASE SYMPTOMS IMPROVE 2022-07-28 No Data Available hydrOXYzine 10 mg Tab TAKE 1 TABLET BY M OUTH NEEDED 2022-07-28 No Data Available Nitrofurantoin Macrocrystal 100 mg Cap 100 MG ORALLY 2 TIMES A DAY FOR 10 DAYS MUST ADMINISTER WITH A MEAL/FOOD 2022-07-30 No Data Available Estradiol 0.1 mg/GM Crm FOR 30 DAYS VAGI ARI 3 TIMES A WEEK PEA SIZED AMOUNT TO URETHRA 3 TIMES A WEEK 2022-10-08 No Data Available Gabapentin 600 mg Tab 1 tab po tid 2022-10-15 No Andrea a Available Daily Value Multivitamin Tab No Data Available 2022-10 No Data Available Fish Oil 1000 mg Cap No Data Available 2022-10-15 No Data Available Oyster Shell Calcium 500 mg Tab 1 tablet orally one time 2022-10-15 No Data Availab le Magnesium Oxide -Mg Suppleme nt 500 mg Tab 1 tab once daily 2022-10-15 No Data Available Citalopram Hydrobromide 10 m g Tab 1 tab daily 2022-10-15 No Data Available buPROPion 75 mg Tab 1 tab daily 2022-10-15 No Data Available Ambien 5 mg Tab 1 tablet orally edu y at bedtime as needed 2022-10-15 No Data Available metroNIDAZOLE 0.75 % Gel 1 application t opically to affected area 2 times per day 2022-10-15 No Data Available Tacrolimus 0.1 % Oint 1 application topi tootie to affected area 2 times per day PRN for flaky skin 2022-08-21 No Data Available Diclofenac Sodium 1 % Gel BID PRN 2022-10-15 20 06-07-25 Ketoconazole 2 % Shampoo 1 application t opically to scalp every 2 weeks PRN on scalp 2022-10-15 No Data Available EpiCeram Emulsion Twice daily topically 2022-10-15 N o Data Available Tamsulosin 0.4 mg Cap 1 capsule orally o ne time daily QHS 2022-09-16 No Data Available tiZANidine 4 mg Tab 1 tablet orally 3 ti mes per day as needed 2023-01-05 No Data Available Ondansetron 8 mg Tab Disintegrating 1 tablet orally every 8 hours as needed nausea 2023-02-03 No Data Available Dicyclomine 20 mg Tab TAKE 1 TABLET BY M OUTH BEFORE MEALS AND AT BEDTIME FOR STOMACH PAIN/SPASMS 2023-02-03 No Data Available Loperamide 2 mg Cap 2 tablets after firs t loose stool, then take 1 tablet after each loose stool max 4 times daily 2023-02-03 No Data Available Amoxicillin-Pot Clavulanate 875/125 mg Tab TAKE 1 TABLET BY MOUTH TWICE A DAY FOR 14 DAYS WITH MEALS 2023-02-09 No Data Available Diflucan 150 mg Tab Take 1 tablet PO. Ma y take 1 tablet 72 hours later if symptoms have not improved. 2023-02-23 No Data Available Miconazole Nitrate 2 % Crm Vaginal Apply to affected area daily x 7 days. 2023-02-23 No Data Available Ipratropium [place] 0.03 % Solution USE 2 SPRAYS EACH NOSTRILS 1-3 TIMES DAILY 15 MINUTES BEFORE MEALS 2023-05-06 No Data Available Diclofenac Sodium 1 % Gel 4 grams topica lly to affected area 4 times per day PRN 2023-07-09 No Data Available Loratadine 10 mg Tab TAKE 1 TABLET BY MO [facility] EVERY DAY 2023-07-27 No Data Available Escitalopram Oxalate 20 mg Tab No Data Available 06-10 No Data Available Triamcinolone Acetonide 0.1 % Oint No Data Available 2022-08-20 No Data Available Hydroxychloroquine Sulfate 2 00 mg Tab TAKE 1 AND 1/2 TABLETS BY MOUTH EVERY DAY 2023-08-19 No Data Available Problem List Problem Status Onset Date Resolved Date Atopic eczema Active 2022-10-15 N/A Back pain Active 2022-10-15 N/A Frequent falls Active 2022-10-15 N/A Major depressive, Bipolar II disorder Active 05-20-02 N/A h/o Non-ST elevation (NSTEMI) myocardial infarction Ac tive 2022-10-15 N/A GastritisUC (ulcerative coli tis)GERD (gastroesophageal reflux disease) Active 2022-10-15 N/A Urinary retentionUrinary inc ontinence-OAB (overactive bladder) Active 2022-10-15 N/A Health maintenance examination Active 2023-02-23 N/A Hypertension Active 2022-10-15 N/A Lupus Active 2023-08-30 N/A Other problems related to [facility] facilities and other health care Active 2023-08-30 N/A Vaginal yeast infection Resolved 2023-02-232023 Sinus congestion Resolved 2022-10-20 2023-08-30 Pinched nerve Resolved 2023-01-05 2023-08-30 Rheumatoid arthritis with Im munodeficiency due to conditions classified elsewhere Active 2022-10-15 N/A Encounters Encounters Type Facility Date of Service Diagnosis/Co mplaint No Data Available [facility], ([place] Other specified disorders of nose and nasal sinuses No Data Available [facility] [place]20[place] No Data Available [facility] No Data Available [facility] No Data Available [facility] No Data Available [facility] No Data Available [facility], ([place]) 10/20/2022 New patient,40-59min; chronic exacerbation, 2 stable chronic or 1 acute illness add add modifier 95 for video (do not use for phone, instead use [id number]) [facility] ([place]20[place] Rheumatoid arthritis, unspecifiedUlcerative colitis, unspecified, without complicationsAtopic dermatitis, unspecifiedRash and other nonspecific skin eruptionEssential (primary) hypertensionBipolar II disorderGastritis, unspecified, without bleedingDorsalgia, unspecifiedRetention of urine, unspecifiedRepeated fallsGastro-esophageal reflux disease without esophagitisOld myocardial infarction New patient,40-59min; chronic exacerbation, 2 stable chronic or 1 acute illness add add modifier 95 for video (do not use for phone, instead use 63691-69) [facility], [place] New patient,40-59min; chronic exacerbation, 2 stable chronic or 1 acute illness add add modifier 95 for video (do not use for phone, instead use 62440-27) [facility], [place]20[place] New patient,40-59min; chronic exacerbation, 2 stable chronic or 1 acute illness add add modifier 95 for video (do not use for phone, instead use [id number]) [facility], ([place] New patient,40-59min; chronic exacerbation, 2 stable chronic or 1 acute illness add add modifier 95 for video (do not use for phone, instead use 17063-25) [facility], [place] New patient,40-59min; chronic exacerbation, 2 stable chronic or 1 acute illness add add modifier 95 for video (do not use for phone, instead use 09711-80) [facility], [place] New patient,40-59min; chronic exacerbation, 2 stable chronic or 1 acute illness add add modifier 95 for video (do not use for phone, instead use [id number]) [facility], ([place]20[place] New patient,40-59min; chronic exacerbation, 2 stable chronic or 1 acute illness add add modifier 95 for video (do not use for phone, instead use [id number]) [facility] [place] No Data Available [facility] Mononeuropathy, unspecified No Data Available [facility]20[place] Essential (primary) hypertensionBipolar II disorderOld myocardial infarctionRheumatoid arthritis, unspecifiedGastritis, unspecified, without bleedingUlcerative colitis, unspecified, without complicationsDorsalgia, unspecifiedAtopic dermatitis, unspecifiedRash and other nonspecific skin eruptionRetention of urine, unspecifiedRepeated fallsGastro-esophageal reflux disease without esophagitisNasal congestionMononeuropathy, unspecified No Data Available [facility], [place]16[place]2023 No Data Available [facility] No Data Available [facility] No Data Available [facility] [place] No Data Available [facility]2023 No Data Available [facility] 02[place]03/2023 Ulcerative colitis, unspecif ied, without complicationsGastritis, unspecified, without bleedingGastro-esophageal reflux disease without esophagitisRetention of urine, unspecifiedUnspecified urinary incontinenceOveractive bladder No Data Available [facility] 02[place]20[place] Acute candidiasis of vulva a nd vaginaEncntr for general adult medical exam w/o abnormal findingsEssential (primary) hypertension No Data Available [facility] [place] No Data Available [facility] No Data Available [facility] [place] No Data Available [facility] 02[place] No Data Available [facility] 06[place]/2023 Rheumatoid arthritis, unspec ified No Data Available [facility] 07[place]09/2023 Rheumatoid arthritis, unspec ified No Data Available [facility] [place] 07[place]09[place]2023 No Data Available [facility]/09[place]2023 No Data Available [facility], ([place] 07/09/2023 No Data Available [facility] 07/13/2023 Rheumatoid arthritis, unspec ified No Data Available [facility] 07/13/2023 No Data Available [facility] [place] 07/13/2023 Estab. patient 30-39min; chronic exacerbation, 2 stable chronic or 1 acute illness add add modifier 95 for video, (do not use for phone, instead use [id number]) [facility] ([place] 08/30/2023 Essential (primary) hypertensionBipolar II disorderOld myocardial infarctionRheumatoid arthritis, unspecifiedImmunodeficiency due to conditions classified elsewhereGastritis, unspecified, without bleedingUlcerative colitis, unspecified, without complicationsGastro-esophageal reflux disease without esophagitisDorsalgia, unspecifiedRash and other nonspecific skin eruptionAtopic dermatitis, unspecifiedRetention of urine, unspecifiedUnspecified urinary incontinenceOveractive bladderRepeated fallsSystemic lupus erythematosus, unspecifiedOther problems related to medical facilities and other health care Estab. patient 30-39min; chronic exacerbation, 2 stable chronic or 1 acute illness add add modifier 95 for video, (do not use for phone, instead use 44233-05) [facility] ([place] 08[place]30/20[place] Estab. patient 30-39min; chronic exacerbation, 2 stable chronic or 1 acute illness add add modifier 95 for video, (do not use for phone, instead use 37557-47) [facility], ([place] 08/30/20[place] Estab. patient 30-39min; chronic exacerbation, 2 stable chronic or 1 acute illness add add modifier 95 for video, (do not use for phone, instead use 98026-77) [facility] [place] 08/30/2023 Estab. patient 30-39min; chronic exacerbation, 2 stable chronic or 1 acute illness add add modifier 95 for video, (do not use for phone, instead use 34050-42) [facility] [place] 08[place]30/20[place] Estab. patient 30-39min; chronic exacerbation, 2 stable chronic or 1 acute illness add add modifier 95 for video, (do not use for phone, instead use 41407-06) [facility] [place] 08[place]30/20[place] Estab. patient 30-39min; chronic exacerbation, 2 stable chronic or 1 acute illness add add modifier 95 for video, (do not use for phone, instead use 31336-39) [facility] [place] 08[place]30/20[place] Estab. patient 30-39min; chronic exacerbation, 2 stable chronic or 1 acute illness add add modifier 95 for video, (do not use for phone, instead use 03783-82) [facility] [place] 08[place]30/2023 Estab. patient 30-39min; chronic exacerbation, 2 stable chronic or 1 acute illness add add modifier 95 for video, (do not use for phone, instead use 02984-61) [facility] [place] 08/30/2023 Estab. patient 30-39min; chronic exacerbation, 2 stable chronic or 1 acute illness add add modifier 95 for video, (do not use for phone, instead use 20799-28) [facility], ([place] 08/30/2023 Vital Signs Date of Collection Vitals 2022-10-20 13:56:36 Weight - 65.77 kgBod y Mass Index (BMI) - 25.69 kg/m2BP Diastolic - 75.0 mm[Hg]BP Systolic - 136.0 mm[Hg]Heart Rate - 75.0 /minRespiratory Rate - 18.0 /minPain Scale - 4.0 {score} 2023-01-16 13:22:08 Weight - 65.77 kgBP Diastolic - 80.0 mm[Hg]BP Systolic - 130.0 mm[Hg]Pain Scale - 4.0 {score} 2023-02-23 11:16:05 BP Diastolic - 80.0 mm[Hg]BP Systolic - 134.0 mm[Hg] 2023-07-09 12:04:19 BP Diastolic - 75.0 mm[Hg]BP Systolic - 192.0 mm[Hg]Heart Rate - 76.0 /min 2023-07-13 13:35:59 Weight - 65.77 kgPai n Scale - 4.0 {score} 2023-08-30 12:35:57 Height - 152.4 cmWei ght - 66.23 kgBody Mass Index (BMI) - 28.51 kg/m2BP Diastolic - 61.0 mm[Hg]BP Systolic - 108.0 mm[Hg]Pain Scale - 6.0 {score} Social History Sex Female History of Procedures Procedures Service Procedure code Service date Servicing provider Phone# No Data Available [id number] 2022-10-20 No Data Available No Data Available Medication List Documented (1159F) 1159F 2022-10-20 No Data Available No Data Anastacia ilable Functional Status Assessed (1170F) 1170F 2022-10-20 No Data Available No Data Avail able Pain Assessment - Pain Documented (1125F) 1125F 2022-10-20 No Data Available No Data Availa ble BMI obtained (3008F) 3008F 2022-10-20 No Data Availab le No Data Available SBP 130-139 (3075F) 3075F 2022-10-20 No Data Availabl e No Data Available DBP <80 (3078F) 3078F 2022-10-20 No Data Available No Data Available New patient,40-59min; chronic exacerbation, 2 stable chronic or 1 acute illness add add modifier 95 for video (do not use for phone, instead use [id number]) 33898 2022-10-15 No Data Available No Data Availa ble Pain Assessment - Pain Documented (1125F) 1125F 2022-10-15 No Data Available No Data Availa ble Medication List Documented (1159F) 1159F 2022-10-15 No Data Available No Data Anastacia ilable Medication Review by prescribing provider or pharmacist documented (1160F) 1160F 2022-10-15 No Data Available No Data Anastacia ilable Advance Care Directive Advance care planning discussion documented in the medical record (1158F) 1158F 2022-10-15 No Data Available No Data Availa ble BMI obtained (3008F) 3008F 2022-10-15 No Data Availab le No Data Available Advance care planning discussed and documented ? advance care plan or surrogate decision-maker was documented in the medical record. (1123F) 1123F 2022-10-15 No Data Available No Data Availa ble Functional Status Assessed (1170F) 1170F 2022-10-15 No Data Available No Data Avail able No Data Available [id number] 2023-01-05 No Data Available No Data Available No Data Available 2023-01-16 No Data Available No Data Available SBP 130-139 (3075F) 3075F 2023-01-16 No Data Availabl e No Data Available DBP 80-89 (3079F) 3079F 2023-01-16 No Data Available No Data Available Pain Assessment - Pain Documented (1125F) 1125F 2023-01-16 No Data Available No Data Availa ble Functional Status Assessed (1170F) 1170F 2023-01-16 No Data Available No Data Avail able Medication List Documented (1159F) 1159F 2023-01-16 No Data Available No Data Anastacia ilable No Data Available 2023-02-03 No Data Available No Data Available No Data Available 2023-02-23 No Data Available No Data Available SBP 130-139 (3075F) 3075F 2023-02-23 No Data Availabl e No Data Available DBP 80-89 (3079F) 3079F 2023-02-23 No Data Available No Data Available Functional Status Assessed (1170F) 1170F 2023-02-23 No Data Available No Data Avail able Pain Assessment - NO pain present (1126F) 1126F 2023-02-23 No Data Available No Data A vailable No Data Available 2023-06-11 No Data Available No Data Available No Data Available 2023-07-09 No Data Available No Data Available Medication List Documented (1159F) 1159F 2023-07-09 No Data Available No Data Anastacia ilable SBP >= 140 3077F 2023-07-09 No Data Available No Data Available DBP <80 (3078F) 3078F 2023-07-09 No Data Available No Data Available No Data Available 2023-07-13 No Data Available No Data Available Pain Assessment - Pain Documented (1125F) 1125F 2023-07-13 No Data Available No Data Availa ble Medication List Documented (1159F) 1159F 2023-07-13 No Data Available No Data Anastacia ilable Estab. patient 30-39min; chronic exacerbation, 2 stable chronic or 1 acute illness add add modifier 95 for video, (do not use for phone, instead use [id number]) 19490 2023-08-30 No Data Available No Data Availa ble Medication List Documented (1159F) 1159F 2023-08-30 No Data Available No Data Anastacia ilable Medication Review by prescribing provider or pharmacist documented (1160F) 1160F 2023-08-30 No Data Available No Data Anastacia ilable Pain Assessment - Pain Documented (1125F) 1125F 2023-08-30 No Data Available No Data Availa ble BMI obtained (3008F) 3008F 2023-08-30 No Data Availab le No Data Available Advance Care Directive Advance care planning discussion documented in the medical record (1158F) 1158F 2023-08-30 No Data Available No Data Availa ble Advance care planning discussed and documented ? advance care plan or surrogate decision-maker was documented in the medical record. (1123F) 1123F 2023-08-30 No Data Available No Data Availa ble SBP < 130 (3074F) 3074F 2023-08-30 No Data Available No Data Available DBP <80 (3078F) 3078F 2023-08-30 No Data Available No Data Available Functional Status Assessed (1170F) 1170F 2023-08-30 No Data Available No Data Avail able Functional Status Functional Category Effective Dates Cognition Status: Oriented to Person, Pl david and Time 2023-08-30 IADL: Medication Needs [place] tance , Meal Prep Needs Assistance , Shopping Needs Assistance , Driving or Public Transport Needs Assistance , Housework Needs Assistance , Finances Independent 2023-08-30 ADL: Bathing Needs Assistanc e , Dressing Independent , Eating Independent , Ambulation Independent , Transferring Independent and Toileting Independent 2023-08-30 How many falls within the last 6 months? None 2023-08-30 Do you worry about falling? No 2023-08-14 7 Near falls within the last 6 months? Non e 2023-08-30 Do you feel unsteady on your feet? No 05-09-16 DME used with ambulation: [employer] 2023-08-14 7 Social Supports - # of Inter actions with Friends/Family in a typical week: daily 2023-08-30 Mental Status Status Date alert and oriented x3 2023-08-30 Assessments Date of Service Assessments 2022-10-20 13:56:36 Follow up plan for a cute symptoms: 2022-10-15 08:06:00 HypertensionMajor de pressive, Bipolar II disorderh/o Non-ST elevation (NSTEMI) myocardial infarctionRheumatoid arthritisGastritisUlcerative colitisBack painAtopic eczemaUrinary retentionFrequent fallsGERD (gastroesophageal reflux disease) 2023-01-05 08:48:39 Follow up plan for a cute symptoms:Pinched nerve 2023-01-16 13:22:08 HypertensionMajor de pressive, Bipolar II disorderh/o Non-ST elevation (NSTEMI) myocardial infarctionRheumatoid arthritisGastritisUlcerative colitisBack painAtopic eczemaUrinary retentionFrequent fallsGERD (gastroesophageal reflux disease)Sinus congestionPinched nerve 2023-02-03 06:24:36 Follow up plan for a cute symptoms:GastritisUC (ulcerative colitis)GERD (gastroesophageal reflux disease)Urinary retentionUrinary incontinence-OAB (overactive bladder) 2023-02-23 11:16:05 Health maintenance e xaminationcolonoscopy next due 01/2024, polyps found, but not cancerous.Hypertension10/15/22-Not currently taking any bp medications per member as she reports most readings good". Exact readings by member could not be recalled.1. Encouraged to contact CB for early signs of CHF including dyspnea, fatigue, cough, edema/weight gain. Notify for a gain of more than 2-3lbs in 1 day or more than 5 pounds in 1 week.2. Encourage to limit dietary sodium3. Weigh daily02/23/23 BP 134/80Vaginal yeast infectionVaginal yeast infection symptoms of itchy vaginal area, slightly tender at labia minora area. Cottage cheese-like drainage started 2-3 days ago. has been taking augmentin for 13 days, tomorrow will finish given by PCP for sinus infection. No foul-smelling drainage. No Urinary pain or burning. Diflucan 150 mg today, then another dose in 3 days. Can use monistat 3 for labia mirora for itchy and sensitivity too 2023-06-11 03:10:01 Rheumatoid arthritis [M06.9] Bilateral on/off pain on LE's, more like a sharp/tingling sensation. Denies redness, inflammation, recent injuries/falls. Patient verbalized she had not taken medications: Gabapentin as ordered nor apply Diclofenac Gel.COURTNEY recommended to take medications, elevate LE's, apply warm compresses. She agreed to plan of care. 2023-07-09 12:04:19 Follow up plan for a cute symptoms: 07/12/23 with RheumatologyRheumatoid arthritis 2023-07-13 13:35:59 Rheumatoid arthritis 2023-08-30 12:35:57 HypertensionMajor de pressive, Bipolar II disorderh/o Non-ST elevation (NSTEMI) myocardial infarctionRheumatoid arthritis with Immunodeficiency due to conditions classified elsewhereGastritisUC (ulcerative colitis)GERD (gastroesophageal reflux disease)Back painAtopic eczemaUrinary retentionUrinary incontinence-OAB (overactive bladder)Frequent fallsHealth maintenance examinationLupusOther problems related to medical facilities and other health care Plan of Care Date of Service Plans 2022-10-20 13:56:36 Televideo 20-29min; 1 stable chronic or 2 minor; add modifier 95Continue to see PCP. Follow-up with Mallory as needed for any acute or disease education needs that may arise 05/10. 2022-10-15 08:06:00 Pain Assessment - NO pain documented (1126F)Medication Review by prescribing provider or pharmacist documented (1160F)Medication List Documented (1159F)Functional Status Assessed (1170F)Advance Care Directive Advance care planning discussion documented in the medical record (1158F)BMI obtained (3008F)Televideo new patient,40-59min; chronic exacerbation, 2 stable chronic or 1 acute illness add modifier 95Advance care planning discussed and documented ? advance care plan or surrogate decision-maker was documented in the medical record. (1123F)Advance care planning discussed and documented in the medical record ? beneficiary/patient did not wish to or was unable to provide an advance care plan or name a surrogate decision-maker. (1124F)DBP <80 (3078F)SBP >= 140Continue to see PCP. Follow-up with Mallory as needed for any acute or disease education needs that may arise.10/15/22-Not currently taking any bp medications per member as she reports most readings good . Exact readings by member could not be recalled. Checks bp frequently and reaches as high 190/?? when stressed or anxious.1. Encouraged to contact CB for early signs of CHF including dyspnea, fatigue, cough, edema/weight gain. Notify for a gain of more than 2-3lbs in 1 day or more than 5 pounds in 1 week.2. Encourage to limit dietary sodium3. Weigh daily10/15/22: Currently taking citalopram, bupropion, hydroxyzine. GEETA 7 and PHQ2 3. Member reports she has suffered a lot of loss, losing her daughter 7 years ago. She worries frequently and current stressor is her water heater which has been broken for 2 weeks but will be fixed tomorrow. Follows with counselor twice a week and awaiting provider assignment from psychiatry as her previous is out of the office. No suicidal/homicidal ideations at this time.1. Member given CB phone number and tablet directions2. Follow up with scheduled counseling sessions3. Follow up with Psychiatry for provider assignment10/15/22: LHC done in 09/2022. No interventions.1. F/u with cardiology and or PCP as scheduled2. Complete ECHO as scheduled10/15/22: Reports joint pain and reports relief with Diclofenac gel.10/15/22: EGD 09/25/22 but has to repeat for unknown reasons10/15/22-Stopped taking unknown medication but scheduled to f/u with PCP next month10/15/22-Receives steroid/epidural injections. Taking Tyshawn 600 TID1. Follow up with pain center and or PCP as scheduled2. Take medications as prescribed10/15/22: Hydrocortisone ointment as needed. Managed by Dermatology. Ketoconazole shampoo for hair and Flagyl gel for body. Symptoms managed with current treatment.10/15/22: Reports urinary retention and managed with Flomax1. Dz management discussed2. Continue to follow up with PCP10/15/22: Last fall a couple weeks ago due to dizziness. Bruise to right leg, no other injuries.1. Keep walking area clear and ensure proper lighting 2. Report dizziness immediately as this can increase of falls3. Follow up with pain and PCP regarding lower back painOn Omeprazole10/15/22: Avoid dietary triggers caffeine, chocolate, spicy foods, food with high fat content, carbonated beverages, and peppermintEncourage abdominal breathing exercises take 30minutes on empty stomach before mealscont to watch low levels of vitamin D level, Ca, FE, B12, MGDiscussed measures to improve GERD management like avoiding large meals and eating more frequent smaller meals, elevating the head of the bed while sleeping, decreasing fried, spicy, or fatty foods, and avoid eating less than four hours before bedtime. 2023-01-05 08:48:39 Phone (patient, pare nt, or guardian); 11-20 minutes of medical discussion (no modifier 95)Continue to see PCP. Follow-up with [facility] as needed for any acute or disease education needs that may arise 05/10.01/05/23:- Sent in Rx for Tizanidine 4mg TID PRN- Tylenol q6h PRN pain- Cont. to take Gabapentin 600mg TID, as directed by PM- Apt. 01/25 scheduled already. 2023-01-16 13:22:08 Phone (patient, pare nt, or guardian); 5-10 minutes of medical discussion (no modifier 95)Continue to see PCP. Follow-up with [facility] as needed for any acute or disease education needs that may arise 05/10.10/15/22-Not currently taking any bp medications per member as she reports most readings good . Exact readings by member could not be recalled. Checks bp frequently and reaches as high 190/?? when stressed or anxious.1. Encouraged to contact CB for early signs of CHF including dyspnea, fatigue, cough, edema/weight gain. Notify for a gain of more than 2-3lbs in 1 day or more than 5 pounds in 1 week.2. Encourage to limit dietary sodium3. Weigh daily10/15/22: Currently taking citalopram, bupropion, hydroxyzine. GEETA 7 and PHQ2 3. Member reports she has suffered a lot of loss, losing her daughter 7 years ago. She worries frequently and current stressor is her water heater which has been broken for 2 weeks but will be fixed tomorrow. Follows with counselor twice a week and awaiting provider assignment from psychiatry as her previous is out of the office. No suicidal/homicidal ideations at this time.1. Member given CB phone number and tablet directions2. Follow up with scheduled counseling sessions3. Follow up with Psychiatry for provider assignment10/15/22: LHC done in 09/2022. No interventions.1. F/u with cardiology and or PCP as scheduled2. Complete ECHO as scheduled10/15/22: Reports joint pain and reports relief with Diclofenac gel.10/15/22: EGD 09/25/22 but has to repeat for unknown reasons10/15/22-Stopped taking unknown medication but scheduled to f/u with PCP next month10/15/22-Receives steroid/epidural injections. Taking Tyshawn 600 TID1. Follow up with pain center and or PCP as scheduled2. Take medications as prescribed10/15/22: Hydrocortisone ointment as needed. Managed by Dermatology. Ketoconazole shampoo for hair and Flagyl gel for body. Symptoms managed with current treatment.10/15/22: Reports urinary retention and managed with Flomax1. Dz management discussed2. Continue to follow up with PCP10/15/22: Last fall a couple weeks ago due to dizziness. Bruise to right leg, no other injuries.1. Keep walking area clear and ensure proper lighting 2. Report dizziness immediately as this can increase of falls3. Follow up with pain and PCP regarding lower back painOn Omeprazole10/15/22: Avoid dietary triggers caffeine, chocolate, spicy foods, food with high fat content, carbonated beverages, and peppermintEncourage abdominal breathing exercises take 30minutes on empty stomach before mealscont to watch low levels of vitamin D level, Ca, FE, B12, MGDiscussed measures to improve GERD management like avoiding large meals and eating more frequent smaller meals, elevating the head of the bed while sleeping, decreasing fried, spicy, or fatty foods, and avoid eating less than four hours before bedtime.ns flush, warm compress to sinus area, continue to monitor. call back if pain does not resolve in 1 day or becomes worst01/05/23:- Sent in Rx for Tizanidine 4mg TID PRN- Tylenol q6h PRN pain- Cont. to take Gabapentin 600mg TID, as directed by PM- Apt. 01/25 scheduled already. 2023-02-03 06:24:36 Phone (patient, pare nt, or guardian); 5-10 minutes of medical discussion (no modifier 95)Continue to see PCP. Follow-up with [facility] as needed for any acute or disease education needs that may arise 05/10.02/03/23- continue plan of care and conservative measures eRx New Loperamide 2 mg Cap 2 tablets after first loose stool, then take 1 tablet after each loose stool max 4 times daily #30 capsule [id number] New Dicyclomine 20 mg Tab TAKE 1 TABLET BY MOUTH AC/HS for stomach pain/spasms #60 tablet [id number] New Ondansetron 8 mg Tab Disintegrating 1 tablet orally every 8 hours as needed nausea #30 tablet RFx0hx: 10/15/22: EGD 09/25/22 but has to repeat for unknown reasonsUC: 10/15/22-Stopped taking unknown medication but scheduled to f/u with PCP next monthGERD: -On Omeprazole10/15/22: Avoid dietary triggers caffeine, chocolate, spicy foods, food with high fat content, carbonated beverages, and peppermintEncourage abdominal breathing exercises take 30minutes on empty stomach before mealscont to watch low levels of vitamin D level, Ca, FE, B12, MGDiscussed measures to improve GERD management like avoiding large meals and eating more frequent smaller meals, elevating the head of the bed while sleeping, decreasing fried, spicy, or fatty foods, and avoid eating less than four hours before bedtime.pt in need of new order for incontinence supplies- will order per pt's requestsincontinence liners/inserts quantity sufficient for QID sara-care- personal hygiene wipes- hand soap and motor and generator brush cutter as per prior order- box of medium gloves- to follow up with case monitor and PCP for further monitoring and management hx: 10/15/22: Reports urinary retention and managed with Flomax1. Dz management discussed2. Continue to follow up with PCP 2023-02-23 11:16:05 New Diflucan 150 mg Tab Take 1 tablet PO. May take 1 tablet 72 hours later if symptoms have not improved. #2 tablet WIs2Pki Miconazole Nitrate 2 % Crm Vaginal Apply to affected area daily x 7 days. #1 applicator [id number] (patient, parent, or guardian); 11-20 minutes of medical discussion (no modifier 95)Continue to see PCP. Follow-up with [facility] as needed for any acute or disease education needs that may arise 2023-06-11 03:10:01 Tx:Follow up plan fo r acute symptoms: take medications (Gabapentin), elevate LE's, apply warm compresses. She agreed to plan of care. Call CB back if s/s does not improvePhone (patient, parent, or guardian); 5-10 minutes of medical discussion (no modifier 95)Continue to see PCP. Follow-up with [facility] as needed for any acute or disease education needs that may arise 05/10. 2023-07-09 12:04:19 Phone (patient, pare nt, or guardian); 5-10 minutes of medical discussion (no modifier 95)Continue to see PCP. Follow-up with [facility] as needed for any acute or disease education needs that may arise 05/10.10/15/22: Reports joint pain and reports relief with Diclofenac gel.07/09/23: bilateral hand pain - Left more than right. Using diclofenac gel with some relief.Tylenol - 1 tab on occasion - does not take routinelyAlternate tylenol, ibuprofenDiclofenac 4 times daily - is only applying twice daily.May use ice/heat packs as neededGentle exercises or stretching dailyStay active.Continue to monitor for increased s/s.F/U with Rheumatology on 07/12/23 at scheduled apptF/U with COURTNEY 07/13/23 2023-07-13 13:35:59 Phone (patient, pare nt, or guardian); 5-10 minutes of medical discussion (no modifier 95)Continue to see PCP. Follow-up with [facility] as needed for any acute or disease education needs that may arise 05/10.10/15/22: Reports joint pain and reports relief with Diclofenac gel.07/09/23: bilateral hand pain - Left more than right. Using diclofenac gel with some relief.Tylenol - 1 tab on occasion - does not take routinelyAlternate tylenol, ibuprofenDiclofenac 4 times daily - is only applying twice daily.May use ice/heat packs as neededGentle exercises or stretching dailyStay active.Continue to monitor for increased s/s.F/U with Rheumatology on 07/12/23 at scheduled apptF/U with COURTNEY pt was seen by pcp earlier today, x ray was done, pt was started on prednisone tper 2023-08-30 12:35:57 Medication Review by prescribing provider or pharmacist documented (1160F)Medication List Documented (1159F)Functional Status Assessed (1170F)Advance Care Directive Advance care planning discussion documented in the medical record (1158F)BMI obtained (3008F)SBP < 130 (3074F)DBP <80 (3078F)Televideo 30-39min; chronic exacerbation, 2 stable chronic or 1 acute illness add modifier 95Advance care planning discussed and documented ? advance care plan or surrogate decision-maker was documented in the medical record. (1123F)Pain Assessment - Pain Documented (1125F)Continue to see PCP. Follow-up with [facility] as needed for any acute or disease education needs that may arise.10/15/22-Not currently taking any bp medications per member as she reports most readings good . Exact readings by member could not be recalled.1. Encouraged to contact CB for early signs of CHF including dyspnea, fatigue, cough, edema/weight gain. Notify for a gain of more than 2-3lbs in 1 day or more than 5 pounds in 1 week.2. Encourage to limit dietary sodium3. Weigh daily02/23/23 BP 134/8010/15/22: Currently taking citalopram, bupropion, hydroxyzine. GEETA 7 and PHQ2 3. Member reports she has suffered a lot of loss, losing her daughter 7 years ago. She worries frequently and current stressor is her water heater which has been broken for 2 weeks but will be fixed tomorrow. Follows with counselor twice a week and awaiting provider assignment from psychiatry as her previous is out of the office. No suicidal/homicidal ideations at this time.1. Member given CB phone number and tablet directions2. Follow up with scheduled counseling sessions3. Follow up with Psychiatry for provider assignment10/15/22: LHC done in 09/2022. No interventions.1. F/u with cardiology and or PCP as scheduled2. Complete ECHO as scheduled10/15/22: Reports joint pain and reports relief with Diclofenac gel.07/09/23: bilateral hand pain - Left more than right. Using diclofenac gel with some relief.Tylenol - 1 tab on occasion - does not take routinelyAlternate tylenol, ibuprofenDiclofenac 4 times daily - is only applying twice daily.May use ice/heat packs as neededGentle exercises or stretching dailyStay active.Continue to monitor for increased s/s.F/U with Rheumatology on 07/12/23 at scheduled apptF/U with COURTNEY pt was seen by pcp earlier today, x ray was done, pt was started on prednisone tperImmunodeficiency due to: RA, Lupus, ulcerative colitisweakened immune system, encourage hand washing, avoid large crowds, stay up to date on vaccines (annual flu), monitor for and report early any s/s of kykozmfyo12/22/23- continue plan of care and conservative measures eRx New Loperamide 2 mg Cap 2 tablets after first loose stool, then take 1 tablet after each loose stool max 4 times daily #30 capsule [id number] New Dicyclomine 20 mg Tab TAKE 1 TABLET BY MOUTH AC/HS for stomach pain/spasms #60 tablet [id number] New Ondansetron 8 mg Tab Disintegrating 1 tablet orally every 8 hours as needed nausea #30 tablet RFx0hx: 10/15/22: EGD 09/25/22 but has to repeat for unknown reasonsUC: 10/15/22-Stopped taking unknown medication but scheduled to f/u with PCP next monthGERD: -On Omeprazole10/15/22: Avoid dietary triggers caffeine, chocolate, spicy foods, food with high fat content, carbonated beverages, and peppermintEncourage abdominal breathing exercises take 30minutes on empty stomach before mealscont to watch low levels of vitamin D level, Ca, FE, B12, MGDiscussed measures to improve GERD management like avoiding large meals and eating more frequent smaller meals, elevating the head of the bed while sleeping, decreasing fried, spicy, or fatty foods, and avoid eating less than four hours before bedtime.10/15/22-Receives steroid/epidural injections. Taking Tyshawn 600 TID1. Follow up with pain center and or PCP as scheduled2. Take medications as prescribed10/15/22: Hydrocortisone ointment as needed. Managed by Dermatology. Ketoconazole shampoo for hair and Flagyl gel for body. Symptoms managed with current treatment.pt in need of new order for incontinence supplies- will order per pt's requestsincontinence liners/inserts quantity sufficient for QID sara-care- personal hygiene wipes- hand soap and motor and generator brush cutter as per prior order- box of medium gloves- to follow up with case monitor and PCP for further monitoring and management hx: 10/15/22: Reports urinary retention and managed with Flomax1. Dz management discussed2. Continue to follow up with PCP10/15/22: Last fall a couple weeks ago due to dizziness. Bruise to right leg, no other injuries.1. Keep walking area clear and ensure proper lighting 2. Report dizziness immediately as this can increase of falls3. Follow up with pain and PCP regarding lower back paincolonoscopy next due 01/2024, polyps found, but not cancerous.HYDROXYCHLOROQUINE 200 MG TABf/u with pcp annuallyMonthly follow up calls with ptCONTINGENCY PLANWhy was the member in the hospital or ER most recently? Why are they most likely to go back?Please call [facility] if you have a change in condition, Blood pressure > 170/90Acute illness, change in condition or medication and with any questions about your healthFall, any unusual symptoms or have any medical questions! Goals Date Goal 2022-10-20 do a NS nasal flush, apply warm compresses to you sinuses. if the pain does not resolve by tomorrow or if it gets worst please call us again 2022-10-15 Continue taking medi cations as directed and keep all follow up appointments with established PCP and Specialist. 2023-02-23 Pamelalucraheel and nikos barillas sent, call anytime if no improvement Health Concerns Date Concern 2023-08-30 Visit completed well[facility] santos audio/video. Patient/Guardian agreed to visit via telehealth. Today, patient has chief complaint of: follow up care and comprehensive review.Reviewed Allergies, Medications, Active Medical conditions, past medical/surgical history, Social history. 2023-08-30 <add details of Adva nce Care Planning conversation using .acp FastKey> Advance Care Plan and Serious Illness ConversationDate of Conversation: 08/30/2023Life Limiting Diagnosis: Diagnosis: noneCurrently on Hospice NoCode Status: YES CPR: Attempt ResuscitationGoals of Care: Curative: Attempt to sustain life by all medically effective meansNutrition goals: No decision made about nutrition today; not discussedDo you have a Durable Power of Health And Wellness Instructor for Healthcare, or Healthcare Proxy Or Guardianship? Yes, POAIf so, Who? (Enter Proxy/Health Care surrogate contact information in Golgi)Do you have a written Advance Directive? Has Advance DirectiveOther details of discussion: (Who was present, patients description of wishes/goals)Today's plan: Advised patient to discuss wishes with [id number] : AD or surrogate was documented in the medical record. 2023-08-30 Most recent hospital stay(s) or ER visit(s) and precipitating factors: denies er visit 2023-08-30 Open HEDIS Measure valentino whitney: Reviewed
[2024-04-07 20:01] VITALS: BP 169/67; PULSE 79; RESP 18; TEMP 36.7; O2SAT 97
[2024-04-07 20:05] VITALS: BP 169/67; PULSE 79; RESP 18; TEMP 36.7; O2SAT 97
== END 2024-04-07 20:05 | disposition home or self-care (01) ==
PROVIDERS: Registered Nurse Emergency; Emergency Provider Emergency Medicine Emergency Medical Services; PCP Internal Medicine
DX: J06.9 Acute upper respiratory infection, unspecified (principal); R06.02 Shortness of breath; R05.9 Cough, unspecified; Z03.818 Encounter for observation for suspected exposure to other biological agents ruled out; Z79.899 Other long term (current) drug therapy
CPT/HCPCS: 0241U; 71046; 80053; 85025; 99283

== ENCOUNTER → 2024-04-07 15:44 | Outpatient (BNV) | payer OTHER, SELFPAY | PROVIDERS: PCP Internal Medicine; Visit Provider Radiology Diagnostic Radiology | DX: R05.9 Cough, unspecified (principal) | CPT/HCPCS: 71046 ==

== ENCOUNTER 2024-04-12 13:01 | Outpatient (AMB) | payer OTHER, SELFPAY ==
--- NOTE | 2024-04-12 13:27 | A.OFFPC_ITS ---
Vital Signs 04/12/24 13:28 Height 5 ft 4 in Weight 147 lb BMI 25.2 BP 156/70 H Blood Pressure Location Rt brachial Position Sitting Pulse 84 Pulse Source Pulse Oximeter Temp 98.0 F Temp Source Oral Pulse Oximetry (%) 99 Oxygen Delivery Method Room Air Intake Visit Reasons: [facility] ER sinus Allergies prednisone Adverse Reaction (Intermediate, Verified 04/13/24 02:33) Anxiety Medication List - Last Reconciled 04/12/24 by Osiris Soni MD ascorbic acid (vitamin C) mg PO bupropion HCl 1 tab PO DAILY diclofenac sodium 1% 2 grams topical BID PRN escitalopram oxalate 10 mg PO DAILY@1300 PRN fluticasone propionate 50 mcg/actuation (Flonase Allergy Relief) 2 sprays intranasal DAILY gabapentin 1 tab PO DAILY geriatric [id number]-[id number] (Centravites 50 Plus tablet) 1 tab PO DAILY hydroxychloroquine 300 mg (1.5 x 200 mg) PO DAILY [Levbid ] lorazepam 0.5 mg PO DAILY PRN melatonin 10 mg PO BEDTIME PRN omeprazole 20 mg PO DAILY PRN tacrolimus 0.1% 1 applic topical Q OTHER DAY [thumb spica wear nightly & as much as possible throughout the day] triamcinolone acetonide 0.1% 1 appl topical BID PRN zolpidem 2.5 mg PO BEDTIME PRN Tobacco use date assessed: 04/12/24 Fall risk assessment: No Falls in past year Last assessed Fall Risk: 04/12/24 Dental Screening Dental Screen Date: 04/12/24 Did you have a dental visit in the last 12 months?: Yes Did you have a dental problem in the last 6 months where you did not have access to dental care?: No Was dental information given to patient?: Patient has dentist HPI [facility] ER sinus HPI Details 69-year-old female with past medical his tory significant for lupus, GERD, hyperlipidemia, hypertension, chronic sinusitis, here today for ER follow- up. Last seen at emergency room 04/07/24 for evaluation of shortness of breath and cough occasionally productive of greenish phlegm. No accompanying fever. She was seen by her ENT a month ago and treated for acute sinusitis with Augmentin, and has an appointment for follow-up with him on 04/18/2024. ER doctor wanted to place her on prednisone for her for symptomatic control but patient declined stating that medication makes her very irritable, and prescribed azithromycin instead. Patient however did not fill this at the pharmacy as she was told by her pharmacist that there is strong drug interaction with her lupus medication. She states that another round of Augmentin was called in by the ER provider. Still complaining of facial pain mainly on the left cheek accompanied by nasal congestion rhinorrhea worse at night. Afebrile, cough resolved. [facility] Medical History Venous insufficiency Right carotid bruit Diverticulitis Bipolar 1 disorder GERD (gastroesophageal reflux disease) History of cervical cancer Irritable bowel syndrome with constipation Weak urinary stream Surgical menopause Osteopenia Essential hypertension Dyslipidemia Anxiety Surgical History History of cardiac cath Hx of esophagogastroduodenoscopy Hx of colonoscopy History of partial hysterectomy Family History Father Throat cancer Mother No problems noted. Brother No problems noted. Sister No problems noted. Sister No problems noted. Sister No problems noted. Sister Hyperlipidemia HTN (hypertension) Depression Myocardial infarction Daughter No problems noted. Daughter No problems noted. Daughter No problems noted. Daughter No problems noted. Paternal Aunt Rheumatoid arthritis Other Mental health disorder Substance use disorder Social History Housing: Apartment Alcohol intake: current Alcohol intake frequency: does not drink Alcohol type: wine Patient Tobacco Use Status: Former Tobacco user e-Cigarette/Vaping Use: Never Used Advance Directives Date on File: 01/15/23 service: No Current occupational status: unemployed Cognitive needs: No Hearing needs: No Vision needs: No Questionnaire Thrive Questionnaire Date Thrive assessed: 08/17/23 GEETA-7 AMB Questionnaire GEETA-7 Date GEETA - 7 assessed: 08/17/23 Source: Developed by Drs. Howie Leavitt, Ellie Kirkpatrick, Ponce Magdaleno and colleagues, with an educational nathanael from [employer]. Review of Systems Const All systems reviewed & are unremarkable except as noted in HPI and below Physical exam (Primary Care) Vital Signs: Last Vital Signs Temp 98.0 F 04/12/24 13:28 Pulse 84 04/12/24 13:28 BP 156/70 H 04/12/24 13:28 Pulse Ox 99 04/12/24 13:28 Oxygen Delivery Method Room Air 04/12/24 13:28 BMI result Body Mass Index 25.2 Tobacco/Smoking Status: Tobacco use Status Tobacco use date assessed 04/12/24 04/12/24 13:32 Patient Tobacco Use Status Former Tobacco user 04/12/24 13:32 e-Cigarette/Vaping Use Never Used 04/12/24 13:32 Thrive Assessment: Date of Thrive Assessment Date Thrive assessed 08/17/23 04/12/24 13:32 Const Other: Alert oriented x3, no acute distress noted ambulatory normal gait HENMT Other: Tender to palpation over left maxillary area, slight puffiness over left cheek noted, swollen inferior nasal turbinates bilaterally Ears: external ears normal, TM's normal bilaterally and EAC's normal Face and sinus: Yes sinus tenderness (Left maxillary) Mouth: Normal oral and palatal mucosa present, oropharynx normal and moist mucous membranes Neck Neck: Yes full ROM, Yes no lymphadenopathy and Yes supple Resp Auscultation: clear to auscultation bilaterally Cardio Other: S1-S2 present regular rate and rhythm Coding Level of Care Code Est Pt Level 3 (46757) Diagnoses Acute sinusitis with symptoms > 10 days J01.90 Assessment & Plan Assessment & Plan (1) Acute sinusitis with symptoms > 10 days: Code(s): J01.90 - Acute sinusitis, unspecified Plan: Advised to continue taking the antibiotic, and keep appointment with ENT rosanna Silverio in [place] on [facility] on 04/18/2024
[2024-04-12 13:28] VITALS: BP 156/70; PULSE 84; TEMP 36.7; O2SAT 99; BMI 25.2
--- OUTSIDE RECORDS SUMMARY | 2024-04-12 15:08 | XMS_ITS | Data Portability ---
Author Organization [place] - [facility], Allergy Address [address] [address] Care Team Providers Care Spray Machine Operator Name Role Phone PENELOPE CORNELIUS Primary Care Provider Assessment Encounter Date Assessment Date Assessment LastModified [...] spray 2023 [address] [place], [address] [facility], [place], [place], [id number], 09/21/2023 10:31:40 Patient TargetsNo targets recorded. Patient [...] Recorded Time Bilateral temporoma ndibular joint pain [id number] 843243 Active 2018 Arthralgi a of bilateral temporoma ndibular joint; Note: Date Diagnosed : 07/27/2018 1:25 PM (M26.623) Not Available [facility] 4 02:46:53 Headache 93021294 Active 2018 Headache, unspecifi ed; Note: Changed from R51 to R51.9 ( 1 3:43 PM) , Date Diagnosed : 04/08/2018 12:10 PM (R51) Not Available [facility] 4 02:46:52 Pain of right temporoma ndibular joint 62298922186 023435 Active 2016 Arthralgi a of right temporoma ndibular joint; Note: Date Diagnosed : 04/22/2016 1:59 PM (M26.621) Not Available [facility] 4 02:46:53 Sensorine ural hearing loss of bilateral ears 980672568 Active 2020 Sensorine ural hearing loss, bilateral ; Note: Date Diagnosed : 1 12:18 PM (H90.3) Not Available [facility] 4 02:46:50 Migraine 52511267 Active 2017 Other migraine, not intractab le, without status migrainos us; Note: Date Diagnosed : 03/25/2017 12:19 PM (G43.809) Not Available [facility] 4 02:46:55 Acute sinusitis 73053060 Active 2020 Other acute sinusitis ; Note: Date Diagnosed : 08/15/2020 1:41 PM (J01.80) Not Available [facility] 4 02:46:57 Gastroeso phageal reflux disease without esophagit is 020107637 Active 2017 Gastro-es ophageal reflux disease without esophagit is; Note: Date Diagnosed : 8 9:31 AM (K21.9) Not Available [facility] 4 02:46:51 Dizziness and giddiness 374628408 Active 2017 Dizziness and giddiness ; Note: Date Diagnosed : 03/25/2017 11:43 AM (R42) Not Available [facility] 4 02:46:55 Vasomotor rhinitis 6124763 Active 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; Note: Date Diagnosed : 03/25/2017 11:50 AM (J30.0) Not Available [facility] 4 02:46:50 Tinnitus of left ear 52381548620 06 Active 2017 Tinnitus, left ear; Note: Date Diagnosed : 03/25/2017 11:55 AM (H93.12) Not Available [facility] 4 02:46:57 Chronic rhinitis 39982755 Active 2013 Chronic pharyngit is and nasophary ngitis: Chronic rhinitis; CMS Risk: low risk CMS Treatment : new problem (to examiner) : no additiona l workup planned N ote: Date Diagnosed : 12/19/2013 12:00 PM (472.0) Not Available [facility] 4 02:46:56 Follow-up visit Active 2016 Encounter for follow-up examinati on after completed treatment for condition s other than malignant neoplasm; Note: Date Diagnosed : 7 4:29 PM (Z09) Not Available [facility] 4 02:46:56 Dysphasia 64626636 Active 2017 Dysphasia ; Note: Date Diagnosed : 8 9:31 AM (R47.02) Not Available [facility] 4 02:46:56 Posterior rhinorrhe a 95300057 Active 2016 Postnasal drip; Note: Date Diagnosed : 04/22/2016 1:54 PM (R09.82) Not Available [facility] 4 02:46:55 Acute pharyngit is 346546157 Active 2022 Sore throat (acute) NOS; Note: Date Diagnosed : 3 12:47 PM (J02.9) Not Available [facility] 4 02:46:56 Nasal congestio n 64895579 Active 2016 Nasal congestio n; Note: Date Diagnosed : 04/22/2016 1:54 PM (R09.81) Not Available [facility] 4 02:46:53 Allergic rhinitis 05590992 Active 2015 Other allergic rhinitis; Note: Changed from J30.9 to J30.89 ( 6 4:25 PM) , Date Diagnosed : 01/22/2016 3:54 PM (J30.9) Not Available [facility] 4 02:46:49 Nasal mucosa dry 72065308 Active 2023 QUETA MATTHEWS PA-C [address] [place] [address],[place] [address], [facility] [place], [address] , [facility] - [facility] 4 11:02:24 Problem Notes None recorded. Procedures [...] by mouth 08/15 completed Medicati on ID: [id number] D uration Value: 10 Prescri bed By [...] 200 mg tablet active Medicati on ID: [id number] B rand Name: phenazop yridine Send Method: E-Prescr ibed Sub s Allowed: subs OK Medic ationGen ericName : phenazop yridine Not Available Not Available Not Available sumatript an 25 mg tablet 12/30 completed Medicati on ID: [id number] Bra nd Name: sumatrip hubabrd succinat e Send Method: E-Prescr ibed Sub [...] mg tablet 12/30 completed Medicati on ID: [id number] D uration Value: 8 Brand Name: ondanset antony HCl Send Method: E-Prescr ibed Sub s Allowed: subs OK Medic ationGen ericName : ondanset antony HCl Not Available Not Available Not Available prednison e 20 mg tablet 2 tablet by mouth 12/30 completed Medicati on ID: [id number] D uration Value: 5 Prescri bed By [...] mg tablet 12/30 completed Medicati on ID: [id number] D uration Value: 2 Brand Name: butalbit [...] mg tablet 12/30 completed Medicati on ID: [id number] D uration Value: 30 Brand Name: carbamaz [...] MEALS AND AT BEDTIME FOR STOMACH PAIN/SPA [facility] 03/22 completed Not Available Not Available [...] tablet 07/08 completed Medicati on ID: [id number] [place] son: () Brand Name: zolpidem Send Method: [...] topical cream 12/30 completed Medicati on ID: [id number] D uration Value: 23 Brand Name: doxepin [...] mg tablet 03/23 completed Medicati on ID: [id number] D uration Value: 1 Brand Name: diazepam [...] extended release 03/23 completed Medicati on ID: [id number] D uration Value: 30 Brand Name: bupropio n HCl Send Method: E-Prescr ibed Sub s Allowed: subs OK Speci al Instruct ion: TAKE 1 TABLET EVERY MORNING Medicati onGeneri cName: bupropio n HCl Not Available Not Available Not Available escitalop qasim 5 mg tablet 07/08 completed Medicati on ID: [id number] D uration Value: 30 Reason: () Brand [...] Updated DateTime 09/21/2023 157.48 cm 25.6 kg/m2 56950.93 g Lorenza Villarreal [place] - [facility] 09/21/2023 10:22:52 Date Recorded Body height Body weight Provider Name and Address Organization Details Last Updated DateTime 2024 157.48 cm 41286.93 g Lorenza Villarreal [place] - [facility] 2024 10:20:24 Social History None recorded. Functional [...] Disorder N Anesthesia Complications N Heart Attack (SD) Y Other Skin Condition Y Diabetes N Rhinitis N Bleeding Disorder N Food Allergy N Arthritis Y Hearing Loss N Hyperlipidemia N Cancer N Stroke N Dementia N Nasal polyps N Asthma N Sleep Disorder N GERD/Reflux N High Cholesterol N Liver Disease N Headaches Y Fibromyalgia Y Hypertension N Speech Delay N Kidney Disease Y Gynecological HistoryNo gynecological history recorded. Obstetrics History GPAL:G 0 P 0 0 0 0 Past Encounters Encounter ID Performer Location Encounter Start Date Encounter Closed Date Diagnosis/Indication Diagnosis SNOMED-CT Code Diagnosis ICD10 Code Diagnosis Note [id number] MARLA GARCIA MD [facility] 100 [place] [address] 09/21/2023 10:18:14 09/21/2023 10:37:56 Vasomotor rhinitis 2581785 J30.0 Nasal mucosa dry 0336459 2 J34.89 [id number] TY SMITH MD [facility] 100 [place] [address] 2024 10:14:30 2024 10:41:37 Acute sinusitis 35542408 J01.90 Nasal congestion 7001198 0 R09.81 Nasal mucosa dry 0829173 2 J34.89 Vasomotor rhinitis 12595 03 J30.0 Posterior rhinorrhea 758 13573 R09.82 Health Concerns Section Related Observation LastModified by Organization Detai ls LastModified Time None Recorded Concern Status LastModified by Organization Details LastModified Time None Recorded Advance Directives Directive None Recorded Payers Encounter Date Sequence Insurance Name Policy Number Policy Kuo Covered Member ID Kuo Member ID Guarantor Name 09/21/2023 1 [facility] (MEDICARE REPLACEMENT/ ADVANTAGE - HMO) [facility] Jessa Cyril Mily [id number] Jessa Minor 09/21/2023 2 [place] [facility] Jessa Bowerella [id number] Jessa Nam Mily 2024 1 [facility] (MEDICARE REPLACEMENT/ ADVANTAGE - HMO) [facility] Jessa Cyril Mily [id number] Jessa Minor Notes Date Note Type Note [...] distribution, and hyposmia. MARLA MOYER MD 100 [facility],[place] [address], [place], [address], [facility] - [facility] 09/21/2023 11:31:24 2024 text/html 69 year old [...] stopped her fluticasone. TY SMITH MD 100 [facility] 100, [place], [address], [facility] 2024 16:46:20 OBGyn Episode No OBEpisode recorded.
--- OUTSIDE RECORDS SUMMARY | 2024-04-12 15:09 | XMS_ITS | Encounter Summary ---
Author Organization [facility] Address 75 [facility] 7 [place] [address] Care Team Providers Care Enterer Name Role Phone Unavailable Primary Care Provider [...]
--- OUTSIDE RECORDS SUMMARY | 2024-04-12 15:09 | XMS_ITS ---
Author Organization [facility] Address [address] [place] [address] Care Team Providers Care Martial Arts Instructor Name Role Phone Nae LILLY, Osiris Primary Care Provider Paula Lopez Jr, Alban Larsen REASON FOR VISIT labs Encounters Encounter Location Date Provider Diagnosis [facility] [address] [place] [address] 11/27/2022 Alban Lopez Jr PLAN OF TREATMENT No Information
--- OUTSIDE RECORDS SUMMARY | 2024-04-12 15:09 | XMS_ITS ---
Author Organization [facility] Address [address] [place] [address] Care Team Providers Care Human Resources Benefits Manager Name Role Phone Nae LILLY, Osiris Primary Care Provider Alban Gerard Jr [phone] REASON FOR VISIT screening Encounters Encounter Location Date Provider Diagnosis [facility] Outpatient [address] [place] [id number] 01/07/2024 Alban Lopez Jr Colon cancer screening Z12.11 and Family history of colon cancer Z80.0 ASSESSMENTS Encounter Date Diagnosis Assessment Notes Treatment Notes Treatment Clinical Notes 01/07/2024 Colon cancer screening (ICD-10 - Z12.11) 01/07/2024 Family history of colon cancer (ICD-10 - Z80.0) PLAN OF TREATMENT No Information
--- OUTSIDE RECORDS SUMMARY | 2024-04-12 15:09 | XMS_ITS | Clinical Summary ---
Author Organization [employer] Address 75 [facility] 7 [place] [address] Care Team Providers Care Medical Reimbursement Specialist Name Role Phone Unavailable Primary Care Provider [...] Description 02/16/2024 1:00 PM EST Office Visit [facility] [address] [place] [address] Erica Tejada DDS from Last 3 Months [...] - 1-dose 75+ series) 2029 Pneumococcal Vaccine: 50+ Years Completed 04/06/2023, 08/14/2022, 01/15/2021 HIB Vaccines [...] Relevant to Health Maintenance Insurance DENTAL - [facility]
--- OUTSIDE RECORDS SUMMARY | 2024-04-12 15:09 | XMS_ITS | Continuity of Care Document ---
Author Organization [place] [facility], [facility] Address [address] [place] [address] Care Team Providers Care Flare Stitcher Name Role Phone PENELOPE CORNELIUS Primary Care [...] bleeding or nasal endoscopy if still symptomatic. [email or web address] Not available 2024 10:59:19 Plan of Treatment Reminders Order Date Submit Date Provider Last Modified By Organization Details Last Modified Time Details Appointments Establish ed 15 2024 09:30A M QUETA MATTHEWS PA-C Not available Not available Not available Lab None recorded. Referral None recorded. Procedures None recorded. Surgeries None recorded. Imaging None recorded. Medication Orders None recorded. Patient TargetsNo targets recorded. Patient InstructionsNo instructions recorded. Reason for Referral None Reported. Problems Name Problem SNOMED Code Status Onset Date Resolution Date Notes Provider Name and Address Organization Details Recorded Time Bilateral temporoma ndibular joint pain [id number] 870447 Active 2018 Arthralgi a of bilateral temporoma ndibular joint; Note: Date Diagnosed : 07/27/2018 1:25 PM (M26.623) Not Available [facility] 4 02:46:53 Headache 27540512 Active 2018 Headache, unspecifi ed; Note: Changed from R51 to R51.9 ( 3:43 PM) , Date Diagnosed : 04/08/2018 12:10 PM (R51) Not Available [facility] 4 02:46:52 Pain of right temporoma ndibular joint 62521590761 240459 Active 2016 Arthralgi a of right temporoma ndibular joint; Note: Date Diagnosed : 04/22/2016 1:59 PM (M26.621) Not Available [facility] 4 02:46:53 Sensorine ural hearing loss of bilateral ears 560000198 Active 2020 Sensorine ural hearing loss, bilateral ; Note: Date Diagnosed : 12:18 PM (H90.3) Not Available [facility] 4 02:46:50 Migraine 48075854 Active 2017 Other migraine, not intractab le, without status migrainos us; Note: Date Diagnosed : 03/25/2017 12:19 PM (G43.809) Not Available [facility] 4 02:46:55 Acute sinusitis 84625132 Active 2020 Other acute sinusitis ; Note: Date Diagnosed : 08/15/2020 1:41 PM (J01.80) Not Available [facility] 4 02:46:57 Gastroeso phageal reflux disease without esophagit is 101497480 Active 2017 Gastro-es ophageal reflux disease without esophagit is; Note: Date Diagnosed : 8 9:31 AM (K21.9) Not Available [facility] 4 02:46:51 Dizziness and giddiness 804572954 Active 2017 Dizziness and giddiness ; Note: Date Diagnosed : 03/25/2017 11:43 AM (R42) Not Available [facility] 4 02:46:55 Vasomotor rhinitis 4517520 Active 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; Note: Date Diagnosed : 03/25/2017 11:50 AM (J30.0) Not Available [facility] 4 02:46:50 Tinnitus of left ear 48968096840 06 Active 2017 Tinnitus, left ear; Note: Date Diagnosed : 03/25/2017 11:55 AM (H93.12) Not Available [facility] 4 02:46:57 Chronic rhinitis 88871515 Active 2013 Chronic pharyngit is and nasophary ngitis: Chronic rhinitis; CMS Risk: low risk CMS Treatment : new problem (to examiner) : no additiona l workup planned N ote: Date Diagnosed : 12/19/2013 12:00 PM (472.0) Not Available [facility] 4 02:46:56 Follow-up visit Active 2016 Encounter for follow-up examinati on after completed treatment for condition s other than malignant neoplasm; Note: Date Diagnosed : 7 4:29 PM (Z09) Not Available [facility] 4 02:46:56 Dysphasia 91860318 Active 2017 Dysphasia ; Note: Date Diagnosed : 8 9:31 AM (R47.02) Not Available [facility] 4 02:46:56 Posterior rhinorrhe a 70867926 Active 2016 Postnasal drip; Note: Date Diagnosed : 04/22/2016 1:54 PM (R09.82) Not Available [facility] 4 02:46:55 Acute pharyngit is 487283616 Active 2022 Sore throat (acute) NOS; Note: Date Diagnosed : 3 12:47 PM (J02.9) Not Available [facility] 4 02:46:56 Nasal congestio n 99921385 Active 2016 Nasal congestio n; Note: Date Diagnosed : 04/22/2016 1:54 PM (R09.81) Not Available [facility] 4 02:46:53 Allergic rhinitis 82907955 Active 2015 Other allergic rhinitis; Note: Changed from J30.9 to J30.89 ( 6 4:25 PM) , Date Diagnosed : 01/22/2016 3:54 PM (J30.9) Not Available [facility] 4 02:46:49 Nasal mucosa dry 76777798 Active 2023 QUETA MATTHEWS PA-C [address] [place] [address], [facility] [place], [address] , [facility] - [facility] 4 11:02:24 Problem Notes None recorded. Medical Equipment None Reported. Allergies No known drug allergies Medications Name Sig Start Date Stop Date Status Note LastModified by Organization Details LastModified Time Prescript ion - Prior Authoriza tion Request active Script Copy/La or Auth^Scr ipt Copy/La or Auth_12 Not Available Not Available Not Available melatonin tr 10 mg tbcr active Not Available Not Available Not Available melatonin prolonged release 10 mg tbcr active Not Available Not Available Not Available gabapenti n 600 mg tablet active Not Available Not Available Not Available doxycycli ne hyclate 100 mg capsule by mouth 08/15 completed Medicati on ID: [id number] D uration Value: 10 Prescri bed By Name: GUANAKO Fajardo nd Name: doxycycl ine hyclate Send Method: [...] 200 mg tablet active Medicati on ID: [id number] B rand Name: phenazop yridine Send Method: [...] mg tablet 12/30 completed Medicati on ID: [id number] D uration Value: 8 Brand Name: ondanset antony HCl Send Method: E-Prescr ibed Sub s Allowed: subs OK Medic ationGen ericName : ondanset antony HCl Not Available Not Available Not Available prednison e 20 mg tablet 2 tablet by mouth 12/30 completed Medicati on ID: [id number] D uration Value: 5 Prescri bed By [...] mg tablet 12/30 completed Medicati on ID: [id number] D uration Value: 2 Brand Name: butalbit [...] mg tablet 12/30 completed Medicati on ID: [id number] D uration Value: 30 Brand Name: carbamaz [...] MEALS AND AT BEDTIME FOR STOMACH PAIN/SPA SMS 03/22 completed Not Available Not Available Not [...] tablet 07/08 completed Medicati on ID: 2176 [place] son: () Brand Name: zolpidem Send Method: [...] topical cream 12/30 completed Medicati on ID: [id number] D uration Value: 23 Brand Name: doxepin [...] mg tablet 03/23 completed Medicati on ID: [id number] D uration Value: 1 Brand Name: diazepam [...] extended release 03/23 completed Medicati on ID: [id number] D uration Value: 30 Brand Name: bupropio n HCl Send Method: E-Prescr ibed Sub s Allowed: subs OK Speci al Instruct ion: TAKE 1 TABLET EVERY MORNING Medicati onGeneri cName: bupropio n HCl Not Available Not Available Not Available escitalop qasim 5 mg tablet 07/08 completed Medicati on ID: [id number] D uration Value: 30 Reason: () Brand [...] ID: [id number] [place] son: () Brand Name: [place] Send Method: E-Prescr ibed Sub s Allowed: subs OK Medic ationGen ericName : [place] Not Available Not Available Not Available Vitals Date Recorded Body height Body weight Provider Name and Address Organization Details Last Updated DateTime 2024 157.48 cm 74645.93 g Lorenza Villarreal [place] - [facility] [place] 2024 10:20:24 Social History None recorded. Functional [...] SNOMED-CT Code Diagnosis ICD10 Code Diagnosis Note [id number] TY SMITH MD [facility] [address] [address] 2024 10:14:30 2024 10:41:37 Acute sinusitis 15577057 J01.90 Nasal congestion 0024980 0 R09.81 Nasal mucosa dry 8443705 2 J34.89 Vasomotor rhinitis 30028 03 J30.0 Posterior rhinorrhea 758 10120 R09.82 Health Concerns Section Related Observation LastModified by Organization Detai ls LastModified Time None Recorded Concern Status LastModified by Organization Details LastModified Time None Recorded Payers Encounter Date Sequence Insurance Name Policy Number Policy Kuo Covered Member ID Kuo Member ID Guarantor Name 2024 1 [facility] (MEDICARE REPLACEMENT/A DVANTAGE - HMO) [employer] Jessa M Mily [id number] Jessa Minor Notes Date Note Type Note Provider Name and Address Organization Details Recorded Time 2024 text/html 69 year old sergey bell [...] has stopped her fluticasone. TY SMITH MD [address] [place] [address], [address], [facility] - [facility] 2024 16:46:20 OBGyn Episode No OBEpisode recorded.
--- OUTSIDE RECORDS SUMMARY | 2024-04-12 15:09 | XMS_ITS | Encounter Summary ---
Author Organization [facility] Address 75 [facility] 7 [place] [address] Care Team Providers Care Business Continuity Manager Name Role Phone Unavailable Primary Care Provider Unavailabl e Encounter Details Date Type Department Care Team (Latest Contact Info) Description 03/30/2019 Abstract [facility] CONVERSIONS Dental, Provider, DDS Social History Tobacco [...]
--- OUTSIDE RECORDS SUMMARY | 2024-04-12 15:09 | XMS_ITS | Patient Health Record ---
Author Organization [facility] Address [address] [place] [address] Care Team Providers Care Special Library Librarian Name Role Phone Osiris Soni MD Primary [...] ORALLY DAILY Oral for 90 Active Ipratropium [place] 0.03 % USE 2 SPRAYS EACH NOSTRILS [...] Problem Colon cancer screening (Z12.11) Active confirmed 511132251 Problem Gastro-esophage al reflux disease without esophagitis (K21.9) Active confirmed 019346642 Problem Generalized abdominal pain (R10.84) Active confirmed 927822155 Problem Other dysphagia (R13.19) Active confirmed 20826289 Problem Dysphagia (R13.10) Active confirmed Dysphagia (36157991) Problem Constipation, unspecified constipation type (K59.00) Active confirmed 64844867 Problem Gastritis (K29.70) Active confirmed Gastritis (1479893) Problem Diarrhea, unspecified type (R19.7) Active confirmed 15867186 Problem Esophageal reflux disease (K21.9) Active confirmed Gastroesophagea l reflux disease (807286023) Problem Gastric intestinal metaplasia (K31.A0) Active confirmed 59761917 VITAL SIGNS Temperature 98.0 degrees Fahrenheit 11/29/2023 Blood pressure diastolic 00 mm Hg 11/29/2023 Height 65.5 in 11/29/2023 Blood pressure systolic 000 mm Hg 11/29/2023 Weight 145 lbs 11/29/2023 BMI 23.76 kg/m2 11/29/2023 Encounters Encounter Location Date Provider Diagnosis [facility] [address] [place], [place] [id number] 01/07/2024 Alban Lopez Jr Colon cancer screening Z12.11 and Family history of colon cancer Z80.0 [facility] [address] [place] [address] 11/29/2023 Alban Lopez Jr Gastro-esophageal reflux disease [...] Insured Coverage Start Date Coverage End Date [facility] [address] [address] [place] [address] [id number] PAULETTE SERRANO Self - patient is the insured MEDICAID OF [employer] [address] [place] [address] [phone] [id number] PAULETTE SERRANO Self - patient is the insured MEDICAL (GENERAL) HISTORY Medical History History ICD Code Hypertension bipolar disorder GERD, upper endoscopy 3, gastric intestinal metaplasia at one site, 2-3 year followup diverticulitis arthritis neuropathy Colonoscopy 01/31 benign cecal polyp, te n-year followup lupus Surgical History Surgery Date(Month/Year) hysterectomy 1985
--- OUTSIDE RECORDS SUMMARY | 2024-04-12 15:10 | XMS_ITS ---
Author Organization [facility] Address [address] [place] [address] Care Team Providers Care Bulk Filler Name Role Phone Nae LILLY, Osiris Primary Care Provider Alban Gerard Jr Unavailable [phone] ALLERGIES No Known Allergies REASON FOR VISIT [...] Active methylPREDNISolone 4 MG PLEASE SEE [facility] FOR DETAILED DIRECTIONS Oral for [...] ORALLY DAILY Oral for 90 Active Ipratropium [place] 0.03 % USE 2 SPRAYS EACH NOSTRILS [...] Problem Gastric intestinal metaplasia (K31.A0) Active confirmed 14289733 VITAL SIGNS BMI 23.76 kg/m2 11/29/2023 Blood pressure systolic 000 mm Hg 11/29/19 24 Blood pressure diastolic 00 mm Hg 024 Height 65.5 in 11/29/2023 Temperature 98.0 degrees Fahrenheit 11/29/19 24 Weight 145 lbs 11/29/2023 Encounters Encounter Location Date Provider Diagnosis [facility] [address] [place] [address] 11/29/2023 Alban Lopez Jr Gastro-esophageal reflux disease [...]
--- OUTSIDE RECORDS SUMMARY | 2024-04-12 15:10 | XMS_ITS ---
Author Name Jenae Larson NP Address [address] [place] [address] Phone [phone] Organization [facility] Care Team Providers Care Skate Maker Name Role Phone Jenae Larson Unavailable [phone] Unavailable Unavailable Unavailable JohnAlban bonner Unavailable [phone] Reason for Referral Not Available Allergies, adverse [...] 7 days. 2023-02-23 No Data Available Ipratropium Flom 0.03 % Solution USE 2 SPRAYS EACH NOSTRILS 1-3 TIMES DAILY 15 MINUTES BEFORE MEALS 2023-05-06 No Data Available Diclofenac Sodium 1 % Gel 4 grams topica lly to affected area 4 times per day PRN 2023-07-09 No Data Available Loratadine 10 mg Tab TAKE 1 TABLET BY [facility] EVERY DAY 2023-07-27 No Data Available Escitalopram Oxalate 20 mg Tab No Data Available 06-10 No Data Available Triamcinolone Acetonide 0.1 % Oint No Data Available 2022-08-20 No Data Available Hydroxychloroquine Sulfate 2 00 mg Tab TAKE 1 AND 1/2 TABLETS BY MOUTH EVERY DAY 2023-08-19 No Data Available Terazosin 1 mg Cap TAKE 1 CAPSULE BY [facility] EVERYDAY AT BEDTIME 2023-12-14 No Data Available Sodium Fluoride 5000 PPM 1.1 % Crm APPLY DIRECTED TO TEETH THREE TIMES DAILY 2024-02-16 No Data Available Azithromycin 250 mg Tab TAKE 2 TABLETS B Y MOUTH TODAY, THEN TAKE 1 TABLET DAILY FOR 4 DAYS DIRECTED 2024-04-07 No Data Available Augmentin 875mg Tab 1 tablet Q12H x 10 days 2024-04-11 No Data Available Problem List Problem Status [...] Active 2023-08-30 N/A [facility] Active 2023-08-30 N/A Vaginal yeast infection Resolved 2023-02-232023 Sinus congestion Resolved 2022-10-20 2023-08-30 Pinched nerve Resolved 2023-01-05 2023-08-30 Rheumatoid arthritis with Im munodeficiency due to conditions classified elsewhere Active 2022-10-15 N/A Sinusitis Active 2024-04-11 N/A Encounters Encounters Type Facility Date of Service Diagnosis/Co mplaint No [facility] [place] Other specified disorders of nose and nasal sinuses No Data Available [facility]20[place] No Data Available [facility] No Data Available [facility] ([place] 10[place]20[place] No Data Available [facility] No Data Available [facility] No Data Available [facility] New patient,40-59min; chronic exacerbation, 2 stable chronic or 1 acute illness add add modifier 95 for video (do not use for phone, instead use [id number]) [facility]2022 Rheumatoid arthritis, unspecifiedUlcerative colitis, unspecified, without complicationsAtopic dermatitis, unspecifiedRash and other nonspecific skin eruptionEssential (primary) hypertensionBipolar II disorderGastritis, unspecified, without bleedingDorsalgia, unspecifiedRetention of urine, unspecifiedRepeated fallsGastro-esophageal reflux disease without esophagitisOld myocardial infarction New patient,40-59min; chronic exacerbation, 2 stable chronic or 1 acute illness add add modifier 95 for video (do not use for phone, instead use 64078-31) [facility] New patient,40-59min; chronic exacerbation, 2 stable chronic or 1 acute illness add add modifier 95 for video (do not use for phone, instead use 22186-83) [facility] New patient,40-59min; chronic exacerbation, 2 stable chronic or 1 acute illness add add modifier 95 for video (do not use for phone, instead use 44075-04) [facility] New patient,40-59min; chronic exacerbation, 2 stable chronic or 1 acute illness add add modifier 95 for video (do not use for phone, instead use 40618-88) [facility] New patient,40-59min; chronic exacerbation, 2 stable chronic or 1 acute illness add add modifier 95 for video (do not use for phone, instead use 04576-58) [facility] New patient,40-59min; chronic exacerbation, 2 stable chronic or 1 acute illness add add modifier 95 for video (do not use for phone, instead use 79522-85) [facility] New patient,40-59min; chronic exacerbation, 2 stable chronic or 1 acute illness add add modifier 95 for video (do not use for phone, instead use 36942-27) [facility] No Data Available [facility]2023 Mononeuropathy, unspecified No Data Available [facility]23 Essential (primary) hypertensionBipolar II disorderOld myocardial infarctionRheumatoid arthritis, unspecifiedGastritis, unspecified, without bleedingUlcerative colitis, unspecified, without complicationsDorsalgia, unspecifiedAtopic dermatitis, unspecifiedRash and other nonspecific skin eruptionRetention of urine, unspecifiedRepeated fallsGastro-esophageal reflux disease without esophagitisNasal congestionMononeuropathy, unspecified No Data Available [facility] No Data Available [facility] No Data Available [facility] No Data Available [facility] No Data Available [facility]23 No Data Available [facility] 02[place]03[place]2023 Ulcerative colitis, unspecif ied, without complicationsGastritis, unspecified, without bleedingGastro-esophageal reflux disease without esophagitisRetention of urine, unspecifiedUnspecified urinary incontinenceOveractive bladder No Data Available [facility] 02[place]2023 Acute candidiasis of vulva a nd vaginaEncntr for general adult medical exam w/o abnormal findingsEssential (primary) hypertension No Data Available [facility]20[place] No Data Available [facility] [place] No Data Available [facility] [place] No Data Available [facility] [place] No Data Available [facility] [place]23 Rheumatoid arthritis, unspec ified No Data Available [facility] [place]23 Rheumatoid arthritis, unspec ified No Data Available [facility] [place]20[place] No Data Available [facility] [place]2023 No Data Available [facility] [place]20[place] No Data Available [facility] [place]2023 Rheumatoid arthritis, unspec ified No Data Available [facility] [place]2023 No Data Available [facility] [place] Estab. patient 30-39min; chronic exacerbation, 2 stable chronic or 1 acute illness add add modifier 95 for video, (do not use for phone, instead use 33196-19) [facility] 08[place]30/2023 Essential (primary) hypertensionBipolar II disorderOld myocardial [...] (do not use for phone, instead use 84081-20) [facility] Estab. patient 30-39min; chronic exacerbation, 2 stable chronic or 1 acute illness add add modifier 95 for video, (do not use for phone, instead use 86477-03) [facility] Estab. patient 30-39min; chronic exacerbation, 2 stable chronic or 1 acute illness add add modifier 95 for video, (do not use for phone, instead use 06191-30) [facility] Estab. patient 30-39min; chronic exacerbation, 2 stable chronic or 1 acute illness add add modifier 95 for video, (do not use for phone, instead use 08973-71) [facility]20[place] Estab. patient 30-39min; chronic exacerbation, 2 stable chronic or 1 acute illness add add modifier 95 for video, (do not use for phone, instead use 98123-35) [facility]20[place] Estab. patient 30-39min; chronic exacerbation, 2 stable chronic or 1 acute illness add add modifier 95 for video, (do not use for phone, instead use 30905-96) [facility] Estab. patient 30-39min; chronic exacerbation, 2 stable chronic or 1 acute illness add add modifier 95 for video, (do not use for phone, instead use 09505-74) [facility] Estab. patient 30-39min; chronic exacerbation, 2 stable chronic or 1 acute illness add add modifier 95 for video, (do not use for phone, instead use 66995-73) [facility] Estab. patient 30-39min; chronic exacerbation, 2 stable chronic or 1 acute illness add add modifier 95 for video, (do not use for phone, instead use 99432-58) [facility]20[place] Estab. patient 10-29min; 1 minor problem; add add modifier 95 for video, modifier 93 for phone [facility]/2024 Chronic sinusitis, unspecifi ed Vital Signs Date of Collection Vitals 2022-10-20 [...] - 108.0 mm[Hg]Pain Scale - 6.0 {score} 2024-04-11 17:04:12 BP Diastolic - 72.0 mm[Hg]BP Systolic - 148.0 mm[Hg]Heart Rate - 76.0 /minBody Temperature - 36.83 Arabella Social History Sex Female History of Procedures Procedures Service Procedure code Service date Servicing provider Phone# No Data Available [id number] 2022-10-20 No Data Available No Data Available Medication List Documented (1159F) 1159F 2022-10-20 No Data Available No Data Anastacia ilable Functional Status Assessed (1170F) 1170F 2022-10-20 No Data Available No Data Avail able Pain Assessment - Pain Documented on a Pain Scale (1125F) 1125F 2022-10-20 No Data Available No Data Anastacia ilable BMI obtained (3008F) 3008F 2022-10-20 No Data Availab le No Data Available SBP 130-139 (3075F) 3075F 2022-10-20 No Data Availabl e No Data Available DBP <80 (3078F) 3078F 2022-10-20 No Data Available No Data Available New patient,40-59min; chronic exacerbation, 2 stable chronic or 1 acute illness add add modifier 95 for video (do not use for phone, instead use 06291-14) 21536 2022-10-15 No Data Available No Data Availa ble Pain Assessment - Pain Documented on a Pain Scale (1125F) 1125F 2022-10-15 No Data Available No Data Anastacia ilable Medication List Documented (1159F) 1159F 2022-10-15 No [...] No Data Avail able No Data Available 2023-01-05 No Data Available No Data Available No Data Available 2023-01-16 No Data Available No Data Available SBP 130-139 (3075F) 3075F 2023-01-16 No Data Availabl e No Data Available DBP 80-89 (3079F) 3079F 2023-01-16 No Data Available No Data Available Pain Assessment - Pain Documented on a Pain Scale (1125F) 1125F 2023-01-16 No Data Available No Data Anastacia ilable Functional Status Assessed (1170F) 1170F 2023-01-16 No Data Available No Data Avail able Medication List Documented (1159F) 1159F 2023-01-16 No Data Available No Data Anastacia ilable No Data Available [id number] 2023-02-03 No Data Available No Data Available [...] No Data A vailable No Data Available 03724 2023-06-11 No Data Available No Data Available No Data Available 40329 2023-07-09 No Data Available No Data Available Medication List Documented (1159F) 1159F 2023-07-09 No Data Available No Data Anastacia ilable SBP >= 140 3077F 2023-07-09 No Data Available No Data Available DBP <80 (3078F) 3078F 2023-07-09 No Data Available No Data Available No Data Available 22586 2023-07-13 No Data Available No Data Available Pain Assessment - Pain Documented on a Pain Scale (1125F) 1125F 2023-07-13 No Data Available No Data Anastacia ilable Medication List Documented (1159F) 1159F 2023-07-13 No Data Available No Data Anastacia ilable Estab. patient 30-39min; chronic exacerbation, 2 stable chronic or 1 acute illness add add modifier 95 for video, (do not use for phone, instead use 55721-81) 71896 2023-08-30 No Data Available No Data Availa ble Medication List Documented (1159F) 1159F 2023-08-30 No Data Available No Data Anastacia ilable Medication Review by prescribing provider or pharmacist documented (1160F) 1160F 2023-08-30 No Data Available No Data Anastacia ilable Pain Assessment - Pain Documented on a Pain Scale (1125F) 1125F 2023-08-30 No Data Available No Data Anastacia ilable BMI obtained (3008F) 3008F 2023-08-30 No Data [...] No Data Available No Data Avail able Estab. patient 10-29min; 1 minor problem; add add modifier 95 for video, modifier 93 for phone 18406 2024-04-12 No Data Available No Data Availa ble Functional Status Functional Category Effective Dates Cognition [...] you feel unsteady on your feet? No 20 05-09-16 DME used with ambulation: Cane 2023-08-14 [...] care. 2023-07-09 12:04:19 Follow up plan for [place] symptoms: 07/12/23 with RheumatologyRheumatoid arthritis 2023-07-13 13:35:59 Rheumatoid arthritis 2023-08-30 12:35:57 HypertensionMajor de pressive, Bipolar II disorderh/o Non-ST elevation (NSTEMI) myocardial infarctionRheumatoid arthritis with Immunodeficiency due to conditions classified elsewhereGastritisUC (ulcerative colitis)GERD (gastroesophageal reflux disease)Back painAtopic eczemaUrinary retentionUrinary incontinence-OAB (overactive bladder)Frequent fallsHealth maintenance examinationLupusOther problems related to medical facilities and other health care 2024-04-11 17:04:12 Follow up plan for [place] symptoms: 04/14/24Sinusitis Plan of Care Date of Service Plans [...] Follow up with Psychiatry for provider assignment10/15/22: C done in 09/2022. No interventions.1. F/u with [...] Follow up with Psychiatry for provider assignment10/15/22: C done in 09/2022. No interventions.1. F/u with [...] stool max 4 times daily #30 capsule [id number] New Dicyclomine 20 mg Tab TAKE 1 TABLET BY MOUTH AC/HS for stomach pain/spasms #60 tablet [id number] New Ondansetron 8 mg Tab Disintegrating 1 [...] sara-care- personal hygiene wipes- hand soap and buncher hand as per prior order- box of medium gloves- to follow up with case resolution specialist and PCP for further monitoring and management hx: 10/15/22: Reports urinary retention and managed with Flomax1. Dz management discussed2. Continue to follow up with PCP 2023-02-23 11:16:05 New Diflucan 150 mg Tab Take 1 tablet PO. May take 1 tablet 72 hours later if symptoms have not improved. #2 tablet RAi3Lmo Miconazole Nitrate 2 % Crm Vaginal Apply to affected area daily x 7 days. #1 applicator [id number] (patient, parent, or guardian); 11-20 minutes of medical discussion (no modifier 95)Continue to see PCP. Follow-up with Mallory as needed for any acute or disease education needs that may arise 05/10. 2023-06-11 03:10:01 Tx:Follow up plan fo r [...] to limit dietary sodium3. Weigh daily02/23/23 BP 134/808: Currently taking citalopram, bupropion, hydroxyzine. GEETA 7 [...] for and report early any s/s of jqkjgziod47/22/23- continue plan of care and conservative measures eRx New Loperamide 2 mg Cap 2 tablets after first loose stool, then take 1 tablet after each loose stool max 4 times daily #30 capsule [id number] New Dicyclomine 20 mg Tab TAKE 1 TABLET BY MOUTH AC/HS for stomach pain/spasms #60 tablet [id number] New Ondansetron 8 mg Tab Disintegrating 1 [...] sara-care- personal hygiene wipes- hand soap and buncher hand as per prior order- box of medium gloves- to follow up with case resolution specialist and PCP for further monitoring and management [...] they most likely to go back?Please call [facility] if you have a change in condition, Blood pressure > 170/90Acute illness, change in condition or medication and with any questions about your healthFall, any unusual symptoms or have any medical questions! 2024-04-11 17:04:12 Televideo 10-29min; 1 minor problem; add add modifier 95 for video, modifier 93 for phoneContinue to see PCP. Follow-up with Mallory as needed for any acute or disease education needs that may arise 05/10.04/11/24: Member c/o nose and throat have thick green mucus, left side of face is swollen, cough and chills x 5 days.Went to ER 04/07/24 and was given Azithromycin, but pharmacist told her not to take as it has interactions with hydroxychloroquine.Will start Augmentin BID. Alternate tylenol and ibuprofen PRNIncrease water intake, perform nasal saline flushes, take all medication as directed. May use cool mist vaporizer/humidifier by bed and elevate HOB when lying down.Contact CB if no improvement or symptoms become worse.Has appt with ENT 04/18/24F/U with COURTNEY 04/14/23 Goals Date Goal 2022-10-20 do a NS [...] if no improvement Health Concerns Date Concern 2024-04-12 Visit completed via audio by telephone. Patient/Guardian agreed to visit via telehealth.Time spent in visit: 11:16 minutes 2024-04-12 Today, patient has c shaheedef complaint of: sinus concernsSummary of acute complaint: sinus infx in February, given ABX. sinus infection is now back and worse. went to ED Wednesday they diagnosed her with virus, prescribed ABX-Z Pack, at pharmacy the pharmacist told her to talk to Preschool Head Teacher before taking z pack. nose and throat have very thick green mucus, left side of face is swollen. called ENT and PCP and they have not returned call yet- no follow up with PCP scheduled yet. seeing ENT on apr 18. has a bad headache. feels like her chest is hollow when she coughs, unable to expectorate phlegm from chest. denies fever but has chills. no vomiting or diarrhea, but having nausea. Applicable vital signs: BP 148/72HR [id number] 98.3# hours/days of symptoms: 04/06/24Medications/interventions member has tried for symptoms / result of interventions: not taking OTC. taking hydroxychloroquine for lupus- afraid to take anything else OTC. RN interventions/care plan: keep using neti pot, salt water gargles, hot showers. member is eating a lot of soup and drinking fluids, RN encouraged her to continue. ask COURTNEY about Mucinex. take tylenol for headache with a little caffeine 2024-04-12 Most recent hospital stay(s) or ER visit(s) and precipitating factors: ER- 04/07/24 - sinus concerns
--- OUTSIDE RECORDS SUMMARY | 2024-04-12 15:10 | XMS_ITS | Clinical Summary ---
Author Organization [employer] [facility] it Address [address] [place] [address] Care Team Providers Care Artificial Fly Tier Name Role Phone Osiris Soni MD Primary [...] age to complete this topic Care Teams Artificial Fly Tier Relationship Specialty Start Date End Date Osiris Soni MD [address] [place] [address] PCP - General Internal Medicine 06/06/11
== END 2024-04-12 14:51 | disposition home or self-care (01) ==
PROVIDERS: PCP Internal Medicine; Visit Provider Internal Medicine
DX: J01.90 Acute sinusitis, unspecified (principal)

== ENCOUNTER → 2024-04-12 13:01 | Outpatient (BNVA) | payer OTHER, SELFPAY | PROVIDERS: PCP Internal Medicine; Visit Provider Internal Medicine | DX: J01.90 Acute sinusitis, unspecified (principal) | CPT/HCPCS: 99212 ==

== ENCOUNTER 2024-05-03 15:13 | Outpatient (AMB) | payer OTHER, SELFPAY ==
--- OUTSIDE RECORDS SUMMARY | 2024-05-03 15:16 | XMS_ITS ---
Author Organization [facility] Address [address] [place] [address] Care Team Providers Care Lead Informatica Developer Name Role Phone Nae LILLY, Osiris Primary Care Provider Palua Lopez Jr, lAban Larsen REASON FOR VISIT labs Encounters Encounter Location Date Provider Diagnosis [facility] [address] [place] [address] 11/27/2022 Alban Lopez Jr PLAN OF TREATMENT No Information
--- OUTSIDE RECORDS SUMMARY | 2024-05-03 15:16 | XMS_ITS | Clinical Summary ---
Author Organization [employer] [facility] it Address [address] [place] [address] Care Team Providers Care Care Analyst Name Role Phone Osiris Soni MD Primary [...] drink = 0.6 oz pur e alcohol) Comments Unknown Sex and Gender Information Value Date Recorded Sex Assigned at Not on file Legal Sex Female 4:33 PM EST Gender Identity Not on file Sexual Orientation Not on file Obstetrics History Plan of Treatment Health Maintenance Due Date Last Done Comments Breast Cancer Screening 1955 DTaP,Tdap,and Td Vaccines (1 - Tdap) 1973 Pneumococcal Vaccine: 50+ Ye ars (1 of 1 - PCV) 2004 Zoster Vaccines (1 of 2) 2004 Cholesterol Screening (Lipid Panel) 02/25/2022 Colorectal Cancer [...] patient's age to complete this topic Meningococcal B Vacine Aged Out No lo nger eligible based on patient's age to complete this topic RSV Immunization Patients Un sadia 20 months Aged Out No longer eligible b ased on patient's age to complete this topic Varicella Vaccines Aged Out No longer eligible based on patient's age to complete this topic Care Teams Care Analyst Relationship Specialty Start Date End Date Osiris Soni MD [address] [place] [address] PCP - General Internal Medicine 06/06/11
--- OUTSIDE RECORDS SUMMARY | 2024-05-03 15:16 | XMS_ITS ---
Author Organization [facility] Address [address] [place] [address] Care Team Providers Care Blister Rust Eradicator Name Role Phone Nae LILLY, Oisris Primary Care Provider Alban Gerard Jr Unavailable [phone] ALLERGIES No Known Allergies REASON FOR [...] Active methylPREDNISolone 4 MG PLEASE SEE [facility] FOR DETAILED DIRECTIONS Oral for 28 Active [...] ORALLY DAILY Oral for 90 Active Ipratropium [place] 0.03 % USE 2 SPRAYS EACH NOSTRILS [...] Problem Gastric intestinal metaplasia (K31.A0) Active confirmed 32006820 VITAL SIGNS BMI 23.76 kg/m2 11/29/2023 Blood pressure systolic 000 mm Hg 11/29/19 24 Blood pressure diastolic 00 mm Hg 024 Height 65.5 in 11/29/2023 Temperature 98.0 degrees Fahrenheit 11/29/19 24 Weight 145 lbs 11/29/2023 Encounters Encounter Location Date Provider Diagnosis [facility] [address] [place] [id number] 11/29/2023 Alban Lopez Jr Gastro-esophageal reflux disease [...]
--- OUTSIDE RECORDS SUMMARY | 2024-05-03 15:16 | XMS_ITS | Data Portability ---
Author Organization [place] - [facility], Allergy Address [address] [address] Care Team Providers Care Oracle Wms Consultant Name Role Phone PENELOPE CORNELIUS Primary Care [...] if still symptomatic. Not available 2024 10:59:19 04/26/2024 04/26/2024 69yo female with post nasal drip and gustatory rhinorrhea presents for evaluation of the nose. She reports continued maxillary facial pain, clear anterior rhinorrhea, postnasal drip, increased phlegm production, and night time head aches. Exam demonstrates 2+ inferior turbinate hypertrophy bilaterally. Nasal endoscopy was without nasal obstruction or purulence. We discussed that her symptoms and history are consistent with allergic rhinitis. As she has reported clinical improvement with intranasal Azelastine in the past, I recommend restarting this medication. She will continue daily saline irrigations and Claritin. 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 All questions answered. [email or web address] Not available 04/26/2024 16:45:50 Plan of Treatment Reminders Order Date Submit Date Provider Last Modified By Organization Details Last Modified Time Details Appointments Allergy Test 2024 01:00P M [facility] Not available Not available Not available Establish ed 15 2024 03:45P M ANGELIKA RODRÍGUEZ PA-C Not available Not available Not available Lab None recorded. Referral None recorded. Procedures allergy testing, skin prick (PROC) 2024 025 [email or web address] Not available 04/27/2024 13:22:42 intraderm al allergy skin testing (PROC) 2024 025 hlorinser Not available 04/27/2024 13:22:42 pulmonary function test procedure (PROC) 2024 025 hlorinser Not available 04/27/2024 13:22:42 pulse oximetry (PROC) 2024 025 [email or web address] Not available 04/27/2024 13:22:42 Surgeries None recorded. Imaging None recorded. Medication Orders azelastin e 137 mcg (0.1 %) nasal spray 2024 025 [facility], [address], [place], [place], [id number], 04/26/2024 16:45:06 azelastin e 137 mcg (0.1 %) nasal spray 2023 024 [facility], [address], [place], [place], [id number], 09/21/2023 10:31:40 Patient TargetsNo targets recorded. Patient Instructions Encounter Date Encounter Id Patient Instructions Last Modified By Organization Details Last Modified Time 09/21/2023 [id number] Vasomotor rhinitis only slightly improved with Atrovent. [...] Abnormal Flag Note LastModifiedBy Organization Detail LastModifiedTime 11/03/19 24 07/27/2018 imagi ng/di agnos tic resul t No [...] Recorded Time Bilateral temporoma ndibular joint pain 31456827060 979808 Active 2018 Arthralgi a of bilateral temporoma ndibular joint; Note: Date Diagnosed : 07/27/2018 1:25 PM (M26.623) Not Available [facility] 4 02:46:53 Headache 18607988 Active 2018 Headache, unspecifi ed; Note: Changed from R51 to R51.9 ( 1 3:43 PM) , Date Diagnosed : 04/08/2018 12:10 PM (R51) Not Available [facility] 4 02:46:52 Pain of right temporoma ndibular joint 98232892086 297614 Active 2016 Arthralgi a of right temporoma ndibular joint; Note: Date Diagnosed : 04/22/2016 1:59 PM (M26.621) Not Available [facility] 4 02:46:53 Sensorine ural hearing loss of bilateral ears 864229433 Active 2020 Sensorine ural hearing loss, bilateral ; Note: Date Diagnosed : 1 12:18 PM (H90.3) Not Available [facility] 4 02:46:50 Migraine 21030454 Active 2017 Other migraine, not intractab le, without status migrainos us; Note: Date Diagnosed : 03/25/2017 12:19 PM (G43.809) Not Available [facility] 4 02:46:55 Acute sinusitis 14001952 Active 2020 Other acute sinusitis ; Note: Date Diagnosed : 08/15/2020 1:41 PM (J01.80) Not Available [facility] 4 02:46:57 Gastroeso phageal reflux disease without esophagit is 225736274 Active 2017 Gastro-es ophageal reflux disease without esophagit is; Note: Date Diagnosed : 8 9:31 AM (K21.9) Not Available [facility] 4 02:46:51 Dizziness and giddiness 884905462 Active 2017 Dizziness and giddiness ; Note: Date Diagnosed : 03/25/2017 11:43 AM (R42) Not Available [facility] 4 02:46:55 Vasomotor rhinitis 6066888 Active 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; Note: Date Diagnosed : 03/25/2017 11:50 AM (J30.0) Not Available [facility] 4 02:46:50 Tinnitus of left ear 20214034032 06 Active 2017 Tinnitus, left ear; Note: Date Diagnosed : 03/25/2017 11:55 AM (H93.12) Not Available [facility] 4 02:46:57 Chronic rhinitis 84588276 Active 2013 Chronic pharyngit is and nasophary ngitis: Chronic rhinitis; CMS Risk: low risk CMS Treatment : new problem (to examiner) : no additiona l workup planned N ote: Date Diagnosed : 12/19/2013 12:00 PM (472.0) Not Available [facility] 4 02:46:56 Follow-up visit Active 2016 Encounter for follow-up examinati on after completed treatment for condition s other than malignant neoplasm; Note: Date Diagnosed : 7 4:29 PM (Z09) Not Available [facility] 4 02:46:56 Dysphasia 77826070 Active 2017 Dysphasia ; Note: Date Diagnosed : 8 9:31 AM (R47.02) Not Available [facility] 4 02:46:56 Posterior rhinorrhe a 17948508 Active 2016 Postnasal drip; Note: Date Diagnosed : 04/22/2016 1:54 PM (R09.82) Not Available [facility] 4 02:46:55 Acute pharyngit is 520263965 Active 2022 Sore throat (acute) NOS; Note: Date Diagnosed : 3 12:47 PM (J02.9) Not Available [facility] 4 02:46:56 Nasal congestio n 95837646 Active 2016 Nasal congestio n; Note: Date Diagnosed : 04/22/2016 1:54 PM (R09.81) Not Available [facility] 4 02:46:53 Allergic rhinitis 06715830 Active 2015 Other allergic rhinitis; Note: Changed from J30.9 to J30.89 ( 6 4:25 PM) , Date Diagnosed : 01/22/2016 3:54 PM (J30.9) Not Available [facility] 4 02:46:49 Nasal mucosa dry 66008151 Active 2023 QUETA MATTHEWS PA-C [address], [facility] [place], [address] , [place] - [facility] 4 11:02:24 Anterior rhinorrhe a 532587011 Active 2024 ANGELIKA RODRÍGUEZ PA-C [address], [facility] [place], [address] , [place] - [facility] 5 16:32:07 Atypical facial pain 39344274 Active 2024 ANGELIKA RODRÍGUEZ PA-C [address], [facility] [place], [address] , [place] - [facility] 5 16:43:52 Non-aller gic rhinitis 34821177279 1 Active 2024 ANGELIKA RODRÍGUEZ PA-C [address], [facility] [place], [address] , [place] - [facility] 5 16:44:24 Seasonal allergic rhinitis 727148058 Active 2024 ANGELIKA RODRÍGUEZ PA-C [address], [facility] [place], [address] , [place] - [facility] 5 16:44:24 Problem Notes None recorded. Procedures Surgical History Date Name Laterality Status Provider Name and Address Organization Details Recorded Time Nasal Endoscopy completed ANGELIKA RODRÍGUEZ PA-C [address], [place], [address], [place] - [facility] 04/26/2024 16:39:27 Imaging Results Imaging Date Name Status LastModified by [facility] Details LastModified Time 07/27/2018 imaging/diag nostic result [...] by mouth 08/15 completed Medicati on ID: [id number] D uration Value: 10 Prescri bed By [...] completed Not Available Not Available Not Available azithromy mignon 250 mg tablet TAKE 2 TABLETS BY MOUTH TODAY, THEN TAKE 1 TABLET DAILY FOR 4 DAYS DIRECTED active Not Available Not Available No t Available tizanidin e 4 mg tablet TAKE 1 TABLET ORALLY 3 TIMES PER DAY NEEDED active Not Available Not Available No t Available fluconazo le 150 mg tablet TAKE 1 TABLET BY MOUTH MAY TAKE 1 TABLET 72 HOURS LATER IF SYMPTOMS HAVE NOT IMPROVED . 03/23 completed Not Available Not Available Not Available phenazopy ridine 200 mg tablet active Medicati on ID: [id number] B rand Name: phenazop yridine Send Method: E-Prescr ibed Sub s Allowed: subs OK Medic ationGen ericName : phenazop yridine Not Available Not Available Not Available sumatript an 25 mg tablet 12/30 completed Medicati on ID: [id number] Bra nd Name: yuli hubbard succinat e Send Method: E-Prescr ibed Sub s Allowed: subs OK Medic ationGen ericName : yuli hubbard succinat e Not Available Not Available Not Available metronida zole 0.75 % (37.5 mg/5 gram) vaginal gel INSERT 1 APPLIATO RFUL VAGINALL Y ONCE DAILY FOR 5 DAYS active Not Available Not Available No t Available ondansetr on HCl 4 mg tablet 12/30 completed Medicati on ID: [id number] D uration Value: 8 Brand Name: ondanset antony HCl Send Method: E-Prescr ibed Sub s Allowed: subs OK Medic ationGen ericName : ondanset antony HCl Not Available Not Available Not Available prednison e 20 mg tablet 2 tablet by mouth 12/30 completed Medicati on ID: [id number] D uration Value: 5 Prescri bed By [...] mg tablet 12/30 completed Medicati on ID: [id number] D uration Value: 2 Brand Name: butalbit [...] mg tablet 12/30 completed Medicati on ID: [id number] D uration Value: 30 Brand Name: carbamaz [...] capsule 01/05 completed Medicati on ID: [id number] [place] son: () Brand Name: gabapent in Send Method: E-Prescr ibed Sub s Allowed: subs OK Medic ationGen ericName : gabapent in Not Available Not Available Not Available omeprazol e 20 mg capsule,d elayed release TAKE 1 CAPSULE BY MOUTH EVERY DAY NEEDED ACID REFLUX active Not Available Not Available No t Available lisinopri l 5 mg tablet 07/08 completed Medicati on ID: 2168 [place] son: () Brand Name: lisinopr il Send Method: E-Prescr ibed Sub s Allowed: subs OK Medic ationGen ericName : lisinopr il Not Available Not Available Not Available zolpidem 5 mg tablet active Not Available Not Available Not Available azelastin e 137 mcg (0.1 %) nasal spray Use 2 sprays into each nostril twice daily for runny nose 2024 active Not Available Not Available Not Avai lable hydroxych loroquine 200 mg tablet TAKE 1 [...] tablet 07/08 completed Medicati on ID: 2176 [place] son: () Brand Name: zolpidem Send Method: [...] topical cream 12/30 completed Medicati on ID: [id number] D uration Value: 23 Brand Name: doxepin [...] mg tablet 03/23 completed Medicati on ID: [id number] D uration Value: 1 Brand Name: diazepam Send Method: E-Prescr ibed Sub s Allowed: subs OK Medic ationGen ericName : diazepam Not Available Not Available Not Available amoxicill in 875 mg-potass ium clavulana te 125 mg tablet TAKE 1 TABLET BY MOUTH EVERY 12 HOURS FOR 10 DAYS active Not Available Not Available No t Available escitalop qasim 10 mg tablet 03/23 completed Not Available Not Available Not Available escitalop qasim 20 mg tablet active Not Available Not Available Not Available bupropion HCl XL 150 mg 24 hr tablet, extended release 03/23 completed Medicati on ID: [id number] D uration Value: 30 Brand Name: bupropio n HCl Send Method: E-Prescr ibed Sub s Allowed: subs OK Speci al Instruct ion: TAKE 1 TABLET EVERY MORNING Medicati onGeneri cName: bupropio n HCl Not Available Not Available Not Available escitalop qasim 5 mg tablet 07/08 completed Medicati on ID: [id number] D uration Value: 30 Reason: () Brand [...] release 07/08 completed Medicati on ID: 2169 [place] son: () Brand Name: omeprazo le magnesiu m Send Method: E-Prescr ibed Sub s Allowed: subs OK Medic ationGen ericName : omeprazo le magnesiu m Not Available Not Available Not Available Vitals Date Recorded Body height Body mass index (BMI) Body weight Provider Name and Address Organization Details Last Updated DateTime 09/21/2023 157.48 cm 25.6 kg/m2 59198.93 g Lorenza Villarreal [place] - [facility] 09/21/2023 10:22:52 Date Recorded Body height Body weight Provider Name and Address Organization Details Last Updated DateTime 2024 157.48 cm 62628.93 g Lorenza Villarreal [place] [facility] 2024 10:20:24 Date Recorded Body height Body mass index (BMI) Body weight Provider Name and Address Organization Details Last Updated DateTime 04/26/2024 157.48 cm 25.6 kg/m2 [address]26[address] [facility] 04/26/2024 16:06:43 Social History None recorded. Functional Status None recorded. Mental Status None recorded. Family History Nothing Reported. Medical History Condition Response Allergies/Hayfever Y Heart Problems N Anxiety Y Tonsil Infections N Emphysema N Migraines N Thyroid Problems N Glaucoma Y Depression Y COPD N Developmental Delay N Nasal or Sinus Problems Y Anemia N Immune System Disorder N Anesthesia Complications N Heart Attack ([place]) Y Other Skin Condition Y Diabetes N [...] Note [id number] MARLA GARCIA MD [facility] [address] [address] 09/21/2023 10:18:14 09/21/2023 10:37:56 Vasomotor rhinitis 3575500 J30.0 Nasal mucosa dry 3325327 2 J34.89 [id number] TY SMITH MD [facility] [address] [place] [address] 2024 10:14:30 2024 10:41:37 Acute sinusitis 89349798 J01.90 Nasal congestion 1269178 0 R09.81 Nasal mucosa dry 1113198 2 J34.89 Vasomotor rhinitis 26034 03 J30.0 Posterior rhinorrhea 758 07592 R09.82 [id number] TY SMITH MD [facility] [address] [address] 04/26/2024 16:01:00 04/26/2024 16:33:24 Posterior rhinorrhea 26606604 R09.82 Anterior rhinorrhea 2772 79409 J34.89 Allergic rhinitis 128447 04 J30.9 Headache 08540971 R51.9 Health Concerns Section Related Observation LastModified by Organization Detai ls LastModified Time None Recorded Concern Status LastModified by Organization Details LastModified Time None Recorded Advance Directives Directive None Recorded Payers Encounter Date Sequence Insurance Name Policy Number Policy Kuo Covered Member ID Kuo Member ID Guarantor Name 09/21/[address] [facility] (MEDICARE REPLACEMENT/ ADVANTAGE - HMO) [facility] [facility] [id number] Jessa M Mily 09/21/2023 2 [place] [facility] Jessa Nam Mily [id number] Jessa Nam Mily [address] [facility] (MEDICARE REPLACEMENT/ ADVANTAGE - HMO) [facility] Jessa Mily [id number] Jessa Nam Mily 04/26/[address] [facility] (MEDICARE REPLACEMENT/ ADVANTAGE - HMO) [facility] Jessa Mily [id number] Jessa M Mily Notes Date Note Type Note Provider Name [...] sinus distribution, and hyposmia. MARLA MOYER MD [address] [place] [address], [address], [facility] - [facility] 09/21/2023 11:31:24 2024 text/html 69 year [...] stopped her fluticasone. TY SMITH MD 100 [facility] 100, [place], [address], [facility] - [facility] 2024 16:46:20 04/26/2024 text/html 69yo female with PND and gustatory rhinorrhea presents for evaluation of the nose. She reports sinus facial pain for 6 months that did not improve with antibiotics, most recently Augmentin 02/28/2024. She also endorses clear nasal drainage, postnasal drip, increased phlegm production, and night time head aches. She uses daily saline irrigations, saline spray, and Claritin with minimal improvement. Most recent formal skin allergy testing in 2020 with moderate sensitivities to trees and mold. She has lupus and is closely followed by [place] rheumatology. TY SMITH MD 100 [facility] 100, [place], [address], [facility] - [facility] 04/26/2024 17:40:05 OBGyn Episode No OBEpisode recorded.
--- OUTSIDE RECORDS SUMMARY | 2024-05-03 15:16 | XMS_ITS | Patient Health Record ---
Author Organization [facility] Address [address] [place] [address] Care Team Providers Care Night Club Manager Name Role Phone Osiris Soni MD Primary Care Provider Alban Gerard Jr Unavailable [phone] ALLERGIES No Known Allergies REASON FOR REFERRAL [...] ORALLY DAILY Oral for 90 Active Ipratropium [place] 0.03 % USE 2 SPRAYS EACH NOSTRILS [...] Problem Colon cancer screening (Z12.11) Active confirmed 317637266 Problem Gastro-esophage al reflux disease without esophagitis (K21.9) Active confirmed 133001916 Problem Generalized abdominal pain (R10.84) Active confirmed 856939324 Problem Other dysphagia (R13.19) Active confirmed 90820397 Problem Dysphagia (R13.10) Active confirmed Dysphagia (73126325) Problem Constipation, unspecified constipation type (K59.00) Active confirmed 81772582 Problem Gastritis (K29.70) Active confirmed Gastritis (0739403) Problem Diarrhea, unspecified type (R19.7) Active confirmed 86934909 Problem Esophageal reflux disease (K21.9) Active confirmed Gastroesophagea l reflux disease (771051639) Problem Gastric intestinal metaplasia (K31.A0) Active confirmed 51881057 VITAL SIGNS Temperature 98.0 degrees Fahrenheit 11/29/2023 Blood pressure diastolic 00 mm Hg 11/29/2023 Height 65.5 in 11/29/2023 Blood pressure systolic 000 mm Hg 11/29/2023 Weight 145 lbs 11/29/2023 BMI 23.76 kg/m2 11/29/2023 Encounters Encounter Location Date Provider Diagnosis [facility] [place] [facility] [address] [place], [place] [phone] 01/07/2024 Alban Lopez Jr Colon cancer screening Z12.11 and Family history of colon cancer Z80.0 [facility] [address] [place] [address] 11/29/2023 Alban Lopez Jr Gastro-esophageal reflux disease [...] Insured Coverage Start Date Coverage End Date [facility] [address] [address] [place] [phone] [id number] PAULETTE SERRANO Self - patient is the insured MEDICAID OF [employer] [address] [place] [address] [phone] [id number] PAULETTE SERRANO Self - patient is the insured MEDICAL (GENERAL) HISTORY Medical History History ICD Code Hypertension bipolar disorder GERD, upper endoscopy 3, gastric intestinal metaplasia at one site, 2-3 year followup diverticulitis arthritis neuropathy Colonoscopy 01/31 benign cecal polyp, te n-year followup lupus Surgical History Surgery Date(Month/Year) hysterectomy 1985
--- OUTSIDE RECORDS SUMMARY | 2024-05-03 15:17 | XMS_ITS ---
Author Organization [facility] Address [address] [place] [address] Care Team Providers Care Armament Installer Name Role Phone Nae LILLY, Osiris Primary Care Provider Alban Gerard Jr [phone] REASON FOR VISIT screening Encounters Encounter Location Date Provider Diagnosis [facility] [place] [address] [place] [id number] 01/07/2024 Alban Lopez Jr Colon cancer screening Z12.11 and Family history of colon cancer Z80.0 ASSESSMENTS Encounter Date Diagnosis Assessment Notes Treatment Notes Treatment Clinical Notes 01/07/2024 Colon cancer screening (ICD-10 - Z12.11) 01/07/2024 Family history of colon cancer (ICD-10 - Z80.0) PLAN OF TREATMENT No Information
--- OUTSIDE RECORDS SUMMARY | 2024-05-03 15:17 | XMS_ITS ---
Author Name Jenae Larson NP Address [address] [place] [address] Phone [phone] Organization [facility] Care Team Providers Care Service Writer Advisor Name Role Phone Jenae Larson Unavailable [phone] Unavailable Unavailable Unavailable JohnAlban bonner Unavailable [phone] Reason for Referral Not Available Allergies, adverse [...] 7 days. 2023-02-23 No Data Available Ipratropium [place]cess[place] 0.03 % Solution USE 2 SPRAYS EACH NOSTRILS 1-3 TIMES DAILY 15 MINUTES BEFORE MEALS 2023-05-06 No Data Available Diclofenac Sodium 1 % Gel 4 grams topica lly to affected area 4 times per day PRN 2023-07-09 No Data Available Loratadine 10 mg Tab TAKE 1 TABLET BY [facility] EVERY DAY 2023-07-27 No Data Available Escitalopram Oxalate 20 mg Tab No Data Available 06-10 No Data Available Triamcinolone Acetonide 0.1 % Oint No Data Available 2022-08-20 No Data Available Hydroxychloroquine Sulfate 2 00 mg Tab TAKE 1 AND 1/2 TABLETS BY MOUTH EVERY DAY 2023-08-19 No Data Available Terazosin 1 mg Cap TAKE 1 CAPSULE BY [facility] EVERYDAY AT BEDTIME 2023-12-14 No Data [...] Active 2023-08-30 N/A [facility] Active 2023-08-30 N/A Vaginal yeast infection Resolved 2023-02-232023 Sinus congestion Resolved 2022-10-20 2023-08-30 Pinched nerve Resolved 2023-01-05 2023-08-30 Rheumatoid arthritis with Im munodeficiency due to conditions classified elsewhere Active 2022-10-15 N/A Sinusitis Active 2024-04-11 N/A Encounters Encounters Type Facility Date of Service Diagnosis/Co mplaint No [facility] [place] [facility] Other specified disorders of nose and nasal sinuses No Data Available [facility]20[place] No Data Available [facility] No Data Available [facility] ([place]20[place] No Data Available [facility] No Data Available [facility] No Data Available [facility] New patient,40-59min; chronic exacerbation, 2 stable chronic or 1 acute illness add add modifier 95 for video (do not use for phone, instead use [id number]) [facility]20[place] Rheumatoid arthritis, unspecifiedUlcerative colitis, unspecified, without complicationsAtopic dermatitis, unspecifiedRash and other nonspecific skin eruptionEssential (primary) hypertensionBipolar II disorderGastritis, unspecified, without bleedingDorsalgia, unspecifiedRetention of urine, unspecifiedRepeated fallsGastro-esophageal reflux disease without esophagitisOld myocardial infarction New patient,40-59min; chronic exacerbation, 2 stable chronic or 1 acute illness add add modifier 95 for video (do not use for phone, instead use 49200-96) [facility] New patient,40-59min; chronic exacerbation, 2 stable chronic or 1 acute illness add add modifier 95 for video (do not use for phone, instead use 21567-92) [facility] New patient,40-59min; chronic exacerbation, 2 stable chronic or 1 acute illness add add modifier 95 for video (do not use for phone, instead use 91240-16) [facility] New patient,40-59min; chronic exacerbation, 2 stable chronic or 1 acute illness add add modifier 95 for video (do not use for phone, instead use 54012-02) [facility] New patient,40-59min; chronic exacerbation, 2 stable chronic or 1 acute illness add add modifier 95 for video (do not use for phone, instead use 39538-46) [facility] New patient,40-59min; chronic exacerbation, 2 stable chronic or 1 acute illness add add modifier 95 for video (do not use for phone, instead use 66594-08) [facility] New patient,40-59min; chronic exacerbation, 2 stable chronic or 1 acute illness add add modifier 95 for video (do not use for phone, instead use 02651-02) [facility] No Data Available [facility]2023 Mononeuropathy, unspecified No Data Available [facility] Essential (primary) hypertensionBipolar II disorderOld myocardial infarctionRheumatoid arthritis, unspecifiedGastritis, unspecified, without bleedingUlcerative colitis, unspecified, without complicationsDorsalgia, unspecifiedAtopic dermatitis, unspecifiedRash and other nonspecific skin eruptionRetention of urine, unspecifiedRepeated fallsGastro-esophageal reflux disease without esophagitisNasal congestionMononeuropathy, unspecified No Data Available [facility] No Data Available [facility] No Data Available [facility] No Data Available [facility] No Data Available [facility] No Data Available [facility] 02[place]2023 Ulcerative colitis, unspecif ied, without complicationsGastritis, unspecified, without bleedingGastro-esophageal reflux disease without esophagitisRetention of urine, unspecifiedUnspecified urinary incontinenceOveractive bladder No Data Available [facility] 02[place]2023 Acute candidiasis of vulva a nd vaginaEncntr for general adult medical exam w/o abnormal findingsEssential (primary) hypertension No Data Available [facility] 02/[place]2023 No Data Available [facility] [place]20[place] No Data Available [facility] [place]2023 No Data Available [facility] [place] 02[place]2023 No Data Available [facility] [place] 06[place]2023 Rheumatoid arthritis, unspec ified No Data Available [facility] [place] 07[place]2023 Rheumatoid arthritis, unspec ified No Data Available [facility] [place] 07[place]09[place]2023 No Data Available [facility] [place]/09[place]2023 No Data Available [facility] [place] 07[place]2023 No Data Available [facility] [place]13[place]2023 Rheumatoid arthritis, unspec ified No Data Available [facility] [place] 07[place]13[place]2023 No Data Available [facility] [place]13[place]2023 Estab. patient 30-39min; chronic exacerbation, 2 stable chronic or 1 acute illness add add modifier 95 for video, (do not use for phone, instead use 72767-14) [facility]2023 Essential (primary) hypertensionBipolar II disorderOld [...] (do not use for phone, instead use 96630-35) [facility] Estab. patient 30-39min; chronic exacerbation, 2 stable chronic or 1 acute illness add add modifier 95 for video, (do not use for phone, instead use 44167-91) [facility] Estab. patient 30-39min; chronic exacerbation, 2 stable chronic or 1 acute illness add add modifier 95 for video, (do not use for phone, instead use 92167-93) [facility]20[place] Estab. patient 30-39min; chronic exacerbation, 2 stable chronic or 1 acute illness add add modifier 95 for video, (do not use for phone, instead use 61558-31) [facility]20[place] Estab. patient 30-39min; chronic exacerbation, 2 stable chronic or 1 acute illness add add modifier 95 for video, (do not use for phone, instead use 82517-73) [facility] Estab. patient 30-39min; chronic exacerbation, 2 stable chronic or 1 acute illness add add modifier 95 for video, (do not use for phone, instead use 58393-99) [facility] Estab. patient 30-39min; chronic exacerbation, 2 stable chronic or 1 acute illness add add modifier 95 for video, (do not use for phone, instead use 59306-08) [facility] Estab. patient 30-39min; chronic exacerbation, 2 stable chronic or 1 acute illness add add modifier 95 for video, (do not use for phone, instead use 05171-50) [facility] Estab. patient 30-39min; chronic exacerbation, 2 stable chronic or 1 acute illness add add modifier 95 for video, (do not use for phone, instead use 21299-89) [facility] Estab. patient 10-29min; 1 minor problem; add add modifier 95 for video, modifier 93 for phone [facility]/2024 Chronic sinusitis, unspecifi ed Estab. patient 10-29min; 1 minor problem; add add modifier 95 for video, modifier 93 for phone [facility]20[place] Estab. patient 10-29min; 1 minor problem; add add modifier 95 for video, modifier 93 for phone [facility]/20[place] Estab. patient 10-29min; 1 minor problem; add add modifier 95 for video, modifier 93 for phone [facility]20[place] Estab. patient 10-29min; 1 minor problem; add add modifier 95 for video, modifier 93 for phone [facility]/2024 Essential (primary) hypertensionBipolar II disorderOld myocardial infarctionRheumatoid arthritis, unspecifiedImmunodeficiency due to conditions classified elsewhereGastritis, unspecified, without bleedingUlcerative colitis, unspecified, without complicationsGastro-esophageal reflux disease without esophagitisDorsalgia, unspecifiedAtopic dermatitis, unspecifiedRash and other nonspecific skin eruption Vital Signs Date of Collection Vitals 2022-10-20 [...] - 76.0 /minBody Temperature - 36.83 Arabella 2024-04-14 09:27:19 Weight - 65.77 kgBod y Mass Index (BMI) - 28.32 kg/m2BP Diastolic - 72.0 mm[Hg]BP Systolic - 145.0 mm[Hg]Heart Rate - 81.0 /minPain Scale - 3.0 {score} Social History Sex Female History of Procedures Procedures Service Procedure code Service date Servicing provider Phone# No Data Available [id number] 2022-10-20 No Data Available No Data Available [...] (do not use for phone, instead use 35899-01) [id number] 2022-10-15 No Data Available No Data Availa [...] No Data Avail able No Data Available [id number] 2023-01-05 No Data Available No Data Available [...] No Data Anastacia ilable No Data Available [id number] 2023-02-03 No Data Available No Data Available [...] (do not use for phone, instead use 75309-07) [id number] 2023-08-30 No Data Available No Data Availa [...] 95 for video, modifier 93 for phone [id number] 2024-04-12 No Data Available No Data Availa ble No Data Available [id number] 2024-04-12 No Data Available No Data Available SBP >= 140 3077F 2024-04-12 No Data Available No Data Available DBP <80 (3078F) 3078F 2024-04-12 No Data Available No Data Available Estab. patient 10-29min; 1 minor problem; add add modifier 95 for video, modifier 93 for phone [id number] 2024-04-14 No Data Available No Data Availa ble [...] care 2024-04-11 17:04:12 Follow up plan for a cute symptoms: 04/14/24Sinusitis 2024-04-14 09:27:19 Other problems relat ed to medical facilities and other health careHypertensionMajor depressive, Bipolar II disorderh/o Non-ST elevation (NSTEMI) myocardial infarctionRheumatoid arthritis with Immunodeficiency due to conditions classified elsewhereGastritisUC (ulcerative colitis)GERD (gastroesophageal reflux disease)Back painAtopic eczemaUrinary retentionUrinary incontinence-OAB (overactive bladder)Frequent fallsHealth maintenance examinationLupusOther problems related to medical facilities and other health careSinusitis Plan of Care Date of Service Plans [...] with PCP next month10/15/22-Receives steroid/epidural injections. Taking Ytshawn 600 TID1. 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 Dz management discussed2. Continue to follow up with PCP 2023-02-23 11:16:05 New Diflucan 150 mg Tab Take 1 tablet PO. May take 1 tablet 72 hours later if symptoms have not improved. #2 tablet [id number] Miconazole Nitrate 2 % Crm Vaginal Apply to affected area daily x 7 days. #1 applicator [id number] (patient, parent, or guardian); 11-20 minutes of [...] for and report early any s/s of jyfmokesm70/22/23- continue plan of care and conservative measures eRx New Loperamide 2 mg Cap 2 tablets after first loose stool, then take 1 tablet after each loose stool max 4 times daily #30 capsule [id number] New Dicyclomine 20 mg Tab TAKE 1 TABLET BY MOUTH AC/HS for stomach pain/spasms #60 tablet [id number] New Ondansetron 8 mg Tab Disintegrating 1 [...] sara-care- personal hygiene wipes- hand soap and cryptologic technician operator/analyst as per prior order- box of medium gloves- to follow up with heel caser and PCP for further monitoring and management [...] they most likely to go back?[facility] have a change in condition, Blood pressure > 170/90Acute illness, change in condition or medication and with any questions about your healthFall, any unusual symptoms or have any medical questions! 2024-04-11 17:04:12 Televideo 10-29min; 1 minor problem; add add modifier 95 for video, modifier 93 for phoneContinue to see PCP. [facility] any acute or disease [...] appt with ENT 04/18/24F/U with COURTNEY 04/14/23 2024-04-14 09:27:19 Estab. patient 10-29 min; 1 minor problem; add add modifier 95 for video, modifier 93 for phoneContinue to see PCP. [facility] any acute or disease education needs that may arise 05/10.Add Contingency Plan10/15/22-Not currently taking any bp medications per member [...] Follow up with Psychiatry for provider assignment10/15/22: [facility] done in 09/2022. No interventions.1. F/u with [...] for and report early any s/s of zrtqusyvt26/22/23- continue plan of care and conservative measures eRx New Loperamide 2 mg Cap 2 tablets after first loose stool, then take 1 tablet after each loose stool max 4 times daily #30 capsule [id number] New Dicyclomine 20 mg Tab TAKE 1 TABLET BY MOUTH AC/HS for stomach pain/spasms #60 tablet [id number] New Ondansetron 8 mg Tab Disintegrating 1 tablet orally every 8 hours as needed nausea #30 tablet RFx0hx: 10/15/22: EGD 09/25/22 but has to repeat for unknown reasonsUC: 10/15/22-Stopped taking unknown medication but scheduled to f/u with PCP next monthGERD: -On Omeprazole8/3/23: Avoid dietary triggers caffeine, chocolate, spicy foods, [...] sara-care- personal hygiene wipes- hand soap and 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 2023-02-23 Juan Jose and nikos barillas sent, call anytime if no improvement Health Concerns Date Concern 2024-04-14 Visit completed via audio by telephone. Patient/Guardian agreed to visit via telehealth.Time spent in visit: 5 min 2024-04-14 Most recent hospital stay(s) or ER visit(s) and precipitating factors: 2024-04-14 HEDIS review: review ed
[2024-05-03 15:41] VITALS: BP 138/66; PULSE 81; RESP 17; TEMP 36.8; O2SAT 99; BMI 25.8
--- NOTE | 2024-05-03 15:41 | AM.OFFWIN_ITS ---
Intake Vital Signs 05/03/24 15:41 Height 5 ft 4 in Weight 150 lb 8 oz BMI 25.8 BP 138/66 Blood Pressure Location Lt brachial Position Sitting Respiration 17 Pulse 81 Pulse Source Pulse Oximeter Temp 98.2 F Temp Source Oral Pulse Oximetry (%) 99 Oxygen Delivery Method Room Air Intake Visit Reasons: EP cramping in bladder Patient Tobacco Use Status: Former Tobacco user Allergies prednisone Adverse Reaction (Intermediate, Verified 05/03/24 15:41) Anxiety Medication List - Last Reconciled 05/03/24 by Janie Posey MD bupropion HCl 1 tab PO DAILY diclofenac sodium 1% 2 grams topical BID PRN escitalopram oxalate 10 mg PO DAILY@1300 PRN gabapentin 1 tab PO DAILY geriatric [id number] (Centravites 50 Plus tablet) 1 tab PO DAILY hydroxychloroquine 300 mg (1.5 x 200 mg) PO DAILY [Levbid ] lorazepam 0.5 mg PO DAILY PRN melatonin 10 mg PO BEDTIME PRN omeprazole 20 mg PO DAILY PRN tacrolimus 0.1% 1 applic topical Q OTHER DAY [thumb spica wear nightly & as much as possible throughout the day] triamcinolone acetonide 0.1% 1 appl topical BID PRN zolpidem 2.5 mg PO BEDTIME PRN Do you need a note to return to daycare/school/sports/work: No HPI EP cramping in bladder HPI Details - The patient is a 69-year-old female pr esenting with lower abdominal pain - The pain has been present with interm ittent episodes and varies in intensity. - The patient has been taking Tylenol fo r pain, with limited benefit attributed to her concurrent lupus management. - She reports a past episode of blood in urine only once, self-resolved, without further urinary symptoms. - The patient underwent a hysterectomy f or precancerous uterine changes, with removal of ovaries. - A CT scan previously confirmed absence of renal stones but revealed consti pation issues. UA dont show any sign of infection , no blood Problem List - Left Lower Abd back pain - Diverticulitis - History of hysterectomy due to uterine precancer - Lupus Patient Instructions - Take prescribed antibiotics for seven days as directed. - Continue current dietary management to prevent constipation. - Schedule and attend a follow-up appoin tment on the third or sooner if symptoms worsen. - Monitor for any new symptoms or worsen ing of current conditions. - eat light meals Review of Systems - General: No fever no chills - Neurological: No headaches no dizziness - Ear nose throat: No sore throat no hearing difficulty no ear pain - Cardiovascular: No syncope, no chest pain, no palpitations - Gastrointestinal: No nausea vomiting or diarrhea - Endocrine: No polyuria polydipsia no heat intolerance - Genitourinary: No dysuria , no blood in urine Physical Exam General: No acute distress HEENT: No acute findings Neck: Supple Respiratory system: Able to talk in full sentences, no audible wheeze cardiovascular: S1-S2 regular in rate and rhythm Gastrointestinal: Pain L L abdominal area with pressure , possible diverticulitis Extremities: Pain in the legs 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 Brother No problems noted. Sister No problems noted. Sister No problems noted. Sister No problems noted. Sister Hyperlipidemia HTN (hypertension) Depression Myocardial infarction Daughter No problems noted. Daughter No problems noted. Daughter No problems noted. Daughter No problems noted. Paternal Aunt Rheumatoid arthritis Other Mental health disorder Substance use disorder Social History Housing: Apartment Alcohol intake: current Alcohol intake frequency: does not drink Alcohol type: wine Patient Tobacco Use Status: Former Tobacco user e-Cigarette/Vaping Use: Never Used Advance Directives Date on File: 01/15/23 service: No Current occupational status: unemployed Cognitive needs: No Hearing needs: No Vision needs: No Physical Exam Vital Signs: Last Vital Signs Temp 98.2 F 05/03/24 15:41 Pulse 81 05/03/24 15:41 Resp 17 05/03/24 15:41 BP 138/66 05/03/24 15:41 Pulse Ox 99 05/03/24 15:41 Oxygen Delivery Method Room Air 05/03/24 15:41 BMI result Body Mass Index 25.8 Assessment & Plan Assessment & Plan (1) Acute diverticulitis: Code(s): K57.92 - Diverticulitis of intestine, part unspecified, without perforation or abscess without bleeding Plan - The patient is a 69-year-old female presenting with lower abdominal pain - The pain has been present with intermittent episodes and varies in intensity. - The patient has been taking Tylenol for pain, with limited benefit attributed to her concurrent lupus management. - She reports a past episode of blood in urine only once, self-resolved, without further urinary symptoms. - The patient underwent a hysterectomy for precancerous uterine changes, with removal of ovaries. - A CT scan previously confirmed absence of renal stones but revealed constipation issues. UA dont show any sign of infection , no blood Problem List - Left Lower Abd back pain - Diverticulitis - History of hysterectomy due to uterine precancer - Lupus Patient Instructions - Take prescribed antibiotics for seven days as directed. - Continue current dietary management to prevent constipation. - Schedule and attend a follow-up appointment on the third or sooner if symptoms worsen. - Monitor for any new symptoms or worsening of current conditions. - eat light meals Orders: Orders AMB Urinalysis Automated Today Z13.9 - Encounter for screening, unspecified Medications: New levofloxacin 500 mg PO DAILY 7 days 7 tabs 0RF metronidazole 500 mg PO BID 7 days 14 tabs 0RF Coding Level of Care Code Est Pt Level 4 (52273) Diagnoses Acute diverticulitis K57.92
== END 2024-05-03 16:23 | disposition home or self-care (01) ==
PROVIDERS: PCP Internal Medicine; Visit Provider Internal Medicine
DX: K57.92 Diverticulitis of intestine, part unspecified, without perforation or abscess without bleeding (principal); Z13.9 Encounter for screening, unspecified

== ENCOUNTER → 2024-05-03 15:13 | Outpatient (BNVA) | payer OTHER, SELFPAY | PROVIDERS: PCP Internal Medicine | DX: K57.92 Diverticulitis of intestine, part unspecified, without perforation or abscess without bleeding (principal) | CPT/HCPCS: 81003; 99212 ==

== ENCOUNTER 2024-05-15 11:19 | Outpatient (AMB) | payer OTHER, SELFPAY ==
[2024-05-15 12:30] VITALS: BP 112/70; PULSE 65; RESP 16; TEMP 36.5; O2SAT 99; BMI 25.2
--- NOTE | 2024-05-15 12:30 | A.OFFPC_ITS ---
Vital Signs 05/15/24 12:30 Height 5 ft 4 in Weight 147 lb BMI 25.2 BP 112/70 Blood Pressure Location Rt brachial Position Sitting Respiration 16 Pulse 65 Pulse Source Pulse Oximeter Temp 97.7 F Temp Source Oral Pulse Oximetry (%) 99 Oxygen Delivery Method Room Air Intake Visit Reasons: f/u from walkin abd discomfort Intake Note: Pt is here today to f/u from walkin abdominal discomfort Allergies prednisone Adverse Reaction (Intermediate, Verified 05/22/24 02:05) Anxiety Medication List - Last Reconciled 05/15/24 by Osiris Soni MD bupropion HCl 1 tab PO DAILY diclofenac sodium 1% 2 grams topical BID PRN escitalopram oxalate 10 mg PO DAILY@1300 PRN gabapentin 1 tab PO DAILY geriatric eudrvcms-svno-mnfi (Centravites 50 Plus tablet) 1 tab PO DAILY hydroxychloroquine 300 mg (1.5 x 200 mg) PO DAILY lorazepam 0.5 mg PO DAILY PRN melatonin 10 mg PO BEDTIME PRN tacrolimus 0.1% 1 applic topical Q OTHER DAY [thumb spica wear nightly & as much as possible throughout the day] zolpidem 2.5 mg PO BEDTIME PRN Tobacco use date assessed: 05/15/24 Fall risk assessment: 2 + Falls in past year Last assessed Fall Risk: 05/15/24 Dental Screening Dental Screen Date: 05/15/24 Did you have a dental visit in the last 12 months?: Yes Did you have a dental problem in the last 6 months where you did not have access to dental care?: Yes Was dental information given to patient?: Patient [facility] HPI Details 69-year-old lady here today for follow-u p after recent visit to the walk-in clinic complaining of intermittent lower abdominal pain. She was diagnosed with acute diverticulitis and prescribed levofloxacin and metronidazole some improvement but still having intermittent episodes of abd ominal cramping, bloating, especially after food intake. CT scan previously done showed absence of renal stones but showed evidence of constipation. Urinalysis did not show any in sign of infection or blood . [facility] Medical History Venous insufficiency Right carotid bruit Diverticulitis Bipolar 1 disorder GERD (gastroesophageal reflux disease) History of cervical cancer Irritable bowel syndrome with constipation Weak urinary stream Surgical menopause Osteopenia Essential hypertension Dyslipidemia Anxiety Surgical History History of cardiac cath Hx of esophagogastroduodenoscopy Hx of colonoscopy History of partial hysterectomy Family History Father Throat cancer Mother No problems noted. Brother No problems noted. Sister No problems noted. Sister No problems noted. Sister No problems noted. Sister Hyperlipidemia HTN (hypertension) Depression Myocardial infarction Daughter No problems noted. Daughter No problems noted. Daughter No problems noted. Daughter No problems noted. Paternal Aunt Rheumatoid arthritis Other Mental health disorder Substance use disorder Social History Housing: Apartment Alcohol intake: current Alcohol intake frequency: does not drink Alcohol type: wine Patient Tobacco Use Status: Former Tobacco user e-Cigarette/Vaping Use: Never Used Advance Directives Date on File: 01/15/23 service: No Current occupational status: unemployed Cognitive needs: No Hearing needs: No Vision needs: No Questionnaire PHQ-9 Over the last 2 weeks, how often have you been bothered by any of the following problems? 1. Little interest or pleasure in doing things: not at all 2. Feeling down, depressed, or hopeless: not at all 3. Trouble falling or staying asleep, or sleeping too much: more than half the days 4. Feeling tired or having little energy: several days 5. Poor appetite or overeating: nearly every day 6. Feeling bad about yourself - or that you are a failure or have let yourself or your family down: not at all 7. Trouble concentrating on things, such as reading the newspaper or watching television: more than half the days 8. Moving or speaking so slowly that other people could have noticed. Or the opposite - being so fidgety or restless that you have been moving around a lot more than usual: several days 9. Thoughts that you would be better off or of hurting yourself in some way: not at all Total score: 9 Depression Screening Interpretation: Positive (Followed by psychiatry, currently on escitalopram and lorazepam) Depression Screening Follow-up: Existing condi tion, In treatment and Community Mental Health Worker F/U Depression Screening Done: Yes Source: Developed by Drs. Howie Leavitt, Ellie Kirkpatrick, Ponce Magdaleno and colleagues, with an educational nathanael from [employer]. Thrive Questionnaire Date Thrive assessed: 05/15/24 I am a: Patient What is your living situation today?: I have a steady place to live Within the past 12 months, did the food you bought not last and you didn't have the money to get more?: Never true Within the past 12 months, did you worry whether your food would run out before you got money to buy more?: Never true Do you have trouble paying for medicines?: No Do you have trouble getting transportation to medical appointments?: Yes Do you have trouble paying your heating and electricity bill?: No Do you have trouble taking care of your child, family member or friend?: No Do you have trouble with day-to-day activities such as bathing, preparing meals, shopping, managing finances, etc.?: No Are you currently unemployed and looking for a job?: No Are you interested in more education?: No Please select the resources that you would like help with: None Currently or been in a relationship where the following occur: No concerns reported THRIVE Score: 1 AUDIT C Alcohol Use Questionnaire (AUDIT-C) 1. How often do you have a drink containing alcohol?: Never Total Score: 0 GEETA-7 AMB Questionnaire GEETA-7 Date GEETA - 7 assessed: 08/17/23 Feeling nervous, anxious, or on edge: 0 = Not at all Not being able to stop or control worryin = Not at all Worrying too much about different things: 0 = Not at all Trouble relaxin = Not at all Being so restless that it is hard to sit still: 0 = Not at all Becoming easily annoyed or irritable: 0 = Not at all Feeling afraid as if something awful might happen: 0 = Not at all Total GEETA-7 score (0-4 normal; 5-9 mild; 10-14 moderate; 15-21 severe): 0 Source: Developed by Ellie Magdaleno Kurt Kroenke and colleagues, with an educational nathanael from [employer]. Review of Systems Const All systems reviewed & are unremarkable except as noted in HPI and below Physical exam (Primary Care) Vital Signs: Last Vital Signs Temp 97.7 F 05/15/24 12:30 Pulse 65 05/15/24 12:30 Resp 16 05/15/24 12:30 BP 112/70 05/15/24 12:30 Pulse Ox 99 05/15/24 12:30 Oxygen Delivery Method Room Air 05/15/24 12:30 BMI result Body Mass Index 25.2 Tobacco/Smoking Status: Tobacco use Status Tobacco use date assessed 05/15/24 05/15/24 12:40 Patient Tobacco Use Status Former Tobacco user 05/15/24 12:40 e-Cigarette/Vaping Use Never Used 05/15/24 12:40 PHQ-9: PHQ-9 Score PHQ-9: Total score 10 05/15/24 13:06 Depression Screening Interpretation: Positive (Followed by psychiatry, currently on escitalopram and lorazepam) Depression Screening Follow-up: Existing conditi on, In treatment and Community Mental Health Worker F/U Thrive Assessment: Date of Thrive Assessment Date Thrive assessed 08/17/23 05/15/24 12:40 Currently or been in a relationship where the following occur: No concerns reported Const Other: Alert oriented x3, no acute distress noted ambulatory normal gait HENMT Ears: external ears normal and EAC's normal Face and sinus: Yes sinus tenderness (Left maxillary) Mouth: oropharynx normal and moist mucous membranes Neck Neck: Yes full ROM, Yes no lymphadenopathy and Yes supple Resp Auscultation: clear to auscultation bilaterally Cardio Other: S1-S2 present regular rate and rhythm GI Other: Hyperactive bowel sounds Palpation (GI): Soft to palpation, nontender, no guarding and no masses General: Yes no CVA tenderness Back/Spine/Pelvis Back: no CVA tenderness Results Reviewed Results Reviewed: Name: Jessa Minor Age/Sex: 69/F : 1955 Unit#: [id number] Attend Dr: Justin Lawrence MD Re04/07/24 Status: DEP ER Location: [facility] Disch: SPEC : [id number] FORTINO: 04/07/24 STATUS: COMP REQ : [id number] RECD: 04/07/[address]: Madelaine Jones NP COMP: 04/07/24 ENTERED: 04/07/[address] [facility] [address]: Osiris Soni MD ORDERED: CBC Auto Diff Test Result Flag Reference WBC 6.5 4.8-10.8 X10*3/uL RBC 4.62 4.20-5.50 X10*6/ uL HGB 14.0 12.0-16.0 g/dl HCT 41.9 37.0-47.0 % MCV 90.7 80.0-98.0 fL MCH 30.3 27.0-33.0 pg MCHC 33.4 31.0-35.0 g/dl RDW 13.3 11.0-16.0 % PLT 158 L 160-400 X10*3/uL MPV 11.3 9.4-12.3 fL Neut Pct Auto 65.5 45-73 % ImGran Pct Auto 0.2 0.0-0.4 % Lymp Pct Auto 15.0 L 20-40 % Moody Pct Auto 11.3 H 2-11 % Eos Pct Auto 7.4 H 0-4 % Baso Pct Auto 0.6 0-2 % NRBC Pct Auto 0.0 0.0-0.2 /100WBC ANC Neut Abs # 4.3 2.0-8.3 x10*3/uL ImGran Abs Auto 0.01 0.00-0.03 X10*3/uL Lymph Abs Auto 1.0 L 1.2-4.9 X10*3/uL Moody Abs Auto 0.7 0.1-1.2 X10*3/uL Eos Abs Auto 0.5 H 0.0-0.4 X10*3/uL Baso Abs Auto 0.0 0.0-0.2 X10*3/uL NRBC Abs Auto 0.000 0.0-0.012 X10*3/uL wale: Jessa Minor Age/Sex: 69/F : 1955 Unit#: [id number] Attend Dr: Justin Lawrence MD Re04/07/24 Status: DEP ER Location: [facility] Disch: SPEC : [id number] FORTINO: 04/07/24 STATUS: COMP REQ : [id number] RECD: 04/07/24 [facility] DR: Madelaine Jones KERRICK KLEANER OPERATOR COMP: 04/07/24-161 ENTERED: 04/07/24-[address] [facility] [address]: Osiris Soni MD ORDERED: CMP Test Result Flag Reference Sodium 142 135-145 mmol/L Potassium 4.4 3.3-5.1 mmol/L CL 107 96-108 mmol/L CO2 28 22-29 mmol/L Gap 11 L 12-20 BUN 10 9-16 mg/dL Creat 0.69 0.5-1.4 mg/dL Estimated CrCl 71.2 Provided height and weight: 162.56 cm, 66.7 kg. eGFR (calculated from the MDRD study equation) and eCrCl (calculated from the Cockcroft-Gault equation) are based on different parameters and may not yield comparable results. If eCrCl result is absurd, please check patient's height/weight. eGFR > 60 Chronic Kidney Disease: Estimated GFR < 60 mL/min/1.73m2 Severe Kidney Disease: Estimated GFR < 15 mL/min/1.73m2 Glucose, Random 92 60-115 mg/dL CA 9.5 # 8.4-10.2 mg/dL Total Bili 0.4 0.0-1.0 mg/dL AST (GOT) 39 H 5-31 U/L ALT (GPT) 61 H 0-31 U/L Protein, Total 8.2 H 6.5-8.0 g/dL Alb 4.4 3.5-5.0 g/dL Alk Phos 72 39-117 U/L Coding Level of Care Code Est Pt Level 3 (93396) Diagnoses Pain, abdominal, nonspecific R10.9 Assessment & Plan Assessment & Plan (1) Pain, abdominal, nonspecific: Code(s): R10.9 - Unspecified abdominal pain Category: Medical Plan: Already completed her levofloxacin and metronidazole which offered some improvement of symptoms, but still feeling bloated. Prescription sent for hyoscyamine 0.125 mg to take 1 tablet twice a day as needed for episodes of bloating and dyspepsia. Advised to follow-up with GI if symptoms persists Medications: New hyoscyamine sulfate 0.125 mg PO BID PRN 60 tabs 0RF dyspepsia
--- OUTSIDE RECORDS SUMMARY | 2024-05-15 13:24 | XMS_ITS ---
Author Organization [facility] Address [address] [place] [address] Care Team Providers Care Letter Of Credit Clerk Name Role Phone Nae LILLY, Osiris Primary Care Provider Paula Lopez Jr, Alban Larsen [phone] REASON FOR VISIT labs Encounters Encounter Location Date Provider Diagnosis [facility] [address] [place] [address] 11/27/2022 Alban Lopez Jr PLAN OF TREATMENT No Information
--- OUTSIDE RECORDS SUMMARY | 2024-05-15 13:24 | XMS_ITS | Data Portability ---
Author Organization [facility] Former[facility], Allergy Address [address] [address] Care Team Providers Care Heel Slicker Name Role Phone PENELOPE CORNELIUS Primary Care Provider [phone] Assessment Encounter Date Assessment Date Assessment LastModified [...] benefit from immunotherapy if approved by her apartment locator in [place]. All questions answered. [email or web address] Not available 04/26/2024 16:45:50 Plan of Treatment Reminders Order Date Submit Date Provider Last Modified By Organization Details Last Modified Time Details Appointments Allergy Test 2024 01:00P [facility] Not available Not available Not available Lab [...] 2024 025 [facility], [address], [place], [place], [id number], 04/26/2024 16:45:06 azelastin e 137 mcg (0.1 %) nasal spray 2023 024 [facility], [address], [place], [place], [id number], 09/21/2023 10:31:40 Patient TargetsNo targets recorded. Patient [...] Recorded Time Bilateral temporoma ndibular joint pain 19962259181 709534 Active 2018 Arthralgi a of bilateral temporoma ndibular joint; Note: Date Diagnosed : 07/27/2018 1:25 PM (M26.623) Not Available [facility] 4 02:46:53 Headache 76178697 Active 2018 Headache, unspecifi ed; Note: Changed from R51 to R51.9 ( 1 3:43 PM) , Date Diagnosed : 04/08/2018 12:10 PM (R51) Not Available [facility] 4 02:46:52 Pain of right temporoma ndibular joint 13741487798 684057 Active 2016 Arthralgi a of right temporoma ndibular joint; Note: Date Diagnosed : 04/22/2016 1:59 PM (M26.621) Not Available [facility] 4 02:46:53 Sensorine ural hearing loss of bilateral ears 317980749 Active 2020 Sensorine ural hearing loss, bilateral ; Note: Date Diagnosed : 1 12:18 PM (H90.3) Not Available [facility] 4 02:46:50 Migraine 21353230 Active 2017 Other migraine, not intractab le, without status migrainos us; Note: Date Diagnosed : 03/25/2017 12:19 PM (G43.809) Not Available [facility] 4 02:46:55 Acute sinusitis 90685263 Active 2020 Other acute sinusitis ; Note: Date Diagnosed : 08/15/2020 1:41 PM (J01.80) Not Available [facility] 4 02:46:57 Gastroeso phageal reflux disease without esophagit is 804197929 Active 2017 Gastro-es ophageal reflux disease without esophagit is; Note: Date Diagnosed : 8 9:31 AM (K21.9) Not Available [facility] 4 02:46:51 Dizziness and giddiness 919297670 Active 2017 Dizziness and giddiness ; Note: Date Diagnosed : 03/25/2017 11:43 AM (R42) Not Available [facility] 4 02:46:55 Vasomotor rhinitis 5919566 Active 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; Note: Date Diagnosed : 03/25/2017 11:50 AM (J30.0) Not Available [facility] 4 02:46:50 Tinnitus of left ear 35936102094 06 Active 2017 Tinnitus, left ear; Note: Date Diagnosed : 03/25/2017 11:55 AM (H93.12) Not Available [facility] 4 02:46:57 Chronic rhinitis 11842190 Active 2013 Chronic pharyngit is and nasophary ngitis: Chronic rhinitis; CMS Risk: low risk [facility] Treatment : new problem (to examiner) : no additiona l workup planned N ote: Date Diagnosed : 12/19/2013 12:00 PM (472.0) Not Available [facility] 4 02:46:56 Follow-up visit Active 2016 Encounter for follow-up examinati on after completed treatment for condition s other than malignant neoplasm; Note: Date Diagnosed : 7 4:29 PM (Z09) Not Available [facility] 4 02:46:56 Dysphasia 69104756 Active 2017 Dysphasia ; Note: Date Diagnosed : 8 9:31 AM (R47.02) Not Available [facility] 4 02:46:56 Posterior rhinorrhe a 99233247 Active 2016 Postnasal drip; Note: Date Diagnosed : 04/22/2016 1:54 PM (R09.82) Not Available [facility] 4 02:46:55 Acute pharyngit is 375698197 Active 2022 Sore throat (acute) NOS; Note: Date Diagnosed : 3 12:47 PM (J02.9) Not Available [facility] 4 02:46:56 Nasal congestio n 07065325 Active 2016 Nasal congestio n; Note: Date Diagnosed : 04/22/2016 1:54 PM (R09.81) Not Available [facility] 4 02:46:53 Allergic rhinitis 27706352 Active 2015 Other allergic rhinitis; Note: Changed from J30.9 to J30.89 ( 6 4:25 PM) , Date Diagnosed : 01/22/2016 3:54 PM (J30.9) Not Available [facility] 4 02:46:49 Nasal mucosa dry 15208141 Active 2023 QUTEA MATTHEWS PA-C [address] [place] [address],[facility] [address], [place], [address] , [place] - [facility] 4 11:02:24 Anterior rhinorrhe a 423828192 Active 2024 ANGELIKA RODRÍGUEZ PA-C [facility] [address] [place], [address] , [place] - [facility] 5 16:32:07 Atypical facial pain 71763077 Active 2024 ANGELIKA RODRÍGUEZ PA-C [address] [facility] [place] [address] [place], [address] , [place] - [facility] 5 16:43:52 Non-aller gic rhinitis 09026631643 1 Active 2024 ANGELIKA RODRÍGUEZ PA-C [address] [facility],[facility] [address] [place], [address] , [place] - [facility] 5 16:44:24 Seasonal allergic rhinitis 766268097 Active 2024 ANGELIKA RODRÍGUEZ PA-C [address] [facility] [place] [address] [place], [address] , [place] - [facility] 5 16:44:24 Problem Notes None recorded. Procedures Surgical History Date Name Laterality Status Provider Name and Address Organization Details Recorded Time Nasal Endoscopy completed ANGELIKA RODRÍGUEZ PA-C [address] [facility] [place], [place], [address], [place] - [facility] 04/26/2024 16:39:27 Imaging Results Imaging Date Name Status [facility] by [facility] Details LastModified Time 07/27/2018 imaging/diag nostic result [...] by mouth 08/15 completed Medicati on ID: [id number] D uration Value: 10 Prescri bed By [...] LATER IF SYMPTOMS HAVE NOT IMPROVED . active Not Available Not Available No t Available phenazopy ridine 200 mg tablet active Medicati on ID: [id number] B rand Name: phenazop yridine Send Method: [...] mg tablet 12/30 completed Medicati on ID: [id number] D uration Value: 8 Brand Name: ondanset antony HCl Send Method: E-Prescr ibed Sub s Allowed: subs OK Medic ationGen ericName : ondanset antony HCl Not Available Not Available Not Available prednison e 20 mg tablet 2 tablet by mouth 12/30 completed Medicati on ID: [id number] D uration Value: 5 Prescri bed By [...] completed Not Available Not Available Not Available metronida zole 500 mg tablet TAKE 1 TABLET BY MOUTH TWICE A DAY FOR 7 DAYS active Not Available Not Available No t Available terazosin 1 mg capsule TAKE 1 CAPSULE BY MOUTH AT BEDTIME active Not Available Not Available No t Available butalbita l-acetami nophen-ca ffeine 50 mg-325 mg-40 mg tablet 12/30 completed Medicati on ID: [id number] D uration Value: 2 Brand Name: butalbit [...] mg tablet 12/30 completed Medicati on ID: [id number] D uration Value: 30 Brand Name: carbamaz [...] capsule 01/05 completed Medicati on ID: [id number] [place] son: () Brand Name: gabapent in Send [...] Not Available Not Available No t Available levofloxa mignon 500 mg tablet TAKE 1 TABLET BY MOUTH EVERY DAY FOR 7 DAYS active Not Available Not Available No t Available estradiol 0.01% (0.1 mg/gram) vaginal cream FOR 30 DAYS VAGINALL Y 3 TIMES A WEEK PEA SIZED AMOUNT TO URETHRA 3 TIMES A WEEK 03/23 completed Not Available Not Available Not Available zolpidem 10 mg tablet 07/08 completed Medicati on ID: 2176 [place] son: () Brand Name: zolpidem Send Method: [...] topical cream 12/30 completed Medicati on ID: [id number] D uration Value: 23 Brand Name: doxepin [...] mg tablet 03/23 completed Medicati on ID: [id number] D uration Value: 1 Brand Name: diazepam [...] extended release 03/23 completed Medicati on ID: [id number] D uration Value: 30 Brand Name: bupropio n HCl Send Method: E-Prescr ibed Sub s Allowed: subs OK Speci al Instruct ion: TAKE 1 TABLET EVERY MORNING Medicati onGeneri cName: bupropio n HCl Not Available Not Available Not Available escitalop qasim 5 mg tablet 07/08 completed Medicati on ID: [id number] D uration Value: 30 Reason: () Brand Name: escitalo pram oxalate Send Method: E-Prescr ibed Sub s Allowed: subs OK Speci al Instruct ion: TAKE 1 TABLET BY MOUTH ONCE A DAY TAKE IN ADDITION TO 20MG TABLET, TDD =25MG Me dication GenericN wale: escitalo pram oxalate Not Available Not Available Not Available diclofena c 1 % topical gel APPLY 2 G TOPICALL Y 2 TIMES A DAY NEEDED FOR PAIN APPLY TO JOINTS active Not Available Not Available No t Available omeprazol e magnesium 20 mg capsule,d elayed release 07/08 completed Medicati on ID: [id number] [place] son: () Brand Name: omeprazo le magnesiu m Send Method: E-Prescr ibed Sub s Allowed: subs OK Medic ationGen ericName : omeprazo ray draperesiu m Not Available Not Available Not Available Sodium Fluoride 5000 Plus 1.1 % dental cream APPLY DIRECTED TO TEETH THREE TIMES DAILY active Not Available Not Available No t Available Vitals Date Recorded Body height Body mass index (BMI) Body weight Provider Name and Address Organization Details Last Updated DateTime 09/21/2023 157.48 cm 25.6 kg/m2 79725.93 g Lorenza Villarreal [place] [facility] 09/21/2023 10:22:52 Date Recorded Body height Body weight Provider Name and Address Organization Details Last Updated DateTime 2024 157.48 cm 85629.93 g Lorenza Villarreal [facility] 2024 10:20:24 Date Recorded Body height Body mass index (BMI) Body weight Provider Name and Address Organization Details Last Updated DateTime 04/26/2024 157.48 cm 25.6 kg/m2 34952.93 g Magy Mo [facility] 04/26/2024 16:06:43 Social History None recorded. Functional Status None recorded. Mental Status None recorded. Family History Nothing Reported. Medical History Condition Response Allergies/Hayfever Y Heart Problems N Anxiety Y Tonsil Infections N Emphysema N Migraines N Thyroid Problems N Depression Y COPD N Developmental Delay N Glaucoma Y Nasal or Sinus Problems Y Anemia N Immune System Disorder N Anesthesia Complications N Heart Attack (PA) Y Other Skin Condition Y Diabetes N Rhinitis N Bleeding Disorder N Food Allergy N Hearing Loss N Arthritis Y Hyperlipidemia N Cancer N Stroke N Dementia N Nasal polyps N Asthma N Sleep Disorder N High Cholesterol N GERD/Reflux N Liver Disease N Headaches Y Fibromyalgia Y Hypertension N Speech Delay N Kidney Disease Y Gynecological HistoryNo gynecological history recorded. Obstetrics History GPAL:G 0 P 0 0 0 0 Past Encounters Encounter ID Performer Location Encounter Start Date Encounter Closed Date Diagnosis/Indication Diagnosis SNOMED-CT Code Diagnosis ICD10 Code Diagnosis Note [id number] MARLA GARCIA MD [facility] [address] [address] 09/21/2023 10:18:14 09/21/2023 10:37:56 Vasomotor rhinitis 0986960 J30.0 Nasal mucosa dry 9228182 2 J34.89 [id number] TY SMITH MD [facility] of [address] [place] [address] 2024 10:14:30 2024 10:41:37 Acute sinusitis 53912189 J01.90 Nasal congestion 5757705 0 R09.81 Nasal mucosa dry 2396412 2 J34.89 Vasomotor rhinitis 53085 03 J30.0 Posterior rhinorrhea 758 60196 R09.82 [id number] TY SMITH MD [facility] 100 [place] [address] 04/26/2024 16:01:00 04/26/2024 16:33:24 Posterior rhinorrhea 94658604 R09.82 Anterior rhinorrhea 2772 64171 J34.89 Allergic rhinitis 781184 04 J30.9 Headache 43305167 R51.9 Health Concerns Section Related Observation LastModified by Organization Detai ls LastModified Time None Recorded Concern Status LastModified by Organization Details LastModified Time None Recorded Advance Directives Directive None Recorded Payers Encounter Date Sequence Insurance Name Policy Number Policy Kuo Covered Member ID Kuo Member ID Guarantor Name 09/21/2023 1 [facility] (MEDICARE REPLACEMENT/ ADVANTAGE - HMO) [facility] Jessa Minor [id number] Jessa Minor 09/21/2023 2 [place] [facility] Jessa Minor [id number] Jessa Minor 2024 1 [facility] (MEDICARE REPLACEMENT/ ADVANTAGE - HMO) [facility] Jessa Minor [id number] Jessa Minor 04/26/2024 1 [facility] (MEDICARE REPLACEMENT/ ADVANTAGE - HMO) [facility] Jessa Nam Mily [id number] Jessa Minor Notes Date Note Type Note Provider Name and Address Organization Details Recorded Time 09/21/2023 text/html 68-year-old femrosanna bell presents for follow-up on rhinorrhea. She [...] pressure and sinus distribution, and hyposmia. MARLA SCHREIBSTEIN, MD 100 [facility],[place] [address], [place], [address], [facility] - [facility] 09/21/2023 11:31:24 2024 text/html 69 year old [...] stopped her fluticasone. TY SMITH MD 100 [facility],[address], [address], [facility] 2024 16:46:20 04/26/2024 text/html 69yo female [...] has lupus and is closely followed by [place] [facility]. TY SMITH MD [address] [facility] [place] [address], [place], [address], [facility] 04/26/2024 17:40:05 OBGyn Episode No OBEpisode recorded.
--- OUTSIDE RECORDS SUMMARY | 2024-05-15 13:24 | XMS_ITS | Encounter Summary ---
Author Organization [facility] Address [address] [facility] 7 [place] [address] Care Team Providers Care Machines Technician Name Role Phone Unavailable Primary Care Provider [...]
--- OUTSIDE RECORDS SUMMARY | 2024-05-15 13:24 | XMS_ITS | Clinical Summary ---
Author Organization [employer] Address [address] [facility] 7 [place] [address] Care Team Providers Care Resolution Specialist Name Role Phone Unavailable Primary Care [...] Description 02/16/2024 1:00 PM EST Office Visit [facility] [address] [place] [address] Erica Tejada DDS from Last 3 Months [...] ESTABLISHED PATIENT Routine 02/22/2023 2:00 PM EST INTRAORAL - COMPLETE SERIES OF RADIOGRAPHIC IMAGES Routine 08/26/2020 12:00 AM EDT from Last 3 Months or Most Recently Relevant to Health Maintenance Insurance DENTAL - [facility]
--- OUTSIDE RECORDS SUMMARY | 2024-05-15 13:24 | XMS_ITS | Encounter Summary ---
Author Organization [facility] Address [address] [facility] [address] [place] [address] Care Team Providers Care Satellite Project Site Monitor Name Role Phone Unavailable Primary Care Provider Unavailabl e Encounter Details Date Type Department Care Team (Latest Contact Info) Description 03/30/2019 Abstract [facility] CONVERSIONS Dental, Provider, DDS Social History Tobacco [...]
--- OUTSIDE RECORDS SUMMARY | 2024-05-15 13:24 | XMS_ITS ---
Author Organization [facility] Address [address] [place] [address] Care Team Providers Care Risk Reduction Counselor Name Role Phone Nae LILLY, Osiris Primary Care Provider Alban Gerard Jr REASON FOR VISIT screening Encounters Encounter Location Date Provider Diagnosis [facility] Outpatient [address] [place] [id number] 01/07/2024 Alban Lopez Jr Colon cancer screening Z12.11 and Family history of colon cancer Z80.0 ASSESSMENTS Encounter Date Diagnosis Assessment Notes Treatment Notes Treatment Clinical Notes 01/07/2024 Colon cancer screening (ICD-10 - Z12.11) 01/07/2024 Family history of colon cancer (ICD-10 - Z80.0) PLAN OF TREATMENT No Information
--- OUTSIDE RECORDS SUMMARY | 2024-05-15 13:24 | XMS_ITS | Patient Health Record ---
Author Organization [facility] Address [address] [place] [address] Care Team Providers Care Manager Leadership Development Name Role Phone Osiris Soni MD Primary [...] ORALLY DAILY Oral for 90 Active Ipratropium Alva 0.03 % USE 2 SPRAYS EACH NOSTRILS [...] Problem Colon cancer screening (Z12.11) Active confirmed 127933824 Problem Gastro-esophage al reflux disease without esophagitis (K21.9) Active confirmed 273203461 Problem Generalized abdominal pain (R10.84) Active confirmed 215242740 Problem Other dysphagia (R13.19) Active confirmed 52159665 Problem Dysphagia (R13.10) Active confirmed Dysphagia (46408362) Problem Constipation, unspecified constipation type (K59.00) Active confirmed 14091995 Problem Gastritis (K29.70) Active confirmed Gastritis (1230684) Problem Diarrhea, unspecified type (R19.7) Active confirmed 55151954 Problem Esophageal reflux disease (K21.9) Active confirmed Gastroesophagea l reflux disease (929553863) Problem Gastric intestinal metaplasia (K31.A0) Active confirmed 00150943 VITAL SIGNS Temperature 98.0 degrees Fahrenheit 11/29/2023 Blood pressure diastolic 00 mm Hg 11/29/2023 Height 65.5 in 11/29/2023 Blood pressure systolic 000 mm Hg 11/29/2023 Weight 145 lbs 11/29/2023 BMI 23.76 kg/m2 11/29/2023 Encounters Encounter Location Date Provider Diagnosis [facility] Outpatient [address] [place], [place] [id number] 01/07/2024 Alban Lopez Jr Colon cancer screening Z12.11 and Family history of colon cancer Z80.0 [facility] [address] [place] [address] 11/29/2023 Alban Lopez Jr Gastro-esophageal reflux disease [...] Insured Coverage Start Date Coverage End Date [facility] [address] [address] [place] [address] [id number] PAULETTE SERRANO Self - patient is the insured MEDICAID OF [place] [address] [place] [phone] [id number] PAULETTE SERRANO Self - patient is the insured MEDICAL (GENERAL) HISTORY Medical History History ICD Code Hypertension bipolar disorder GERD, upper endoscopy 3, gastric intestinal metaplasia at one site, 2-3 year followup diverticulitis arthritis neuropathy Colonoscopy 01/31 benign cecal polyp, te n-year followup lupus Surgical History Surgery Date(Month/Year) hysterectomy 1985
--- OUTSIDE RECORDS SUMMARY | 2024-05-15 13:25 | XMS_ITS | Clinical Summary ---
Author Organization [facility] it Address [address] [place] [address] Care Team Providers Care Printed Circuit Board Panels Developer Name Role Phone Osiris Soni MD Primary [...] age to complete this topic Care Teams Printed Circuit Board Panels Developer Relationship Specialty Start Date End Date Osiris Soni MD [address] [place] [address] PCP - General Internal Medicine 06/06/11
--- OUTSIDE RECORDS SUMMARY | 2024-05-15 13:25 | XMS_ITS ---
Author Name Jenae Larson NP Address [address] [place] [address] Phone [phone] Organization [facility] Care Team Providers Care Tile Mechanic Name Role Phone Jenae Larson Unavailable [phone] Alban Lopez Unavailable [phone] Reason for Referral Not Available Allergies, adverse [...] 7 days. 2023-02-23 No Data Available Ipratropium [place] 0.03 % Solution USE 2 SPRAYS EACH NOSTRILS 1-3 TIMES DAILY 15 MINUTES BEFORE MEALS 2023-05-06 No Data Available Diclofenac Sodium 1 % Gel 4 grams topica lly to affected area 4 times per day PRN 2023-07-09 No Data Available Loratadine 10 mg Tab TAKE 1 TABLET BY [facility] EVERY DAY 2023-07-27 No Data Available Escitalopram Oxalate 20 mg Tab No Data Available 06-10 No Data Available Triamcinolone Acetonide 0.1 % Oint No Data Available 2022-08-20 No Data Available Hydroxychloroquine Sulfate 2 00 mg Tab TAKE 1 AND 1/2 TABLETS BY MOUTH EVERY DAY 2023-08-19 No Data Available Terazosin 1 mg Cap TAKE 1 CAPSULE BY [facility] EVERYDAY AT BEDTIME 2023-12-14 No Data Available Sodium Fluoride 5000 PPM 1.1 % Crm APPLY DIRECTED TO TEETH THREE TIMES DAILY 2024-02-16 No Data Available Azithromycin 250 mg Tab TAKE 2 TABLETS B Y MOUTH TODAY, THEN TAKE 1 TABLET DAILY FOR 4 DAYS DIRECTED 2024-04-07 No Data Available Augmentin 875mg Tab 1 tablet Q12H x 10 days 2024-04-11 No Data Available Diflucan 150 mg Tab Take 1 tablet PO. Ma y take 1 tablet 72 hours later if symptoms have not improved. 2024-05-09 No Data Available levoFLOXacin 500 mg Tab TAKE 1 TABLET BY MOUTH EVERY DAY FOR 7 DAYS 2024-05-03 No Data Available Problem List Problem Status [...] Active 2023-08-30 N/A Other problems related to [facility] facilities and other health care Active 2023-08-30 N/A Vaginal yeast infection Resolved 2023-02-232023 Sinus congestion Resolved 2022-10-20 2023-08-30 Pinched nerve Resolved 2023-01-05 2023-08-30 Rheumatoid arthritis with Im munodeficiency due to conditions classified elsewhere Active 2022-10-15 N/A Sinusitis Active 2024-04-11 N/A Encounters Encounters Type Facility Date of Service Diagnosis/Co mplaint No Data Available [facility] [place]2022 Other specified disorders of nose and nasal sinuses No Data Available [facility] [place] Data Available [facility] Data Available [facility] [place] No Data Available [facility] Data Available [facility] No Data Available [facility] [place] New patient,40-59min; chronic exacerbation, 2 stable chronic or 1 acute illness add add modifier 95 for video (do not use for phone, instead use 26306-27) [facility] [place]22 Rheumatoid arthritis, unspecifiedUlcerative colitis, unspecified, without complicationsAtopic dermatitis, unspecifiedRash and other nonspecific skin eruptionEssential (primary) hypertensionBipolar II disorderGastritis, unspecified, without bleedingDorsalgia, unspecifiedRetention of urine, unspecifiedRepeated fallsGastro-esophageal reflux disease without esophagitisOld myocardial infarction New patient,40-59min; chronic exacerbation, 2 stable chronic or 1 acute illness add add modifier 95 for video (do not use for phone, instead use 13256-84) [facility] [place] New patient,40-59min; chronic exacerbation, 2 stable chronic or 1 acute illness add add modifier 95 for video (do not use for phone, instead use 83386-63) [facility] [place] New patient,40-59min; chronic exacerbation, 2 stable chronic or 1 acute illness add add modifier 95 for video (do not use for phone, instead use 27628-04) [facility] [place] New patient,40-59min; chronic exacerbation, 2 stable chronic or 1 acute illness add add modifier 95 for video (do not use for phone, instead use 04681-64) [facility] [place] New patient,40-59min; chronic exacerbation, 2 stable chronic or 1 acute illness add add modifier 95 for video (do not use for phone, instead use 63351-30) [facility] New patient,40-59min; chronic exacerbation, 2 stable chronic or 1 acute illness add add modifier 95 for video (do not use for phone, instead use 77526-80) [facility] [place] New patient,40-59min; chronic exacerbation, 2 stable chronic or 1 acute illness add add modifier 95 for video (do not use for phone, instead use 74929-83) [facility] No Data Available [facility]2023 Mononeuropathy, unspecified No Data Available [facility] Essential (primary) hypertensionBipolar II disorderOld myocardial infarctionRheumatoid arthritis, unspecifiedGastritis, unspecified, without bleedingUlcerative colitis, unspecified, without complicationsDorsalgia, unspecifiedAtopic dermatitis, unspecifiedRash and other nonspecific skin eruptionRetention of urine, unspecifiedRepeated fallsGastro-esophageal reflux disease without esophagitisNasal congestionMononeuropathy, unspecified No Data Available [facility] [place]23 No Data Available [facility] No Data Available [facility] No Data Available [facility] [place] No Data Available [facility] [place]23 No Data Available [facility] [place]2023 Ulcerative colitis, unspecif ied, without complicationsGastritis, unspecified, without bleedingGastro-esophageal reflux disease without esophagitisRetention of urine, unspecifiedUnspecified urinary incontinenceOveractive bladder No Data Available [facility] [place]2023 Acute candidiasis of vulva a nd vaginaEncntr for general adult medical exam w/o abnormal findingsEssential (primary) hypertension No Data Available [facility] [place] No Data Available [facility] [place] No Data Available [facility] [place] No Data Available [facility] [place] No Data Available [facility] [place]2023 Rheumatoid arthritis, unspec ified No Data Available [facility] [place]23 Rheumatoid arthritis, unspec ified No Data Available [facility] [place] No Data Available [facility] [place] No Data Available [facility] [place] No Data Available [facility] [place]23 Rheumatoid arthritis, unspec ified No Data Available [facility] [place] No Data Available [facility] [place] Estab. patient 30-39min; chronic exacerbation, 2 stable chronic or 1 acute illness add add modifier 95 for video, (do not use for phone, instead use 22336-27) [facility] [place]2023 Essential (primary) hypertensionBipolar II disorderOld myocardial [...] (do not use for phone, instead use 57188-38) [facility] [place]20[place] Estab. patient 30-39min; chronic exacerbation, 2 stable chronic or 1 acute illness add add modifier 95 for video, (do not use for phone, instead use 77098-36) [facility] [place]20[place] Estab. patient 30-39min; chronic exacerbation, 2 stable chronic or 1 acute illness add add modifier 95 for video, (do not use for phone, instead use 72322-26) [facility] [place]20[place] Estab. patient 30-39min; chronic exacerbation, 2 stable chronic or 1 acute illness add add modifier 95 for video, (do not use for phone, instead use 89426-89) [facility] [place]20[place] Estab. patient 30-39min; chronic exacerbation, 2 stable chronic or 1 acute illness add add modifier 95 for video, (do not use for phone, instead use 81750-58) [facility] [place]20[place] Estab. patient 30-39min; chronic exacerbation, 2 stable chronic or 1 acute illness add add modifier 95 for video, (do not use for phone, instead use 46786-64) [facility] [place]20[place] Estab. patient 30-39min; chronic exacerbation, 2 stable chronic or 1 acute illness add add modifier 95 for video, (do not use for phone, instead use 44177-44) [facility] [place]20[place] Estab. patient 30-39min; chronic exacerbation, 2 stable chronic or 1 acute illness add add modifier 95 for video, (do not use for phone, instead use 55704-62) [facility] [place]2023 Estab. patient 30-39min; chronic exacerbation, 2 stable chronic or 1 acute illness add add modifier 95 for video, (do not use for phone, instead use 03187-88) [facility] [place]20[place] Estab. patient 10-29min; 1 minor problem; add add modifier 95 for video, modifier 93 for phone [facility] [place]2024 Chronic sinusitis, unspecifi ed Estab. patient 10-29min; 1 minor problem; add add modifier 95 for video, modifier 93 for phone [facility] [place] 04[place]20[place] Estab. patient 10-29min; 1 minor problem; add add modifier 95 for video, modifier 93 for phone [facility] [place] Estab. patient 10-29min; 1 minor problem; add add modifier 95 for video, modifier 93 for phone [facility] Estab. patient 10-29min; 1 minor problem; add add modifier 95 for video, modifier 93 for phone [facility] [place]14/2024 Essential (primary) hypertensionBipolar II disorderOld myocardial infarctionRheumatoid arthritis, unspecifiedImmunodeficiency due to conditions classified elsewhereGastritis, unspecified, without bleedingUlcerative colitis, unspecified, without complicationsGastro-esophageal reflux disease without esophagitisDorsalgia, unspecifiedAtopic dermatitis, unspecifiedRash and other nonspecific skin eruptionUnspecified urinary incontinenceRetention of urine, unspecifiedOveractive bladderRepeated fallsEncntr for general adult medical exam w/o abnormal findingsOther problems related to medical facilities and other health careChronic sinusitis, unspecified Estab. patient 10-29min; 1 minor problem; add add modifier 95 for video, modifier 93 for phone [facility] [place] Estab. patient 10-29min; 1 minor problem; add add modifier 95 for video, modifier 93 for phone [facility] [place]/14/20[place] Estab. patient 10-29min; 1 minor problem; add add modifier 95 for video, modifier 93 for phone [facility] [place] 04/14/20[place] Estab. patient 10-29min; 1 minor problem; add add modifier 95 for video, modifier 93 for phone [facility] [place] Estab. patient 10-29min; 1 minor problem; add add modifier 95 for video, modifier 93 for phone [facility] [place]14/[facility] Estab. patient 10-29min; 1 minor problem; add add modifier 95 for video, modifier 93 for phone [facility] [place] Acute candidiasis of vulva a nd vagina Vital Signs Date of Collection Vitals 2022-10-20 [...] date Servicing provider Phone# No Data Available [id number] 2022-10-20 No Data Available No Data Available [...] (do not use for phone, instead use 25246-21) [id number] 2022-10-15 No Data Available No Data Availa [...] No Data Avail able No Data Available [id number] 2023-01-05 No Data Available No Data Available No Data Available [id number] 2023-01-16 No Data Available No Data Available [...] No Data Anastacia ilable No Data Available [id number] 2023-02-03 No Data Available No Data Available [...] (do not use for phone, instead use 66550-19) [id number] 2023-08-30 No Data Available No Data Availa [...] 95 for video, modifier 93 for phone [id number] 2024-04-12 No Data Available No Data Availa ble No Data Available [id number] 2024-04-12 No Data Available No Data Available SBP >= 140 3077F 2024-04-12 No Data Available No Data Available DBP <80 (3078F) 3078F 2024-04-12 No Data Available No Data Available Estab. patient 10-29min; 1 minor problem; add add modifier 95 for video, modifier 93 for phone [id number] 2024-04-14 No Data Available No Data Availa ble Medication List Documented (1159F) 1159F 2024-04-14 No Data Available No Data Anastacia ilable Functional Status Assessed (1170F) 1170F 2024-04-14 No Data Available No Data Avail able SBP >= 140 3077F 2024-04-14 No Data Available No Data Available DBP <80 (3078F) 3078F 2024-04-14 No Data Available No Data Available Pain Assessment - Pain Documented on a Pain Scale (1125F) 1125F 2024-04-14 No Data Available No Data Anastacia ilable Estab. patient 10-29min; 1 minor problem; add add modifier 95 for video, modifier 93 for phone [id number] 2024-05-09 No Data Available No Data Availa ble [...] to medical facilities and other health careSinusitis 2024-05-09 11:14:53 Vaginal jerald Plan of Care Date of Service Plans [...] stool max 4 times daily #30 capsule [id number] New Dicyclomine 20 mg Tab TAKE 1 TABLET BY MOUTH AC/HS for stomach pain/spasms #60 tablet [id number] New Ondansetron 8 mg Tab Disintegrating 1 tablet orally every 8 hours as needed nausea #30 tablet RFx0hx: 10/15/22: EGD 09/25/22 but has to repeat for unknown reasonsUC: 8/3/23-Stopped taking unknown medication but scheduled to f/u [...] sara-care- personal hygiene wipes- hand soap and cp bleacher operator as per prior order- box of medium gloves- to follow up with block and case maker and PCP for further monitoring and management hx: 10/15/22: Reports urinary retention and managed with Flomax1. Dz management discussed2. Continue to follow up with PCP 2023-02-23 11:16:05 New Diflucan 150 mg Tab Take 1 tablet PO. May take 1 tablet 72 hours later if symptoms have not improved. #2 tablet [id number] Miconazole Nitrate 2 % Crm Vaginal Apply to affected area daily x 7 days. #1 applicator [id number] (patient, parent, or guardian); 11-20 minutes of [...] Documented (1125F)Continue to see PCP. Follow-up with [facility] as needed for any acute or disease [...] for and report early any s/s of hvrdawfyz39/22/23- continue plan of care and conservative measures eRx New Loperamide 2 mg Cap 2 tablets after first loose stool, then take 1 tablet after each loose stool max 4 times daily #30 capsule [id number] New Dicyclomine 20 mg Tab TAKE 1 TABLET BY MOUTH AC/HS for stomach pain/spasms #60 tablet [id number] New Ondansetron 8 mg Tab Disintegrating 1 [...] sara-care- personal hygiene wipes- hand soap and cp bleacher operator as per prior order- box of medium gloves- to follow up with block and case maker and PCP for further monitoring and management [...] they most likely to go back?Please call [facility] if you have a change in condition, [...] for phoneContinue to see PCP. [facility] any [facility] or disease [...] Follow up with Psychiatry for provider assignment10/15/22: [facility] done in 09/2022. No interventions.1. F/u [...] for and report early any s/s of iwtlxxxem61/22/23- continue plan of care and conservative measures eRx New Loperamide 2 mg Cap 2 tablets after first loose stool, then take 1 tablet after each loose stool max 4 times daily #30 capsule [id number] New Dicyclomine 20 mg Tab TAKE 1 TABLET BY MOUTH AC/HS for stomach pain/spasms #60 tablet [id number] New Ondansetron 8 mg Tab Disintegrating 1 [...] sara-care- personal hygiene wipes- hand soap and cp bleacher operator as per prior order- box of medium gloves- to follow up with block and case maker and PCP for further monitoring and management [...] they most likely to go back?Please call [facility] if you have a change in condition, [...] appt with ENT 04/18/24F/U with [facility] 04/14/23 2024-05-09 11:14:53 Televideo 10-29min; 1 minor problem; add add modifier 95 for video, modifier 93 for phoneContinue to see PCP. [facility] for any acute or disease education needs that may arise 05/10.Diflucan 150 mg Tab Take 1 tablet PO. May take 1 tablet 72 hours later if symptoms have not improved. #2 tablet [id number] underwearNotify for persistant symptoms. Goals Date Goal 2022-10-20 do a NS nasal flush, apply warm compresses to you sinuses. if the pain does not resolve by tomorrow or if it gets worst please call us again 2022-10-15 Continue taking medi cations as directed and keep all follow up appointments with established PCP and Specialist. 2023-02-23 Diflucan and miconaz ole sent, call anytime if no improvement
--- OUTSIDE RECORDS SUMMARY | 2024-05-15 13:25 | XMS_ITS ---
Author Organization [facility] Address [address] [place] [address] Care Team Providers Care Hvac Maintenance Technician Name Role Phone Nae LILLY, Osiris Primary [...] Active methylPREDNISolone 4 MG PLEASE SEE [facility] FOR DETAILED DIRECTIONS Oral for 28 Active [...] ORALLY DAILY Oral for 90 Active Ipratropium [place] 0.03 % USE 2 SPRAYS EACH NOSTRILS [...] Problem Gastric intestinal metaplasia (K31.A0) Active confirmed [id number] VITAL SIGNS Temperature 98.0 degrees Fahrenheit 11/29/19 24 Blood pressure systolic 000 mm Hg 11/29/19 24 Blood pressure diastolic 00 mm Hg 024 Height 65.5 in 11/29/2023 Weight 145 lbs 11/29/2023 BMI 23.76 kg/m2 11/29/2023 Encounters Encounter Location Date Provider Diagnosis [facility] [address] [facility] [address] [place] [id number] 11/29/2023 Alban Lopez Jr Gastro-esophageal reflux disease [...]
== END 2024-05-15 13:22 | disposition home or self-care (01) ==
PROVIDERS: PCP Internal Medicine; Visit Provider Internal Medicine
DX: R10.9 Unspecified abdominal pain (principal)

== ENCOUNTER → 2024-05-15 11:19 | Outpatient (BNVA) | payer OTHER, SELFPAY | PROVIDERS: PCP Internal Medicine; Visit Provider Internal Medicine | DX: R10.9 Unspecified abdominal pain (principal) | CPT/HCPCS: 99212 ==

== ENCOUNTER → 2024-06-05 15:55 | Outpatient (BNVA) | payer OTHER, SELFPAY | PROVIDERS: PCP Internal Medicine; Visit Provider Obstetrics & Gynecology | DX: Z01.419 Encounter for gynecological examination (general) (routine) without abnormal findings (principal) | CPT/HCPCS: 99397; 99459 ==

== ENCOUNTER → 2024-06-05 15:55 | Outpatient (AMB) | payer OTHER, SELFPAY ==
--- NOTE | 2024-06-05 15:57 | MHC.OFFVIS ---
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 No complaints. Last Pap/HPV was negative in 12/01 the patient is status post hysterectomy for benign disease and has no history of abnormal Pap smear last 25 years Last Mammogram was BI-RADS 2 in 09/05 Last Colonoscopy was done in 01/05, the recommendation was to repeat in 5 years Last DEXA scan was in 07/06, the patient had no osteoporosis and was in the low risk category COUNT INCLUDES [facility] Medical History Venous insufficiency Right carotid bruit Diverticulitis Bipolar 1 disorder GERD (gastroesophageal reflux disease) History of cervical cancer Irritable bowel syndrome with constipation Weak urinary stream Surgical menopause Osteopenia Essential hypertension Dyslipidemia Anxiety Surgical History (Updated 06/05/24 @ 16:05 by Hira Christianson MD) History of cardiac cath Hx of esophagogastroduodenoscopy Hx of colonoscopy History of partial hysterectomy Family History Father Throat cancer Mother No problems noted. Brother No problems noted. Sister No problems noted. Sister No problems noted. Sister No problems noted. Sister Hyperlipidemia HTN (hypertension) Depression Myocardial infarction Daughter No problems noted. Daughter No problems noted. Daughter No problems noted. Daughter No problems noted. Paternal Aunt Rheumatoid arthritis Other Mental health disorder Substance use disorder Social History Housing: Apartment Alcohol intake: current Alcohol intake frequency: does not drink Alcohol type: wine Patient Tobacco Use Status: Former Tobacco user e-Cigarette/Vaping Use: Never Used Advance Directives Date on File: 01/15/23 service: No Current occupational status: unemployed Cognitive needs: No Hearing needs: No Vision needs: No Female Reproductive History Menstrual Total pregnancies: 5 Full term: 4 Number of Living Children: 3 Ab spontaneous: 1 Date of last pap smear: 11/02/18 Date of Mammogram: 08/20/23 (bi rad 2) Review of Systems Const All systems reviewed & are unremarkable except as noted in HPI and below Card Reports as per HPI and Reports no additional complaints Resp Reports as per HPI and Reports no additional complaints GI Reports as per HPI and Reports no additional complaints Reports as per HPI Physical Exam Const General: cooperative, healthy appearing and comfortable General: Yes bladder normal to palpation External Female Exam: No lesion Speculum Exam - Vagina: normal appearance of the vagina, normal vaginal discharge and not erythematous Speculum Exam - Cervix: Cervix absent Bimanual exam- vagina & uterus: bladder normal to palpation and uterus absent Bimanual Exam- Adnexa, other: Other (No masses detected) Assessment & Plan Assessment & Plan (1) Well woman exam: Code(s): Z01.419 - Encounter for gynecological examination (general) (routine) without abnormal findings Category: Medical Plan: Co testing not indicated no history of abnormal Pap smears since cervical dysplasia status post hysterectomy at age of 32 and since then adequate screening were negative, last co testing was in 2019 was negative Counseled the patient about the recommended dietary allowance of 1200 mg of Calcium & 800 IU of vitamin D. Instructions given the patient to schedule next screening Mammogram in 09/06. The patient was instructed to perform monthly self-breast exams and to schedule an annual exam in a year; All questions answered and the patient verbalized understanding. Orders: Orders MM tomosynthesis screening BI 3 Months Z12.31 - Encounter for screening mammogram for malignant neoplasm of breast Coding Level of Care Code Est Pt Prev Care >65y(95767) Diagnoses Well woman exam Z01.419
[2024-06-05 16:02] VITALS: BP 118/76; BMI 24.9
== END ==
LOC: HO.HWS 15:55
PROVIDERS: PCP Internal Medicine; Visit Provider Obstetrics & Gynecology
DX: Z01.419 Encounter for gynecological examination (general) (routine) without abnormal findings (principal)
CPT/HCPCS: 99397; 99459

== ENCOUNTER 2024-06-12 11:37 | Outpatient (AMB) | payer OTHER, SELFPAY ==
--- NOTE | 2024-06-12 12:00 | A.OFFVIS_ITS ---
Intake Visit Reasons: 3m/PVR Intake Note: Patient presents for follow up recurrent uti and incomplete bladder emptying Urology Medication: terazosin Blood Thinner: none PVR: 27ml's [employer] Supervisor Required: No Accompanied by: Self / Same As Patient Allergies prednisone Adverse Reaction (Intermediate, Verified 06/12/24 12:28) Anxiety Medication List - Last Reconciled 06/12/24 by SARAH Warren- bupropion HCl 1 tab PO DAILY diclofenac sodium 1% 2 grams topical BID PRN escitalopram oxalate 10 mg PO DAILY@1300 PRN gabapentin 1 tab PO DAILY geriatric hueyvruw-ynsz-wutk (Centravites 50 Plus tablet) 1 tab PO DAILY hydroxychloroquine 300 mg (1.5 x 200 mg) PO DAILY hyoscyamine sulfate 0.125 mg PO BID PRN lorazepam 0.5 mg PO DAILY PRN melatonin 10 mg PO BEDTIME PRN tacrolimus 0.1% 1 applic topical Q OTHER DAY [thumb spica wear nightly & as much as possible throughout the day] zolpidem 2.5 mg PO BEDTIME PRN HPI Comments Details: Jessa is a pleasant 69-year-old female patient of Dr. Soni who was accompanied by her granddaughter at today's office visit. She has a past medical history of anxiety, arthritis, bipolar, degenerative disc disease, diverticulitis, dyslipidemia, hypertension, GERD, history of cervical cancer, irritable bowel syndrome with constipation, neuropathy, osteopenia. She presents to the office today for follow-up regarding her recurrent urinary tract infections and incomplete bladder emptying. In discussion with the patient today she reports to be doing and feeling well. She reports compliance with terazosin as prescribed during last office visit as well as double voiding and feels this has been helpful. In office urinalysis results reviewed with the patient today. PVR 27ml's. Previous workup has included a retroperitoneal ultrasound 11/04 noting bilateral kidneys with no lesions and or hydronephrosis noted. Left kidney with probable 1 by 8 x 9 mm peripelvic cyst in the upper pole. No imaging follow-up recommended per radiology report. The bladder is well distended. Bladder wall upper normal in thickness measuring 4 mm. No stone or masses visualized. Pre void bladder volume is approximately 400 mL. Postvoid bladder volume is approximately 150 mL. When asked she denies urinary urgency, urinary frequency, incontinence, nocturia, hematuria, dysuria, foul smelling urine, changes to urinary stream, flank pain, fever, and or chills. She is happy with her current voiding parameters. She otherwise offers no other issues or concerns at this time. [facility] Medical History Venous insufficiency Right carotid bruit Diverticulitis Bipolar 1 disorder GERD (gastroesophageal reflux disease) History of cervical cancer Irritable bowel syndrome with constipation Weak urinary stream Surgical menopause Osteopenia Essential hypertension Dyslipidemia Anxiety Surgical History (Updated 06/05/24 @ 16:05 by Hira Christianson MD) History of cardiac cath Hx of esophagogastroduodenoscopy Hx of colonoscopy History of partial hysterectomy Family History Father Throat cancer Mother No problems noted. Brother No problems noted. Sister No problems noted. Sister No problems noted. Sister No problems noted. Sister Hyperlipidemia HTN (hypertension) Depression Myocardial infarction Daughter No problems noted. Daughter No problems noted. Daughter No problems noted. Daughter No problems noted. Paternal Aunt Rheumatoid arthritis Other Mental health disorder Substance use disorder Social History Housing: Apartment Alcohol intake: current Alcohol intake frequency: does not drink Alcohol type: wine Patient Tobacco Use Status: Former Tobacco user e-Cigarette/Vaping Use: Never Used Advance Directives Date on File: 01/15/23 service: No Current occupational status: unemployed Cognitive needs: No Hearing needs: No Vision needs: No Review of Systems Const Reports as per HPI Eyes Reports no additional complaints ENT Reports no additional complaints Card Reports as per HPI Resp Reports no additional complaints GI Reports as per HPI Reports as per HPI Musc Reports as per HPI Neuro Reports as per HPI Psych Reports as per HPI Albino/Lymph Reports no additional complaints Aller/Immun Reports no additional complaints Physical Exam Const General: cooperative, healthy appearing, comfortable, no acute distress, well developed, alert and awake Nutritional Appearance: average body habitus Orientation/consciousness: patient oriented x3 Limitations: no limitations HEENT Head: Yes normal to inspection, Yes normocephalic and Yes atraumatic Ears: hearing grossly normal bilaterally Eyes General: appearance normal, both eyes and all related structures Neck Neck: Yes normal visual inspection and Yes trachea midline Chest Chest palpation & inspection: normal inspection of the chest Resp Effort & Inspection: normal respiratory effort and able to speak in complete sentences Cardio Rate: regular rate GI Inspection: Yes normal to inspection General: Yes no CVA tenderness Back/Spine/Pelvis Back: no CVA tenderness Skin General skin exam: no rashes or lesions noted Neuro General: patient oriented x3 Extrem General: Yes normal to inspection Psych Appearance: grossly normal and well kempt Mental Status: mental status grossly normal Speech and movement: Normal speech and movement present and Clear speech present Affect: normal affect Attitude: cooperative Thought process: Normal thought process present Thought content: Normal thought content present Insight: Fair insight present (Psych) Judgement: Fair judgement present (Psych) Office Procedures Post Void Residual Post Residual Void Post Void Residual (PVR): 27 [id number]-Qzoy Void Residual by ultrasound Results AMB Urinalysis, Automated UA Leukoctes 15 Alexander/uL Last Edit by [employer] on 06/12/24 13:24 UA Nitrite Last Edit by [employer]ik Yak[employer] on 06/12/24 13:24 UA Urobilinogen 0.2 mg/dL Last Edit by [employer] on 06/12/24 13:24 UA Protein 0 mg/dL Last Edit by [employer] on 06/12/24 13:24 UA pH 7.0 Last Edit by [employer] on 06/12/24 13:24 UA Blood 0 Sivakumar/uL Last Edit by [employer] on 06/12/24 13:24 UA Specific [place] 1.010 Last Edit by [employer] on 06/12/24 13:24 UA Ketone Last Edit by [employer] on 06/12/24 13:24 UA Bilirubin 0 mg/dL Last Edit by [employer] on 06/12/24 13:24 UA Glucose 0 mg/dL Last Edit by [employer] on 06/12/24 13:24 Results Reviewed Results Reviewed: Laboratory Last Values Urine pH (Auto) 7.0 06/12/24 13:23 Specific [place] (Auto) 1.010 06/12/24 13:23 Urine Protein (Auto) 0 mg/dL 06/12/24 13:23 Glucose (UA)(Auto) 0 mg/dL 06/12/24 13:23 Urine Blood (Auto) 0 Sivakumar/uL 06/12/24 13:23 Urine Bilirubin (Auto) 0 mg/dL 06/12/24 13:23 Urine Urobilinogen (Auto) 0.2 mg/dL 06/12/24 13:23 Leukocyte Esterase (Auto) 15 Alexander/uL 06/12/24 13:23 Assessment & Plan Assessment & Plan (1) Renal cyst: Code(s): N28.1 - Cyst of kidney, acquired Category: Medical (2) Incomplete bladder emptying: Code(s): R33.9 - Retention of urine, unspecified Category: Medical Plan In office urinalysis results reviewed with the patient today; as noted above. PVR 27ml's She currently denies any bothersome urinary issues or concerns. She reports be happy with current voiding parameters. Will continue with 1 mg of terazosin at bedtime. Continue with double voiding. Follow-up in 4 months with PVR; or sooner with any issues, concerns, and or questions. Orders: Orders AMB Urinalysis Automated Today Z13.9 - Encounter for screening, unspecified AMB Post Void Residual by ultrasound Today R33.9 - Retention of urine, unspecified Patient Instructions: The patient had an opportunity to ask questions regarding the treatment plan. All questions were answered. Physical exam, labs, and imaging were discussed and reviewed in detail. As well as risks, benefits, and discussion of treatment choices. No major barriers to understanding were identified. The patient expressed understanding and agreement with the above treatment plan. The patient was made aware they should contact our office by phone for worsening of their current condition, the appearance of new symptoms, or with any quest ions or concerns. Compliance is encouraged with any medications and follow up testing that is ordered. It is a privilege to be allowed the opportunity to participate in? your urological care.? Again, if you have any questions or concerns If you have any questions or concerns please do not hesitate to contact me. The office is [phone]. This note is constructed using voice recognition software. While every effort has been made to ensure accuracy placement secretary errors may have been included. Yours sincerely, SARAH Warren-BC Coding Level of Care Code Est Pt Level 3 (68497) Complex EM visit Add On G2211 Diagnoses Renal cyst N28.1 Incomplete bladder emptying R33.9 CPT Codes Post Residual Void - PVR CPT Code: 17064-Qtlp Void Residual by ultrasound ([id number])
--- OUTSIDE RECORDS SUMMARY | 2024-06-12 13:20 | XMS_ITS | Encounter Summary ---
Author Organization [employer] Address [address] [facility] 7 [place] [address] Care Team Providers Care Pillowcase Cutter Name Role Phone Unavailable Primary Care Provider Unavailabl e Encounter Details Date Type Department Care Team (Latest Contact Info) Description 08/26/2020 Abstract [facility] CONVERSIONS Dental, Provider, DDS Social [...] as of this encounter Plan of Treatment Upcoming Encounters Date Type Department Care Team (Late st Contact Info) Description 07/05/2024 3:30 PM EDT Office Visit [facility] CHC ADULT DENTAL [address] [place] [address] Raffy Johnston, DANIEL [address] [place] [address] documented as of this encounter Visit Diagnoses Not on filedocumented in this encounter
--- OUTSIDE RECORDS SUMMARY | 2024-06-12 13:20 | XMS_ITS | Clinical Summary ---
Author Organization [employer] Address [address] [facility] [address] [place] [address] Care Team Providers Care Medical Scheduler Name Role Phone Unavailable Primary Care Provider [...] times daily. 1 g 3 4 Active Social History Tobacco Use Types Packs/Day Years [...] Mass Index - - Plan of Treatment Upcoming Encounters Date Type Department Care Team (Late st Contact Info) Description 07/05/2024 3:30 PM EDT Office Visit [facility] ADULT DENTAL [address] [place] [address] Raffy Johnston, DMD [address] [place] [address] Health Maintenance Due Date Last Done Comments CT Colonography 1955 Colonoscopy 1955 Colorectal Cancer Screening 1955 Depression Screening 1955 FIT DNA/Cologuard 1955 FIT 1955 FOBT 1955 Lipid Panel 1955 SDOH Screening 1955 Sigmoidoscopy 1954 Alcohol/Substance Use Screening 1966 Hepatitis C Screening 1972 DTaP/Tdap/Td Vaccines (1 - Tdap) 1973 Mammogram 1994 Zoster Vaccines (1 of 2) 2004 RSV Patients and Patients Aged 60 years or older (1 - Risk 60-74 years 1-dose series) 2014 Dental Oral Exam 08/25/2023 02/22/2023, , 01/31/2020, Additional history exists Dental X-Ray: Full Mouth 08/28/2023 021, 12/15/2012, 03/03/2012 COVID-19 Vaccine ( season) 2023 04/06/2023, 01/14/2022, 02/03/2021, Additional history exists Influenza Vaccine (#1) 2023 4, 01/14/2022, 12/20/2020, Additional history exists Dental X-Ray: Bitewings 02/24/2024 02/23/20, 08/26/2020, 01/31/2020, Additional history exists Dental Prophylaxis 02/25/2024 08/25/2023, 1 04/25/2022, 02/05/2020, Additional history exists Tobacco Screening 02/15/2025 02/16/2024 Pneumococcal Vaccine: 50+ Years Completed 04/06/2023, 08/14/2022, [...] Procedure Name Priority Date/Time Associated Diagnosis Comments PROPHYLAXIS - ADULT Routine 08/25/2023 2 :00 PM EDT BITEWINGS - 4 RADIOGRAPHIC IMAGES Routine 02/22/2023 2:00 PM EST PERIODIC ORAL EVALUATION - ESTABLISHED PATIENT Routine 02/22/2023 2:00 PM EST INTRAORAL - COMPLETE SERIES OF RADIOGRAPHIC IMAGES Routine 08/26/2020 12:00 AM EDT from Last 3 Months or Most Recently Relevant to Health Maintenance Insurance DENTAL - [facility]
--- OUTSIDE RECORDS SUMMARY | 2024-06-12 13:20 | XMS_ITS | Patient Health Record ---
Author Organization [facility] Address [address] [place] [address] Care Team Providers Care Burrer Hand Name Role Phone Osiris Soni MD Primary Care Provider Alban Gerard Jr Unavailable [phone] Allergies No Known Allergies Reason For Referral No Information Medications Medication SIG (Take, Route, Frequency, Duration) Notes [...] ORALLY DAILY Oral for 90 Active Ipratropium [place] 0.03 % USE 2 SPRAYS EACH NOSTRILS [...] each nostril Nasally Once a day Active Immunizations Vaccine Route Administration Date Status Comme nts Influenza Unknown 12/01/2017 Administered Influenza Unknown 11/14/2019 Administered Influenza Unknown 12/13/2020 Administered Influenza Unknown 12/30/2021 Administered Influenza Unknown 01/05/2023 Administered Social History Tobacco Use: Social History Observation Description Date Details (start date - stop date) Former Smoker NA - NA Tobacco Use/Smoking Question Answer Notes Patient is a former smoker How long has it been since you last smoked? > 10 years Problems Problem Type SNOMED Code ICD Code Onset Dates Problem Status W/U Status Risk Notes Problem 641924835 Colon cancer screening (Z12.11) Active confirmed Problem 065600531 Gastro-esophage al reflux disease without esophagitis (K21.9) Active confirmed Problem 655614583 Generalized abdominal pain (R10.84) Active confirmed Problem 83857261 Other dysphagia (R13.19) Active confirmed Problem Dysphagia (63037829) Dysphagia (R13.10) Active confirmed Problem 87200158 Constipation, unspecified constipation type (K59.00) Active confirmed Problem Gastritis (9887528) Gastritis (K29.70) Active confirmed Problem 89216362 Diarrhea, unspecified type (R19.7) Active confirmed Problem Gastroesophageal reflux disease (449239139) Esophageal reflux disease (K21.9) Active confirmed Problem 88488260 Gastric intestinal metaplasia (K31.A0) Active confirmed Vital Signs Temperature 98.0 degrees Fahrenheit 11/29/2023 Blood pressure diastolic 00 mm Hg 11/29/2023 Height 65.5 in 11/29/2023 Blood pressure systolic 000 mm Hg 11/29/2023 Weight 145 lbs 11/29/2023 BMI 23.76 kg/m2 11/29/2023 Encounters Encounter Location Date Provider Diagnosis [facility] [place] Out[place] [address], [place] [phone] 01/07/2024 Alban Lopez Jr Colon cancer screening Z12.11 and Family history of colon cancer Z80.0 [facility] [address] [place] [address] 11/29/2023 Alban John Toscano Gastro-esophageal reflux disease without esophagitis K21.9 ; Gastric intestinal metaplasia K31.A0 and Colon cancer screening Z12.11 Assessments Encounter Date Diagnosis (ICD Code) Assessment Notes Treatment Notes Treatment Clinical Notes Section Notes 01/07/2024 Colon cancer screening (ICD-10 - Z12.11) 01/07/2024 Family history of colon cancer (ICD-10 - Z80.0) 11/29/2023 Gastro-esophage al reflux disease without esophagitis (ICD-10 - K21.9) Currently, she is doing well. She will continue diet, lifestyle modifications, and weight management regarding the treatment of reflux. She is up-to-date on endoscopy. She is due for colonoscopy. We discussed risks and benefits of the today. She understands these and agrees to proceed. 11/29/2023 Gastric intestinal metaplasia (ICD-10 - K31.A0) Currently, she is doing well. She will continue diet, lifestyle modifications, and weight management regarding the treatment of reflux. She is up-to-date on endoscopy. She is due for colonoscopy. We discussed risks and benefits of the today. She understands these and agrees to proceed. 11/29/2023 Colon cancer screening (ICD-10 - Z12.11) Colonoscopy material was printed Currently, she is doing well. She will continue diet, lifestyle modifications, and weight management regarding the treatment of reflux. She is up-to-date on endoscopy. She is due for colonoscopy. We discussed risks and benefits of the today. She understands these and agrees to proceed. Plan Of Treatment Pending Test Test Name Order Date LIVER [...] Insured Coverage Start Date Coverage End Date [facility] [address] [address] [place] [address] [id number] MAGGIE PAULETTE Self - patient is the insured MEDICAID OF [facility] [address] [place] [address] [id number] PAULETTE SERRANO Self - patient is the insured Medical (General) History Medical History History ICD Code Hypertension bipolar disorder GERD, upper endoscopy 3, gastric intestinal metaplasia at one site, 2-3 year followup diverticulitis arthritis neuropathy Colonoscopy 01/31 benign cecal polyp, te n-year followup lupus Surgical History Surgery Date(Month/Year) hysterectomy 1985
--- OUTSIDE RECORDS SUMMARY | 2024-06-12 13:20 | XMS_ITS | Clinical Summary ---
Author Organization [facility] Address [address] [place] [address] Care Team Providers Care Gemologist Name Role Phone Osiris Soni MD Primary [...] Annual BMP Blood Test 02/26/2022 COVID-19 Vaccine (1 - 2023-2 5 season) 2023 Influenza Vaccine [...] age to complete this topic Care Teams Gemologist Relationship Specialty Start Date End Date Osiris Soni MD [address] [place] [address] PCP - General Internal Medicine 06/06/11
--- OUTSIDE RECORDS SUMMARY | 2024-06-12 13:20 | XMS_ITS | Encounter Summary ---
Author Organization [employer] Address [address] [facility] [address] [place] [address] Care Team Providers Care Underwriting Service Representative Name Role Phone Unavailable Primary Care Provider Unavailabl e Encounter Details Date Type Department Care Team (Latest Contact Info) Description 03/30/2019 Abstract [facility] CONVERSIONS Dental, Provider, DDS Social [...] Description 07/05/2024 3:30 PM EDT Office Visit [facility] CHC ADULT DENTAL [address] [place] [address] Raffy Johnston, DANIEL [address] [place] [address] documented as of this encounter Visit Diagnoses Not on filedocumented in this encounter
--- OUTSIDE RECORDS SUMMARY | 2024-06-12 13:20 | XMS_ITS ---
Author Organization [facility] Address [address] [place] [address] Care Team Providers Care Technical Director Name Role Phone Nae LILLY, Osiris Primary Care Provider Alban Gerard Jr [phone] REASON FOR VISIT screening Encounters Encounter Location Date Provider Diagnosis [facility] [place] [address] [place] [phone] 01/07/2024 Alban Lopez Jr Colon cancer screening Z12.11 and Family history of colon cancer Z80.0 Assessments Encounter Date Diagnosis (ICD Code) Assessment Notes Treatment Notes Treatment Clinical Notes Section Notes 01/07/2024 Colon cancer screening (ICD-10 - Z12.11) 01/07/2024 Family history of colon cancer (ICD-10 - Z80.0) Plan Of Treatment No Information Progress Notes * PAULETTE SERRANO MDOB:1955 (69 yo F)Acc No.[id number]:01/07/2024 COLON WITH MAC Patient:?PAULETTE SERRANO Provider:?Alban Lopez MD :1955???Age:68 Y???Sex:Female D ate:01/07/2024 Address:[address] [place] [address] [place], [place] Pcp:Osiris Soni MD Subjective: * Chief Complaints: * ???1. Screening. * Medical History:? Objective: * Vitals:? Assessment: * Assessment: 1.?Colon cancer screening - Z12.11 (Primary)???2.?Family history of colon cancer - Z80.0??? Plan: * Treatment: * Procedure Codes:?92672 DIAGN OSTIC COLONOSCOPY, 0529F INTRVL 3+YRS PTS CLNSCP DOCD, 0528F RCMND FLW-UP 10 YRS DOCD, Modifiers: 1P * * The named appointment provid er may or may not be the originator of this progress note, and it is not deemed complete until electronically signed by the appointment provider. Sign off status: Pending * Provider:?Alban Lopez MD Date:?1 Generated for Ye yepez/Jignesh/Chiloransmitting on:?06/12/2024 01:20 PM EDT
--- OUTSIDE RECORDS SUMMARY | 2024-06-12 13:20 | XMS_ITS ---
Author Organization [facility] Address [address] [place] [address] Care Team Providers Care Jacquard Plate Maker Name Role Phone Nae LILLY, Osiris Primary Care Provider Alban Gerard Jr Unavailable Allergies No Known Allergies REASON FOR VISIT Patient presents today for a colon screening Medications Medication SIG (Take, Route, Frequency, Duration) [...] Active methylPREDNISolone 4 MG PLEASE SEE [facility] FOR DETAILED DIRECTIONS Oral for 28 [...] ORALLY DAILY Oral for 90 Active Ipratropium [place] 0.03 % USE 2 SPRAYS EACH NOSTRILS 1-3 TIMES DAILY 15 MINUTES BEFORE MEALS Nasal for 90 Active Fluticasone Furoate 27.5 MCG/SPRAY 1 puff in each nostril Nasally Once a day Active Social History Tobacco Use: Social History Observation Description Date Details (start date - stop date) Former Smoker NA - NA Tobacco Use/Smoking Question Answer Notes Patient is a former smoker How long has it been since you last smoked? > 10 years Problems Problem Type SNOMED Code ICD Code Onset Dates Problem Status W/U Status Risk Notes Problem 82178880 Gastric intestinal metaplasia (K31.A0) Active confirmed Vital Signs Temperature 98.0 degrees Fahrenheit 11/29/19 24 Blood pressure systolic 000 mm Hg 11/29/19 24 Blood pressure diastolic 00 mm Hg 024 Height 65.5 in 11/29/2023 Weight 145 lbs 11/29/2023 BMI 23.76 kg/m2 11/29/2023 Encounters Encounter Location Date Provider [facility] [address] [place] [address] 11/29/2023 Alban Lopez Jr Gastro-esophageal reflux disease without esophagitis K21.9 ; Gastric intestinal metaplasia K31.A0 and Colon cancer screening Z12.11 Assessments Encounter Date Diagnosis (ICD Code) Assessment Notes Treatment Notes Treatment Clinical Notes Section Notes 11/29/2023 Gastro-esophage al reflux disease without esophagitis [...] and agrees to proceed. Plan Of Treatment Medication Medication Name Sig Start Date Stop Date Notes MiraLax (colon prep) 17 GM/SCOOP mixed with Gatorade or Crystal Light Orally begin at 5:00 p.m. the day before the procedure for 1 day 11/29/2023 Treatment Notes Assessment Notes Colon cancer screening Colonoscopy mater ial was printed Future Test Test Name Order Date COLONOSCOPY 11/29/2023 Next Appt Details Follow Up: 1 Year, Reason: Progress Notes * JESSA SERRANO MDOB:1955 (68 yo F)Acc No.[id number]:11/29/2023 Progress Notes Patient:?GUEVARA SERRANOMEN Cyril Provider:?Alban Lopez MD :1955???Age:68 Y???Sex:Female D ate:11/29/2023 Address:[address] [place], [place] [id number] Pcp:Osiris Soni MD Subjective: * Chief Complaints: * ???1. Patient presents today for a colon screening. * HPI: ???New symptom(s):? Jessa returns today for followup of gastroesophageal reflux disease and gastric intestinal metaplasia. Since we saw her last, she's been doing well. Her endoscopy last year showed only one site of metaplasia. Reflux symptoms have been under good control with diet. She hasn't required a proton pump inhibitor and is no longer using Levbid for irritable bowel syndrome. ?She does have a family history of colon cancer and is due for screening this year. She has no complaints of rectal bleeding or change in her bowel habits. * Medical History:?Hypertensio n, Bipolar disorder, GERD, upper endoscopy 11/11/22, gastric intestinal metaplasia at one site, 2-3 year followup, Diverticulitis, Arthritis, Neuropathy, Colonoscopy 01/31 benign cecal polyp, ten-year followup, Lupus. * Surgical History:?hysterecto my 1985. * Family History:?Father: dece ased.?Mother: .?Siblings: , at age 58, diagnosed with Colon cancer.? No family history of liver cancer, Sister of colon cancer. * Social History:?Tobacco Use:?Tobacco Use/Smoking?Patient is a?former smoker,?How long has it been since you last smoked??> 10 years.?Drugs/Alcohol:?Alcohol Screen?Points: 0, Interpretation: Negative.?Miscellaneous:?Marital status: . Occupation: unemployed. * Medications:?Taking Tamsulos in HCl 0.4 MG Capsule 1 capsule Orally Once a day, Taking Fluticasone Propionate (Inhal) 50 MCG/BLIST Aerosol Powder Breath Activated 1 puff Inhalation Twice a day, Taking Diclofenac Sod&Camphor-Menthol 1.5 & 4-10 % Therapy Pack as directed Externally , Taking tiZANidine HCl 2 MG Tablet 1 tablet as needed Orally Three times a day, Taking Centrum Silver 50+Women - Tablet as directed Orally , Taking LORazepam 0.5 MG Tablet 1 tablet at bedtime as needed Orally Once a day, Taking Melatonin 5 MG Tablet 1 tablet in the evening Orally Once a day, Taking Escitalopram Oxalate 10 MG Tablet 1 tablet Orally Once a day, Taking Amitriptyline HCl 10 MG Tablet 1 tablet at bedtime Orally Once a day, Taking Zolpidem Tartrate 10 MG Tablet 1 tablet at bedtime as needed Orally Once a day, Taking hydrOXYzine HCl 10 MG Tablet 1 tablet as needed Orally BID, Taking Gabapentin 300 MG Capsule 1 capsule Orally three x a day, Taking Fluticasone Furoate 27.5 MCG/SPRAY Suspension 1 puff in each nostril Nasally Once a day, Taking buPROPion HCl 75 MG Tablet 1 tablet Orally Twice a day, Taking Vitamin D 1000 UNIT Tablet 1 tablet Orally Once a day, Taking Hydroxychloroquine Sulfate 200 MG Tablet TAKE 1 AND 1/2 TABLET ORALLY DAILY Oral , Taking Ipratropium [place] 0.03 % Solution USE 2 SPRAYS EACH NOSTRILS 1-3 TIMES DAILY 15 MINUTES BEFORE MEALS Nasal , Taking Loratadine 10 MG Tablet TAKE 1 TABLET BY MOUTH EVERY DAY Oral , Taking methylPREDNISolone 4 MG Tablet PLEASE SEE ATTACHED FOR DETAILED DIRECTIONS Oral , Medication List reviewed and reconciled with the patient * Allergies:?N.K.D.A. Objective: * Vitals:?Wt: 145 lbs, Ht: 65. 5 in, BMI:23.76 Index, BP: 000/00 mm Hg, Temp: 98.0. * Examination: ???General Examination: ???On examination today, she appears well. Skin is anicteric. Lungs are clear. Heart shows regular rate. Abdomen is soft without focal mass or tenderness. Extremities are without edema. Assessment: * Assessment: 1.?Gastro-esophageal reflux disease without esophagitis - K21.9 (Primary)?2.?Gastric intestinal metaplasia - K31.A0?3.?Colon cancer screening - Z12.11? Currently, she is doing well . She will continue diet, lifestyle modifications, and weight management regarding the treatment of reflux. She is up-to-date on endoscopy. She is due for colonoscopy. We discussed risks and benefits of the today. She understands these and agrees to proceed. Plan: * Treatment: 2.?Colon cancer screening?Procedure: COLONOSCOPY (Ordered for 11/29/2023) Notes: Colonoscopy material was printed?? * Procedure Codes:?3017F COLOR ECTAL CA SCREEN DOC REV, G9903 Pt scrn tbco id as non user, G9744 PATIENT NOT ELIG D/T ACTIVE DX HTN * Preventive Medicine:? ??Urinary Incontinence:?Urinary Incontinence?Assessment:?Present,?Plan of care documented:?No, reason not specified.? ??Screenings:?Fall Risk Screening?Fall Risk Assessment:?One fall without injury in the past year.? * Follow Up:?1 Year * * Sign off status: Completed true * Provider:?Alban Lopez MD Date:?0 11/29/2023 Generated for Ye yepez/Jignesh/eTkurtsmbrenda on:?06/12/2024 01:20 PM EDT History and Physical Notes * HPI (History of Present Illness) Category Sub-Category Detail Notes Category Not es New symptom(s) Jessa returns today for followup of gastroesophageal reflux disease and gastric intestinal metaplasia. Since we saw her last, she's been doing well. Her endoscopy last year showed only one site of metaplasia. Reflux symptoms have been under good control with diet. She hasn't required a proton pump inhibitor and is no longer using Levbid for irritable bowel syndrome. She does have a family history of colon cancer and is due for screening this year. She has no complaints of rectal bleeding or change in her bowel habits. Examination Category Sub-Category Detail Notes Category Not es General Examination On exami nation today, she appears well. Skin is anicteric. Lungs are clear. Heart shows regular rate. Abdomen is soft without focal mass or tenderness. Extremities are without edema.
--- OUTSIDE RECORDS SUMMARY | 2024-06-12 13:21 | XMS_ITS ---
Author Name Jenae Larson NP Address [address] [place] [address] Phone [phone] Organization [facility] Care Team Providers Care Project Management Instructor Name Role Phone Jenae Larson Unavailable [phone] Alban Lopez Unavailable [phone] Reason for Referral Not Available Allergies, adverse [...] 7 days. 2023-02-23 No Data Available Ipratropium [place] 0.03 % Solution USE 2 SPRAYS EACH NOSTRILS 1-3 TIMES DAILY 15 MINUTES BEFORE MEALS 2023-05-06 No Data Available Diclofenac Sodium 1 % Gel 4 grams topica lly to affected area 4 times per day PRN 2023-07-09 No Data Available Loratadine 10 mg Tab TAKE 1 TABLET BY MO [facility] EVERY DAY 2023-07-27 No Data Available Escitalopram Oxalate 20 mg Tab No Data Available 06-10 No Data Available Triamcinolone Acetonide 0.1 % Oint No Data Available 2022-08-20 No Data Available Hydroxychloroquine Sulfate 2 00 mg Tab TAKE 1 AND 1/2 TABLETS BY MOUTH EVERY DAY 2023-08-19 No Data Available Terazosin 1 mg Cap TAKE 1 CAPSULE BY MO [facility] EVERYDAY AT BEDTIME 2023-12-14 No Data Available [...] Active 2023-08-30 N/A Other problems related to [facility] facilities and other health care Active 2023-08-30 N/A Vaginal yeast infection Resolved 2023-02-232023 Sinus congestion Resolved 2022-10-20 2023-08-30 Pinched nerve Resolved 2023-01-05 2023-08-30 Rheumatoid arthritis with Im munodeficiency due to conditions classified elsewhere Active 2022-10-15 N/A Sinusitis Active 2024-04-11 N/A Encounters Encounters Type Facility Date of Service Diagnosis/Co mplaint No Data Available [facility] Other specified disorders of nose and nasal sinuses No Data Available [facility] No Data Available [facility] No Data Available [facility] No Data Available [facility] No Data Available [facility] No Data Available [facility] New patient,40-59min; chronic exacerbation, 2 stable chronic or 1 acute illness add add modifier 95 for video (do not use for phone, instead use 91544-00) [facility] [place]2022 Rheumatoid arthritis, unspecifiedUlcerative colitis, unspecified, without complicationsAtopic dermatitis, unspecifiedRash and other nonspecific skin eruptionEssential (primary) hypertensionBipolar II disorderGastritis, unspecified, without bleedingDorsalgia, unspecifiedRetention of urine, unspecifiedRepeated fallsGastro-esophageal reflux disease without esophagitisOld myocardial infarction New patient,40-59min; chronic exacerbation, 2 stable chronic or 1 acute illness add add modifier 95 for video (do not use for phone, instead use 21086-91) [facility] [place] New patient,40-59min; chronic exacerbation, 2 stable chronic or 1 acute illness add add modifier 95 for video (do not use for phone, instead use 34940-22) [facility] [place] New patient,40-59min; chronic exacerbation, 2 stable chronic or 1 acute illness add add modifier 95 for video (do not use for phone, instead use 93644-09) [facility] [place] New patient,40-59min; chronic exacerbation, 2 stable chronic or 1 acute illness add add modifier 95 for video (do not use for phone, instead use 62107-09) [facility] New patient,40-59min; chronic exacerbation, 2 stable chronic or 1 acute illness add add modifier 95 for video (do not use for phone, instead use 22148-66) [facility] New patient,40-59min; chronic exacerbation, 2 stable chronic or 1 acute illness add add modifier 95 for video (do not use for phone, instead use 35136-09) [facility] New patient,40-59min; chronic exacerbation, 2 stable chronic or 1 acute illness add add modifier 95 for video (do not use for phone, instead use 22052-47) [facility] No Data Available [facility]2023 Mononeuropathy, unspecified No Data Available [facility]2023 Essential (primary) hypertensionBipolar II disorderOld myocardial infarctionRheumatoid arthritis, unspecifiedGastritis, unspecified, without bleedingUlcerative colitis, unspecified, without complicationsDorsalgia, unspecifiedAtopic dermatitis, unspecifiedRash and other nonspecific skin eruptionRetention of urine, unspecifiedRepeated fallsGastro-esophageal reflux disease without esophagitisNasal congestionMononeuropathy, unspecified No Data Available [facility]23 No Data Available [facility] No Data Available [facility] No Data Available [facility] [place] No Data Available [facility] No Data Available [facility] [place] 02[place]2023 Ulcerative colitis, unspecif ied, without complicationsGastritis, unspecified, without bleedingGastro-esophageal reflux disease without esophagitisRetention of urine, unspecifiedUnspecified urinary incontinenceOveractive bladder No Data Available [facility] [place] 02[place]2023 Acute candidiasis of vulva a nd vaginaEncntr for general adult medical exam w/o abnormal findingsEssential (primary) hypertension No Data Available [facility] [place] No Data Available [facility] [place] No Data Available [facility] [place] No Data Available [facility] [place] No Data Available [facility] [place] 06[place]2023 Rheumatoid arthritis, unspec ified No Data Available [facility] [place]2023 Rheumatoid arthritis, unspec ified No Data Available [facility] [place] 07[place]2023 No Data Available [facility] [place] No Data Available [facility] [place] No Data Available [facility] [place]2023 Rheumatoid arthritis, unspec ified No Data Available [facility] [place] 07[place]23 No Data Available [facility] [place] Estab. patient 30-39min; chronic exacerbation, 2 stable chronic or 1 acute illness add add modifier 95 for video, (do not use for phone, instead use 25836-52) [facility] [place]2023 Essential (primary) hypertensionBipolar II disorderOld myocardial [...] (do not use for phone, instead use 36547-41) [facility] [place]20[place] Estab. patient 30-39min; chronic exacerbation, 2 stable chronic or 1 acute illness add add modifier 95 for video, (do not use for phone, instead use 71481-23) [facility] [place] Estab. patient 30-39min; chronic exacerbation, 2 stable chronic or 1 acute illness add add modifier 95 for video, (do not use for phone, instead use 39112-62) [facility] [place]20[place] Estab. patient 30-39min; chronic exacerbation, 2 stable chronic or 1 acute illness add add modifier 95 for video, (do not use for phone, instead use 73073-17) [facility] [place] Estab. patient 30-39min; chronic exacerbation, 2 stable chronic or 1 acute illness add add modifier 95 for video, (do not use for phone, instead use 30998-90) [facility] [place] Estab. patient 30-39min; chronic exacerbation, 2 stable chronic or 1 acute illness add add modifier 95 for video, (do not use for phone, instead use 85510-67) [facility] [place] Estab. patient 30-39min; chronic exacerbation, 2 stable chronic or 1 acute illness add add modifier 95 for video, (do not use for phone, instead use 49039-46) [facility] [place] Estab. patient 30-39min; chronic exacerbation, 2 stable chronic or 1 acute illness add add modifier 95 for video, (do not use for phone, instead use 70676-45) [facility] [place] Estab. patient 30-39min; chronic exacerbation, 2 stable chronic or 1 acute illness add add modifier 95 for video, (do not use for phone, instead use 43056-71) [facility] [place] Estab. patient 10-29min; 1 minor problem; add add modifier 95 for video, modifier 93 for phone [facility] [place] 04[place]/2024 Chronic sinusitis, unspecifi ed Estab. patient 10-29min; 1 minor problem; add add modifier 95 for video, modifier 93 for phone [facility] [place] 04/[place] Estab. patient 10-29min; 1 minor problem; add add modifier 95 for video, modifier 93 for phone [facility] [place] Estab. patient 10-29min; 1 minor problem; add add modifier 95 for video, modifier 93 for phone [facility] [place] [facility] Estab. patient 10-29min; 1 minor problem; add add modifier 95 for video, modifier 93 for phone [facility], [place] 04/14/2024 Essential (primary) hypertensionBipolar [...] 95 for video, modifier 93 for phone [facility], [place] 04/14/20[place] Estab. patient 10-29min; 1 minor problem; add add modifier 95 for video, modifier 93 for phone [facility] [place] 04/14/20[place] Estab. patient 10-29min; 1 minor problem; add add modifier 95 for video, modifier 93 for phone [facility], [place] 04/14/2024 Estab. patient 10-29min; 1 minor problem; add add modifier 95 for video, modifier 93 for phone [facility] [place] Estab. patient 10-29min; 1 minor problem; add add modifier 95 for video, modifier 93 for phone [facility] [place] Estab. patient 10-29min; 1 minor problem; add add modifier 95 for video, modifier 93 for phone [facility] [place] Acute candidiasis [...] date Servicing provider Phone# No Data Available [id number] 2022-10-20 No Data Available No Data Available [...] (do not use for phone, instead use 81294-99) [id number] 2022-10-15 No Data Available No Data Availa [...] No Data Avail able No Data Available [id number] 2023-01-05 No Data Available No Data Available No Data Available [id number] 2023-01-16 No Data Available No Data Available [...] No Data Anastacia ilable No Data Available [id number] 2023-02-03 No Data Available No Data Available [...] (do not use for phone, instead use 69197-26) [id number] 2023-08-30 No Data Available No Data Availa [...] 95 for video, modifier 93 for phone [id number] 2024-04-12 No Data Available No Data Availa ble No Data Available [id number] 2024-04-12 No Data Available No Data Available SBP >= 140 3077F 2024-04-12 No Data Available No Data Available DBP <80 (3078F) 3078F 2024-04-12 No Data Available No Data Available Estab. patient 10-29min; 1 minor problem; add add modifier 95 for video, modifier 93 for phone [id number] 2024-04-14 No Data Available No Data Availa [...] 95 for video, modifier 93 for phone [id number] 2024-05-09 No Data Available No Data Availa [...] stool max 4 times daily #30 capsule [id number] New Dicyclomine 20 mg Tab TAKE 1 TABLET BY MOUTH AC/HS for stomach pain/spasms #60 tablet [id number] New Ondansetron 8 mg Tab Disintegrating 1 [...] sara-care- personal hygiene wipes- hand soap and media sales consultant as per prior order- box of medium gloves- to follow up with pillowcase folder and PCP for further monitoring and management hx: 10/15/22: Reports urinary retention and managed with Flomax1. Dz management discussed2. Continue to follow up with PCP 2023-02-23 11:16:05 New Diflucan 150 mg Tab Take 1 tablet PO. May take 1 tablet 72 hours later if symptoms have not improved. #2 tablet [id number] Miconazole Nitrate 2 % Crm Vaginal Apply to affected area daily x 7 days. #1 applicator [id number] (patient, parent, or guardian); 11-20 minutes of [...] Documented (1125F)Continue to see PCP. Follow-up with [facility] as needed for any acute or disease [...] for and report early any s/s of qzomlvjvc56/22/23- continue plan of care and conservative measures eRx New Loperamide 2 mg Cap 2 tablets after first loose stool, then take 1 tablet after each loose stool max 4 times daily #30 capsule [id number] New Dicyclomine 20 mg Tab TAKE 1 TABLET BY MOUTH AC/HS for stomach pain/spasms #60 tablet [id number] New Ondansetron 8 mg Tab Disintegrating 1 [...] sara-care- personal hygiene wipes- hand soap and media sales consultant as per prior order- box of medium gloves- to follow up with pillowcase folder and PCP for further monitoring and management [...] they most likely to go back?Please call [facility] if you have a change in [...] for phoneContinue to see PCP. [facility] [place] [facility] or disease [...] Follow up with Psychiatry for provider assignment10/15/22: [facility] done in 09/2022. No interventions.1. F/u [...] for and report early any s/s of zlhlnuwty40/22/23- continue plan of care and conservative measures eRx New Loperamide 2 mg Cap 2 tablets after first loose stool, then take 1 tablet after each loose stool max 4 times daily #30 capsule [id number] New Dicyclomine 20 mg Tab TAKE 1 TABLET BY MOUTH AC/HS for stomach pain/spasms #60 tablet [id number] New Ondansetron 8 mg Tab Disintegrating 1 [...] sara-care- personal hygiene wipes- hand soap and media sales consultant as per prior order- box of medium gloves- to follow up with pillowcase folder and PCP for further monitoring and management [...] they most likely to go back?Please call [facility] if you have a change in [...] for phoneContinue to see PCP. [facility] [place] [facility] for any acute or disease education needs that may arise 05/10.Diflucan 150 mg Tab Take 1 tablet PO. May take 1 tablet 72 hours later if symptoms have not improved. #2 tablet [id number] underwearNotify for persistant symptoms. Goals Date Goal [...]
== END 2024-06-12 12:29 | disposition home or self-care (01) ==
LOC: HO.HUSH 11:38
PROVIDERS: PCP Internal Medicine; Visit Provider Nurse Practitioner Family
DX: N28.1 Cyst of kidney, acquired (principal); R33.9 Retention of urine, unspecified; Z13.9 Encounter for screening, unspecified
CPT/HCPCS: 99213; G2211

== ENCOUNTER → 2024-06-12 11:37 | Outpatient (BNVA) | payer OTHER, SELFPAY | PROVIDERS: PCP Internal Medicine; Visit Provider Nurse Practitioner Family | DX: N28.1 Cyst of kidney, acquired (principal); R33.9 Retention of urine, unspecified | CPT/HCPCS: 51798; 81003; 99212 ==

== ENCOUNTER 2024-07-13 15:29 | Outpatient (AMB) | payer OTHER, SELFPAY ==
[2024-07-13 15:33] VITALS: BP 160/72; PULSE 82; O2SAT 97; BMI 25.5
--- NOTE | 2024-07-13 15:33 | A.OFFVIS_ITS ---
Vital Signs 07/13/24 15:33 Height 5 ft 4 in Weight 148 lb 12.992 oz BMI 25.5 BP 160/72 H Blood Pressure Location Rt brachial Position Sitting Pulse 82 Pulse Source Pulse Oximeter Pulse Oximetry (%) 97 Oxygen Delivery Method Room Air Intake Visit Reasons: copd Allergies prednisone Adverse Reaction (Intermediate, Verified 07/13/24 16:13) Anxiety Medication List - Last Reconciled 07/13/24 by Price Elmore MD ascorbate calcium (vitamin C) 500 mg PO DAILY bupropion HCl 1 tab PO DAILY calcium carbonate-vitamin D3 600 mg-12.5 mcg (500 unit) (Calcium with Vit D3) caps PO diclofenac sodium 1% 2 grams topical BID PRN escitalopram oxalate 10 mg PO DAILY@1300 PRN gabapentin 1 tab PO DAILY geriatric satlibwd-tzzj-[id number] (Centravites 50 Plus tablet) 1 tab PO DAILY hydroxychloroquine 300 mg (1.5 x 200 mg) PO DAILY hyoscyamine sulfate 0.125 mg PO BID PRN lorazepam 0.5 mg PO DAILY PRN melatonin 10 mg PO BEDTIME PRN tacrolimus 0.1% 1 applic topical Q OTHER DAY terazosin 1 mg PO BEDTIME 90 days [thumb spica wear nightly & as much as possible throughout the day] zolpidem 2.5 mg PO BEDTIME PRN Do you need a note to return to daycare/school/sports/work: No HPI HPI copd: Details: THIS PATIENT IS 69 YEARS OLD RELATIVELY ANXIOUS, BEING SEEN BY ME FOR THE 1ST TIME BECAUSE OF, SHORTNESS OF BREATH ON EXERTION AND SOMETIMES EVEN AT REST. THIS HAS BEEN GOING ON FOR QUITE A FEW YEARS, SHE HAS HAD ALBUTEROL INHALER IN THE PAST AND ADVISED TO USE IT ONLY P.R.N. BUT AT PRESENT SHE DOES NOT HAVE ANY INHALER. SHE COMPLAINS OF MULTIPLE ALLERGIES AROUND THE YEAR, CAUSING NASAL CONGESTION. RECENTLY SEEN BY HER ALLERGY SPECIALISTS WHO WANTED HER TO HAVE PULMONARY EVALUATION BEFORE THE COULD DO SKIN TESTING AND TREATMENT PLANNING FOR HER ALLERGIES. SYMPTOMATICALLY I THINK SHE JUST HAS CHRONIC NONSPECIFIC MIXED TYPE OF IN VIRAL MENTAL ALLERGIES. SHE HAD HISTORY OF SLEEP PROBLEM AT NIGHT, IN 2020 SHE HAD A HOME-BASED SLEEP STUDY ORDERED BY HER MONONITROTOLUENE OPERATOR. SHE WAS FOUND TO HAVE A MILD DEGREE OF ALONZO MAINLY IN SUPINE POSITION. SHE WAS ORDERED A CPAP DEVICE. BUT SHE COULD NOT USE THE CPAP AT ALL . IT WAS SUGGESTED THAT SHE COULD TALK TO HER DENTIST IF, SHE COULD BE TREATED WITH YUNIEL DENTAL DEVICE, BUT HER DENTIST TOLD HER THAT SHE CAN BUYS SOME BRACE [id number]. ANYWAY SHE HAS NOT USED ANY YUNIEL DENTAL DEVICE. IT SHOULD BE NOTED THAT SHE IS NOT AN OVERWEIGHT INDIVIDUAL. RESTORE RESPECTIVELY I THINK I WOULD HAVE TREATED HER WITH CONSERVATIVE MEASURES ESPECIALLY POSITION THERAPY. ANYWAY TODAY SHE COMES TO SEE ME BECAUSE OF HER DYSPNEA ON EXERTION, SHE GETS SHORT OF BREATH WHEN SHE WALKS IN THE HOUSE GOING UP STAIRS OR WHEN SHE WALKS OUTDOORS ON AN INCLINE. SHE HAS NOT WALKED ANY. LONG DISTANCES SHE HAS ONLY MILD INTERMITTENT COUGH BUT DENIES ANY WHEEZING EPISODES. SHE HAD A SPIROMETRY IN THE OFFICE ON MAY 22, 2024. THE NUMBERS ARE CONSISTENT WITH MODERATE DEGREE OF RESTRICTIVE PULMONARY DISORDER AND NO SIGNIFICANT OBSTRUCTIVE DISORDER CURRENTLY SHE IS BEING TREATED FOR SYSTEMIC LUPUS ERYTHEMATOSUS, WITH HYDROCHLOROQUINE . SHE HAS HISTORY OF SMOKING IN THE REMOTE PAST BUT QUIT MORE THAN 15 YEARS AGO. [facility] REVIEWED AND I NOTICED THAT SHE HAS DIAGNOSIS OF CHRONIC ANXIETY, DEPRESSION, AND BIPOLAR DISORDER. [facility] Medical History (Updated 07/13/24 @ 16:39 by Price Elmore MD) Allergic rhinitis Dyspnea on exertion Restrictive lung disease Venous insufficiency Right carotid bruit Diverticulitis Bipolar 1 disorder GERD (gastroesophageal reflux disease) History of cervical cancer Irritable bowel syndrome with constipation Weak urinary stream Surgical menopause Osteopenia Essential hypertension Dyslipidemia Anxiety Surgical History History of cardiac cath Hx of esophagogastroduodenoscopy Hx of colonoscopy History of partial hysterectomy Family History Father Throat cancer Mother No problems noted. Brother No problems noted. Sister No problems noted. Sister No problems noted. Sister No problems noted. Sister Hyperlipidemia HTN (hypertension) Depression Myocardial infarction Daughter No problems noted. Daughter No problems noted. Daughter No problems noted. Daughter No problems noted. Paternal Aunt Rheumatoid arthritis Other Mental health disorder Substance use disorder Social History Housing: Apartment Alcohol intake: current Alcohol intake frequency: does not drink Alcohol type: wine Patient Tobacco Use Status: Former Tobacco user e-Cigarette/Vaping Use: Never Used Advance Directives Date on File: 01/15/23 service: No Current occupational status: unemployed Cognitive needs: No Hearing needs: No Vision needs: No Review of Systems Const All systems reviewed & are unremarkable except as noted in HPI and below Eyes Reports no additional complaints ENT Reports nasal congestion (FREQUENT) and Reports nasal obstruction (PARTIAL.) Card Denies chest pain, Denies irregular heart rhythm and Denies leg edema Resp Reports as per HPI GI Reports abdominal pain and Reports other (HISTORY OF DIVERTICULITIS) Reports no additional complaints Musc Reports myalgias Skin/Breast Reports dry skin (MINOR RED SPOTS) Neuro Reports no additional complaints Psych Reports anxiety and Reports depression Endo Reports no additional complaints Albino/Lymph Reports no additional complaints Physical Exam Vital Signs: Last Vital Signs Pulse 82 07/13/24 15:33 BP 160/72 H 07/13/24 15:33 Pulse Ox 97 07/13/24 15:33 Oxygen Delivery Method Room Air 07/13/24 15:33 BMI result Body Mass Index 25.5 Const General: healthy appearing, comfortable, no acute distress, alert and awake Orientation/consciousness: patient oriented x3 HEENT Head: Yes normal to inspection General nose exam: No nasal polyps present, No nasal discharge present and Abnormal mucous membranes and turbinates present (MODERATE HYPERTROPHY OF THE NASAL TURBINATES) Face and sinus: Yes sinuses nontender Mouth: oropharynx normal Throat: Yes posterior oropharynx normal Eyes General: appearance normal, both eyes and all related structures Neck Neck: Yes normal visual inspection, Yes no lymphadenopathy, Yes trachea midline and Yes no JVD Thyroid: Thyroid normal Chest Chest palpation & inspection: normal inspection of the chest, normal palpation of entire chest wall and no tenderness Resp Other: PERCUSSION NOTE IS RESONANT. BREATH SOUNDS ARE MODERATELY DIMINISHED WITH SLIGHT. PROLONGATION OF THE EXPIRATORY PHASE NO WHEEZES RHONCHI OR CREPITATIONS ARE HEARD. Cardio Palpation: normal PMI Rate: regular rate Rhythm: regular rhythm Heart sounds: no gallops and no murmurs GI Palpation (GI): Soft to palpation, nontender, No hepatosplenomegaly present and no masses Auscultation: normal bowel sounds Back/Spine/Pelvis Thoracic/Lumbar Spine: thoracic and lumbar spine normal to inspection Skin General skin exam: no rashes or lesions noted Neuro General: patient oriented x3 and no focal motor deficits Cranial nerves: Yes CN's II-XII intact bilaterally Extrem General: Yes normal to inspection, Yes no clubbing, cyanosis or edema and Yes no calf tenderness Psych Appearance: grossly normal and well kempt Speech and movement: Normal speech and movement present Affect: Anxious affect present Results Reviewed Results Reviewed: CHEST X-RAY 04/10/2024 UNREMARKABLE SPIROMETRY ON 05/22/2024 FVC= 53 % FEV1= 55 % FEF 25-75 = % C/W RESTRICTIVE PULMONARY DISORDER, MODERATELY SEVERE. CBC ON MANY OCCASIONS HAS SHOWN SIGNIFICANT EOSINOPHILIA, LAST CBC ON 04/07/2024 EIOSIN COUNT= 7.4 Assessment & Plan Assessment & Plan (1) ALONZO (obstructive sleep apnea): Comment: DIAGNOSED TO HAVE OBSTRUCTIVE SLEEP APNEA IN 2020. COULD NOT USE THE CPAP. I REVIEWED THE RESULTS AND ALONZO WAS MILD, MOSTLY POSITIONAL, IN SUPINE POSITION. PATIENT IS NOT OVERWEIGHT Code(s): G47.33 - Obstructive sleep apnea (adult) (pediatric) Category: Medical Plan: I THINK THE PATIENT SHOULD TRY TO SLEEP IN LATERAL POSITION AND AVOID SLEEPING IN SUPINE POSITION. HER SLEEP ISSUES ARE MORE DUE TO HER CHRONIC ANXIETY DISORDER, THAN DUE TO OBSTRUCTIVE SLEEP APNEA. (2) Restrictive lung disease: Comment: CHEST. X-RAY IS NORMAL SPIROMETRY RESULTS ARE POINTING TO MODERATELY SEVERE RESTRICTIVE PULMONARY DISORDER, THIS MAY HAVE BEEN DUE TO POOR EFFORT POOR GENERAL STRENGTH. Code(s): J98.4 - Other disorders of lung Category: Medical Plan: SHE IS INSTRUCTED TO DO DEEP BREATHING EXERCISES, NEEDS A REPEAT PULMONARY FUNCTION TEST FOR WHICH SHE IS BEING SCHEDULED (3) Dyspnea on exertion: Comment: DYSPNEA ON EXERTION IS DUE TO COMBINATION OF RESTRICTIVE LUNG DISEASE, AND POOR PHYSICAL CONDITIONING. DOES NOT SEEM TO HAVE ANY BRONCHOSPASTIC DISORDER. BUT SHE CAN USE ALBUTEROL INHALER ON A P.R.N. BASIS , I SENT A PRESCRIPTION FOR HER TO THE PHARMACY. Code(s): R06.09 - Other forms of dyspnea Category: Medical Plan: MAY USE ALBUTEROL HFA 1 OR 2 PUFFS Q.6 HOURS P.R.N. (4) Allergic rhinitis: Comment: SHE HAS CHRONIC ALLERGIC TYPE RHINITIS, IT MAY BE DUE TO MULTIPLE ENVIRONMENTAL ALLERGIES. I NOTICE THAT SHE HAS CHRONIC EOSINOPHILIA WHICH POINTS TO ALLERGIC COMPONENT . Code(s): J30.9 - Allergic rhinitis, unspecified Category: Medical Plan: PATIENT IS SEEING ALLERGY SPECIALISTS AND I THINK SHE CAN HAVE COMPLETE WORKUP, FOLLOWED BY APPROPRIATE TREATMENT. IN THE MEANTIME IS OKAY TO USE LORATADINE 10 MG ONCE A DAY P.R.N. Orders: Orders PFT pulmonary function test Today J30.9 - Allergic rhinitis, unspecified, J98.4 - Other disorders of lung, R06.09 - Other forms of dyspnea Medications: New albuterol sulfate 90 mcg/actuation 1 inh inhalation QID 30 days PRN 6.7 grams 2RF shortness of breath or wheezing Coding Level of Care Code New Pt Level 4 (96642) Diagnoses ALONZO (obstructive sleep apnea) G47.33 Restrictive lung disease J98.4 Dyspnea on exertion R06.09 Allergic rhinitis J30.9
--- OUTSIDE RECORDS SUMMARY | 2024-07-13 17:14 | XMS_ITS | Encounter Summary ---
Author Organization [employer] Address [address] [facility] [address] [place] [address] Care Team Providers Care Video Clerk Name Role Phone Unavailable Primary Care Provider Unavailabl e Encounter Details Date Type Department Care Team (Latest Contact Info) Description 08/26/2020 Abstract [facility] CONVERSIONS Dental, Provider, DDS Social History [...] Care Team (Late st Contact Info) Description 08/23/2024 1:30 PM EDT Office Visit [facility] [address] [place] [address] Raffy Johnston, DANIEL [address] [place] [address] documented as of this encounter Visit Diagnoses Not on filedocumented in this encounter
--- OUTSIDE RECORDS SUMMARY | 2024-07-13 17:14 | XMS_ITS | Clinical Summary ---
Author Organization [employer] Address [address] [facility] [address] [place] [address] Care Team Providers Care Head Start Coordinator Name Role Phone Unavailable Primary Care Provider [...] times daily. 1 g 3 4 Active Active Problems Problem Noted Date Diagnosed Date Lupus (systemic lupus erythematosus) 07/05/2024 Encounters Date Type Department Care Team Description 07/05/2024 3:30 PM EDT Office Visit [facility] [address] [place] [address] Raffy Johnston DMD Systemic lupus erythematosus, unspecified SLE type, unspecified organ involvement status (CMS/HCC) (Primary Dx) from Last 3 Months Social History Tobacco [...] Description 08/23/2024 1:30 PM EDT Office Visit [facility] [address] [place] [address] Raffy Johnston DMD [address] [place] [address] Health Maintenance Due Date Last Done Comments [...] 04/25/2022, 02/05/2020, Additional history exists Tobacco Screening 07/05/2025 07/05/2024 Pneumococcal Vaccine: 50+ Years Completed 04/06/2023, 08/14/2022, [...] Procedure Name Priority Date/Time Associated Diagnosis Comments RE-EVAL - POST-OP OFFICE VISIT Routine 07/05/2024 3:30 PM EDT PROPHYLAXIS - ADULT Routine 08/25/2023 2 :00 PM EDT BITEWINGS - 4 RADIOGRAPHIC IMAGES Routine 02/22/2023 2:00 PM EST PERIODIC ORAL EVALUATION - ESTABLISHED PATIENT Routine 02/22/2023 2:00 PM EST INTRAORAL - COMPLETE SERIES OF RADIOGRAPHIC IMAGES Routine 08/26/2020 12:00 AM EDT from Last 3 Months or Most Recently Relevant to Health Maintenance Insurance DENTAL - [facility]
--- OUTSIDE RECORDS SUMMARY | 2024-07-13 17:14 | XMS_ITS | Encounter Summary ---
Author Organization [employer] Address [address] [facility] [address] [place] [address] Care Team Providers Care Safety And Occupational Health Manager Name Role Phone Unavailable Primary Care Provider Unavailabl e Encounter Details Date Type Department Care Team (Latest Contact Info) Description 03/30/2019 Abstract [facility] CONVERSIONS Dental, Provider, DDS Social History [...] Description 08/23/2024 1:30 PM EDT Office Visit [facility] [address] [place] [address] Raffy Johnston, DANIEL [address] [place] [address] documented as of this encounter Visit Diagnoses Not on filedocumented in this encounter
--- OUTSIDE RECORDS SUMMARY | 2024-07-13 17:14 | XMS_ITS | Data Portability ---
Author Organization [facility] - [facility], Allergy Address [address] [address] Care Team Providers Care External Grinder Tool Name Role Phone PENELOPE CORNELIUS Primary Care Provider [phone] Assessment Encounter Date Assessment Date Assessment LastModified [...] benefit from immunotherapy if approved by her meal attendant in [place]. All questions answered. [email or web address] Not available 04/26/2024 16:45:50 Plan of Treatment Reminders Order Date Submit Date Provider Last Modified By Organization Details Last Modified Time Details Appointments None recorded. Lab None recorded. Referral None recorded. Procedures allergy testing, skin prick (PROC) 2024 025 [email or web address] Not available 5 13:22:42 intraderma l allergy skin testing (PROC) 2024 025 [email or web address] Not available 5 13:22:42 pulmonary function test procedure (PROC) 2024 025 [email or web address] Not available 5 13:22:42 pulse oximetry (PROC) 2024 025 [email or web address] Not available 5 13:22:42 Surgeries None recorded. Imaging None recorded. Medication Orders azelastine 137 mcg (0.1 %) nasal spray 2024 025 [facility], [address], [place], [place], [phone], 5 16:45:06 azelastine 137 mcg (0.1 %) nasal spray 2023 024 [facility], [address], [place], [place], [id number], 4 10:31:40 Patient TargetsNo targets recorded. Patient Instructions Encounter Date Encounter Id Patient Instructions Last Modified By Organization Details Last Modified Time 09/21/2023 [id number] Vasomotor rhinit is only slightly improved with Atrovent. Options reviewed. [...] or medication issues. Not available 09/21/2023 11:02:03 05/22/2024 [id number] Nursing Documentation for Allergy Testing: Ordering Provider {{Dr. Herber Cifuentes* Dr. Isaias Moyer}} Weight:lbs:? ? ?kg: ? ? ? PFT {{Yes* no}} With Bronchodilator {{Yes no*}} Dr. cristina needed to proceed with allergy testing? {{Yes* No}} {{Dr. Lomeli* Dr. Vane Moyer}} ok'd testing {{Yes No Pulmonary Clearance* PCP Clearance RAST}}Hi story of Asthma:{{Yes No*}} Asthma Meds: ? ? ?Last used:? ? ? Asthma exacerbated by: ? ? ? Chance that : {{Yes No Not Sure N/A*}} Fear of needles: {{Yes No*}} Regular medications reviewed in Computer: {{Yes No*}} Medication allergies: {{Reviewed* NKDA}} Antihistamine use: {{Yes No*}} Medications used: ? ? ? Food Allergies: ? ? ? Any foods make your mouth feeling itchy: {{Yes* No}} If yes: ? ? ? apples History of severe reaction where had to go to ER? {{Yes No*}} If yes details: ? ? ? Type of heat in home: {{Baseboard Forced Air* Radiator othe r}} Pets: {{Yes No*}} If yes: ? ? ? Smoker: {{Yes Current Never Form er*}} If former smoker-how much ? ? ? / day for how long ? ? ?didnt want to say When quit ? ? ?15 years ago years ago Smoking now-how much ? ? ? /day for how long ? ? ? Occupation/Social History: ? ? ?stays at home Symptoms having: {{Congestion* Post Nasal Drip Headache Runn y Nose Cough Other}} If other: ? ? ?post nasal drip Frequency {{Seasonally Year Round*}} Spirometry Contraindications: Heart attack in the last 3 months: {{Yes No*}} Major surgery in last 3 months: {{Yes No*}} Detached retina(serious eye issues) in last 2 months: {{Yes No*}} Hospitilization in last month: {{Yes No*}} Proceed with PFT {{Yes* No}} approval needed: {{Yes* No}} Nursing Notes: Pt tolerated test well {{Yes No*}} Benadryl cream to test sites {{Yes No*}} Patient became syncopal-placed in supine position {{Yes No*}} Large reactions to MQT, reschedule IDT for a different date {{Yes No*}} Other: ? ? ?Dr. Lomeli denied getting allergy tested due to pft and peak flow, recommended pt to see jig worker and talk to primary care doctor. Written by: {{Miguelina Kyle, YULISSA Irene, ROSA Erwin*}} [email or web address] Not available 05/22/2024 13:49:42 Reason for Referral None Reported. Results Created [...] ation record ed. [email or web address] Not Available 03:12:17 11/03/1901/01/2021 imagi ng/di agnos tic resul t No observ ation record ed. [email or web address] Not Available 03:12:20 11/03/19 24 03/12/2021 imagi ng/di agnos tic resul t No observ ation record ed. [email or web address] Not Available 03:12:25 05/23/19 25 ashia metry testi ng* No observ ation record ed. [email or web address] Not Available 05/13 16:54:48 Result Notes None recorded. Problems Name Problem SNOMED Code Status Onset Date Resolution Date Notes Provider Name and Address Organization Details Recorded Time Bilateral temporoma ndibular joint pain 58228696110 454751 Active 2018 Arthralgi a of bilateral temporoma ndibular joint; Note: Date Diagnosed : 07/27/2018 1:25 PM (M26.623) Not Available [facility] 4 02:46:53 Headache 77829308 Active 2018 Headache, unspecifi ed; Note: Changed from R51 to R51.9 ( 3:43 PM) , Date Diagnosed : 04/08/2018 12:10 PM (R51) Not Available [facility] 4 02:46:52 Pain of right temporoma ndibular joint 04646281368 182375 Active 2016 Arthralgi a of right temporoma ndibular joint; Note: Date Diagnosed : 04/22/2016 1:59 PM (M26.621) Not Available [facility] 4 02:46:53 Sensorine ural hearing loss of bilateral ears 926906129 Active 2020 Sensorine ural hearing loss, bilateral ; Note: Date Diagnosed : 12:18 PM (H90.3) Not Available [facility] 4 02:46:50 Migraine 53511738 Active 2017 Other migraine, not intractab le, without status migrainos us; Note: Date Diagnosed : 03/25/2017 12:19 PM (G43.809) Not Available [facility] 4 02:46:55 Acute sinusitis 82962237 Active 2020 Other acute sinusitis ; Note: Date Diagnosed : 08/15/2020 1:41 PM (J01.80) Not Available [facility] 4 02:46:57 Gastroeso phageal reflux disease without esophagit is 273074549 Active 2017 Gastro-es ophageal reflux disease without esophagit is; Note: Date Diagnosed : 8 9:31 AM (K21.9) Not Available [facility] 4 02:46:51 Dizziness and giddiness 706959842 Active 2017 Dizziness and giddiness ; Note: Date Diagnosed : 03/25/2017 11:43 AM (R42) Not Available [facility] 4 02:46:55 Vasomotor rhinitis 7845016 Active 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; Note: Date Diagnosed : 03/25/2017 11:50 AM (J30.0) Not Available [facility] 4 02:46:50 Tinnitus of left ear 58750708847 06 Active 2017 Tinnitus, left ear; Note: Date Diagnosed : 03/25/2017 11:55 AM (H93.12) Not Available [facility] 4 02:46:57 Chronic rhinitis 55523577 Active 2013 Chronic pharyngit is and nasophary ngitis: Chronic rhinitis; CMS Risk: low risk [facility] Treatment : new problem (to examiner) : no additiona l workup planned N ote: Date Diagnosed : 12/19/2013 12:00 PM (472.0) Not Available [facility] 4 02:46:56 Follow-up visit Active 2016 Encounter for follow-up examinati on after completed treatment for condition s other than malignant neoplasm; Note: Date Diagnosed : 7 4:29 PM (Z09) Not Available [facility] 4 02:46:56 Dysphasia 72128986 Active 2017 Dysphasia ; Note: Date Diagnosed : 8 9:31 AM (R47.02) Not Available [facility] 4 02:46:56 Posterior rhinorrhe a 43221871 Active 2016 Postnasal drip; Note: Date Diagnosed : 04/22/2016 1:54 PM (R09.82) Not Available [facility] 4 02:46:55 Acute pharyngit is 007165557 Active 2022 Sore throat (acute) NOS; Note: Date Diagnosed : 3 12:47 PM (J02.9) Not Available [facility] 4 02:46:56 Nasal congestio n 55522506 Active 2016 Nasal congestio n; Note: Date Diagnosed : 04/22/2016 1:54 PM (R09.81) Not Available [facility] 4 02:46:53 Allergic rhinitis 98422749 Active 2015 Other allergic rhinitis; Note: Changed from J30.9 to J30.89 ( 6 4:25 PM) , Date Diagnosed : 01/22/2016 3:54 PM (J30.9) Not Available [facility] hospital 4 02:46:49 Nasal mucosa dry 09518040 Active 2023 QUETA MATTHEWS PA-C [address], [place], [address] , [place] - [facility] 4 11:02:24 Anterior rhinorrhe a 290243715 Active 2024 ANGELIKA RODRÍGUEZ PA-C [address], [place], [address] , [place] - [facility] 5 16:32:07 Atypical facial pain 54970219 Active 2024 ANGELIKA RODRÍGUEZ PA-C [address], [place], [address] , [place] - [facility] 5 16:43:52 Non-aller gic rhinitis 72953525990 1 Active 2024 ANGELIKA RODRÍGUEZ PA-C [address], [place], [address] , [place] - [facility] 5 16:44:24 Seasonal allergic rhinitis 538683671 Active 2024 ANGELIKA RODRÍGUEZ PA-C [address], [place], [address] , [place] - [facility] 5 16:44:24 Chronic obstructi ve pulmonary disease 60078725 Active 2024 CARLOS LOMELI MD [address] [facility], [place], [address] , [facility] 14:10:02 Problem Notes None recorded. Procedures Surgical History Date Name Laterality Status Provider Name and Address Organization Details Recorded Time Nasal Endoscopy completed ANGELIKA RODRÍGUEZ PA-C [address] [facility], [place], [address], [facility] 04/26/2024 16:39:27 Imaging Results Imaging Date Name Status LastModified by Organiz ation Details LastModified Time 07/27/2018 imaging/diagnos tic result completed Information not available 11/03/2023 03:11:40 11/05/2020 imaging/diagnos tic result completed Information not available 11/03/2023 03:12:02 01/01/2021 imaging/diagnos tic result completed Information not available 11/03/2023 03:12:17 01/01/2021 imaging/diagnos tic result completed Information not available 11/03/2023 03:12:20 03/12/2021 imaging/diagnos tic result completed Information not available 11/03/2023 03:12:25 05/22/2024 spirometry testing* completed [email or web address] Information not available 05/22/2024 16:54:48 Procedure Notes None recorded. Medical Equipment None Reported. Allergies Allergen ID Allergen Name Allergen Category Reaction Reaction Severity Criticality Documentation Date Start Date Code Code System Note Provider Name and Address Organization Details Recorded Time 510441 prednisol one medicatio n hallucina tions Not available Not available 05/22/2024 8638 RxNorm ROSA GUZMÁN [address] [facility], [facility] [place], [address], [facility] 13:01:00 Medications Name Sig Start Date Stop Date Status Note LastModified by Organization Details LastModified Time Prescript ion - Prior Authoriza tion Request active Script Copy/La or Auth^Scr ipt Copy/La or Auth_ Not Available Not Available Not Available melatonin tr 10 mg tbcr active Not Available Not Available Not Available melatonin prolonged release 10 mg tbcr active Not Available Not Available Not Available gabapenti n 600 mg tablet active Not Available Not Available Not Available doxycycli ne hyclate 100 mg capsule by mouth 08/15 completed Medicati on ID: [id number] D uration Value: 10 Prescri bed By [...] TABLET ORALLY 3 TIMES PER DAY NEEDED 05/22 completed Not Available Not Available Not Available fluconazo le 150 mg tablet TAKE 1 TABLET BY MOUTH MAY TAKE 1 TABLET 72 HOURS LATER IF SYMPTOMS HAVE NOT IMPROVED . active Not Available Not Available No t Available phenazopy ridine 200 mg tablet 05/22 completed Medicati on ID: [id number] B rand Name: phenazop yridine Send Method: [...] mg tablet 12/30 completed Medicati on ID: [id number] D uration Value: 8 Brand Name: ondaisaíaset antony HCl Send Method: E-Prescr ibed Sub s Allowed: subs OK Medic ationGen ericName : ondanset antony HCl Not Available Not Available Not Available prednison e 20 mg tablet 2 tablet by mouth 12/30 completed Medicati on ID: [id number] D uration Value: 5 Prescri bed By [...] MOUTH TWICE A DAY FOR 7 DAYS 05/22 completed Not Available Not Available Not Available terazosin 1 mg capsule TAKE 1 CAPSULE BY MOUTH AT BEDTIME active Not Available Not Available No t Available butalbita l-acetami nophen-ca ffeine 50 mg-325 mg-40 mg tablet 12/30 completed Medicati on ID: [id number] D uration Value: 2 Brand Name: butalbit [...] mg tablet 12/30 completed Medicati on ID: [id number] D uration Value: 30 Brand Name: carbamaz epine Se nd Method: E-Prescr ibed Sub s Allowed: subs OK Medic ationGen ericName : carbamaz epine Not Available Not Available Not Available lorazepam 0.5 mg tablet active Not Available Not Available Not Available tamsulosi n 0.4 mg capsule 05/22 completed Not Available Not Available Not Available dicyclomi ne 20 mg tablet TAKE 1 TABLET BY MOUTH BEFORE MEALS AND AT BEDTIME FOR STOMACH PAIN/SPA SMS 03/22 completed Not Available Not Available Not Available hyoscyami ne sulfate 0.125 mg tablet TAKE 1 TABLET ORALLY 2 TIMES A DAY NEEDED FOR DYSPEPSI A 05/22 completed Not Available Not Available Not Available [...] mcg tablet 12/30 completed Medicati on ID: [id number] Bra nd Name: misopros koki Send Method: [...] capsule 01/05 completed Medicati on ID: [id number] [place] son: () Brand Name: gabapent in Send [...] lable hydroxych loroquine 200 mg tablet TAKE 1.5 TABLETS BY MOUTH EVERY DAY 05/22 completed Not Available Not Available Not Available levofloxa mignon 500 mg tablet TAKE 1 TABLET BY MOUTH EVERY DAY FOR 7 DAYS 05/22 completed Not Available Not Available Not Available estradiol 0.01% (0.1 mg/gram) vaginal cream [...] Available hydroxyzi ne HCl 10 mg tablet 05/22 completed Not Available Not Available Not Available fluticaso ne propionat e 50 mcg/actua tion nasal spray,danielle pension Use 2 sprays into each nostril every day 2024 active Not Available Not Available Not Avai lable doxepin 5 % topical cream 12/30 completed Medicati on ID: [id number] D uration Value: 23 Brand Name: doxepin Send Method: E-Prescr ibed Sub s Allowed: subs OK Medic ationGen ericName : doxepin Not Available Not Available Not Available metronida zole 0.75 % topical gel 05/22 completed Not Available Not Available Not Available ipratropi um bromide 21 mcg (0.03 %) nasal spray USE 2 SPRAYS EACH NOSTRILS 1-3 TIMES DAILY 15 MINUTES BEFORE MEALS 2024 active Not Available Not Available Not Avai lable loratadin e 10 mg tablet TAKE 1 TABLET BY MOUTH EVERY DAY active Not Available Not Available No t Available diazepam 5 mg tablet 03/23 completed Medicati on ID: [id number] D uration Value: 1 Brand Name: diazepam Send Method: E-Prescr ibed Sub s Allowed: subs OK Medic ationGen ericName : diazepam Not Available Not Available Not Available amoxicill in 875 mg-potass ium clavulana te 125 mg tablet TAKE 1 TABLET BY MOUTH EVERY 12 HOURS FOR 10 DAYS 05/22 completed Not Available Not Available Not Available escitalop qasim 10 mg tablet 03/23 completed Not Available Not Available Not Available escitalop qasim 20 mg tablet active Not Available Not Available Not Available bupropion HCl XL 150 mg 24 hr tablet, extended release 03/23 completed Medicati on ID: [id number] D uration Value: 30 Brand Name: bupropio n HCl Send Method: E-Prescr ibed Sub s Allowed: subs OK Speci al Instruct ion: TAKE 1 TABLET EVERY MORNING Medicati onGeneri cName: bupropio n HCl Not Available Not Available Not Available escitalop qasim 5 mg tablet 07/08 completed Medicati on ID: [id number] D uration Value: 30 Reason: () Brand [...] ID: [id number] [place] son: () Brand Name: omeprazo ray ferreru m Send Method: E-Prescr ibed Sub s Allowed: subs OK Medic ationGen ericName : omeprazo le baronesiu m Not Available Not Available Not Available Sodium Fluoride 5000 Plus 1.1 % dental cream APPLY DIRECTED TO TEETH THREE TIMES DAILY active Not Available Not Available No t Available Vitals Date Recorded Body height Oxygen saturation Oxygen saturation in Arterial blood by Pulse oximetry Body mass index (BMI) Body weight Heart rate Systolic blood pressure Diastolic blood pressure Provider Name and Address Organization Details Last Updated DateTime 157.48 cm 98 % 98 % 25.6 kg/m2 66663.9 3 g 71 /min 122 mm[Hg] 65 mm[Hg] BRYAN ERWIN, [address], [address], [place] - [facility] 13:45:21 Date Recorded Body height Body mass index (BMI) Body weight Provider Name and Address Organization Details Last Updated DateTime 09/21/2023 157.48 cm 25.6 kg/m2 41254.93 g Lorenza Villarreal [place] - [facility] 09/21/2023 10:22:52 Date Recorded Body height Body weight Provider Name and Address Organization Details Last Updated DateTime 2024 157.48 cm 37970.93 g Lorenza Villarreal [facility] 2024 10:20:24 Date Recorded Body height Body mass index (BMI) Body weight Provider Name and Address Organization Details Last Updated DateTime 04/26/2024 157.48 cm 25.6 kg/m2 30554.93 g Magy Hassan [place] - [facility] 04/26/2024 16:06:43 Social History None recorded. Functional [...] Disorder N Anesthesia Complications N Heart Attack ([place]) Y Other Skin Condition Y Diabetes N [...] Code Diagnosis ICD10 Code Diagnosis Note [id number] QUETA MATTHEWS PA-C [facility] [address] [address] 09/21/2023 10:18:14 09/21/2023 10:37:56 Vasomotor rhinitis 2186810 J30.0 Nasal mucosa dry 3245716 2 J34.89 [id number] QUETA MATTHEWS PA-C [facility] [address] [address] 2024 10:14:30 2024 10:41:37 Acute sinusitis 94756398 J01.90 Nasal congestion 3215695 0 R09.81 Nasal mucosa dry 3229057 2 J34.89 Vasomotor rhinitis 28448 03 J30.0 Posterior rhinorrhea 758 37558 R09.82 [id number] ANGELIKA RODRÍGUEZ PA-C [facility] [address] [address] 04/26/2024 16:01:00 04/26/2024 16:33:24 Posterior rhinorrhea 58472745 R09.82 Anterior rhinorrhea 2772 71114 J34.89 Allergic rhinitis 540995 04 J30.9 Headache 11920769 R51.9 [id number] ROSA GUZMÁN [facility] [address] [facility] [address] [address] 05/22/2024 12:32:38 05/22/2024 13:55:12 Allergic rhinitis 47655226 J30.9 Health Concerns Section Related Observation LastModified by Organization Detai ls LastModified Time None Recorded Concern Status LastModified by Organization Details LastModified Time None Recorded Advance Directives Directive None Recorded Payers Encounter Date Sequence Insurance Name Policy Number Policy Kuo Covered Member ID Kuo Member ID Guarantor Name 09/21/2023 1 [facility] (MEDICARE REPLACEMENT/ ADVANTAGE - HMO) [facility] Jessa Minor [id number] Jessa Minor 09/21/2023 2 [place] [facility] Jessa Minor [id number] Jessa Minor 2024 1 [facility] (MEDICARE REPLACEMENT/ ADVANTAGE - HMO) SUSHILAROSAS [employer] [id number] Jessa Nam Mily 04/26/2024 1 [facility] (MEDICARE REPLACEMENT/ ADVANTAGE - HMO) DIANDRA Bowerella [id number] Jessa Nam Mily 05/22/2024 1 [facility] (MEDICARE REPLACEMENT/ ADVANTAGE - HMO) DIANDRA Bowerella [id number] Jessa Minor Notes Date Note Type Note [...] distribution, and hyposmia. MARLA MOYER MD [address] [facility],[address], [address], [facility] - [facility] 09/21/2023 11:31:24 2024 text/html 69 year old [...] stopped her fluticasone. TY SMITH MD [address] [facility], [place], [address], [place] - [facility] 2024 16:46:20 04/26/2024 text/html 69yo female with [...] has lupus and is closely followed by [place] [facility]. TY SMITH MD [address] [place] [address], [place], [address], [place] - [facility] 04/26/2024 17:40:05 OBGyn Episode No OBEpisode recorded.
--- OUTSIDE RECORDS SUMMARY | 2024-07-13 17:14 | XMS_ITS | Clinical Summary ---
Author Organization [facility] it Address [address] [place] [address] Care Team Providers Care Hoop Riveting Machine Operator Name Role Phone Osirsi Soni MD Primary Care Provider Medical History [...] - 2023-2 5 season) 2023 Influenza Vaccine (Season Ended) 2024 RSV Immunization Adult Patie nts (1 - 1-dose 75+ series) 2029 HIB [...] age to complete this topic Meningococcal B Vaccine Aged Out No l onger eligible based on patient's age to complete this topic RSV Immunization Patients Un sadia 20 months Aged Out No longer eligible b ased on patient's age to complete this topic Varicella Vaccines Aged Out No longer eligible based on patient's age to complete this topic Care Teams Hoop Riveting Machine Operator Relationship Specialty Start Date End Date Osiris Soni MD [address] [place] [address] PCP - General Internal Medicine 06/06/11
--- OUTSIDE RECORDS SUMMARY | 2024-07-13 17:14 | XMS_ITS ---
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 2023-02-23 No Data Available Ipratropium Hamilton 0.03 % Solution USE 2 SPRAYS EACH NOSTRILS 1-3 TIMES DAILY 15 MINUTES BEFORE MEALS 2023-05-06 No Data Available Diclofenac Sodium 1 % Gel 4 grams topica lly to affected area 4 times per day PRN 2023-07-09 No Data Available Loratadine 10 mg Tab TAKE 1 TABLET BY [facility] EVERY DAY 2023-07-27 No Data Available Escitalopram Oxalate 20 mg Tab No Data Available 06-10 No Data Available Triamcinolone Acetonide 0.1 % Oint No Data Available 2022-08-20 No Data Available Hydroxychloroquine Sulfate 2 00 mg Tab TAKE 1 AND 1/2 TABLETS BY MOUTH EVERY DAY 2023-08-19 No Data Available Terazosin 1 mg Cap TAKE 1 CAPSULE BY [facility] EVERYDAY AT BEDTIME 2023-12-14 No Data [...] Active 2023-08-30 N/A Other problems related to [facility] facilities and other health care Active 2023-08-30 N/A Vaginal yeast infection Resolved 2023-02-232023 Sinus congestion Resolved 2022-10-20 2023-08-30 Pinched nerve Resolved 2023-01-05 2023-08-30 Rheumatoid arthritis with Im munodeficiency due to conditions classified elsewhere Active 2022-10-15 N/A Sinusitis Active 2024-04-11 N/A Encounters Encounters Type Facility Date of Service Diagnosis/Co mplaint No Data Available [facility] Other specified disorders of nose and nasal sinuses No Data Available [facility] No Data Available [facility] No Data Available [facility] No Data Available [facility] No Data Available [facility] No Data Available [facility] New patient,40-59min; chronic exacerbation, 2 stable chronic or 1 acute illness add add modifier 95 for video (do not use for phone, instead use [id number]) [facility] Rheumatoid arthritis, unspecifiedUlcerative colitis, unspecified, without complicationsAtopic dermatitis, unspecifiedRash and other nonspecific skin eruptionEssential (primary) hypertensionBipolar II disorderGastritis, unspecified, without bleedingDorsalgia, unspecifiedRetention of urine, unspecifiedRepeated fallsGastro-esophageal reflux disease without esophagitisOld myocardial infarction New patient,40-59min; chronic exacerbation, 2 stable chronic or 1 acute illness add add modifier 95 for video (do not use for phone, instead use 56038-42) [facility] New patient,40-59min; chronic exacerbation, 2 stable chronic or 1 acute illness add add modifier 95 for video (do not use for phone, instead use 84851-60) [facility] New patient,40-59min; chronic exacerbation, 2 stable chronic or 1 acute illness add add modifier 95 for video (do not use for phone, instead use [id number]) [facility] New patient,40-59min; chronic exacerbation, 2 stable chronic or 1 acute illness add add modifier 95 for video (do not use for phone, instead use 75111-90) [facility] New patient,40-59min; chronic exacerbation, 2 stable chronic or 1 acute illness add add modifier 95 for video (do not use for phone, instead use 55739-15) [facility] New patient,40-59min; chronic exacerbation, 2 stable chronic or 1 acute illness add add modifier 95 for video (do not use for phone, instead use [id number]) [facility] New patient,40-59min; chronic exacerbation, 2 stable chronic or 1 acute illness add add modifier 95 for video (do not use for phone, instead use 44464-33) [facility] No Data Available [facility]2023 Mononeuropathy, unspecified No Data Available [facility]2023 Essential (primary) hypertensionBipolar II disorderOld myocardial infarctionRheumatoid arthritis, unspecifiedGastritis, unspecified, without bleedingUlcerative colitis, unspecified, without complicationsDorsalgia, unspecifiedAtopic dermatitis, unspecifiedRash and other nonspecific skin eruptionRetention of urine, unspecifiedRepeated fallsGastro-esophageal reflux disease without esophagitisNasal congestionMononeuropathy, unspecified No Data Available [facility] No Data Available [facility] No Data Available [facility] No Data Available [facility] No Data Available [facility] No Data Available [facility]2023 Ulcerative colitis, unspecif ied, without complicationsGastritis, unspecified, without bleedingGastro-esophageal reflux disease without esophagitisRetention of urine, unspecifiedUnspecified urinary incontinenceOveractive bladder No Data Available [facility]2023 Acute candidiasis of vulva a nd vaginaEncntr for general adult medical exam w/o abnormal findingsEssential (primary) hypertension No Data Available [facility] [place] No Data Available [facility] [place] No Data Available [facility] [place] No Data Available [facility] [place] No Data Available [facility]2023 Rheumatoid arthritis, unspec ified No Data Available [facility] [place]2023 Rheumatoid arthritis, unspec ified No Data Available [facility] [place]2023 No Data Available [facility] [place]2023 No Data Available [facility] [place]23 No Data Available [facility] [place]2023 Rheumatoid arthritis, unspec ified No Data Available [facility] [place]2023 No Data Available [facility] [place] Estab. patient 30-39min; chronic exacerbation, 2 stable chronic or 1 acute illness add add modifier 95 for video, (do not use for phone, instead use 41007-08) [facility]2023 Essential (primary) hypertensionBipolar II disorderOld myocardial [...] (do not use for phone, instead use 51151-55) [facility]20[place] Estab. patient 30-39min; chronic exacerbation, 2 stable chronic or 1 acute illness add add modifier 95 for video, (do not use for phone, instead use 84074-17) [facility] Estab. patient 30-39min; chronic exacerbation, 2 stable chronic or 1 acute illness add add modifier 95 for video, (do not use for phone, instead use 37204-11) [facility] Estab. patient 30-39min; chronic exacerbation, 2 stable chronic or 1 acute illness add add modifier 95 for video, (do not use for phone, instead use 00080-28) [facility] Estab. patient 30-39min; chronic exacerbation, 2 stable chronic or 1 acute illness add add modifier 95 for video, (do not use for phone, instead use 89624-43) [facility]20[place] Estab. patient 30-39min; chronic exacerbation, 2 stable chronic or 1 acute illness add add modifier 95 for video, (do not use for phone, instead use 77112-27) [facility]20[place] Estab. patient 30-39min; chronic exacerbation, 2 stable chronic or 1 acute illness add add modifier 95 for video, (do not use for phone, instead use 90859-62) [facility] Estab. patient 30-39min; chronic exacerbation, 2 stable chronic or 1 acute illness add add modifier 95 for video, (do not use for phone, instead use 64024-98) [facility]20[place] Estab. patient 30-39min; chronic exacerbation, 2 stable chronic or 1 acute illness add add modifier 95 for video, (do not use for phone, instead use 40654-74) [facility] Estab. patient 10-29min; 1 minor problem; add add modifier 95 for video, modifier 93 for phone [facility]/2024 Chronic sinusitis, unspecifi ed Estab. patient 10-29min; 1 minor problem; add add modifier 95 for video, modifier 93 for phone [facility] 04[place]/20[place] Estab. patient 10-29min; 1 minor problem; add add modifier 95 for video, modifier 93 for phone [facility] [place]20[place] Estab. patient 10-29min; 1 minor problem; add add modifier 95 for video, modifier 93 for phone [facility] [place] Estab. patient 10-29min; 1 minor problem; add add modifier 95 for video, modifier 93 for phone [facility] [place] 04/14/2024 Essential (primary) [...] 95 for video, modifier 93 for phone [facility] [place] 04/14/20[place] Estab. patient 10-29min; 1 minor problem; add add modifier 95 for video, modifier 93 for phone [facility] [place] 04/14/2024 Estab. patient 10-29min; 1 minor problem; add add modifier 95 for video, modifier 93 for phone [facility] [place] 04/14/2024 Estab. patient 10-29min; 1 minor problem; add add modifier 95 for video, modifier 93 for phone [facility] [place] Estab. patient 10-29min; 1 minor problem; add add modifier 95 for video, modifier 93 for phone [facility] [place]14/[place] Estab. patient 10-29min; 1 minor problem; add add modifier 95 for video, modifier 93 for phone [facility] [place] 05/09/[facility] [...] date Servicing provider Phone# No Data Available [id number] 2022-10-20 No Data Available No Data Available [...] (do not use for phone, instead use 36947-03) [id number] 2022-10-15 No Data Available No Data Availa [...] No Data Avail able No Data Available [id number] 2023-01-05 No Data Available No Data Available No Data Available [id number] 2023-01-16 No Data Available No Data Available [...] No Data Anastacia ilable No Data Available [id number] 2023-02-03 No Data Available No Data Available [...] (do not use for phone, instead use [id number]) [id number] 2023-08-30 No Data Available No Data Availa [...] 95 for video, modifier 93 for phone [id number] 2024-04-12 No Data Available No Data Availa ble No Data Available [id number] 2024-04-12 No Data Available No Data Available SBP >= 140 3077F 2024-04-12 No Data Available No Data Available DBP <80 (3078F) 3078F 2024-04-12 No Data Available No Data Available Estab. patient 10-29min; 1 minor problem; add add modifier 95 for video, modifier 93 for phone [id number] 2024-04-14 No Data Available No Data Availa [...] 95 for video, modifier 93 for phone [id number] 2024-05-09 No Data Available No Data Availa [...] stool max 4 times daily #30 capsule [id number] New Dicyclomine 20 mg Tab TAKE 1 TABLET BY MOUTH AC/HS for stomach pain/spasms #60 tablet [id number] New Ondansetron 8 mg Tab Disintegrating 1 [...] sara-care- personal hygiene wipes- hand soap and location director as per prior order- box of medium gloves- to follow up with skilled nursing case manager and PCP for further monitoring and management hx: 10/15/22: Reports urinary retention and managed with Flomax1. Dz management discussed2. Continue to follow up with PCP 2023-02-23 11:16:05 New Diflucan 150 mg Tab Take 1 tablet PO. May take 1 tablet 72 hours later if symptoms have not improved. #2 tablet [id number] Miconazole Nitrate 2 % Crm Vaginal Apply to affected area daily x 7 days. #1 applicator [id number] (patient, parent, or guardian); 11-20 minutes of [...] Documented (1125F)Continue to see PCP. Follow-up with [facility] as needed for any acute or [...] for and report early any s/s of [id number]/22/23- continue plan of care and conservative measures eRx New Loperamide 2 mg Cap 2 tablets after first loose stool, then take 1 tablet after each loose stool max 4 times daily #30 capsule [id number] New Dicyclomine 20 mg Tab TAKE 1 TABLET BY MOUTH AC/HS for stomach pain/spasms #60 tablet [id number] New Ondansetron 8 mg Tab Disintegrating 1 [...] sara-care- personal hygiene wipes- hand soap and location director as per prior order- box of medium gloves- to follow up with skilled nursing case manager and PCP for further monitoring and management [...] they most likely to go back?Please call [facility] if you have a change in [...] for phoneContinue to see PCP. [facility] or disease [...] Follow up with Psychiatry for provider assignment10/15/22: [facility] done in 09/2022. No interventions.1. F/u with [...] for and report early any s/s of /22/23- continue plan of care and conservative measures eRx New Loperamide 2 mg Cap 2 tablets after first loose stool, then take 1 tablet after each loose stool max 4 times daily #30 capsule [id number] New Dicyclomine 20 mg Tab TAKE 1 TABLET BY MOUTH AC/HS for stomach pain/spasms #60 tablet [id number] New Ondansetron 8 mg Tab Disintegrating 1 [...] sara-care- personal hygiene wipes- hand soap and location director as per prior order- box of medium gloves- to follow up with skilled nursing case manager and PCP for further monitoring and management [...] they most likely to go back?Please call [facility] if you have a change in [...] for phoneContinue to see PCP. [facility] any acute or disease education needs that may arise 05/10.Diflucan 150 mg Tab Take 1 tablet PO. May take 1 tablet 72 hours later if symptoms have not improved. #2 tablet [id number] underwearNotify for persistant symptoms. Goals Date Goal [...]
== END 2024-07-13 16:07 | disposition home or self-care (01) ==
LOC: HO.HPS 15:30
PROVIDERS: PCP Internal Medicine; Referring Provider Internal Medicine; Visit Provider Internal Medicine
DX: G47.33 Obstructive sleep apnea (adult) (pediatric) (principal); J98.4 Other disorders of lung; R06.09 Other forms of dyspnea; J30.9 Allergic rhinitis, unspecified
CPT/HCPCS: 99204

== ENCOUNTER → 2024-07-13 15:29 | Outpatient (BNVA) | payer OTHER, SELFPAY | PROVIDERS: PCP Internal Medicine; Referring Provider Internal Medicine; Visit Provider Internal Medicine | DX: G47.33 Obstructive sleep apnea (adult) (pediatric) (principal); J98.4 Other disorders of lung; J30.9 Allergic rhinitis, unspecified; R06.09 Other forms of dyspnea | CPT/HCPCS: 99202 ==

== ENCOUNTER 2024-08-03 08:17 | Outpatient (AMB) | payer OTHER, SELFPAY ==
--- OUTSIDE RECORDS SUMMARY | 2024-08-03 08:29 | XMS_ITS | Encounter Summary ---
Author Organization [employer] Address [address] [facility] [address] [place] [address] Care Team Providers Care Railroad Cook Name Role Phone Unavailable Primary Care Provider Unavailabl e Encounter Details Date Type Department Care Team (Latest Contact Info) Description 08/26/2020 Abstract [facility] CONVERSIONS Dental, Provider, DDS Social [...] Description 08/23/2024 1:30 PM EDT Office Visit [facility] [address] [place] [address] Raffy Johnston, DANIEL [address] [place] [address] documented as of this encounter Visit Diagnoses Not on filedocumented in this encounter
--- OUTSIDE RECORDS SUMMARY | 2024-08-03 08:29 | XMS_ITS | Data Portability ---
Author Organization [facility], Allergy Address [address] [address] Care Team Providers Care Land Lease Information Clerk Name Role Phone PENELOPE CORNELIUS Primary Care [...] benefit from immunotherapy if approved by her guest relations representative in [place]. All questions answered. [email or web address] Not available 04/26/2024 [...] [facility], [address], [place], [place], [id number], 5 16:45:06 azelastine 137 mcg (0.1 %) nasal spray 2023 024 [facility], [address], [place], [place], [phone], 4 10:31:40 Patient TargetsNo targets recorded. Patient Instructions Encounter Date Encounter Id Patient Instructions Last Modified By Organization Details Last Modified Time 09/21/2023 [id number] Vasomotor rhinit is only slightly improved with [...] medication issues. Not available 09/21/2023 11:02:03 05/22/2024 [id number] Nursing Documentation for Allergy Testing: Ordering Provider [...] and peak flow, recommended pt to see associate artistic director and talk to primary care doctor. Written by: {{Miguelina Kyle, YULISSA Irene, ROSA Erwin*}} [email or web address] Not available 05/22/2024 13:49:42 Reason for Referral [...] Recorded Time Bilateral temporoma ndibular joint pain 44759583942 567700 Active 2018 Arthralgi a of bilateral temporoma ndibular joint; Note: Date Diagnosed : 07/27/2018 1:25 PM (M26.623) Not Available [facility] 4 02:46:53 Headache 33354230 Active 2018 Headache, unspecifi ed; Note: Changed from R51 to R51.9 ( 3:43 PM) , Date Diagnosed : 04/08/2018 12:10 PM (R51) Not Available [facility] 4 02:46:52 Pain of right temporoma ndibular joint 75302774215 434043 Active 2016 Arthralgi a of right temporoma ndibular joint; Note: Date Diagnosed : 04/22/2016 1:59 PM (M26.621) Not Available [facility] 4 02:46:53 Sensorine ural hearing loss of bilateral ears 350469081 Active 2020 Sensorine ural hearing loss, bilateral ; Note: Date Diagnosed : 12:18 PM (H90.3) Not Available [facility] 4 02:46:50 Migraine 20347331 Active 2017 Other migraine, not intractab le, without status migrainos us; Note: Date Diagnosed : 03/25/2017 12:19 PM (G43.809) Not Available [facility] 4 02:46:55 Acute sinusitis 67340186 Active 2020 Other acute sinusitis ; Note: Date Diagnosed : 08/15/2020 1:41 PM (J01.80) Not Available [facility] 4 02:46:57 Gastroeso phageal reflux disease without esophagit is 600252966 Active 2017 Gastro-es ophageal reflux disease without esophagit is; Note: Date Diagnosed : 8 9:31 AM (K21.9) Not Available [facility] 4 02:46:51 Dizziness and giddiness 724778100 Active 2017 Dizziness and giddiness ; Note: Date Diagnosed : 03/25/2017 11:43 AM (R42) Not Available [facility] 4 02:46:55 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 Active 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; Note: Date Diagnosed : 03/25/2017 11:50 AM (J30.0) Not Available [facility] 4 02:46:50 Tinnitus of left ear 36154451725 06 Active 2017 Tinnitus, left ear; Note: Date Diagnosed : 03/25/2017 11:55 AM (H93.12) Not Available [facility] 4 02:46:57 Chronic rhinitis 36335058 Active 2013 Chronic pharyngit is and nasophary ngitis: Chronic rhinitis; CMS Risk: low risk [facility] Treatment : new problem (to examiner) : no additiona l workup planned N ote: Date Diagnosed : 12/19/2013 12:00 PM (472.0) Not Available [facility] 4 02:46:56 Follow-up visit Active 2016 Encounter for follow-up examinati on after completed treatment for condition s other than malignant neoplasm; Note: Date Diagnosed : 7 4:29 PM (Z09) Not Available [facility] 4 02:46:56 Dysphasia 27718905 Active 2017 Dysphasia ; Note: Date Diagnosed : 8 9:31 AM (R47.02) Not Available [facility] 4 02:46:56 Posterior rhinorrhe a 09838188 Active 2016 Postnasal drip; Note: Date Diagnosed : 04/22/2016 1:54 PM (R09.82) Not Available [facility] 4 02:46:55 Acute pharyngit is 992439205 Active 2022 Sore throat (acute) NOS; Note: Date Diagnosed : 3 12:47 PM (J02.9) Not Available [facility] 4 02:46:56 Nasal congestio n 66298745 Active 2016 Nasal congestio n; Note: Date Diagnosed : 04/22/2016 1:54 PM (R09.81) Not Available [facility] 4 02:46:53 Allergic rhinitis 33622841 Active 2015 Other allergic rhinitis; Note: Changed from J30.9 to J30.89 ( 6 4:25 PM) , Date Diagnosed : 01/22/2016 3:54 PM (J30.9) Not Available [facility] 4 02:46:49 Nasal mucosa dry 86086050 Active 2023 QUETA MATTHEWS PA-C [address], [place], [address] , [place] - [facility] 4 11:02:24 Anterior rhinorrhe a 185674505 Active 2024 ANGELIKA RODRÍGUEZ PA-C [address], [place], [address] , [place] - [facility] 5 16:32:07 Atypical facial pain 36570842 Active 2024 ANGELIKA RODRÍGUEZ PA-C [address], [place], [address] , [place] - [facility] 5 16:43:52 Non-aller gic rhinitis 13387015645 1 Active 2024 ANGELIKA RODRÍGUEZ PA-C [address], [place], [address] , [place] - [facility] 5 16:44:24 Seasonal allergic rhinitis 185117909 Active 2024 ANGELIKA RODRÍGUEZ PA-C [address], [place], [address] , [place] - [facility] 5 16:44:24 Chronic obstructi ve pulmonary disease 34665317 Active 2024 CARLOS LOMELI MD 100 [facility] 100, [place], [address] , [facility] 14:10:02 Problem Notes None recorded. Procedures Surgical History Date Name Laterality Status Provider Name and Address Organization Details Recorded Time Nasal Endoscopy completed ANGELIKA RODRÍGUEZ PA-C 100 [facility] 100, [place], [address], [facility] 04/26/2024 16:39:27 Imaging Results Imaging [...] Name and Address Organization Details Recorded Time 472925 prednisol one medicatio n hallucina tions Not available Not available 05/22/2024 [id number] RxNorm ROSA GUZMÁN 100 [facility] 100, [facility] [place], [address], [facility] 13:01:00 Medications Name Sig Start [...] by mouth 08/15 completed Medicati on ID: [id number] D uration Value: 10 Prescri bed By [...] mg tablet 05/22 completed Medicati on ID: [id number] B rand Name: phenazop yridine Send Method: [...] mg tablet 12/30 completed Medicati on ID: [id number] D uration Value: 8 Brand Name: ondaisaíaset antony HCl Send Method: E-Prescr ibed Sub s Allowed: subs OK Medic ationGen ericName : ondanset antony HCl Not Available Not Available Not Available prednison e 20 mg tablet 2 tablet by mouth 12/30 completed Medicati on ID: [id number] D uration Value: 5 Prescri bed By [...] mg tablet 12/30 completed Medicati on ID: [id number] D uration Value: 2 Brand Name: butalbit [...] mg tablet 12/30 completed Medicati on ID: [id number] D uration Value: 30 Brand Name: carbamaz [...] 01/05 completed Medicati on ID: 2170 [place] son: () Brand Name: gabapent in Send [...] tablet 07/08 completed Medicati on ID: 2176 [place] son: () Brand Name: zolpidem Send Method: [...] topical cream 12/30 completed Medicati on ID: [id number] D uration Value: 23 Brand Name: doxepin [...] mg tablet 03/23 completed Medicati on ID: [id number] D uration Value: 1 Brand Name: diazepam [...] extended release 03/23 completed Medicati on ID: [id number] D uration Value: 30 Brand Name: bupropio n HCl Send Method: E-Prescr ibed Sub s Allowed: subs OK Speci al Instruct ion: TAKE 1 TABLET EVERY MORNING Medicati onGeneri cName: bupropio n HCl Not Available Not Available Not Available escitalop qasim 5 mg tablet 07/08 completed Medicati on ID: [id number] D uration Value: 30 Reason: () Brand [...] release 07/08 completed Medicati on ID: 2169 [place] son: () Brand Name: omeprazo ray ferreru [...] cm 98 % 98 % 25.6 kg/m2 14405.9 3 g 71 /min 122 mm[Hg] 65 mm[Hg] BRYAN ERWIN, [address], [address], [place] - [facility] 13:45:21 Date Recorded Body height Body mass index (BMI) Body weight Provider Name and Address Organization Details Last Updated DateTime 09/21/2023 157.48 cm 25.6 kg/m2 72058.93 g Lorenza Villarreal [place] - [facility] 09/21/2023 10:22:52 Date Recorded Body height Body weight Provider Name and Address Organization Details Last Updated DateTime 2024 157.48 cm 59615.93 g Lorenza Villarreal [facility] 2024 10:20:24 Date Recorded Body height Body mass index (BMI) Body weight Provider Name and Address Organization Details Last Updated DateTime 04/26/2024 157.48 cm 25.6 kg/m2 90038.93 g Magy Hassan [place] - [facility] 04/26/2024 16:06:43 Social History None [...] Disorder N Anesthesia Complications N Heart Attack (ME) Y Other Skin Condition Y Diabetes N [...] Note [id number] QUETA MATTHEWS PA-C [facility] [address] [address] 09/21/2023 10:18:14 09/21/2023 10:37:56 Vasomotor rhinitis 8811539 J30.0 Nasal mucosa dry 4409902 2 J34.89 [id number] QUETA MATTHEWS PA-C [facility] [address] [address] 2024 10:14:30 2024 10:41:37 Acute sinusitis 80736957 J01.90 Nasal congestion 4336728 0 R09.81 Nasal mucosa dry 8458611 2 J34.89 Vasomotor rhinitis 92334 03 J30.0 Posterior rhinorrhea 758 42582 R09.82 [id number] ANGELIKA RODRÍGUEZ PA-C [facility] [address] [address] 04/26/2024 16:01:00 04/26/2024 16:33:24 Posterior rhinorrhea 35642359 R09.82 Anterior rhinorrhea 2772 19326 J34.89 Allergic rhinitis 229900 04 J30.9 Headache 33863157 R51.9 [id number] ROSA GUZMÁN [facility] [address] [place] [address] [address] 05/22/2024 12:32:38 05/22/2024 13:55:12 Allergic rhinitis 30108203 J30.9 Health Concerns Section Related Observation LastModified by Organization Detai ls LastModified Time None Recorded Concern Status LastModified by Organization Details LastModified Time None Recorded Advance Directives Directive None Recorded Payers Insurance Date Sequence Insurance Name Policy Number Policy Kuo Covered Member ID Kuo Member ID Guarantor Name 05/23/2024 1 [facility] (MEDICARE REPLACEMENT/ ADVANTAGE - HMO) [facility] Jessa Minor [id number] Jessa Minor 05/23/2024 2 [place] [facility] Jessa Minor [id number] Jessa Minor Notes Date Note Type Note [...] distribution, and hyposmia. MARLA MOYER MD 100 [facility] 100, [place], [address], [place] - [facility] 09/21/2023 11:31:24 2024 text/html 69 [...] stopped her fluticasone. TY SMITH MD 100 [facility] 100, [place], [address], [facility] - [facility] 2024 16:46:20 04/26/2024 text/html 69yo [...] has lupus and is closely followed by [facility]. TY SMITH MD [address] [place] [address], [place], [address], [facility] - [facility] 04/26/2024 17:40:05 OBGyn Episode No OBEpisode recorded.
--- OUTSIDE RECORDS SUMMARY | 2024-08-03 08:29 | XMS_ITS | Patient Health Record ---
Author Organization [facility] Address [address] [place] [address] Care Team Providers Care Letter Carrier Name Role Phone Osiris Soni MD Primary Care Provider Alban Gerard Jr Unavailable [phone] Allergies No Known Allergies Reason For [...] ORALLY DAILY Oral for 90 Active Ipratropium [place] 0.03 % USE 2 SPRAYS EACH NOSTRILS [...] Problem Status W/U Status Risk Notes Problem 300924098 Colon cancer screening (Z12.11) Active confirmed Problem 644414618 Gastro-esophage al reflux disease without esophagitis (K21.9) Active confirmed Problem 439133849 Generalized abdominal pain (R10.84) Active confirmed Problem 82104036 Other dysphagia (R13.19) Active confirmed Problem Dysphagia (07544529) Dysphagia (R13.10) Active confirmed Problem 13667073 Constipation, unspecified constipation type (K59.00) Active confirmed Problem Gastritis (1989407) Gastritis (K29.70) Active confirmed Problem 43146429 Diarrhea, unspecified type (R19.7) Active confirmed Problem Gastroesophageal reflux disease (193171152) Esophageal reflux disease (K21.9) Active confirmed Problem 90637388 Gastric intestinal metaplasia (K31.A0) Active confirmed Vital Signs Temperature 98.0 degrees Fahrenheit 11/29/2023 Blood pressure diastolic 00 mm Hg 11/29/2023 Height 65.5 in 11/29/2023 Blood pressure systolic 000 mm Hg 11/29/2023 Weight 145 lbs 11/29/2023 BMI 23.76 kg/m2 11/29/2023 Encounters Encounter Location Date Provider Diagnosis [facility] [place] [address] [place], [place] [phone] 01/07/2024 Alban Lopez Jr Colon cancer screening Z12.11 and Family history of colon cancer Z80.0 [facility] [address] [place] [address] 11/29/2023 Alban John Toscano Gastro-esophageal reflux disease [...] Insured Coverage Start Date Coverage End Date [facility] [address] [address] [place] [address] [id number] MAGGIE PAULETTE Self - patient is the insured MEDICAID OF [facility] [address] [place] [address] [id number] PAULETTE SERRANO Self - patient is the insured Medical (General) History Medical History History ICD Code Hypertension bipolar disorder GERD, upper endoscopy 3, gastric intestinal metaplasia at one site, 2-3 year followup diverticulitis arthritis neuropathy Colonoscopy 01/31 benign cecal polyp, te n-year followup lupus Surgical History Surgery Date(Month/Year) hysterectomy 1985
--- OUTSIDE RECORDS SUMMARY | 2024-08-03 08:29 | XMS_ITS | Encounter Summary ---
Author Organization [employer] Address [address] [facility] 7[address] [place] [address] Care Team Providers Care Fagot Heater Helper Name Role Phone Unavailable Primary Care Provider Unavailabl e Encounter Details Date Type Department Care Team (Latest Contact Info) Description 03/30/[address] [facility]VERSION[facility] Dental, Provider, DDS Social [...] Description 08/23/2024 1:30 PM EDT Office Visit [facility] ADULT DENTAL [address] [place] [address] Raffy Johnston, DANIEL [address] [place] [address] documented as of this encounter Visit Diagnoses Not on filedocumented in this encounter
--- OUTSIDE RECORDS SUMMARY | 2024-08-03 08:30 | XMS_ITS ---
Author Organization [facility] Address [address] [place] [address] Care Team Providers Care Inspector And Mender Name Role Phone Nae LILLY, Osiris Primary Care Provider Alban Gerard Jr REASON FOR VISIT screening Encounters Encounter Location Date Provider Diagnosis [facility] [place] [address] [place] [phone] 01/07/2024 Alban Lopez Jr Colon cancer screening Z12.11 and Family history of colon cancer Z80.0 Assessments Encounter Date Diagnosis (ICD Code) Assessment Notes Treatment Notes Treatment Clinical Notes Section Notes 01/07/2024 Colon cancer screening (ICD-10 - Z12.11) 01/07/2024 Family history of colon cancer (ICD-10 - Z80.0) Plan Of Treatment No Information Progress Notes * PAULETTE SERRANO MDOB:1955 (69 yo F)Acc No.[id number]:01/07/2024 COLON WITH MAC Patient:?PAULETTE SERRANO Provider:?Alban Lopez MD :1955???Age:68 Y???Sex:Female D ate:01/07/2024 Address:[address] [place] [address] [place], [place] Pcp:Osiris Soni MD Subjective: * Chief Complaints: * ???1. Screening. * Medical History:? Objective: * Vitals:? Assessment: * Assessment: 1.?Colon cancer screening - Z12.11 (Primary)???2.?Family history of colon cancer - Z80.0??? Plan: * Treatment: * Procedure Codes:?58867 DIAGN OSTIC COLONOSCOPY, 0529F INTRVL 3+YRS PTS CLNSCP DOCD, 0528F RCMND FLW-UP 10 YRS DOCD, Modifiers: 1P * * The named appointment provid er may or may not be the originator of this progress note, and it is not deemed complete until electronically signed by the appointment provider. Sign off status: Pending * Provider:?Alban Lopez MD Date:?1 Generated for Ye yepez/Jignesh/eTransmitting on:?08/03/2024 08:29 AM EDT
--- OUTSIDE RECORDS SUMMARY | 2024-08-03 08:30 | XMS_ITS | Clinical Summary ---
Author Organization [employer] Address [address] [facility] 7[address] [place] [address] Care Team Providers Care Law Enforcement Officer Name Role Phone Unavailable Primary Care Provider [...] Description 07/05/2024 3:30 PM EDT Office Visit [facility] [address] [place], [place] [phone] Sudol, Raffy, DMD Systemic lupus erythematosus, unspecified SLE type, [...] Description 08/23/2024 1:30 PM EDT Office Visit [facility] [address] [place] [address] Vickie Raffy, DMD [address] [place] [address] Health Maintenance Due Date Last Done Comments [...] Relevant to Health Maintenance Insurance DENTAL - [facility]
--- OUTSIDE RECORDS SUMMARY | 2024-08-03 08:30 | XMS_ITS | Clinical Summary ---
Author Organization [facility] it Address [address] [place] [address] Care Team Providers Care Cloud Administrator Name Role Phone Osiris Soni MD Primary [...] age to complete this topic Care Teams Cloud Administrator Relationship Specialty Start Date End Date Osiris Soni MD [address] [place] [address] PCP - General Internal Medicine 06/06/11
--- OUTSIDE RECORDS SUMMARY | 2024-08-03 08:30 | XMS_ITS ---
Author Organization [facility] Address [address] [place] [address] Care Team Providers Care Automobile Leasing Supervisor Name Role Phone Nae LILLY, Osiris [...] Active methylPREDNISolone 4 MG PLEASE SEE [facility] FOR DETAILED DIRECTIONS Oral for 28 [...] ORALLY DAILY Oral for 90 Active Ipratropium [place] 0.03 % USE 2 SPRAYS EACH NOSTRILS [...] Problem Status W/U Status Risk Notes Problem 98556916 Gastric intestinal metaplasia (K31.A0) Active confirmed Vital Signs Temperature 98.0 degrees Fahrenheit 11/29/19 24 Blood pressure systolic 000 mm Hg 11/29/19 24 Blood pressure diastolic 00 mm Hg 024 Height 65.5 in 11/29/2023 Weight 145 lbs 11/29/2023 BMI 23.76 kg/m2 11/29/2023 Encounters Encounter Location Date Provider Diagnosis [facility] [address] [place] [address] 11/29/2023 Alban Lopez Jr Gastro-esophageal reflux disease [...] * JESSA SERRANO MDOB:1955 (68 yo F)Acc No.[id number]:11/29/2023 Progress Notes Patient:?GUEVARA SERRANOMEN Cyril Provider:?Alban Lopez MD :1955???Age:68 Y???Sex:Female D ate:11/29/2023 Address:[address] [place], [place] [address] Pcp:Osiris Soni MD Subjective: * Chief Complaints: [...] TABLET ORALLY DAILY Oral , Taking Ipratropium [place] 0.03 % Solution USE 2 SPRAYS EACH [...] Lopez MD Date:?0 11/29/2023 Generated for Ye yepez/Jignesh/eTedwin on:?08/03/2024 08:29 AM EDT History and Physical Notes * HPI [...]
--- OUTSIDE RECORDS SUMMARY | 2024-08-03 08:30 | XMS_ITS ---
Author Name Jenae Larson NP Address [address] [place] [address] Phone [phone] Organization [facility] Care Team Providers Care Chief Fundraising Officer Name Role Phone Jenae Larson Unavailable [phone] Alban Lopez Unavailable [phone] Reason for Referral Not Available Allergies, adverse reactions, alerts Allergen Type Reaction Severity Status Onset Date Prednisone Allergy to substance (disorder) Unknown Active N/A History of medication use Medication Class Instructions Start Date End Date Fluticasone Propionate 50 MCG/ACT Suspension SPRAY 2 SPRAYS INTO EACH NOSTRIL EVERY DAY 2022-05-13 No Data Available Loratadine 10 mg Tab TAKE 1 TABLET BY MO [facility] EVERY DAY 2022-05-13 No Data Available Omeprazole [...] Diclofenac Sodium 1 % Gel BID PRN 2022-10-1506-07-25 Ketoconazole 2 % Shampoo 1 application t [...] 7 days. 2023-02-23 No Data Available Ipratropium [place] 0.03 % Solution USE 2 SPRAYS EACH [...] FOR 7 DAYS 2024-05-03 No Data Available Amoxicillin-Pot Clavulanate 875/125 mg Tab Take 1 tablet PO twice daily for 7 days 2024-07-19 No Data Available Problem List Problem Status Onset Date Resolved Date Atopic eczema Active 2022-10-15 N/A Back pain Active 2022-10-15 N/A Frequent falls Active 2022-10-15 N/A h/o Non-ST elevation (NSTEMI) myocardial infarction Ac tive 2022-10-15 N/A GastritisUC (ulcerative coli tis)GERD (gastroesophageal reflux disease) Active 2022-10-15 N/A Urinary retentionUrinary inc ontinence-OAB (overactive bladder) Active 2022-10-15 N/A Health maintenance examination Active 2023-02-23 N/A Hypertension Active 2022-10-15 N/A Lupus Active 2023-08-30 N/A [facility] Active 2023-08-30 N/A Vaginal yeast infection Resolved 2023-02-232023 Sinus congestion Resolved 2022-10-20 2023-08-30 Pinched nerve Resolved 2023-01-05 2023-08-30 Rheumatoid arthritis with Im munodeficiency due to conditions classified elsewhere Active 2022-10-15 N/A Sinusitis Active 2024-04-11 N/A Bipolar II disorder Active 2022-10-15 N/A Encounters Encounters Type Facility Date of Service Diagnosis/Co mplaint No Data Available [facility] Other specified disorders of nose and nasal sinuses No Data Available [facility] Data [place] [facility] Data [place] [facility] Data [place] [facility] Data [place] [facility] Data [place] [facility] New patient,40-59min; chronic exacerbation, 2 stable chronic or 1 acute illness add add modifier 95 for video (do not use for phone, instead use [id number]) [facility] Rheumatoid arthritis, unspecifiedUlcerative colitis, unspecified, without complicationsAtopic dermatitis, unspecifiedRash and other nonspecific skin eruptionEssential (primary) hypertensionBipolar II disorderGastritis, unspecified, without bleedingDorsalgia, unspecifiedRetention of urine, unspecifiedRepeated fallsGastro-esophageal reflux disease without esophagitisOld myocardial infarction New patient,40-59min; chronic exacerbation, 2 stable chronic or 1 acute illness add add modifier 95 for video (do not use for phone, instead use 96859-44) [facility] ([place] New patient,40-59min; chronic exacerbation, 2 stable chronic or 1 acute illness add add modifier 95 for video (do not use for phone, instead use 41901-03) [facility] New patient,40-59min; chronic exacerbation, 2 stable chronic or 1 acute illness add add modifier 95 for video (do not use for phone, instead use 62131-70) [facility] New patient,40-59min; chronic exacerbation, 2 stable chronic or 1 acute illness add add modifier 95 for video (do not use for phone, instead use 51239-12) [facility] New patient,40-59min; chronic exacerbation, 2 stable chronic or 1 acute illness add add modifier 95 for video (do not use for phone, instead use [id number]) [facility] New patient,40-59min; chronic exacerbation, 2 stable chronic or 1 acute illness add add modifier 95 for video (do not use for phone, instead use 61821-60) [facility] New patient,40-59min; chronic exacerbation, 2 stable chronic or 1 acute illness add add modifier 95 for video (do not use for phone, instead use 23751-61) [facility] No Data Available [facility] Mononeuropathy, unspecified No Data Available [facility] Essential (primary) hypertensionBipolar II disorderOld myocardial infarctionRheumatoid arthritis, unspecifiedGastritis, unspecified, without bleedingUlcerative colitis, unspecified, without complicationsDorsalgia, unspecifiedAtopic dermatitis, unspecifiedRash and other nonspecific skin eruptionRetention of urine, unspecifiedRepeated fallsGastro-esophageal reflux disease without esophagitisNasal congestionMononeuropathy, unspecified No Data Available [facility] Data [place] [facility] No Data Available [facility] No Data Available [facility] No Data [place] [facility] No Data Available [facility]23 Ulcerative colitis, unspecif ied, without complicationsGastritis, unspecified, without bleedingGastro-esophageal reflux disease without esophagitisRetention of urine, unspecifiedUnspecified urinary incontinenceOveractive bladder No Data Available [facility] [place] Acute candidiasis of vulva a nd vaginaEncntr for general adult medical exam w/o abnormal findingsEssential (primary) hypertension No Data Available [facility] [place] No Data Available [facility] [place] No Data Available [facility] [place] No Data Available [facility] [place] No Data Available [facility] [place]23 Rheumatoid arthritis, unspec ified No Data Available [facility] [place]23 Rheumatoid arthritis, unspec ified No Data Available [facility] [place] No Data Available [facility] [place] No Data Available [facility] [place] No Data Available [facility] [place]23 Rheumatoid arthritis, unspec ified No Data Available [facility] [place] No Data Available [facility] [place] Estab. patient 30-39min; chronic exacerbation, 2 stable chronic or 1 acute illness add add modifier 95 for video, (do not use for phone, instead use 65659-42) [facility] Essential (primary) hypertensionBipolar II disorderOld [...] (do not use for phone, instead use 77017-67) [facility] Estab. patient 30-39min; chronic exacerbation, 2 stable chronic or 1 acute illness add add modifier 95 for video, (do not use for phone, instead use 53631-55) [facility] Estab. patient 30-39min; chronic exacerbation, 2 stable chronic or 1 acute illness add add modifier 95 for video, (do not use for phone, instead use 73671-68) [facility] Estab. patient 30-39min; chronic exacerbation, 2 stable chronic or 1 acute illness add add modifier 95 for video, (do not use for phone, instead use 82113-64) [facility] Estab. patient 30-39min; chronic exacerbation, 2 stable chronic or 1 acute illness add add modifier 95 for video, (do not use for phone, instead use 65150-61) [facility] Estab. patient 30-39min; chronic exacerbation, 2 stable chronic or 1 acute illness add add modifier 95 for video, (do not use for phone, instead use 09764-57) [facility] Estab. patient 30-39min; chronic exacerbation, 2 stable chronic or 1 acute illness add add modifier 95 for video, (do not use for phone, instead use 10244-71) [facility] Estab. patient 30-39min; chronic exacerbation, 2 stable chronic or 1 acute illness add add modifier 95 for video, (do not use for phone, instead use 11640-72) [facility] Estab. patient 30-39min; chronic exacerbation, 2 stable chronic or 1 acute illness add add modifier 95 for video, (do not use for phone, instead use 10971-23) [facility] Estab. patient 10-29min; 1 minor problem; add add modifier 95 for video, modifier 93 for phone [facility] Chronic sinusitis, unspecifi ed Estab. patient 10-29min; 1 minor problem; add add modifier 95 for video, modifier 93 for phone [facility] Estab. patient 10-29min; 1 minor problem; add add modifier 95 for video, modifier 93 for phone [facility] Estab. patient 10-29min; 1 minor problem; add add modifier 95 for video, modifier 93 for phone [facility] Estab. patient 10-29min; 1 minor problem; add add modifier 95 for video, modifier 93 for phone [facility] [place] Essential (primary) hypertensionBipolar [...] 95 for video, modifier 93 for phone [facility] Estab. patient 10-29min; 1 minor problem; add add modifier 95 for video, modifier 93 for phone [facility] Estab. patient 10-29min; 1 minor problem; add add modifier 95 for video, modifier 93 for phone [facility] Estab. patient 10-29min; 1 minor problem; add add modifier 95 for video, modifier 93 for phone [facility]14[place] Estab. patient 10-29min; 1 minor problem; add add modifier 95 for video, modifier 93 for phone [facility]/14[place] Estab. patient 10-29min; 1 minor problem; add add modifier 95 for video, modifier 93 for phone [facility] [place] Acute candidiasis of vulva a nd vagina Estab. patient 10-29min; 1 minor problem; add add modifier 95 for video, modifier 93 for phone [facility] [place]24 Acute upper respiratory infe ction, unspecified Estab. patient 10-29min; 1 minor problem; add add modifier 95 for video, modifier 93 for phone [facility] 07[place] Estab. patient 10-29min; 1 minor problem; add add modifier 95 for video, modifier 93 for phone [facility] 07[place]24 Vital Signs Date of Collection Vitals 2022-10-20 [...] - 81.0 /minPain Scale - 3.0 {score} 2024-07-19 09:11:42 BP Diastolic - 68.0 mm[Hg]BP Systolic - 94.0 mm[Hg]Heart Rate - 115.0 /minBody Temperature - 37.94 Arabella Social History Sex Female History of Procedures Procedures Service Procedure code Service date Servicing provider Phone# No Data Available [id number] 2022-10-20 No Data Available No Data Available [...] (do not use for phone, instead use 95107-30) [id number] 2022-10-15 No Data Available No Data Availa [...] No Data Avail able No Data Available [id number] 2023-01-05 No Data Available No Data Available No Data Available [id number] 2023-01-16 No Data Available No Data Available [...] No Data Anastacia ilable No Data Available [id number] 2023-02-03 No Data Available No Data Available No Data Available [id number] 2023-02-23 No Data Available No Data Available SBP 130-139 (3075F) 3075F 2023-02-23 No Data Availabl e No Data Available DBP 80-89 (3079F) 3079F 2023-02-23 No Data Available No Data Available Functional Status Assessed (1170F) 1170F 2023-02-23 No Data Available No Data Avail able Pain Assessment - NO pain present (1126F) 1126F 2023-02-23 No Data Available No Data A vailable No Data Available [id number] 2023-06-11 No Data Available No Data Available No Data Available [id number] 2023-07-09 No Data Available No Data Available Medication List Documented (1159F) 1159F 2023-07-09 No Data Available No Data Anastacia ilable SBP >= 140 3077F 2023-07-09 No Data Available No Data Available DBP <80 (3078F) 3078F 2023-07-09 No Data Available No Data Available No Data Available [id number] 2023-07-13 No Data Available No Data Available [...] (do not use for phone, instead use 11386-39) 51876 2023-08-30 No Data Available No Data Availa [...] 95 for video, modifier 93 for phone [id number] 2024-04-12 No Data Available No Data Availa ble No Data Available 1159 2024-04-12 No Data Available No Data Available SBP >= 140 3077F 2024-04-12 No Data Available No Data Available DBP <80 (3078F) 3078F 2024-04-12 No Data Available No Data Available Estab. patient 10-29min; 1 minor problem; add add modifier 95 for video, modifier 93 for phone [id number] 2024-04-14 No Data Available No Data Availa [...] 95 for video, modifier 93 for phone [id number] 2024-05-09 No Data Available No Data Availa ble Estab. patient 10-29min; 1 minor problem; add add modifier 95 for video, modifier 93 for phone [id number] 2024-07-19 No Data Available No Data Availa ble SBP < 130 (3074F) 3074F 2024-07-19 No Data Available No Data Available DBP <80 (3078F) 3078F 2024-07-19 No Data Available No Data Available Functional Status Functional Category Effective Dates Cognition [...] other health careSinusitis 2024-05-09 11:14:53 Vaginal jerald 2024-07-19 09:11:42 Upper respiratory tr act infection, unspecified type Plan of Care Date of Service Plans 2022-10-20 13:56:36 Televideo 20-29min; 1 stable chronic or 2 minor; add modifier 95Continue to see PCP. Follow-up with [facility] [...] >= 140Continue to see PCP. Follow-up with [facility] as [...] hours before bedtime. 2023-01-05 08:48:39 Phone (patient, georgiae nt, or guardian); 11-20 minutes of medical [...] stool max 4 times daily #30 capsule [id number] New Dicyclomine 20 mg Tab TAKE 1 TABLET BY MOUTH AC/HS for stomach pain/spasms #60 tablet [id number] New Ondansetron 8 mg Tab Disintegrating 1 [...] sara-care- personal hygiene wipes- hand soap and commercial electrician as per prior order- box of medium gloves- to follow up with case managers and PCP for further monitoring and management hx: 10/15/22: Reports urinary retention and managed with Flomax1. Dz management discussed2. Continue to follow up with PCP 2023-02-23 11:16:05 New Diflucan 150 mg Tab Take 1 tablet PO. May take 1 tablet 72 hours later if symptoms have not improved. #2 tablet [id number] Miconazole Nitrate 2 % Crm Vaginal Apply to affected area daily x 7 days. #1 applicator [id number] (patient, parent, or guardian); 11-20 minutes of [...] Documented (1125F)Continue to see PCP. Follow-up with [facility] as [...] to limit dietary sodium3. Weigh daily02/23/23 BP 134/808/06/04: Currently taking citalopram, bupropion, hydroxyzine. GEETA 7 [...] Follow up with Psychiatry for provider assignment10/15/22: [facility] done in 09/2022. No interventions.1. [...] for and report early any s/s of oplgkttzz02/22/23- continue plan of care and conservative measures eRx New Loperamide 2 mg Cap 2 tablets after first loose stool, then take 1 tablet after each loose stool max 4 times daily #30 capsule [id number] New Dicyclomine 20 mg Tab TAKE 1 TABLET BY MOUTH AC/HS for stomach pain/spasms #60 tablet [id number] New Ondansetron 8 mg Tab Disintegrating 1 [...] sara-care- personal hygiene wipes- hand soap and commercial electrician as per prior order- box of medium gloves- to follow up with case managers and PCP for further monitoring and management [...] they most likely to go back?Please call [facility] if you have a change in condition, [...] for phoneContinue to see PCP. [facility] for any acute or disease [...] Follow up with Psychiatry for provider assignment10/15/22: [facility] done in 09/2022. No interventions.1. F/u with cardiology and or PCP as scheduled2. Complete ECHO as scheduled10/15/22: Reports joint pain and reports relief with Diclofenac gel.4/26/24: bilateral hand pain - Left more than [...] for and report early any s/s of brdskhlov82/22/23- continue plan of care and conservative measures eRx New Loperamide 2 mg Cap 2 tablets after first loose stool, then take 1 tablet after each loose stool max 4 times daily #30 capsule [id number] New Dicyclomine 20 mg Tab TAKE 1 TABLET BY MOUTH AC/HS for stomach pain/spasms #60 tablet [id number] New Ondansetron 8 mg Tab Disintegrating 1 [...] sara-care- personal hygiene wipes- hand soap and commercial electrician as per prior order- box of medium gloves- to follow up with case managers and PCP for further monitoring and management [...] they most likely to go back?Please call [facility] if you have a change in [...] for phoneContinue to see PCP. Follow-up with [facility] as needed for any acute or disease education needs that may arise 24/7.Diflucan 150 mg Tab Take 1 tablet PO. May take 1 tablet 72 hours later if symptoms have not improved. #2 tablet [id number] underwearNotify for persistant symptoms. 2024-07-19 09:11:42 Televideo 10-29min; 1 minor problem; add add modifier 95 for video, modifier 93 for phoneContinue to see PCP. Follow-up with [facility] as needed for any acute or disease education needs that may arise 05/10.Amoxicillin-Pot Clavulanate 875/125 mg Tab Take 1 tablet PO twice daily for 7 days #14 tablet [id number] to tolerate prednisoneEnc use of alb inhaler Q 4 hrs prnContinue flonase and antihistamine. Tyelnol prnRest and hydrateNotify for worsening symptoms. Goals Date Goal 2022-10-20 do a [...]
[2024-08-03 08:58] VITALS: BP 130/80; PULSE 76; O2SAT 98; BMI 25.5
--- NOTE | 2024-08-03 08:58 | A.OFFVIS_ITS ---
Vital Signs 08/03/24 08:58 Height 5 ft 4 in Weight 148 lb 5.938 oz BMI 25.5 BP 130/80 Blood Pressure Location Rt brachial Position Sitting Pulse 76 Pulse Source Pulse Oximeter Pulse Oximetry (%) 98 Oxygen Delivery Method Room Air Intake Visit Reasons: SLE Intake Note: Patient presents for SLE. Allergies prednisone Adverse Reaction (Intermediate, Verified 08/03/24 09:00) Anxiety HPI HPI SLE: Details: Daughter accompanies patient. She is having chronic right knee pain. Difficulty with walking and going up stairs. She sways to the right side when she walks long distances. She uses a cane sometimes to walk. She has pain in her hands. Diagnosis of carpal tunnel syndrome. Wrist braces not fit. She has worn it in a at night but has to stop wearing it because it is too large. Pain management diagnosed her with carpal tunnel syndrome. She had EMG study in the past. She takes Tylenol 1 tablet daily. She was told to avoid too much Tylenol because of her liver function tests. Denies fevers. +Dyspnea. Seeing assistant sales manager and having PFT. +pleurisy. No oral ulcers. +dry eyes. +dry mouth. She has frothy urine. She drinks a lot of water and urinates frequently. Denies dysuria. She has dysphagia to pills and solids. Dysphagia started 2 weeks ago. She has malar erythema. Spontaneous onset of red spots on her arms and legs that become hyperpigmented. She has pruritus in her extremities when the red spots occur. Red spots also occur on her face and neck. [facility] Medical History Allergic rhinitis Dyspnea on exertion Restrictive lung disease Venous insufficiency Right carotid bruit Diverticulitis Bipolar 1 disorder GERD (gastroesophageal reflux disease) History of cervical cancer Irritable bowel syndrome with constipation Weak urinary stream Surgical menopause Osteopenia Essential hypertension Dyslipidemia Anxiety Surgical History History of cardiac cath Hx of esophagogastroduodenoscopy Hx of colonoscopy History of partial hysterectomy Family History Father Throat cancer Mother No problems noted. Brother No problems noted. Sister No problems noted. Sister No problems noted. Sister No problems noted. Sister Hyperlipidemia HTN (hypertension) Depression Myocardial infarction Daughter No problems noted. Daughter No problems noted. Daughter No problems noted. Daughter No problems noted. Paternal Aunt Rheumatoid arthritis Other Mental health disorder Substance use disorder Social History (Reviewed 08/03/24 @ 08:58 by Ying Miller [facility]) Housing: Apartment Alcohol intake: current Alcohol intake frequency: does not drink Alcohol type: wine Patient Tobacco Use Status: Former Tobacco user e-Cigarette/Vaping Use: Never Used Advance Directives Date on File: 01/15/23 service: No Current occupational status: unemployed Cognitive needs: No Hearing needs: No Vision needs: No Physical Exam Vital Signs: Last Vital Signs Pulse 76 08/03/24 08:58 BP 130/80 08/03/24 08:58 Pulse Ox 98 08/03/24 08:58 Oxygen Delivery Method Room Air 08/03/24 08:58 BMI result Body Mass Index 25.5 Const Other: General: Comfortable CVS: RRR Respiratory: clear to auscultation bilaterally. Good respiratory effort Skin: She has a few erythematous spots on her arms and neck. Hyperpigmented circular lesion left anterior lower banks. MSK: No tenderness of small joints in hands or wrists. Normal range of motion of upper extremities. Tender right knee along joint line. Normal range of motion of lower extremity. She has abnormal gait with switching to the right side. Assessment & Plan Assessment & Plan (1) SLE (systemic lupus erythematosus): Comment: She is presenting with erythematous spots with spontaneous onset and resolution leaving hyperpigmented area. She also has telangiectasia and swallowing difficulties. I am working up for systemic sclerosis with lab work and barium swallow. She also has frothy urine, which is concerning for proteinuria. Prior labs continue to reveal serological activity of SLE with elevated double- stranded DNA. Rheumatology history: dx 08/2023 (inflammatory arthritis, ? Skin rashes, telangiectasia + SCOTT, dsDNA, RF). HCQ 08/2023- Code(s): M32.9 - Systemic lupus erythematosus, unspecified Category: Medical Qualifiers: Systemic lupus erythematosus organ involvement: other Systemic lupus erythematosus type: unspecified Qualified Code(s): M32.19 - Other organ or system involvement in systemic lupus erythematosus Plan: Labs for connective tissue disease workup and SLE disease activity ordered Labs for drug monitoring and high-risk medication ordered Continue hydroxychloroquine 300 mg daily. 10/14/2023. She was supposed to return a month later for visual field test. I am requesting report Return to clinic in 3 months (2) Rash: Code(s): R21 - Rash and other nonspecific skin eruption Category: Medical Plan: See above (3) Dysphagia: Code(s): R13.10 - Dysphagia, unspecified Category: Medical Plan: Barium swallow ordered (4) Knee osteoarthritis: Comment: Constant pain Code(s): M17.9 - Osteoarthritis of knee, unspecified Category: Medical Qualifiers: Laterality: right Osteoarthritis type: primary Qualified Code(s): M17.11 - Unilateral primary osteoarthritis, right knee Plan: X-ray right knee ordered to determine if osteoarthritis is progressing Right hinged knee brace prescribed Physical therapy ordered for lower extremity strengthening including gait training Continue Tylenol 500 mg daily After lab results are back, we will consider sending prescription for meloxicam 15 mg daily Return to clinic in 3 months or sooner if needed (5) Primary osteoarthritis of both hands: Comment: Uncontrolled pain Code(s): M19.041 - Primary osteoarthritis, right hand; M19.042 - Primary osteoarthritis, left hand Category: Medical Plan: After lab results are back, I will consider prescribing meloxicam 15 mg daily Continue Tylenol 500 mg daily Return to clinic in 3 months (6) Transaminitis: Code(s): R74.01 - Elevation of levels of liver transaminase levels Category: Medical Plan: Repeating liver function tests today She will continue to take 1 tablet of Tylenol 500 mg daily If she continues to have transaminitis, she will need further workup with imaging Return to clinic in 3 months Orders: Orders XR knee RT 2V Today M17.0 - Bilateral primary osteoarthritis of knee Alanine Aminotransferase Today M32.9 - Systemic lupus erythematosus, unspecified, R21 - Rash and other nonspecific skin eruption C Reactive Protein Today M32.9 - Systemic lupus erythematosus, unspecified, R21 - Rash and other nonspecific skin eruption Erythrocyte Sedimentation Rate Today M32.9 - Systemic lupus erythematosus, unspecified, R21 - Rash and other nonspecific skin eruption UA w Microscopic Today M32.19 - Other organ or system involvement in systemic lupus erythematosus, R21 - Rash and other nonspecific skin eruption Anti DNA DS Antibody Today M32.9 - Systemic lupus erythematosus, unspecified, R21 - Rash and other nonspecific skin eruption Sjogren's Antibodies Today M32.9 - Systemic lupus erythematosus, unspecified, R21 - Rash and other nonspecific skin eruption Anti-Centromere B Antibodies Today M32.19 - Other organ or system involvement in systemic lupus erythematosus, R21 - Rash and other nonspecific skin eruption FL barium swallow Today R13.10 - Dysphagia, unspecified Complete Blood Count Man Dif Today M32.9 - Systemic lupus erythematosus, unspecified, R21 - Rash and other nonspecific skin eruption Aspartate Amino Transferase Today M32.9 - Systemic lupus erythematosus, unspecified, R21 - Rash and other nonspecific skin eruption Creatinine Today M32.9 - Systemic lupus erythematosus, unspecified, R21 - Rash and other nonspecific skin eruption Complement C3 Today M32.9 - Systemic lupus erythematosus, unspecified, R21 - Rash and other nonspecific skin eruption Complement C4 Today M32.9 - Systemic lupus erythematosus, unspecified, R21 - Rash and other nonspecific skin eruption Protein Creatinine Ratio, Ur Today M32.9 - Systemic lupus erythematosus, unspecified, R21 - Rash and other nonspecific skin eruption Scleroderma 70 Antibody Today M32.19 - Other organ or system involvement in systemic lupus erythematosus, R21 - Rash and other nonspecific skin eruption PT Evaluation and Treatment Today M17.9 - Osteoarthritis of knee, unspecified Medications: New leg brace (Knee Support Brace) As directed Hinged knee brace right Dx: osteoarthritis 1 ea 0RF Changed From hydroxychloroquine 300 mg (1.5 x 200 mg) PO DAILY 135 tabs 0RF M32.19 - Other organ or system involvement in systemic lupus erythematosus To hydroxychloroquine 300 mg (1.5 x 200 mg) PO DAILY 90 days 135 tabs 1RF M32.19 - Other organ or system involvement in systemic lupus erythematosus Coding Level of Care Code Est Pt Level 4 (59595) Complex EM visit Add On G2211 Diagnoses Systemic lupus erythematosus with other organ involvement, unspecified SLE type M32.19 Systemic lupus erythematosus organ involvement: other Systemic lupus erythematosus type: unspecified Rash R21 Dysphagia R13.10 Primary osteoarthritis of right knee M17.11 Laterality: right Osteoarthritis type: primary Primary osteoarthritis of both hands M19.041; M19.042 Transaminitis R74.01
== END 2024-08-03 10:24 | disposition home or self-care (01) ==
LOC: HO.RHES 08:18
PROVIDERS: PCP Internal Medicine; Visit Provider Internal Medicine Rheumatology
DX: M32.19 Other organ or system involvement in systemic lupus erythematosus (principal); R21 Rash and other nonspecific skin eruption; R13.10 Dysphagia, unspecified; M17.11 Unilateral primary osteoarthritis, right knee; M19.041 Primary osteoarthritis, right hand; M19.042 Primary osteoarthritis, left hand; R74.01 Elevation of levels of liver transaminase levels
CPT/HCPCS: 99214; G2211

== ENCOUNTER 2024-08-03 08:17 | Outpatient (REF) | payer OTHER, SELFPAY ==
--- OUTSIDE RECORDS SUMMARY | 2024-08-03 11:04 | XMS_ITS | Encounter Summary ---
Author Organization [employer] Address [address] [facility] [address] [place] [address] Care Team Providers Care Patient Day Coordinator Name Role Phone Unavailable Primary Care Provider Unavailabl e Encounter Details Date Type Department Care Team (Latest Contact Info) Description 03/30/2019 Abstract [facility] CONVERSIONS Dental, Provider, DDS Social [...] Description 08/23/2024 1:30 PM EDT Office Visit [facility]ULT [facility] [address] [place] [address] Raffy Johnston, DANIEL [address] [place] [address] documented as of this encounter Visit Diagnoses Not on filedocumented in this encounter
--- OUTSIDE RECORDS SUMMARY | 2024-08-03 11:04 | XMS_ITS | Clinical Summary ---
Author Organization [employer] Address [address] [facility] [address] [place] [address] Care Team Providers Care Leasing Manager Name Role Phone Unavailable Primary Care [...] 3:30 PM EDT Office Visit [facility] ADULT DENTAL [address] [place], [place] [id number] Sudol, Raffy, DMD Systemic lupus erythematosus, unspecified [...] 1:30 PM EDT Office Visit [facility] ADULT DENTAL [address] [place] [address] Vickie Raffy, DMD [address] [place] [address] Health Maintenance Due Date Last Done Comments [...] Relevant to Health Maintenance Insurance DENTAL - [facility]
--- OUTSIDE RECORDS SUMMARY | 2024-08-03 11:04 | XMS_ITS ---
Author Name Jenae Larson NP Address [address] [place] [address] Phone [phone] Organization [facility] Care Team Providers Care Security Monitor Name Role Phone Jenae Larson Unavailable [phone] Alban Lopez Unavailable [phone] Reason for Referral Not Available Allergies, adverse reactions, alerts Allergen Type Reaction Severity Status Onset Date Prednisone Allergy to substance (disorder) Unknown Active N/A History of medication use Medication Class Instructions Start Date End Date Fluticasone Propionate 50 MCG/ACT Suspension SPRAY 2 SPRAYS INTO EACH NOSTRIL EVERY DAY 2022-05-13 No Data Available Loratadine 10 mg Tab TAKE 1 TABLET BY MO [facility] EVERY DAY 2022-05-13 No Data Available Omeprazole [...] 7 days. 2023-02-23 No Data Available Ipratropium [place] 0.03 % Solution USE 2 SPRAYS EACH NOSTRILS 1-3 TIMES DAILY 15 MINUTES BEFORE MEALS 2023-05-06 No Data Available Diclofenac Sodium 1 % Gel 4 grams topica lly to affected area 4 times per day PRN 2023-07-09 No Data Available Loratadine 10 mg Tab TAKE 1 TABLET BY MO [facility] EVERY DAY 2023-07-27 No Data Available Escitalopram Oxalate 20 mg Tab No Data Available 06-10 No Data Available Triamcinolone Acetonide 0.1 % Oint No Data Available 2022-08-20 No Data Available Hydroxychloroquine Sulfate 2 00 mg Tab TAKE 1 AND 1/2 TABLETS BY MOUTH EVERY DAY 2023-08-19 No Data Available Terazosin 1 mg Cap TAKE 1 CAPSULE BY [facility] EVERYDAY AT BEDTIME 2023-12-14 No Data Available [...] Active 2023-08-30 N/A Other problems [facility] and other [facility] Active 2023-08-30 N/A Vaginal yeast infection Resolved 2023-02-232023 Sinus congestion Resolved 2022-10-20 2023-08-30 Pinched nerve Resolved 2023-01-05 2023-08-30 Rheumatoid arthritis with Im munodeficiency due to conditions classified elsewhere Active 2022-10-15 N/A Sinusitis Active 2024-04-11 N/A Bipolar II disorder Active 2022-10-15 N/A Encounters Encounters Type Facility Date of Service Diagnosis/Co mplaint No Data Available [facility] Other specified disorders of nose and nasal sinuses No Data Available [facility] No Data Available [facility] No Data Available [facility] No Data Available [facility] No Data Available [facility] No Data Available [facility] New patient,40-59min; chronic exacerbation, 2 stable chronic or 1 acute illness add add modifier 95 for video (do not use for phone, instead use [id number]) [facility] Rheumatoid arthritis, unspecifiedUlcerative colitis, unspecified, without complicationsAtopic dermatitis, unspecifiedRash and other nonspecific skin eruptionEssential (primary) hypertensionBipolar II disorderGastritis, unspecified, without bleedingDorsalgia, unspecifiedRetention of urine, unspecifiedRepeated fallsGastro-esophageal reflux disease without esophagitisOld myocardial infarction New patient,40-59min; chronic exacerbation, 2 stable chronic or 1 acute illness add add modifier 95 for video (do not use for phone, instead use 68609-02) [facility], ([place]) 10/15/20[place] New patient,40-59min; chronic exacerbation, 2 stable chronic or 1 acute illness add add modifier 95 for video (do not use for phone, instead use 67094-21) [facility] New patient,40-59min; chronic exacerbation, 2 stable chronic or 1 acute illness add add modifier 95 for video (do not use for phone, instead use 74307-59) [facility] New patient,40-59min; chronic exacerbation, 2 stable chronic or 1 acute illness add add modifier 95 for video (do not use for phone, instead use 39640-54) [facility] New patient,40-59min; chronic exacerbation, 2 stable chronic or 1 acute illness add add modifier 95 for video (do not use for phone, instead use 89752-65) [facility] New patient,40-59min; chronic exacerbation, 2 stable chronic or 1 acute illness add add modifier 95 for video (do not use for phone, instead use 96289-27) [facility] New patient,40-59min; chronic exacerbation, 2 stable chronic or 1 acute illness add add modifier 95 for video (do not use for phone, instead use 87024-10) [facility] No Data Available [facility]20[place] Mononeuropathy, unspecified No Data Available [facility] Essential (primary) hypertensionBipolar II disorderOld myocardial infarctionRheumatoid arthritis, unspecifiedGastritis, unspecified, without bleedingUlcerative colitis, unspecified, without complicationsDorsalgia, unspecifiedAtopic dermatitis, unspecifiedRash and other nonspecific skin eruptionRetention of urine, unspecifiedRepeated fallsGastro-esophageal reflux disease without esophagitisNasal congestionMononeuropathy, unspecified No Data Available [facility] No Data Available [facility] No Data Available [facility] No Data Available [facility] No Data Available [facility] No Data Available [facility] 02[place]/2023 Ulcerative colitis, unspecif ied, without complicationsGastritis, unspecified, without bleedingGastro-esophageal reflux disease without esophagitisRetention of urine, unspecifiedUnspecified urinary incontinenceOveractive bladder No Data Available [facility] [place] Acute candidiasis of vulva a nd vaginaEncntr for general adult medical exam w/o abnormal findingsEssential (primary) hypertension No Data Available [facility] [place]20[place] No Data Available [facility] [place] No Data Available [facility] [place] No Data Available [facility] [place] No Data Available [facility] [place]2023 Rheumatoid arthritis, unspec ified No Data Available [facility] [place]2023 Rheumatoid arthritis, unspec ified No Data Available [facility] [place]2023 No Data Available [facility] [place]2023 No Data Available [facility] [place]20[place] No Data Available [facility] [place] 07[place]13[place]2023 Rheumatoid arthritis, unspec ified No Data Available [facility] [place]2023 No Data Available [facility] [place] Estab. patient 30-39min; chronic exacerbation, 2 stable chronic or 1 acute illness add add modifier 95 for video, (do not use for phone, instead use 70736-46) [facility]20[place] Essential (primary) hypertensionBipolar II [...] (do not use for phone, instead use 58373-59) [facility] Estab. patient 30-39min; chronic exacerbation, 2 stable chronic or 1 acute illness add add modifier 95 for video, (do not use for phone, instead use 65019-10) [facility] Estab. patient 30-39min; chronic exacerbation, 2 stable chronic or 1 acute illness add add modifier 95 for video, (do not use for phone, instead use 64813-98) [facility] Estab. patient 30-39min; chronic exacerbation, 2 stable chronic or 1 acute illness add add modifier 95 for video, (do not use for phone, instead use 44722-07) [facility]20[place] Estab. patient 30-39min; chronic exacerbation, 2 stable chronic or 1 acute illness add add modifier 95 for video, (do not use for phone, instead use 48677-07) [facility]20[place] Estab. patient 30-39min; chronic exacerbation, 2 stable chronic or 1 acute illness add add modifier 95 for video, (do not use for phone, instead use 20199-64) [facility]20[place] Estab. patient 30-39min; chronic exacerbation, 2 stable chronic or 1 acute illness add add modifier 95 for video, (do not use for phone, instead use 49700-16) [facility]20[place] Estab. patient 30-39min; chronic exacerbation, 2 stable chronic or 1 acute illness add add modifier 95 for video, (do not use for phone, instead use 48145-64) [facility]20[place] Estab. patient 30-39min; chronic exacerbation, 2 stable chronic or 1 acute illness add add modifier 95 for video, (do not use for phone, instead use 22306-65) [facility] Estab. patient 10-29min; 1 minor problem; add add modifier 95 for video, modifier 93 for phone [facility]/20[place] Chronic sinusitis, unspecifi ed [...] 95 for video, modifier 93 for phone [facility] [place]20[place] Essential (primary) hypertensionBipolar [...] 95 for video, modifier 93 for phone [facility] [place] Acute candidiasis of vulva a nd vagina Estab. patient 10-29min; 1 minor problem; add add modifier 95 for video, modifier 93 for phone [facility] [place]2024 Acute upper respiratory infe ction, unspecified Estab. patient 10-29min; 1 minor problem; add add modifier 95 for video, modifier 93 for phone [facility]19/20[place] Estab. patient 10-29min; 1 minor problem; add add modifier 95 for video, modifier 93 for phone [facility] [place] 07[place]19/2024 Vital Signs Date of Collection [...] date Servicing provider Phone# No Data Available [id number] 2022-10-20 No Data Available No Data Available [...] (do not use for phone, instead use 97038-57) [id number] 2022-10-15 No Data Available No Data Availa [...] No Data Avail able No Data Available [id number] 2023-01-05 No Data Available No Data Available No Data Available [id number] 2023-01-16 No Data Available No Data Available [...] No Data Anastacia ilable No Data Available [id number] 2023-02-03 No Data Available No Data Available No Data Available [id number] 2023-02-23 No Data Available No Data Available SBP 130-139 (3075F) 3075F 2023-02-23 No Data Availabl e No Data Available DBP 80-89 (3079F) 3079F 2023-02-23 No Data Available No Data Available Functional Status Assessed (1170F) 1170F 2023-02-23 No Data Available No Data Avail able Pain Assessment - NO pain present (1126F) 1126F 2023-02-23 No Data Available No Data A vailable No Data Available [id number] 2023-06-11 No Data Available No Data Available No Data Available [id number] 2023-07-09 No Data Available No Data Available Medication List Documented (1159F) 1159F 2023-07-09 No Data Available No Data Anastacia ilable SBP >= 140 3077F 2023-07-09 No Data Available No Data Available DBP <80 (3078F) 3078F 2023-07-09 No Data Available No Data Available No Data Available [id number] 2023-07-13 No Data Available No Data Available [...] (do not use for phone, instead use 20541-58) [id number] 2023-08-30 No Data Available No Data Availa [...] 95 for video, modifier 93 for phone [id number] 2024-04-12 No Data Available No Data Availa ble No Data Available [id number] 2024-04-12 No Data Available No Data Available SBP >= 140 3077F 2024-04-12 No Data Available No Data Available DBP <80 (3078F) 3078F 2024-04-12 No Data Available No Data Available Estab. patient 10-29min; 1 minor problem; add add modifier 95 for video, modifier 93 for phone [id number] 2024-04-14 No Data Available No Data Availa [...] 95 for video, modifier 93 for phone [id number] 2024-05-09 No Data Available No Data Availa ble Estab. patient 10-29min; 1 minor problem; add add modifier 95 for video, modifier 93 for phone [id number] 2024-07-19 No Data Available No Data Availa [...] stool max 4 times daily #30 capsule AFq8wHf New Dicyclomine 20 mg Tab TAKE 1 TABLET BY MOUTH AC/HS for stomach pain/spasms #60 tablet LBa4vUh New Ondansetron 8 mg Tab Disintegrating 1 [...] [facility]- personal hygiene wipes- hand soap and director of laboratory operations as per prior order- box of medium [...] if symptoms have not improved. #2 tablet KWv0Fuw Miconazole Nitrate 2 % Crm Vaginal Apply to affected area daily x 7 days. #1 applicator [id number] (patient, parent, or guardian); 11-20 minutes of [...] up with Psychiatry for provider assignment10/15/22: [facility] done in 09/2022. No interventions.1. F/u [...] stool max 4 times daily #30 capsule BNi7tYg New Dicyclomine 20 mg Tab TAKE 1 TABLET BY MOUTH AC/HS for stomach pain/spasms #60 tablet TBs4cDk New Ondansetron 8 mg Tab Disintegrating 1 [...] sara-care- personal hygiene wipes- hand soap and director of laboratory operations as per prior order- box of medium [...] for phoneContinue to see PCP. Follow[facility] with [facility] as needed for any acute or disease [...] up with Psychiatry for provider assignment10/15/22: [facility] done in 09/2022. No interventions.1. F/u [...] for and report early any s/s of biwtucset17/22/23- continue plan of care and conservative measures eRx New Loperamide 2 mg Cap 2 tablets after first loose stool, then take 1 tablet after each loose stool max 4 times daily #30 capsule SIs6zWr New Dicyclomine 20 mg Tab TAKE 1 TABLET BY MOUTH AC/HS for stomach pain/spasms #60 tablet TPx6tHn New Ondansetron 8 mg Tab Disintegrating 1 [...] sara-care- personal hygiene wipes- hand soap and director of laboratory operations as per prior order- box of medium [...] they most likely to go back?Please call [facility] if you have a change in [...] for phoneContinue to see PCP. Follow-up with [facility] as needed for any acute or disease education needs that may arise 24/7.Diflucan 150 mg Tab Take 1 tablet PO. May take 1 tablet 72 hours later if symptoms have not improved. #2 tablet [id number] underwearNotify for persistant symptoms. 2024-07-19 09:11:42 Televideo 10-29min; 1 minor problem; add add modifier 95 for video, modifier 93 for phoneContinue to see PCP. Follow-up with [facility] as needed for any acute or disease education needs that may arise 05/10.Amoxicillin-Pot Clavulanate 875/125 mg Tab Take 1 tablet PO twice daily for 7 days #14 tablet BFz2Chngzt to tolerate prednisoneEnc use of alb inhaler [...]
--- OUTSIDE RECORDS SUMMARY | 2024-08-03 11:04 | XMS_ITS | Clinical Summary ---
Author Organization [employer] [facility] it Address [address] [place] [address] Care Team Providers Care Pulp Press Tender Name Role Phone Osiris Soni MD Primary [...] age to complete this topic Care Teams Pulp Press Tender Relationship Specialty Start Date End Date Osiris Soni MD [address] [place] [address] PCP - General Internal Medicine 06/06/11
--- OUTSIDE RECORDS SUMMARY | 2024-08-03 11:04 | XMS_ITS | Encounter Summary ---
Author Organization [employer] Address [address] [facility] [address] [place] [address] Care Team Providers Care Setup Operator Name Role Phone Unavailable Primary Care Provider Unavailabl e Encounter Details Date Type Department Care Team (Latest Contact Info) Description 08/26/2020 Abstract [facility] CONVERSIONS Dental, Provider, DDS Social History [...] Description 08/23/2024 1:30 PM EDT Office Visit [facility] [address] [place] [address] Raffy Johnston, DANIEL [address] [place] [address] documented as of this encounter Visit Diagnoses Not on filedocumented in this encounter
[2024-08-03 17:59] LABS: Appearance Urine Clear; Color Urine Yellow; Glucose Urine UA Negative (Negative); Leukocyte Esterase Urine Trace (Negative); Nitrite Urine Negative (Negative); UMIC TRIGGER UA YES; Urine Blood Negative (Negative); Urine Ketones Negative (Negative); Urine Protein Negative (Neg-Trace)
[2024-08-03 18:05] LABS: Bacteria Urine None Seen (None Seen); Hyaline Casts Urine 0-2 /LPF (0-2); RBC Urine 0-2 /HPF (0-2); Squamous Epithelial Cell Urine 0-2 /HPF (0-2); WBC Urine 0-5 /HPF (0-5)
[2024-08-03 18:13] LABS: Alanine Aminotransferase 20 U/L (0-31); Aspartate Amino Transferase 33 U/L (5-31); C Reactive Protein < 0.10 mg/dL (< or = 0.50); Estimated Glomerular Filt Rate > 60
[2024-08-03 18:14] LABS: Baso%MD 1.2 %; Eos%MD 8.6 %; Hematocrit 43.5 % (37.0-47.0); Hemoglobin 14.4 g/dl (12.0-16.0); IG%MD 0.2 %; Lymph%MD 21.6 %; Mean Corpuscular HGB Conc 33.1 g/dl (31.0-35.0); Mean Corpuscular Hemoglobin 30.1 pg (27.0-33.0); Mean Corpuscular Volume 90.8 fL (80.0-98.0); Mean Platelet Volume 12.6 fL (9.4-12.3); Mono%MD 7.6 %; Neut%MD 60.8 %; Platelet Count 181 X10*3/uL (160-400); Red Blood Count 4.79 X10*6/uL (4.20-5.50); Red Cell Distribution Width 13.6 % (11.0-16.0)
[2024-08-03 18:28] LABS: Creatinine Urine 54.65 mg/dL; Total Protein Urine Random < 7 mg/dL (<12)
[2024-08-03 18:37] LABS: Erythrocyte Sedimentation Rate 6 MM/HR (0-20)
[2024-08-03 19:00] LABS: Eosinophils Absolute Manual 0.5 X10*3/uL (0.0-0.4); Eosinophils Percent Manual 10 % (0-4); Lymphocytes Absolute Manual 0.8 X10*3/uL (1.2-4.9); Lymphocytes Percent Manual 16 % (20-40); Monocytes Absolute Manual 0.2 X10*3/uL (0.1-1.2); Monocytes Percent Manual 4 % (2-11); Neutrophils Percent Manual 70 % (45-73)
[2024-08-03 19:01] LABS: Platelet Estimate NORMAL (NORMAL); Platelet Morphology Comment NORMAL; RBC Morphology NORMAL
[2024-08-03 19:02] LABS: Neutrophils Absolute Manual 3.5 X10*3/uL (2.0-8.3)
[2024-08-04 21:19] LABS: Anti DNA DS Antibody 52 IU/mL; Anti-Centromere B Antibodies <1.0 NEG AI (<1.0 NEG); Antibody to SS-A Antigen <1.0 NEG AI (<1.0 NEG); Antibody to SS-B Antigen <1.0 NEG AI (<1.0 NEG); Scleroderma 70 Antibody <1.0 NEG AI (<1.0 NEG)
[2024-08-04 21:38] LABS: Complement C3 112 mg/dL (83-193)
== END 2024-08-03 08:18 | disposition home or self-care (01) ==
LOC: HO.HKASLDS 08:17
PROVIDERS: PCP Internal Medicine; Visit Provider Internal Medicine Rheumatology
DX: M32.19 Other organ or system involvement in systemic lupus erythematosus (principal); R21 Rash and other nonspecific skin eruption; R13.10 Dysphagia, unspecified; G89.29 Other chronic pain; M25.561 Pain in right knee; M17.11 Unilateral primary osteoarthritis, right knee; M19.041 Primary osteoarthritis, right hand; M19.042 Primary osteoarthritis, left hand; R74.01 Elevation of levels of liver transaminase levels
CPT/HCPCS: 36415; 81001; 82565; 82570; 84156; 84450; 84460; 85007; 85027; 85652; 86140; 86160; 86225; 86235; 99212

== ENCOUNTER 2024-08-21 15:56 | Outpatient (REF) | payer OTHER, SELFPAY ==
--- OUTSIDE RECORDS SUMMARY | 2024-08-21 17:32 | XMS_ITS | Data Portability ---
Author Organization [place] - [facility], Allergy Address [address] [address] Care Team Providers Care Public Housing Interviewer Name Role Phone PENELOPE CORNELIUS Primary Care [...] benefit from immunotherapy if approved by her treatment specialist in [place]. All questions answered. [email or web address] Not available 04/26/2024 [...] [facility], [address], [place], [place], [id number], 5 16:45:06 azelastine 137 mcg (0.1 %) nasal spray 2023 024 [facility], [address], [place], [place], [id number], 4 10:31:40 Patient TargetsNo targets recorded. Patient Instructions Encounter Date Encounter Id Patient Instructions Last Modified By Organization Details Last Modified Time 09/21/2023 [id number] Vasomotor rhinit is only slightly improved with [...] medication issues. Not available 09/21/2023 11:02:03 05/22/2024 [id number] Nursing Documentation for Allergy Testing: Ordering Provider Dr. Cifuentes Weight:lbs: kg: PFT Yes With Bronchodilator no approval needed to proceed with allergy testing? Yes Dr. Lomeli ok'd testing Pulmonary ClearanceHistory of Asthma:No Asthma Meds: Last used: Asthma exacerbated by: Chance that : N/A Fear of needles: No Regular medications reviewed in Computer: No Medication allergies: Reviewed Antihistamine use: No Medications used: Food Allergies: Any foods make your mouth feeling itchy: Yes If yes: apples History of severe reaction where had to go to ER? No If yes details: Type of heat in home: Forced Air Pets: No If yes: Smoker: Former If former smoker-how much / day for how long didnt want to say When quit 15 years ago years ago Smoking now-how much /day for how long Occupation/Social History: stays at home Symptoms having: Congestion If other: post nasal drip Frequency Year Round Spirometry Contraindications: Heart attack in the last 3 months: No Major surgery in last 3 months: No Detached retina(serious eye issues) in last 2 months: No Hospitilization in last month: No Proceed with PFT Yes approval needed: Yes Nursing Notes: Pt tolerated test well No Benadryl cream to test sites No Patient became syncopal-placed in supine position No Large reactions to MQT, reschedule IDT for a different date No Other: Dr. Lomeli denied getting allergy tested due to pft and peak flow, recommended pt to see special officer automat and talk to primary care doctor. Written by: Catherine Erwin [email or web address] Not available 05/22/2024 13:49:42 Reason for Referral None Reported. Results Created Date Observation Date Name Description Value Unit Range Abnormal Flag Note LastModifiedBy Organization Detail LastModifiedTime 11/03/19 24 07/27/2018 imagi ng/kin newell tic resul t No observ ation record [...] Recorded Time Bilateral temporoma ndibular joint pain 06046417619 830045 Active 2018 Arthralgi a of bilateral temporoma ndibular joint; Note: Date Diagnosed : 07/27/2018 1:25 PM (M26.623) Not Available [facility] 4 02:46:53 Headache 16568184 Active 2018 Headache, unspecifi ed; Note: Changed from R51 to R51.9 ( 1 3:43 PM) , Date Diagnosed : 04/08/2018 12:10 PM (R51) Not Available [facility] 4 02:46:52 Pain of right temporoma ndibular joint 32837327746 216619 Active 2016 Arthralgi a of right temporoma ndibular joint; Note: Date Diagnosed : 04/22/2016 1:59 PM (M26.621) Not Available [facility] 4 02:46:53 Sensorine ural hearing loss of bilateral ears 838702620 Active 2020 Sensorine ural hearing loss, bilateral ; Note: Date Diagnosed : 12:18 PM (H90.3) Not Available [facility] 4 02:46:50 Migraine 35156234 Active 2017 Other migraine, not intractab le, without status migrainos us; Note: Date Diagnosed : 03/25/2017 12:19 PM (G43.809) Not Available [facility] 4 02:46:55 Acute sinusitis 03878577 Active 2020 Other acute sinusitis ; Note: Date Diagnosed : 08/15/2020 1:41 PM (J01.80) Not Available [facility] 4 02:46:57 Gastroeso phageal reflux disease without esophagit is 762670225 Active 2017 Gastro-es ophageal reflux disease without esophagit is; Note: Date Diagnosed : 8 9:31 AM (K21.9) Not Available [facility] 4 02:46:51 Dizziness and giddiness 369416391 Active 2017 Dizziness and giddiness ; Note: Date Diagnosed : 03/25/2017 11:43 AM (R42) Not Available [facility] 4 02:46:55 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 Active 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; Note: Date Diagnosed : 03/25/2017 11:50 AM (J30.0) Not Available [facility] 4 02:46:50 Tinnitus of left ear 16145104720 06 Active 2017 Tinnitus, left ear; Note: Date Diagnosed : 03/25/2017 11:55 AM (H93.12) Not Available [facility] 4 02:46:57 Chronic rhinitis 06852091 Active 2013 Chronic pharyngit is and nasophary ngitis: Chronic rhinitis; CMS Risk: low risk CMS Treatment : new problem (to examiner) : no additiona l workup planned N ote: Date Diagnosed : 12/19/2013 12:00 PM (472.0) Not Available [facility] 4 02:46:56 Follow-up visit Active 2016 Encounter for follow-up examinati on after completed treatment for condition s other than malignant neoplasm; Note: Date Diagnosed : 7 4:29 PM (Z09) Not Available [facility] 4 02:46:56 Dysphasia 39542794 Active 2017 Dysphasia ; Note: Date Diagnosed : 8 9:31 AM (R47.02) Not Available [facility] 4 02:46:56 Posterior rhinorrhe a 26116823 Active 2016 Postnasal drip; Note: Date Diagnosed : 04/22/2016 1:54 PM (R09.82) Not Available [facility] 4 02:46:55 Acute pharyngit is 835622596 Active 2022 Sore throat (acute) NOS; Note: Date Diagnosed : 3 12:47 PM (J02.9) Not Available [facility] 4 02:46:56 Nasal congestio n 04848191 Active 2016 Nasal congestio n; Note: Date Diagnosed : 04/22/2016 1:54 PM (R09.81) Not Available [facility] 4 02:46:53 Allergic rhinitis 30071312 Active 2015 Other allergic rhinitis; Note: Changed from J30.9 to J30.89 ( 6 4:25 PM) , Date Diagnosed : 01/22/2016 3:54 PM (J30.9) Not Available [facility] 4 02:46:49 Nasal mucosa dry 80417156 Active 2023 QUETA MATTHEWS PA-C [address] [facility],[place] [address], [place], [address] , [facility] - [facility] 4 11:02:24 Anterior rhinorrhe a 170161688 Active 2024 ANGELIKA RODRÍGUEZ PA-C [address] [facility],[place] [address], [place], [address] , [place] [facility] 5 16:32:07 Atypical facial pain 66864723 Active 2024 ANGELIKA RODRÍGUEZ PA-C [address] [facility],[place] [address], [address] , [facility] - [facility] 5 16:43:52 Non-aller gic rhinitis 91183751183 1 Active 2024 ANGELIKA RODRÍGUEZ PA-C [address] [place] [address],[place] [address], [place], [address] , [facility] - [facility] 5 16:44:24 Seasonal allergic rhinitis 226732322 Active 2024 ANGELIKA RODRÍGUEZ PA-C [address] [place] [address],[place] [address], [place], [address] , [facility] - [facility] 5 16:44:24 Chronic obstructi ve pulmonary disease 59133266 Active 2024 CARLOS LOMELI MD [address] [place] [address],[place] [address], [facility] [place], [address] , [facility] - [facility] 5 14:10:02 Problem Notes None recorded. Procedures Surgical History Date Name Laterality Status Provider Name and Address Organization Details Recorded Time Nasal Endoscopy completed ANGELIKA RODRÍGUEZ PA-C [address] [place] [address],[place] [address], [place], [address], [facility] 04/26/2024 16:39:27 Imaging Results None recorded. Procedure Notes None recorded. Medical Equipment None Reported. Allergies Allergen ID Allergen Name Allergen Category Reaction Reaction Severity Criticality Documentation Date Start Date Code Code System Note Provider Name and Address Organization Details Recorded Time 280328 prednisol one medicatio n hallucina tions Not available Not available 05/22/2024 8638 RxNorm ROSA GUZMÁN [address] [facility], [place], [address], [facility] - [facility] 5 13:01:00 Medications Name Sig Start Date Stop Date Status Note LastModified by Organization Details LastModified Time Prescript ion - Prior Authoriza tion Request active Script Copy/La or Auth^Scr ipt Copy/La or Auth_ [id number] Not Available Not Available Not Available melatonin tr 10 mg tbcr active Not Available Not Available Not Available melatonin prolonged release 10 mg tbcr active Not Available Not Available Not Available gabapenti n 600 mg tablet active Not Available Not Available Not Available doxycycli ne hyclate 100 mg capsule by mouth 08/15 completed Medicati on ID: [id number] D uration Value: 10 Prescri bed By [...] mg tablet 05/22 completed Medicati on ID: [id number] B rand Name: phenazop yridine Send Method: [...] mg tablet 12/30 completed Medicati on ID: [id number] D uration Value: 8 Brand Name: ondanset antony HCl Send Method: E-Prescr ibed Sub s Allowed: subs OK Medic ationGen ericName : ondanset antony HCl Not Available Not Available Not Available prednison e 20 mg tablet 2 tablet by mouth 12/30 completed Medicati on ID: [id number] D uration Value: 5 Prescri bed By [...] mg tablet 12/30 completed Medicati on ID: [id number] D uration Value: 2 Brand Name: butalbit [...] mg tablet 12/30 completed Medicati on ID: [id number] D uration Value: 30 Brand Name: carbamaz [...] tablet 07/08 completed Medicati on ID: [id number] [place] son: () Brand Name: lisinopr il Send [...] tablet 07/08 completed Medicati on ID: [id number] [place] son: () Brand Name: zolpidem Send Method: [...] topical cream 12/30 completed Medicati on ID: [id number] D uration Value: 23 Brand Name: doxepin [...] mg tablet 03/23 completed Medicati on ID: [id number] D uration Value: 1 Brand Name: diazepam [...] extended release 03/23 completed Medicati on ID: [id number] D uration Value: 30 Brand Name: bupropio n HCl Send Method: E-Prescr ibed Sub s Allowed: subs [place] Speci al Instruct ion: TAKE 1 TABLET EVERY MORNING Medicati onGeneri cName: bupropio n HCl Not Available Not Available Not Available escitalop qasim 5 mg tablet 07/08 completed Medicati on ID: [id number] D uration Value: 30 Reason: () Brand [...] 2[address] [place] son: () Brand Name: omeprazo le abronesiu m Send Method: E-Prescr ibed Sub s [...] Details Last Updated DateTime 2024 157.48 cm 07277.93 g Lorenza Villarreal [facility] 2024 10:20:24 Date Recorded Body height Body mass index (BMI) Body weight Provider Name and Address Organization Details Last Updated DateTime 04/26/2024 157.48 cm 25.6 kg/m2 75168.93 g Magy Hassan [facility] 04/26/2024 16:06:43 Date Recorded Body height Oxygen saturation Oxygen saturation in Arterial blood by Pulse oximetry Body mass index (BMI) Body weight Heart rate Systolic blood pressure Diastolic blood pressure Provider Name and Address Organization Details Last Updated DateTime 157.48 cm 98 % 98 % 25.6 kg/m2 93235.9 3 g 71 /min 122 mm[Hg] 65 mm[Hg] CATHERINE ERWIN[address], [address] [place] [address] [facility] 13:45:21 Date Recorded Body height Body mass index (BMI) Body weight Provider Name and Address Organization Details Last Updated DateTime 09/21/2023 157.48 cm 25.6 kg/m2 35900.93 g Lorenza Villarreal [facility] 09/21/2023 10:22:52 Social History None recorded. Functional Status None recorded. Mental Status None recorded. Family History Nothing Reported. Medical History Condition Response Allergies/Hayfever Y Heart Problems N Anxiety Y Tonsil Infections N Emphysema N Migraines N Thyroid Problems N Glaucoma Y Depression Y COPD N Developmental Delay N Nasal or Sinus Problems Y Anemia N Immune System Disorder N Anesthesia Complications N Heart Attack ([place]) Y Other Skin Condition Y Diabetes N [...] Note [id number] QUETA MATTHEWS PA-C [facility] [address] [place] [address] 09/21/2023 10:18:14 09/21/2023 10:37:56 Vasomotor rhinitis 6781194 J30.0 Nasal mucosa dry 4326717 2 J34.89 [id number] QUETA MATTHEWS PA-C [facility] [address] [address] 2024 10:14:30 2024 10:41:37 Acute sinusitis 83838158 J01.90 Nasal congestion 2465691 0 R09.81 Nasal mucosa dry 5198235 2 J34.89 Vasomotor rhinitis 37668 03 J30.0 Posterior rhinorrhea 758 48164 R09.82 [id number] ANGELIKA RODRÍGUEZ PA-C [facility] [address] [address] 04/26/2024 16:01:00 04/26/2024 16:33:24 Posterior rhinorrhea 33395914 R09.82 Anterior rhinorrhea 2772 07008 J34.89 Allergic rhinitis 748457 04 J30.9 Headache 20269502 R51.9 [id number] ROSA GUZMÁN [facility] 100 [facility] [address] [address] 05/22/2024 12:32:38 05/22/2024 13:55:12 Allergic rhinitis 84948191 J30.9 Health Concerns Section Related Observation LastModified by Organization Detai ls LastModified Time None Recorded Concern Status LastModified by Organization Details LastModified Time None Recorded Advance Directives Directive None Recorded Payers Insurance Date Sequence Insurance Name Policy Number Policy Kuo Covered Member ID Kuo Member ID Guarantor Name 05/23/2024 1 [facility] (MEDICARE REPLACEMENT/ ADVANTAGE - HMO) [facility] [place] Jessa Mionr [id number] Jessa Minor 05/23/2024 2 [place] [facility] Jessa Minor [id number] Jessa Minor Notes Date Note Type Note [...] distribution, and hyposmia. MARLA MOYER MD [address] [facility],[place] [address], [place], [address], [facility] [...] stopped her fluticasone. TY SMITH MD [address] [facility],[place] [address], [place], [address], [facility] [...] has lupus and is closely followed by [place] [facility]. TY SMITH MD [address] [place] [address], [place], [address], [place] - [facility] 04/26/2024 17:40:05 OBGyn Episode No OBEpisode recorded.
== END 2024-08-21 15:57 | disposition home or self-care (01) ==
LOC: HO.MAMMO 15:56
PROVIDERS: PCP Internal Medicine; Visit Provider Internal Medicine
DX: Z12.31 Encounter for screening mammogram for malignant neoplasm of breast (principal)
CPT/HCPCS: 77063; 77067

== ENCOUNTER → 2024-08-21 16:00 | Outpatient (BNV) | payer OTHER, SELFPAY | PROVIDERS: PCP Internal Medicine; Visit Provider Internal Medicine | DX: Z12.31 Encounter for screening mammogram for malignant neoplasm of breast (principal) | CPT/HCPCS: 77063; 77067 ==

== ENCOUNTER 2024-08-22 13:54 | Outpatient (REF) | payer OTHER, SELFPAY ==
--- NOTE | 2024-08-22 13:59 | PFT_ITS ---
Flows: FEV1: 68 % of predicted at 1.50 L FVC: 74 % of predicted at 2.10 L FEV1/FVC: 71 % Bronchodilator response: Present in small to medium airways only Volumes: Total lung capacity: 86 % of predicted at 4.27 L Residual volume: 111 % of predicted at 2.17 L Slow vital capacity: 70 % of predicted at 2.10 L Expiratory reserve volume: 71 % of predicted at 0.51 L Diffusion capacity: Normal Impression: Moderate obstructive ventilatory defect with positive bronchodilator response in small to medium airways only. MTDD
[2024-08-22 14:51] VITALS: PULSE 94; O2SAT 99
[2024-08-22 15:50] LABS: MANUAL DIFF FLAG NO
[2024-08-22 16:36] LABS: Basophils Absolute Auto 0.1 X10*3/uL (0.0-0.2); Basophils Percent Auto 0.9 % (0-2); Eosinophils Absolute Auto 0.6 X10*3/uL (0.0-0.4); Eosinophils Percent Auto 10.8 % (0-4); Hematocrit 42.1 % (37.0-47.0); Hemoglobin 13.9 g/dl (12.0-16.0); Imm Gran Abs Auto 0.01 X10*3/uL (0.00-0.03); Imm Gran Pct Auto 0.2 % (0.0-0.4); Lymphocytes Percent Auto 18.6 % (20-40); Mean Corpuscular Volume 90.7 fL (80.0-98.0); Mean Platelet Volume 11.6 fL (9.4-12.3); Monocytes Absolute Auto 0.4 X10*3/uL (0.1-1.2); Monocytes Percent Auto 7.3 % (2-11); Neutrophils Absolute Auto 3.4 x10*3/uL (2.0-8.3); Neutrophils Percent Auto 62.2 % (45-73); Platelet Count 155 X10*3/uL (160-400); Red Blood Count 4.64 X10*6/uL (4.20-5.50); Red Cell Distribution Width 13.8 % (11.0-16.0); White Blood Count 5.5 X10*3/uL (4.8-10.8)
[2024-08-23 05:54] LABS: Immunoglobulin E 35 kU/L (<OR=114)
== END 2024-08-22 13:55 | disposition home or self-care (01) ==
LOC: HO.RESP 13:54
PROVIDERS: PCP Internal Medicine; Visit Provider Internal Medicine
DX: J98.4 Other disorders of lung (principal); J45.909 Unspecified asthma, uncomplicated; D72.10 Eosinophilia, unspecified
CPT/HCPCS: 36415; 82785; 85025; 94010; 94640; 94727; 94729; 99212

== ENCOUNTER 2024-08-22 14:53 | Outpatient (AMB) | payer OTHER, SELFPAY ==
--- NOTE | 2024-08-22 14:54 | MHC.OFFVIS ---
Vital Signs 08/22/24 14:55 Height 5 ft 4 in Weight 148 lb BMI 25.4 BP 140/60 H Blood Pressure Location Lt brachial Position Sitting Pulse 79 Pulse Source Pulse Oximeter Pulse Oximetry (%) 98 Oxygen Delivery Method Room Air Intake Visit Reasons: COPD/Same Day PFT Intake Note: pt is here for follow up of pft, states she is the same as provious visit. pt would like to start allergy injections. 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 Health Communications Required: No Allergies prednisone Adverse Reaction (Intermediate, Verified 08/22/24 15:19) Anxiety Medication List - Last Reconciled 08/22/24 by Price Elmore MD albuterol sulfate 90 mcg/actuation 1 inh inhalation QID PRN 30 days ascorbate calcium (vitamin C) 500 mg PO DAILY bupropion HCl 1 tab PO DAILY calcium carbonate-vitamin D3 600 mg-12.5 mcg (500 unit) (Calcium with Vit D3) caps PO diclofenac sodium 1% 2 grams topical BID PRN escitalopram oxalate 10 mg PO DAILY@1300 PRN gabapentin 1 tab PO DAILY geriatric mbdrderi-xzwo-whjy (Centravites 50 Plus tablet) 1 tab PO DAILY hydroxychloroquine 300 mg (1.5 x 200 mg) PO DAILY 90 days hyoscyamine sulfate 0.125 mg PO BID PRN leg brace (Knee Support Brace) As directed Hinged knee brace right Dx: osteoarthritis lorazepam 0.5 mg PO DAILY PRN melatonin 10 mg PO BEDTIME PRN tacrolimus 0.1% 1 applic topical Q OTHER DAY terazosin 1 mg PO BEDTIME 90 days [thumb spica wear nightly & as much as possible throughout the day] zolpidem 2.5 mg PO BEDTIME PRN Do you need a note to return to daycare/school/sports/work: No HPI HPI COPD/Same Day PFT: Details: This 69 years old female is here for follow-up after she had pulmonary function test. Her symptoms are mainly that of nasal congestion intermittent sneezing and postnasal drip, indicated of allergic rhinitis. She has only occasional bouts of cough and some wheezing, for which she uses albuterol only once in a while. She does get short of breath when she walks fast. Or climbs stairs She did undergo pulmonary function test today, the results will be documented below. In the meantime she has also seen allergy specialists, and they had discussed with her about the injections ( immunotherapy) The patient wants me to advise her whether she should go for the injections are not, [facility] Medical History (Updated 08/22/24 @ 15:30 by Price Elmore MD) Eosinophilia Asthma Allergic rhinitis Dyspnea on exertion Restrictive lung disease Venous insufficiency Right carotid bruit Diverticulitis Bipolar 1 disorder GERD (gastroesophageal reflux disease) History of cervical cancer Irritable bowel syndrome with constipation Weak urinary stream Surgical menopause Osteopenia Essential hypertension Dyslipidemia Anxiety Surgical History History of cardiac cath Hx of esophagogastroduodenoscopy Hx of colonoscopy History of partial hysterectomy Family History Father Throat cancer Mother No problems noted. Brother No problems noted. Sister No problems noted. Sister No problems noted. Sister No problems noted. Sister Hyperlipidemia HTN (hypertension) Depression Myocardial infarction Daughter No problems noted. Daughter No problems noted. Daughter No problems noted. Daughter No problems noted. Paternal Aunt Rheumatoid arthritis Other Mental health disorder Substance use disorder Social History Housing: Apartment Alcohol intake: current Alcohol intake frequency: does not drink Alcohol type: wine Patient Tobacco Use Status: Former Tobacco user e-Cigarette/Vaping Use: Never Used Advance Directives Date on File: 01/15/23 service: No Current occupational status: unemployed Cognitive needs: No Hearing needs: No Vision needs: No Review of Systems Const All systems reviewed & are unremarkable except as noted in HPI and below Eyes Reports no additional complaints ENT Reports nasal congestion (FREQUENT) and Reports nasal obstruction (PARTIAL.) Card Denies chest pain, Denies irregular heart rhythm and Denies leg edema Resp Reports as per HPI GI Reports abdominal pain and Reports other (HISTORY OF DIVERTICULITIS) Reports no additional complaints Musc Reports myalgias Skin/Breast Reports dry skin (MINOR RED SPOTS) Neuro Reports no additional complaints Psych Reports anxiety and Reports depression Endo Reports no additional complaints Albino/Lymph Reports no additional complaints Physical Exam Vital Signs: Last Vital Signs Pulse 79 08/22/24 14:55 BP 140/60 H 08/22/24 14:55 Pulse Ox 98 08/22/24 14:55 Oxygen Delivery Method Room Air 08/22/24 14:55 BMI result Body Mass Index 25.4 Const General: healthy appearing, comfortable, no acute distress, alert and awake Orientation/consciousness: patient oriented x3 HEENT Head: Yes normal to inspection General nose exam: No nasal polyps present, No nasal discharge present and Abnormal mucous membranes and turbinates present (MODERATE HYPERTROPHY OF THE NASAL TURBINATES) Face and sinus: Yes sinuses nontender Mouth: oropharynx normal Throat: Yes posterior oropharynx normal Eyes General: appearance normal, both eyes and all related structures Neck Neck: Yes normal visual inspection, Yes no lymphadenopathy, Yes trachea midline and Yes no JVD Thyroid: Thyroid normal Chest Chest palpation & inspection: normal inspection of the chest, normal palpation of entire chest wall and no tenderness Resp Other: PERCUSSION NOTE IS RESONANT. BREATH SOUNDS ARE MODERATELY DIMINISHED WITH SLIGHT. PROLONGATION OF THE EXPIRATORY PHASE NO WHEEZES RHONCHI OR CREPITATIONS ARE HEARD. Cardio Palpation: normal PMI Rate: regular rate Rhythm: regular rhythm Heart sounds: no gallops and no murmurs GI Palpation (GI): Soft to palpation, nontender, No hepatosplenomegaly present and no masses Auscultation: normal bowel sounds Back/Spine/Pelvis Thoracic/Lumbar Spine: thoracic and lumbar spine normal to inspection Skin General skin exam: no rashes or lesions noted Neuro General: patient oriented x3 and no focal motor deficits Cranial nerves: Yes CN's II-XII intact bilaterally Extrem General: Yes normal to inspection, Yes no clubbing, cyanosis or edema and Yes no calf tenderness Psych Appearance: grossly normal and well kempt Speech and movement: Normal speech and movement present Affect: Anxious affect present Results Reviewed Results Reviewed: Pulmonary function test to performed today, shows the slight decrease in FVC and FEV1. FEV1/FVC ratio is 69 consistent with mild obstructive disorder. FEF 25-75 is 40% and 27% improvement after bronchodilator therapy. Lung volumes and diffusion capacity are normal. These results are indicated of mild restrictive and mild obstructive disorder with positive response to bronchodilator therapy. Her previous blood test has shown eosinophil count of 7.4% c/w allergic rhinitis/bronchial asthma Assessment & Plan Assessment & Plan (1) Restrictive lung disease: Comment: CHEST. X-RAY IS NORMAL Pulmonary function test, shows mild restrictive and mild obstructive airway disorder. Code(s): J98.4 - Other disorders of lung Category: Medical Plan: Explained the results to the patient, she is not obese and the restrictive pattern may be just due to poor efforts. (2) Asthma: Comment: Pulmonary function test is consistent with mild small airway obstructive disorder with positive response to bronchodilator therapy This finding is suggestive of mild intermittent bronchial asthma probably due to allergic etiology . It goes along with the eosinophilia as was noticed in previous CBC results. Code(s): J45.909 - Unspecified asthma, uncomplicated Category: Medical Plan: She is advised to use albuterol HFA 1 or 2 puffs Q 6 hours only p.r.n.. I will repeat CBC with diff and IgE level if one both are elevated , then she will be candidate for biologic treatment. (3) Allergic rhinitis: Comment: SHE HAS CHRONIC ALLERGIC TYPE RHINITIS, IT MAY BE DUE TO MULTIPLE ENVIRONMENTAL ALLERGIES. I NOTICE THAT SHE HAS CHRONIC EOSINOPHILIA WHICH POINTS TO ALLERGIC COMPONENT . Code(s): J30.9 - Allergic rhinitis, unspecified Category: Medical Plan: Repeating CBC and IgE level today. She wanted me to advise if she should undergo skin testing and allergy shots by the allergy specialists group. I told her to discuss with them about eosinophilia and possibility of biologic treatment (4) Eosinophilia: Comment: On 04/07/2024, CBC report shows eosinophil count of 7.4% Code(s): D72.10 - Eosinophilia, unspecified Category: Medical Plan: Repeating the CBC with diff again today Orders: Orders Complete Blood Count Auto Diff Today J30.9 - Allergic rhinitis, unspecified, J45.909 - Unspecified asthma, uncomplicated Immunoglobulin E Today J30.9 - Allergic rhinitis, unspecified, J45.909 - Unspecified asthma, uncomplicated Coding Level of Care Code Est Pt Level 3 (93270) Diagnoses Restrictive lung disease J98.4 Asthma J45.909 Allergic rhinitis J30.9 Eosinophilia D72.10
[2024-08-22 14:55] VITALS: BP 140/60; PULSE 79; O2SAT 98; BMI 25.4
== END 2024-08-22 16:27 | disposition home or self-care (01) ==
LOC: HO.HPS 14:54
PROVIDERS: PCP Internal Medicine; Visit Provider Internal Medicine
DX: J98.4 Other disorders of lung (principal); J45.909 Unspecified asthma, uncomplicated; J30.9 Allergic rhinitis, unspecified; D72.10 Eosinophilia, unspecified
CPT/HCPCS: 99213

== ENCOUNTER 2024-09-13 13:07 | Outpatient (AMB) | payer OTHER, SELFPAY ==
--- NOTE | 2024-09-13 13:31 | MHC.PC.OV ---
Vital Signs 09/13/24 13:47 Height 5 ft 4 in Weight 143 lb BMI 24.5 BP 142/82 H Blood Pressure Location Rt brachial Position Sitting Respiration 16 Pulse 65 Pulse Source Pulse Oximeter Temp 97.8 F Temp Source Oral Pulse Oximetry (%) 98 Oxygen Delivery Method Room Air Intake Visit Reasons: Annual PE - see comments Intake Note: Pt is here today for her PE: last mammogram 08/21/24, bone denisty scan 06/15/23, colonoscopy 02/03/19 Allergies prednisone Adverse Reaction (Intermediate, Verified 09/13/24 13:56) Anxiety Medication List - Last Reconciled 09/13/24 by Osiris Soni MD albuterol sulfate 90 mcg/actuation 1 inh inhalation QID PRN 30 days bupropion HCl 1 tab PO DAILY diclofenac sodium 1% 2 grams topical BID PRN dicyclomine 20 mg PO QID escitalopram oxalate 10 mg PO DAILY@1300 PRN gabapentin 1 tab PO DAILY geriatric abhjibzs-amyr-byca (Centravites 50 Plus tablet) 1 tab PO DAILY hydroxychloroquine 300 mg (1.5 x 200 mg) PO DAILY 90 days hyoscyamine sulfate 0.125 mg PO BID PRN leg brace (Knee Support Brace) As directed Hinged knee brace right Dx: osteoarthritis lorazepam 0.5 mg PO DAILY PRN melatonin 10 mg PO BEDTIME PRN nitrofurantoin macrocrystal 100 mg PO BID ondansetron 8 mg PO TID tacrolimus 0.1% 1 applic topical Q OTHER DAY terazosin 1 mg PO BEDTIME 90 days [thumb spica wear nightly & as much as possible throughout the day] zolpidem 2.5 mg PO BEDTIME PRN Tobacco use date assessed: 09/13/24 Fall risk assessment: No Falls in past year Last assessed Fall Risk: 09/13/24 Dental Screening Dental Screen Date: 09/13/24 Did you have a dental visit in the last 12 months?: Yes Did you have a dental problem in the last 6 months where you did not have access to dental care?: Yes Was dental information given to patient?: Patient has dentist HPI Annual PE - see comments HPI Details 69 year-old lady with history chronic GERD, dyslipidemia, anxiety disorder, hypertension, IBS with constipation, GERD, obstructive sleep apnea, osteoarthritis, here today for physical exam. She is up-to-date with her breast cancer screening, with last mammogram done 08/21/2024 with findings within normal limits. Had a bone density scan done 06/15/2023 which showed osteopenia in multiple sites. Last colonoscopy was done in 12/2023, with normal findings , repeat again in 5 years due to positive family history of colon cancer. Has been having intermittent episodes of urinary frequency and urgency but no dysuria, no abdominal or back pain reported. [facility] Medical History Eosinophilia Asthma Allergic rhinitis Dyspnea on exertion Restrictive lung disease Venous insufficiency Right carotid bruit Diverticulitis Bipolar 1 disorder GERD (gastroesophageal reflux disease) History of cervical cancer Irritable bowel syndrome with constipation Weak urinary stream Surgical menopause Osteopenia Essential hypertension Dyslipidemia Anxiety Surgical History History of cardiac cath Hx of esophagogastroduodenoscopy Hx of colonoscopy History of partial hysterectomy Family History Father Throat cancer Mother No problems noted. Brother No problems noted. Sister No problems noted. Sister No problems noted. Sister No problems noted. Sister Hyperlipidemia HTN (hypertension) Depression Myocardial infarction Daughter No problems noted. Daughter No problems noted. Daughter No problems noted. Daughter No problems noted. Paternal Aunt Rheumatoid arthritis Other Mental health disorder Substance use disorder Social History Housing: Apartment Alcohol intake: current Alcohol intake frequency: does not drink Alcohol type: wine Patient Tobacco Use Status: Former Tobacco user e-Cigarette/Vaping Use: Never Used Advance Directives Date on File: 01/15/23 service: No Current occupational status: unemployed Cognitive needs: No Hearing needs: No Vision needs: No Questionnaire PHQ-9 Over the last 2 weeks, how often have you been bothered by any of the following problems? 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 Howie Leavitt, Ellie Kirkpatrick, Ponce Magdaleno and colleagues, with an educational nathanael from Personally. Thrive Questionnaire Date Thrive assessed: 05/15/24 I am a: Patient What is your living situation today?: I have a steady place to live Within the past 12 months, did the food you bought not last and you didn't have the money to get more?: Never true Within the past 12 months, did you worry whether your food would run out before you got money to buy more?: Never true Do you have trouble paying for medicines?: No Do you have trouble getting transportation to medical appointments?: Yes Do you have trouble paying your heating and electricity bill?: No Do you have trouble taking care of your child, family member or friend?: No Do you have trouble with day-to-day activities such as bathing, preparing meals, shopping, managing finances, etc.?: No Are you currently unemployed and looking for a job?: No Are you interested in more education?: No Please select the resources that you would like help with: None Currently or been in a relationship where the following occur: No concerns reported THRIVE Score: 1 GEETA-7 AMB Questionnaire GEETA-7 Date GEETA - 7 assessed: 08/17/23 Source: Developed by Drs. Howie Leavitt, Ellie Kirkpatrick, Ponce Magdaleno and colleagues, with an educational nathanael from Personally. Review of Systems Const All systems reviewed & are unremarkable except as noted in HPI and below Eyes Denies change in vision ENT Reports no additional complaints and Reports nasal congestion (FREQUENT) Card Denies chest pain, Denies irregular heart rhythm and Denies leg edema Resp Reports no additional complaints GI Reports no additional complaints Reports as per HPI Musc Reports myalgias and Reports stiffness Skin/Breast Reports dry skin (MINOR RED SPOTS) Neuro Reports no additional complaints Psych Reports as per HPI Endo Reports no additional complaints Albino/Lymph Reports no additional complaints Aller/Immun Reports seasonal rhinorrhea Physical exam (Primary Care) Vital Signs: Last Vital Signs Temp 97.8 F 09/13/24 13:47 Pulse 65 09/13/24 13:47 Resp 16 09/13/24 13:47 BP 142/82 H 09/13/24 13:47 Pulse Ox 98 09/13/24 13:47 Oxygen Delivery Method Room Air 09/13/24 13:47 BMI result Body Mass Index 24.5 Tobacco/Smoking Status: Tobacco use Status Tobacco use date assessed 09/13/24 09/13/24 13:34 Patient Tobacco Use Status Former Tobacco user 09/13/24 13:34 e-Cigarette/Vaping Use Never Used 09/13/24 13:34 Depression Screening Interpretation: Positive (Followed by psychiatry, currently on escitalopram and lorazepam) Depression Screening Follow-up: Existing condition, In treatment and 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 Mental Health 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 F/U Thrive Assessment: Date of Thrive Assessment Date Thrive assessed 05/15/24 09/13/24 13:34 Currently or been in a relationship where the following occur: No concerns reported Const Other: Alert oriented x3, no acute distress noted ambulatory normal gait Orientation/consciousness: patient oriented x3 HENMT Ears: external ears normal and EAC's normal Face and sinus: Yes sinus tenderness (Left maxillary) Mouth: oropharynx normal and moist mucous membranes Neck Neck: Yes full ROM, Yes no lymphadenopathy and Yes supple Resp Auscultation: clear to auscultation bilaterally Cardio Other: S1-S2 present regular rate and rhythm GI Other: Hyperactive bowel sounds Palpation (GI): Soft to palpation, nontender, no guarding and no masses General: Yes no CVA tenderness Back/Spine/Pelvis Back: no CVA tenderness Skin General skin exam: no rashes or lesions noted Neuro General: patient oriented x3, gait normal, tone normal, moves all extremities, Normal light touch and pain sensation and no focal motor deficits Extrem General: Yes full ROM, Yes no clubbing, cyanosis or edema, Yes no pedal edema and Yes normal gait Psych Appearance: grossly normal and well kempt Mental Status: mental status grossly normal Speech and movement: Normal speech and movement present Affect: normal affect Results AMB Urinalysis, Automated UA Leukoctes 0 Alexander/uL Last Edit by ROSA Padilla on 09/13/24 14:05 UA Nitrite Negative Last Edit by ROSA Padilla on 09/13/24 14:05 UA Urobilinogen 0.2 mg/dL Last Edit by ROSA Padilla on 09/13/24 14:05 UA Protein 0 mg/dL Last Edit by ROSA Padilla on 09/13/24 14:05 UA pH 6.0 Last Edit by ROSA Padilla on 09/13/24 14:05 UA Blood 0 Sivakumar/uL Last Edit by ROSA Padilla on 09/13/24 14:05 UA Specific [place] 1.010 Last Edit by ROSA Padilla on 09/13/24 14:05 UA Ketone Negative Last Edit by ROSA Padilla on 09/13/24 14:05 UA Bilirubin 0 mg/dL Last Edit by ROSA Padilla on 09/13/24 14:05 UA Glucose 0 mg/dL Last Edit by ROSA Padilla on 09/13/24 14:05 Results Reviewed Results Reviewed: Laboratory Last Values Urine pH (Auto) 6.0 09/13/24 14:04 Specific [place] (Auto) 1.010 09/13/24 14:04 Urine Protein (Auto) 0 mg/dL 09/13/24 14:04 Glucose (UA)(Auto) 0 mg/dL 09/13/24 14:04 Urine Ketones (Auto) Negative 09/13/24 14:04 Urine Blood (Auto) 0 Sivakumar/uL 09/13/24 14:04 Urine Nitrite (Auto) Negative 09/13/24 14:04 Urine Bilirubin (Auto) 0 mg/dL 09/13/24 14:04 Urine Urobilinogen (Auto) 0.2 mg/dL 09/13/24 14:04 Leukocyte Esterase (Auto) 0 Alexander/uL 09/13/24 14:04 Coding Level of Care Code Est Pt Prev Care >65y(19170) Diagnoses Essential hypertension I10 Allergic rhinitis J30.9 Osteopenia of multiple sites M85.89 Osteopenia location: multiple sites Dyslipidemia E78.5 Systemic lupus erythematosus with other organ involvement, unspecified SLE type M32.19 Systemic lupus erythematosus organ involvement: other Systemic lupus erythematosus type: unspecified Primary osteoarthritis of right knee M17.11 Laterality: right Osteoarthritis type: primary GERD (gastroesophageal reflux disease) K21.9 Urinary frequency R35.0 Annual visit for general adult medical examination with abnormal findings Z00.01 Assessment & Plan Assessment & Plan (1) Essential hypertension: Code(s): I10 - Essential (primary) hypertension Category: Medical Plan: Blood pressure within acceptable limits. Reinforced importance of following a low sodium diet, getting regular exercise, and lowering stress levels. (2) Allergic rhinitis: Comment: SHE HAS CHRONIC ALLERGIC TYPE RHINITIS, IT MAY BE DUE TO MULTIPLE ENVIRONMENTAL ALLERGIES. I NOTICE THAT SHE HAS CHRONIC EOSINOPHILIA WHICH POINTS TO ALLERGIC COMPONENT . Code(s): J30.9 - Allergic rhinitis, unspecified Category: Medical Plan: Takes adnv-wfy-sqzjadt cetirizine as needed (3) Osteopenia: Code(s): M85.80 - Other specified disorders of bone density and structure, unspecified site Category: Medical Qualifiers: Osteopenia location: multiple sites Qualified Code(s): M85.89 - Other specified disorders of bone density and structure, multiple sites Plan: Reinforced importance of doing regular weight-bearing exercise, taking adequate calcium from dietary sources and taking vitamin-D 3 at least 2000 units daily (4) Dyslipidemia: Code(s): E78.5 - Hyperlipidemia, unspecified Category: Medical Plan: Stressed importance of following a low-cholesterol diet and staying active (5) SLE (systemic lupus erythematosus): Comment: - Code(s): M32.9 - Systemic lupus erythematosus, unspecified Category: Medical Qualifiers: Systemic lupus erythematosus organ involvement: other Systemic lupus erythematosus type: unspecified Qualified Code(s): M32.19 - Other organ or system involvement in systemic lupus erythematosus Plan: Rheumatology currently on hydroxychloroquine 300 mg once a day (6) Knee osteoarthritis: Comment: Constant pain Code(s): M17.9 - Osteoarthritis of knee, unspecified Category: Medical Qualifiers: Laterality: right Osteoarthritis type: primary Qualified Code(s): M17.11 - Unilateral primary osteoarthritis, right knee Plan: Currently on and wears a leg brace for added support (7) GERD (gastroesophageal reflux disease): Code(s): K21.9 - Gastro-esophageal reflux disease without esophagitis Category: Medical Plan: Currently being followed by GI clinic, hyoscyamine 0 point 125 mg twice a day for epigastric discomfort (8) Urinary frequency: Code(s): R35.0 - Frequency of micturition Plan: Empirically started on nitrofurantoin 100 mg capsule taken twice a day by mouth, and trial of estradiol 0.01% cream apply 3 times a week initially for the 1st month. Urinalysis did not show any evidence of UTI (9) Annual visit for general adult medical examination with abnormal findings: Code(s): Z00.01 - Encounter for general adult medical examination with abnormal findings Plan: Will check appropriate labs. Recommended dental visit every 6 months and regular eye exams, at least every 2 years. Take adequate calcium in diet and vitamin-D 3 at 2000 IU per cap once a day, in addition to weight-bearing exercises to help maintain good muscle tone and weight control. She is up-to-date with her breast cancer screening, with last mammogram done 08/21/2024 with findings within normal limits. Had a bone density scan done 06/15/2023 which showed osteopenia in multiple sites. Last colonoscopy was done in 12/2023, with normal findings , repeat again in 5 years due to positive family history of colon cancer. Orders: Orders AMB Urinalysis Automated 09/13/24 Z13.9 - Encounter for screening, unspecified Medications: New nitrofurantoin macrocrystal 100 mg PO BID 10 caps 0RF 5 days Refilled estradiol 0.01%(0.1mg/gram) vaginally 3 times a week; pea sized amount to urethra 3 times a week 42.5 grams 0RF 30 days R32 - Unspecified urinary incontinence
--- OUTSIDE RECORDS SUMMARY | 2024-09-13 13:43 | XMS_ITS | Clinical Summary ---
Author Organization [facility] it Address [address] [place] [address] Care Team Providers Care Oim Architect Name Role Phone Osiris Soni MD Primary [...] 2004 Zoster Vaccines (1 of 2) 2004 COVID-19 Vaccine ( - 2023-2 5 season) [...] age to complete this topic Care Teams Oim Architect Relationship Specialty Start Date End Date Osiris Soni MD [address] [place] [facility] [id number] PCP - General Internal Medicine 06/06/11
--- OUTSIDE RECORDS SUMMARY | 2024-09-13 13:43 | XMS_ITS | Data Portability ---
Author Organization [place] - [facility], Allergy Address [address] [address] Care Team Providers Care Controls Engineer Name Role Phone PENELOPE CORNELIUS Primary Care Provider [phone] Assessment Encounter Date Assessment Date Assessment LastModified [...] benefit from immunotherapy if approved by her meat clerk in [place]. All questions answered. [email or web address] Not available 04/26/2024 16:45:50 Plan of Treatment Reminders Order Date Submit Date Provider Last Modified By Organization Details Last Modified Time Details Appointments Allergy Test 2024 02:30P M [facility] Not available Not available Not available Establish ed 15 2024 02:15P M ANGELIKA RODRÍGUEZ PA-C Not available Not [...] spray 2024 025 [facility], [address] [place], [id number], 04/26/2024 16:45:06 azelastin e 137 mcg (0.1 %) nasal spray 2023 024 [facility], [address], [place], [id number], 09/21/2023 10:31:40 Patient TargetsNo targets recorded. Patient Instructions Encounter Date Encounter Id Patient Instructions Last Modified By Organization Details Last Modified Time 09/21/2023 [id number] Vasomotor rhinit is only slightly improved with [...] medication issues. Not available 09/21/2023 11:02:03 05/22/2024 [id number] Nursing Documentation for Allergy Testing: Ordering Provider [...] last month: No Proceed with PFT Yes DrWendy approval needed: Yes Nursing Notes: Pt tolerated test well No Benadryl cream to test sites No Patient became syncopal-placed in supine position No Large reactions to MQT, reschedule IDT for a different date No Other: Dr. Lomeli denied getting allergy tested due to pft and peak flow, recommended pt to see in house counsel and talk to primary care doctor. Written by: Catherine Erwin [email or web address] Not available 05/22/2024 13:49:42 Reason for Referral [...] Recorded Time Bilateral temporoma ndibular joint pain [id number] 828034 Active 2018 Arthralgi a of bilateral temporoma ndibular joint; Note: Date Diagnosed : 07/27/2018 1:25 PM (M26.623) Not Available [facility] 4 02:46:53 Headache 08121415 Active 2018 Headache, unspecifi ed; Note: Changed from R51 to R51.9 ( 1 3:43 PM) , Date Diagnosed : 04/08/2018 12:10 PM (R51) Not Available [facility] 4 02:46:52 Pain of right temporoma ndibular joint 72337713478 742986 Active 2016 Arthralgi a of right temporoma ndibular joint; Note: Date Diagnosed : 04/22/2016 1:59 PM (M26.621) Not Available [facility] 4 02:46:53 Sensorine ural hearing loss of bilateral ears 913270060 Active 2020 Sensorine ural hearing loss, bilateral ; Note: Date Diagnosed : 1 12:18 PM (H90.3) Not Available [facility] 4 02:46:50 Migraine 65108699 Active 2017 Other migraine, not intractab le, without status migrainos us; Note: Date Diagnosed : 03/25/2017 12:19 PM (G43.809) Not Available [facility] 4 02:46:55 Acute sinusitis 48452226 Active 2020 Other acute sinusitis ; Note: Date Diagnosed : 08/15/2020 1:41 PM (J01.80) Not Available [facility] 4 02:46:57 Gastroeso phageal reflux disease without esophagit is 097451335 Active 2017 Gastro-es ophageal reflux disease without esophagit is; Note: Date Diagnosed : 8 9:31 AM (K21.9) Not Available [facility] 4 02:46:51 Dizziness and giddiness 758356210 Active 2017 Dizziness and giddiness ; Note: Date Diagnosed : 03/25/2017 11:43 AM (R42) Not Available [facility] 4 02:46:55 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; Note: Date Diagnosed : 03/25/2017 11:50 AM (J30.0) Not Available [facility] 4 02:46:50 Tinnitus of left ear 76556845086 06 Active 2017 Tinnitus, left ear; Note: Date Diagnosed : 03/25/2017 11:55 AM (H93.12) Not Available [facility] 4 02:46:57 Chronic rhinitis 09218625 Active 2013 Chronic pharyngit is and nasophary ngitis: Chronic rhinitis; CMS Risk: low risk CMS Treatment : new problem (to examiner) : no additiona l workup planned N ote: Date Diagnosed : 12/19/2013 12:00 PM (472.0) Not Available [facility] 4 02:46:56 Follow-up visit Active 2016 Encounter for follow-up examinati on after completed treatment for condition s other than malignant neoplasm; Note: Date Diagnosed : 7 4:29 PM (Z09) Not Available [facility] 4 02:46:56 Dysphasia 44773817 Active 2017 Dysphasia ; Note: Date Diagnosed : 8 9:31 AM (R47.02) Not Available [facility] 4 02:46:56 Posterior rhinorrhe a 76900050 Active 2016 Postnasal drip; Note: Date Diagnosed : 04/22/2016 1:54 PM (R09.82) Not Available [facility] 4 02:46:55 Acute pharyngit is 779594387 Active 2022 Sore throat (acute) NOS; Note: Date Diagnosed : 3 12:47 PM (J02.9) Not Available [facility] 4 02:46:56 Nasal congestio n 10211411 Active 2016 Nasal congestio n; Note: Date Diagnosed : 04/22/2016 1:54 PM (R09.81) Not Available [facility] 4 02:46:53 Allergic rhinitis 58324168 Active 2015 Other allergic rhinitis; Note: Changed from J30.9 to J30.89 ( 6 4:25 PM) , Date Diagnosed : 01/22/2016 3:54 PM (J30.9) Not Available [facility] 4 02:46:49 Nasal mucosa dry 07738041 Active 2023 QUETA MATTHEWS PA-C [facility] [place],[address], [place], [address] , [place] - [facility] 4 11:02:24 Anterior rhinorrhe a 639545148 Active 2024 ANGELIKA RODRÍGUEZ PA-C 100 [facility] [place],[address], [place], [address] , [facility] 16:32:07 Atypical facial pain 92453009 Active 2024 ANGELIKA RODRÍGUEZ PA-C [address] [place] [address],[place] [address], [place], [address] , [facility] - [facility] 16:43:52 Non-aller gic rhinitis 19224912401 1 Active 2024 ANGELIKA RODRÍGUEZ PA-C [address] [place] [address],[place] [address], [place], [address] , [facility] - [facility] 16:44:24 Seasonal allergic rhinitis 637490762 Active 2024 ANGELIKA RODRÍGUEZ PA-C [address] [place] [address],[place] [address], [place], [address] , [facility] - [facility] 16:44:24 Chronic obstructi ve pulmonary disease 07361614 Active 2024 CARLOS LOMELI MD 100 [facility],[place] [address], [place], [address] , [facility] - [facility] 14:10:02 Problem Notes None recorded. Procedures Surgical History Date Name Laterality Status Provider Name and Address Organization Details Recorded Time Nasal Endoscopy completed ANGELIKA RODRÍGUEZ PA-C [address] [place] [address],[address], [address], [facility] - [facility] 04/26/2024 16:39:27 Imaging Results None recorded. Procedure Notes None recorded. Medical Equipment None Reported. Allergies Allergen ID Allergen Name Allergen Category Reaction Reaction Severity Criticality Documentation Date Start Date Code Code System Note Provider Name and Address Organization Details Recorded Time [id number] prednisol one medicatio n hallucina tions Not available Not available 05/22/2024 8638 RxNorm ROSA GUZMÁN [facility] [place],[address], [place], [address], [facility] - [facility] 5 13:01:00 Medications Name Sig Start Date [...] by mouth 08/15 completed Medicati on ID: [id number] D uration Value: 10 Prescri bed By [...] mg tablet 05/22 completed Medicati on ID: [id number] B rand Name: phenazop yridine Send Method: [...] mg tablet 12/30 completed Medicati on ID: [id number] D uration Value: 8 Brand Name: main antony HCl Send Method: E-Prescr ibed Sub s Allowed: subs OK Medic ationGen ericName : ondanset antony HCl Not Available Not Available Not Available prednison e 20 mg tablet 2 tablet by mouth 12/30 completed Medicati on ID: [id number] D uration Value: 5 Prescri bed By [...] mg tablet 12/30 completed Medicati on ID: [id number] D uration Value: 2 Brand Name: butalbit [...] mg tablet 12/30 completed Medicati on ID: [id number] D uration Value: 30 Brand Name: carbamaz [...] mg capsule 01/05 completed Medicati on ID: [address] [place] son: () Brand Name: gabapent in [...] topical cream 12/30 completed Medicati on ID: [id number] D uration Value: 23 Brand Name: doxepin Send Method: E-Prescr ibed Sub s Allowed: subs OK Medic ationGen ericName : doxepin Not Available Not Available Not Available metronida zole 0.75 % topical gel 03/10 /2025 completed Not Available Not Available Not Available [...] mg tablet 03/23 completed Medicati on ID: [id number] D uration Value: 1 Brand Name: diazepam [...] extended release 03/23 completed Medicati on ID: [id number] D uration Value: 30 Brand Name: bupropio n HCl Send Method: E-Prescr ibed Sub s Allowed: subs OK Speci al Instruct ion: TAKE 1 TABLET EVERY MORNING Medicati onGeneri cName: bupropio n HCl Not Available Not Available Not Available escitalop qasim 5 mg tablet 07/08 completed Medicati on ID: [id number] D uration Value: 30 Reason: () Brand [...] release 07/08 completed Medicati on ID: [id number] [place] son: () Brand Name: omepralow pitts Send Method: E-Prescr ibed Sub s Allowed: subs OK Medic ationGen ericName : fox pitts Not Available Not Available Not Available Sodium Fluoride 5000 Plus 1.1 % dental cream APPLY DIRECTED TO TEETH THREE TIMES DAILY active Not Available Not Available No t Available Vitals Date Recorded Body height Body weight Provider Name and Address Organization Details Last Updated DateTime 2024 157.48 cm 55832.93 g Lorenza Villarreal [place] - [facility] 2024 10:20:24 Date Recorded Body height Body mass index (BMI) Body weight Provider Name and Address Organization Details Last Updated DateTime 04/26/2024 157.48 cm 25.6 kg/m2 66874.93 g Magy Hassan [place] - [facility] 04/26/2024 16:06:43 Date Recorded Body height Oxygen saturation Oxygen saturation in Arterial blood by Pulse oximetry Body mass index (BMI) Body weight Heart rate Systolic blood pressure Diastolic blood pressure Provider Name and Address Organization Details Last Updated DateTime 157.48 cm 98 % 98 % 25.6 kg/m2 00911.9 3 g 71 /min 122 mm[Hg] 65 mm[Hg] CATHERINE ERWIN, [address], [address] [place], [place] - [facility] 13:45:21 Date Recorded Body height Body mass index (BMI) Body weight Provider Name and Address Organization Details Last Updated DateTime 09/21/2023 157.48 cm 25.6 kg/m2 05715.93 g Lorenza Villarreal [facility] 09/21/2023 10:22:52 Social History None recorded. Functional [...] Disorder N Anesthesia Complications N Heart Attack ([place]) Y Other Skin Condition Y Diabetes N [...] Note [id number] QUETA MATTHEWS PA-C [facility] [address] [address] 09/21/2023 10:18:14 09/21/2023 10:37:56 Vasomotor rhinitis 0076489 J30.0 Nasal mucosa dry 5142402 2 J34.89 [id number] QUETA MATTHEWS PA-C [facility] [address] [address] 2024 10:14:30 2024 10:41:37 Acute sinusitis 35862502 J01.90 Nasal congestion 3518315 0 R09.81 Nasal mucosa dry 5570930 2 J34.89 Vasomotor rhinitis 26213 03 J30.0 Posterior rhinorrhea 758 29642 R09.82 [id number] ANGELIKA RODRÍGUEZ PA-C [facility] [address] [address] 04/26/2024 16:01:00 04/26/2024 16:33:24 Posterior rhinorrhea 02084132 R09.82 Anterior rhinorrhea 2772 60060 J34.89 Allergic rhinitis 013403 04 J30.9 Headache 66448768 R51.9 [id number] ROSA GUZMÁN [facility] [address] [place] [address] [address] 05/22/2024 12:32:38 05/22/2024 13:55:12 Allergic rhinitis 61979797 J30.9 Health Concerns Section Related Observation LastModified by Organization Detai ls LastModified Time None Recorded Concern Status LastModified by Organization Details LastModified Time None Recorded Advance Directives Directive None Recorded Payers Insurance Date Sequence Insurance Name Policy Number Policy Kuo Covered Member ID Kuo Member ID Guarantor Name 05/23/2024 1 [facility] (MEDICARE REPLACEMENT/ ADVANTAGE - HMO) [facility] Minor [id number] Jessa Minor 05/23/2024 2 [place] [facility] Jessa Minor [id number] Jessa Minor Notes Date Note Type Note [...] distribution, and hyposmia. MARLA MOYER MD 100 [facility],[address], [address], [facility] - [facility] 09/21/2023 11:31:24 2024 text/html 69 year old [...] stopped her fluticasone. TY SMITH MD 100 [facility],[place] [address], [place], [address], [facility] - [facility] 2024 16:46:20 04/26/2024 text/html 69yo female with [...] has lupus and is closely followed by [place] [facility]ology. TY SMITH MD [address] [place] [address], [address], [facility] - [facility] 04/26/2024 17:40:05 OBGyn Episode No OBEpisode recorded.
--- OUTSIDE RECORDS SUMMARY | 2024-09-13 13:44 | XMS_ITS ---
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 2023-02-23 No Data Available Ipratropium [place] 0.03 % Solution USE 2 SPRAYS EACH NOSTRILS 1-3 TIMES DAILY 15 MINUTES BEFORE MEALS 2023-05-06 No Data Available Diclofenac Sodium 1 % Gel 4 grams topica lly to affected area 4 times per day PRN 2023-07-09 No Data Available Loratadine 10 mg Tab TAKE 1 TABLET BY [facility] EVERY DAY 2023-07-27 No Data Available Escitalopram Oxalate 20 mg Tab No Data Available 06-10 No Data Available Triamcinolone Acetonide 0.1 % Oint No Data Available 2022-08-20 No Data Available Hydroxychloroquine Sulfate 2 00 mg Tab TAKE 1 AND 1/2 TABLETS BY MOUTH EVERY DAY 2023-08-19 No Data Available Terazosin 1 mg Cap TAKE 1 CAPSULE BY [facility] EVERYDAY AT BEDTIME 2023-12-14 No Data Available [...] for 7 days 2024-07-19 No Data Available Azelastine 137 MCG/SPRAY Solution No Data Available 2023-09-21 No Data Available LORazepam 0.5 mg Tab No Data Available 2023-10-07 No Data Available MELATONIN PROLONGED RELEASE 10 MG TBCR No Data Available 2023-02-09 No Data Available Hyoscyamine Sulfate 0.125 mg Tab TAKE 1 TABLET ORALLY 2 TIMES A DAY NEEDED FOR DYSPEPSIA 2024-05-15 No Data Available Albuterol Sulfate HFA 108 (9 0 Base) MCG/ACT Aerosol Solution INHALE 1 PUFF 4 TIMES A DAY NEEDED FOR SHORTNESS OF BREATH OR WHEEZING FOR 30 DAYS 2024-07-13 No Data Available MELATONIN PROLONGED RELEASE 10 MG TBCR No Data Available 2023-10-07 No Data Available LORazepam 0.5 mg Tab No Data Available 2024-03-21 No Data Available Azelastine 137 MCG/SPRAY Solution No Data Available 2024-02-08 No Data Available Albuterol Sulfate HFA 108 (9 0 Base) MCG/ACT Aerosol Solution INHALE 1 PUFF 4 TIMES A DAY NEEDED FOR SHORTNESS OF BREATH OR WHEEZING FOR 30 DAYS 2024-07-13 No Data Available Ibuprofen 600 mg Tab TAKE ONE TABLET YOUSIF RY 6 HOURS NEEDED MILD PAIN 2024-08-23 No Data Available Amoxicillin 500 mg Cap TAKE ONE CAPSULE EVERY 8 HOURS UNTIL FINISHED 2024-08-23 No Data Available Nitrofurantoin Macrocrystal 100 mg Cap Take 1 tablet PO twice daily for 5 days. 2024-09-08 No Data Available Ondansetron 8 mg Tab Disintegrating 1 tablet orally every 8 hours as needed nausea/vomiting 2024-09-08 No Data Available Acetaminophen 500 mg Tab 2 tablets orall y TID PRN fever/pain 2024-09-08 No Data Available Fluconazole 150 mg Tab Take 1 tablet PO at onset of signs/symptoms of vaginal yeast infection. May take 1 tablet 48 hours later if symptoms have not improved. 2024-09-08 No Data Available Problem List Problem Status Onset Date Resolved Date Synopsis Atopic eczema Active 2022-10-15 N/A 10/15/22: Hyd rocortisone ointment as needed. Managed by Dermatology. Ketoconazole shampoo for hair and Flagyl gel for body. Symptoms managed with current treatment. Back pain Active 2022-10-15 N/A 10/15/22-Receive s steroid/epidural injections. Taking Tyshawn 600 TID1. Follow up with pain center and or PCP as scheduled2. Take medications as prescribed Frequent falls Active 2022-10-15 N/A 10/15/22: La st fall a couple weeks ago due to dizziness. Bruise to right leg, no other injuries.1. Keep walking area clear and ensure proper lighting 2. Report dizziness immediately as this can increase of falls3. Follow up with pain and PCP regarding lower back pain h/o Non-ST elevation (NSTEMI) myocardial infarction Active 2022-10-15 N/A 10/15/22: LHC done in 09/2022. No interventions.1. F/u with cardiology and or PCP as scheduled2. Complete ECHO as scheduled GastritisUC (ulcerative colitis)GERD (gastroesophageal reflux disease) Active 2022-10-15 N/A 02/03/23- contin ue plan of care and conservative measures eRx New Loperamide 2 mg Cap 2 tablets after first loose stool, then take 1 tablet after each loose stool max 4 times daily #30 capsule [id number] New Dicyclomine 20 mg Tab TAKE 1 TABLET BY MOUTH AC/HS for stomach pain/spasms #60 tablet [id number] New Ondansetron 8 mg Tab Disintegrating 1 [...] eating less than four hours before bedtime. Urinary retentionUrinary incontinence-OAB (overactive bladder)Recurrent urinary tract infection Active 2022-10-15 N/A 10/15/22: pt in need of new order for incontinence supplies- will order per pt's requestsincontinence liners/inserts quantity sufficient for QID sara-care- personal hygiene wipes- hand soap and scanning clerk as per prior order- box of medium gloves- to follow up with oil field caser and PCP for further monitoring and management hx: 10/15/22: Reports urinary retention and managed with Flomax1. Dz management discussed2. Continue to follow up with PCP09/08/24: pt reports s/sx of acute/recurrent UTI with report of flank and bladder pain- urinary frequency with report of dark, cloudy urine with foul odor- + nausea- hx of vaginal yeast infection- will order prn treatment with atb order- Pt to rest, push fluids- do not use OTC wipes, powders or creams- be mindful of appropriate hygiene -Tylenol for fever/pain- heating pad to abd- follow up as instructed and prn eRx New Fluconazole 150 mg Tab Take 1 tablet PO at onset of signs/symptoms of vaginal yeast infection. May take 1 tablet 48 hours later if symptoms have not improved. #2 tablet [id number] New Acetaminophen 500 mg Tab 2 tablets orally TID PRN fever/pain #30 tablet [id number] New Nitrofurantoin Macrocrystal 100 mg Cap Take 1 tablet PO twice daily for 5 days. #10 tablet [id number] New Ondansetron 8 mg Tab Disintegrating 1 tablet orally every 8 hours as needed nausea/vomiting #30 tablet RFx0 Health maintenance examination Active 2023-02-23 N/A colonoscopy next due 01/2024, polyps found, but not cancerous. Hypertension Active 2022-10-15 N/A 10/15/22-Not c urrently taking any bp medications per member as she reports most readings good . Exact readings by member could not be recalled.1. Encouraged to contact CB for early signs of CHF including dyspnea, fatigue, cough, edema/weight gain. Notify for a gain of more than 2-3lbs in 1 day or more than 5 pounds in 1 week.2. Encourage to limit dietary sodium3. Weigh daily02/23/23 BP 134/80 Lupus Active 2023-08-30 N/A HYDROXYCHLOROQ UINE 200 MG TABf/u with pcp annually Other problems related to medical facilities and other health care Active 2023-08-30 N/A Monthly fo llow up calls with ptCONTINGENCY PLANWhy was the member in the hospital or ER most recently? Why are they most likely to go back?Please call [facility] if you have a change in condition, Blood pressure > 170/90Acute illness, change in condition or medication and with any questions about your healthFall, any unusual symptoms or have any medical questions! Vaginal yeast infection Resolved 2023-02-23 2023-08-30 V aginal yeast infection symptoms of itchy vaginal area, [...] labia mirora for itchy and sensitivity too Sinus congestion Resolved 2022-10-20 2023-08-30 ns flush , warm compress to sinus area, continue to monitor. call back if pain does not resolve in 1 day or becomes worst Pinched nerve Resolved 2023-01-05 2023-08-30 01/05/23:- Sent in Rx for Tizanidine 4mg TID PRN- Tylenol q6h PRN pain- Cont. to take Gabapentin 600mg TID, as directed by PM- Apt. 01/25 scheduled already. 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 GEETA 7 [...] sessions3. Follow up with Psychiatry for provider assignment Abdominal pain Active 2024-09-05 N/A 09/05/24: Rx: Dicyclomine 20 mg Tab-TAKE 1 TABLET BY MOUTH BEFORE MEALS AND AT BEDTIME FOR STOMACH PAIN/SPASMS. Recommend bland diet-BRAT diet-Bananas, rice, applesauce, toast. Avoid coffee, alcohol, dairy products, fruit, vegetables, red meat, spicy or fried foods. F/I with GI. Contact [facility] 05/10 for any new, worsening or continued symptoms. Encounters Encounters Type Facility Date of Service Diagnosis/Co mplaint No Data Available [facility] [place]/2022 Other specified disorders of nose and nasal sinuses No Data Available [facility] [place]20[place] No Data Available [facility] [place] No Data Available [facility] [place] No Data Available [facility] [place] No Data Available [facility] [place] No Data Available [facility] [place] New patient,40-59min; chronic exacerbation, 2 stable chronic or 1 acute illness add add modifier 95 for video (do not use for phone, instead use [id number]) [facility] [place]2022 Rheumatoid arthritis, unspecifiedUlcerative colitis, unspecified, without complicationsAtopic dermatitis, unspecifiedRash and other nonspecific skin eruptionEssential (primary) hypertensionBipolar II disorderGastritis, unspecified, without bleedingDorsalgia, unspecifiedRetention of urine, unspecifiedRepeated fallsGastro-esophageal reflux disease without esophagitisOld myocardial infarction New patient,40-59min; chronic exacerbation, 2 stable chronic or 1 acute illness add add modifier 95 for video (do not use for phone, instead use [id number]) [facility] [place] New patient,40-59min; chronic exacerbation, 2 stable chronic or 1 acute illness add add modifier 95 for video (do not use for phone, instead use 92130-56) [facility] [place]20[place] New patient,40-59min; chronic exacerbation, 2 stable chronic or 1 acute illness add add modifier 95 for video (do not use for phone, instead use 18033-81) [facility] [place]20[place] New patient,40-59min; chronic exacerbation, 2 stable chronic or 1 acute illness add add modifier 95 for video (do not use for phone, instead use 50078-19) [facility] [place] 10[place]20[place] New patient,40-59min; chronic exacerbation, 2 stable chronic or 1 acute illness add add modifier 95 for video (do not use for phone, instead use [id number]) [facility] [place] 10[place]2022 New patient,40-59min; chronic exacerbation, 2 stable chronic or 1 acute illness add add modifier 95 for video (do not use for phone, instead use 43078-70) [facility] [place]20[place] New patient,40-59min; chronic exacerbation, 2 stable chronic or 1 acute illness add add modifier 95 for video (do not use for phone, instead use 50484-94) [facility] [place] No Data Available [facility] [place] 01/05/2023 Mononeuropathy, unspecified No Data Available [facility] [place] 01[place]16/2023 Essential (primary) hypertensionBipolar II disorderOld myocardial infarctionRheumatoid arthritis, unspecifiedGastritis, unspecified, without bleedingUlcerative colitis, unspecified, without complicationsDorsalgia, unspecifiedAtopic dermatitis, unspecifiedRash and other nonspecific skin eruptionRetention of urine, unspecifiedRepeated fallsGastro-esophageal reflux disease without esophagitisNasal congestionMononeuropathy, unspecified No Data Available [facility] [place] Data Available [facility] [place] No Data Available [facility] [place] No Data Available [facility] [place] No Data Available [facility] [place] No Data Available [facility] [place] 02[place]2023 Ulcerative colitis, unspecif ied, without complicationsGastritis, unspecified, without bleedingGastro-esophageal reflux disease without esophagitisRetention of urine, unspecifiedUnspecified urinary incontinenceOveractive bladder No Data Available [facility] [place] 02/[place]/2023 Acute candidiasis of vulva a nd vaginaEncntr for general adult medical exam w/o abnormal findingsEssential (primary) hypertension No Data Available [facility] [place]2023 No Data Available [facility] [place] 02/[place]2023 No Data Available [facility] [place]2023 No Data Available [facility] [place] 02[place]2023 No Data Available [facility] [place] 06[place]/2023 Rheumatoid arthritis, unspec ified No Data Available [facility] [place] 07/09/2023 Rheumatoid arthritis, unspec ified No Data Available [facility] [place] 07[place]2023 No Data Available [facility] [place]/09[place]2023 No Data Available [facility] [place] 07[place]09[place]2023 No Data Available [facility] [place] 07/13/2023 Rheumatoid arthritis, unspec ified No Data Available [facility] [place] 07/13[place]2023 No Data Available [facility] [place]20[place] Estab. patient 30-39min; chronic exacerbation, 2 stable chronic or 1 acute illness add add modifier 95 for video, (do not use for phone, instead use 21862-82) [facility] [place]2023 Essential (primary) hypertensionBipolar II disorderOld myocardial [...] (do not use for phone, instead use 27721-93) [facility] [place]20[place] Estab. patient 30-39min; chronic exacerbation, 2 stable chronic or 1 acute illness add add modifier 95 for video, (do not use for phone, instead use 89989-47) [facility] [place]/20[place] Estab. patient 30-39min; chronic exacerbation, 2 stable chronic or 1 acute illness add add modifier 95 for video, (do not use for phone, instead use 83062-17) [facility] [place]/20[place] Estab. patient 30-39min; chronic exacerbation, 2 stable chronic or 1 acute illness add add modifier 95 for video, (do not use for phone, instead use 25899-26) [facility] [place]/2023 Estab. patient 30-39min; chronic exacerbation, 2 stable chronic or 1 acute illness add add modifier 95 for video, (do not use for phone, instead use 81204-80) [facility] [place]/2023 Estab. patient 30-39min; chronic exacerbation, 2 stable chronic or 1 acute illness add add modifier 95 for video, (do not use for phone, instead use 44669-95) [facility] [place] 08/[place]/2023 Estab. patient 30-39min; chronic exacerbation, 2 stable chronic or 1 acute illness add add modifier 95 for video, (do not use for phone, instead use 49917-85) [facility] [place] Estab. patient 30-39min; chronic exacerbation, 2 stable chronic or 1 acute illness add add modifier 95 for video, (do not use for phone, instead use 29274-67) [facility] [place] Estab. patient 30-39min; chronic exacerbation, 2 stable chronic or 1 acute illness add add modifier 95 for video, (do not use for phone, instead use 56273-37) [facility] [place] Estab. patient 10-29min; 1 minor problem; add add modifier 95 for video, modifier 93 for phone [facility] [place] 04[place]2024 Chronic sinusitis, unspecifi ed Estab. patient 10-29min; 1 minor problem; add add modifier 95 for video, modifier 93 for phone [facility] [place] 04[place]20[place] Estab. patient 10-29min; 1 minor problem; add add modifier 95 for video, modifier 93 for phone [facility] [place] Estab. patient 10-29min; 1 minor problem; add add modifier 95 for video, modifier 93 for phone [facility] [place]20[place] Estab. patient 10-29min; 1 minor problem; add add modifier 95 for video, modifier 93 for phone [facility] [place] 04/14/2024 Essential (primary) hypertensionBipolar II disorderOld [...] 95 for video, modifier 93 for phone [facility] [place] Estab. patient 10-29min; 1 minor problem; add add modifier 95 for video, modifier 93 for phone [facility] [place] Estab. patient 10-29min; 1 minor problem; add add modifier 95 for video, modifier 93 for phone [facility] [place] 04[place]14[place]20[place] Estab. patient 10-29min; 1 minor problem; add add modifier 95 for video, modifier 93 for phone [facility] [place] 04/14/20[place] Estab. patient 10-29min; 1 minor problem; add add modifier 95 for video, modifier 93 for phone [facility] [place] 04/14[place]20[place] Estab. patient 10-29min; 1 minor problem; add add modifier 95 for video, modifier 93 for phone [facility] [place] 05/09/2024 Acute candidiasis of vulva a nd vagina Estab. patient 10-29min; 1 minor problem; add add modifier 95 for video, modifier 93 for phone [facility] [place] 07/19/2024 Acute upper respiratory infe ction, unspecified Estab. patient 10-29min; 1 minor problem; add add modifier 95 for video, modifier 93 for phone [facility] [place] 07/19/2024 Estab. patient 10-29min; 1 minor problem; add add modifier 95 for video, modifier 93 for phone [facility] [place] 07/19/20[place] Estab. patient 10-29min; 1 minor problem; add add modifier 95 for video, modifier 93 for phone [facility] [place] 09/05/2024 Unspecified abdominal pain Estab. patient 10-29min; 1 minor problem; add add modifier 95 for video, modifier 93 for phone [facility] [place] 09/08/2024 Unspecified abdominal painOt her problems related to medical facilities and other health careBody mass index (bmi) 28.0-28.9, adult Estab. patient 10-29min; 1 minor problem; add add modifier 95 for video, modifier 93 for phone [facility] [place] 09/08/2024 Retention of urine, unspecifiedUnspecified urinary incontinenceOveractive bladderUrinary tract infection, site not specified Estab. patient 10-29min; 1 minor problem; add add modifier 95 for video, modifier 93 for phone [facility] [place] 09/08/2024 Vital Signs Date of Collection Vitals 2022-10-20 [...] - 115.0 /minBody Temperature - 37.94 Arabella 2024-09-05 09:02:34 BP Diastolic - 62.0 mm[Hg]BP Systolic - 157.0 mm[Hg]Heart Rate - 93.0 /minBody Temperature - 36.72 CelO2 % BldC Oximetry - 95.0 % 2024-09-08 13:43:08 Weight - 65.77 kgBod y Mass Index (BMI) - 28.32 kg/m2 2024-09-08 19:25:40 BP Diastolic - 59.0 mm[Hg]BP Systolic - 160.0 mm[Hg]Heart Rate - 72.0 /minO2 % BldC Oximetry - 98.0 % Social History Sex Female History of Procedures Procedures Service Procedure code Service date Servicing provider Phone# No Data Available [id number] 2022-10-20 No Data Available No Data Available [...] <80 (3078F) 3078F 2022-10-20 No Data Available N o Data Available New patient,40-59min; chronic exacerbation, 2 stable chronic or 1 acute illness add add modifier 95 for video (do not use for phone, instead use 63544-73) [id number] 2022-10-15 No Data Available No Data Availa [...] Available Advance care planning discussed and documented advance care plan or surrogate decision-maker was [...] Available No Data Available No Data Available [id number] 2023-07-13 No Data Available No Data Available [...] (do not use for phone, instead use [id number]) [id number] 2023-08-30 No Data Available No Data Availa ble Medication List Documented (1159F) 1159F 2023-08-30 No Data Available No Data Anastacia ilable Medication Review by prescribing provider or pharmacist documented (1160F) 1160F 2023-08-30 No Data Available No Data Ansatacia ilable Pain Assessment - Pain Documented on a Pain Scale (1125F) 1125F 2023-08-30 No Data Available No Data Anastacia ilable BMI obtained (3008F) 3008F 2023-08-30 No Data Availab le No Data Available Advance Care Directive Advance care planning discussion documented in the medical record (1158F) 1158F 2023-08-30 No Data Available No Data Availa ble Advance care planning discussed and documented advance care plan or surrogate decision-maker was [...] 95 for video, modifier 93 for phone [id number] 2024-04-12 No Data Available No Data Availa ble No Data Available 1159 2024-04-12 No Data Available No Data Available SBP >= 140 3077F 2024-04-12 No Data Available No Data Available DBP <80 (3078F) 3078F 2024-04-12 No Data Available No Data Available Estab. patient 10-29min; 1 minor problem; add add modifier 95 for video, modifier 93 for phone 2024-04-14 No Data Available No Data Availa [...] 95 for video, modifier 93 for phone [id number] 2024-05-09 No Data Available No Data Availa ble Estab. patient 10-29min; 1 minor problem; add add modifier 95 for video, modifier 93 for phone [id number] 2024-07-19 No Data Available No Data Availa ble SBP < 130 (3074F) 3074F 2024-07-19 No Data Available No Data Available DBP <80 (3078F) 3078F 2024-07-19 No Data Available No Data Available Estab. patient 10-29min; 1 minor problem; add add modifier 95 for video, modifier 93 for phone [id number] 2024-09-05 No Data Available No Data Availa ble Estab. patient 10-29min; 1 minor problem; add add modifier 95 for video, modifier 93 for phone [id number] 2024-09-08 No Data Available No Data Availa ble Estab. patient 10-29min; 1 minor problem; add add modifier 95 for video, modifier 93 for phone [id number] 2024-09-09 No Data Available No Data Availa ble SBP >= 140 3077F 2024-09-09 No Data Available No Data Available Functional [...] Upper respiratory tr act infection, unspecified type 2024-09-05 09:02:34 Follow up plan for a cute symptoms 09/08/24 at 4:30pm with APPAbdominal pain 2024-09-08 13:43:08 Abdominal painOther problems related to medical facilities and other health care 2024-09-08 19:25:40 Follow up plan for a cute symptoms:Urinary retentionUrinary incontinence-OAB (overactive bladder)Recurrent urinary tract infection Plan of Care Date of Service Plans [...] modifier 95Advance care planning discussed and documented advance care plan or surrogate decision-maker was documented in the medical record. (1123F)Advance care planning discussed and documented in the medical record beneficiary/patient did not wish to or was [...] 09/25/22 but has to repeat for unknown reasons8/3/23-Stopped taking unknown medication but scheduled to f/u [...] stool max 4 times daily #30 capsule [id number] New Dicyclomine 20 mg Tab TAKE 1 TABLET BY MOUTH AC/HS for stomach pain/spasms #60 tablet CEm0mYi New Ondansetron 8 mg Tab Disintegrating 1 [...] sara-care- personal hygiene wipes- hand soap and scanning clerk as per prior order- box of medium gloves- to follow up with oil field caser and PCP for further monitoring and management hx: 10/15/22: Reports urinary retention and managed with Flomax1. Dz management discussed2. Continue to follow up with PCP 2023-02-23 11:16:05 New Diflucan 150 mg Tab Take 1 tablet PO. May take 1 tablet 72 hours later if symptoms have not improved. #2 tablet OUi9Pnd Miconazole Nitrate 2 % Crm Vaginal Apply to affected area daily x 7 days. #1 applicator [id number] (patient, parent, or guardian); 11-20 minutes of [...] modifier 95Advance care planning discussed and documented advance care plan or surrogate decision-maker was [...] Follow up with Psychiatry for provider assignment10/15/22: [facility] done in 09/2022. No interventions.1. F/u [...] on 07/12/23 at scheduled apptF/U with COURTNEY 07/12/244/30/24pt was seen by pcp earlier today, x ray was done, pt was started on prednisone tperImmunodeficiency due to: RA, Lupus, ulcerative colitisweakened immune system, encourage hand washing, avoid large crowds, stay up to date on vaccines (annual flu), monitor for and report early any s/s of zegexdvgd16/22/23- continue plan of care and conservative measures eRx New Loperamide 2 mg Cap 2 tablets after first loose stool, then take 1 tablet after each loose stool max 4 times daily #30 capsule [id number] New Dicyclomine 20 mg Tab TAKE 1 TABLET BY MOUTH AC/HS for stomach pain/spasms #60 tablet [id number] New Ondansetron 8 mg Tab Disintegrating 1 [...] sara-care- personal hygiene wipes- hand soap and scanning clerk as per prior order- box of medium gloves- to follow up with oil field caser and PCP for further monitoring and [...] they most likely to go back?[facility] have a change in condition, Blood pressure > 170/90Acute illness, change in condition or medication and with any questions about your healthFall, any unusual symptoms or have any medical questions! 2024-04-11 17:04:12 Televideo 10-29min; 1 minor problem; add add modifier 95 for video, modifier 93 for phoneContinue to see PCP. Follow-up with [facility] [...] for phoneContinue to see PCP. Follow-up with [facility] as [...] for and report early any s/s of yiwkigpaa01/22/23- continue plan of care and conservative measures eRx New Loperamide 2 mg Cap 2 tablets after first loose stool, then take 1 tablet after each loose stool max 4 times daily #30 capsule [id number] New Dicyclomine 20 mg Tab TAKE 1 TABLET BY MOUTH AC/HS for stomach pain/spasms #60 tablet [id number] New Ondansetron 8 mg Tab Disintegrating 1 [...] sara-care- personal hygiene wipes- hand soap and scanning clerk as per prior order- box of medium gloves- to follow up with oil field caser and PCP for further monitoring and [...] they most likely to go back?Please call [facility] if you have a change in [...] for phoneContinue to see PCP. Follow-up with [facility] as needed for any acute or disease education needs that may arise 05/10.Diflucan 150 mg Tab Take 1 tablet PO. May take 1 tablet 72 hours later if symptoms have not improved. #2 tablet [id number] underwearNotify for persistant symptoms. 2024-07-19 09:11:42 Televideo 10-29min; 1 minor problem; add add modifier 95 for video, modifier 93 for phoneContinue to see PCP. Follow-up with [facility] as needed for any acute or disease education needs that may arise 05/10.Amoxicillin-Pot Clavulanate 875/125 mg Tab Take 1 tablet PO twice daily for 7 days #14 tablet [id number] to tolerate prednisoneEnc use of alb inhaler Q 4 hrs prnContinue flonase and antihistamine. Tyelnol prnRest and hydrateNotify for worsening symptoms. 2024-09-05 09:02:34 Televideo 10-29min; 1 minor problem; add add modifier 95 for video, modifier 93 for phoneContinue to see PCP. Follow-up with [facility] as needed for any acute or disease education needs that may arise 05/10.09/05/24: Rx: Dicyclomine 20 mg Tab-TAKE 1 TABLET BY MOUTH BEFORE MEALS AND AT BEDTIME FOR STOMACH PAIN/SPASMS. Recommend bland diet-BRAT diet-Bananas, rice, applesauce, toast. Avoid coffee, alcohol, dairy products, fruit, vegetables, red meat, spicy or fried foods. F/I with GI. Contact [facility] 05/10 for any new, worsening or continued symptoms. 2024-09-08 13:43:08 Estab. patient 10-29 min; 1 minor problem; add add modifier 95 for video, modifier 93 for phoneContinue to see PCP. Follow-up with [facility] as needed for any acute or disease education needs that may arise 05/10.09/05/24: Rx: Dicyclomine 20 mg Tab-TAKE 1 TABLET BY MOUTH BEFORE MEALS AND AT BEDTIME FOR STOMACH PAIN/SPASMS. Recommend bland diet-BRAT diet-Bananas, rice, applesauce, toast. Avoid coffee, alcohol, dairy products, fruit, vegetables, red meat, spicy or fried foods. F/I with GI. Contact [facility] 05/10 for any new, worsening or continued symptoms.Monthly follow up calls with ptCONTINGENCY PLANWhy was the member in the hospital or ER most recently? Why are they most likely to go back?Please call [facility] if you have a change in condition, Blood pressure > 170/90Acute illness, change in condition or medication and with any questions about your healthFall, any unusual symptoms or have any medical questions! 2024-09-08 19:25:40 Televideo 10-29min; 1 minor problem; add add modifier 95 for video, modifier 93 for phoneSBP >= 140DBP <80 (3078F)Continue to see PCP. Follow-up with [facility] as needed for any acute or disease education needs that may arise 05/10.10/15/22: pt in need of new order for incontinence supplies- will order per pt's requestsincontinence liners/inserts quantity sufficient for QID sara-care- personal hygiene wipes- hand soap and scanning clerk as per prior order- box of medium gloves- to follow up with oil field caser and PCP for further monitoring and management hx: 10/15/22: Reports urinary retention and managed with Flomax1. Dz management discussed2. Continue to follow up with PCP09/08/24: pt reports s/sx of acute/recurrent UTI with report of flank and bladder pain- urinary frequency with report of dark, cloudy urine with foul odor- + nausea- hx of vaginal yeast infection- will order prn treatment with atb order- Pt to rest, push fluids- do not use OTC wipes, powders or creams- be mindful of appropriate hygiene -Tylenol for fever/pain- heating pad to abd- follow up as instructed and prn eRx New Fluconazole 150 mg Tab Take 1 tablet PO at onset of signs/symptoms of vaginal yeast infection. May take 1 tablet 48 hours later if symptoms have not improved. #2 tablet VHx1wAa New Acetaminophen 500 mg Tab 2 tablets orally TID PRN fever/pain #30 tablet [id number] New Nitrofurantoin Macrocrystal 100 mg Cap Take 1 tablet PO twice daily for 5 days. #10 tablet GBm6aCj New Ondansetron 8 mg Tab Disintegrating 1 tablet orally every 8 hours as needed nausea/vomiting #30 tablet RFx0 Goals Date Goal 2022-10-20 do a NS nasal flush, apply warm compresses to you sinuses. if the pain does not resolve by tomorrow or if it gets worst please call us again 2022-10-15 Continue taking medi cations as directed and keep all follow up appointments with established PCP and Specialist. 2023-02-23 Diflucan and miconaz ole sent, call anytime if no improvement Health Concerns Date Concern 2024-09-09 Patient/Guardian parul eemilagros to visit via telehealth.Visit completed via: [ ] audio and video; [x] audio only 2024-09-09 Concerns for today's visit: s/sx of UTISummary: NO acute distress- pt reports acute/recurrent UTI s/sx x 1 week- + R flank pain - reports radiates down R leg, + bladder/abdominal discomfort, urinary frequency, nausea (no vomiting) - reports urine is dark, cloudy, and has a strong odor. She reports she did do a urine test which was + for white blood cells- no blood or bacteria she says- Refer to A&P- Pt aware to call 05/10 with any non-emergent needs- TO ED with emergent needs. Pharmacy confirmed
--- OUTSIDE RECORDS SUMMARY | 2024-09-13 13:44 | XMS_ITS | Patient Health Record ---
Author Organization [facility] Address [address] [place] [address] Care Team Providers Care Manager Brand Name Role Phone Osiris Soni MD Primary Care Provider Alban Gerard Jr Unavailable [phone] Allergies No Known Allergies Reason For [...] ORALLY DAILY Oral for 90 Active Ipratropium [place] 0.03 % USE 2 SPRAYS EACH NOSTRILS [...] Problem Status W/U Status Risk Notes Problem 027403897 Colon cancer screening (Z12.11) Active confirmed Problem 232849545 Gastro-esophage al reflux disease without esophagitis (K21.9) Active confirmed Problem 583535034 Generalized abdominal pain (R10.84) Active confirmed Problem 33785441 Other dysphagia (R13.19) Active confirmed Problem Dysphagia (52759812) Dysphagia (R13.10) Active confirmed Problem 20181540 Constipation, unspecified constipation type (K59.00) Active confirmed Problem Gastritis (0206922) Gastritis (K29.70) Active confirmed Problem 51613022 Diarrhea, unspecified type (R19.7) Active confirmed Problem Gastroesophageal reflux disease (908006624) Esophageal reflux disease (K21.9) Active confirmed Problem 40661631 Gastric intestinal metaplasia (K31.A0) Active confirmed Vital Signs Temperature 98.0 degrees Fahrenheit 11/29/2023 Blood pressure diastolic 00 mm Hg 11/29/2023 Height 65.5 in 11/29/2023 Blood pressure systolic 000 mm Hg 11/29/2023 Weight 145 lbs 11/29/2023 BMI 23.76 kg/m2 11/29/2023 Encounters Encounter Location Date Provider Diagnosis [facility] [address] [place], [place] [id number] 01/07/2024 Alban Lopez Jr Colon cancer screening Z12.11 and Family history of colon cancer Z80.0 [facility] [address] [place] [address] 11/29/2023 Alban John Toscano Gastro-esophageal reflux disease [...] Insured Coverage Start Date Coverage End Date [facility] [address] [address] [place] [address] [id number] MAGGIE PAULETTE Self - patient is the insured MEDICAID OF [facility] [address] [place] [address] [id number] PAULETTE SERRANO Self - patient is the insured Medical (General) History Medical History History ICD Code Hypertension bipolar disorder GERD, upper endoscopy 3, gastric intestinal metaplasia at one site, 2-3 year followup diverticulitis arthritis neuropathy Colonoscopy 01/31 benign cecal polyp, te n-year followup lupus Surgical History Surgery Date(Month/Year) hysterectomy 1985
[2024-09-13 13:47] VITALS: BP 142/82; PULSE 65; RESP 16; TEMP 36.6; O2SAT 98; BMI 24.5
== END 2024-09-13 15:20 | disposition home or self-care (01) ==
LOC: HO.HMCC 13:08
PROVIDERS: PCP Internal Medicine; Visit Provider Internal Medicine
DX: Z13.9 Encounter for screening, unspecified (principal)

== ENCOUNTER → 2024-09-13 13:07 | Outpatient (BNVA) | payer OTHER, SELFPAY | PROVIDERS: PCP Internal Medicine; Visit Provider Internal Medicine | DX: Z00.01 Encounter for general adult medical examination with abnormal findings (principal); R35.0 Frequency of micturition; K21.9 Gastro-esophageal reflux disease without esophagitis; M17.11 Unilateral primary osteoarthritis, right knee; I10 Essential (primary) hypertension; J30.9 Allergic rhinitis, unspecified; M85.89 Other specified disorders of bone density and structure, multiple sites; E78.5 Hyperlipidemia, unspecified; M32.19 Other organ or system involvement in systemic lupus erythematosus | CPT/HCPCS: 81003; 99397 ==

== ENCOUNTER 2024-10-12 13:24 | Outpatient (AMB) | payer OTHER, SELFPAY ==
--- NOTE | 2024-10-12 13:27 | MHC.OFFVIS ---
Intake Visit Reasons: 4M follow up/ PVR Intake Note: Patient is present for 4M/PVR Urology Medication:ESTRADIOL,TERAZOSIN Antibiotic Allergy:NONE Blood Thinner:NONE TODAY'S PVR:236ML'S [employer] Required: No Allergies prednisone Adverse Reaction (Intermediate, Verified 10/12/24 14:26) Anxiety Medication List - Last Reconciled 10/12/24 by ERICA WarrenP- albuterol sulfate 90 mcg/actuation 1 inh inhalation QID PRN 30 days bupropion HCl 1 tab PO DAILY diclofenac sodium 1% 2 grams topical BID PRN dicyclomine 20 mg PO QID escitalopram oxalate 10 mg PO DAILY@1300 PRN estradiol 0.01%(0.1mg/gram) vaginally 3 times a week; pea sized amount to urethra 3 times a week 30 days gabapentin 1 tab PO DAILY geriatric mqakuekw-lubv-sagi (Centravites 50 Plus tablet) 1 tab PO DAILY hydroxychloroquine 300 mg (1.5 x 200 mg) PO DAILY 90 days hyoscyamine sulfate 0.125 mg PO BID PRN leg brace (Knee Support Brace) As directed Hinged knee brace right Dx: osteoarthritis lorazepam 0.5 mg PO DAILY PRN melatonin 10 mg PO BEDTIME PRN ondansetron 8 mg PO TID terazosin 1 mg PO BEDTIME 90 days HPI Comments Details: Jessa is a pleasant 69-year-old female patient of Dr. Soni who was accompanied by her daughter at today's office visit. She has a past medical history of anxiety, arthritis, bipolar, degenerative disc disease, diverticulitis, dyslipidemia, hypertension, GERD, history of cervical cancer, irritable bowel syndrome with constipation, neuropathy, osteopenia. She presents to the office today for follow-up regarding her recurrent urinary tract infections and incomplete bladder emptying. In discussion with the patient today she reports to be doing and feeling well. She reports compliance with Estrace cream and terazosin as prescribed. She reports having recently followed up with her PCP for UTI like symptoms at which time she was noted to have an infection and has since completed antibiotic therapy. We did discussed potential causes of recurrent urinary tract infections in the setting of incomplete bladder emptying. In office urinalysis results reviewed with the patient today. Negative leukocytes negative nitrates. Initial PVR 236 mL however patient was able to double void and postvoid residual was noted to be 105 mL. Previous workup has included a retroperitoneal ultrasound 11/04 noting bilateral kidneys with no lesions and or hydronephrosis noted. Left kidney with probable 1 by 8 x 9 mm peripelvic cyst in the upper pole. No imaging follow-up recommended per radiology report. The bladder is well distended. Bladder wall upper normal in thickness measuring 4 mm. No stone or masses visualized. Pre void bladder volume is approximately 400 mL. Postvoid bladder volume is approximately 150 mL. When asked she denies urinary urgency, urinary frequency, incontinence, nocturia, hematuria, dysuria, foul smelling urine, changes to urinary stream, flank pain, fever, and or chills. She is happy with her current voiding parameters. She otherwise offers no other issues or concerns at this time. [facility] Medical History Eosinophilia Asthma Allergic rhinitis Dyspnea on exertion Restrictive lung disease Venous insufficiency Right carotid bruit Diverticulitis Bipolar 1 disorder GERD (gastroesophageal reflux disease) History of cervical cancer Irritable bowel syndrome with constipation Weak urinary stream Surgical menopause Osteopenia Essential hypertension Dyslipidemia Anxiety Surgical History History of cardiac cath Hx of esophagogastroduodenoscopy Hx of colonoscopy History of partial hysterectomy Family History Father Throat cancer Mother No problems noted. Brother No problems noted. Sister No problems noted. Sister No problems noted. Sister No problems noted. Sister Hyperlipidemia HTN (hypertension) Depression Myocardial infarction Daughter No problems noted. Daughter No problems noted. Daughter No problems noted. Daughter No problems noted. Paternal Aunt Rheumatoid arthritis Other Mental health disorder Substance use disorder Social History Housing: Apartment Alcohol intake: current Alcohol intake frequency: does not drink Alcohol type: wine Patient Tobacco Use Status: Former Tobacco user e-Cigarette/Vaping Use: Never Used Advance Directives Date on File: 01/15/23 service: No Current occupational status: unemployed Cognitive needs: No Hearing needs: No Vision needs: No Review of Systems Const Reports as per HPI Eyes Reports no additional complaints ENT Reports no additional complaints Card Reports as per HPI Resp Reports no additional complaints GI Reports as per HPI Reports as per HPI Musc Reports as per HPI Neuro Reports as per HPI Psych Reports as per HPI Albino/Lymph Reports no additional complaints Aller/Immun Reports no additional complaints Physical Exam Const General: cooperative, healthy appearing, comfortable, no acute distress, well developed, alert and awake Nutritional Appearance: average body habitus Orientation/consciousness: patient oriented x3 Limitations: no limitations HEENT Head: Yes normal to inspection, Yes normocephalic and Yes atraumatic Ears: hearing grossly normal bilaterally Eyes General: appearance normal, both eyes and all related structures Neck Neck: Yes normal visual inspection and Yes trachea midline Chest Chest palpation & inspection: normal inspection of the chest Resp Effort & Inspection: normal respiratory effort and able to speak in complete sentences Cardio Rate: regular rate GI Inspection: Yes normal to inspection General: Yes no CVA tenderness Back/Spine/Pelvis Back: no CVA tenderness Skin General skin exam: no rashes or lesions noted Neuro General: patient oriented x3 Extrem General: Yes normal to inspection Psych Appearance: grossly normal and well kempt Mental Status: mental status grossly normal Speech and movement: Normal speech and movement present and Clear speech present Affect: normal affect Attitude: cooperative Thought process: Normal thought process present Thought content: Normal thought content present Insight: Fair insight present (Psych) Judgement: Fair judgement present (Psych) Office Procedures Post Void Residual Post Residual Void Post Void Residual (PVR): 236 [id number] Void Residual by ultrasound Post Void Residual Post Residual Void Details: #2 Post Void Residual (PVR): 105 [id number]-[id number] Void Residual by ultrasound Results AMB Urinalysis, Automated UA Leukoctes 0 Alexander/uL Last Edit by DAMARIS Guidry on 10/12/24 13:52 UA Nitrite Negative Last Edit by DAMARIS Guidry on 10/12/24 13:52 UA Urobilinogen 0.2 mg/dL Last Edit by DAMARIS Guidry on 10/12/24 13:52 UA Protein 0 mg/dL Last Edit by DAMARIS Guidry on 10/12/24 13:52 UA pH 6.0 Last Edit by DAMARIS Guidry on 10/12/24 13:52 UA Blood 0 Sivakumar/uL Last Edit by DAMARIS Guidry on 10/12/24 13:52 UA Specific [place] 1.005 Last Edit by DAMARIS Guidry on 10/12/24 13:52 UA Ketone Negative Last Edit by DAMARIS Guidry on 10/12/24 13:52 UA Bilirubin 0 mg/dL Last Edit by DAMARIS Guidry on 10/12/24 13:52 UA Glucose 0 mg/dL Last Edit by DAMARIS Guidry on 10/12/24 13:52 Results Reviewed Results Reviewed: Laboratory Last Values Urine pH (Auto) 6.0 10/12/24 13:51 Specific [place] (Auto) 1.005 10/12/24 13:51 Urine Protein (Auto) 0 mg/dL 10/12/24 13:51 Glucose (UA)(Auto) 0 mg/dL 10/12/24 13:51 Urine Ketones (Auto) Negative 10/12/24 13:51 Urine Blood (Auto) 0 Sivakumar/uL 10/12/24 13:51 Urine Nitrite (Auto) Negative 10/12/24 13:51 Urine Bilirubin (Auto) 0 mg/dL 10/12/24 13:51 Urine Urobilinogen (Auto) 0.2 mg/dL 10/12/24 13:51 Leukocyte Esterase (Auto) 0 Alexander/uL 10/12/24 13:51 Assessment & Plan Assessment & Plan (1) Renal cyst: Code(s): N28.1 - Cyst of kidney, acquired Category: Medical (2) Incomplete bladder emptying: Code(s): R33.9 - Retention of urine, unspecified Category: Medical (3) Recurrent UTI (urinary tract infection): Code(s): N39.0 - Urinary tract infection, site not specified Category: Medical Plan In office urinalysis results reviewed with the patient today; as noted above. Initial PVR 236 mL; 2nd void PVR 105 mL. Stop terazosin. Start bethanechol as discussed and prescribed. Continue Estrace cream We did discussed correlation of recurrent urinary tract infections with incomplete bladder emptying. We discussed continuing to attempt to double void to assist with bladder emptying. She currently denies any UTI like symptoms. Follow-up in 1-3 months with PVR; or sooner with any issues, concerns, and or questions. Orders: Orders AMB Urinalysis Automated Today Z13.9 - Encounter for screening, unspecified AMB Urinalysis Automated Today Z13.9 - Encounter for screening, unspecified Medications: New bethanechol chloride 50 mg PO BID 60 tabs 3RF 30 days Discontinued terazosin Discontinued Reason: Doctor's Order 1 mg PO BEDTIME 90 days 90 caps 1RF R39.12 - Poor urinary stream Patient Instructions: The patient had an opportunity to ask questions regarding the treatment plan. All questions were answered. Physical exam, labs, and imaging were discussed and reviewed in detail. As well as risks, benefits, and discussion of treatment choices. No major barriers to understanding were identified. The patient expressed understanding and agreement with the above treatment plan. The patient was made aware they should contact our office by phone for worsening of their current condition, the appearance of new symptoms, or with any questions or concerns. Compliance is encouraged with any medications and follow up testing that is ordered. It is a privilege to be allowed the opportunity to participate in? your urological care.? Again, if you have any questions or concerns If you have any questions or concerns please do not hesitate to contact me. The office is [phone]. This note is constructed using voice recognition software. While every effort has been made to ensure accuracy agribusiness internship errors may have been included. Yours sincerely, JASON Warren Coding Level of Care Code Est Pt Level 4 (45823) Complex EM visit Add On G2211 Diagnoses Renal cyst N28.1 Incomplete bladder emptying R33.9 Recurrent UTI (urinary tract infection) N39.0 CPT Codes Post Residual Void - PVR CPT Code: 61923-Vdmp Void Residual by ultrasound ([id number]) Post Residual Void - PVR CPT Code: 22350-Wqpj Void Residual by ultrasound ([id number])
--- OUTSIDE RECORDS SUMMARY | 2024-10-12 13:37 | XMS_ITS | Clinical Summary ---
Author Organization [facility] Address [address] [place] [address] Care Team Providers Care Emt/Dispatcher Name Role Phone Unavailable Primary Care Provider [...] times daily. 1 g 3 4 Active Sodium Fluoride 1.1 % cream [place] teeth for 2 minutes, morning and night. Spit, do not rinse. Do not eat or drink anything for 30 minutes following use. 112 g 3 5 Active Active Problems Problem Noted Date Diagnosed Date Lupus (systemic lupus erythematosus) 07/05/2024 Encounters Date Type Department Care Team Description 10/03/2024 1:00 PM EDT Office Visit [facility] [address] [place] [address] Pancho Butcher, NILA Abrasion of teeth, localized (Primary Dx); Tooth abrasion; Inflammatory lesion of periapical tissue surrounding dental implant ([facility]/HCC) 09/28/2024 1:30 PM EDT Office Visit [facility] [address] [place] [address] Erica Tejada DDS 09/01/2024 3:00 PM EDT Office Visit [facility] [address] [place] [address] Erica Tejada DDS 08/23/2024 1:30 PM EDT Office Visit [facility] [address] [place] [address] Raffy Johnston DMD History of tooth extraction, unspecified edentulism class (Primary Dx) from Last 3 Months Social [...] Sign Reading Time Taken Comments Blood Pressure 130/78 10/03/2024 1:09 PM EDT Pulse 65 08/25/2023 3:57 PM EDT Temperature - - Respiratory Rate - - Oxygen Saturation - - Inhaled Oxygen Concentration - - Weight - - Height - - Body Mass Index - - Plan of Treatment Upcoming Encounters Date Type Department Care Team (Late st Contact Info) Description 10/16/2024 2:40 PM EDT Office Visit [facility] [address] [place] [address] Health Maintenance Due Date Last Done Comments [...] Risk 60-74 years 1-dose series) 2014 Dental X-Ray: Full Mouth 08/28/2023 021, 12/15/2012, 03/03/2012 COVID-19 Vaccine ( season) 2023 04/06/2023, 01/14/2022, 02/03/2021, Additional history exists Dental Prophylaxis 02/25/2024 08/25/2023, 1 04/25/2022, 02/05/2020, Additional history exists Influenza Vaccine (#1) 2024 , 01/14/2022, 12/20/2020, Additional history exists Dental Oral Exam 04/06/2025 10/03/2024, 01/2023, 08/26/2020, Additional history exists Tobacco Screening 10/03/2025 10/03/2024 Dental X-Ray: Bitewings 10/04/2025 10/04/19 25, 02/22/2023, 08/26/2020, Additional history exists Pneumococcal Vaccine: 50+ Years Completed 04/06/2023, 08/14/2022, 01/15/2021, Additional history exists HIB Vaccines Aged Out No longer eligi [...] Procedure Name Priority Date/Time Associated Diagnosis Comments INTRAORAL - PERIAPICAL EACH ADDITIONAL RADIOGRAPHIC IMAGE Routine 10/03/2024 1:00 PM EDT PERIODIC ORAL EVALUATION - ESTABLISHED PATIENT Routine 10/03/2024 1:00 PM EDT INTRAORAL - PERIAPICAL FIRST RADIOGRAPHIC IMAGE Routine 10/03/2024 1:00 PM EDT BITEWINGS - 4 RADIOGRAPHIC IMAGES Routine 10/03/2024 1:00 PM EDT 3 CROWN - PORCELAIN/CERAMIC Routine 10/03/2024 12:00 AM EDT 2 L AMALGAM FILLING Routine 10/03/2024 1 2:00 AM EDT 2 M AMALGAM FILLING Routine 10/03/2024 1 2:00 AM EDT LIMITED ORAL EVALUATION - PROBLEM FOCUSED Routine 09/28/2024 1:30 PM EDT RE-EVAL - POST-OP OFFICE VISIT Routine 09/01/2024 3:00 PM EDT LL REMOVAL OF TORUS MANDIBULARIS Routine 08/23/2024 1:30 PM EDT LR REMOVAL OF TORUS MANDIBULARIS Routine 08/23/2024 1:30 PM EDT PROPHYLAXIS - ADULT Routine 08/25/2023 2 :00 PM EDT INTRAORAL - COMPLETE SERIES OF RADIOGRAPHIC IMAGES Routine 08/26/2020 12:00 AM EDT from Last 3 Months or Most Recently Relevant to Health Maintenance Insurance DENTAL - [facility]
--- OUTSIDE RECORDS SUMMARY | 2024-10-12 13:37 | XMS_ITS | Patient Health Record ---
Author Organization [facility] Address [address] [place] [address] Care Team Providers Care Prep Room Supervisor Name Role Phone Osiris Soni MD Primary Care Provider Alban Gerard Jr Unavailable [phone] Allergies No Known Allergies Reason For [...] ORALLY DAILY Oral for 90 Active Ipratropium [place] 0.03 % USE 2 SPRAYS EACH NOSTRILS [...] Problem Status W/U Status Risk Notes Problem [id number] Colon cancer screening (Z12.11) Active confirmed Problem [id number] Gastro-esophagea l reflux disease without esophagitis (K21.9) Active confirmed Problem 275313516 Generalized abdominal pain (R10.84) Active confirmed Problem 90193508 Other dysphagia (R13.19) Active confirmed Problem Dysphagia (90164873) Dysphagia (R13.10) Active confirmed Problem 77670911 Constipation, unspecified constipation type (K59.00) Active confirmed Problem Gastritis (7419484) Gastritis (K29.70) Active confirmed Problem 29545186 Diarrhea, unspecified type (R19.7) Active confirmed Problem Esophageal reflu x disease (K21.9) Active confirmed Problem 07873689 Gastric intestinal metaplasia (K31.A0) Active confirmed Vital Signs Temperature 98.0 degrees Fahrenheit 11/29/2023 Blood pressure diastolic 00 mm Hg 11/29/2023 Height 65.5 in 11/29/2023 Blood pressure systolic 000 mm Hg 11/29/2023 Weight 145 lbs 11/29/2023 BMI 23.76 kg/m2 11/29/2023 Encounters Encounter Location Date Provider Diagnosis [facility] [address] [place], [place] [id number] 01/07/2024 Alban John Colon cancer screening Z12.11 and Family history of colon cancer Z80.0 [facility] [address] [place] [address] 11/29/2023 Alban Lopez Jr Gastro-esophageal reflux disease [...] Insured Coverage Start Date Coverage End Date [facility] [address] [address] [place] [address] [id number] MAGGIE PAULETTE Self - patient is the insured MEDICAID OF [facility] [address] [place] [address] [id number] PAULETTE SERRANO Self - patient is the insured Medical (General) History Medical History History ICD Code Hypertension bipolar disorder GERD, upper endoscopy 3, gastric intestinal metaplasia at one site, 2-3 year followup diverticulitis arthritis neuropathy Colonoscopy 01/31 benign cecal polyp, te n-year followup lupus Surgical History Surgery Date(Month/Year) hysterectomy 1985
--- OUTSIDE RECORDS SUMMARY | 2024-10-12 13:37 | XMS_ITS ---
Author Name Jenae Larson NP Address [address] [place] [address] Phone [phone] Organization [facility] Care Team Providers Care Log Scaler Name Role Phone Jenae Larson Unavailable [phone] Alban Lopez Unavailable [phone] Reason for Referral Not Available Allergies, adverse [...] 7 days. 2023-02-23 No Data Available Ipratropium [place] 0.03 % Solution USE 2 SPRAYS EACH NOSTRILS 1-3 TIMES DAILY 15 MINUTES BEFORE MEALS 2023-05-06 No Data Available Diclofenac Sodium 1 % Gel 4 grams topica lly to affected area 4 times per day PRN 2023-07-09 No Data Available Loratadine 10 mg Tab TAKE 1 TABLET BY [facility] EVERY DAY 2023-07-27 No Data Available Escitalopram Oxalate 20 mg Tab No Data Available 06-10 No Data Available Triamcinolone Acetonide 0.1 % Oint No Data Available 2022-08-20 No Data Available Hydroxychloroquine Sulfate 2 00 mg Tab TAKE 1 AND 1/2 TABLETS BY MOUTH EVERY DAY 2023-08-19 No Data Available Terazosin 1 mg Cap TAKE 1 CAPSULE BY [facility] EVERYDAY AT BEDTIME 2023-12-14 No Data [...] stool max 4 times daily #30 capsule VVi8hWm New Dicyclomine 20 mg Tab TAKE 1 TABLET BY MOUTH AC/HS for stomach pain/spasms #60 tablet PKf4uZh New Ondansetron 8 mg Tab Disintegrating 1 [...] pt's requestsincontinence liners/inserts quantity sufficient for QID asra-care- personal hygiene wipes- hand soap and manager ent as per prior order- box of medium gloves- to follow up with case supervisor and PCP for further monitoring and management [...] if symptoms have not improved. #2 tablet PSu0mWc New Acetaminophen 500 mg Tab 2 tablets orally TID PRN fever/pain #30 tablet RJd0uFt New Nitrofurantoin Macrocrystal 100 mg Cap Take 1 tablet PO twice daily for 5 days. #10 tablet TCe0vVu New Ondansetron 8 mg Tab Disintegrating 1 [...] they most likely to go back?Please call [facility] if you have a change in [...] or fried foods. F/I with GI. Contact [facility] 05/10 for any new, worsening or continued symptoms. Encounters Encounters Type Facility Date of Service Diagnosis/Co mplaint No Data Available [facility] [place] Other specified disorders of nose and nasal sinuses No Data Available [facility] [place] Data [place] [facility] [place] [facility] [place] [facility] [place] [facility] [place] [facility] [place] New patient,40-59min; chronic exacerbation, 2 stable chronic or 1 acute illness add add modifier 95 for video (do not use for phone, instead use 78613-72) [facility] [place] Rheumatoid arthritis, unspecifiedUlcerative colitis, unspecified, without complicationsAtopic dermatitis, unspecifiedRash and other nonspecific skin eruptionEssential (primary) hypertensionBipolar II disorderGastritis, unspecified, without bleedingDorsalgia, unspecifiedRetention of urine, unspecifiedRepeated fallsGastro-esophageal reflux disease without esophagitisOld myocardial infarction New patient,40-59min; chronic exacerbation, 2 stable chronic or 1 acute illness add add modifier 95 for video (do not use for phone, instead use 86579-18) [facility] [place] New patient,40-59min; chronic exacerbation, 2 stable chronic or 1 acute illness add add modifier 95 for video (do not use for phone, instead use 93471-60) [facility] [place] New patient,40-59min; chronic exacerbation, 2 stable chronic or 1 acute illness add add modifier 95 for video (do not use for phone, instead use 56355-51) [facility] [place] New patient,40-59min; chronic exacerbation, 2 stable chronic or 1 acute illness add add modifier 95 for video (do not use for phone, instead use 90725-61) [facility] [place] New patient,40-59min; chronic exacerbation, 2 stable chronic or 1 acute illness add add modifier 95 for video (do not use for phone, instead use 70731-37) [facility] [place] New patient,40-59min; chronic exacerbation, 2 stable chronic or 1 acute illness add add modifier 95 for video (do not use for phone, instead use 34794-86) [facility] [place] New patient,40-59min; chronic exacerbation, 2 stable chronic or 1 acute illness add add modifier 95 for video (do not use for phone, instead use 93043-91) [facility] [place] No Data Available [facility] [place]2023 Mononeuropathy, unspecified No Data Available [facility] [place]23 Essential (primary) hypertensionBipolar II disorderOld myocardial infarctionRheumatoid arthritis, unspecifiedGastritis, unspecified, without bleedingUlcerative colitis, unspecified, without complicationsDorsalgia, unspecifiedAtopic dermatitis, unspecifiedRash and other nonspecific skin eruptionRetention of urine, unspecifiedRepeated fallsGastro-esophageal reflux disease without esophagitisNasal congestionMononeuropathy, unspecified No Data Available [facility] [place] No Data [place] [facility] [place] No Data Available [facility] [place] No Data Available [facility] [place]23 No Data Available [facility] [place] No Data Available [facility] [place] 02[place]2023 Ulcerative colitis, unspecif ied, without complicationsGastritis, unspecified, without bleedingGastro-esophageal reflux disease without esophagitisRetention of urine, unspecifiedUnspecified urinary incontinenceOveractive bladder No Data Available [facility] [place] 02/[place]2023 Acute candidiasis of vulva a nd vaginaEncntr for general adult medical exam w/o abnormal findingsEssential (primary) hypertension No Data Available [facility] [place] No Data Available [facility] [place] 02/[place]2023 No Data Available [facility] [place] 02/[place]2023 No Data Available [facility] [place] 02/[place]2023 No Data Available [facility] [place] 06[place]2023 Rheumatoid arthritis, unspec ified No Data Available [facility] [place] 07/09/2023 Rheumatoid arthritis, unspec ified No Data Available [facility] [place] 07/09[place]2023 No Data Available [facility] [place] 07/09[place]2023 No Data Available [facility] [place] 07/09/2023 No Data Available [facility] [place] 07/13/2023 Rheumatoid arthritis, unspec ified No Data Available [facility] [place] 07/13[place]2023 No Data Available [facility] [place] 07[place]23 Estab. patient 30-39min; chronic exacerbation, 2 stable chronic or 1 acute illness add add modifier 95 for video, (do not use for phone, instead use 42404-92) [facility] [place] Essential (primary) hypertensionBipolar II disorderOld myocardial [...] (do not use for phone, instead use 57602-89) [facility] [place] Estab. patient 30-39min; chronic exacerbation, 2 stable chronic or 1 acute illness add add modifier 95 for video, (do not use for phone, instead use 55081-19) [facility] [place] Estab. patient 30-39min; chronic exacerbation, 2 stable chronic or 1 acute illness add add modifier 95 for video, (do not use for phone, instead use 59761-40) [facility] [place] Estab. patient 30-39min; chronic exacerbation, 2 stable chronic or 1 acute illness add add modifier 95 for video, (do not use for phone, instead use 92274-48) [facility] [place] Estab. patient 30-39min; chronic exacerbation, 2 stable chronic or 1 acute illness add add modifier 95 for video, (do not use for phone, instead use 09519-82) [facility] [place] Estab. patient 30-39min; chronic exacerbation, 2 stable chronic or 1 acute illness add add modifier 95 for video, (do not use for phone, instead use 60662-05) [facility] [place] Estab. patient 30-39min; chronic exacerbation, 2 stable chronic or 1 acute illness add add modifier 95 for video, (do not use for phone, instead use 34693-25) [facility] [place] Estab. patient 30-39min; chronic exacerbation, 2 stable chronic or 1 acute illness add add modifier 95 for video, (do not use for phone, instead use 21110-87) [facility] [place] Estab. patient 30-39min; chronic exacerbation, 2 stable chronic or 1 acute illness add add modifier 95 for video, (do not use for phone, instead use 17040-76) [facility] [place] Estab. patient 10-29min; 1 minor problem; add add modifier 95 for video, modifier 93 for phone [facility] [place] 04/[place]2024 Chronic sinusitis, unspecifi ed Estab. patient 10-29min; 1 minor problem; add add modifier 95 for video, modifier 93 for phone [facility] [place] 04[place] Estab. patient 10-29min; 1 minor problem; add add modifier 95 for video, modifier 93 for phone [facility] [place] Estab. patient 10-29min; 1 minor problem; add add modifier 95 for video, modifier 93 for phone [facility] [place] Estab. patient 10-29min; 1 minor problem; add add modifier 95 for video, modifier 93 for phone [facility] [place] 04/14/2024 Essential (primary) hypertensionBipolar II [...] 95 for video, modifier 93 for phone [facility] [place] 04[place] Estab. patient 10-29min; [...] phone [facility] [place] Estab. patient 10-29min; 1 minor problem; add add modifier 95 for video, modifier 93 for phone [facility] [place] 09[place] Estab. patient 10-29min; 1 minor problem; add add modifier 95 for video, modifier 93 for phone [facility] [place] 09/08[place]2024 Unspecified abdominal painOt her problems related to medical facilities and other health careBody mass index (bmi) 28.0-28.9, adult Estab. patient 10-29min; 1 minor problem; add add modifier 95 for video, modifier 93 for phone [facility] [place] 09/08[place]2024 Retention of urine, unspecifiedUnspecified urinary incontinenceOveractive bladderUrinary tract infection, site not specified Estab. patient 10-29min; 1 minor problem; add add modifier 95 for video, modifier 93 for phone [facility] [place] 09[place]08/[place] Estab. patient 10-29min; 1 minor problem; add add modifier 95 for video, modifier 93 for phone [facility] [place] 09/[place]/2024 Vital Signs Date of Collection Vitals [...] date Servicing provider Phone# No Data Available [id number] 2022-10-20 No Data Available No Data Available [...] (do not use for phone, instead use 81884-43) [id number] 2022-10-15 No Data Available No Data Availa [...] No Data Avail able No Data Available [id number] 2023-01-05 No Data Available No Data Available No Data Available [id number] 2023-01-16 No Data Available No Data Available [...] No Data Anastacia ilable No Data Available [id number] 2023-02-03 No Data Available No Data Available No Data Available [id number] 2023-02-23 No Data Available No Data Available SBP 130-139 (3075F) 3075F 2023-02-23 No Data Availabl e No Data Available DBP 80-89 (3079F) 3079F 2023-02-23 No Data Available No Data Available Functional Status Assessed (1170F) 1170F 2023-02-23 No Data Available No Data Avail able Pain Assessment - NO pain present (1126F) 1126F 2023-02-23 No Data Available No Data A vailable No Data Available [id number] 2023-06-11 No Data Available No Data Available No Data Available [id number] 2023-07-09 No Data Available No Data Available Medication List Documented (1159F) 1159F 2023-07-09 No Data Available No Data Anastacia ilable SBP >= 140 3077F 2023-07-09 No Data Available No Data Available DBP <80 (3078F) 3078F 2023-07-09 No Data Available No Data Available No Data Available [id number] 2023-07-13 No Data Available No Data Available [...] (do not use for phone, instead use 90764-92) [id number] 2023-08-30 No Data Available No Data Availa [...] 95 for video, modifier 93 for phone [id number] 2024-04-12 No Data Available No Data Availa ble No Data Available 1159 2024-04-12 No Data Available No Data Available SBP >= 140 3077F 2024-04-12 No Data Available No Data Available DBP <80 (3078F) 3078F 2024-04-12 No Data Available No Data Available Estab. patient 10-29min; 1 minor problem; add add modifier 95 for video, modifier 93 for phone 03204 2024-04-14 No Data Available No Data Availa [...] 95 for video, modifier 93 for phone [id number] 2024-05-09 No Data Available No Data Availa ble Estab. patient 10-29min; 1 minor problem; add add modifier 95 for video, modifier 93 for phone 47688 2024-07-19 No Data Available No Data Availa ble SBP < 130 (3074F) 3074F 2024-07-19 No Data Available No Data Available DBP <80 (3078F) 3078F 2024-07-19 No Data Available No Data Available Estab. patient 10-29min; 1 minor problem; add add modifier 95 for video, modifier 93 for phone 14664 2024-09-05 No Data Available No Data Availa ble SBP >= 140 3077F 2024-09-05 No Data Available No Data Available DBP <80 (3078F) 3078F 2024-09-05 No Data Available No Data Available Estab. patient 10-29min; 1 minor problem; add add modifier 95 for video, modifier 93 for phone [id number] 2024-09-08 No Data Available No Data Availa ble Estab. patient 10-29min; 1 minor problem; add add modifier 95 for video, modifier 93 for phone [id number] 2024-09-09 No Data Available No Data Availa ble SBP >= 140 3077F 2024-09-09 No Data Available No Data Available DBP <80 (3078F) 3078F 2024-09-09 No Data Available No Data Available [...] Follow up with Psychiatry for provider assignment10/15/22: [facility] done in 09/2022. No interventions.1. F/u [...] stool max 4 times daily #30 capsule ZTz9eSd New Dicyclomine 20 mg Tab TAKE 1 TABLET BY MOUTH AC/HS for stomach pain/spasms #60 tablet YIo4aLx New Ondansetron 8 mg Tab Disintegrating 1 [...] sara-care- personal hygiene wipes- hand soap and manager ent as per prior order- box of medium gloves- to follow up with case supervisor and PCP for further monitoring and management hx: 10/15/22: Reports urinary retention and managed with Flomax1. Dz management discussed2. Continue to follow up with PCP 2023-02-23 11:16:05 New Diflucan 150 mg Tab Take 1 tablet PO. May take 1 tablet 72 hours later if symptoms have not improved. #2 tablet NAh5Qvs Miconazole Nitrate 2 % Crm Vaginal Apply to affected area daily x 7 days. #1 applicator [id number] (patient, parent, or guardian); 11-20 minutes of [...] or disease education needs that may arise 2023-07-09 12:04:19 Phone (patient, erik nt, or guardian); 5-10 minutes of medical [...] for and report early any s/s of dyhmzrhpz51/22/23- continue plan of care and conservative measures eRx New Loperamide 2 mg Cap 2 tablets after first loose stool, then take 1 tablet after each loose stool max 4 times daily #30 capsule PIb7qWx New Dicyclomine 20 mg Tab TAKE 1 TABLET BY MOUTH AC/HS for stomach pain/spasms #60 tablet UAa0eNw New Ondansetron 8 mg Tab Disintegrating 1 [...] sara-care- personal hygiene wipes- hand soap and manager ent as per prior order- box of medium gloves- to follow up with case supervisor and PCP for further monitoring and management [...] they most likely to go back?Please call [facility] if you have a change in [...] for phoneContinue to see PCP. Follow-up with [facility] as needed for any acute or [...] Follow up with Psychiatry for provider assignment10/15/22: [facility] done in 09/2022. No interventions.1. F/u [...] for and report early any s/s of cdymdyyxi99/22/23- continue plan of care and conservative measures eRx New Loperamide 2 mg Cap 2 tablets after first loose stool, then take 1 tablet after each loose stool max 4 times daily #30 capsule XPl7zHs New Dicyclomine 20 mg Tab TAKE 1 TABLET BY MOUTH AC/HS for stomach pain/spasms #60 tablet PRe8aLu New Ondansetron 8 mg Tab Disintegrating 1 [...] sara-care- personal hygiene wipes- hand soap and manager ent as per prior order- box of medium gloves- to follow up with case supervisor and PCP for further monitoring and management [...] they most [facility] to go back?[facility] a [facility], [...] if symptoms have not improved. #2 tablet SKh5Lazpcs underwearNotify for persistant symptoms. 2024-07-19 09:11:42 Televideo 10-29min; 1 minor problem; add add modifier 95 for video, modifier 93 for phoneContinue to see PCP. Follow-up with [facility] as needed for any acute or disease education needs that may arise 05/10.Amoxicillin-Pot Clavulanate 875/125 mg Tab Take 1 tablet PO twice daily for 7 days #14 tablet FQd8Cgaczd to tolerate prednisoneEnc use of alb inhaler Q 4 hrs prnContinue flonase and antihistamine. Tyelnol prnRest and hydrateNotify for worsening symptoms. 2024-09-05 09:02:34 Televideo 10-29min; 1 minor problem; add add modifier 95 for video, modifier 93 for phoneContinue to see PCP. Follow-up with [facility] as needed for any acute or disease education needs that may arise 05/10.09/05/24: Rx: Dicyclomine 20 mg Tab-TAKE 1 TABLET BY MOUTH BEFORE MEALS AND AT BEDTIME FOR STOMACH PAIN/SPASMS. Recommend bland diet-BRAT diet-Bananas, rice, applesauce, toast. Avoid coffee, alcohol, dairy products, fruit, vegetables, red meat, spicy or fried foods. F/I with GI. Contact [facility] 05/10 for any new, worsening or continued symptoms. 2024-09-08 13:43:08 Estab. patient 10-29 min; 1 minor problem; add add modifier 95 for video, modifier 93 for phoneContinue to see PCP. Follow-up with [facility] as needed for any acute or disease education needs that may arise 05/10.09/05/24: Rx: Dicyclomine 20 mg Tab-TAKE 1 TABLET BY MOUTH BEFORE MEALS AND AT BEDTIME FOR STOMACH PAIN/SPASMS. Recommend bland diet-BRAT diet-Bananas, rice, applesauce, toast. Avoid coffee, alcohol, dairy products, fruit, vegetables, red meat, spicy or fried foods. F/I with GI. Contact [facility] 05/10 for any new, worsening or continued symptoms.Monthly follow up calls with ptCONTINGENCY PLANWhy was the member in the hospital or ER most recently? Why are they most likely to go back?Please call [facility] if you have a change in condition, Blood pressure > 170/90Acute illness, change in condition or medication and with any questions about your healthFall, any unusual symptoms or have any medical questions! 2024-09-08 19:25:40 Televideo 10-29min; 1 minor problem; add add modifier 95 for video, modifier 93 for phoneSBP >= 140DBP <80 (3078F)Continue to see PCP. Follow-up with [facility] as needed for any acute or disease education needs that may arise 05/10.10/15/22: pt in need of new order for incontinence supplies- will order per pt's requestsincontinence liners/inserts quantity sufficient for QID sara-care- personal hygiene wipes- hand soap and manager ent as per prior order- box of medium gloves- to follow up with case supervisor and PCP for further monitoring and management [...] if symptoms have not improved. #2 tablet ZWb5cGo New Acetaminophen 500 mg Tab 2 tablets orally TID PRN fever/pain #30 tablet UNz3gDl New Nitrofurantoin Macrocrystal 100 mg Cap Take 1 tablet PO twice daily for 5 days. #10 tablet SYb8hDm New Ondansetron 8 mg Tab Disintegrating 1 [...] Health Concerns Date Concern 2024-09-09 Patient/Guardian parul hurtado to visit via telehealth.Visit completed via: [ [...]
--- OUTSIDE RECORDS SUMMARY | 2024-10-12 13:37 | XMS_ITS | Clinical Summary ---
Author Organization [facility] it Address [address] [place] [address] Care Team Providers Care Chainstitch Pants Outseamer Name Role Phone Osiris Soni MD Primary [...] Vaccine ( - 2023-2 5 season) 2023 Depression Screening 03/15/2024 Influenza Vaccine (#1) 2024 RSV Immunization Adult Patie nts (1 [...] age to complete this topic Care Teams Chainstitch Pants Outseamer Relationship Specialty Start Date End Date Osiris Soni MD [address] [place] [address] PCP - General Internal Medicine 06/06/11
--- OUTSIDE RECORDS SUMMARY | 2024-10-12 13:37 | XMS_ITS | Clinical Summary ---
Author Organization [facility] Address [address] [place], [place] [id number] Phone Care Team Providers Care Deburr Technician Name Role Phone Osiris Soni MD Primary Care Provider Social History Tobacco Use Types Packs/Day Years Used Date Smoking Tobacco: Never Assessed Comments Unknown Sex and Gender Information Value Date Recorded Sex Assigned at Not on file Legal Sex Female 10:23 AM EDT Gender Identity Not on file Sexual Orientation Not on file Plan of Treatment Not on file Medical Devices Not on file Insurance ACO ACO ACO ACO ACO ACO ACO ACO [facility] ACO Care Teams Deburr Technician Relationship Specialty Start Date End Date Osiris Soni MD [address] [address] PCP - General Internal Medicine 06/03/17 Additional Source Comments The information contained in this document represents components of the legal health record. It is not the complete legal health record.[facility]
== END 2024-10-12 14:20 | disposition home or self-care (01) ==
LOC: HO.HUSH 13:25
PROVIDERS: PCP Internal Medicine; Visit Provider Nurse Practitioner Family
DX: N28.1 Cyst of kidney, acquired (principal); R33.9 Retention of urine, unspecified; N39.0 Urinary tract infection, site not specified; Z13.9 Encounter for screening, unspecified
CPT/HCPCS: 99214; G2211

== ENCOUNTER → 2024-10-12 13:24 | Outpatient (BNVA) | payer OTHER, SELFPAY | PROVIDERS: PCP Internal Medicine; Visit Provider Nurse Practitioner Family | DX: N28.1 Cyst of kidney, acquired (principal); R39.0 Extravasation of urine; R33.9 Retention of urine, unspecified | CPT/HCPCS: 51798; 81003; 99212 ==

== ENCOUNTER 2024-10-23 14:28 | Outpatient (AMB) | payer OTHER, SELFPAY ==
--- NOTE | 2024-10-23 14:40 | A.OFFVIS_ITS ---
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 Required: No Allergies prednisone Adverse Reaction (Intermediate, Verified 10/23/24 14:47) Anxiety Medication List - Last Reconciled 10/23/24 by Price Elmore MD albuterol sulfate 90 mcg/actuation 1 inh inhalation QID PRN 30 days bethanechol chloride 50 mg PO BID 30 days bupropion HCl 1 tab PO DAILY diclofenac sodium 1% 2 grams topical BID PRN dicyclomine 20 mg PO QID escitalopram oxalate 10 mg PO DAILY@1300 PRN estradiol 0.01%(0.1mg/gram) vaginally 3 times a week; pea sized amount to urethra 3 times a week 30 days gabapentin 1 tab PO DAILY geriatric azemtowy-pyom-[id number] (Centravites 50 Plus tablet) 1 tab PO DAILY hydroxychloroquine 300 mg (1.5 x 200 mg) PO DAILY 90 days hyoscyamine sulfate 0.125 mg PO BID PRN leg brace (Knee Support Brace) As directed Hinged knee brace right Dx: osteoarthritis lorazepam 0.5 mg PO DAILY PRN melatonin 10 mg PO BEDTIME PRN ondansetron 8 mg PO TID PFSH Medical History Eosinophilia Asthma Allergic rhinitis Dyspnea on exertion Restrictive lung disease Venous insufficiency Right carotid bruit Diverticulitis Bipolar 1 disorder GERD (gastroesophageal reflux disease) History of cervical cancer Irritable bowel syndrome with constipation Weak urinary stream Surgical menopause Osteopenia Essential hypertension Dyslipidemia Anxiety Surgical History History of cardiac cath Hx of esophagogastroduodenoscopy Hx of colonoscopy History of partial hysterectomy Family History Father Throat cancer Mother No problems noted. Brother No problems noted. Sister No problems noted. Sister No problems noted. Sister No problems noted. Sister Hyperlipidemia HTN (hypertension) Depression Myocardial infarction Daughter No problems noted. Daughter No problems noted. Daughter No problems noted. Daughter No problems noted. Paternal Aunt Rheumatoid arthritis Other Mental health disorder Substance use disorder Social History Housing: Apartment Alcohol intake: current Alcohol intake frequency: does not drink Alcohol type: wine Patient Tobacco Use Status: Former Tobacco user e-Cigarette/Vaping Use: Never Used Advance Directives Date on File: 01/15/23 service: No Current occupational status: unemployed Cognitive needs: No Hearing needs: No Vision needs: No Review of Systems Const All systems reviewed & are unremarkable except as noted in HPI and below Eyes Reports no additional complaints ENT Reports nasal congestion (FREQUENT) and Reports nasal obstruction (PARTIAL.) Card Denies chest pain, Denies irregular heart rhythm and Denies leg edema Resp Reports as per HPI GI Reports abdominal pain and Reports other (HISTORY OF DIVERTICULITIS) Reports no additional complaints Musc Reports myalgias Skin/Breast Reports dry skin (MINOR RED SPOTS) Neuro Reports no additional complaints Psych Reports anxiety and Reports depression Endo Reports no additional complaints Albino/Lymph Reports no additional complaints Physical Exam Const General: healthy appearing, comfortable, no acute distress, alert and awake Orientation/consciousness: patient oriented x3 HEENT Head: Yes normal to inspection General nose exam: No nasal polyps present, No nasal discharge present and Abnormal mucous membranes and turbinates present (MODERATE HYPERTROPHY OF THE NASAL TURBINATES) Face and sinus: Yes sinuses nontender Mouth: oropharynx normal Throat: Yes posterior oropharynx normal Eyes General: appearance normal, both eyes and all related structures Neck Neck: Yes normal visual inspection, Yes no lymphadenopathy, Yes trachea midline and Yes no JVD Thyroid: Thyroid normal Chest Chest palpation & inspection: normal inspection of the chest, normal palpation of entire chest wall and no tenderness Resp Other: PERCUSSION NOTE IS RESONANT. BREATH SOUNDS ARE MODERATELY DIMINISHED WITH SLIGHT. PROLONGATION OF THE EXPI RATORY PHASE NO WHEEZES RHONCHI OR CREPITATIONS ARE HEARD. Cardio Palpation: normal PMI Rate: regular rate Rhythm: regular rhythm Heart sounds: no gallops and no murmurs GI Palpation (GI): Soft to palpation, nontender, No hepatosplenomegaly present and no masses Auscultation: normal bowel sounds Back/Spine/Pelvis Thoracic/Lumbar Spine: thoracic and lumbar spine normal to inspection Skin General skin exam: no rashes or lesions noted Neuro General: patient oriented x3 and no focal motor deficits Cranial nerves: Yes CN's II-XII intact bilaterally Extrem General: Yes normal to inspection, Yes no clubbing, cyanosis or edema and Yes no calf tenderness Psych Appearance: grossly normal and well kempt Speech and movement: Normal speech and movement present Affect: Anxious affect present Results Reviewed Results Reviewed: Pulmonary function test on 08/22/2024. Consistent with mild to moderate degree of obstructive airway disorder, with borderline positive response to bronchodilator therapy . Assessment & Plan Assessment & Plan (1) Asthma: Comment: Pulmonary function test is consistent with mild small airway obstructive disorder with positive response to bronchodilator therapy This finding is suggestive of mild intermittent bronchial asthma probably due to allergic etiology . It goes along with the eosinophilia as was noticed in previous CBC results. Code(s): J45.909 - Unspecified asthma, uncomplicated Category: Medical Plan: Discussed with the patient and her daughter the results of pulmonary function test and explained that she probably does have mild intermittent bronchial asthma. TX : Will try to use ICS/LABA and see if this would improve her symptoms. For simplicity and better compliance I have ordered Breo 100-25 1 inhalation daily. And use albuterol HFA 2 puffs Q 4-6 hours only p.r.n. for bouts of wheezing or sustained cough. (2) Dyspnea on exertion: Comment: DYSPNEA ON EXERTION IS DUE TO COMBINATION OF OBSTRUCTIVE AIRWAY DISORDER, AND POOR PHYSICAL CONDITIONING. Again at noted above I will add a mild ICS/BD agent, Breo 100-25 to use 1 inhalation daily. AND SHE CAN USE ALBUTEROL INHALER ON A P.R.N. BASIS . Code(s): R06.09 - Other forms of dyspnea Category: Medical Plan: PATIENT IS EDUCATED THAT THE USE OF BREO 100-25 ONCE A DAY MAY REDUCE HER DYSPNEA ON EXERTION (3) ALONZO (obstructive sleep apnea): Comment: DIAGNOSED TO HAVE OBSTRUCTIVE SLEEP APNEA IN 2020. COULD NOT USE THE CPAP. I REVIEWED THE RESULTS AND ALONZO WAS MILD, MOSTLY POSITIONAL, IN SUPINE POSITION. PATIENT IS NOT OVERWEIGHT Code(s): G47.33 - Obstructive sleep apnea (adult) (pediatric) Category: Medical Plan: Again stressed that she should try to sleep in lateral positions. (4) Allergic rhinitis: Comment: SHE HAS CHRONIC ALLERGIC TYPE RHINITIS, IT MAY BE DUE TO MULTIPLE ENVIRONMENTAL ALLERGIES. I NOTICE THAT SHE HAS CHRONIC EOSINOPHILIA WHICH POINTS TO ALLERGIC COMPONENT . Code(s): J30.9 - Allergic rhinitis, unspecified Category: Medical Plan: Claritin 10 mg once a day Medications: New fluticasone furoate-vilanterol 100-25 mcg/dose (Breo Ellipta) 1 inh inhalation DAILY 60 ea 4RF Asthma 30 days Coding Level of Care Code Est Pt Level 3 (35466) Diagnoses Asthma J45.909 Dyspnea on exertion R06.09 ALONZO (obstructive sleep apnea) G47.33 Allergic rhinitis J30.9
[2024-10-23 14:41] VITALS: BP 134/68; PULSE 81; O2SAT 97; BMI 25.2
--- OUTSIDE RECORDS SUMMARY | 2024-10-23 14:56 | XMS_ITS ---
Author Name Jenae Larson NP Address [address] [place] [address] Phone [phone] Organization [facility] Care Team Providers Care Cold Roll Catcher Name Role Phone Jenae Larson Unavailable [phone] Alban Lopez Unavailable [phone] Reason for Referral Not Available Allergies, adverse [...] 7 days. 2023-02-23 No Data Available Ipratropium [place] 0.03 % Solution USE 2 SPRAYS EACH [...] 1 mg Cap TAKE 1 CAPSULE BY [facility] EVERYDAY AT BEDTIME 2023-12-14 No Data [...] stool max 4 times daily #30 capsule [id number] New Dicyclomine 20 mg Tab TAKE 1 TABLET BY MOUTH AC/HS for stomach pain/spasms #60 tablet UHg0aBj New Ondansetron 8 mg Tab Disintegrating 1 [...] sara-care- personal hygiene wipes- hand soap and duralumin mechanic as per prior order- box of medium gloves- to follow up with embedded case manager and PCP for further monitoring [...] if symptoms have not improved. #2 tablet IGa5vOn New Acetaminophen 500 mg Tab 2 tablets orally TID PRN fever/pain #30 tablet YFn4rIs New Nitrofurantoin Macrocrystal 100 mg Cap Take 1 tablet PO twice daily for 5 days. #10 tablet ZFx1vLj New Ondansetron 8 mg Tab Disintegrating 1 [...] or fried foods. F/I with GI. Contact [facility] 05/10 for any new, worsening or continued symptoms. Encounters Encounters Type Facility Date of Service Diagnosis/Co mplaint No Data Available [facility] Other specified disorders of nose and nasal sinuses No Data Available [facility] No Data Available [facility] No Data Available [facility] No Data Available [facility] No Data Available [facility] No Data Available [facility] New patient,40-59min; chronic exacerbation, 2 stable chronic or 1 acute illness add add modifier 95 for video (do not use for phone, instead use 55109-46) [facility]2022 Rheumatoid arthritis, unspecifiedUlcerative colitis, unspecified, without complicationsAtopic dermatitis, unspecifiedRash and other nonspecific skin eruptionEssential (primary) hypertensionBipolar II disorderGastritis, unspecified, without bleedingDorsalgia, unspecifiedRetention of urine, unspecifiedRepeated fallsGastro-esophageal reflux disease without esophagitisOld myocardial infarction New patient,40-59min; chronic exacerbation, 2 stable chronic or 1 acute illness add add modifier 95 for video (do not use for phone, instead use 87928-10) [facility] New patient,40-59min; chronic exacerbation, 2 stable chronic or 1 acute illness add add modifier 95 for video (do not use for phone, instead use 15569-25) [facility] New patient,40-59min; chronic exacerbation, 2 stable chronic or 1 acute illness add add modifier 95 for video (do not use for phone, instead use 51685-77) [facility] New patient,40-59min; chronic exacerbation, 2 stable chronic or 1 acute illness add add modifier 95 for video (do not use for phone, instead use 80137-72) [facility] New patient,40-59min; chronic exacerbation, 2 stable chronic or 1 acute illness add add modifier 95 for video (do not use for phone, instead use 70711-26) [facility] New patient,40-59min; chronic exacerbation, 2 stable chronic or 1 acute illness add add modifier 95 for video (do not use for phone, instead use 10164-38) [facility] New patient,40-59min; chronic exacerbation, 2 stable chronic or 1 acute illness add add modifier 95 for video (do not use for phone, instead use 97017-24) [facility] 10[place]20[place] No Data Available [facility] 01/[place]/2023 Mononeuropathy, unspecified No Data Available [facility] 01/16/2023 Essential (primary) hypertensionBipolar II disorderOld myocardial infarctionRheumatoid arthritis, unspecifiedGastritis, unspecified, without bleedingUlcerative colitis, unspecified, without complicationsDorsalgia, unspecifiedAtopic dermatitis, unspecifiedRash and other nonspecific skin eruptionRetention of urine, unspecifiedRepeated fallsGastro-esophageal reflux disease without esophagitisNasal congestionMononeuropathy, unspecified No Data Available [facility] [place] No Data [place] [facility] [place] No Data Available [facility] [place] No Data Available [facility] [place] No Data Available [facility] [place]2023 No Data Available [facility] [place]2023 Ulcerative colitis, unspecif ied, without complicationsGastritis, unspecified, without bleedingGastro-esophageal reflux disease without esophagitisRetention of urine, unspecifiedUnspecified urinary incontinenceOveractive bladder No Data Available [facility]2023 Acute candidiasis of vulva a nd vaginaEncntr for general adult medical exam w/o abnormal findingsEssential (primary) hypertension No Data Available [facility] [place] No Data Available [facility] [place] No Data Available [facility] [place]2023 No Data Available [facility] [place]23 No Data Available [facility] [place] 06[place]2023 Rheumatoid arthritis, unspec ified No Data Available [facility] [place] 07[place]2023 Rheumatoid arthritis, unspec ified No Data Available [facility] [place]2023 No Data Available [facility] [place]2023 No Data Available [facility] [place]20[place] No Data Available [facility] [place]2023 Rheumatoid arthritis, unspec ified No Data Available [facility] [place]2023 No Data Available [facility] [place] Estab. patient 30-39min; chronic exacerbation, 2 stable chronic or 1 acute illness add add modifier 95 for video, (do not use for phone, instead use 22416-32) [facility] [place]2023 Essential (primary) hypertensionBipolar II disorderOld myocardial [...] (do not use for phone, instead use 97279-71) [facility] 08[place]/20[place] Estab. patient 30-39min; chronic exacerbation, 2 stable chronic or 1 acute illness add add modifier 95 for video, (do not use for phone, instead use 85556-26) [facility] [place] 08/[place]/2023 Estab. patient 30-39min; chronic exacerbation, 2 stable chronic or 1 acute illness add add modifier 95 for video, (do not use for phone, instead use 95950-97) [facility] [place] 08/[place]/2023 Estab. patient 30-39min; chronic exacerbation, 2 stable chronic or 1 acute illness add add modifier 95 for video, (do not use for phone, instead use 17773-37) [facility] 08/[place]/2023 Estab. patient 30-39min; chronic exacerbation, 2 stable chronic or 1 acute illness add add modifier 95 for video, (do not use for phone, instead use 73835-51) [facility]/2023 Estab. patient 30-39min; chronic exacerbation, 2 stable chronic or 1 acute illness add add modifier 95 for video, (do not use for phone, instead use 45615-37) [facility] 08/[place]/2023 Estab. patient 30-39min; chronic exacerbation, 2 stable chronic or 1 acute illness add add modifier 95 for video, (do not use for phone, instead use 48186-39) [facility] Estab. patient 30-39min; chronic exacerbation, 2 stable chronic or 1 acute illness add add modifier 95 for video, (do not use for phone, instead use 88415-27) [facility] Estab. patient 30-39min; chronic exacerbation, 2 stable chronic or 1 acute illness add add modifier 95 for video, (do not use for phone, instead use 07277-29) [facility] Estab. patient 10-29min; 1 minor problem; add add modifier 95 for video, modifier 93 for phone [facility] 04[place]/20[place] Chronic sinusitis, unspecifi ed Estab. patient 10-29min; 1 minor problem; add add modifier 95 for video, modifier 93 for phone [facility] [place] 04[place] Estab. patient 10-29min; 1 minor problem; add add modifier 95 for video, modifier 93 for phone [facility] Estab. patient 10-29min; 1 minor problem; add add modifier 95 for video, modifier 93 for phone [facility] [place] Estab. patient 10-29min; 1 minor problem; add add modifier 95 for video, modifier 93 for phone [facility]24 Essential (primary) hypertensionBipolar II [...] 95 for video, modifier 93 for phone [facility] [place] Estab. patient 10-29min; [...] 95 for video, modifier 93 for phone [facility] [place]2024 Retention of urine, unspecifiedUnspecified urinary incontinenceOveractive bladderUrinary tract infection, site not specified Estab. patient 10-29min; 1 minor problem; add add modifier 95 for video, modifier 93 for phone [facility] [place] Estab. patient 10-29min; 1 minor problem; add add modifier 95 for video, modifier 93 for phone [facility] [place] Vital Signs Date [...] date Servicing provider Phone# No Data Available [id number] 2022-10-20 No Data Available No Data Available [...] (do not use for phone, instead use 72168-81) [id number] 2022-10-15 No Data Available No Data Availa [...] No Data Avail able No Data Available [id number] 2023-01-05 No Data Available No Data Available No Data Available [id number] 2023-01-16 No Data Available No Data Available [...] No Data Anastacia ilable No Data Available [id number] 2023-02-03 No Data Available No Data Available No Data Available [id number] 2023-02-23 No Data Available No Data Available SBP 130-139 (3075F) 3075F 2023-02-23 No Data Availabl e No Data Available DBP 80-89 (3079F) 3079F 2023-02-23 No Data Available No Data Available Functional Status Assessed (1170F) 1170F 2023-02-23 No Data Available No Data Avail able Pain Assessment - NO pain present (1126F) 1126F 2023-02-23 No Data Available No Data A vailable No Data Available [id number] 2023-06-11 No Data Available No Data Available No Data Available [id number] 2023-07-09 No Data Available No Data Available Medication List Documented (1159F) 1159F 2023-07-09 No Data Available No Data Anastacia ilable SBP >= 140 3077F 2023-07-09 No Data Available No Data Available DBP <80 (3078F) 3078F 2023-07-09 No Data Available No Data Available No Data Available [id number] 2023-07-13 No Data Available No Data Available [...] (do not use for phone, instead use 35421-71) [id number] 2023-08-30 No Data Available No Data Availa [...] 95 for video, modifier 93 for phone [id number] 2024-04-12 No Data Available No Data Availa ble No Data Available 1159 2024-04-12 No Data Available No Data Available SBP >= 140 3077F 2024-04-12 No Data Available No Data Available DBP <80 (3078F) 3078F 2024-04-12 No Data Available No Data Available Estab. patient 10-29min; 1 minor problem; add add modifier 95 for video, modifier 93 for phone [id number] 2024-04-14 No Data Available No Data Availa [...] 95 for video, modifier 93 for phone [id number] 2024-05-09 No Data Available No Data Availa ble Estab. patient 10-29min; 1 minor problem; add add modifier 95 for video, modifier 93 for phone [id number] 2024-07-19 No Data Available No Data Availa ble SBP < 130 (3074F) 3074F 2024-07-19 No Data Available No Data Available DBP <80 (3078F) 3078F 2024-07-19 No Data Available No Data Available Estab. patient 10-29min; 1 minor problem; add add modifier 95 for video, modifier 93 for phone [id number] 2024-09-05 No Data Available No Data Availa ble SBP >= 140 3077F 2024-09-05 No Data Available No Data Available DBP <80 (3078F) 3078F 2024-09-05 No Data Available No Data Available Estab. patient 10-29min; 1 minor problem; add add modifier 95 for video, modifier 93 for phone [id number] 2024-09-08 No Data Available No Data Availa ble Estab. patient 10-29min; 1 minor problem; add add modifier 95 for video, modifier 93 for phone [id number] 2024-09-09 No Data Available No Data Availa [...] Follow up with Psychiatry for provider assignment10/15/22: [facility] done in 09/2022. No interventions.1. F/u with [...] stool max 4 times daily #30 capsule FBv4yAh New Dicyclomine 20 mg Tab TAKE 1 TABLET BY MOUTH AC/HS for stomach pain/spasms #60 tablet DLl7kIf New Ondansetron 8 mg Tab Disintegrating 1 [...] sara-care- personal hygiene wipes- hand soap and duralumin mechanic as per prior order- box of medium gloves- to follow up with embedded case manager and PCP for further monitoring and management hx: 10/15/22: Reports urinary retention and managed with Flomax1. Dz management discussed2. Continue to follow up with PCP 2023-02-23 11:16:05 New Diflucan 150 mg Tab Take 1 tablet PO. May take 1 tablet 72 hours later if symptoms have not improved. #2 tablet YMf3Mqy Miconazole Nitrate 2 % Crm Vaginal Apply to affected area daily x 7 days. #1 applicator KHb0Mpgut (patient, parent, or guardian); 11-20 minutes of [...] for and report early any s/s of dpxgiqlnt39/22/23- continue plan of care and conservative measures eRx New Loperamide 2 mg Cap 2 tablets after first loose stool, then take 1 tablet after each loose stool max 4 times daily #30 capsule IDn6dJp New Dicyclomine 20 mg Tab TAKE 1 TABLET BY MOUTH AC/HS for stomach pain/spasms #60 tablet KMr1xTf New Ondansetron 8 mg Tab Disintegrating 1 [...] sara-care- personal hygiene wipes- hand soap and duralumin mechanic as per prior order- box of medium gloves- to follow up with embedded case manager and PCP for further monitoring [...] for phoneContinue to see PCP. Follow-up with [facility] as needed for any acute or [...] Follow up with Psychiatry for provider assignment10/15/22: [facility] done in 09/2022. No interventions.1. F/u with [...] for and report early any s/s of ovmgmfsvq76/22/23- continue plan of care and conservative measures eRx New Loperamide 2 mg Cap 2 tablets after first loose stool, then take 1 tablet after each loose stool max 4 times daily #30 capsule HUe0aBy New Dicyclomine 20 mg Tab TAKE 1 TABLET BY MOUTH AC/HS for stomach pain/spasms #60 tablet ISc7bXx New Ondansetron 8 mg Tab Disintegrating 1 [...] sara-care- personal hygiene wipes- hand soap and duralumin mechanic as per prior order- box of medium gloves- to follow up with embedded case manager and PCP for further monitoring [...] they most likely to go back?[facility] a [facility], [...] if symptoms have not improved. #2 tablet ZOg4Minqsc underwearNotify for persistant symptoms. 2024-07-19 09:11:42 Televideo 10-29min; 1 minor problem; add add modifier 95 for video, modifier 93 for phoneContinue to see PCP. Follow-up with [facility] as needed for any acute or disease education needs that may arise 05/10.Amoxicillin-Pot Clavulanate 875/125 mg Tab Take 1 tablet PO twice daily for 7 days #14 tablet VHr6Czxbml to tolerate prednisoneEnc use of alb inhaler Q 4 hrs prnContinue flonase and antihistamine. Tyelnol prnRest and hydrateNotify for worsening symptoms. 2024-09-05 09:02:34 Televideo 10-29min; 1 minor problem; add add modifier 95 for video, modifier 93 for phoneContinue to see PCP. Follow-up with [facility] as needed for any acute or disease education needs that may arise 05/10.09/05/24: Rx: Dicyclomine 20 mg Tab-TAKE 1 TABLET BY MOUTH BEFORE MEALS AND AT BEDTIME FOR STOMACH PAIN/SPASMS. Recommend bland diet-BRAT diet-Bananas, rice, applesauce, toast. Avoid coffee, alcohol, dairy products, fruit, vegetables, red meat, spicy or fried foods. F/I with GI. Contact [facility] 05/10 for any new, worsening or continued symptoms. 2024-09-08 13:43:08 Estab. patient 10-29 min; 1 minor problem; add add modifier 95 for video, modifier 93 for phoneContinue to see PCP. Follow-up with [facility] as needed for any acute or disease education needs that may arise 05/10.09/05/24: Rx: Dicyclomine 20 mg Tab-TAKE 1 TABLET BY MOUTH BEFORE MEALS AND AT BEDTIME FOR STOMACH PAIN/SPASMS. Recommend bland diet-BRAT diet-Bananas, rice, applesauce, toast. Avoid coffee, alcohol, dairy products, fruit, vegetables, red meat, spicy or fried foods. F/I with GI. Contact [facility] 05/10 for any new, worsening or [...] sara-care- personal hygiene wipes- hand soap and duralumin mechanic as per prior order- box of medium gloves- to follow up with embedded case manager and PCP for further monitoring [...] if symptoms have not improved. #2 tablet WWe4pZt New Acetaminophen 500 mg Tab 2 tablets orally TID PRN fever/pain #30 tablet SYh1sCa New Nitrofurantoin Macrocrystal 100 mg Cap Take 1 tablet PO twice daily for 5 days. #10 tablet SLg2lEd New Ondansetron 8 mg Tab Disintegrating 1 [...]
--- OUTSIDE RECORDS SUMMARY | 2024-10-23 14:56 | XMS_ITS | Patient Health Record ---
Author Organization [facility] Address [address] [place] [address] Care Team Providers Care Pigment Processor Name Role Phone Osiris Soni MD Primary Care Provider Alban Gerard Jr Unavailable Allergies No Known Allergies Reason For Referral [...] ORALLY DAILY Oral for 90 Active Ipratropium [place] 0.03 % USE 2 SPRAYS EACH NOSTRILS [...] Problem Status W/U Status Risk Notes Problem 530122271 Colon cancer screening (Z12.11) Active confirmed Problem 889915293 Gastro-esophage al reflux disease without esophagitis (K21.9) Active confirmed Problem 553686525 Generalized abdominal pain (R10.84) Active confirmed Problem 36857637 Other dysphagia (R13.19) Active confirmed Problem Dysphagia (55965603) Dysphagia (R13.10) Active confirmed Problem 10339330 Constipation, unspecified constipation type (K59.00) Active confirmed Problem Gastritis (2012711) Gastritis (K29.70) Active confirmed Problem 19284852 Diarrhea, unspecified type (R19.7) Active confirmed Problem Gastroesophageal reflux disease (057949605) Esophageal reflux disease (K21.9) Active confirmed Problem 78573240 Gastric intestinal metaplasia (K31.A0) Active confirmed Vital Signs Temperature 98.0 degrees Fahrenheit 11/29/2023 Blood pressure diastolic 00 mm Hg 11/29/2023 Height 65.5 in 11/29/2023 Blood pressure systolic 000 mm Hg 11/29/2023 Weight 145 lbs 11/29/2023 BMI 23.76 kg/m2 11/29/2023 Encounters Encounter Location Date Provider Diagnosis [facility] [address] [place], [place] [id number] 01/07/2024 Alban Lopez Jr Colon cancer screening Z12.11 and Family history of colon cancer Z80.0 [facility] [address] [place] [address] 11/29/2023 Alban John Toscano Gastro-esophageal reflux disease [...] Insured Coverage Start Date Coverage End Date [facility] [address] [address] [place] [phone] [id number] MAGGIE PAULETTE Self - patient is the insured MEDICAID OF [facility] [address] [place] [address] [id number] PAULETTE SERRANO Self - patient is the insured Medical (General) History Medical History History ICD Code Hypertension bipolar disorder GERD, upper endoscopy 3, gastric intestinal metaplasia at one site, 2-3 year followup diverticulitis arthritis neuropathy Colonoscopy 01/31 benign cecal polyp, te n-year followup lupus Surgical History Surgery Date(Month/Year) hysterectomy 1985
--- OUTSIDE RECORDS SUMMARY | 2024-10-23 14:56 | XMS_ITS | Clinical Summary ---
Author Organization [facility] Address [address] [place], [place] [id number] Phone Care Team Providers Care Sheep Rancher Name Role Phone Osiris Soni MD Primary [...] ACO ACO ACO ACO ACO ACO ACO [facility] Care Teams Sheep Rancher Relationship Specialty Start Date End Date Osiris Soni MD [address] [place] [address] PCP - General Internal Medicine 06/03/17 Additional Source Comments The information contained in this document represents components of the legal health record. It is not the complete legal health record.[facility]
--- OUTSIDE RECORDS SUMMARY | 2024-10-23 14:56 | XMS_ITS | Clinical Summary ---
Author Organization [employer] Address [address] [place] [address] Care Team Providers Care Programmer Name Role Phone Unavailable Primary Care Provider [...] 4 Active Sodium Fluoride 1.1 % cream [place] teeth for 2 minutes, morning and night. Spit, do not rinse. Do not eat or drink anything for 30 minutes following use. 112 g 3 5 Active Active Problems Problem Noted Date Diagnosed Date Lupus (systemic lupus erythematosus) 07/05/2024 Encounters Date Type Department Care Team Description 10/03/2024 1:00 PM EDT Office Visit [facility] [address] [place] [address] Pancho Butcher, NILA Abrasion of teeth, localized (Primary Dx); Tooth abrasion; Inflammatory lesion of periapical tissue surrounding dental implant (CMS/HCC) 09/28/2024 1:30 PM EDT Office Visit [facility] [address] [place] [address] Erica Tejada, CHEVYS 09/01/2024 3:00 PM EDT Office Visit [facility] [address] [place] [address] Erica Tejada, DDS 08/23/2024 1:30 PM EDT Office Visit [facility] [address] [place] [address] Raffy Johnston DMD History of tooth extraction, [...] Mouth 08/28/2023 021, 12/15/2012, 03/03/2012 COVID-19 Vaccine (2023- season) 2023 04/06/2023, 01/14/2022, 02/03/2021, Additional history exists Dental Prophylaxis 02/25/2024 08/25/2023, 1 04/25/2022, 02/05/2020, Additional history exists Influenza Vaccine (#1) 2024 , 01/14/2022, 12/20/2020, Additional history exists Dental Oral Exam 04/06/2025 10/03/2024, 01/2023, 08/26/2020, Additional history exists Tobacco Screening 10/03/2025 10/03/2024 Dental X-Ray: Bitewings 10/04/2025 10/04/19, 02/22/2023, 08/26/2020, Additional history exists Pneumococcal Vaccine: [...] Relevant to Health Maintenance Insurance DENTAL - [facility]
--- OUTSIDE RECORDS SUMMARY | 2024-10-23 14:56 | XMS_ITS | Clinical Summary ---
Author Organization [facility] Address [address] [place] [address] Care Team Providers Care Cork Tipper Name Role Phone Osiris Soni MD Primary Care Provider [phone] Medical History Medical History Date Comments Hypertension [...] age to complete this topic Care Teams Cork Tipper Relationship Specialty Start Date End Date Osiris Soni MD [address] [place] [address] PCP - General Internal Medicine 06/06/11
== END 2024-10-23 14:56 | disposition home or self-care (01) ==
LOC: HO.HPS 14:29
PROVIDERS: PCP Internal Medicine; Visit Provider Internal Medicine
DX: J45.909 Unspecified asthma, uncomplicated (principal); R06.09 Other forms of dyspnea; G47.33 Obstructive sleep apnea (adult) (pediatric); J30.9 Allergic rhinitis, unspecified
CPT/HCPCS: 99213

== ENCOUNTER → 2024-10-23 14:28 | Outpatient (BNVA) | payer OTHER, SELFPAY | PROVIDERS: PCP Internal Medicine; Visit Provider Internal Medicine | DX: J45.909 Unspecified asthma, uncomplicated (principal); J82.83 Eosinophilic asthma; R06.09 Other forms of dyspnea; G47.33 Obstructive sleep apnea (adult) (pediatric); Z87.891 Personal history of nicotine dependence; Z79.899 Other long term (current) drug therapy | CPT/HCPCS: 99212 ==

== ENCOUNTER 2024-11-07 13:38 | Outpatient (REF) | payer OTHER, SELFPAY ==
--- NOTE | ~2024-11-07 | XR_ITS ---
EXAMINATION: XR HAND, RIGHT XR HAND, LEFT CLINICAL INFORMATION: M32.19 - Other organ or system involvement in systemic lupus erythematosus COMPARISON: July 13, 2023. TECHNIQUE: PA, lateral, and oblique views of each hand.. FINDINGS: RIGHT HAND AND WRIST: There is joint space narrowing involving the proximal and distal interphalangeal joints of the digits pronounced on the fifth digit. The metacarpal bones are intact. The phalanges are intact with normal alignment. There is an 8 mm lytic lesion with sclerotic margins at the capitate. No subcutaneous emphysema. No metallic or radiopaque foreign body. LEFT HAND AND WRIST: Joint space narrowing involving the proximal and distal interphalangeal joints of the digits pronounced in the fifth digit. Carpal bones are intact with normal alignment. Metacarpal bones are intact. Phalanges are intact with normal alignment. No subcutaneous emphysema. No metallic or radiopaque foreign body. 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 Electronically signed by: Mati Camp MD 11/08/2024 07:15 AM EDT
--- NOTE | ~2024-11-07 | XR_ITS ---
EXAMINATION: XR FOOT, BILATERAL CLINICAL INFORMATION: M32.19 - Other organ or system involvement in systemic lupus erythematosus COMPARISON: None available. TECHNIQUE: AP, lateral, and oblique views of the feet. FINDINGS: Joint space narrowing involving the distal interphalangeal joints of the toes, bilaterally. There is medial deviation of the distal phalanges of the fourth and fifth toes of the left foot. No acute cortical disruption or gross malalignment. Exostosis at the Achilles tendon insertion, bilaterally pronounced on the right side. No joint effusion. No lytic or blastic lesions. No subcutaneous emphysema. XR/XR Foot [place] 3V IMPRESSION: Osteoarthritis/osteoarthrosis both feet. Enthesopathy, Achilles tendon, bilaterally. Electronically signed by: Mati Camp MD 11/08/2024 07:18 AM EDT
--- NOTE | ~2024-11-07 | XR_ITS ---
EXAMINATION: XR SHOULDER, LEFT CLINICAL INFORMATION: M32.19 - Other organ or system involvement in systemic lupus erythematosus COMPARISON: None available. TECHNIQUE: AP external rotation, Grashey, scapular Y, and axillary views of the left shoulder. FINDINGS: Degenerative changes in the acromioclavicular joint. Small, 3 mm calcification at the supraspinatus tendon insertion. No acute cortical disruption or malalignment. No lytic or blastic lesions. XR/XR shoulder LT min 2V IMPRESSION: Osteoarthritis/osteoarthrosis, left acromioclavicular joint. Probable calcific tendinosis/tendinopathy, supraspinatus. Electronically signed by: Mati Camp MD 11/08/2024 07:10 AM EDT
[2024-11-07 16:36] LABS: MANUAL DIFF FLAG NO
[2024-11-07 17:32] LABS: Hematocrit 39.8 % (37.0-47.0); Hemoglobin 13.4 g/dl (12.0-16.0); Imm Gran Abs Auto 0.01 X10*3/uL (0.00-0.03); Imm Gran Pct Auto 0.2 % (0.0-0.4); Lymphocytes Absolute Auto 1.0 X10*3/uL (1.2-4.9); Mean Corpuscular HGB Conc 33.7 g/dl (31.0-35.0); Mean Corpuscular Hemoglobin 30.1 pg (27.0-33.0); Mean Corpuscular Volume 89.4 fL (80.0-98.0); NRBC Abs Auto 0.000 X10*3/uL (0.0-0.012); NRBC Pct Auto 0.0 /100WBC (0.0-0.2); Platelet Count 167 X10*3/uL (160-400); Red Blood Count 4.45 X10*6/uL (4.20-5.50); White Blood Count 5.8 X10*3/uL (4.8-10.8)
[2024-11-07 17:46] LABS: Appearance Urine Clear; Glucose Urine UA Negative (Negative); PH 8.0 (5.0-9.0); Specific Gravity - Urine <= 1.005 (1.005-1.025); UMIC TRIGGER UACC YES
[2024-11-07 18:00] LABS: UACC Culture Trigger YES
[2024-11-07 18:02] LABS: Alanine Aminotransferase 59 U/L (0-31); Aspartate Amino Transferase 54 U/L (5-31); Cholesterol 171 mg/dL (<200); Estimated Glomerular Filt Rate > 60; HDL Cholesterol 75 mg/dL (>40); Triglycerides 131 mg/dL (<150)
[2024-11-07 19:12] LABS: Total Protein Urine Random < 7 mg/dL (<12)
[2024-11-11 09:04] LABS: DNAds, Crithidia Antibody Negative (Negative)
== END 2024-11-07 13:39 | disposition home or self-care (01) ==
LOC: HO.LAB 13:38
PROVIDERS: PCP Internal Medicine; Visit Provider Internal Medicine Rheumatology
DX: M32.19 Other organ or system involvement in systemic lupus erythematosus (principal); M17.11 Unilateral primary osteoarthritis, right knee; M19.042 Primary osteoarthritis, left hand; M19.041 Primary osteoarthritis, right hand; E78.5 Hyperlipidemia, unspecified; M85.89 Other specified disorders of bone density and structure, multiple sites; R21 Rash and other nonspecific skin eruption; I10 Essential (primary) hypertension; R13.10 Dysphagia, unspecified; R74.01 Elevation of levels of liver transaminase levels; Z79.899 Other long term (current) drug therapy; Z51.81 Encounter for therapeutic drug level monitoring
CPT/HCPCS: 36415; 73030; 73130; 73630; 80061; 81001; 82306; 82565; 82570; 84156; 84450; 84460; 85025; 85652; 86140; 86160; 86255; 87086; 99212

== ENCOUNTER 2024-11-07 13:38 | Outpatient (AMB) | payer OTHER, SELFPAY ==
--- OUTSIDE RECORDS SUMMARY | 2024-01-07 07:00 | XMS_ITS ---
Author Organization [facility] Address [address] [place] [address] Care Team Providers Care Rat Farmer Name Role Phone Nae LILLY, Osiris Primary Care Provider Alban Gerard Jr REASON FOR VISIT screening Encounters Encounter Location Date Provider Diagnosis [facility] [place] Outpatient [address] [place] [phone] 01/07/2024 Alban Lopez Jr Colon cancer screening Z12.11 and Family history of colon cancer Z80.0 Assessments Encounter Date Diagnosis (ICD Code) Assessment Notes Treatment Notes Treatment Clinical Notes Section Notes 01/07/2024 Colon cancer screening (ICD-10 - Z12.11) 01/07/2024 Family history of colon cancer (ICD-10 - Z80.0) Plan Of Treatment No Information Progress Notes * PAULETTE SERRANO MDOB:1955 (69 yo F)Acc No.[id number]:01/07/2024 COLON WITH MAC Patient: Eloy HAHN PAULETTE Nam Provider: Melodie Lopez MD :1955 A ge:68 Y S ex:Female Date:01/07/2024 Address:[address] [place], [place] [phone] Pcp:Osiris Soni MD Subjective: * Chief Complaints: [...] 1 Generated for Ye yepez/Jignesh/Morenitasmitting on: 0 11/07/2024 02:38 PM EDT
[2024-11-07 13:43] VITALS: BP 140/80; PULSE 70; O2SAT 97; BMI 24.6
--- NOTE | 2024-11-07 13:43 | A.OFFVIS_ITS ---
Vital Signs 11/07/24 13:43 Height 5 ft 4 in Weight 143 lb 4.807 oz BMI 24.6 BP 140/80 H Blood Pressure Location Rt brachial Position Sitting Pulse 70 Pulse Source Pulse Oximeter Pulse Oximetry (%) 97 Oxygen Delivery Method Room Air Intake Visit Reasons: 3 months Intake Note: Patient presents for SLE. Patient states tat she is having left shoulder pain. Accompanied by: Daughter Allergies prednisone Adverse Reaction (Intermediate, Verified 11/07/24 13:48) Anxiety HPI HPI 3 months: Details: Pain in right MCP and 5th finger. Intermittent swelling in 5th finger. Chronic Dyspnea. She saw rubber worker who started her on a new inhaler a few weeks ago. She has not noted any change. PFTs reviewed with patient, confirming asthma. Denies pleurisy. She continues to have right knee pain. Hinged braces painful for patient. MS 1 hour. [facility] Medical History Eosinophilia Asthma Allergic rhinitis Dyspnea on exertion Restrictive lung disease Venous insufficiency Right carotid bruit Diverticulitis Bipolar 1 disorder GERD (gastroesophageal reflux disease) History of cervical cancer Irritable bowel syndrome with constipation Weak urinary stream Surgical menopause Osteopenia Essential hypertension Dyslipidemia Anxiety Surgical History History of cardiac cath Hx of esophagogastroduodenoscopy Hx of colonoscopy History of partial hysterectomy Family History Father Throat cancer Mother No problems noted. Brother No problems noted. Sister No problems noted. Sister No problems noted. Sister No problems noted. Sister Hyperlipidemia HTN (hypertension) Depression Myocardial infarction Daughter No problems noted. Daughter No problems noted. Daughter No problems noted. Daughter No problems noted. Paternal Aunt Rheumatoid arthritis Other Mental health disorder Substance use disorder Social History Housing: Apartment Alcohol intake: current Alcohol intake frequency: does not drink Alcohol type: wine Patient Tobacco Use Status: Former Tobacco user e-Cigarette/Vaping Use: Never Used Advance Directives Date on File: 01/15/23 service: No Current occupational status: unemployed Cognitive needs: No Hearing needs: No Vision needs: No Physical Exam Vital Signs: Last Vital Signs Pulse 70 11/07/24 13:43 BP 140/80 H 11/07/24 13:43 Pulse Ox 97 11/07/24 13:43 Oxygen Delivery Method Room Air 11/07/24 13:43 BMI result Body Mass Index 24.6 Const Other: General: Comfortable CVS: RRR Respiratory: clear to auscultation bilaterally. Good respiratory effort Skin: She has a few erythematous spots on her arms and neck. Hyperpigmented circular lesion left anterior lower banks. No skin tightening. MSK: Tender left 2nd to 3rd MCP and 5th MCP. Tender 5th PIP and DIPJ. [place] nodes present on 5th DIPJ. Tender left shoulder with limited full abduction. Pain with internal and external rotation of left shoulder. Right shoulder range of motion is normal. Normal range of motion of lower extremity. She has abnormal gait with switching to the right side. No MTP tenderness. Tender PIP knees and DIPJ knees of toes bilaterally. No dactylitis. Assessment & Plan Assessment & Plan (1) SLE (systemic lupus erythematosus): Comment: I am concerned that she has developed uncontrolled cutaneous disease presenting with erythematous spots throughout her extremities with spontaneous onset and resolution leaving hyperpigmented area. She also has telangiectasia and swallowing difficulties. Her labs reveal persistent SLE disease activity with high double-stranded DNA 52. She continues to have intermittent joint swelling involving her MCPs and toe pain. She has background of osteoarthritis. On exam she does not have synovitis but does have multiple small joint tenderness concerning for activity from inflammatory arthritis. To better manage cutaneous disease, inflammatory arthritis, and fatigue I recommending add on therapy with Benlysta. We discussed side effects, benefits and drug monitoring. She prefers IV infusion over subcutaneous injection due to fear of needles. Rheumatology history: dx 08/2023 (inflammatory arthritis, ? Skin rashes, telangiectasia + SCOTT, dsDNA, RF). HCQ 08/2023- Code(s): M32.9 - Systemic lupus erythematosus, unspecified Category: Medical Qualifiers: Systemic lupus erythematosus organ involvement: other Systemic lupus erythematosus type: unspecified Qualified Code(s): M32.19 - Other organ or system involvement in systemic lupus erythematosus Plan: Labs for disease and drug monitoring on high-risk medication ordered Continue hydroxychloroquine 300 mg daily. 10/14/2023. Requesting last eye exam report Information on Benlysta given to patient X-rays of bilateral hands, feet, right knee ordered I recommend that she contact Dermatology Dr. Gonzalez for follow up of cutaneous disease and consider skin biopsy as differential diagnosis also includes cutaneous manifestation of limited sclerosis (anticentromere antibody and Scl 70 negative). There may be topical options for patient Return to clinic in 3 months (2) Rash: Code(s): R21 - Rash and other nonspecific skin eruption Category: Medical Plan: See above (3) Dysphagia: Code(s): R13.10 - Dysphagia, unspecified Category: Medical Plan: Barium swallow ordered. She has an appointment next month. (4) Knee osteoarthritis: Comment: Constant pain Code(s): M17.9 - Osteoarthritis of knee, unspecified Category: Medical Qualifiers: Laterality: right Osteoarthritis type: primary Qualified Code(s): M17.11 - Unilateral primary osteoarthritis, right knee Plan: X-ray right knee ordered to determine if osteoarthritis is progressing. Reminded patient to have x-rays done. Right hinged knee brace prescribed but it does not fit well. I recommended that she go back to the medical supply store to have it refitted. Physical therapy ordered for lower extremity strengthening including gait training. Start PT. Continue Tylenol 500 mg daily After lab results are back, we will consider sending prescription for meloxicam 15 mg daily Return to clinic in 3 months or sooner if needed (5) Primary osteoarthritis of both hands: Comment: Uncontrolled pain Code(s): M19.041 - Primary osteoarthritis, right hand; M19.042 - Primary osteoarthritis, left hand Category: Medical Plan: After lab results are back, I will consider prescribing meloxicam 15 mg daily Continue Tylenol 500 mg daily Return to clinic in 3 months (6) Transaminitis: Comment: Unclear etiology. Downtrending. Code(s): R74.01 - Elevation of levels of liver transaminase levels Category: Medical Plan: Repeating liver function tests today She will continue to take 1 tablet of Tylenol 500 mg daily Return to clinic in 3 months Orders: Orders Complete Blood Count Auto Diff Today M32.9 - Systemic lupus erythematosus, unspecified Erythrocyte Sedimentation Rate Today M32.9 - Systemic lupus erythematosus, unspecified Alanine Aminotransferase Today M32.9 - Systemic lupus erythematosus, unspecified Complement C3 Today M32.9 - Systemic lupus erythematosus, unspecified Aspartate Amino Transferase Today M32.9 - Systemic lupus erythematosus, unspecified Complement C4 Today M32.9 - Systemic lupus erythematosus, unspecified DNA Double Stranded-Crithidia Today M32.9 - Systemic lupus erythematosus, unspecified C Reactive Protein Today M32.9 - Systemic lupus erythematosus, unspecified XR [place] 3V Today M32.19 - Other organ or system involvement in systemic lupus erythematosus XR shoulder LT min 2V Today M32.19 - Other organ or system involvement in systemic lupus erythematosus Protein Creatinine Ratio, Ur Today M32.9 - Systemic lupus erythematosus, unspecified Creatinine Today M32.9 - Systemic lupus erythematosus, unspecified UA ClnCatch+Micro w/rflx Cult Today M32.9 - Systemic lupus erythematosus, unspecified XR Hand [place] 2V Today M32.19 - Other organ or system involvement in systemic lupus erythematosus Coding Level of Care Code Est Pt Level 4 (15373) Complex EM visit Add On G2211 Diagnoses Systemic lupus erythematosus with other organ involvement, unspecified SLE type M32.19 Systemic lupus erythematosus organ involvement: other Systemic lupus erythematosus type: unspecified Rash R21 Dysphagia R13.10 Primary osteoarthritis of right knee M17.11 Laterality: right Osteoarthritis type: primary Primary osteoarthritis of both hands M19.041; M19.042 Transaminitis R74.01
--- OUTSIDE RECORDS SUMMARY | 2024-11-07 14:39 | XMS_ITS | Clinical Summary ---
Author Organization [facility] it Address [address] [place] [address] Care Team Providers Care Remote Sensing Engineer Name Role Phone Osiris Soni MD Primary [...] age to complete this topic Care Teams Remote Sensing Engineer Relationship Specialty Start Date End Date Osiris Soni MD [address] [place] [address] PCP - General Internal Medicine 06/06/11
--- OUTSIDE RECORDS SUMMARY | 2024-11-07 14:39 | XMS_ITS | Encounter Summary ---
Author Organization [facility] Address [address] [place] [address] Care Team Providers Care Wafer Fab Technician Name Role Phone Unavailable Primary Care Provider Unavailabl e Encounter Details Date Type Department Care Team (Latest Contact Info) Description 08/26/2020 Abstract [facility] CONVERSIONS Dental, Provider, DDS Social History Tobacco [...]
--- OUTSIDE RECORDS SUMMARY | 2024-11-07 14:39 | XMS_ITS | Clinical Summary ---
Author Organization [facility] Address [address] [place] [address] Care Team Providers Care Cut Out Marker Name Role Phone Unavailable Primary Care Provider [...] 4 Active Sodium Fluoride 1.1 % cream [place] teeth for 2 minutes, morning and night. Spit, do not rinse. Do not eat or drink anything for 30 minutes following use. 112 g 3 5 Active Active Problems Problem Noted Date Diagnosed Date Lupus (systemic lupus erythematosus) 07/05/2024 Encounters Date Type Department Care Team Description 10/03/2024 1:00 PM EDT Office Visit [facility] [address] [place] [address] Pancho Butcher, NILA Abrasion of teeth, localized (Primary Dx); Tooth abrasion; Inflammatory lesion of periapical tissue surrounding dental implant (CMS/HCC) 09/28/2024 1:30 PM EDT Office Visit [facility] [address] [place] [address] Erica Tejada, CHEVYS 09/01/2024 3:00 PM EDT Office Visit [facility] [address] [place] [address] Erica Tejada, DDS 08/23/2024 1:30 PM EDT Office Visit [facility] [address] [place] [address] Raffy Johnston DMD History of tooth extraction, [...] Relevant to Health Maintenance Insurance DENTAL - [facility]
--- OUTSIDE RECORDS SUMMARY | 2024-11-07 14:39 | XMS_ITS | Clinical Summary ---
Author Organization [facility] Address [address] [place], [place] [id number] Phone Care Team Providers Care Business Analyst Sales Operations Name Role Phone Osiris Soni MD Primary [...] ACO ACO ACO ACO ACO ACO ACO [facility] ACO Care Teams Business Analyst Sales Operations Relationship Specialty Start Date End Date Osiris Soni MD [address] [place] [address] PCP - General Internal Medicine 06/03/17 Additional Source Comments The information contained in this document represents components of the legal health record. It is not the complete legal health record.[facility]
--- OUTSIDE RECORDS SUMMARY | 2024-11-07 14:39 | XMS_ITS | Patient Health Record ---
Author Organization [facility] Address [address] [place] [address] Care Team Providers Care Commercial Lines Manager Name Role Phone Osiris Soni MD [...] ORALLY DAILY Oral for 90 Active Ipratropium [place] 0.03 % USE 2 SPRAYS EACH NOSTRILS [...] Problem Status W/U Status Risk Notes Problem 952375416 Colon cancer screening (Z12.11) Active confirmed Problem 552423646 Gastro-esophagea l reflux disease without esophagitis (K21.9) Active confirmed Problem 147570860 Generalized abdominal pain (R10.84) Active confirmed Problem 32263642 Other dysphagia (R13.19) Active confirmed Problem Dysphagia (23239366) Dysphagia (R13.10) Active confirmed Problem 70026689 Constipation, unspecified constipation type (K59.00) Active confirmed Problem Gastritis (3151245) Gastritis (K29.70) Active confirmed Problem 39990834 Diarrhea, unspecified type (R19.7) Active confirmed Problem Esophageal reflu x disease (K21.9) Active confirmed Problem 70720338 Gastric intestinal metaplasia (K31.A0) Active confirmed Vital Signs Temperature 98.0 degrees Fahrenheit 11/29/2023 Blood pressure diastolic 00 mm Hg 11/29/2023 Height 65.5 in 11/29/2023 Blood pressure systolic 000 mm Hg 11/29/2023 Weight 145 lbs 11/29/2023 BMI 23.76 kg/m2 11/29/2023 Encounters Encounter Location Date Provider Diagnosis [facility] [address], [place] [phone] 01/07/2024 Alban John Colon cancer screening Z12.11 and Family history of colon cancer Z80.0 [facility] [address] [place] [address] 11/29/2023 Alban Lopez Jr Gastro-esophageal reflux disease [...] Insured Coverage Start Date Coverage End Date [facility] [address] [address] [place] [address] [id number] MAGGIE PAULETTE Self - patient is the insured MEDICAID OF [facility] [address] [place] [address] [id number] PAULETTE SERRANO Self - patient is the insured Medical (General) History Medical History History ICD Code Hypertension bipolar disorder GERD, upper endoscopy 3, gastric intestinal metaplasia at one site, 2-3 year followup diverticulitis arthritis neuropathy Colonoscopy 01/31 benign cecal polyp, te n-year followup lupus Surgical History Surgery Date(Month/Year) hysterectomy 1985
--- OUTSIDE RECORDS SUMMARY | 2024-11-07 14:39 | XMS_ITS | Encounter Summary ---
Author Organization [facility] Address [address] [place] [address] Phone Care Team Providers Care Director Of Sustainable Design Name Role Phone Osiris Soni MD Primary Care Provider Encounter Details Date Type Department Care Team (Late st Contact Info) Description 06/03/2017 Ancillary [facility] [address] [place] [address] Donte Chris DO [address] [place] [address] Palpitations Social History Tobacco Use Types Packs/Day Years Used Date Smoking Tobacco: Never Assessed Comments Unknown Sex and Gender Information Value Date Recorded Sex Assigned at Not on file Legal Sex Female 10:23 AM EDT Gender Identity Not on file Sexual Orientation Not on file documented as of this encounter Plan of Treatment Not on file documented as of this encounter Results * Holter Monitor 24 Hours (06/03/2017 10:34 AM EDT) Anatomical Region Laterality Modality Heart Other Narrative 06/03/2017 1:20 PM EDT 24-hour monitor: No symptoms reported. Baseline rhythm is sinus with a minimum heart rate 53 maximum 108 average 72 bpm. Rare PACs present. Patient event occurred during sinus rhythm at 78 bpm. Impression: Normal 24-hour monitor. Patient event during sinus rhythm. No symptoms reported. Donte Chris DO [facility] ORDERABLE S Final Result documented in this encounter Visit Diagnoses Diagnosis Palpitations Palpitations documented in this encounter Care Teams Director Of Sustainable Design Relationship Specialty Start Date End Date Osiris Soni MD [facility] [place] [address] PCP - General Internal Medicine 06/03/17 documented as of this encounter Additional Source Comments The information contained in this document represents components of the legal health record. It is not the complete legal health record.[facility]
--- OUTSIDE RECORDS SUMMARY | 2024-11-07 14:39 | XMS_ITS | Encounter Summary ---
Author Organization [facility] Address [address] [place] [address] Care Team Providers Care Garbage Truck Driver Name Role Phone Unavailable Primary Care Provider Unavailabl e Encounter Details Date Type Department Care Team (Latest Contact Info) Description 03/30/2019 Abstract C CONVERSIONS Dental, Provider, DDS Social [...]
--- OUTSIDE RECORDS SUMMARY | 2024-11-07 14:39 | XMS_ITS ---
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 2023-02-23 No Data Available Ipratropium [place] 0.03 % Solution USE 2 SPRAYS EACH NOSTRILS 1-3 TIMES DAILY 15 MINUTES BEFORE MEALS 2023-05-06 No Data Available Diclofenac Sodium 1 % Gel 4 grams topica lly to affected area 4 times per day PRN 2023-07-09 No Data Available Loratadine 10 mg Tab TAKE 1 TABLET BY [facility] EVERY DAY 2023-07-27 No Data Available Escitalopram Oxalate 20 mg Tab No Data Available 06-10 No Data Available Triamcinolone Acetonide 0.1 % Oint No Data Available 2022-08-20 No Data Available Hydroxychloroquine Sulfate 2 00 mg Tab TAKE 1 AND 1/2 TABLETS BY MOUTH EVERY DAY 2023-08-19 No Data Available Terazosin 1 mg Cap TAKE 1 CAPSULE BY [facility] EVERYDAY AT BEDTIME 2023-12-14 No Data Available [...] stool max 4 times daily #30 capsule [id number] New Dicyclomine 20 mg Tab TAKE 1 TABLET BY MOUTH AC/HS for stomach pain/spasms #60 tablet JEe0uEv New Ondansetron 8 mg Tab Disintegrating 1 [...] sara-care- personal hygiene wipes- hand soap and facility maintenance manager as per prior order- box of medium gloves- to follow up with telephonic case manager and PCP for further monitoring [...] if symptoms have not improved. #2 tablet [id number] New Acetaminophen 500 mg Tab 2 tablets orally TID PRN fever/pain #30 tablet [id number] New Nitrofurantoin Macrocrystal 100 mg Cap Take 1 tablet PO twice daily for 5 days. #10 tablet LGs3sPt New Ondansetron 8 mg Tab Disintegrating 1 [...] they most likely to go back?Please call [facility] if you have a change in [...] or fried foods. F/I with GI. Contact [facility] 05/10 for any new, worsening or continued symptoms. Encounters Encounters Type Facility Date of Service Diagnosis/Co mplaint No Data Available [facility] Other specified disorders of nose and nasal sinuses No Data Available [facility] No Data Available [facility] No Data Available [facility] No Data Available [facility] No Data Available [facility] No Data Available [facility] New patient,40-59min; chronic exacerbation, 2 stable chronic or 1 acute illness add add modifier 95 for video (do not use for phone, instead use 37648-25) [facility] Rheumatoid arthritis, unspecifiedUlcerative colitis, unspecified, without complicationsAtopic dermatitis, unspecifiedRash and other nonspecific skin eruptionEssential (primary) hypertensionBipolar II disorderGastritis, unspecified, without bleedingDorsalgia, unspecifiedRetention of urine, unspecifiedRepeated fallsGastro-esophageal reflux disease without esophagitisOld myocardial infarction New patient,40-59min; chronic exacerbation, 2 stable chronic or 1 acute illness add add modifier 95 for video (do not use for phone, instead use 10380-31) [facility] [place] New patient,40-59min; chronic exacerbation, 2 stable chronic or 1 acute illness add add modifier 95 for video (do not use for phone, instead use 28275-91) [facility] [place] New patient,40-59min; chronic exacerbation, 2 stable chronic or 1 acute illness add add modifier 95 for video (do not use for phone, instead use 27960-62) [facility] [place] New patient,40-59min; chronic exacerbation, 2 stable chronic or 1 acute illness add add modifier 95 for video (do not use for phone, instead use 80103-29) [facility] [place] New patient,40-59min; chronic exacerbation, 2 stable chronic or 1 acute illness add add modifier 95 for video (do not use for phone, instead use 51763-82) [facility] [place] New patient,40-59min; chronic exacerbation, 2 stable chronic or 1 acute illness add add modifier 95 for video (do not use for phone, instead use 37938-00) [facility] [place] New patient,40-59min; chronic exacerbation, 2 stable chronic or 1 acute illness add add modifier 95 for video (do not use for phone, instead use 47419-81) [facility] [place] No Data Available [facility] Mononeuropathy, unspecified No Data Available [facility] Essential (primary) hypertensionBipolar II disorderOld myocardial infarctionRheumatoid arthritis, unspecifiedGastritis, unspecified, without bleedingUlcerative colitis, unspecified, without complicationsDorsalgia, unspecifiedAtopic dermatitis, unspecifiedRash and other nonspecific skin eruptionRetention of urine, unspecifiedRepeated fallsGastro-esophageal reflux disease without esophagitisNasal congestionMononeuropathy, unspecified No Data Available [facility] [place] No Data Available [facility] [place] No Data Available [facility] [place] No Data Available [facility] [place] No Data Available [facility] [place] No Data Available [facility] [place]2023 Ulcerative colitis, unspecif ied, without complicationsGastritis, unspecified, without bleedingGastro-esophageal reflux disease without esophagitisRetention of urine, unspecifiedUnspecified urinary incontinenceOveractive bladder No Data Available [facility] [place]2023 Acute candidiasis of vulva a nd vaginaEncntr for general adult medical exam w/o abnormal findingsEssential (primary) hypertension No Data Available [facility] [place]20[place] No Data Available [facility] [place] No Data Available [facility] [place] No Data Available [facility] [place] No Data Available [facility] [place]2023 Rheumatoid arthritis, unspec ified No Data Available [facility] [place]2023 Rheumatoid arthritis, unspec ified No Data Available [facility] [place]2023 No Data Available [facility] [place]2023 No Data Available [facility] [place]2023 No Data Available [facility] [place]2023 Rheumatoid arthritis, unspec ified No Data Available [facility] [place]23 No Data Available [facility] [place] Estab. patient 30-39min; chronic exacerbation, 2 stable chronic or 1 acute illness add add modifier 95 for video, (do not use for phone, instead use 14533-27) [facility] [place] Essential (primary) hypertensionBipolar II disorderOld myocardial [...] (do not use for phone, instead use 89304-72) [facility] [place] Estab. patient 30-39min; chronic exacerbation, 2 stable chronic or 1 acute illness add add modifier 95 for video, (do not use for phone, instead use 44645-30) [facility] [place]20[place] Estab. patient 30-39min; chronic exacerbation, 2 stable chronic or 1 acute illness add add modifier 95 for video, (do not use for phone, instead use 75820-62) [facility] [place]20[place] Estab. patient 30-39min; chronic exacerbation, 2 stable chronic or 1 acute illness add add modifier 95 for video, (do not use for phone, instead use 93389-70) [facility] [place]20[place] Estab. patient 30-39min; chronic exacerbation, 2 stable chronic or 1 acute illness add add modifier 95 for video, (do not use for phone, instead use 75631-72) [facility] [place]20[place] Estab. patient 30-39min; chronic exacerbation, 2 stable chronic or 1 acute illness add add modifier 95 for video, (do not use for phone, instead use 63842-23) [facility] [place]20[place] Estab. patient 30-39min; chronic exacerbation, 2 stable chronic or 1 acute illness add add modifier 95 for video, (do not use for phone, instead use 81908-51) [facility] [place] 08[place]20[place] Estab. patient 30-39min; chronic exacerbation, 2 stable chronic or 1 acute illness add add modifier 95 for video, (do not use for phone, instead use 44143-51) [facility] [place]20[place] Estab. patient 30-39min; chronic exacerbation, 2 stable chronic or 1 acute illness add add modifier 95 for video, (do not use for phone, instead use 48766-93) [facility] [place]20[place] Estab. patient 10-29min; 1 minor problem; add add modifier 95 for video, modifier 93 for phone [facility] [place] 04[place]/2024 Chronic sinusitis, unspecifi ed Estab. patient 10-29min; 1 minor problem; add add modifier 95 for video, modifier 93 for phone [facility] [place]20[place] Estab. patient 10-29min; 1 minor problem; add add modifier 95 for video, modifier 93 for phone [facility] [place] Estab. patient 10-29min; 1 minor problem; add add modifier 95 for video, modifier 93 for phone [facility] [place]20[place] Estab. patient 10-29min; 1 minor problem; add add modifier 95 for video, modifier 93 for phone [facility] [place] 04[place]/2024 Essential (primary) hypertensionBipolar II [...] 95 for video, modifier 93 for phone [facility] [place] Estab. patient 10-29min; [...] facilities and other health care Estab. patient 10-29min; 1 minor problem; add add modifier 95 for video, modifier 93 for phone [facility] [place]2024 Retention of urine, unspecifiedUnspecified urinary incontinenceOveractive bladderUrinary tract infection, site not specified Estab. patient 10-29min; 1 minor problem; add add modifier 95 for video, modifier 93 for phone [facility] [place] Estab. 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 Phone# No Data Available [id number] 2022-10-20 No Data Available No Data Available [...] (do not use for phone, instead use 86045-15) [id number] 2022-10-15 No Data Available No Data Availa [...] No Data Avail able No Data Available [id number] 2023-01-05 No Data Available No Data Available No Data Available [id number] 2023-01-16 No Data Available No Data Available [...] No Data Anastacia ilable No Data Available [id number] 2023-02-03 No Data Available No Data Available No Data Available [id number] 2023-02-23 No Data Available No Data Available SBP 130-139 (3075F) 3075F 2023-02-23 No Data Availabl e No Data Available DBP 80-89 (3079F) 3079F 2023-02-23 No Data Available No Data Available Functional Status Assessed (1170F) 1170F 2023-02-23 No Data Available No Data Avail able Pain Assessment - NO pain present (1126F) 1126F 2023-02-23 No Data Available No Data A vailable No Data Available [id number] 2023-06-11 No Data Available No Data Available No Data Available [id number] 2023-07-09 No Data Available No Data Available Medication List Documented (1159F) 1159F 2023-07-09 No Data Available No Data Anastacia ilable SBP >= 140 3077F 2023-07-09 No Data Available No Data Available DBP <80 (3078F) 3078F 2023-07-09 No Data Available No Data Available No Data Available [id number] 2023-07-13 No Data Available No Data Available [...] (do not use for phone, instead use 01062-43) 13871 2023-08-30 No Data Available No Data Availa [...] 95 for video, modifier 93 for phone [id number] 2024-04-12 No Data Available No Data Availa ble No Data Available [id number] 2024-04-12 No Data Available No Data Available SBP >= 140 3077F 2024-04-12 No Data Available No Data Available DBP <80 (3078F) 3078F 2024-04-12 No Data Available No Data Available Estab. patient 10-29min; 1 minor problem; add add modifier 95 for video, modifier 93 for phone [id number] 2024-04-14 No Data Available No Data Availa [...] 95 for video, modifier 93 for phone [id number] 2024-05-09 No Data Available No Data Availa ble Estab. patient 10-29min; 1 minor problem; add add modifier 95 for video, modifier 93 for phone [id number] 2024-07-19 No Data Available No Data Availa ble SBP < 130 (3074F) 3074F 2024-07-19 No Data Available No Data Available DBP <80 (3078F) 3078F 2024-07-19 No Data Available No Data Available Estab. patient 10-29min; 1 minor problem; add add modifier 95 for video, modifier 93 for phone [id number] 2024-09-05 No Data Available No Data Availa ble SBP >= 140 3077F 2024-09-05 No Data Available No Data Available DBP <80 (3078F) 3078F 2024-09-05 No Data Available No Data Available Estab. patient 10-29min; 1 minor problem; add add modifier 95 for video, modifier 93 for phone [id number] 2024-09-08 No Data Available No Data Availa ble Estab. patient 10-29min; 1 minor problem; add add modifier 95 for video, modifier 93 for phone [id number] 2024-09-09 No Data Available No Data Availa [...] Follow up with Psychiatry for provider assignment10/15/22: [facility] done in 09/2022. No interventions.1. F/u with [...] stool max 4 times daily #30 capsule GPn1wMg New Dicyclomine 20 mg Tab TAKE 1 TABLET BY MOUTH AC/HS for stomach pain/spasms #60 tablet ULx4rYp New Ondansetron 8 mg Tab Disintegrating 1 [...] sara-care- personal hygiene wipes- hand soap and facility maintenance manager as per prior order- box of medium gloves- to follow up with telephonic case manager and PCP for further monitoring and management hx: 10/15/22: Reports urinary retention and managed with Flomax1. Dz management discussed2. Continue to follow up with PCP 2023-02-23 11:16:05 New Diflucan 150 mg Tab Take 1 tablet PO. May take 1 tablet 72 hours later if symptoms have not improved. #2 tablet RDj5Stk Miconazole Nitrate 2 % Crm Vaginal Apply to affected area daily x 7 days. #1 applicator [id number] (patient, parent, or guardian); 11-20 minutes of [...] Documented (1125F)Continue to see PCP. Follow-up with [facility] as needed for any acute or [...] for and report early any s/s of sptzlepgh60/22/23- continue plan of care and conservative measures eRx New Loperamide 2 mg Cap 2 tablets after first loose stool, then take 1 tablet after each loose stool max 4 times daily #30 capsule VRf4eHh New Dicyclomine 20 mg Tab TAKE 1 TABLET BY MOUTH AC/HS for stomach pain/spasms #60 tablet QHl9hMq New Ondansetron 8 mg Tab Disintegrating 1 [...] sara-care- personal hygiene wipes- hand soap and facility maintenance manager as per prior order- box of medium gloves- to follow up with telephonic case manager and PCP for further monitoring [...] they most likely to go back?Please call [facility] if you have a change in condition, Blood pressure > 170/90Acute illness, change in condition or medication and with any questions about your healthFall, any unusual symptoms or have any medical questions! 2024-04-11 17:04:12 Televideo 10-29min; 1 minor problem; add add modifier 95 for video, modifier 93 for phoneContinue to see PCP. Follow-up with [facility] as needed for any acute or [...] for phoneContinue to see PCP. Follow-up with [facility] as needed for any acute or [...] Follow up with Psychiatry for provider assignment10/15/22: [facility] done in 09/2022. No interventions.1. F/u with [...] for and report early any s/s of roxieqbdb47/22/23- continue plan of care and conservative measures eRx New Loperamide 2 mg Cap 2 tablets after first loose stool, then take 1 tablet after each loose stool max 4 times daily #30 capsule FLm8jYo New Dicyclomine 20 mg Tab TAKE 1 TABLET BY MOUTH AC/HS for stomach pain/spasms #60 tablet LKn9wMx New Ondansetron 8 mg Tab Disintegrating 1 [...] sara-care- personal hygiene wipes- hand soap and facility maintenance manager as per prior order- box of medium gloves- to follow up with telephonic case manager and PCP for further monitoring and management hx: 8/3/23: Reports urinary retention and managed with Flomax1. [...] they most likely to go back?Please call [facility] if you have a change [...] for phoneContinue to see PCP. Follow-up with [facility] as needed for any acute or disease education needs that may arise 05/10.Diflucan 150 mg Tab Take 1 tablet PO. May take 1 tablet 72 hours later if symptoms have not improved. #2 tablet [id number] underwearNotify for persistant symptoms. 2024-07-19 09:11:42 Televideo 10-29min; 1 minor problem; add add modifier 95 for video, modifier 93 for phoneContinue to see PCP. Follow-up with [facility] as needed for any acute or disease education needs that may arise 05/10.Amoxicillin-Pot Clavulanate 875/125 mg Tab Take 1 tablet PO twice daily for 7 days #14 tablet PYg2Ikhagr to tolerate prednisoneEnc use of alb inhaler Q 4 hrs prnContinue flonase and antihistamine. Tyelnol prnRest and hydrateNotify for worsening symptoms. 2024-09-05 09:02:34 Televideo 10-29min; 1 minor problem; add add modifier 95 for video, modifier 93 for phoneContinue to see PCP. Follow-up with [facility] as needed for any acute or disease education needs that may arise 05/10.09/05/24: Rx: Dicyclomine 20 mg Tab-TAKE 1 TABLET BY MOUTH BEFORE MEALS AND AT BEDTIME FOR STOMACH PAIN/SPASMS. Recommend bland diet-BRAT diet-Bananas, rice, applesauce, toast. Avoid coffee, alcohol, dairy products, fruit, vegetables, red meat, spicy or fried foods. F/I with GI. Contact [facility] 05/10 for any new, worsening or continued symptoms. 2024-09-08 13:43:08 Estab. patient 10-29 min; 1 minor problem; add add modifier 95 for video, modifier 93 for phoneContinue to see PCP. Follow-up with [facility] as needed for any acute or disease education needs that may arise 05/10.09/05/24: Rx: Dicyclomine 20 mg Tab-TAKE 1 TABLET BY MOUTH BEFORE MEALS AND AT BEDTIME FOR STOMACH PAIN/SPASMS. Recommend bland diet-BRAT diet-Bananas, rice, applesauce, toast. Avoid coffee, alcohol, dairy products, fruit, vegetables, red meat, spicy or fried foods. F/I with GI. Contact [facility] 05/10 for any new, worsening or continued symptoms.Monthly follow up calls with ptCONTINGENCY PLANWhy was the member in the hospital or ER most recently? Why are they most likely to go back?Please call [facility] if you have a change in [...] sara-care- personal hygiene wipes- hand soap and facility maintenance manager as per prior order- box of medium gloves- to follow up with telephonic case manager and PCP for further monitoring [...] if symptoms have not improved. #2 tablet TAy2jCw New Acetaminophen 500 mg Tab 2 tablets orally TID PRN fever/pain #30 tablet HGg1rLp New Nitrofurantoin Macrocrystal 100 mg Cap Take 1 tablet PO twice daily for 5 days. #10 tablet EQp8vPc New Ondansetron 8 mg Tab Disintegrating 1 [...] improvement Health Concerns Date Concern 2024-09-09 Patient/Guardian agr eed to visit via telehealth.Visit completed via: [ [...]
== END 2024-11-07 14:41 | disposition home or self-care (01) ==
LOC: HO.RHES 13:39
PROVIDERS: PCP Internal Medicine; Visit Provider Internal Medicine Rheumatology
DX: M32.19 Other organ or system involvement in systemic lupus erythematosus (principal); R21 Rash and other nonspecific skin eruption; R13.10 Dysphagia, unspecified; M17.11 Unilateral primary osteoarthritis, right knee; M19.041 Primary osteoarthritis, right hand; M19.042 Primary osteoarthritis, left hand; R74.01 Elevation of levels of liver transaminase levels
CPT/HCPCS: 99214; G2211

== ENCOUNTER → 2024-11-07 16:33 | Outpatient (BNV) | payer OTHER, SELFPAY | PROVIDERS: PCP Internal Medicine; Visit Provider Radiology Diagnostic Radiology | DX: M19.012 Primary osteoarthritis, left shoulder (principal); M19.041 Primary osteoarthritis, right hand; M19.042 Primary osteoarthritis, left hand; M19.071 Primary osteoarthritis, right ankle and foot; M19.072 Primary osteoarthritis, left ankle and foot; M77.52 Other enthesopathy of left foot and ankle; M77.51 Other enthesopathy of right foot and ankle | CPT/HCPCS: 73030; 73110; 73130; 73630 ==

== ENCOUNTER 2024-11-17 09:29 | Outpatient (AMB) | payer OTHER, SELFPAY ==
--- OUTSIDE RECORDS SUMMARY | 2024-01-07 07:00 | XMS_ITS ---
Author Organization [facility] Address [address] [place] [address] Care Team Providers Care Cattle Sprayer Name Role Phone Nae LILLY, Osiris Primary Care Provider Alban Gerard Jr REASON FOR VISIT screening Encounters Encounter Location Date Provider Diagnosis [facility] Outpatient [address] [place] [address] [id number] 01/07/2024 Alban Lopez Jr Colon cancer screening Z12.11 and Family history of colon cancer Z80.0 Assessments Encounter Date Diagnosis (ICD Code) Assessment Notes Treatment Notes Treatment Clinical Notes Section Notes 01/07/2024 Colon cancer screening (ICD-10 - Z12.11) 01/07/2024 Family history of colon cancer (ICD-10 - Z80.0) Plan Of Treatment No Information Progress Notes * PAULETTE SERRANO MDOB:1955 (69 yo F)Acc No.[id number]:01/07/2024 COLON WITH MAC Patient: Eloy HAHN PAULETTE Nam Provider: Melodie Lopez MD :1955 A ge:68 Y S ex:Female Date:01/07/2024 Address:[address] [place], [place] [phone] Pcp:Osiris Soni MD Subjective: * Chief Complaints: * 1 . Screening. * Medical History: Objective: * Vitals: Assessment: * Assessment: 1. C olon cancer screening - Z12.11 (Primary) 2 . F amily history of colon cancer - Z80.0 Plan: * Treatment: * Procedure Codes: 4 5378 DIAGNOSTIC COLONOSCOPY, 0529F INTRVL 3+YRS PTS CLNSCP DOCD, 0528F RCMND FLW-UP 10 YRS DOCD, Modifiers: 1P * * The named appointment provid er may or may not be the originator of this progress note, and it is not deemed complete until electronically signed by the appointment provider. Sign off status: Pending * Provider: Melodie Lopez MD Date: 1 Generated for Ye yepez/Jignesh/Morenitasmitting on: 0 11/17/2024 10:09 AM EDT
--- NOTE | 2024-11-17 09:23 | MHC.PC.OV ---
Intake Visit Reasons: ultrasound for liver, abnormal labs Allergies prednisone Adverse Reaction (Intermediate, Verified 11/17/24 09:41) Anxiety Medication List - Last Reconciled 11/17/24 by Osiris Soni MD albuterol sulfate 90 mcg/actuation 1 inh inhalation QID PRN 30 days bupropion HCl 1 tab PO DAILY diclofenac sodium 1% 2 grams topical BID PRN dicyclomine 20 mg PO QID escitalopram oxalate 10 mg PO DAILY@1300 PRN estradiol 0.01%(0.1mg/gram) vaginally 3 times a week; pea sized amount to urethra 3 times a week 30 days fluticasone furoate-vilanterol 100-25 mcg/dose (Breo Ellipta) 1 inh inhalation DAILY 30 days gabapentin 1 tab PO DAILY geriatric tunrxjis-asyx-urou (Centravites 50 Plus tablet) 1 tab PO DAILY hydroxychloroquine 300 mg (1.5 x 200 mg) PO DAILY 90 days hyoscyamine sulfate 0.125 mg PO BID PRN leg brace (Knee Support Brace) As directed Hinged knee brace right Dx: osteoarthritis lorazepam 0.5 mg PO DAILY PRN melatonin 10 mg PO BEDTIME PRN nystatin 1 appl topical DAILY ondansetron 8 mg PO TID terazosin 1 mg PO BEDTIME 30 days Tobacco use date assessed: 11/17/24 Dental Screening Dental Screen Date: 09/13/24 HPI ultrasound for liver, abnormal labs HPI Details - 69-year-old female with a history systemic lupus erythematosus, presenting with elevated liver enzymes . She has had fluctuating levels of liver enzymes over the last several years, with a previous CT scan in 2022 showing no liver or gallbladder abnormalities. - The patient has had intermittent right-sided abdominal pain, though no current pain was reported - She has Systemic lupus erythematosus , with inadequate response to previous medications, now planning to have monthly Benlista infusions PENDING SALE TO [facility] Medical History (Updated 11/18/24 @ 22:41 by Osiris Soni MD) Elevation of levels of liver transaminase levels Eosinophilia Asthma Allergic rhinitis Dyspnea on exertion Restrictive lung disease Venous insufficiency Right carotid bruit Diverticulitis Bipolar 1 disorder GERD (gastroesophageal reflux disease) History of cervical cancer Irritable bowel syndrome with constipation Weak urinary stream Surgical menopause Osteopenia Essential hypertension Dyslipidemia Anxiety Surgical History History of cardiac cath Hx of esophagogastroduodenoscopy Hx of colonoscopy History of partial hysterectomy Family History Father Throat cancer Mother No problems noted. Brother No problems noted. Sister No problems noted. Sister No problems noted. Sister No problems noted. Sister Hyperlipidemia HTN (hypertension) Depression Myocardial infarction Daughter No problems noted. Daughter No problems noted. Daughter No problems noted. Daughter No problems noted. Paternal Aunt Rheumatoid arthritis Other Mental health disorder Substance use disorder Social History Housing: Apartment Alcohol intake: current Alcohol intake frequency: does not drink Alcohol type: wine Patient Tobacco Use Status: Former Tobacco user e-Cigarette/Vaping Use: Never Used Advance Directives Date on File: 01/15/23 service: No Current occupational status: unemployed Cognitive needs: No Hearing needs: No Vision needs: No Questionnaire Thrive Questionnaire Date Thrive assessed: 05/15/24 I am a: Patient What is your living situation today?: I have a steady place to live Within the past 12 months, did the food you bought not last and you didn't have the money to get more?: Never true Within the past 12 months, did you worry whether your food would run out before you got money to buy more?: Never true Do you have trouble paying for medicines?: No Do you have trouble getting transportation to medical appointments?: Yes Do you have trouble paying your heating and electricity bill?: No Do you have trouble taking care of your child, family member or friend?: No Do you have trouble with day-to-day activities such as bathing, preparing meals, shopping, managing finances, etc.?: No Are you currently unemployed and looking for a job?: No Are you interested in more education?: No Please select the resources that you would like help with: None Currently or been in a relationship where the following occur: No concerns reported THRIVE Score: 1 AUDIT C Alcohol Use Questionnaire (AUDIT-C) 2. How many drinks containing alcohol do you have on a typical day when you are drinking?: 1 or 2 3. How often do you have six or more drinks on one occasion?: Never Total Score: 0 GEETA-7 AMB Questionnaire GEETA-7 Date GEETA - 7 assessed: 08/17/23 Source: Developed by DrsWendy Leavitt, Ellie Kirkpatrick, Ponce Magdaleno and colleagues, with an educational nathanael from [employer] Review of Systems Const All systems reviewed & are unremarkable except as noted in HPI and below Eyes Reports no additional complaints ENT Reports nasal congestion (FREQUENT) and Reports nasal obstruction (PARTIAL.) Card Denies chest pain, Denies irregular heart rhythm and Denies leg edema Resp Reports no additional complaints GI Reports no additional complaints Reports no additional complaints Musc Reports arthralgias and Reports joint swelling Skin/Breast Reports dry skin and Denies rash Neuro Reports no additional complaints Psych Reports anxiety and Reports depression Endo Reports no additional complaints Albino/Lymph Reports no additional complaints Physical exam (Primary Care) Tobacco/Smoking Status: Tobacco use Status Tobacco use date assessed 11/17/24 11/17/24 09:28 Patient Tobacco Use Status Former Tobacco user 11/17/24 09:28 e-Cigarette/Vaping Use Never Used 11/17/24 09:28 Thrive Assessment: Date of Thrive Assessment Date Thrive assessed 05/15/24 11/17/24 09:28 Currently or been in a relationship where the following occur: No concerns reported Telehealth Telehealth Telehealth Platform: [facility] Location of provider rendering services: practice address Location of patient: address on file Patient Identification confirmed using: Name, : Yes Telehealth method: video Patient verbally consented to treatment: Yes Patient verbally consented to billing insurance company: Yes Patient informed of any privacy concerns related to visit: Yes Minutes spent on Phone/Video with Pt.: 15 Coding Level of Care Code Tele Est Pt Level 4 (43449) Diagnoses Elevation of levels of liver transaminase levels R74.01 Assessment & Plan Assessment & Plan (1) Elevation of levels of liver transaminase levels: Code(s): R74.01 - Elevation of levels of liver transaminase levels Category: Medical Plan: liver ultrasound and a repeat hepatitis B panel were ordered. She is planning to start monthly Benlysta infusions of her SLE, currently followed by rheumatology clinic at [facility] [place] Orders: Orders US abdomen complete 11/17/24 R74.01 - Elevation of levels of liver transaminase levels Hepatitis B Profile 11/17/24 R74.01 - Elevation of levels of liver transaminase levels
--- OUTSIDE RECORDS SUMMARY | 2024-11-17 10:09 | XMS_ITS | Patient Health Record ---
Author Organization [facility] Address [address] [place] [address] Care Team Providers Care College Service Officer Name Role Phone Osiris Soni MD Primary [...] ORALLY DAILY Oral for 90 Active Ipratropium Granger 0.03 % USE 2 SPRAYS EACH NOSTRILS [...] Problem Status W/U Status Risk Notes Problem 293456399 Colon cancer screening (Z12.11) Active confirmed Problem 861136389 Gastro-esophage al reflux disease without esophagitis (K21.9) Active confirmed Problem 395366347 Generalized abdominal pain (R10.84) Active confirmed Problem 04599252 Other dysphagia (R13.19) Active confirmed Problem Dysphagia (37483752) Dysphagia (R13.10) Active confirmed Problem 59573691 Constipation, unspecified constipation type (K59.00) Active confirmed Problem Gastritis (9791662) Gastritis (K29.70) Active confirmed Problem 14855926 Diarrhea, unspecified type (R19.7) Active confirmed Problem Gastroesophageal reflux disease (998593090) Esophageal reflux disease (K21.9) Active confirmed Problem 50260820 Gastric intestinal metaplasia (K31.A0) Active confirmed Vital Signs Temperature 98.0 degrees Fahrenheit 11/29/2023 Blood pressure diastolic 00 mm Hg 11/29/2023 Height 65.5 in 11/29/2023 Blood pressure systolic 000 mm Hg 11/29/2023 Weight 145 lbs 11/29/2023 BMI 23.76 kg/m2 11/29/2023 Encounters Encounter Location Date Provider Diagnosis [facility] [address] [place], [place] [id number] 01/07/2024 Alban Lopez Jr Colon cancer screening Z12.11 and Family history of colon cancer Z80.0 [facility] [address] [place] [address] 11/29/2023 Alban John Toscano Gastro-esophageal reflux disease [...] Insured Coverage Start Date Coverage End Date [facility] [address] [address] [place] [address] [id number] MAGGIE PAULETTE Self - patient is the insured MEDICAID OF [facility] [address] [place] [address] [id number] PAULETTE SERRANO Self - patient is the insured Medical (General) History Medical History History ICD Code Hypertension bipolar disorder GERD, upper endoscopy 3, gastric intestinal metaplasia at one site, 2-3 year followup diverticulitis arthritis neuropathy Colonoscopy 01/31 benign cecal polyp, te n-year followup lupus Surgical History Surgery Date(Month/Year) hysterectomy 1985
--- OUTSIDE RECORDS SUMMARY | 2024-11-17 10:10 | XMS_ITS | Clinical Summary ---
Author Organization [facility] Address [address] [place] [address] Care Team Providers Care Community Relations Manager Name Role Phone Osiris Soni MD [...] 2004 Zoster Vaccines (1 of 2) 2004 Depression Screening 03/15/2024 COVID-19 Vaccine (1 - 2023-2 5 season) 2024 Influenza Vaccine (#1) 2024 RSV Immunization Adult [...] age to complete this topic Care Teams Community Relations Manager Relationship Specialty Start Date End Date Osiris Soni MD [address] [place] [address] PCP - General Internal Medicine 06/06/11
--- OUTSIDE RECORDS SUMMARY | 2024-11-17 10:10 | XMS_ITS | Encounter Summary ---
Author Organization [facility] [facility] Address [address] [place] [address] Care Team Providers Care Rivet Sticker Name Role Phone Unavailable Primary Care Provider Unavailabl e Encounter Details Date Type Department Care Team (Latest Contact Info) Description 03/30/2019 Abstract [facility] CONVERSIONS Dental, Provider, DDS Social [...] Care Team (Late st Contact Info) Description 12/04/2024 1:00 PM EDT Office Visit [facility] ADULT DENTAL [address] [place] [address] documented as of this encounter Visit Diagnoses Not on filedocumented in this encounter
--- OUTSIDE RECORDS SUMMARY | 2024-11-17 10:10 | XMS_ITS | Clinical Summary ---
Author Organization [facility] Address [address] [place], [place] [id number] Phone Care Team Providers Care Heavy Duty Diesel Mechanic Name Role Phone Osiris Soni MD Primary [...] ACO ACO ACO ACO ACO ACO [facility]CO [facility] ACO Care Teams Heavy Duty Diesel Mechanic Relationship Specialty Start Date End Date Osiris Soni MD [address] [place] [address] PCP - General Internal Medicine 06/03/17 Additional Source Comments The information contained in this document represents components of the legal health record. It is not the complete legal health record.[facility]
--- OUTSIDE RECORDS SUMMARY | 2024-11-17 10:10 | XMS_ITS ---
Author Name Jenae Larson NP Address [address] [place] [address] Phone [phone] Organization [facility] Care Team Providers Care Bin Filler Name Role Phone Jenae Larson Unavailable [phone] Alban Lopez Unavailable [phone] Reason for Referral Not Available Allergies, adverse [...] 7 days. 2023-02-23 No Data Available Ipratropium [place] 0.03 % Solution USE 2 SPRAYS EACH NOSTRILS 1-3 TIMES DAILY 15 MINUTES BEFORE MEALS 2023-05-06 No Data Available Diclofenac Sodium 1 % Gel 4 grams topica lly to affected area 4 times per day PRN 2023-07-09 No Data Available Loratadine 10 mg Tab TAKE 1 TABLET BY [facility] EVERY DAY 2023-07-27 No Data Available Escitalopram Oxalate 20 mg Tab No Data Available 06-10 No Data Available Triamcinolone Acetonide 0.1 % Oint No Data Available 2022-08-20 No Data Available Hydroxychloroquine Sulfate 2 00 mg Tab TAKE 1 AND 1/2 TABLETS BY MOUTH EVERY DAY 2023-08-19 No Data Available Terazosin 1 mg Cap TAKE 1 CAPSULE BY [facility] EVERYDAY AT BEDTIME 2023-12-14 No [...] have not improved. 2024-09-08 No Data Available Bethanechol Chloride 50 mg Tab TAKE 1 TA BLET (50 MG) ORALLY 2 TIMES A DAY FOR 30 DAYS 2024-10-12 No Data Available Breo Ellipta 100-25 MCG/ACT Aerosol Powder Breath Activated INHALE 1 PUFF INTO THE LUNGS DAILY FOR ASTHMA FOR 30 DAYS 2024-10-23 No Data Available Nystatin 333559 UNIT/GM Crm 1 applicatio n topically to affected area 3 times per day 2024-11-15 No Data Available Problem List Problem Status [...] stool max 4 times daily #30 capsule [id number] New Dicyclomine 20 mg Tab TAKE 1 TABLET BY MOUTH AC/HS for stomach pain/spasms #60 tablet [id number] New Ondansetron 8 mg Tab Disintegrating 1 [...] personal hygiene wipes- hand soap and commercial 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 #2 tablet MHb1sYu New Acetaminophen 500 mg Tab 2 tablets orally TID PRN fever/pain #30 tablet IXw3iCk New Nitrofurantoin Macrocrystal 100 mg Cap Take 1 tablet PO twice daily for 5 days. #10 tablet MEd8cEu New Ondansetron 8 mg Tab Disintegrating 1 [...] they most likely to go back?Please call [facility] if you have a change in condition, [...] appt with ENT 04/18/24F/U with [facility] 04/14/23 Bipolar II disorder Active [...] or fried foods. F/I with GI. Contact [facility] 05/10 for any new, worsening or continued symptoms. Encounters Encounters Type Facility Date of Service Diagnosis/Co mplaint No Data Available [facility] Other specified disorders of nose and nasal sinuses No Data Available [facility] Data Available [facility] Data [place] [facility] No Data Available [facility] No Data Available [facility] Data Available [facility] New patient,40-59min; chronic exacerbation, 2 stable chronic or 1 acute illness add add modifier 95 for video (do not use for phone, instead use 70765-82) [facility]2022 Rheumatoid arthritis, unspecifiedUlcerative colitis, unspecified, without complicationsAtopic dermatitis, unspecifiedRash and other nonspecific skin eruptionEssential (primary) hypertensionBipolar II disorderGastritis, unspecified, without bleedingDorsalgia, unspecifiedRetention of urine, unspecifiedRepeated fallsGastro-esophageal reflux disease without esophagitisOld myocardial infarction New patient,40-59min; chronic exacerbation, 2 stable chronic or 1 acute illness add add modifier 95 for video (do not use for phone, instead use 75834-26) [facility] New patient,40-59min; chronic exacerbation, 2 stable chronic or 1 acute illness add add modifier 95 for video (do not use for phone, instead use 34214-33) [facility] New patient,40-59min; chronic exacerbation, 2 stable chronic or 1 acute illness add add modifier 95 for video (do not use for phone, instead use 61308-15) [facility] New patient,40-59min; chronic exacerbation, 2 stable chronic or 1 acute illness add add modifier 95 for video (do not use for phone, instead use 81905-28) [facility] New patient,40-59min; chronic exacerbation, 2 stable chronic or 1 acute illness add add modifier 95 for video (do not use for phone, instead use 05425-42) [facility] New patient,40-59min; chronic exacerbation, 2 stable chronic or 1 acute illness add add modifier 95 for video (do not use for phone, instead use 69940-32) [facility] New patient,40-59min; chronic exacerbation, 2 stable chronic or 1 acute illness add add modifier 95 for video (do not use for phone, instead use 59452-61) [facility] No Data Available [facility]23 Mononeuropathy, unspecified No Data Available [facility] [place] Essential (primary) hypertensionBipolar II disorderOld myocardial infarctionRheumatoid arthritis, unspecifiedGastritis, unspecified, without bleedingUlcerative colitis, unspecified, without complicationsDorsalgia, unspecifiedAtopic dermatitis, unspecifiedRash and other nonspecific skin eruptionRetention of urine, unspecifiedRepeated fallsGastro-esophageal reflux disease without esophagitisNasal congestionMononeuropathy, unspecified No Data Available [facility] [place] No Data Available [facility] [place] No Data Available [facility] [place] No Data Available [facility] [place] No Data Available [facility] [place] No Data Available [facility] 02[place]2023 Ulcerative colitis, unspecif ied, without complicationsGastritis, unspecified, without bleedingGastro-esophageal reflux disease without esophagitisRetention of urine, unspecifiedUnspecified urinary incontinenceOveractive bladder No Data Available [facility] [place] Acute candidiasis of vulva a nd vaginaEncntr for general adult medical exam w/o abnormal findingsEssential (primary) hypertension No Data Available [facility] [place] No Data Available [facility] [place] No Data Available [facility] [place] No Data Available [facility] [place] No Data Available [facility]2023 Rheumatoid arthritis, unspec ified No Data Available [facility] [place]23 Rheumatoid arthritis, unspec ified No Data Available [facility] [place] No Data Available [facility] [place] No Data Available [facility]23 No Data Available [facility]2023 Rheumatoid arthritis, unspec ified No Data Available [facility] 07[place]2023 No Data Available [facility] Estab. patient 30-39min; chronic exacerbation, 2 stable chronic or 1 acute illness add add modifier 95 for video, (do not use for phone, instead use 20153-69) [facility]2023 Essential (primary) hypertensionBipolar II disorderOld myocardial [...] (do not use for phone, instead use 35077-45) [facility] Estab. patient 30-39min; chronic exacerbation, 2 stable chronic or 1 acute illness add add modifier 95 for video, (do not use for phone, instead use 59016-03) [facility] 08[place]/2023 Estab. patient 30-39min; chronic exacerbation, 2 stable chronic or 1 acute illness add add modifier 95 for video, (do not use for phone, instead use 03502-76) [facility] 08[place]2023 Estab. patient 30-39min; chronic exacerbation, 2 stable chronic or 1 acute illness add add modifier 95 for video, (do not use for phone, instead use 05047-77) [facility] [place] 08[place]2023 Estab. patient 30-39min; chronic exacerbation, 2 stable chronic or 1 acute illness add add modifier 95 for video, (do not use for phone, instead use 85246-75) [facility] Estab. patient 30-39min; chronic exacerbation, 2 stable chronic or 1 acute illness add add modifier 95 for video, (do not use for phone, instead use 79154-47) [facility]20[place] Estab. patient 30-39min; chronic exacerbation, 2 stable chronic or 1 acute illness add add modifier 95 for video, (do not use for phone, instead use 43221-40) [facility]20[place] Estab. patient 30-39min; chronic exacerbation, 2 stable chronic or 1 acute illness add add modifier 95 for video, (do not use for phone, instead use 06319-63) [facility]2023 Estab. patient 30-39min; chronic exacerbation, 2 stable chronic or 1 acute illness add add modifier 95 for video, (do not use for phone, instead use 63904-00) [facility] Estab. patient 10-29min; 1 minor problem; add add modifier 95 for video, modifier 93 for phone [facility] 04[place]/2024 Chronic sinusitis, unspecifi ed Estab. patient 10-29min; 1 minor problem; add add modifier 95 for video, modifier 93 for phone [facility] 04[place]/2024 Estab. patient 10-29min; 1 minor problem; add add modifier 95 for video, modifier 93 for phone [facility]20[place] Estab. patient 10-29min; 1 minor problem; add add modifier 95 for video, modifier 93 for phone [facility]2024 Estab. patient 10-29min; 1 minor problem; add add modifier 95 for video, modifier 93 for phone [facility] 04/[place]/2024 Essential (primary) hypertensionBipolar II disorderOld [...] 95 for video, modifier 93 for phone [facility] [place] Estab. patient 10-29min; 1 minor problem; add add modifier 95 for video, modifier 93 for phone [facility] [place] 04/14/2024 Estab. patient 10-29min; 1 minor problem; add add modifier 95 for video, modifier 93 for phone [facility] [place] 05/09/2024 Acute candidiasis of vulva a nd vagina Estab. patient 10-29min; 1 minor problem; add add modifier 95 for video, modifier 93 for phone [facility] [place] 07/19/2024 Acute upper [...] 95 for video, modifier 93 for phone [facility] [place] Estab. patient 10-29min; 1 minor problem; add add modifier 95 for video, modifier 93 for phone [facility] [place] 09[place]08/2024 Unspecified abdominal painOt her problems related to medical facilities and other health care Estab. patient 10-29min; 1 minor problem; add add modifier 95 for video, modifier 93 for phone [facility] [place] 09[place]08[place]2024 Retention of urine, unspecifiedUnspecified urinary incontinenceOveractive bladderUrinary tract infection, site not specified Estab. patient 10-29min; 1 minor problem; add add modifier 95 for video, modifier 93 for phone [facility] [place]08[place]20[place] Estab. patient 10-29min; 1 minor problem; add add modifier 95 for video, modifier 93 for phone [facility] [place] 09/08/2024 Estab. patient 10-29min; 1 minor problem; add add modifier 95 for video, modifier 93 for phone [facility] [place] 11/15/2024 Candidiasis, unspecified Vital Signs Date of Collection Vitals 2022-10-20 [...] date Servicing provider Phone# No Data Available [id number] 2022-10-20 No Data Available No Data Available [...] (do not use for phone, instead use 52036-32) [id number] 2022-10-15 No Data Available No Data Availa [...] No Data Avail able No Data Available [id number] 2023-01-05 No Data Available No Data Available No Data Available [id number] 2023-01-16 No Data Available No Data Available [...] No Data Anastacia ilable No Data Available [id number] 2023-02-03 No Data Available No Data Available No Data Available [id number] 2023-02-23 No Data Available No Data Available SBP 130-139 (3075F) 3075F 2023-02-23 No Data Availabl e No Data Available DBP 80-89 (3079F) 3079F 2023-02-23 No Data Available No Data Available Functional Status Assessed (1170F) 1170F 2023-02-23 No Data Available No Data Avail able Pain Assessment - NO pain present (1126F) 1126F 2023-02-23 No Data Available No Data A vailable No Data Available [id number] 2023-06-11 No Data Available No Data Available No Data Available [id number] 2023-07-09 No Data Available No Data Available Medication List Documented (1159F) 1159F 2023-07-09 No Data Available No Data Anastacia ilable SBP >= 140 3077F 2023-07-09 No Data Available No Data Available DBP <80 (3078F) 3078F 2023-07-09 No Data Available No Data Available No Data Available [id number] 2023-07-13 No Data Available No Data Available [...] (do not use for phone, instead use 37225-86) [id number] 2023-08-30 No Data Available No Data Availa [...] 95 for video, modifier 93 for phone [id number] 2024-04-12 No Data Available No Data Availa ble No Data Available [id number] 2024-04-12 No Data Available No Data Available SBP >= 140 3077F 2024-04-12 No Data Available No Data Available DBP <80 (3078F) 3078F 2024-04-12 No Data Available No Data Available Estab. patient 10-29min; 1 minor problem; add add modifier 95 for video, modifier 93 for phone [id number] 2024-04-14 No Data Available No Data Availa [...] 95 for video, modifier 93 for phone [id number] 2024-05-09 No Data Available No Data Availa ble Estab. patient 10-29min; 1 minor problem; add add modifier 95 for video, modifier 93 for phone [id number] 2024-07-19 No Data Available No Data Availa ble SBP < 130 (3074F) 3074F 2024-07-19 No Data Available No Data Available DBP <80 (3078F) 3078F 2024-07-19 No Data Available No Data Available Estab. patient 10-29min; 1 minor problem; add add modifier 95 for video, modifier 93 for phone [id number] 2024-09-05 No Data Available No Data Availa ble SBP >= 140 3077F 2024-09-05 No Data Available No Data Available DBP <80 (3078F) 3078F 2024-09-05 No Data Available No Data Available Estab. patient 10-29min; 1 minor problem; add add modifier 95 for video, modifier 93 for phone [id number] 2024-09-08 No Data Available No Data Availa ble Estab. patient 10-29min; 1 minor problem; add add modifier 95 for video, modifier 93 for phone [id number] 2024-09-09 No Data Available No Data Availa ble SBP >= 140 3077F 2024-09-09 No Data Available No Data Available DBP <80 (3078F) 3078F 2024-09-09 No Data Available No Data Available Estab. patient 10-29min; 1 minor problem; add add modifier 95 for video, modifier 93 for phone [id number] 2024-11-15 No Data Available No Data Availa ble [...] retentionUrinary incontinence-OAB (overactive bladder)Recurrent urinary tract infection 2024-11-15 14:57:00 Yeast infectionPresc ribed Diflucan and Nystatin creamEncouraged to stop Estradiol X1 week, until irritation resolves. Take medications as directed, good hygiene, wear breathable clothing. Call [facility] 05/10 with fever, abdominal pain, discharge, dysuria. 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 Dz management discussed2. Continue to follow up with PCP 2023-02-23 11:16:05 New Diflucan 150 mg Tab Take 1 tablet PO. May take 1 tablet 72 hours later if symptoms have not improved. #2 tablet DEp4Hox Miconazole Nitrate 2 % Crm Vaginal Apply to affected area daily x 7 days. #1 applicator [id number] (patient, parent, or guardian); 11-20 minutes of [...] Documented (1125F)Continue to see PCP. Follow-up with [facility] as [...] for and report early any s/s of maoolxvsg81/22/23- continue plan of care and conservative measures eRx New Loperamide 2 mg Cap 2 tablets after first loose stool, then take 1 tablet after each loose stool max 4 times daily #30 capsule ECu8mXi New Dicyclomine 20 mg Tab TAKE 1 TABLET BY MOUTH AC/HS for stomach pain/spasms #60 tablet DHq9cYb New Ondansetron 8 mg Tab Disintegrating 1 [...] personal hygiene wipes- hand soap and commercial fisherman as per prior order- box of medium gloves- to follow up with sample case porter and PCP for further monitoring and management [...] they most likely to go back?[facility] have a change in condition, [...] phoneContinue to see PCP. [facility] for any acute or disease [...] Follow up with Psychiatry for provider assignment10/15/22: [facility] done in 09/2022. No interventions.1. F/u with [...] for and report early any s/s of laqbqntoy89/22/23- continue plan of care and conservative measures eRx New Loperamide 2 mg Cap 2 tablets after first loose stool, then take 1 tablet after each loose stool max 4 times daily #30 capsule IOn5wQs New Dicyclomine 20 mg Tab TAKE 1 TABLET BY MOUTH AC/HS for stomach pain/spasms #60 tablet FBl7pKl New Ondansetron 8 mg Tab Disintegrating 1 [...] personal hygiene wipes- hand soap and commercial fisherman as per prior order- box of medium gloves- to follow up with sample case porter and PCP for further monitoring and management [...] they most likely to go back?Please call [facility] if you have a change in condition, [...] for phoneContinue to see PCP. Follow-up with [facility] as needed for any acute or disease education needs that may arise 05/10.Diflucan 150 mg Tab Take 1 tablet PO. May take 1 tablet 72 hours later if symptoms have not improved. #2 tablet YEn8Cohbcd underwearNotify for persistant symptoms. 2024-07-19 09:11:42 Televideo 10-29min; 1 minor problem; add add modifier 95 for video, modifier 93 for phoneContinue to see PCP. Follow-up with [facility] as needed for any acute or disease education needs that may arise 05/10.Amoxicillin-Pot Clavulanate 875/125 mg Tab Take 1 tablet PO twice daily for 7 days #14 tablet ZHk8Zcwrsp to tolerate prednisoneEnc use of alb inhaler Q 4 hrs prnContinue flonase and antihistamine. Tyelnol prnRest and hydrateNotify for worsening symptoms. 2024-09-05 09:02:34 Televideo 10-29min; 1 minor problem; add add modifier 95 for video, modifier 93 for phoneContinue to see PCP. Follow-up with [facility] as needed for any acute or disease education needs that may arise 05/10.09/05/24: Rx: Dicyclomine 20 mg Tab-TAKE 1 TABLET BY MOUTH BEFORE MEALS AND AT BEDTIME FOR STOMACH PAIN/SPASMS. Recommend bland diet-BRAT diet-Bananas, rice, applesauce, toast. Avoid coffee, alcohol, dairy products, fruit, vegetables, red meat, spicy or fried foods. F/I with GI. Contact [facility] 05/10 for any new, worsening or continued symptoms. 2024-09-08 13:43:08 Estab. patient 10-29 min; 1 minor problem; add add modifier 95 for video, modifier 93 for phoneContinue to see PCP. Follow-up with [facility] as needed for any acute or disease education needs that may arise 05/10.09/05/24: Rx: Dicyclomine 20 mg Tab-TAKE 1 TABLET BY MOUTH BEFORE MEALS AND AT BEDTIME FOR STOMACH PAIN/SPASMS. Recommend bland diet-BRAT diet-Bananas, rice, applesauce, toast. Avoid coffee, alcohol, dairy products, fruit, vegetables, red meat, spicy or fried foods. F/I with GI. Contact [facility] 05/10 for any new, worsening or continued symptoms.Monthly follow up calls with ptCONTINGENCY PLANWhy was the member in the hospital or ER most recently? Why are they most likely to go back?Please call [facility] if you have a change in condition, Blood pressure > 170/90Acute illness, change in condition or medication and with any questions about your healthFall, any unusual symptoms or have any medical questions! 2024-09-08 19:25:40 Televideo 10-29min; 1 minor problem; add add modifier 95 for video, modifier 93 for phoneSBP >= 140DBP <80 (3078F)Continue to see PCP. Follow-up with [facility] as needed for any acute or disease education needs that may arise 05/10.10/15/22: pt in need of new order for incontinence supplies- will order per pt's requestsincontinence liners/inserts quantity sufficient for QID sara-care- personal hygiene wipes- hand soap and commercial 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 #2 tablet RPt0bEk New Acetaminophen 500 mg Tab 2 tablets orally TID PRN fever/pain #30 tablet ELx6gXm New Nitrofurantoin Macrocrystal 100 mg Cap Take 1 tablet PO twice daily for 5 days. #10 tablet JNj1iEy New Ondansetron 8 mg Tab Disintegrating 1 tablet orally every 8 hours as needed nausea/vomiting #30 tablet RFx0 2024-11-15 14:57:00 New Nystatin [id number] UNIT/GM Crm 1 application topically to affected area 3 times per day #60 g RSq5Xmdyfo Diflucan 150 mg Tab Take 1 tablet PO. May take 1 tablet 72 hours later if symptoms have not improved. #3 tablet TWe5Mwkxju up plan for acute symptoms: As neededTelevideo 10-29min; 1 minor problem; add add modifier 95 for video, modifier 93 for phoneContinue to see PCP. Follow-up with [facility] as needed for any acute or disease education needs that may arise 05/10. Goals Date Goal 2022-10-20 do a NS [...] if no improvement Health Concerns Date Concern 2024-11-15 Patient/Guardian parul hurtado to visit via telehealth.Visit completed via:[ ] audio and video; [x] audio only 2024-11-15 Concerns for today's visit: ComplaintSummary: Member presents with vaginal irritation, itching and redness X2 days. Denies fever, discharge, FREED, dizziness, dysuria, Currently taking Estradiol 3X week. Denies any additional interventions. 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
--- OUTSIDE RECORDS SUMMARY | 2024-11-17 10:10 | XMS_ITS | Encounter Summary ---
Author Organization [facility] Address [address] [place] [address] Care Team Providers Care Perinatal Director Name Role Phone Unavailable Primary Care Provider Unavailabl e Encounter Details Date Type Department Care Team (Latest Contact Info) Description 08/26/2020 Abstract [facility] CONVERSIONS Dental, Provider, DDS Social History Tobacco [...] Description 12/04/2024 1:00 PM EDT Office Visit [facility] [address] [place] [address] documented as of this encounter Visit Diagnoses Not on filedocumented in this encounter
--- OUTSIDE RECORDS SUMMARY | 2024-11-17 10:10 | XMS_ITS | Clinical Summary ---
Author Organization [employer] Address [address] [place] [address] Care Team Providers Care Tandem Operator Name Role Phone Unavailable Primary Care [...] 4 Active Sodium Fluoride 1.1 % cream [place] teeth for 2 minutes, morning and night. Spit, do not rinse. Do not eat or drink anything for 30 minutes following use. 112 g 3 5 Active Active Problems Problem Noted Date Diagnosed Date Lupus (systemic lupus erythematosus) 07/05/2024 Encounters Date Type Department Care Team Description 10/03/2024 1:00 PM EDT Office Visit [facility] ADULT [facility]AL [address] [place] [address] Pancho Butcher, NILA Abrasion of teeth, localized (Primary Dx); Tooth abrasion; Inflammatory lesion of periapical tissue surrounding dental implant ([facility]/HCC) 09/28/2024 1:30 PM EDT Office Visit [facility] ADULT [facility] [address] [place] [address] Erica Tejada DDS 09/01/2024 3:00 PM EDT Office Visit [facility] ADULT [facility] [address] [place] [address] Erica Tejada DDS 08/23/2024 1:30 PM EDT Office Visit [facility]ULT [facility] [address] [place] [address] Raffy Johnston DMD History of tooth extraction, [...] Description 12/04/2024 1:00 PM EDT Office Visit [facility] [address] [place] [address] Health Maintenance Due Date Last Done Comments [...] X-Ray: Full Mouth 08/28/2023 021, 12/15/2012, 03/03/2012 Dental Prophylaxis 02/25/2024 08/25/2023, 1 04/25/2022, 02/05/2020, Additional history exists COVID-19 Vaccine ( season) 2024 04/06/2023, 01/14/2022, 02/03/2021, Additional history exists Influenza Vaccine (#1) 2024 [...] Relevant to Health Maintenance Insurance DENTAL - [facility] S[facility]
--- OUTSIDE RECORDS SUMMARY | 2024-11-17 10:10 | XMS_ITS | Encounter Summary ---
Author Organization [facility] Address [address] [place] [address] Phone Care Team Providers Care Digital Media Specialist Name Role Phone Osirsi Soni MD Primary Care Provider Encounter Details Date Type Department Care Team (Late st Contact Info) Description 06/03/2017 Ancillary [facility] [address] [place] [address] Donte Chris DO [address] [place] [address] Palpitations Social History Tobacco Use Types Packs/Day [...] Palpitations documented in this encounter Care Teams Digital Media Specialist Relationship Specialty Start Date End Date Osiris Soni MD [facility] [place] [address] PCP - General Internal Medicine 06/03/17 documented as of this encounter Additional Source Comments The information contained in this document represents components of the legal health record. It is not the complete legal health record.[facility]
== END 2024-11-17 14:26 | disposition home or self-care (01) ==
LOC: HO.HMCC 09:29
PROVIDERS: PCP Internal Medicine; Visit Provider Internal Medicine
DX: R74.01 Elevation of levels of liver transaminase levels (principal)

== ENCOUNTER 2024-11-22 09:36 | Outpatient (REF) | payer OTHER, SELFPAY ==
--- OUTSIDE RECORDS SUMMARY | 2024-01-07 07:00 | XMS_ITS ---
Author Organization [facility] Address [address] [place] [address] Care Team Providers Care It Lead Name Role Phone Nae LILLY, Osiris Primary Care Provider Alban Gerard Jr REASON FOR VISIT screening Encounters Encounter Location Date Provider Diagnosis [facility] [place] Outpatient [address] [place] [phone] 01/07/2024 Alban Lopez Jr Colon cancer screening Z12.11 and Family history of colon cancer Z80.0 Assessments Encounter Date Diagnosis (ICD Code) Assessment Notes Treatment Notes Treatment Clinical Notes Section Notes 01/07/2024 Colon cancer screening (ICD-10 - Z12.11) 01/07/2024 Family history of colon cancer (ICD-10 - Z80.0) Plan Of Treatment No Information Progress Notes * PAULETTE SERRANO MDOB:1955 (69 yo F)Acc No.[id number]:01/07/2024 COLON WITH MAC Patient: Eloy HAHN PAULETTE Nam Provider: Melodie Lopez MD :1955 A ge:68 Y S ex:Female Date:01/07/2024 Address:[address] [place], [place] [phone] Pcp:Osiris Soni MD Subjective: * Chief Complaints: [...] 1 Generated for Ye yepez/Jignesh/Morenitasmitting on: 0 11/22/2024 11:26 AM EDT
--- NOTE | ~2024-11-22 | FL_ITS ---
EXAMINATION: XR BARIUM SWALLOW CLINICAL INFORMATION: Dysphagia COMPARISON: None available. TECHNIQUE: Thick barium and saltine crackers and barium tablet was administered orally in upright view. Thin barium was administered in prone lying position. FINDINGS: Following oral administration of thick barium there is normal propagation of bolus from the oral cavity through the pharynx, esophagus into stomach without any evidence of obstruction, narrowing or stricture. Following oral administration of barium tablet and water there is normal propagation of tablet from the oral cavity through the pharynx, esophagus into stomach. There is transient holdup of barium in upper esophagus which clears with more water. On oral administration of saltine crackers and barium paste there is normal oral mastication and propagation of bolus from the oral cavity through the esophagus into stomach. On placing patient prone lying and oral administration of thin barium there is good esophageal distention without intraluminal filling defect or extrinsic compression. FLUOROSCOPY TIME: 2 minutes 52 seconds DOSE AREA PRODUCT: 1077 uGy-m2 (microgray-meter squared) FL/FL barium swallow IMPRESSION: Transient holdup of barium tablet in the upper esophagus at the level of aortic arch but otherwise unremarkable barium swallow exam. Electronically signed by: Tyrel Bolivar MD 11/22/2024 12:26 PM EDT
--- OUTSIDE RECORDS SUMMARY | 2024-11-22 11:26 | XMS_ITS | Clinical Summary ---
Author Organization [employer] Address [address] [address] [facility] [address] [place] [address] Care Team Providers Care Jig And Fixture Builder Name Role Phone Unavailable Primary Care Provider [...] 4 Active Sodium Fluoride 1.1 % cream [place] teeth for 2 minutes, morning and night. Spit, do not rinse. Do not eat or drink anything for 30 minutes following use. 112 g 3 5 Active Active Problems Problem Noted Date Diagnosed Date Lupus (systemic lupus erythematosus) 07/05/2024 Encounters Date Type Department Care Team Description 10/03/2024 1:00 PM EDT Office Visit [facility] ADULT [facility] [address] [place] [address] Pancho Butcher, NILA Abrasion of teeth, localized (Primary Dx); Tooth abrasion; Inflammatory lesion of periapical tissue surrounding dental implant ([facility]/HCC) 09/28/2024 1:30 PM EDT Office Visit [facility] [address] [place] [address] Erica Tejada DDS 09/01/2024 3:00 PM EDT Office Visit [facility] [address] [place] [address] Erica Tejada DDS 08/23/2024 1:30 PM EDT Office Visit [facility] [address] [place] [address] Raffy Johnston DMD History of tooth extraction, [...] Description 12/04/2024 1:00 PM EDT Office Visit [facility] [address] [place] [address] Health Maintenance Due Date Last Done Comments [...] Relevant to Health Maintenance Insurance DENTAL - [facility]
--- OUTSIDE RECORDS SUMMARY | 2024-11-22 11:26 | XMS_ITS | Patient Health Record ---
Author Organization [facility] Address [address] [place] [address] Care Team Providers Care Associate Professor Of Biology Name Role Phone Osiris Soni MD Primary [...] ORALLY DAILY Oral for 90 Active Ipratropium [place] 0.03 % USE 2 SPRAYS EACH NOSTRILS [...] Problem Status W/U Status Risk Notes Problem 294700735 Colon cancer screening (Z12.11) Active confirmed Problem 606481300 Gastro-esophage al reflux disease without esophagitis (K21.9) Active confirmed Problem 876114255 Generalized abdominal pain (R10.84) Active confirmed Problem 78581895 Other dysphagia (R13.19) Active confirmed Problem Dysphagia (70370000) Dysphagia (R13.10) Active confirmed Problem 42164498 Constipation, unspecified constipation type (K59.00) Active confirmed Problem Gastritis (3233991) Gastritis (K29.70) Active confirmed Problem 66755085 Diarrhea, unspecified type (R19.7) Active confirmed Problem Gastroesophageal reflux disease (728180185) Esophageal reflux disease (K21.9) Active confirmed Problem 39686566 Gastric intestinal metaplasia (K31.A0) Active confirmed Vital Signs Temperature 98.0 degrees Fahrenheit 11/29/2023 Blood pressure diastolic 00 mm Hg 11/29/2023 Height 65.5 in 11/29/2023 Blood pressure systolic 000 mm Hg 11/29/2023 Weight 145 lbs 11/29/2023 BMI 23.76 kg/m2 11/29/2023 Encounters Encounter Location Date Provider Diagnosis [facility] Outpatient [address], [place] [id number] 01/07/2024 Alban Lopez Jr Colon cancer screening Z12.11 and Family history of colon cancer Z80.0 [facility] [address] [place] [address] 11/29/2023 Alban John Toscano Gastro-esophageal reflux disease [...] Insured Coverage Start Date Coverage End Date [facility] [address] [address] [place] [address] [id number] MAGGIE PAULETTE Self - patient is the insured MEDICAID OF [facility] [address] [place] [address] [id number] PAULETTE SERRANO Self - patient is the insured Medical (General) History Medical History History ICD Code Hypertension bipolar disorder GERD, upper endoscopy 3, gastric intestinal metaplasia at one site, 2-3 year followup diverticulitis arthritis neuropathy Colonoscopy 01/31 benign cecal polyp, te n-year followup lupus Surgical History Surgery Date(Month/Year) hysterectomy 1985
--- OUTSIDE RECORDS SUMMARY | 2024-11-22 11:26 | XMS_ITS | Encounter Summary ---
Author Organization [facility] Address [address] [facility] [address] [place] [address] Phone Care Team Providers Care Rock Wool Applicator Name Role Phone Osiris Soni MD Primary Care Provider Encounter Details Date Type Department Care Team (Late st Contact Info) Description 06/03/2017 Ancillary [facility] [address] [place] [address] Donte Chris DO [address] [place] [address] Palpitations Social History Tobacco Use Types Packs/Day [...] Palpitations documented in this encounter Care Teams Rock Wool Applicator Relationship Specialty Start Date End Date Osiris Soni MD [facility] [place] [address] PCP - General Internal Medicine 06/03/17 documented as of this encounter Additional Source Comments The information contained in this document represents components of the legal health record. It is not the complete legal health record.[facility]
--- OUTSIDE RECORDS SUMMARY | 2024-11-22 11:26 | XMS_ITS | Clinical Summary ---
Author Organization [facility] Address [address] [place], [place] [id number] Phone Care Team Providers Care Solar Installation Foreman Name Role Phone Osiris Soni MD Primary [...] ACO ACO ACO [facility]CO [facility]CO [facility] Care Teams Solar Installation Foreman Relationship Specialty Start Date End Date Osiris Soni MD [address] [place] [address] PCP - General Internal Medicine 06/03/17 Additional Source Comments The information contained in this document represents components of the legal health record. It is not the complete legal health record.[facility]
--- OUTSIDE RECORDS SUMMARY | 2024-11-22 11:26 | XMS_ITS | Encounter Summary ---
Author Organization [employer] [facility] Address [address] [facility] [address] [place] [address] Care Team Providers Care Senior It Auditor Name Role Phone Unavailable Primary Care Provider Unavailabl e Encounter Details Date Type Department Care Team (Latest Contact Info) Description 03/30/2019 Abstract [facility] CONVERSIONS Dental, Provider, DDS Social [...] 1:00 PM EDT Office Visit [facility] ADULT DENTAL [address] [place] [address] documented as of this encounter Visit Diagnoses Not on filedocumented in this encounter
--- OUTSIDE RECORDS SUMMARY | 2024-11-22 11:26 | XMS_ITS | Encounter Summary ---
Author Organization [employer] [facility] Address [address] [facility] [address] [place] [address] Care Team Providers Care Supervisor Facepiece Line Name Role Phone Unavailable Primary Care Provider Unavailabl e Encounter Details Date Type Department Care Team (Latest Contact Info) Description 08/26/2020 Abstract [facility] CONVERSIONS Dental, Provider, DDS Social History [...] Description 12/04/2024 1:00 PM EDT Office Visit [facility] ADULT DENT[facility] [address] [place] [address] documented as of this encounter Visit Diagnoses Not on filedocumented in this encounter
--- OUTSIDE RECORDS SUMMARY | 2024-11-22 11:26 | XMS_ITS | Clinical Summary ---
Author Organization [facility] Address [address] [place] [address] Care Team Providers Care Fpga Engineer Name Role Phone Osiris Soni MD [...] age to complete this topic Care Teams Fpga Engineer Relationship Specialty Start Date End Date Osiris Soni MD [address] [place] [address] PCP - General Internal Medicine 06/06/11
--- OUTSIDE RECORDS SUMMARY | 2024-11-22 11:26 | XMS_ITS ---
Author Name Jenae Larson NP Address [address] [place] [address] Phone [phone] [facility] Care Team Providers [employer] Name Role Phone Jenae Larson Unavailable [phone] Alban Lopez Unavailable [phone] Reason for Referral Not Available Allergies, adverse [...] 7 days. 2023-02-23 No Data Available Ipratropium [place] 0.03 % Solution USE 2 SPRAYS EACH NOSTRILS 1-3 TIMES DAILY 15 MINUTES BEFORE MEALS 2023-05-06 No Data Available Diclofenac Sodium 1 % Gel 4 grams topica lly to affected area 4 times per day PRN 2023-07-09 No Data Available Loratadine 10 mg Tab TAKE 1 TABLET BY [facility] EVERY DAY 2023-07-27 No Data Available Escitalopram Oxalate 20 mg Tab No Data Available 06-10 No Data Available Triamcinolone Acetonide 0.1 % Oint No Data Available 2022-08-20 No Data Available Hydroxychloroquine Sulfate 2 00 mg Tab TAKE 1 AND 1/2 TABLETS BY MOUTH EVERY DAY 2023-08-19 No Data Available Terazosin 1 mg Cap TAKE 1 CAPSULE BY [facility] EVERYDAY AT BEDTIME 2023-12-14 No Data [...] 30 DAYS 2024-10-23 No Data Available Nystatin [id number] UNIT/GM Crm 1 applicatio n topically to [...] stool max 4 times daily #30 capsule [id number] New Dicyclomine 20 mg Tab TAKE 1 TABLET BY MOUTH AC/HS for stomach pain/spasms #60 tablet EIq3zUs New Ondansetron 8 mg Tab Disintegrating 1 [...] sara-care- personal hygiene wipes- hand soap and telemarketing agent as per prior order- box of medium gloves- to follow up with case loader operator and PCP for further monitoring and management [...] if symptoms have not improved. #2 tablet HXu0eWe New Acetaminophen 500 mg Tab 2 tablets orally TID PRN fever/pain #30 tablet STg1sUt New Nitrofurantoin Macrocrystal 100 mg Cap Take 1 tablet PO twice daily for 5 days. #10 tablet NRq7nZb New Ondansetron 8 mg Tab Disintegrating 1 [...] they most likely to go back?Please call [facility] if you have a change in [...] or fried foods. F/I with GI. Contact [facility] 05/10 for any new, worsening or continued symptoms. Encounters Encounters Type Facility Date of Service Diagnosis/Co mplaint No Data Available [facility] Other specified disorders of nose and nasal sinuses No Data Available [facility] No Data Available [facility] No Data Available [facility] No Data Available [facility] No Data Available [facility] No Data Available [facility] New patient,40-59min; chronic exacerbation, 2 stable chronic or 1 acute illness add add modifier 95 for video (do not use for phone, instead use 03641-91) [facility], ([place]2022 Rheumatoid arthritis, unspecifiedUlcerative colitis, unspecified, without complicationsAtopic dermatitis, unspecifiedRash and other nonspecific skin eruptionEssential (primary) hypertensionBipolar II disorderGastritis, unspecified, without bleedingDorsalgia, unspecifiedRetention of urine, unspecifiedRepeated fallsGastro-esophageal reflux disease without esophagitisOld myocardial infarction New patient,40-59min; chronic exacerbation, 2 stable chronic or 1 acute illness add add modifier 95 for video (do not use for phone, instead use 14696-35) [facility] New patient,40-59min; chronic exacerbation, 2 stable chronic or 1 acute illness add add modifier 95 for video (do not use for phone, instead use 82566-86) [facility] New patient,40-59min; chronic exacerbation, 2 stable chronic or 1 acute illness add add modifier 95 for video (do not use for phone, instead use 46925-44) [facility] New patient,40-59min; chronic exacerbation, 2 stable chronic or 1 acute illness add add modifier 95 for video (do not use for phone, instead use 56747-36) [facility] New patient,40-59min; chronic exacerbation, 2 stable chronic or 1 acute illness add add modifier 95 for video (do not use for phone, instead use 48440-01) [facility] New patient,40-59min; chronic exacerbation, 2 stable chronic or 1 acute illness add add modifier 95 for video (do not use for phone, instead use 37606-95) [facility] New patient,40-59min; chronic exacerbation, 2 stable chronic or 1 acute illness add add modifier 95 for video (do not use for phone, instead use 61430-81) [facility] No Data Available [facility] Mononeuropathy, unspecified No Data Available [facility] [place] Essential (primary) hypertensionBipolar II [...] 01/16/2023 No Data Available [facility] 02[place]2023 Ulcerative colitis, unspecif ied, without complicationsGastritis, unspecified, without bleedingGastro-esophageal reflux disease without esophagitisRetention of urine, unspecifiedUnspecified urinary incontinenceOveractive bladder No Data Available [facility] [place] Acute candidiasis of vulva a nd vaginaEncntr for general adult medical exam w/o abnormal findingsEssential (primary) hypertension No Data Available [facility] [place] No Data Available [facility] [place] No Data Available [facility] [place] No Data Available [facility] [place] No Data Available [facility]2023 Rheumatoid arthritis, unspec ified No Data Available [facility] [place] Rheumatoid arthritis, unspec ified No Data Available [facility] [place] No Data Available [facility] [place] No Data Available [facility] No Data Available [facility]23 Rheumatoid arthritis, unspec ified No Data Available [facility]23 No Data Available [facility] Estab. patient 30-39min; chronic exacerbation, 2 stable chronic or 1 acute illness add add modifier 95 for video, (do not use for phone, instead use 35409-28) [facility] 08[place]2023 Essential (primary) hypertensionBipolar II disorderOld myocardial [...] (do not use for phone, instead use 11775-07) [facility]/2023 Estab. patient 30-39min; chronic exacerbation, 2 stable chronic or 1 acute illness add add modifier 95 for video, (do not use for phone, instead use 43060-44) [facility] 08[place]/2023 Estab. patient 30-39min; chronic exacerbation, 2 stable chronic or 1 acute illness add add modifier 95 for video, (do not use for phone, instead use 50827-11) [facility] 08[place]/2023 Estab. patient 30-39min; chronic exacerbation, 2 stable chronic or 1 acute illness add add modifier 95 for video, (do not use for phone, instead use 73191-36) [facility] [place] 08/30/2023 Estab. patient 30-39min; chronic exacerbation, 2 stable chronic or 1 acute illness add add modifier 95 for video, (do not use for phone, instead use 15241-75) [facility] Estab. patient 30-39min; chronic exacerbation, 2 stable chronic or 1 acute illness add add modifier 95 for video, (do not use for phone, instead use 74694-16) [facility] Estab. patient 30-39min; chronic exacerbation, 2 stable chronic or 1 acute illness add add modifier 95 for video, (do not use for phone, instead use 28531-30) [facility]20[place] Estab. patient 30-39min; chronic exacerbation, 2 stable chronic or 1 acute illness add add modifier 95 for video, (do not use for phone, instead use 18906-34) [facility]20[place] Estab. patient 30-39min; chronic exacerbation, 2 stable chronic or 1 acute illness add add modifier 95 for video, (do not use for phone, instead use 69060-22) [facility] [place]20[place] Estab. patient [...] 95 for video, modifier 93 for phone [facility] [place] Estab. patient 10-29min; 1 minor problem; add add modifier 95 for video, modifier 93 for phone [facility] [place] Estab. patient 10-29min; 1 minor problem; add add modifier 95 for video, modifier 93 for phone [facility] [place] 05[place]09[place]2024 Acute candidiasis of vulva a nd vagina Estab. patient 10-29min; 1 minor problem; add add modifier 95 for video, modifier 93 for phone [facility] [place] 07[place]19[place]2024 Acute upper [...] 95 for video, modifier 93 for phone [facility] [place]20[place] Estab. patient 10-29min; 1 minor problem; add add modifier 95 for video, modifier 93 for phone [facility] [place]2024 Unspecified abdominal painOt her problems related to medical facilities and other health care Estab. patient 10-29min; 1 minor problem; add add modifier 95 for video, modifier 93 for phone [facility] [place]2024 Retention of urine, unspecifiedUnspecified urinary incontinenceOveractive bladderUrinary tract infection, site not specified Estab. patient 10-29min; 1 minor problem; add add modifier 95 for video, modifier 93 for phone [facility] [place] Estab. patient 10-29min; 1 minor problem; add add modifier 95 for video, modifier 93 for phone [facility] [place]08[place]20[place] Estab. patient 10-29min; 1 minor problem; add add modifier 95 for video, modifier 93 for phone [facility] [place] 11[place]15/2024 Candidiasis, unspecified Estab. 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 Phone# No Data Available [id number] 2022-10-20 No Data Available No Data Available [...] (do not use for phone, instead use 82189-43) [id number] 2022-10-15 No Data Available No Data Availa [...] No Data Avail able No Data Available [id number] 2023-01-05 No Data Available No Data Available No Data Available [id number] 2023-01-16 No Data Available No Data Available [...] No Data Anastacia ilable No Data Available [id number] 2023-02-03 No Data Available No Data Available [...] No Data A vailable No Data Available [id number] 2023-06-11 No Data Available No Data Available No Data Available 2023-07-09 No Data Available No Data Available Medication List Documented (1159F) 1159F 2023-07-09 No Data Available No Data Anastacia ilable SBP >= 140 3077F 2023-07-09 No Data Available No Data Available DBP <80 (3078F) 3078F 2023-07-09 No Data Available No Data Available No Data Available [id number] 2023-07-13 No Data Available No Data Available [...] (do not use for phone, instead use 62217-47) 04244 2023-08-30 No Data Available No Data Availa [...] 95 for video, modifier 93 for phone [id number] 2024-04-12 No Data Available No Data Availa ble No Data Available [id number] 2024-04-12 No Data Available No Data Available SBP >= 140 3077F 2024-04-12 No Data Available No Data Available DBP <80 (3078F) 3078F 2024-04-12 No Data Available No Data Available Estab. patient 10-29min; 1 minor problem; add add modifier 95 for video, modifier 93 for phone [id number] 2024-04-14 No Data Available No Data Availa [...] 95 for video, modifier 93 for phone [id number] 2024-05-09 No Data Available No Data Availa ble Estab. patient 10-29min; 1 minor problem; add add modifier 95 for video, modifier 93 for phone [id number] 2024-07-19 No Data Available No Data Availa ble SBP < 130 (3074F) 3074F 2024-07-19 No Data Available No Data Available DBP <80 (3078F) 3078F 2024-07-19 No Data Available No Data Available Estab. patient 10-29min; 1 minor problem; add add modifier 95 for video, modifier 93 for phone 45613 2024-09-05 No Data Available No Data Availa ble SBP >= 140 3077F 2024-09-05 No Data Available No Data Available DBP <80 (3078F) 3078F 2024-09-05 No Data Available No Data Available Estab. patient 10-29min; 1 minor problem; add add modifier 95 for video, modifier 93 for phone [id number] 2024-09-08 No Data Available No Data Availa ble Estab. patient 10-29min; 1 minor problem; add add modifier 95 for video, modifier 93 for phone [id number] 2024-09-09 No Data Available No Data Availa ble SBP >= 140 3077F 2024-09-09 No Data Available No Data Available DBP <80 (3078F) 3078F 2024-09-09 No Data Available No Data Available Estab. patient 10-29min; 1 minor problem; add add modifier 95 for video, modifier 93 for phone [id number] 2024-11-15 No Data Available No Data Availa ble Estab. patient 10-29min; 1 minor problem; add add modifier 95 for video, modifier 93 for phone [id number] 2024-11-22 No Data Available No Data Availa ble [...] 05/10 with fever, abdominal pain, discharge, dysuria. 2024-11-22 06:05:49 Yeast infection Plan of Care Date of Service Plans 2022-10-20 13:56:36 Televideo 20-29min; 1 stable chronic or 2 minor; add modifier 95Continue to see PCP. Follow-up with [facility] as [...] stool max 4 times daily #30 capsule ERx6xNl New Dicyclomine 20 mg Tab TAKE 1 TABLET BY MOUTH AC/HS for stomach pain/spasms #60 tablet QXa7uUi New Ondansetron 8 mg Tab Disintegrating 1 [...] sara-care- personal hygiene wipes- hand soap and telemarketing agent as per prior order- box of medium gloves- to follow up with case loader operator and PCP for further monitoring and management hx: 10/15/22: Reports urinary retention and managed with Flomax1. Dz management discussed2. Continue to follow up with PCP 2023-02-23 11:16:05 New Diflucan 150 mg Tab Take 1 tablet PO. May take 1 tablet 72 hours later if symptoms have not improved. #2 tablet LBi5Eeh Miconazole Nitrate 2 % Crm Vaginal Apply to affected area daily x 7 days. #1 applicator WQw3Degkt (patient, parent, or guardian); 11-20 minutes of [...] Follow up with Psychiatry for provider assignment10/15/22: [facility] done in 09/[facility]22. No interventions.1. F/u [...] for and report early any s/s of fexrqvvyf94/22/23- continue plan of care and conservative measures eRx New Loperamide 2 mg Cap 2 tablets after first loose stool, then take 1 tablet after each loose stool max 4 times daily #30 capsule GWz3zRl New Dicyclomine 20 mg Tab TAKE 1 TABLET BY MOUTH AC/HS for stomach pain/spasms #60 tablet WUu1mBr New Ondansetron 8 mg Tab Disintegrating 1 [...] sara-care- personal hygiene wipes- hand soap and telemarketing agent as per prior order- box of medium gloves- to follow up with case loader operator and PCP for further monitoring and management [...] they most likely to go back?[facility] a [facility] [...] for and report early any s/s of jmsjqadky87/22/23- continue plan of care and conservative measures eRx New Loperamide 2 mg Cap 2 tablets after first loose stool, then take 1 tablet after each loose stool max 4 times daily #30 capsule DYy3jMt New Dicyclomine 20 mg Tab TAKE 1 TABLET BY MOUTH AC/HS for stomach pain/spasms #60 tablet DLn0pRe New Ondansetron 8 mg Tab Disintegrating 1 [...] sara-care- personal hygiene wipes- hand soap and telemarketing agent as per prior order- box of medium gloves- to follow up with case loader operator and PCP for further monitoring and management [...] they most likely to go back?Please call [facility] if you have a change in [...] for phoneContinue to see PCP. Follow-up with [facility] as needed for any acute or disease education needs that may arise 05/10.Diflucan 150 mg Tab Take 1 tablet PO. May take 1 tablet 72 hours later if symptoms have not improved. #2 tablet EOw5Ojefng underwearNotify for persistant symptoms. 2024-07-19 09:11:42 Televideo 10-29min; 1 minor problem; add add modifier 95 for video, modifier 93 for phoneContinue to see PCP. Follow-up with [facility] as needed for any acute or disease education needs that may arise 05/10.Amoxicillin-Pot Clavulanate 875/125 mg Tab Take 1 tablet PO twice daily for 7 days #14 tablet WBd1Dcgfxo to tolerate prednisoneEnc use of alb inhaler Q 4 hrs prnContinue flonase and antihistamine. Tyelnol prnRest and hydrateNotify for worsening symptoms. 2024-09-05 09:02:34 Televideo 10-29min; 1 minor problem; add add modifier 95 for video, modifier 93 for phoneContinue to see PCP. Follow-up with [facility] as needed for any acute or disease education needs that may arise 05/10.09/05/24: Rx: Dicyclomine 20 mg Tab-TAKE 1 TABLET BY MOUTH BEFORE MEALS AND AT BEDTIME FOR STOMACH PAIN/SPASMS. Recommend bland diet-BRAT diet-Bananas, rice, applesauce, toast. Avoid coffee, alcohol, dairy products, fruit, vegetables, red meat, spicy or fried foods. F/I with GI. Contact [facility] 05/10 for any new, worsening or continued symptoms. 2024-09-08 13:43:08 Estab. patient 10-29 min; 1 minor problem; add add modifier 95 for video, modifier 93 for phoneContinue to see PCP. Follow-up with [facility] as needed for any acute or disease education needs that may arise 05/10.09/05/24: Rx: Dicyclomine 20 mg Tab-TAKE 1 TABLET BY MOUTH BEFORE MEALS AND AT BEDTIME FOR STOMACH PAIN/SPASMS. Recommend bland diet-BRAT diet-Bananas, rice, applesauce, toast. Avoid coffee, alcohol, dairy products, fruit, vegetables, red meat, spicy or fried foods. F/I with GI. Contact [facility] 05/10 for any new, worsening or continued symptoms.Monthly follow up calls with ptCONTINGENCY PLANWhy was the member in the hospital or ER most recently? Why are they most likely to go back?Please call [facility] if you have a change in condition, Blood pressure > 170/90Acute illness, change in condition or medication and with any questions about your healthFall, any unusual symptoms or have any medical questions! 2024-09-08 19:25:40 Televideo 10-29min; 1 minor problem; add add modifier 95 for video, modifier 93 for phoneSBP >= 140DBP <80 (3078F)Continue to see PCP. Follow-up with [facility] as needed for any acute or disease education needs that may arise 05/10.10/15/22: pt in need of new order for incontinence supplies- will order per pt's requestsincontinence liners/inserts quantity sufficient for QID sara-care- personal hygiene wipes- hand soap and telemarketing agent as per prior order- box of medium gloves- to follow up with case loader operator and PCP for further monitoring and management [...] if symptoms have not improved. #2 tablet TMf4wJc New Acetaminophen 500 mg Tab 2 tablets orally TID PRN fever/pain #30 tablet YNt9kEm New Nitrofurantoin Macrocrystal 100 mg Cap Take 1 tablet PO twice daily for 5 days. #10 tablet PBk1kBb New Ondansetron 8 mg Tab Disintegrating 1 tablet orally every 8 hours as needed nausea/vomiting #30 tablet RFx0 2024-11-15 14:57:00 New Nystatin [id number] UNIT/GM Crm 1 application topically to affected area 3 times per day #60 g XTq8Ryotyw Diflucan 150 mg Tab Take 1 tablet PO. May take 1 tablet 72 hours later if symptoms have not improved. #3 tablet UPv1Qhuatl up plan for acute symptoms: As neededTelevideo 10-29min; 1 minor problem; add add modifier 95 for video, modifier 93 for phoneContinue to see PCP. Follow-up with [facility] as needed for any acute or disease education needs that may arise 05/10. 2024-11-22 06:05:49 Estab. patient 10-29 min; 1 minor problem; add add modifier 95 for video, modifier 93 for phoneContinue to see PCP. Follow-up with [facility] as needed for any acute or disease education needs that may arise 05/10.resolved; continue good urogenital hygiene, wear breathable clothing. Call [facility] 05/10 with fever, abdominal pain, discharge, dysuria. Goals Date Goal 2022-10-20 do a NS nasal flush, apply warm compresses to you sinuses. if the pain does not resolve by tomorrow or if it gets worst please call us again 2022-10-15 Continue taking medi cations as directed and keep all follow up appointments with established PCP and Specialist. 2023-02-23 Diflucan and miconaz ole sent, call anytime if no improvement 2024-11-22 Continue taking medi cations as directed and keep all follow up appointments with established PCP and Specialist. Health Concerns Date Concern 2024-11-22 Patient/Guardian parul eed to visit via telehealth.Visit completed via:[ ] audio and video; [x] audio only 2024-11-22 Informed verbal cons ent was obtained from this patient to communicate and provide care using virtual and other telecommunications tools. 2024-11-22 Concerns for today's visit:For follow up after acute visit on 11/15/24 in which member was treated for yeast infection symptoms with nystatin cream and diflucan. I spoke with member via phone this morning and she reports symptoms have resolved. She is without any other acute issues or needs at this time. She was reminded of 05/10 acute line access. 2024-11-22 Most recent hospital stay or ER visit:No ER visits or hospitalizations documented in [facility] in 90 days. 2024-11-22 Open HEDIS Measures: No open measures
== END 2024-11-22 09:37 | disposition home or self-care (01) ==
LOC: HO.XRAY 09:36
PROVIDERS: PCP Internal Medicine; Visit Provider Internal Medicine Rheumatology
DX: R13.10 Dysphagia, unspecified (principal)
CPT/HCPCS: 74220

== ENCOUNTER → 2024-11-22 09:39 | Outpatient (BNV) | payer OTHER, SELFPAY | PROVIDERS: PCP Internal Medicine; Visit Provider Radiology Diagnostic Radiology | DX: R13.10 Dysphagia, unspecified (principal) | CPT/HCPCS: 74246 ==

== ENCOUNTER 2024-11-23 16:07 | Outpatient (AMB) | payer OTHER, SELFPAY ==
--- OUTSIDE RECORDS SUMMARY | 2024-01-07 07:00 | XMS_ITS ---
Author Organization [facility] Address [address] [place] [address] Care Team Providers Care Inspector Fuel Hose Name Role Phone Nae LILLY, Osiris Primary Care Provider Alban Gerard Jr REASON FOR VISIT screening Encounters Encounter Location Date Provider Diagnosis [facility] [place] Outpatient [address] [place] [phone] 01/07/2024 Alban Lopez Jr Colon cancer screening Z12.11 and Family history of colon cancer Z80.0 Assessments Encounter Date Diagnosis (ICD Code) Assessment Notes Treatment Notes Treatment Clinical Notes Section Notes 01/07/2024 Colon cancer screening (ICD-10 - Z12.11) 01/07/2024 Family history of colon cancer (ICD-10 - Z80.0) Plan Of Treatment No Information Progress Notes * PAULETTE SERRANO MDOB:1955 (69 yo F)Acc No.[id number]:01/07/2024 COLON WITH MAC Patient: Eloy HAHN PAULETTE Nam Provider: Melodie Lopez MD :1955 A ge:68 Y S ex:Female Date:01/07/2024 Address:[address] [place], [place] [phone] Pcp:Osiris Soni MD Subjective: * Chief Complaints: [...] 1 Generated for Ye yepez/Jignesh/Morenitasmitting on: 0 11/23/2024 06:53 PM EDT
[2024-11-23 16:17] VITALS: BP 138/70; PULSE 80; TEMP 36.8; O2SAT 98; BMI 24.7
--- NOTE | 2024-11-23 16:17 | MHC.OFFWIV ---
Intake Vital Signs 11/23/24 16:17 Height 5 ft 4 in Weight 144 lb BMI 24.7 BP 138/70 Blood Pressure Location Lt brachial Position Sitting Pulse 80 Pulse Source Pulse Oximeter Temp 98.2 F Temp Source Oral Pulse Oximetry (%) 98 Oxygen Delivery Method Room Air Intake Visit Reasons: EP-rt eye swollen, itchy, redness Intake Note: pt presents with RT eye redness, swelling, light sensitivity causing weeping, itching & painful for 3 days Patient Tobacco Use Status: Former Tobacco user Allergies prednisone Adverse Reaction (Intermediate, Verified 11/23/24 16:21) Anxiety Do you need a note to return to daycare/school/sports/work: No HPI HPI Comments History of Present Illness Details History of Present Illness - The patient is a 69-year-old female presenting with right eye pain. - The patient has been having pain in the right lower eyelid and some redness for the past few days. - The patient reported seeing small floaters and experiencing mild tearing at night. - The patient was having some itchiness to the eye but she has no discharge. - She denies blurry or double vision. - She denies redness, eye pain, or tearing. Physical Exam General: Cooperative, healthy appearing, comfortable, no acute distress and well developed Orientation: Patient oriented x3 Eyes: Appearance normal, both eyes and all related structures. PERRLA. EOMI. Sclera is white, conjunctiva is pink. Small raised tender area noted on the right lower eyelid on the lateral aspect. No crusting noted. Respiratory: Normal respiratory effort and able to speak in complete sentences. Clear to auscultation bilaterally Cardiovascular: Regular rate and rhythm. Normal S1 and S2 Patient was informed and verbally consented to the use of an ambient scribe for clinic note documentation during this visit. [facility] Medical History (Updated 11/18/24 @ 22:41 by Osiris Soni MD) Elevation of levels of liver transaminase levels Eosinophilia Asthma Allergic rhinitis Dyspnea on exertion Restrictive lung disease Venous insufficiency Right carotid bruit Diverticulitis Bipolar 1 disorder GERD (gastroesophageal reflux disease) History of cervical cancer Irritable bowel syndrome with constipation Weak urinary stream Surgical menopause Osteopenia Essential hypertension Dyslipidemia Anxiety Surgical History History of cardiac cath Hx of esophagogastroduodenoscopy Hx of colonoscopy History of partial hysterectomy Family History Father Throat cancer Mother No problems noted. Brother No problems noted. Sister No problems noted. Sister No problems noted. Sister No problems noted. Sister Hyperlipidemia HTN (hypertension) Depression Myocardial infarction Daughter No problems noted. Daughter No problems noted. Daughter No problems noted. Daughter No problems noted. Paternal Aunt Rheumatoid arthritis Other Mental health disorder Substance use disorder Social History Housing: Apartment Alcohol intake: current Alcohol intake frequency: does not drink Alcohol type: wine Patient Tobacco Use Status: Former Tobacco user e-Cigarette/Vaping Use: Never Used Advance Directives Date on File: 01/15/23 service: No Current occupational status: unemployed Cognitive needs: No Hearing needs: No Vision needs: No Review of Systems Const All systems reviewed & are unremarkable except as noted in HPI and below Physical Exam Vital Signs: Last Vital Signs Temp 98.2 F 11/23/24 16:17 Pulse 80 11/23/24 16:17 BP 138/70 11/23/24 16:17 Pulse Ox 98 11/23/24 16:17 Oxygen Delivery Method Room Air 11/23/24 16:17 BMI result Body Mass Index 24.7 Assessment & Plan Assessment & Plan (1) Pain, eye, right: Code(s): H57.11 - Ocular pain, right eye Plan 1. Hordeolum (Sty) - Prescribed antibiotic ointment to be applied to the eyelid four times daily. - Recommended warm compresses to facilitate drainage. - Advised follow-up with an almond roaster if symptoms persist. Medications: New erythromycin Apply to left eye 4 times a day while awake 0.5 inches ophthalmic (eye) QID 3.5 grams 0RF Coding Level of Care Code Est Pt Level 3 (79728) Diagnoses Pain, eye, right H57.11
--- OUTSIDE RECORDS SUMMARY | 2024-11-23 18:54 | XMS_ITS | Clinical Summary ---
Author Organization [facility] Address [address] [place], [place] [id number] Phone Care Team Providers Care Health Care Liaison Name Role Phone Osiris Soni MD Primary [...] ACO ACO ACO ACO ACO ACO ACO [facility] Care Teams Health Care Liaison Relationship Specialty Start Date End Date Osiris Soni MD [address] [place] [address] PCP - General Internal Medicine 06/03/17 Additional Source Comments The information contained in this document represents components of the legal health record. It is not the complete legal health record.[facility]
--- OUTSIDE RECORDS SUMMARY | 2024-11-23 18:54 | XMS_ITS | Encounter Summary ---
Author Organization [employer] [facility] Address [address] [place] [address] Care Team Providers Care Boarder Hand Name Role Phone Unavailable Primary Care Provider Unavailabl e Encounter Details Date Type Department Care Team (Latest Contact Info) Description 03/30/2019 Abstract [facility] CONVERSIONS Dental, Provider, DDS Social History [...] Description 12/04/2024 1:00 PM EDT Office Visit [facility] [address] [place] [address] documented as of this encounter Visit Diagnoses Not on filedocumented in this encounter
--- OUTSIDE RECORDS SUMMARY | 2024-11-23 18:54 | XMS_ITS | Patient Health Record ---
Author Organization [facility] Address [address] [place] [address] Care Team Providers Care Press Tender Smoke Signal Name Role Phone Osiris Soni MD Primary [...] ORALLY DAILY Oral for 90 Active Ipratropium [place] 0.03 % USE 2 SPRAYS EACH NOSTRILS [...] Problem Status W/U Status Risk Notes Problem 166667808 Colon cancer screening (Z12.11) Active confirmed Problem 659804105 Gastro-esophage al reflux disease without esophagitis (K21.9) Active confirmed Problem 584768552 Generalized abdominal pain (R10.84) Active confirmed Problem 13332415 Other dysphagia (R13.19) Active confirmed Problem Dysphagia (86313643) Dysphagia (R13.10) Active confirmed Problem 35784552 Constipation, unspecified constipation type (K59.00) Active confirmed Problem Gastritis (3721602) Gastritis (K29.70) Active confirmed Problem 38685630 Diarrhea, unspecified type (R19.7) Active confirmed Problem Gastroesophageal reflux disease (028624580) Esophageal reflux disease (K21.9) Active confirmed Problem 57073003 Gastric intestinal metaplasia (K31.A0) Active confirmed Vital Signs Temperature 98.0 degrees Fahrenheit 11/29/2023 Blood pressure diastolic 00 mm Hg 11/29/2023 Height 65.5 in 11/29/2023 Blood pressure systolic 000 mm Hg 11/29/2023 Weight 145 lbs 11/29/2023 BMI 23.76 kg/m2 11/29/2023 Encounters Encounter Location Date Provider Diagnosis [facility] [place] Outpatient [address] [place], [place] [id number] 01/07/2024 Alban Lopez Jr Colon cancer screening Z12.11 and Family history of colon cancer Z80.0 [facility] [address] [place] [address] 11/29/2023 Alban John Toscano Gastro-esophageal reflux disease [...] Insured Coverage Start Date Coverage End Date [facility] [address] [address] [place] [phone] [id number] MAGGIE PAULETTE Self - patient is the insured MEDICAID OF [facility] [address] [place] [address] [id number] PAULETTE SERRANO Self - patient is the insured Medical (General) History Medical History History ICD Code Hypertension bipolar disorder GERD, upper endoscopy 3, gastric intestinal metaplasia at one site, 2-3 year followup diverticulitis arthritis neuropathy Colonoscopy 01/31 benign cecal polyp, te n-year followup lupus Surgical History Surgery Date(Month/Year) hysterectomy 1985
--- OUTSIDE RECORDS SUMMARY | 2024-11-23 18:54 | XMS_ITS | Encounter Summary ---
Author Organization [facility] Address [address] [place] [address] Care Team Providers Care Hospital Aides And Assistants Teacher Name Role Phone Unavailable Primary Care Provider Unavailabl e Encounter Details Date Type Department Care Team (Latest Contact Info) Description 08/26/2020 Abstract [facility] CONVERSIONS Dental, Provider, DDS Social [...] Description 12/04/2024 1:00 PM EDT Office Visit [facility] ADULT DENTAL [address] [place] [address] documented as of this encounter Visit Diagnoses Not on filedocumented in this encounter
--- OUTSIDE RECORDS SUMMARY | 2024-11-23 18:54 | XMS_ITS | Encounter Summary ---
Author Organization [facility] Address [address] [place] [address] Phone Care Team Providers Care Dairy Husbandman Name Role Phone Osiris Soni MD Primary Care Provider Encounter Details Date Type Department Care Team (Late st Contact Info) Description 06/03/2017 Ancillary [facility] [address] [place] [address] Donte Chris DO [address] [place] [address] Palpitations Social History Tobacco Use Types Packs/Day [...] Palpitations documented in this encounter Care Teams Dairy Husbandman Relationship Specialty Start Date End Date Osiris Soni MD [facility] [address] [place] [address] PCP - General Internal Medicine 06/03/17 documented as of this encounter Additional Source Comments The information contained in this document represents components of the legal health record. It is not the complete legal health record.[facility]
--- OUTSIDE RECORDS SUMMARY | 2024-11-23 18:54 | XMS_ITS ---
Author Name Jenae Larson NP Address [address] [place] [address] Phone [phone] Organization [facility] Care Team Providers Care Digital Research Analyst Name Role Phone Jenae Larson Unavailable [phone] Alban Lopez Unavailable [phone] Reason for Referral Not Available Allergies, adverse [...] 7 days. 2023-02-23 No Data Available Ipratropium [place] 0.03 % Solution USE 2 SPRAYS EACH NOSTRILS 1-3 TIMES DAILY 15 MINUTES BEFORE MEALS 2023-05-06 No Data Available Diclofenac Sodium 1 % Gel 4 grams topica lly to affected area 4 times per day PRN 2023-07-09 No Data Available Loratadine 10 mg Tab TAKE 1 TABLET BY [facility] EVERY DAY 2023-07-27 No Data Available Escitalopram Oxalate 20 mg Tab No Data Available 06-10 No Data Available Triamcinolone Acetonide 0.1 % Oint No Data Available 2022-08-20 No Data Available Hydroxychloroquine Sulfate 2 00 mg Tab TAKE 1 AND 1/2 TABLETS BY MOUTH EVERY DAY 2023-08-19 No Data Available Terazosin 1 mg Cap TAKE 1 CAPSULE BY [facility] EVERYDAY AT BEDTIME 2023-12-14 No Data [...] 30 DAYS 2024-10-23 No Data Available Nystatin [id number] UNIT/GM Crm 1 applicatio n topically to [...] stool max 4 times daily #30 capsule [id number] New Dicyclomine 20 mg Tab TAKE 1 TABLET BY MOUTH AC/HS for stomach pain/spasms #60 tablet EOl0iUc New Ondansetron 8 mg Tab Disintegrating 1 [...] sara-care- personal hygiene wipes- hand soap and parlor maid as per prior order- box of medium gloves- to follow up with manager of case and PCP for further monitoring and management [...] if symptoms have not improved. #2 tablet FSg3eOp New Acetaminophen 500 mg Tab 2 tablets orally TID PRN fever/pain #30 tablet YHr4zBq New Nitrofurantoin Macrocrystal 100 mg Cap Take 1 tablet PO twice daily for 5 days. #10 tablet BXl7gHt New Ondansetron 8 mg Tab Disintegrating 1 [...] or fried foods. F/I with GI. Contact [facility] 05/10 for any new, worsening or continued symptoms. Encounters Encounters Type Facility Date of Service Diagnosis/Co mplaint No Data Available [facility] Other specified disorders of nose and nasal sinuses No Data Available [facility] No Data Available [facility] No Data Available [facility] No Data Available [facility] No Data Available [facility] No Data Available [facility] New patient,40-59min; chronic exacerbation, 2 stable chronic or 1 acute illness add add modifier 95 for video (do not use for phone, instead use 50035-47) [facility], ([place]20[place] Rheumatoid arthritis, unspecifiedUlcerative colitis, unspecified, without complicationsAtopic dermatitis, unspecifiedRash and other nonspecific skin eruptionEssential (primary) hypertensionBipolar II disorderGastritis, unspecified, without bleedingDorsalgia, unspecifiedRetention of urine, unspecifiedRepeated fallsGastro-esophageal reflux disease without esophagitisOld myocardial infarction New patient,40-59min; chronic exacerbation, 2 stable chronic or 1 acute illness add add modifier 95 for video (do not use for phone, instead use 35854-05) [facility] New patient,40-59min; chronic exacerbation, 2 stable chronic or 1 acute illness add add modifier 95 for video (do not use for phone, instead use 30315-17) [facility] New patient,40-59min; chronic exacerbation, 2 stable chronic or 1 acute illness add add modifier 95 for video (do not use for phone, instead use 38968-47) [facility] New patient,40-59min; chronic exacerbation, 2 stable chronic or 1 acute illness add add modifier 95 for video (do not use for phone, instead use 25875-92) [facility] New patient,40-59min; chronic exacerbation, 2 stable chronic or 1 acute illness add add modifier 95 for video (do not use for phone, instead use 82450-62) [facility] New patient,40-59min; chronic exacerbation, 2 stable chronic or 1 acute illness add add modifier 95 for video (do not use for phone, instead use 15480-75) [facility] New patient,40-59min; chronic exacerbation, 2 stable chronic or 1 acute illness add add modifier 95 for video (do not use for phone, instead use 32063-40) [facility] No Data Available [facility]20[place] Mononeuropathy, unspecified No Data Available [facility] [place] Essential (primary) hypertensionBipolar II disorderOld myocardial infarctionRheumatoid arthritis, unspecifiedGastritis, unspecified, without bleedingUlcerative colitis, unspecified, without complicationsDorsalgia, unspecifiedAtopic dermatitis, unspecifiedRash and other nonspecific skin eruptionRetention of urine, unspecifiedRepeated fallsGastro-esophageal reflux disease without esophagitisNasal congestionMononeuropathy, unspecified No Data Available [facility] [place] No Data Available [facility] [place] No Data Available [facility] [place] No Data Available [facility] [place] No Data Available [facility] [place] No Data Available [facility] 02[place]03[place]2023 Ulcerative colitis, unspecif ied, without complicationsGastritis, unspecified, without bleedingGastro-esophageal reflux disease without esophagitisRetention of urine, unspecifiedUnspecified urinary incontinenceOveractive bladder No Data Available [facility] [place] Acute candidiasis of vulva a nd vaginaEncntr for general adult medical exam w/o abnormal findingsEssential (primary) hypertension No Data Available [facility] [place] No Data Available [facility] [place] No Data Available [facility] [place] No Data Available [facility] [place] 02[place] No Data Available [facility] 06[place]11/2023 Rheumatoid arthritis, unspec ified No Data Available [facility] [place]2023 Rheumatoid arthritis, unspec ified No Data Available [facility] [place]20[place] No Data Available [facility] [place]20[place] No Data Available [facility] 07[place]20[place] No Data Available [facility]2023 Rheumatoid arthritis, unspec ified No Data Available [facility] 07[place]13[place]2023 No Data Available [facility] 07[place]13/20[place] Estab. patient 30-39min; chronic exacerbation, 2 stable chronic or 1 acute illness add add modifier 95 for video, (do not use for phone, instead use 43639-54) [facility]20[place] Essential (primary) hypertensionBipolar II disorderOld myocardial [...] (do not use for phone, instead use 16024-80) [facility] 08[place]20[place] Estab. patient 30-39min; chronic exacerbation, 2 stable chronic or 1 acute illness add add modifier 95 for video, (do not use for phone, instead use 59657-50) [facility] 08/30/20[place] Estab. patient 30-39min; chronic exacerbation, 2 stable chronic or 1 acute illness add add modifier 95 for video, (do not use for phone, instead use 28105-26) [facility] 08[place]30/20[place] Estab. patient 30-39min; chronic exacerbation, 2 stable chronic or 1 acute illness add add modifier 95 for video, (do not use for phone, instead use 62931-03) [facility] 08/30/20[place] Estab. patient 30-39min; chronic exacerbation, 2 stable chronic or 1 acute illness add add modifier 95 for video, (do not use for phone, instead use 01213-04) [facility] 08[place]/20[place] Estab. patient 30-39min; chronic exacerbation, 2 stable chronic or 1 acute illness add add modifier 95 for video, (do not use for phone, instead use 29909-53) [facility]20[place] Estab. patient 30-39min; chronic exacerbation, 2 stable chronic or 1 acute illness add add modifier 95 for video, (do not use for phone, instead use 49859-76) [facility]20[place] Estab. patient 30-39min; chronic exacerbation, 2 stable chronic or 1 acute illness add add modifier 95 for video, (do not use for phone, instead use 68802-14) [facility]20[place] Estab. patient 30-39min; chronic exacerbation, 2 stable chronic or 1 acute illness add add modifier 95 for video, (do not use for phone, instead use 05218-57) [facility] Estab. patient 10-29min; 1 minor problem; add add modifier 95 for video, modifier 93 for phone [facility] 04[place]/2024 Chronic sinusitis, unspecifi ed Estab. patient 10-29min; 1 minor problem; add add modifier 95 for video, modifier 93 for phone [facility] 04[place]11/[place] Estab. patient 10-29min; 1 minor problem; add add modifier 95 for video, modifier 93 for phone [facility]/11/20[place] Estab. patient 10-29min; 1 minor problem; add add modifier 95 for video, modifier 93 for phone [facility]/11/20[place] Estab. patient 10-29min; 1 minor problem; add add modifier 95 for video, modifier 93 for phone [facility] 04/14/2024 Essential (primary) hypertensionBipolar II disorderOld [...] 95 for video, modifier 93 for phone [facility] [place] Estab. patient 10-29min; 1 minor problem; add add modifier 95 for video, modifier 93 for phone [facility] [place] 04/14/2024 Estab. patient 10-29min; 1 minor problem; add add modifier 95 for video, modifier 93 for phone [facility] [place] 05/09/2024 Acute candidiasis of vulva a nd vagina Estab. patient 10-29min; 1 minor problem; add add modifier 95 for video, modifier 93 for phone [facility] [place] 07/19/2024 [...] 95 for video, modifier 93 for phone [facility] [place] 09[place]05/20[place] Estab. patient 10-29min; 1 minor problem; add add modifier 95 for video, modifier 93 for phone [facility] [place] 09/08/2024 Unspecified abdominal painOt her problems related to medical facilities and other health care Estab. patient 10-29min; 1 minor problem; add add modifier 95 for video, modifier 93 for phone [facility] [place] 09/08/2024 Retention of urine, unspecifiedUnspecified urinary incontinenceOveractive bladderUrinary tract infection, site not specified Estab. patient 10-29min; 1 minor problem; add add modifier 95 for video, modifier 93 for phone [facility] [place] 09/08/2024 Estab. patient 10-29min; 1 minor problem; add add modifier 95 for video, modifier 93 for phone [facility] [place] 09/08/2024 Estab. patient 10-29min; 1 minor problem; add add modifier 95 for video, modifier 93 for phone [facility] [place] 11/15/2024 Candidiasis, unspecified Estab. patient 10-29min; 1 minor problem; add add modifier 95 for video, modifier 93 for phone [facility], [place] 11/22/2024 Candidiasis, unspecified Vital Signs Date [...] date Servicing provider Phone# No Data Available [id number] 2022-10-20 No Data Available No Data Available [...] (do not use for phone, instead use [id number]) [id number] 2022-10-15 No Data Available No Data Availa [...] No Data Avail able No Data Available [id number] 2023-01-05 No Data Available No Data Available No Data Available [id number] 2023-01-16 No Data Available No Data Available [...] No Data Anastacia ilable No Data Available [id number] 2023-02-03 No Data Available No Data Available [...] No Data A vailable No Data Available [id number] 2023-06-11 No Data Available No Data Available No Data Available 2023-07-09 No Data Available No Data Available Medication List Documented (1159F) 1159F 2023-07-09 No Data Available No Data Anastacia ilable SBP >= 140 3077F 2023-07-09 No Data Available No Data Available DBP <80 (3078F) 3078F 2023-07-09 No Data Available No Data Available No Data Available [id number] 2023-07-13 No Data Available No Data Available [...] (do not use for phone, instead use 16460-89) [id number] 2023-08-30 No Data Available No Data Availa [...] 95 for video, modifier 93 for phone [id number] 2024-04-12 No Data Available No Data Availa ble No Data Available [id number] 2024-04-12 No Data Available No Data Available SBP >= 140 3077F 2024-04-12 No Data Available No Data Available DBP <80 (3078F) 3078F 2024-04-12 No Data Available No Data Available Estab. patient 10-29min; 1 minor problem; add add modifier 95 for video, modifier 93 for phone [id number] 2024-04-14 No Data Available No Data Availa [...] 95 for video, modifier 93 for phone [id number] 2024-05-09 No Data Available No Data Availa ble Estab. patient 10-29min; 1 minor problem; add add modifier 95 for video, modifier 93 for phone [id number] 2024-07-19 No Data Available No Data Availa ble SBP < 130 (3074F) 3074F 2024-07-19 No Data Available No Data Available DBP <80 (3078F) 3078F 2024-07-19 No Data Available No Data Available Estab. patient 10-29min; 1 minor problem; add add modifier 95 for video, modifier 93 for phone [id number] 2024-09-05 No Data Available No Data Availa ble SBP >= 140 3077F 2024-09-05 No Data Available No Data Available DBP <80 (3078F) 3078F 2024-09-05 No Data Available No Data Available Estab. patient 10-29min; 1 minor problem; add add modifier 95 for video, modifier 93 for phone [id number] 2024-09-08 No Data Available No Data Availa ble Estab. patient 10-29min; 1 minor problem; add add modifier 95 for video, modifier 93 for phone [id number] 2024-09-09 No Data Available No Data Availa ble SBP >= 140 3077F 2024-09-09 No Data Available No Data Available DBP <80 (3078F) 3078F 2024-09-09 No Data Available No Data Available Estab. patient 10-29min; 1 minor problem; add add modifier 95 for video, modifier 93 for phone [id number] 2024-11-15 No Data Available No Data Availa ble Estab. patient 10-29min; 1 minor problem; add add modifier 95 for video, modifier 93 for phone [id number] 2024-11-22 No Data Available No Data Availa [...] stool max 4 times daily #30 capsule JRn3xZl New Dicyclomine 20 mg Tab TAKE 1 TABLET BY MOUTH AC/HS for stomach pain/spasms #60 tablet MNe8aMj New Ondansetron 8 mg Tab Disintegrating 1 [...] sara-care- personal hygiene wipes- hand soap and parlor maid as per prior order- box of medium gloves- to follow up with manager of case and PCP for further monitoring and management hx: 10/15/22: Reports urinary retention and managed with Flomax1. Dz management discussed2. Continue to follow up with PCP 2023-02-23 11:16:05 New Diflucan 150 mg Tab Take 1 tablet PO. May take 1 tablet 72 hours later if symptoms have not improved. #2 tablet VQk3Riv Miconazole Nitrate 2 % Crm Vaginal Apply to affected area daily x 7 days. #1 applicator BNi3Hrzuf (patient, parent, or guardian); 11-20 minutes of [...] Follow up with Psychiatry for provider assignment10/15/22: [facility] done in 09/2022. No interventions.1. F/u [...] for and report early any s/s of axicohnmu67/22/23- continue plan of care and conservative measures eRx New Loperamide 2 mg Cap 2 tablets after first loose stool, then take 1 tablet after each loose stool max 4 times daily #30 capsule AHl2tOm New Dicyclomine 20 mg Tab TAKE 1 TABLET BY MOUTH AC/HS for stomach pain/spasms #60 tablet UCz6mGc New Ondansetron 8 mg Tab Disintegrating 1 [...] sara-care- personal hygiene wipes- hand soap and parlor maid as per prior order- box of medium gloves- to follow up with manager of case and PCP for further monitoring and management [...] they most likely to go back?Please call [facility] if you have a change in [...] for and report early any s/s of wzlicnlps78/22/23- continue plan of care and conservative measures eRx New Loperamide 2 mg Cap 2 tablets after first loose stool, then take 1 tablet after each loose stool max 4 times daily #30 capsule RRa5kSh New Dicyclomine 20 mg Tab TAKE 1 TABLET BY MOUTH AC/HS for stomach pain/spasms #60 tablet MHm4hUy New Ondansetron 8 mg Tab Disintegrating 1 [...] sara-care- personal hygiene wipes- hand soap and parlor maid as per prior order- box of medium gloves- to follow up with manager of case and PCP for further monitoring and management [...] for phoneContinue to see PCP. Follow-up with [facility] as needed for any acute or disease education needs that may arise 05/10.Diflucan 150 mg Tab Take 1 tablet PO. May take 1 tablet 72 hours later if symptoms have not improved. #2 tablet YOr6Khkuae underwearNotify for persistant symptoms. 2024-07-19 09:11:42 Televideo 10-29min; 1 minor problem; add add modifier 95 for video, modifier 93 for phoneContinue to see PCP. Follow-up with [facility] as needed for any acute or disease education needs that may arise 05/10.Amoxicillin-Pot Clavulanate 875/125 mg Tab Take 1 tablet PO twice daily for 7 days #14 tablet PJr8Bsidey to tolerate prednisoneEnc use of alb inhaler Q 4 hrs prnContinue flonase and antihistamine. Tyelnol prnRest and hydrateNotify for worsening symptoms. 2024-09-05 09:02:34 Televideo 10-29min; 1 minor problem; add add modifier 95 for video, modifier 93 for phoneContinue to see PCP. Follow-up with [facility] as needed for any acute or disease education needs that may arise 05/10.09/05/24: Rx: Dicyclomine 20 mg Tab-TAKE 1 TABLET BY MOUTH BEFORE MEALS AND AT BEDTIME FOR STOMACH PAIN/SPASMS. Recommend bland diet-BRAT diet-Bananas, rice, applesauce, toast. Avoid coffee, alcohol, dairy products, fruit, vegetables, red meat, spicy or fried foods. F/I with GI. Contact [facility] 05/10 for any new, worsening or continued symptoms. 2024-09-08 13:43:08 Estab. patient 10-29 min; 1 minor problem; add add modifier 95 for video, modifier 93 for phoneContinue to see PCP. Follow-up with [facility] as needed for any acute or disease education needs that may arise 05/10.09/05/24: Rx: Dicyclomine 20 mg Tab-TAKE 1 TABLET BY MOUTH BEFORE MEALS AND AT BEDTIME FOR STOMACH PAIN/SPASMS. Recommend bland diet-BRAT diet-Bananas, rice, applesauce, toast. Avoid coffee, alcohol, dairy products, fruit, vegetables, red meat, spicy or fried foods. F/I with GI. Contact [facility] 05/10 for any new, worsening or [...] <80 (3078F)Continue to see PCP. Follow-up with [facility] as needed for any acute or disease education needs that may arise 05/10.10/15/22: pt in need of new order for incontinence supplies- will order per pt's requestsincontinence liners/inserts quantity sufficient for QID sara-care- personal hygiene wipes- hand soap and parlor maid as per prior order- box of medium gloves- to follow up with manager of case and PCP for further monitoring and management [...] if symptoms have not improved. #2 tablet CLb3dQz New Acetaminophen 500 mg Tab 2 tablets orally TID PRN fever/pain #30 tablet WYo8jHr New Nitrofurantoin Macrocrystal 100 mg Cap Take 1 tablet PO twice daily for 5 days. #10 tablet MZf5zZv New Ondansetron 8 mg Tab Disintegrating 1 tablet orally every 8 hours as needed nausea/vomiting #30 tablet RFx0 2024-11-15 14:57:00 New Nystatin [id number] UNIT/GM Crm 1 application topically to affected area 3 times per day #60 g [id number] Diflucan 150 mg Tab Take 1 tablet PO. May take 1 tablet 72 hours later if symptoms have not improved. #3 tablet QNs6Xowsoq up plan for acute symptoms: As neededTelevideo [...] visit:No ER visits or hospitalizations documented in [facility] in 90 days. 2024-11-22 Open HEDIS Measures: No open measures
--- OUTSIDE RECORDS SUMMARY | 2024-11-23 18:54 | XMS_ITS | Clinical Summary ---
Author Organization [email or web address] Address [address] [place] [address] Care Team Providers Care Meter Calibrator Name Role Phone Unavailable Primary Care Provider [...] 4 Active Sodium Fluoride 1.1 % cream [place] teeth for 2 minutes, morning and night. Spit, do not rinse. Do not eat or drink anything for 30 minutes following use. 112 g 3 5 Active Active Problems Problem Noted Date Diagnosed Date Lupus (systemic lupus erythematosus) 07/05/2024 Encounters Date Type Department Care Team Description 10/03/2024 1:00 PM EDT Office Visit [facility] [address] [place] [address] Pancho Butcher, NILA Abrasion of teeth, localized (Primary Dx); Tooth abrasion; Inflammatory lesion of periapical tissue surrounding dental implant ([facility]) 09/28/2024 1:30 PM EDT Office Visit [facility] [address] [place] [address] Erica Tejada DDS 09/01/2024 3:00 PM EDT Office Visit [facility] [address] [place] [address] Erica Tejada DDS 08/23/2024 1:30 PM EDT Office Visit [facility] [address] [place] [address] Raffy Johnston DMD History of tooth extraction, [...] 1:00 PM EDT Office Visit [facility] [address] [place] [address] Health Maintenance Due Date Last Done Comments [...] Relevant to Health Maintenance Insurance DENTAL - [facility]
== END 2024-11-23 16:28 | disposition home or self-care (01) ==
PROVIDERS: PCP Internal Medicine; Visit Provider Physician Assistant Medical
DX: H57.11 Ocular pain, right eye (principal)

== ENCOUNTER → 2024-11-23 16:07 | Outpatient (BNVA) | payer OTHER, SELFPAY | PROVIDERS: PCP Internal Medicine; Visit Provider Physician Assistant Medical | DX: H57.11 Ocular pain, right eye (principal) | CPT/HCPCS: 99212 ==

== ENCOUNTER 2024-12-11 12:59 | Outpatient (AMB) | payer OTHER, SELFPAY ==
--- OUTSIDE RECORDS SUMMARY | 2024-01-07 07:00 | XMS_ITS ---
Author Organization [facility] Address [address] [place] [address] Care Team Providers Care Spiral Gear Generator Name Role Phone Nae LILLY, Osiris Primary Care Provider Alban Gerard Jr REASON FOR VISIT screening Encounters Encounter Location Date Provider Diagnosis [facility] [place] [address] [place] [id number] 01/07/2024 Alban Lopez Jr Colon cancer screening Z12.11 and Family history of colon cancer Z80.0 Assessments Encounter Date Diagnosis (ICD Code) Assessment Notes Treatment Notes Treatment Clinical Notes Section Notes 01/07/2024 Colon cancer screening (ICD-10 - Z12.11) 01/07/2024 Family history of colon cancer (ICD-10 - Z80.0) Plan Of Treatment No Information Progress Notes * PAULETTE SERRANO MDOB:1955 (69 yo F)Acc No.[id number]:01/07/2024 COLON WITH MAC Patient: Eloy HAHN PAULETTE Nam Provider: Melodie Lopez MD :1955 A ge:68 Y S ex:Female Date:01/07/2024 Address:[address] [place], [place] [id number] Pcp:Osiris Soni MD Subjective: * Chief Complaints: [...] 1 Generated for Ye yepez/Jignesh/Morenitasmitting on: 0 12/11/2024 02:13 PM EDT
--- NOTE | 2024-12-11 13:31 | A.OFFVIS_ITS ---
Intake Visit Reasons: 6 Months Allergies prednisone Adverse Reaction (Intermediate, Verified 11/23/24 16:21) Anxiety HPI Comments Details: 69 y/o woman with PTSD, depression, h/o alcohol abuse, SLE, and left leg pain and numbness caused by left L5/S1 and L 4/5 disc disease resulting in mild to moderate spinal stenosis. She was doing good and gabapentin was helping with pain. She is presenting with joint pain and neuropathic pain. She has systemic lupus e rythematosus, which contributes to joint pain, particularly in the legs and back. The pain is more severe in the mornings. Medication management includes Lupitz for lupus and gabapentin for nerve pain, taken as needed. [facility] Medical History (Updated 12/11/24 @ 13:34 by Jeronimo Posey MD) Elevation of levels of liver transaminase levels Eosinophilia Asthma Allergic rhinitis Dyspnea on exertion Restrictive lung disease Venous insufficiency Right carotid bruit Diverticulitis Bipolar 1 disorder GERD (gastroesophageal reflux disease) History of cervical cancer Irritable bowel syndrome with constipation Weak urinary stream Surgical menopause Osteopenia Essential hypertension Dyslipidemia Anxiety Surgical History History of cardiac cath Hx of esophagogastroduodenoscopy Hx of colonoscopy History of partial hysterectomy Family History Father Throat cancer Mother No problems noted. Brother No problems noted. Sister No problems noted. Sister No problems noted. Sister No problems noted. Sister Hyperlipidemia HTN (hypertension) Depression Myocardial infarction Daughter No problems noted. Daughter No problems noted. Daughter No problems noted. Daughter No problems noted. Paternal Aunt Rheumatoid arthritis Other Mental health disorder Substance use disorder Social History Housing: Apartment Alcohol intake: current Alcohol intake frequency: does not drink Alcohol type: wine Patient Tobacco Use Status: Former Tobacco user e-Cigarette/Vaping Use: Never Used Advance Directives Date on File: 01/15/23 service: No Current occupational status: unemployed Cognitive needs: No Hearing needs: No Vision needs: No Review of Systems Const Details: - Musculoskeletal: Reports joint pain in legs and back. - Neurological: Reports neuropathic pain; Denies other neurological symptoms discussed in this visit. - General: Reports severe pain in the morning. Physical Exam Neuro Other: Mental Status: Alert and oriented to person, place, and time. Normal attention. Normal spontaneous speech, fluency, and comprehension. No obvious issues with mood and memory. Affect is appropriate. Cranial Nerves: CN II: Visual osuna full to confrontation, visual acuity intact. CN III, IV, : Pupils equal, round, reactive to light and accommodation. Extraocular movements are normal. CN V: Facial sensation is normal. CN VII: Facial movements symmetrical. CN VIII: Hearing intact to bedside conversation is normal. CN IX, X: Palate elevates symmetrically. CN XI: Shoulder shrug and head turn symmetrical. CN XII: Tongue midline without atrophy or fasciculations. Extrapyramidal: Full facial expressions and blinking. No rigidity. Movements are appropriate with no tremor or abnormality. Speech: Normal; no dysarthria or tremor. Assessment & Plan Assessment & Plan (1) Radiculopathy due to lumbar intervertebral disc disorder: Comment: MRI LS spine at [facility] in August 2023: Mild L5/S1 and mod L4/5 left foraminal stenoses. MRI LS spine at [facility] WO in 2020: L L5/S1 foraminal stenosis NCV/EMG LE No significant abnormality noted in this study. 12/18/21. XR hips at [facility] in Jan 2020: mild b/l DJD NCV/EMG UE 07/11/18 THIS IS AN UNREMARKABLE STUDY.. 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 Code(s): M51.16 - Intervertebral disc disorders with radiculopathy, lumbar region Category: Medical Plan Impression: Chronic back pain in this patient with SLE Rec: Gabapentin 600mg one at bedtime as needed Medications: Changed From gabapentin 1 tab PO DAILY To gabapentin 600 mg PO DAILY PRN 90 tabs 0RF back pain Coding Level of Care Code Est Pt Level 4 (92425) Diagnoses Radiculopathy due to lumbar intervertebral disc disorder M51.16
--- OUTSIDE RECORDS SUMMARY | 2024-12-11 14:13 | XMS_ITS ---
Author Name Jenae Larson NP Address [address] [place] [address] Phone [phone] Organization [facility] Care Team Providers Care Body Care Manager Name Role Phone Jenae Larson Unavailable [phone] Osiris Snoi Unavailable Alban Lopez Unavailable [phone] Reason for Referral Not Available Allergies, adverse reactions, alerts Allergen Type Reaction Severity Status Onset Date Prednisone Allergy to substance (disorder) Unknown Active N/A History of medication use Medication Class Instructions Start Date End Date Fluticasone Propionate 50 MCG/ACT Suspension SPRAY 2 SPRAYS INTO EACH NOSTRIL EVERY DAY 2022-05-13 No Data Available Azelaic Acid 15 % Gel APPLY TO FACE TWICE A DAY 07-28 No Data Available Hydrocortisone 2.5 % Oint APPLY TO INFRA MAMMARIES TWICE DAILY NEEDED FLARES, DECREASE SYMPTOMS IMPROVE 2022-07-28 No Data Available Nitrofurantoin Macrocrystal 100 [...] No Data Available 2022-10 No Data Available Magnesium Oxide -Mg Suppleme nt 500 mg Tab 1 tab once daily 2022-10-15 No Data Available buPROPion 75 mg Tab 1 tab daily 2022-10-15 No Data Available Diclofenac Sodium 1 % Gel BID PRN 2022-10-15 20 06-07-25 EpiCeram Emulsion Twice daily topically 2022-10-15 N o Data Available Ondansetron 8 mg Tab Disintegrating 1 tablet orally every 8 hours as needed nausea 2023-02-03 No Data Available Dicyclomine 20 mg Tab TAKE 1 TABLET BY M OUTH BEFORE MEALS AND AT BEDTIME FOR STOMACH PAIN/SPASMS 2023-02-03 No Data Available Amoxicillin-Pot Clavulanate 875/125 [...] 7 days. 2023-02-23 No Data Available Ipratropium Sumas 0.03 % Solution USE 2 SPRAYS EACH NOSTRILS 1-3 TIMES DAILY 15 MINUTES BEFORE MEALS 2023-05-06 No Data Available Diclofenac Sodium 1 % Gel 4 grams topica lly to affected area 4 times per day PRN 2023-07-09 No Data Available Escitalopram Oxalate 20 mg Tab No Data Available 06-10 No Data Available Triamcinolone Acetonide 0.1 % Oint No Data Available 2022-08-20 No Data Available Hydroxychloroquine Sulfate 2 00 mg Tab TAKE 1 AND 1/2 TABLETS BY MOUTH EVERY DAY 2023-08-19 No Data Available Terazosin 1 mg Cap TAKE 1 CAPSULE BY MO UTH EVERYDAY AT BEDTIME 2023-12-14 No Data Available Sodium Fluoride 5000 PPM 1.1 % Crm APPLY DIRECTED TO TEETH THREE TIMES DAILY 2024-02-16 No Data Available Azithromycin 250 mg Tab TAKE 2 TABLETS B Y MOUTH TODAY, THEN TAKE 1 TABLET DAILY FOR 4 DAYS DIRECTED 2024-04-07 No Data Available levoFLOXacin 500 mg Tab TAKE 1 TABLET BY MOUTH EVERY DAY FOR 7 DAYS 2024-05-03 No Data Available LORazepam 0.5 mg Tab No Data Available 2023-10-07 No Data Available MELATONIN PROLONGED RELEASE 10 MG TBCR No Data Available 2023-02-09 No Data Available Albuterol Sulfate HFA 108 (9 0 Base) MCG/ACT Aerosol Solution INHALE 1 PUFF 4 TIMES A DAY NEEDED FOR SHORTNESS OF BREATH OR WHEEZING FOR 30 DAYS 2024-07-13 No Data Available Azelastine 137 MCG/SPRAY Solution [...] FOR 30 DAYS 2024-10-23 No Data Available Erythromycin 5 mg/GM Oint No Data Available 2024-11-23 No Data Available Hydroxychloroquine Sulfate 3 00 mg Tab Take 1.5 tablets orally daily with food or milk 2024-11-27 No Data Available Problem List Problem Status [...] scheduled2. Take medications as prescribed Frequent falls Inactive 2022-10-15 N/A 10/15/22: [place] st fall a couple weeks ago due to dizziness. Bruise to right leg, no other injuries.1. Keep walking area clear and ensure proper lighting 2. Report dizziness immediately as this can increase of falls3. Follow up with pain and PCP regarding lower back pain h/o Non-ST elevation (NSTEMI) myocardial infarction Active 2022-10-15 N/A Stable10/15/22: LH C done in 09/2022. No interventions.1. F/u with cardiology and or PCP as scheduled2. Complete ECHO as scheduled GastritisUC (ulcerative colitis)GERD (gastroesophageal reflux disease) Active 2022-10-15 N/A Stable- continue plan of care and conservative measures Monitor for acute GI s/sx and continue with GI specialist. eRx New Dicyclomine 20 mg Tab TAKE 1 TABLET BY MOUTH AC/HS for stomach pain/spasms #60 tablet [id number] New Ondansetron 8 mg Tab Disintegrating 1 [...] bladder)Recurrent urinary tract infection Active 2022-10-15 N/A StableMonitor fo r s/sx of UTI and urinary changes and continue with PCP.10/15/22: pt in need of new order for incontinence supplies- will order per pt's requestsincontinence liners/inserts quantity sufficient for QID sara-care- personal hygiene wipes- hand soap and personalized living assistant as per prior order- box of medium gloves- to follow up with nurse case management and PCP for further monitoring and management [...] if symptoms have not improved. #2 tablet [id number] New Acetaminophen 500 mg Tab 2 tablets orally TID PRN fever/pain #30 tablet [id number] New Nitrofurantoin Macrocrystal 100 mg Cap Take 1 tablet PO twice daily for 5 days. #10 tablet [id number] New Ondansetron 8 mg Tab Disintegrating 1 tablet orally every 8 hours as needed nausea/vomiting #30 tablet RFx0 Health maintenance examination Inactive 2023-02-23 N/A colonoscopy next due 01/2024, polyps found, but not cancerous. Hypertension Active 2022-10-15 N/A StableRX: ghosh. Not currently taking any bp medications per member [...] daily02/23/23 BP 134/80 Lupus Active 2023-08-30 N/A StableHYDROXYC HLOROQUINE 200 MG TABf/u with pcp annually Other problems related to medical facilities and other health care Active 2023-08-30 N/A Monthly fo llow up calls with ptCONTINGENCY PLANPlease call [facility] if you have a change in condition, Blood pressure > 170/90Acute illness, change in condition or medication and with any questions about your healthFall, any unusual symptoms or have any medical questions! Vaginal yeast infection Resolved 2023-02-23 2023-08-30 Vaginal yeast in fection symptoms of itchy vaginal area, slightly tender [...] to conditions classified elsewhere Active 2022-10-15 N/A StableRepor ts generalized joint painContinue using current medicationsContinue f/u care and monitoring with PCP and rheuamtology.Previous: 10/15/22: Reports joint pain and reports relief with [...] report early any s/s of infection Sinusitis Inactive 2024-04-11 N/A 04/11/24: Membe r c/o nose [...] 04/14/23 Bipolar II disorder Active 2022-10-15 N/A Stabl eCurrently taking citalopram, bupropion Denies SI/HI Member reports she has suffered a lot of loss, losing her daughter 7 years ago. Reports seeing a psychiatist every 3 months and seeing a therapist routinely.Monitor for severe mood lability, impulsive behaviors, intrusive thoughts, continue using healthy coping mechanisms and continue with PCP.Previous:She worries frequently and current stressor is her [...] with Psychiatry for provider assignment Abdominal pain Inactive 2024-09-05 N/A 09/05/24: Rx: Dicyclomine 20 mg Tab-TAKE 1 TABLET BY MOUTH BEFORE MEALS AND AT BEDTIME FOR STOMACH PAIN/SPASMS. Recommend bland diet-BRAT diet-Bananas, rice, applesauce, toast. Avoid coffee, alcohol, dairy products, fruit, vegetables, red meat, spicy or fried foods. F/I with GI. Contact [facility] 05/10 for any new, worsening or continued symptoms. Encounters Encounters Type Facility Date of Service Diagnosis/Co mplaint No Data Available [facility] Other specified disorders of nose and nasal sinuses No Data Available [facility] ([place] No Data Available [facility] No Data Available [facility] No Data Available [facility] No Data Available [facility] No Data Available [facility] New patient,40-59min; chronic exacerbation, 2 stable chronic or 1 acute illness add add modifier 95 for video (do not use for phone, instead use 76910-90) [facility]2022 Rheumatoid arthritis, unspecifiedUlcerative colitis, unspecified, without complicationsAtopic dermatitis, unspecifiedRash and other nonspecific skin eruptionEssential (primary) hypertensionBipolar II disorderGastritis, unspecified, without bleedingDorsalgia, unspecifiedRetention of urine, unspecifiedRepeated fallsGastro-esophageal reflux disease without esophagitisOld myocardial infarction New patient,40-59min; chronic exacerbation, 2 stable chronic or 1 acute illness add add modifier 95 for video (do not use for phone, instead use 32558-66) [facility]20[place] New patient,40-59min; chronic exacerbation, 2 stable chronic or 1 acute illness add add modifier 95 for video (do not use for phone, instead use 20013-13) [facility] 10[place]20[place] New patient,40-59min; chronic exacerbation, 2 stable chronic or 1 acute illness add add modifier 95 for video (do not use for phone, instead use 58697-03) [facility]20[place] New patient,40-59min; chronic exacerbation, 2 stable chronic or 1 acute illness add add modifier 95 for video (do not use for phone, instead use 56121-03) [facility]20[place] New patient,40-59min; chronic exacerbation, 2 stable chronic or 1 acute illness add add modifier 95 for video (do not use for phone, instead use 28888-13) [facility]20[place] New patient,40-59min; chronic exacerbation, 2 stable chronic or 1 acute illness add add modifier 95 for video (do not use for phone, instead use 38135-54) [facility]20[place] New patient,40-59min; chronic exacerbation, 2 stable chronic or 1 acute illness add add modifier 95 for video (do not use for phone, instead use 37799-21) [facility] No Data Available [facility]20[place] Mononeuropathy, unspecified No Data Available [facility]2023 Essential (primary) hypertensionBipolar II disorderOld myocardial infarctionRheumatoid arthritis, unspecifiedGastritis, unspecified, without bleedingUlcerative colitis, unspecified, without complicationsDorsalgia, unspecifiedAtopic dermatitis, unspecifiedRash and other nonspecific skin eruptionRetention of urine, unspecifiedRepeated fallsGastro-esophageal reflux disease without esophagitisNasal congestionMononeuropathy, unspecified No Data Available [facility] No Data Available [facility] No Data Available [facility] No Data Available [facility] [place] No Data Available [facility] [place] No Data Available [facility] [place]2023 Ulcerative colitis, unspecif ied, without complicationsGastritis, unspecified, without bleedingGastro-esophageal reflux disease without esophagitisRetention of urine, unspecifiedUnspecified urinary incontinenceOveractive bladder No Data Available [facility] 02[place]2023 Acute candidiasis of vulva a nd vaginaEncntr for general adult medical exam w/o abnormal findingsEssential (primary) hypertension No Data Available [facility] [place]20[place] No Data Available [facility] No Data Available [facility] [place] No Data Available [facility] [place] 02[place]2023 No Data Available [facility] 06[place]/2023 Rheumatoid arthritis, unspec ified No Data Available [facility] 07[place]2023 Rheumatoid arthritis, unspec ified No Data Available [facility] [place] 07[place]2023 No Data Available [facility]2023 No Data Available [facility] 07[place]2023 No Data Available [facility] 07[place]13/2023 Rheumatoid arthritis, unspec ified No Data Available [facility] 07[place]13[place]2023 No Data Available [facility] 07[place]13[place]20[place] Estab. patient 30-39min; chronic exacerbation, 2 stable chronic or 1 acute illness add add modifier 95 for video, (do not use for phone, instead use 15439-71) [facility] 08[place]30/2023 Essential (primary) hypertensionBipolar II disorderOld myocardial [...] (do not use for phone, instead use 40428-58) [facility] 08[place]30/20[place] Estab. patient 30-39min; chronic exacerbation, 2 stable chronic or 1 acute illness add add modifier 95 for video, (do not use for phone, instead use 35990-48) [facility] 08/30/2023 Estab. patient 30-39min; chronic exacerbation, 2 stable chronic or 1 acute illness add add modifier 95 for video, (do not use for phone, instead use 82815-53) [facility] ([place] 08[place]30/2023 Estab. patient 30-39min; chronic exacerbation, 2 stable chronic or 1 acute illness add add modifier 95 for video, (do not use for phone, instead use 12766-38) [facility] [place] 08/30/2023 Estab. patient 30-39min; chronic exacerbation, 2 stable chronic or 1 acute illness add add modifier 95 for video, (do not use for phone, instead use 87284-98) [facility] 08[place]20[place] Estab. patient 30-39min; chronic exacerbation, 2 stable chronic or 1 acute illness add add modifier 95 for video, (do not use for phone, instead use 99657-30) [facility] 08[place]/20[place] Estab. patient 30-39min; chronic exacerbation, 2 stable chronic or 1 acute illness add add modifier 95 for video, (do not use for phone, instead use 58095-01) [facility] 08[place]30/20[place] Estab. patient 30-39min; chronic exacerbation, 2 stable chronic or 1 acute illness add add modifier 95 for video, (do not use for phone, instead use 52983-19) [facility] 08[place]2023 Estab. patient 30-39min; chronic exacerbation, 2 stable chronic or 1 acute illness add add modifier 95 for video, (do not use for phone, instead use 18032-12) [facility] 08[place]20[place] Estab. patient 10-29min; 1 minor problem; add add modifier 95 for video, modifier 93 for phone [facility] 04[place]/2024 Chronic sinusitis, unspecifi ed Estab. patient 10-29min; 1 minor problem; add add modifier 95 for video, modifier 93 for phone [facility] 04/11/20[place] Estab. patient 10-29min; 1 minor problem; add add modifier 95 for video, modifier 93 for phone [facility] 04/11/20[place] Estab. patient 10-29min; 1 minor problem; add add modifier 95 for video, modifier 93 for phone [facility] 04/11/2024 Estab. patient 10-29min; 1 minor problem; add add modifier 95 for video, modifier 93 for phone [facility] 04/14/2024 Essential (primary) hypertensionBipolar II disorderOld [...] 95 for video, modifier 93 for phone [facility]/14/[place] Estab. patient 10-29min; 1 minor problem; add add modifier 95 for video, modifier 93 for phone [facility] 04/14/20[place] Estab. patient 10-29min; 1 minor problem; add add modifier 95 for video, modifier 93 for phone [facility] 04/14/20[place] Estab. patient 10-29min; 1 minor problem; add add modifier 95 for video, modifier 93 for phone [facility] [place] 04/14/2024 Estab. patient 10-29min; 1 minor problem; add add modifier 95 for video, modifier 93 for phone [facility] [place] 04/14/2024 Estab. patient 10-29min; 1 minor problem; add add modifier 95 for video, modifier [address] [facility] [place] 05[place]09/2024 Acute candidiasis of vulva a nd vagina Estab. patient 10-29min; 1 minor problem; add add modifier 95 for video, modifier 93 for [facility] [place] 07/19/2024 Acute upper respiratory infe ction, unspecified Estab. patient 10-29min; 1 minor problem; add add modifier 95 for video, modifier 93 for phone [facility] [place] 07/19/20[place] Estab. patient 10-29min; 1 minor problem; add add modifier 95 for video, modifier [address] [facility] [place] 07/19/20[place] Estab. patient 10-29min; 1 minor problem; add add modifier 95 for video, modifier [address] [facility] [place]/05/[place]24 Unspecified abdominal pain Estab. patient 10-29min; 1 minor problem; add add modifier 95 for video, modifier [address] [facility] [place]/05[place] Estab. patient 10-29min; 1 minor problem; add add modifier 95 for video, modifier [address] [facility] [place] 09/05/20[place] Estab. patient 10-29min; 1 minor problem; add add modifier 95 for video, modifier 93 for phone [facility] [place] 09/08/2024 Unspecified abdominal painOt her problems related to medical facilities and other health care Estab. patient 10-29min; 1 minor problem; add add modifier 95 for video, modifier 93 for phone [facility] 09/08/2024 Retention of urine, unspecifiedUnspecified urinary incontinenceOveractive bladderUrinary tract infection, site not specified Estab. patient 10-29min; 1 minor problem; add add modifier 95 for video, modifier 93 for phone [facility] [place]/08/20[place] Estab. patient 10-29min; 1 minor problem; add add modifier 95 for video, modifier 93 for phone [facility] [place] 09/08/2024 Estab. patient 10-29min; 1 minor problem; add add modifier 95 for video, modifier 93 for phone [facility] [place] 11/15/2024 Candidiasis, unspecified Estab. patient 10-29min; 1 minor problem; add add modifier 95 for video, modifier 93 for phone [facility] [place] 11/22/2024 Candidiasis, unspecified Estab. patient 10-29min; 1 minor problem; add add modifier 95 for video, modifier 93 for phone [facility] [place]27/2024 Essential (primary) hypertensionBipolar II disorderOld myocardial infarctionRheumatoid arthritis, unspecifiedImmunodeficiency due to conditions classified elsewhereGastritis, unspecified, without bleedingUlcerative colitis, unspecified, without complicationsGastro-esophageal reflux disease without esophagitisDorsalgia, unspecifiedSystemic lupus erythematosus, unspecifiedOther problems related to medical facilities and other health care Estab. patient 10-29min; 1 minor problem; add add modifier 95 for video, modifier 93 for phone [facility] [place]/27/20[place] Estab. patient 10-29min; 1 minor problem; add add modifier 95 for video, modifier 93 for phone [facility] [place] Estab. patient 10-29min; 1 minor problem; add add modifier 95 for video, modifier 93 for phone [facility] [place]/27/20[place] Estab. patient 10-29min; 1 minor problem; add add modifier 95 for video, modifier 93 for phone [facility] [place]/27/20[place] Estab. patient 10-29min; 1 minor problem; add add modifier 95 for video, modifier 93 for phone [facility] [place]20[place] Estab. patient 10-29min; 1 minor problem; add add modifier 95 for video, modifier 93 for phone [facility] [place]/27/20[place] Estab. patient 10-29min; 1 minor problem; add add modifier 95 for video, modifier 93 for phone [facility] [place]/27/20[place] Estab. patient 10-29min; 1 minor problem; add add modifier 95 for video, modifier 93 for phone [facility] [place]20[place] Estab. patient 10-29min; 1 minor problem; add add modifier 95 for video, modifier 93 for phone [facility] [place] 11/[place]2024 Vital Signs Date of Collection Vitals 2022-10-20 [...] /minO2 % BldC Oximetry - 98.0 % 2024-11-27 08:48:11 Height - 165.1 cmWei ght - 64.86 kgBody Mass Index (BMI) - 23.8 kg/m2BP Diastolic - 57.0 mm[Hg]BP Systolic - 142.0 mm[Hg]Pain Scale - 8.0 {score} Social History Sex Female History of Procedures Procedures Service Procedure code Service date Servicing provider Phone# No Data Available [id number] 2022-10-20 No Data Available No Data Available [...] (do not use for phone, instead use [id number]) [id number] 2022-10-15 No Data Available No Data Availa [...] No Data Avail able No Data Available [id number] 2023-01-05 No Data Available No Data Available No Data Available [id number] 2023-01-16 No Data Available No Data Available [...] Available No Data Available No Data Available [id number] 2023-07-09 No Data Available No Data Available [...] (do not use for phone, instead use 85820-19) [id number] 2023-08-30 No Data Available No Data Availa [...] 95 for video, modifier 93 for phone 20090 2024-04-12 No Data Available No Data Availa ble No Data Available 1159 2024-04-12 No Data Available No Data Available SBP >= 140 3077F 2024-04-12 No Data Available No Data Available DBP <80 (3078F) 3078F 2024-04-12 No Data Available No Data Available Estab. patient 10-29min; 1 minor problem; add add modifier 95 for video, modifier 93 for phone [id number] 2024-04-14 No Data Available No Data Availa [...] 95 for video, modifier 93 for phone 2024-05-09 No Data Available No Data Availa ble Estab. patient 10-29min; 1 minor problem; add add modifier 95 for video, modifier 93 for phone 2024-07-19 No Data Available No Data Availa ble SBP < 130 (3074F) 4F 2024-07-19 No Data Available No Data Available DBP <80 (3078F) 3078F 2024-07-19 No Data Available No Data Available Estab. patient 10-29min; 1 minor problem; add add modifier 95 for video, modifier 93 for phone [id number] 2024-09-05 No Data Available No Data Availa ble SBP >= 140 3077F 2024-09-05 No Data Available No Data Available DBP <80 (3078F) 8F 2024-09-05 No Data Available No Data Available Estab. patient 10-29min; 1 minor problem; add add modifier 95 for video, modifier 93 for phone 2024-09-08 No Data Available No Data Availa ble Estab. patient 10-29min; 1 minor problem; add add modifier 95 for video, modifier 93 for phone 2024-09-09 No Data Available No Data Availa ble SBP >= 140 3077F 2024-09-09 No Data Available No Data Available DBP <80 (3078F) 8F 2024-09-09 No Data Available No Data Available Estab. patient 10-29min; 1 minor problem; add add modifier 95 for video, modifier 93 for phone 2024-11-15 No Data Available No Data Availa ble Estab. patient 10-29min; 1 minor problem; add add modifier 95 for video, modifier 93 for phone 2024-11-22 No Data Available No Data Availa ble Estab. patient 10-29min; 1 minor problem; add add modifier 95 for video, modifier 93 for phone 2024-11-27 No Data Available No Data Availa ble Medication List Documented (1159F) 1159F 2024-11-27 No Data Available No Data Anastacia ilable Medication Review by prescribing provider or pharmacist documented (1160F) 1160F 2024-11-27 No Data Available No Data Anastacia ilable Functional Status Assessed (1170F) 1170F 2024-11-27 No Data Available No Data Avail able Advance Care Directive Advance care planning discussion documented in the medical record (1158F) 1158F 2024-11-27 No Data Available No Data Availa ble Advance care planning discussed and documented advance care plan or surrogate decision-maker was documented in the medical record. (1123F) 1123F 2024-11-27 No Data Available No Data Availa ble Pain Assessment - NO pain present (1126F) 1126F 2024-11-27 No Data Available No Data A vailable BMI obtained (3008F) 3008F 2024-11-27 No Data Availab le No Data Available SBP >= 140 3077F 2024-11-27 No Data Available No Data Available Pain Assessment - Pain Documented on a Pain Scale (1125F) 1125F 2024-11-27 No Data Available No Data Anastacia ilable Functional Status Functional Category Effective Dates Cognition [...] you worry about falling? No 2023-08-14 7 Do you feel unsteady on your feet? No 05-09-16 DME used with ambulation: [facility] 2023-08-14 7 Near falls within the last 6 months? yes 2024-11-27 Social Supports - # of Inter actions with Friends/Family in a typical week: daily 2023-08-30 Mental Status Status Date alert and oriented x3 2023-08-30 Assessments Date of Service Assessments 2022-10-20 13:56:36 Follow up plan for [place] symptoms: 2022-10-15 08:06:00 HypertensionMajor de pressive, Bipolar [...] directed, good hygiene, wear breathable clothing. Call 05/10 with fever, abdominal pain, discharge, dysuria. 2024-11-22 06:05:49 Yeast infection 2024-11-27 08:48:11 Other problems relat ed to medical facilities and other health careHypertensionBipolar II disorderh/o Non-ST elevation (NSTEMI) myocardial infarctionRheumatoid arthritis with Immunodeficiency due to conditions classified elsewhereGastritisUC (ulcerative colitis)GERD (gastroesophageal reflux disease)Back painAtopic eczemaUrinary retentionUrinary incontinence-OAB (overactive bladder)Recurrent urinary tract infectionLupus Plan of Care Date of Service Plans [...] >= 140Continue to see PCP. Follow-up with [facility] as [...] as directed by PM- Apt. 01/25 scheduled already2023-01-16 13:22:08 Phone (patient, pare nt, or guardian); [...] stool max 4 times daily #30 capsule NHl5jVu New Dicyclomine 20 mg Tab TAKE 1 TABLET BY MOUTH AC/HS for stomach pain/spasms #60 tablet XVz2wRs New Ondansetron 8 mg Tab Disintegrating 1 [...] sara-care- personal hygiene wipes- hand soap and personalized living assistant as per prior order- box of medium gloves- to follow up with nurse case management and PCP for further monitoring and management hx: 10/15/22: Reports urinary retention and managed with Flomax1. Dz management discussed2. Continue to follow up with PCP 2023-02-23 11:16:05 New Diflucan 150 mg Tab Take 1 tablet PO. May take 1 tablet 72 hours later if symptoms have not improved. #2 tablet NIi8Ksd Miconazole Nitrate 2 % Crm Vaginal Apply to affected area daily x 7 days. #1 applicator NRp8Yumqu (patient, parent, or guardian); 11-20 minutes of [...] that may arise 2023-07-09 12:04:19 Phone (patient, pare nt, or [...] with Psychiatry for provider assignment10/15/22: [facility] done in 09/2022. No interventions.1. F/u [...] for and report early any s/s of kttiwkxhr42/22/23- continue plan of care and conservative measures eRx New Loperamide 2 mg Cap 2 tablets after first loose stool, then take 1 tablet after each loose stool max 4 times daily #30 capsule LMh5aWz New Dicyclomine 20 mg Tab TAKE 1 TABLET BY MOUTH AC/HS for stomach pain/spasms #60 tablet ONl3bKy New Ondansetron 8 mg Tab Disintegrating 1 [...] sara-care- personal hygiene wipes- hand soap and personalized living assistant as per prior order- box of medium gloves- to follow up with nurse case management and PCP for further monitoring and management [...] they most likely to go back?Please call [facility] if you have a change in [...] for phoneContinue to see PCP. Follow-up with [facility] as needed for any acute or [...] for and report early any s/s of ojdxyksvz88/22/23- continue plan of care and conservative measures eRx New Loperamide 2 mg Cap 2 tablets after first loose stool, then take 1 tablet after each loose stool max 4 times daily #30 capsule JKq6qMr New Dicyclomine 20 mg Tab TAKE 1 TABLET BY MOUTH AC/HS for stomach pain/spasms #60 tablet XMq1yEe New Ondansetron 8 mg Tab Disintegrating 1 [...] sara-care- personal hygiene wipes- hand soap and personalized living assistant as per prior order- box of medium gloves- to follow up with nurse case management and PCP for further monitoring and management [...] they most likely to go back?Please call [facility] if you have a change in [...] for phoneContinue to see PCP. [facility] any acute or disease education needs that may arise 05/10.Diflucan 150 mg Tab Take 1 tablet PO. May take 1 tablet 72 hours later if symptoms have not improved. #2 tablet SLw2Iipkqg underwearNotify for persistant symptoms. 2024-07-19 09:11:42 Televideo 10-29min; 1 minor problem; add add modifier 95 for video, modifier 93 for phoneContinue to see PCP. Follow-up with [facility] as needed for any acute or disease education needs that may arise 05/10.Amoxicillin-Pot Clavulanate 875/125 mg Tab Take 1 tablet PO twice daily for 7 days #14 tablet LOn9Xpvxwu to tolerate prednisoneEnc use of alb inhaler [...] or fried foods. F/I with GI. Contact [facility] 05/10 for any new, worsening or continued symptoms. 2024-09-08 13:43:08 Estab. patient 10-29 min; 1 minor problem; add add modifier 95 for video, modifier 93 for phoneContinue to see PCP. Follow-up with [facility] as needed for any acute or disease education needs that may arise 05/10.09/05/24: Rx: Dicyclomine 20 mg Tab-TAKE 1 TABLET BY MOUTH BEFORE MEALS AND AT BEDTIME FOR STOMACH PAIN/SPASMS. Recommend bland diet-BRAT diet-Bananas, rice, applesauce, toast. Avoid coffee, alcohol, dairy products, fruit, vegetables, red meat, spicy or fried foods. F/I with GI. Contact [facility] 05/10 for any new, worsening or continued symptoms.Monthly follow up calls with ptCONTINGENCY PLANWhy was the member in the hospital or ER most recently? Why are they most likely to go back?Please call [facility] if you have a change in condition, Blood pressure > 170/90Acute illness, change in condition or medication and with any questions about your healthFall, any unusual symptoms or have any medical questions! 2024-09-08 19:25:40 Televideo 10-29min; 1 minor problem; add add modifier 95 for video, modifier 93 for phoneSBP >= 140DBP <80 (3078F)Continue to see PCP. Follow-up with [facility] as needed for any acute or disease education needs that may arise 05/10.10/15/22: pt in need of new order for incontinence supplies- will order per pt's requestsincontinence liners/inserts quantity sufficient for QID sara-care- personal hygiene wipes- hand soap and personalized living assistant as per prior order- box of medium gloves- to follow up with nurse case management and PCP for further monitoring and management [...] if symptoms have not improved. #2 tablet ZHb5rXc New Acetaminophen 500 mg Tab 2 tablets orally TID PRN fever/pain #30 tablet LWu6vQj New Nitrofurantoin Macrocrystal 100 mg Cap Take 1 tablet PO twice daily for 5 days. #10 tablet XBb2kQl New Ondansetron 8 mg Tab Disintegrating 1 tablet orally every 8 hours as needed nausea/vomiting #30 tablet RFx0 2024-11-15 14:57:00 New Nystatin 620351 UNIT/GM Crm 1 application topically to affected area 3 times per day #60 g MMy1Svmjof Diflucan 150 mg Tab Take 1 tablet PO. May take 1 tablet 72 hours later if symptoms have not improved. #3 tablet TIz1Oprumk up plan for acute symptoms: As neededTelevideo [...] 05/10 with fever, abdominal pain, discharge, dysuria. 2024-11-27 08:48:11 Medication Review by prescribing provider or pharmacist documented (1160F)Medication List Documented (1159F)Functional Status Assessed (1170F)Advance Care Directive Advance care planning discussion documented in the medical record (1158F)SBP >= 140DBP <80 (3078F)Advance care planning discussed and documented advance care plan or surrogate decision-maker was documented in the medical record. (1123F)Pain Assessment - Pain Documented on a Pain Scale (1125F)Estab. patient 20-29min; 1 stable chronic or 2 minor; add add modifier 95 for video, modifier 93 for phoneBMI obtained (5168F)Continue to see PCP. Follow-up with [facility] as needed for any acute or disease education needs that may arise.Monthly follow up calls with ptCONTINGENCY PLANPlease call [facility] if you have a change in condition, Blood pressure > 170/90Acute illness, change in condition or medication and with any questions about your healthFall, any unusual symptoms or have any medical questions!StableRX: denies. Not currently taking any bp medications per member as she reports most readings "good . Exact readings by member could not be recalled.1. Encouraged to contact CB for early signs of CHF including dyspnea, fatigue, cough, edema/weight gain. Notify for a gain of more than 2-3lbs in 1 day or more than 5 pounds in 1 week.2. Encourage to limit dietary sodium3. Weigh daily02/23/23 BP 134/80StableCurrently taking citalopram, bupropion Denies SI/HI Member reports she has suffered a lot of loss, losing her daughter 7 years ago. Reports seeing a psychiatist every 3 months and seeing a therapist routinely.Monitor for severe mood lability, impulsive behaviors, intrusive thoughts, continue using healthy coping mechanisms and continue with PCP.Previous:She worries frequently and current stressor is her [...] sessions3. Follow up with Psychiatry for provider assignmentStable10/15/22: [facility] done in 09/2022. No interventions.1. F/u with cardiology and or PCP as scheduled2. Complete ECHO as scheduledStableReports generalized joint painContinue using current medicationsContinue f/u care and monitoring with PCP and rheuamtology.Previous: 10/15/22: Reports joint pain and reports relief with [...] for and report early any s/s of infectionStable- continue plan of care and conservative measures Monitor for acute GI s/sx and continue with GI specialist. eRx New Dicyclomine 20 mg Tab TAKE 1 TABLET BY MOUTH AC/HS for stomach pain/spasms #60 tablet JPl6xIb New Ondansetron 8 mg Tab Disintegrating 1 [...] gel for body. Symptoms managed with current treatment.StableMonitor for s/sx of UTI and urinary changes and continue with PCP.10/15/22: pt in need of new order for incontinence supplies- will order per pt's requestsincontinence liners/inserts quantity sufficient for QID sara-care- personal hygiene wipes- hand soap and personalized living assistant as per prior order- box of medium gloves- to follow up with nurse case management and PCP for further monitoring and management [...] if symptoms have not improved. #2 tablet TSt2hEs New Acetaminophen 500 mg Tab 2 tablets orally TID PRN fever/pain #30 tablet QTh7aRv New Nitrofurantoin Macrocrystal 100 mg Cap Take 1 tablet PO twice daily for 5 days. #10 tablet JTp7dBl New Ondansetron 8 mg Tab Disintegrating 1 tablet orally every 8 hours as needed nausea/vomiting #30 tablet RTn8EcpybbMFEMODIVIPIAAJBLYM 200 MG TABf/u with pcp annually Goals Date Goal 2022-10-20 do a NS [...] up appointments with established PCP and Specialist. 2024-11-27 Remember to adhere t o dietary and lifestyle interventions as discussed. 2024-11-27 Contact CB if abhijeetmesfin mandag health related concerns. 2024-11-27 Continue f/u care an d monitoring with PCP. Health Concerns Date Concern 2024-11-27 Patient/Guardian parul hurtado to visit via telehealth. Today, patient has chief complaint of: annual visit.Visit completed via:[x] audio and videoInformed verbal consent was obtained from this patient to communicate and provide care using virtual and other telecommunications tools. This patient has been explained the risks, if any, related to the encounter. I explained that care provided through video or audio communication cannot replace the need for physical examination or an in-person visit for some disorders or urgent problems. 2024-11-27 Concerns for today's visit:No acute concerns or needs.Reviewed allergies, medications, active medical conditions, past medical and surgical history, social history. 2024-11-27 Most recent hospital stay or ER visit:No ER visits or hospitalizations documented in [facility] in last year.Member denies ER visits or hospitalizations in last year.Discussed our goal of helping the member have more days at home rather than in the ER or the hospital. 2024-11-27 Advance Care Planchencho santos ConversationDate of Conversation: 11/27/2024Life Limiting Diagnosis: Diagnosis: LupusCurrently on Hospice NoCode Status: YES CPR: Attempt ResuscitationGoals of Care: Yes to CPR and Curative Treatments: Attempt to sustain life by all medically effective meansNutrition goals: No decision made about nutrition today; not discussedDo you have a Durable Power of Fire Warden for Healthcare, or Healthcare Proxy Or Guardianship? Yes, preferred proxy but not named POAIf so, Who? Coral Minor (Daughter) & Bernard Roach (partner)Do you have a written Advance Directive? Has no formal [id number] : AD or surrogate was documented in the medical record. 2024-11-27 Functional Assessmen tADL: Bathing Needs Assistance , Dressing Independent , Eating Independent , Ambulation Independent , Transferring Independent and Toileting IndependentIADL: Medication Needs Assistance , Meal Prep Needs Assistance , Shopping Needs Assistance , Driving or Public Transport Needs Assistance , Housework Needs Assistance , Finances IndependentDo you worry about falling? No.Near falls within the last 6 months? yesDo you feel unsteady on your feet? NoDME used with ambulation: CaneSocial Supports - # of Interactions with Friends/Family in a typical week: daily
--- OUTSIDE RECORDS SUMMARY | 2024-12-11 14:13 | XMS_ITS | Clinical Summary ---
Author Organization [facility] Address [address] [place], [place] [id number] Phone Care Team Providers Care State Attorney Name Role Phone Osiris Soni MD Primary [...] ACO ACO [facility]CO [facility] Care Teams State Attorney Relationship Specialty Start Date End Date Osiris Soni MD [address] [facility] [place] [address] PCP - General Internal Medicine 06/03/17 Additional Source Comments The information contained in this document represents components of the legal health record. It is not the complete legal health record.[facility]
--- OUTSIDE RECORDS SUMMARY | 2024-12-11 14:14 | XMS_ITS | Patient Health Record ---
Author Organization [facility] Address [address] [place] [address] Care Team Providers Care Manager Test Name Role Phone Osiris Soni MD Primary Care Provider Alban Gerard Jr Unavailable [phone] Allergies No Known Allergies Reason For [...] ORALLY DAILY Oral for 90 Active Ipratropium [place] 0.03 % USE 2 SPRAYS EACH NOSTRILS [...] Problem Status W/U Status Risk Notes Problem 224402038 Colon cancer screening (Z12.11) Active confirmed Problem 228485007 Gastro-esophage al reflux disease without esophagitis (K21.9) Active confirmed Problem 202109842 Generalized abdominal pain (R10.84) Active confirmed Problem 15302293 Other dysphagia (R13.19) Active confirmed Problem Dysphagia (91469417) Dysphagia (R13.10) Active confirmed Problem 31183452 Constipation, unspecified constipation type (K59.00) Active confirmed Problem Gastritis (5242967) Gastritis (K29.70) Active confirmed Problem 03878494 Diarrhea, unspecified type (R19.7) Active confirmed Problem Gastroesophageal reflux disease (963828101) Esophageal reflux disease (K21.9) Active confirmed Problem 67180328 Gastric intestinal metaplasia (K31.A0) Active confirmed Encounters Encounter Location Date Provider Diagnosis [facility] Outpatient [address] [place] [address] [phone] 01/07/2024 Alban Lopez Jr Colon cancer screening Z12.11 and Family history of colon cancer Z80.0 Assessments Encounter Date Diagnosis (ICD Code) Assessment Notes Treatment Notes Treatment Clinical Notes Section Notes 01/07/2024 Colon cancer screening (ICD-10 - Z12.11) 01/07/2024 Family history of colon cancer (ICD-10 - Z80.0) Plan Of Treatment Pending Test Test Name [...] Insured Coverage Start Date Coverage End Date [facility] [address] [address] [place] [address] [id number] PAULETTE SERRANO Self - patient is the insured MEDICAID OF [facility] [address] [place] [phone] [id number] PAULETTE SERRANO Self - patient is the insured Medical (General) History Medical History History ICD Code Hypertension bipolar disorder GERD, upper endoscopy 3, gastric intestinal metaplasia at one site, 2-3 year followup diverticulitis arthritis neuropathy Colonoscopy 01/31 benign cecal polyp, te n-year followup lupus Surgical History Surgery Date(Month/Year) hysterectomy 1985
--- OUTSIDE RECORDS SUMMARY | 2024-12-11 14:14 | XMS_ITS | Encounter Summary ---
Author Organization [facility] Address [address] [place] [address] Phone Care Team Providers Care Education And Outreach Coordinator Name Role Phone Osiris Soni MD Primary Care Provider Encounter Details Date Type Department Care Team (Late st Contact Info) Description 06/03/2017 Ancillary [facility] [address] [place] [address] Donte Chris DO [address] [place] [address] Palpitations Social History Tobacco Use Types Packs/Day [...] Palpitations documented in this encounter Care Teams Education And Outreach Coordinator Relationship Specialty Start Date End Date Osiris Soni MD [facility] [place] [address] PCP - General Internal Medicine 06/03/17 documented as of this encounter Additional Source Comments The information contained in this document represents components of the legal health record. It is not the complete legal health record.[facility]
== END 2024-12-11 13:39 | disposition home or self-care (01) ==
LOC: HO.HSM 13:00
PROVIDERS: PCP Internal Medicine; Referring Provider Internal Medicine; Visit Provider Psychiatry & Neurology Neurology
DX: M51.16 Intervertebral disc disorders with radiculopathy, lumbar region (principal)
CPT/HCPCS: 99214

== ENCOUNTER → 2024-12-11 12:59 | Outpatient (BNVA) | payer OTHER, SELFPAY | PROVIDERS: PCP Internal Medicine; Referring Provider Internal Medicine; Visit Provider Psychiatry & Neurology Neurology | DX: M51.16 Intervertebral disc disorders with radiculopathy, lumbar region (principal); M32.9 Systemic lupus erythematosus, unspecified; G89.29 Other chronic pain | CPT/HCPCS: 99212 ==

== ENCOUNTER 2024-12-26 14:19 | Outpatient (AMB) | payer OTHER, SELFPAY ==
--- OUTSIDE RECORDS SUMMARY | 2024-01-07 07:00 | XMS_ITS ---
Author Organization [facility] Address [address] [place] [address] Care Team Providers Care Toy Mechanic Name Role Phone Nae LILLY, Osiris Primary Care Provider Alban Gerard Jr [phone] REASON FOR VISIT screening Encounters Encounter Location Date Provider Diagnosis [facility] [place] Outpatient [address] [place] [phone] 01/07/2024 Alban Lopez Jr Colon cancer screening Z12.11 and Family history of colon cancer Z80.0 Assessments Encounter Date Diagnosis (ICD Code) Assessment Notes Treatment Notes Treatment Clinical Notes Section Notes 01/07/2024 Colon cancer screening (ICD-10 - Z12.11) 01/07/2024 Family history of colon cancer (ICD-10 - Z80.0) Plan Of Treatment No Information Progress Notes * PAULETTE SERRANO MDOB:1955 (69 yo F)Acc No.[id number]:01/07/2024 COLON WITH MAC Patient: Eloy HAHN PAULETTE Nam Provider: Melodie Lopez MD :1955 A ge:68 Y S ex:Female Date:01/07/2024 Address:[address] [place], [place] [phone] Pcp:Osiris Soni MD Subjective: * Chief Complaints: [...] Date: 1 Generated for Ye yepez/Jignesh/Morenitasmitting on: 05:19 PM EDT
--- OUTSIDE RECORDS SUMMARY | 2024-12-18 10:00 | XMS_ITS | Encounter Summary ---
Author Organization [facility] Address [address] [place] [address] Care Team Providers Care Refrigerator Tester Name Role Phone Unavailable Primary Care Provider Unavailabl e Encounter Details Date Type Department Care Team (Late st Contact Info) Description 12/18/2024 10:00 AM EDT Office Visit [facility] [address] [place] [address] Pancho Butcher DDS [address] [place] [address] Social History Tobacco Use Types Packs/Day Years Used Date Smoking Tobacco: Former Cigarettes Passive Smoke Exposure: Never Smokeless Tobacco: Never Comments Unknown Sex and Gender Information Value Date Recorded Sex Assigned at Female 01/12/2022 10:17 AM EDT Legal Sex Female 10:17 AM EDT Gender Identity Male 01/12/2022 10:17 AM EDT Sexual Orientation Straight 01/12/2022 10 :17 AM EDT documented as of this encounter Progress Notes * Pancho Butcher DDS - 12/18/2024 10:00 AM EDT Dental procedures in this visit D9999.5 - NO CHARGE PROCEDURE (Completed) Service provider: Pancho Butcher DDS Billing provider: Temo Castle DDS Patient ID: Jessa Minor is a 69 y.o. adult. Time Out: Date: 12/18/2024 Location: [facility] Tooth: #11 Procedure: Patient Self Dismissed Verified the above with patient, guest services assistant, and provider. Confirmed via patient's chart, intraorally and by radiographs. Community Health Program Coordinator: not applicable 69 y.o. y/o adult presents for limited exam with Dr. Pancho Butcher DDS Medical history: Not Reviewed in EHR Vitals: There were no vitals taken for this visit. Allergies: Not Reviewed in EHR Medications: Not Reviewed in EHR Discussion: Patient was scheduled for RCT #11 @ 10:00 am, stated that her ride was scheduled to come at 11:00 am and that she would rather reschedule. NV: RCT #11. Provider: Dr. Pancho Butcher DDS Dental Inspector Motor Vehicles: Daron Trammell Attending: Dr. Castle * Temo Castle DDS - 12/18/2024 10:00 AM EDT Reviewed. Temo Castle DDS documented in this encounter Plan of Treatment Upcoming Encounters Date Type Department Care Team (Late st Contact Info) Description 01/01/2025 8:00 AM EDT Office Visit [facility] [address] [place] [address] Pancho Butcher DDS [address] [place] [address] documented as of this encounter Procedures Procedure Name Priority Date/Time Associated Diagnosis Comments NO CHARGE PROCEDURE Routine 12/18/2024 10:00 AM EDT documented in this encounter Visit Diagnoses Not on filedocumented in this encounter
[2024-12-26 14:41] VITALS: BP 170/70; PULSE 89; O2SAT 99; BMI 25.5
--- NOTE | 2024-12-26 14:41 | MHC.OFFVIS ---
Vital Signs 12/26/24 14:41 Height 5 ft 4 in Weight 148 lb 12.992 oz BMI 25.5 BP 170/70 H Blood Pressure Location Lt brachial Position Sitting Pulse 89 Pulse Source Pulse Oximeter Pulse Oximetry (%) 99 Oxygen Delivery Method Room Air Intake Visit Reasons: copd Intake Note: pt is here for follow up and states her voice is hoarse today, and she feels little off today, cough is better since last visit with new inhaler Extension Service Agent Required: No Jump Roll Operator: Jump Roll Operator offered & declined Allergies prednisone Adverse Reaction (Intermediate, Verified 12/26/24 14:56) Anxiety Medication List - Last Reconciled 12/26/24 by Price Elmore MD albuterol sulfate 90 mcg/actuation 1 inh inhalation QID PRN 30 days bupropion HCl 1 tab PO DAILY diclofenac sodium 1% 2 grams topical BID PRN dicyclomine 20 mg PO QID erythromycin 0.5 inches ophthalmic (eye) QID escitalopram oxalate 10 mg PO DAILY@1300 PRN estradiol 0.01%(0.1mg/gram) vaginally 3 times a week; pea sized amount to urethra 3 times a week 30 days fluticasone furoate-vilanterol 100-25 mcg/dose (Breo Ellipta) 1 inh inhalation DAILY 30 days gabapentin 600 mg PO DAILY PRN geriatric [id number] (Centravites 50 Plus tablet) 1 tab PO DAILY hydroxychloroquine 300 mg (1.5 x 200 mg) PO DAILY 90 days hyoscyamine sulfate 0.125 mg PO BID PRN leg brace (Knee Support Brace) As directed Hinged knee brace right Dx: osteoarthritis lorazepam 0.5 mg PO DAILY PRN melatonin 10 mg PO BEDTIME PRN nystatin 1 appl topical DAILY ondansetron 8 mg PO TID terazosin 1 mg PO BEDTIME 30 days Do you need a note to return to daycare/school/sports/work: No HPI HPI copd: Details: THIS 69 YEARS OLD FEMALE, COMES FOR FOLLOW-UP AFTER 2 MONTHS. HER MAIN COMPLAINT WAS FREQUENT BOUTS OF COUGH, STARTED ON BREO 100-25 ONCE A DAY FOR POSSIBILITY OF COUGH VARIANT ASTHMA. SHE SAY IS THAT SHE HAS HAD NO MORE COUGH AND NO WHEEZING. HOWEVER EVERY NOW AND THEN SHE HAS SOME SHORTNESS OF BREATH. AND SOME HOARSENESS. ( PROBABLY DUE TO INTERMITTENT ALLERGIES ) RECENTLY HAD A BARIUM SWALLOW ON 11/22/2024, AND SHE WANTED TO HAVE THE RESULTS, WHICH I HAVE EXPLAINED TO HER NO BLOCKAGE, TRANSIENT HOLD UP OF BARIUM TABLET IN MID ESOPHAGUS PROBABLY DUE TO MUSCULAR SPASM SHE IS RELIEVED TO HEAR THAT [facility] Medical History Elevation of levels of liver transaminase levels Eosinophilia Asthma Allergic rhinitis Dyspnea on exertion Restrictive lung disease Venous insufficiency Right carotid bruit Diverticulitis Bipolar 1 disorder GERD (gastroesophageal reflux disease) History of cervical cancer Irritable bowel syndrome with constipation Weak urinary stream Surgical menopause Osteopenia Essential hypertension Dyslipidemia Anxiety Surgical History History of cardiac cath Hx of esophagogastroduodenoscopy Hx of colonoscopy History of partial hysterectomy Family History Father Throat cancer Mother No problems noted. Brother No problems noted. Sister No problems noted. Sister No problems noted. Sister No problems noted. Sister Hyperlipidemia HTN (hypertension) Depression Myocardial infarction Daughter No problems noted. Daughter No problems noted. Daughter No problems noted. Daughter No problems noted. Paternal Aunt Rheumatoid arthritis Other Mental health disorder Substance use disorder Social History Housing: Apartment Alcohol intake: current Alcohol intake frequency: does not drink Alcohol type: wine Patient Tobacco Use Status: Former Tobacco user e-Cigarette/Vaping Use: Never Used Advance Directives Date on File: 01/15/23 service: No Current occupational status: unemployed Cognitive needs: No Hearing needs: No Vision needs: No Review of Systems Const All systems reviewed & are unremarkable except as noted in HPI and below Eyes Reports no additional complaints ENT Reports nasal congestion (FREQUENT) and Reports nasal obstruction (PARTIAL.) Card Denies chest pain, Denies irregular heart rhythm and Denies leg edema Resp Reports as per HPI GI Reports abdominal pain and Reports other (HISTORY OF DIVERTICULITIS) Reports no additional complaints Musc Reports myalgias Skin/Breast Reports dry skin (MINOR RED SPOTS) Neuro Reports no additional complaints Psych Reports anxiety and Reports depression Endo Reports no additional complaints Albino/Lymph Reports no additional complaints Physical Exam Vital Signs: Last Vital Signs Pulse 89 12/26/24 14:41 BP 170/70 H 12/26/24 14:41 Pulse Ox 99 12/26/24 14:41 Oxygen Delivery Method Room Air 12/26/24 14:41 BMI result Body Mass Index 25.5 Const General: healthy appearing, comfortable, no acute distress, alert and awake Orientation/consciousness: patient oriented x3 HEENT Head: Yes normal to inspection General nose exam: No nasal polyps present, No nasal discharge present and Abnormal mucous membranes and turbinates present (MODERATE HYPERTROPHY OF THE NASAL TURBINATES) Face and sinus: Yes sinuses nontender Mouth: oropharynx normal Throat: Yes posterior oropharynx normal Eyes General: appearance normal, both eyes and all related structures Neck Neck: Yes normal visual inspection, Yes no lymphadenopathy, Yes trachea midline and Yes no JVD Thyroid: Thyroid normal Chest Chest palpation & inspection: normal inspection of the chest, normal palpation of entire chest wall and no tenderness Resp Other: PERCUSSION NOTE IS RESONANT. BREATH SOUNDS ARE MODERATELY DIMINISHED WITH SLIGHT. PROLONGATION OF THE EXPIRATORY PHASE NO WHEEZES RHONCHI OR CREPITATIONS ARE HEARD. Cardio Palpation: normal PMI Rate: regular rate Rhythm: regular rhythm Heart sounds: no gallops and no murmurs GI Palpation (GI): Soft to palpation, nontender, No hepatosplenomegaly present and no masses Auscultation: normal bowel sounds Back/Spine/Pelvis Thoracic/Lumbar Spine: thoracic and lumbar spine normal to inspection Skin General skin exam: no rashes or lesions noted Neuro General: patient oriented x3 and no focal motor deficits Cranial nerves: Yes CN's II-XII intact bilaterally Extrem General: Yes normal to inspection, Yes no clubbing, cyanosis or edema and Yes no calf tenderness Psych Appearance: grossly normal and well kempt Speech and movement: Normal speech and movement present Affect: Anxious affect present Assessment & Plan Assessment & Plan (1) Asthma: Comment: Pulmonary function test is consistent with mild small airway obstructive disorder with positive response to bronchodilator therapy This finding is suggestive of mild intermittent bronchial asthma probably due to allergic etiology . It goes along with the eosinophilia as was noticed in previous CBC results. Her presentation was mostly in the form of frequent bouts of cough. Since she has been on Breo 100-25 she has had very little cough, and is happy. Code(s): J45.909 - Unspecified asthma, uncomplicated Category: Medical Plan: Advised to keep using Breo 100-25 1 inhalation daily, However if she is totally symptom free she can take a break and use Breo 1 inhalation daily only if symptoms start. (2) ALONZO (obstructive sleep apnea): Comment: DIAGNOSED TO HAVE OBSTRUCTIVE SLEEP APNEA IN 2020. COULD NOT USE THE CPAP. I REVIEWED THE RESULTS AND ALONZO WAS MILD, MOSTLY POSITIONAL, IN SUPINE POSITION. PATIENT IS NOT OVERWEIGHT Code(s): G47.33 - Obstructive sleep apnea (adult) (pediatric) Category: Medical Plan: Once again I reassured her that her sleep apnea was very mild and mostly in supine position. Advise that she should try to sleep in lateral position Patient has good sleep and does not have any significant. Symptoms at this time (3) Allergic rhinitis: Comment: SHE HAS CHRONIC ALLERGIC TYPE RHINITIS, IT MAY BE DUE TO MULTIPLE ENVIRONMENTAL ALLERGIES. I NOTICE THAT SHE HAS CHRONIC EOSINOPHILIA WHICH POINTS TO ALLERGIC COMPONENT . At present her symptoms are minimal. Code(s): J30.9 - Allergic rhinitis, unspecified Category: Medical Plan: No need of any active treatment. Coding Level of Care Code Est Pt Level 3 (46968) Diagnoses Asthma J45.909 ALONZO (obstructive sleep apnea) G47.33 Allergic rhinitis J30.9
--- OUTSIDE RECORDS SUMMARY | 2024-12-26 17:19 | XMS_ITS | Clinical Summary ---
Author Organization [employer] Address [address] [place] [address] Care Team Providers Care Cotton Stomper Name Role Phone Unavailable Primary Care Provider [...] 4 Active Sodium Fluoride 1.1 % cream [place] teeth for 2 minutes, morning and night. Spit, do not rinse. Do not eat or drink anything for 30 minutes following use. 112 g 3 5 Active Active Problems Problem Noted Date Diagnosed Date Lupus (systemic lupus erythematosus) ([facility]) 0 07/05/2024 Encounters Date Type Department Care Team Description 12/18/2024 10:00 AM EDT Office Visit [facility] [address] [place] [phone] Pancho Butcher DDS 12/04/2024 1:00 PM EDT Office Visit [facility] [address] [place] [phone] Temo Castle DDS Dental caries (Primary Dx) 10/03/2024 1:00 PM EDT Office Visit [facility] [address] [place] [address] Pancho Butcher DDS Abrasion of teeth, localized (Primary Dx); Tooth abrasion; Inflammatory lesion of periapical tissue surrounding dental implant ([facility]) 09/28/2024 1:30 PM EDT Office Visit [facility] [address], [place] [phone] Erica Tejada DDS from Last 3 Months [...] Upcoming Encounters Date Type Department Care Team ([facility] st Contact Info) Description 01/01/2025 8:00 AM EDT Office Visit [facility] [address] [place] [address] Pancho Butcher DDS [address] [place], [place] [phone] Health Maintenance Due Date Last Done Comments [...] 04/06/2025 10/03/2024, 01/2023, 08/26/2020, Additional history exists Dental X-Ray: Bitewings 10/04/2025 10/04/19 25, 02/22/2023, 08/26/2020, Additional history exists Tobacco Screening 12/04/2025 12/04/2024 Pneumococcal Vaccine: 50+ Years Completed 04/06/2023, 08/14/2022, [...] Diagnosis Comments NO CHARGE PROCEDURE Routine 12/18/2024 1 0:00 AM EDT CASE PRESENTATION, DETAILED AND EXTENSIVE TREATMENT PLANNING Routine 12/04/2024 1:00 PM EDT 11 LIMITED ORAL EVALUATION - PROBLEM FOCUSED Routine 12/04/2024 1:00 PM EDT INTRAORAL - PERIAPICAL EACH ADDITIONAL RADIOGRAPHIC IMAGE [...] PROBLEM FOCUSED Routine 09/28/2024 1:30 PM EDT PROPHYLAXIS - ADULT Routine 08/25/2023 2 :00 PM EDT INTRAORAL - COMPLETE SERIES OF RADIOGRAPHIC IMAGES Routine 08/26/2020 12:00 AM EDT from Last 3 Months or Most Recently Relevant to Health Maintenance Insurance DENTAL - [facility]
--- OUTSIDE RECORDS SUMMARY | 2024-12-26 17:19 | XMS_ITS ---
Author Name Jenae Larson NP Address [address] [place] [address] Phone [phone] Organization [facility] Team Providers Care Manager Instrumentation Name Role Phone Jenae Larson Unavailable [phone] Osirsi Soni Unavailable Alban Lopez Unavailable [phone] Reason for Referral Not Available Allergies, adverse [...] 7 days. 2023-02-23 No Data Available Ipratropium [place] 0.03 % Solution USE 2 SPRAYS EACH [...] MOUTH AC/HS for stomach pain/spasms #60 tablet [id number] New Ondansetron 8 mg Tab Disintegrating 1 [...] sara-care- personal hygiene wipes- hand soap and social work administrator as per prior order- box of medium gloves- to follow up with case packer and PCP for further monitoring and management [...] if symptoms have not improved. #2 tablet SBf1gJj New Acetaminophen 500 mg Tab 2 tablets orally TID PRN fever/pain #30 tablet PHr8wOw New Nitrofurantoin Macrocrystal 100 mg Cap Take 1 tablet PO twice daily for 5 days. #10 tablet JXm8jMb New Ondansetron 8 mg Tab Disintegrating 1 [...] llow up calls with ptCONTINGENCY PLANPlease call [facility] if you have a change in condition, [...] or fried foods. F/I with GI. Contact [facility] 05/10 for any new, worsening or continued symptoms. Encounters Encounters Type Facility Date of Service Diagnosis/Co mplaint No Data Available [facility] Other specified disorders of nose and nasal sinuses No Data Available [facility] No Data Available [facility] No Data Available [facility] No Data Available [facility] No Data Available [facility] No Data Available [facility] New patient,40-59min; chronic exacerbation, 2 stable chronic or 1 acute illness add add modifier 95 for video (do not use for phone, instead use 64648-57) [facility] Rheumatoid arthritis, unspecifiedUlcerative colitis, unspecified, without complicationsAtopic dermatitis, unspecifiedRash and other nonspecific skin eruptionEssential (primary) hypertensionBipolar II disorderGastritis, unspecified, without bleedingDorsalgia, unspecifiedRetention of urine, unspecifiedRepeated fallsGastro-esophageal reflux disease without esophagitisOld myocardial infarction New patient,40-59min; chronic exacerbation, 2 stable chronic or 1 acute illness add add modifier 95 for video (do not use for phone, instead use 25193-19) [facility] New patient,40-59min; chronic exacerbation, 2 stable chronic or 1 acute illness add add modifier 95 for video (do not use for phone, instead use 76123-69) [facility] New patient,40-59min; chronic exacerbation, 2 stable chronic or 1 acute illness add add modifier 95 for video (do not use for phone, instead use 07683-91) [facility] New patient,40-59min; chronic exacerbation, 2 stable chronic or 1 acute illness add add modifier 95 for video (do not use for phone, instead use 69968-59) [facility] New patient,40-59min; chronic exacerbation, 2 stable chronic or 1 acute illness add add modifier 95 for video (do not use for phone, instead use 46425-07) [facility] New patient,40-59min; chronic exacerbation, 2 stable chronic or 1 acute illness add add modifier 95 for video (do not use for phone, instead use 75189-30) [facility] New patient,40-59min; chronic exacerbation, 2 stable chronic or 1 acute illness add add modifier 95 for video (do not use for phone, instead use 33606-85) [facility] No Data Available [facility]2023 Mononeuropathy, unspecified No Data Available [facility]23 Essential (primary) hypertensionBipolar II disorderOld myocardial infarctionRheumatoid arthritis, unspecifiedGastritis, unspecified, without bleedingUlcerative colitis, unspecified, without complicationsDorsalgia, unspecifiedAtopic dermatitis, unspecifiedRash and other nonspecific skin eruptionRetention of urine, unspecifiedRepeated fallsGastro-esophageal reflux disease without esophagitisNasal congestionMononeuropathy, unspecified No Data Available [facility]23 No Data Available [facility] No Data Available [facility] No Data Available [facility] [place] No Data Available [facility] [place] No Data Available [facility] [place]2023 Ulcerative colitis, unspecif ied, without complicationsGastritis, unspecified, without bleedingGastro-esophageal reflux disease without esophagitisRetention of urine, unspecifiedUnspecified urinary incontinenceOveractive bladder No Data Available [facility] 02[place]2023 Acute candidiasis of vulva a nd vaginaEncntr for general adult medical exam w/o abnormal findingsEssential (primary) hypertension No Data Available [facility] [place]20[place] No Data Available [facility]20[place] No Data Available [facility] [place] No Data Available [facility] 02[place]2023 No Data Available [facility] 06[place]11/2023 Rheumatoid arthritis, unspec ified No Data Available [facility] 07[place]/2023 Rheumatoid arthritis, unspec ified No Data Available [facility] [place] 07[place]2023 No Data Available [facility] 07/09/2023 No Data Available [facility] 07[place]09/2023 No Data Available [facility] 07[place]13/2023 Rheumatoid arthritis, unspec ified No Data Available [facility] 07[place]13/2023 No Data Available [facility] 07[place]13/2023 Estab. patient 30-39min; chronic exacerbation, 2 stable chronic or 1 acute illness add add modifier 95 for video, (do not use for phone, instead use 45900-62) [facility] 08[place]/2023 Essential (primary) hypertensionBipolar II disorderOld myocardial [...] (do not use for phone, instead use 15301-21) [facility] 08[place]30/2023 Estab. patient 30-39min; chronic exacerbation, 2 stable chronic or 1 acute illness add add modifier 95 for video, (do not use for phone, instead use 92926-55) [facility] 08/30/20[place] Estab. patient 30-39min; chronic exacerbation, 2 stable chronic or 1 acute illness add add modifier 95 for video, (do not use for phone, instead use 72881-60) [facility] ([place] 08[place]30/2023 Estab. patient 30-39min; chronic exacerbation, 2 stable chronic or 1 acute illness add add modifier 95 for video, (do not use for phone, instead use 17156-53) [facility] 08/30/2023 Estab. patient 30-39min; chronic exacerbation, 2 stable chronic or 1 acute illness add add modifier 95 for video, (do not use for phone, instead use 41440-57) [facility] Estab. patient 30-39min; chronic exacerbation, 2 stable chronic or 1 acute illness add add modifier 95 for video, (do not use for phone, instead use 18953-25) [facility] 08[place]30/2023 Estab. patient 30-39min; chronic exacerbation, 2 stable chronic or 1 acute illness add add modifier 95 for video, (do not use for phone, instead use 48381-86) [facility] 08[place]30/2023 Estab. patient 30-39min; chronic exacerbation, 2 stable chronic or 1 acute illness add add modifier 95 for video, (do not use for phone, instead use 76754-58) [facility]/2023 Estab. patient 30-39min; chronic exacerbation, 2 stable chronic or 1 acute illness add add modifier 95 for video, (do not use for phone, instead use 89763-46) [facility] 08[place]/2023 Estab. patient 10-29min; 1 minor problem; add add modifier 95 for video, modifier 93 for phone [facility] 04[place]/2024 Chronic sinusitis, unspecifi ed Estab. patient 10-29min; 1 minor problem; add add modifier 95 for video, modifier 93 for phone [facility] 04/11/2024 Estab. patient 10-29min; 1 minor problem; add add modifier 95 for video, modifier 93 for phone [facility] 04/11/2024 Estab. patient 10-29min; 1 minor problem; add add modifier 95 for video, modifier 93 for phone [facility] 04/11/2024 Estab. patient 10-29min; 1 minor problem; add add modifier 95 for video, modifier 93 for phone [facility] 04[place]/2024 Essential (primary) hypertensionBipolar [...] 95 for video, modifier 93 for phone [facility] 04[place]14/[place] Estab. patient 10-29min; 1 minor problem; add add modifier 95 for video, modifier 93 for phone [facility] 04/14/2024 Estab. patient 10-29min; 1 minor problem; add add modifier 95 for video, modifier 93 for phone [facility] 04/14/20[place] Estab. patient 10-29min; 1 minor problem; add add modifier 95 for video, modifier 93 for phone [facility] 04/14/2024 Estab. patient 10-29min; 1 minor problem; add add modifier 95 for video, modifier 93 for phone [facility] [place] 04/14/2024 Estab. patient 10-29min; 1 minor problem; add add modifier 95 for video, modifier 93 for phone [facility] 05/09/2024 Acute candidiasis of vulva a nd vagina Estab. patient 10-29min; 1 minor problem; add add modifier 95 for video, modifier 93 for [facility] 07/19/2024 Acute upper respiratory infe ction, unspecified Estab. patient 10-29min; 1 minor problem; add add modifier 95 for video, modifier 93 for phone [facility] [place] 07[place]19/2024 Estab. patient 10-29min; 1 minor problem; add add modifier 95 for video, modifier 93 for phone [facility] 07/19/2024 Estab. patient 10-29min; 1 minor problem; add add modifier 95 for video, modifier 93 for phone [facility] [place]24 Unspecified abdominal pain Estab. patient 10-29min; 1 minor problem; add add modifier 95 for video, modifier 93 for phone [facility] [place] 09[place]05[place]20[place] Estab. patient 10-29min; 1 minor problem; add add modifier 95 for video, modifier 93 for phone [facility] 09[place]05/20[place] Estab. patient 10-29min; 1 minor problem; add add modifier 95 for video, modifier 93 for [facility], [place] 09[place]08/2024 Unspecified abdominal painOt her problems related to medical facilities and other health care Estab. patient 10-29min; 1 minor problem; add add modifier 95 for video, modifier 93 for phone [facility] 09/08/2024 Retention of urine, unspecifiedUnspecified urinary incontinenceOveractive bladderUrinary tract infection, site not specified Estab. patient 10-29min; 1 minor problem; add add modifier 95 for video, modifier 93 for phone [facility] 09/08/2024 Estab. patient 10-29min; 1 minor problem; add add modifier 95 for video, modifier 93 for phone [facility] 09/08/2024 Estab. patient 10-29min; 1 minor problem; add add modifier 95 for video, modifier 93 for [facility] 11/15/2024 Candidiasis, unspecified Estab. patient 10-29min; 1 minor problem; add add modifier 95 for video, modifier 93 for phone [facility] 11/22/2024 Candidiasis, unspecified Estab. patient 10-29min; 1 minor problem; add add modifier 95 for video, modifier 93 for phone [facility]/2024 Essential (primary) hypertensionBipolar II disorderOld myocardial infarctionRheumatoid arthritis, unspecifiedImmunodeficiency due to conditions classified elsewhereGastritis, unspecified, without bleedingUlcerative colitis, unspecified, without complicationsGastro-esophageal reflux disease without esophagitisDorsalgia, unspecifiedSystemic lupus erythematosus, unspecifiedOther problems related to medical facilities and other health careRash and other nonspecific skin eruptionAtopic dermatitis, unspecifiedUnspecified urinary incontinenceUrinary tract infection, site not specifiedRetention of urine, unspecifiedOveractive bladder Estab. patient 10-29min; 1 minor problem; add [...] date Servicing provider Phone# No Data Available [id number] 2022-10-20 No Data Available No Data Available Medication List Documented (0699B) 1159F 2022-10-20 No Data Available No Data [...] (do not use for phone, instead use [id number]) [id number] 2022-10-15 No Data Available No Data Availa [...] No Data Avail able No Data Available [id number] 2023-01-05 No Data Available No Data Available No Data Available [id number] 2023-01-16 No Data Available No Data Available [...] Available No Data Available No Data Available [id number] 2023-07-09 No Data Available No Data Available Medication List Documented (1159F) 1159F 2023-07-09 No Data Available No Data Anastacia ilable SBP >= 140 3077F 2023-07-09 No Data Available No Data Available DBP <80 (3078F) 3078F 2023-07-09 No Data Available No Data Available No Data Available [id number] 2023-07-13 No Data Available No Data Available [...] (do not use for phone, instead use 45483-11) [id number] 2023-08-30 No Data Available No Data Availa [...] 95 for video, modifier 93 for phone [id number] 2024-04-12 No Data Available No Data Availa ble No Data Available [id number] 2024-04-12 No Data Available No Data Available SBP >= 140 3077F 2024-04-12 No Data Available No Data Available DBP <80 (3078F) 3078F 2024-04-12 No Data Available No Data Available Estab. patient 10-29min; 1 minor problem; add add modifier 95 for video, modifier 93 for phone [id number] 2024-04-14 No Data Available No Data Availa [...] 95 for video, modifier 93 for phone [id number] 2024-09-05 No Data Available No Data Availa [...] Data Availa ble SBP >= 140 3077F 2024-11-27 No Data Available No Data Available Pain Assessment - Pain Documented on a Pain Scale (1125F) 1125F 2024-11-27 No Data Available No Data Anastacia ilable DBP <80 (3078F) 3078F 2024-11-27 No Data Available No Data Available Functional [...] stool max 4 times daily #30 capsule VLu1zWv New Dicyclomine 20 mg Tab TAKE 1 TABLET BY MOUTH AC/HS for stomach pain/spasms #60 tablet MOz2eDr New Ondansetron 8 mg Tab Disintegrating 1 [...] sara-care- personal hygiene wipes- hand soap and social work administrator as per prior order- box of medium gloves- to follow up with case packer and PCP for further monitoring and management hx: 10/15/22: Reports urinary retention and managed with Flomax1. Dz management discussed2. Continue to follow up with PCP 2023-02-23 11:16:05 New Diflucan 150 mg Tab Take 1 tablet PO. May take 1 tablet 72 hours later if symptoms have not improved. #2 tablet TIu7Mpn Miconazole Nitrate 2 % Crm Vaginal Apply to affected area daily x 7 days. #1 applicator AUq4Jsdza (patient, parent, or guardian); 11-20 minutes of [...] modifier 95)Continue to see PCP. Follow-up with [facility] as needed for any acute or disease [...] stool max 4 times daily #30 capsule BTi7vFk New Dicyclomine 20 mg Tab TAKE 1 TABLET BY MOUTH AC/HS for stomach pain/spasms #60 tablet DSa8iJp New Ondansetron 8 mg Tab Disintegrating 1 [...] sara-care- personal hygiene wipes- hand soap and social work administrator as per prior order- box of medium gloves- to follow up with case packer and PCP for further monitoring and management [...] they most likely to go back?Please call [facility] if you have a change in [...] for phoneContinue to see PCP. [facility] for any acute or [...] stool max 4 times daily #30 capsule OBk6bPk New Dicyclomine 20 mg Tab TAKE 1 TABLET BY MOUTH AC/HS for stomach pain/spasms #60 tablet RIy7rMt New Ondansetron 8 mg Tab Disintegrating 1 [...] sara-care- personal hygiene wipes- hand soap and social work administrator as per prior order- box of medium gloves- to follow up with case packer and PCP for further monitoring and management [...] they most likely to go back?Please call [facility] if you have a change in [...] for phoneContinue to see PCP. Follow-up with [facility] as needed for any acute or disease education needs that may arise 05/10.Diflucan 150 mg Tab Take 1 tablet PO. May take 1 tablet 72 hours later if symptoms have not improved. #2 tablet IWr7Jypwmm underwearNotify for persistant symptoms. 2024-07-19 09:11:42 Televideo 10-29min; 1 minor problem; add add modifier 95 for video, modifier 93 for phoneContinue to see PCP. [facility] needed for any acute or disease education needs that may arise 05/10.Amoxicillin-Pot Clavulanate 875/125 mg Tab Take 1 tablet PO twice daily for 7 days #14 tablet PWx0Buzpdm to tolerate prednisoneEnc use of alb inhaler Q 4 hrs prnContinue flonase and antihistamine. Tyelnol prnRest and hydrateNotify for worsening symptoms. 2024-09-05 09:02:34 Televideo 10-29min; 1 minor problem; add add modifier 95 for video, modifier 93 for phoneContinue to see PCP. Follow-up with [facility] as needed for any acute or disease education needs that may arise 05/10.09/05/24: Rx: Dicyclomine 20 mg Tab-TAKE 1 TABLET BY MOUTH BEFORE MEALS AND AT BEDTIME FOR STOMACH PAIN/SPASMS. Recommend bland diet-BRAT diet-Bananas, rice, applesauce, toast. Avoid coffee, alcohol, dairy products, fruit, vegetables, red meat, spicy or fried foods. F/I with GI. [facility]/10 for any new, worsening or continued symptoms. 2024-09-08 13:43:08 Estab. patient 10-29 min; 1 minor problem; add add modifier 95 for video, modifier 93 for phoneContinue to see PCP. Follow-up with [facility] as needed for any acute or disease education needs that may arise 05/10.09/05/24: Rx: Dicyclomine 20 mg Tab-TAKE 1 TABLET BY MOUTH BEFORE MEALS AND AT BEDTIME FOR STOMACH PAIN/SPASMS. Recommend bland diet-BRAT diet-Bananas, rice, applesauce, toast. Avoid coffee, alcohol, dairy products, fruit, vegetables, red meat, spicy or fried foods. F/I with GI. Contact [facility] 05/10 for any new, worsening or continued symptoms.Monthly follow up calls with ptCONTINGENCY PLANWhy was the member in the hospital or ER most recently? Why are they most likely to go back?Please call [facility] if you have a change in condition, Blood pressure > 170/90Acute illness, change in condition or medication and with any questions about your healthFall, any unusual symptoms or have any medical questions! 2024-09-08 19:25:40 Televideo 10-29min; 1 minor problem; add add modifier 95 for video, modifier 93 for phoneSBP >= 140DBP <80 (3078F)Continue to see PCP. Follow-up with [facility] as needed for any acute or disease education needs that may arise 05/10.10/15/22: pt in need of new order for incontinence supplies- will order per pt's requestsincontinence liners/inserts quantity sufficient for QID sara-care- personal hygiene wipes- hand soap and social work administrator as per prior order- box of medium gloves- to follow up with case packer and PCP for further monitoring and management [...] if symptoms have not improved. #2 tablet AEe0iPw New Acetaminophen 500 mg Tab 2 tablets orally TID PRN fever/pain #30 tablet CCq5xWf New Nitrofurantoin Macrocrystal 100 mg Cap Take 1 tablet PO twice daily for 5 days. #10 tablet DVz4aVm New Ondansetron 8 mg Tab Disintegrating 1 tablet orally every 8 hours as needed nausea/vomiting #30 tablet RFx0 2024-11-15 14:57:00 New Nystatin [id number] UNIT/GM Crm 1 application topically to affected area 3 times per day #60 g ARz2Nmswoa Diflucan 150 mg Tab Take 1 tablet PO. May take 1 tablet 72 hours later if symptoms have not improved. #3 tablet UNo8Kijvga up plan for acute symptoms: As neededTelevideo 10-29min; 1 minor problem; add add modifier 95 for video, modifier 93 for phoneContinue to see PCP. Follow-up with [facility] as needed for any acute or disease education needs that may arise 05/10. 2024-11-22 06:05:49 Estab. patient 10-29 min; 1 minor problem; add add modifier 95 for video, modifier 93 for phoneContinue to see PCP. [facility] as needed for any acute or [...] for video, modifier 93 for phoneBMI obtained (8091W)Continue to see PCP. Follow-up with [facility] as needed for any acute or disease education needs that may arise.Monthly follow up calls with ptCONTINGENCY PLANPlease call [facility] if you have a change in [...] Follow up with Psychiatry for provider assignmentStable10/15/22: C done in 09/2022. No interventions.1. F/u [...] MOUTH AC/HS for stomach pain/spasms #60 tablet QTv9yQk New Ondansetron 8 mg Tab Disintegrating 1 [...] sara-care- personal hygiene wipes- hand soap and social work administrator as per prior order- box of medium gloves- to follow up with case packer and PCP for further monitoring and management [...] if symptoms have not improved. #2 tablet UYq3zRm New Acetaminophen 500 mg Tab 2 tablets orally TID PRN fever/pain #30 tablet ORa8rFx New Nitrofurantoin Macrocrystal 100 mg Cap Take 1 tablet PO twice daily for 5 days. #10 tablet XVt0mEn New Ondansetron 8 mg Tab Disintegrating 1 tablet orally every 8 hours as needed nausea/vomiting #30 tablet BVy7YxxjigMDLXEENUIEQWJUICER 200 MG TABf/u with pcp annually Goals [...] interventions as discussed. 2024-11-27 Contact [facility] if develo ping health related concerns. 2024-11-27 Continue f/u care [...] discussedDo you have a Durable Power of Radial Drill Press Set Up Operator for Healthcare, or Healthcare Proxy Or Guardianship? Yes, preferred proxy but not named POAIf so, Who? Coral Minor (Daughter) & Bernard Roach (partner)Do you have a written Advance Directive? Has no formal [id number] : AD or surrogate was documented in [...]
--- OUTSIDE RECORDS SUMMARY | 2024-12-26 17:19 | XMS_ITS | Encounter Summary ---
Author Organization [facility] Address [address] [place] [id number] Phone Care Team Providers Care [employer]ic Systems Safety Engineer Name Role Phone Osiris Soni MD Primary Care Provider Encounter Details Date Type Department Care Team (Late st Contact Info) Description 06/03/2017 Ancillary [facility] [address] [place] [address] Donte Chris DO [address] [place] [address] Palpitations Social History Tobacco Use Types Packs/Day [...] Palpitations documented in this encounter Care Teams [employer]ic [employer] Safety Engineer Relationship Specialty Start Date End Date Osiris Soni MD [facility] [address] PCP - General Internal Medicine 06/03/17 documented as of this encounter Additional Source Comments The information contained in this document represents components of the legal health record. It is not the complete legal health record.[facility]
--- OUTSIDE RECORDS SUMMARY | 2024-12-26 17:19 | XMS_ITS | Encounter Summary ---
Author Organization [employer] Address [address] [place] [address] Care Team Providers Care Vp Scientific Name Role Phone Unavailable Primary Care Provider Unavailabl e Encounter Details Date Type Department Care Team (Latest Contact Info) Description 08/26/[address] [facility] CONVERSIONS Dental, Provider, DDS Social History [...] Description 01/01/2025 8:00 AM EDT Office Visit [facility] [address] [place] [address] Pancho Butcher DDS [address] [place] [address] documented as of this encounter Visit Diagnoses Not on filedocumented in this encounter
--- OUTSIDE RECORDS SUMMARY | 2024-12-26 17:19 | XMS_ITS | Clinical Summary ---
Author Organization [facility] Address [address] [place], [place] [id number] Phone Care Team Providers Care Hydroblaster Name Role Phone Osiris Soni MD Primary [...] ACO ACO ACO ACO ACO ACO ACO [facility] [place] [address] Care Teams Hydroblaster Relationship Specialty Start Date End Date Osiris Soni MD [address] [place] [address] PCP - General Internal Medicine 06/03/17 Additional Source Comments The information contained in this document represents components of the legal health record. It is not the complete legal health record.[facility]
--- OUTSIDE RECORDS SUMMARY | 2024-12-26 17:19 | XMS_ITS | Patient Health Record ---
Author Organization [facility] Address [address] [place] [address] Care Team Providers Care Drafter Patent Name Role Phone Osiris Soni MD Primary Care Provider Alban Gerard Jr Allergies No Known Allergies Reason For Referral [...] at 5:00 p.m. the day before the procedure; Duration: 1 day 11/29/2023 Active tiZANidine HCl 2 MG 1 tablet as needed Orally Three times a day Active Vitamin D 1000 UNIT 1 tablet Orally Once a day; Duration: 30 day(s) Active Hydroxychloroquine Sulfate 2 00 MG TAKE 1 AND 1/2 TABLET ORALLY DAILY Oral; Duration: 90 Active Ipratropium Walnut 0.03 % USE 2 SPRAYS EACH NOSTRILS 1-3 TIMES DAILY 15 MINUTES BEFORE MEALS Nasal; Duration: 90 Active Loratadine 10 MG TAKE 1 TABLET BY EVERY DAY Oral; Duration: 90 Active methylPREDNISolone 4 MG PLEASE SEE ATTAC HED FOR DETAILED DIRECTIONS Oral; Duration: 28 Active Centrum Silver 50+Women - as directed Orally Active LORazepam 0.5 MG 1 tablet at bedtime as needed Orally Once a day Active Melatonin 5 MG 1 tablet in the evening Orally Once a day; Duration: 30 day(s) Active Escitalopram Oxalate 10 MG 1 tablet Oral ly Once a day; Duration: 30 day(s) Active Amitriptyline HCl 10 MG 1 tablet at bedt afua Orally Once a day; Duration: 30 day(s) Active Zolpidem Tartrate 10 MG 1 tablet at bedt afua as needed Orally Once a day Active hydrOXYzine HCl 10 MG 1 tablet as needed Orally BID Active Tamsulosin HCl 0.4 MG 1 capsule Orally O nce a day; Duration: 30 day(s) Active Gabapentin 300 MG 1 [...] Problem Status W/U Status Risk Notes Problem Colon cancer screening (664712407) Colon cancer screening (Z12.11) Active confirmed Problem Gastro-esophageal reflux disease without esophagitis (458209682) Gastro-esophage al reflux disease without esophagitis (K21.9) Active confirmed Problem Generalized abdominal pain (619560587) Generalized abdominal pain (R10.84) Active confirmed Problem Dysphagia (27482786) Other dysphagia (R13.19) Active confirmed Problem Dysphagia (72205691) Dysphagia (R13.10) Active confirmed Problem Constipation (09312572) Constipation, unspecified constipation type (K59.00) Active confirmed Problem Gastritis (1244756) Gastritis (K29.70) Active confirmed Problem Diarrhea (38566006) Diarrhea, unspecified type (R19.7) Active confirmed Problem Gastroesophageal reflux disease (404975698) Esophageal reflux disease (K21.9) Active confirmed Problem Gastric intestinal metaplasia (61466800) Gastric intestinal metaplasia (K31.A0) Active confirmed Encounters Encounter Location Date Provider Diagnosis [facility] Outpatient [address] [place] [id number] 01/07/2024 Alban Lopez Jr Colon cancer screening [...] Insured Coverage Start Date Coverage End Date [facility] [address] [address] [place] [phone] [id number] MAGGIE PAULETTE Self - patient is the insured MEDICAID [facility] [address] [place] [phone] [id number] MAGGIE PAULETTE Self - patient is the insured Medical (General) History Medical History History ICD Code Hypertension bipolar disorder GERD, upper endoscopy 3, gastric intestinal metaplasia at one site, 2-3 year followup diverticulitis arthritis neuropathy Colonoscopy 01/31 benign cecal polyp, te n-year followup lupus Surgical History Surgery Date(Month/Year) hysterectomy 1985
--- OUTSIDE RECORDS SUMMARY | 2024-12-26 17:19 | XMS_ITS | Encounter Summary ---
Author Organization [employer] Address [address] [facility] [address] [place] [address] Care Team Providers Care Healthcare Science Specialist Name Role Phone Unavailable Primary Care Provider Unavailabl e Encounter Details Date Type Department Care Team (Latest Contact Info) Description 03/30/2019 Abstract [facility] Dental, Provider, DDS Social [...] Description 01/01/2025 8:00 AM EDT Office Visit [facility] [address] [place] [address] Pancho Butcher DDS [address] [place] [address] documented as of this encounter Visit Diagnoses Not on filedocumented in this encounter
== END 2024-12-26 14:57 | disposition home or self-care (01) ==
LOC: HO.HPS 14:20
PROVIDERS: PCP Internal Medicine; Visit Provider Internal Medicine
DX: J45.909 Unspecified asthma, uncomplicated (principal); G47.33 Obstructive sleep apnea (adult) (pediatric); J30.9 Allergic rhinitis, unspecified
CPT/HCPCS: 99213

== ENCOUNTER → 2024-12-26 14:19 | Outpatient (BNVA) | payer OTHER, SELFPAY | PROVIDERS: PCP Internal Medicine; Visit Provider Internal Medicine | DX: J45.909 Unspecified asthma, uncomplicated (principal); G47.33 Obstructive sleep apnea (adult) (pediatric); J30.9 Allergic rhinitis, unspecified; Z87.891 Personal history of nicotine dependence | CPT/HCPCS: 99212 ==

== ENCOUNTER 2025-01-10 14:32 | Outpatient (AMB) | payer OTHER, SELFPAY ==
--- NOTE | 2025-01-10 14:40 | A.OFFVIS_ITS ---
Intake Visit Reasons: 3m follow up Intake Note: Patient is present for 3M F/U Urology Medication:ESTRADIOL,TERAZOSIN Antibiotic Allergy:NONE Blood Thinner:NONE TODAY'S PVR:54ML'S Project Manager Senior Required: No Allergies prednisone Adverse Reaction (Intermediate, Verified 01/10/25 21:51) Anxiety Medication List - Last Reconciled 01/10/25 by ERICA WarrenP- albuterol sulfate 90 mcg/actuation 1 inh inhalation QID PRN 30 days bupropion HCl 1 tab PO DAILY diclofenac sodium 1% 2 grams topical BID PRN dicyclomine 20 mg PO QID erythromycin 0.5 inches ophthalmic (eye) QID escitalopram oxalate 10 mg PO DAILY@1300 PRN estradiol 0.01%(0.1mg/gram) vaginally 3 times a week; pea sized amount to urethra 3 times a week 30 days fluticasone furoate-vilanterol 100-25 mcg/dose (Breo Ellipta) 1 inh inhalation DAILY 30 days gabapentin 600 mg PO DAILY PRN geriatric [id number] (Centravites 50 Plus tablet) 1 tab PO DAILY hydroxychloroquine 300 mg (1.5 x 200 mg) PO DAILY 90 days hyoscyamine sulfate 0.125 mg PO BID PRN leg brace (Knee Support Brace) As directed Hinged knee brace right Dx: osteoarthritis lorazepam 0.5 mg PO DAILY PRN melatonin 10 mg PO BEDTIME PRN nystatin 1 appl topical DAILY ondansetron 8 mg PO TID terazosin 1 mg PO BEDTIME 30 days HPI Comments Details: Jessa is a pleasant 69-year-old female patient of Dr. Soni who was accompanied by her daughter at today's office visit. She has a past medical history of anxiety, arthritis, bipolar, degenerative disc disease, diverticulitis, dyslipidemia, hypertension, GERD, history of cervical cancer, irritable bowel syndrome with constipation, neuropathy, osteopenia. She presents to the office today for follow-up regarding her recurrent urinary tract infections and incomplete bladder emptying. In discussion with the patient today she reports to be doing and feeling well. She reports compliance with Estrace cream and terazosin as prescribed. She denies having had any bothersome urinary issues or concerns since her last office visit here. She denies having had any UTI like symptoms. She does feel terazosin has been helpful in feeling of incomplete bladder emptying. We did discussed improvement in postvoid residual from last office visit at 236 mL and today's postvoid residual 54 mL. We did discussed at length potential causes of incomplete bladder emptying as well as further treatment options and risks and benefits of these treatment options. She reports she does attempt to double void in relax her pelvis. Previous workup has included a retroperitoneal ultrasound 11/04 noting bilateral kidneys with no lesions and or hydronephrosis noted. Left kidney with probable 1 by 8 x 9 mm peripelvic cyst in the upper pole. No imaging follow-up recommended per radiology report. The bladder is well distended. Bladder wall upper normal in thickness measuring 4 mm. No stone or masses visualized. Pre void bladder volume is approximately 400 mL. Postvoid bladder volume is approximately 150 mL. When asked she denies urinary urgency, urinary frequency, incontinence, nocturia, hematuria, dysuria, foul smelling urine, changes to urinary stream, flank pain, fever, and or chills. She is happy with her current voiding parameters. She otherwise offers no other issues or concerns at this time. PENDING SALE TO [facility] Medical History Elevation of levels of liver transaminase levels Eosinophilia Asthma Allergic rhinitis Dyspnea on exertion Restrictive lung disease Venous insufficiency Right carotid bruit Diverticulitis Bipolar 1 disorder GERD (gastroesophageal reflux disease) History of cervical cancer Irritable bowel syndrome with constipation Weak urinary stream Surgical menopause Osteopenia Essential hypertension Dyslipidemia Anxiety Surgical History History of cardiac cath Hx of esophagogastroduodenoscopy Hx of colonoscopy History of partial hysterectomy Family History Father Throat cancer Mother No problems noted. Brother No problems noted. Sister No problems noted. Sister No problems noted. Sister No problems noted. Sister Hyperlipidemia HTN (hypertension) Depression Myocardial infarction Daughter No problems noted. Daughter No problems noted. Daughter No problems noted. Daughter No problems noted. Paternal Aunt Rheumatoid arthritis Other Mental health disorder Substance use disorder Social History Housing: Apartment Alcohol intake: current Alcohol intake frequency: does not drink Alcohol type: wine Patient Tobacco Use Status: Former Tobacco user e-Cigarette/Vaping Use: Never Used Advance Directives Date on File: 01/15/23 service: No Current occupational status: unemployed Cognitive needs: No Hearing needs: No Vision needs: No Review of Systems Const Reports as per [facility] Eyes Reports no additional complaints ENT Reports no additional complaints Card Reports as per HPI Resp Reports no additional complaints GI Reports as per HPI Reports as per HPI Musc Reports as per HPI Neuro Reports as per HPI Psych Reports as per HPI Albino/Lymph Reports no additional complaints Aller/Immun Reports no additional complaints Physical Exam Const General: cooperative, healthy appearing, comfortable, no acute distress, well developed, alert and awake Nutritional Appearance: average body habitus Orientation/consciousness: patient oriented x3 Limitations: no limitations HEENT Head: Yes normal to inspection, Yes normocephalic and Yes atraumatic Ears: hearing grossly normal bilaterally Eyes General: appearance normal, both eyes and all related structures Neck Neck: Yes normal visual inspection and Yes trachea midline Chest Chest palpation & inspection: normal inspection of the chest Resp Effort & Inspection: normal respiratory effort and able to speak in complete sentences Cardio Rate: regular rate GI Inspection: Yes normal to inspection General: Yes no CVA tenderness Back/Spine/Pelvis Back: no CVA tenderness Skin General skin exam: no rashes or lesions noted Neuro General: patient oriented x3 Extrem General: Yes normal to inspection Psych Appearance: grossly normal and well kempt Mental Status: mental status grossly normal Speech and movement: Normal speech and movement present and Clear speech present Affect: normal affect Attitude: cooperative Thought process: Normal thought process present Thought content: Normal thought content present Insight: Fair insight present (Psych) Judgement: Fair judgement present (Psych) Office Procedures Post Void Residual Post Residual Void Post Void Residual (PVR): 54 [id number] Void Residual by ultrasound Results AMB Urinalysis, Automated UA Leukoctes 0 Alexander/uL Last Edit by DAMARIS Guidry on 01/10/25 14:53 UA Nitrite Negative Last Edit by DAMARIS Guidry on 01/10/25 14:53 UA Urobilinogen 0.2 mg/dL Last Edit by DAMARIS Guidry on 01/10/25 14:5 3 UA Protein 0 mg/dL Last Edit by DAMARIS Guidry on 01/10/25 14:53 UA pH 6.0 Last Edit by DAMARIS Guidry on 01/10/25 14:53 UA Blood 0 Sivakumar/uL Last Edit by DAMARIS Guidry on 01/10/25 14:53 UA Specific [place] 1.010 Last Edit by DAMARIS Guidry on 01/10/25 14: 53 UA Ketone Negative Last Edit by DAMARIS Guidry on 01/10/25 14:53 UA Bilirubin 0 mg/dL Last Edit by DAMARIS Guidry on 01/10/25 14:53 UA Glucose 0 mg/dL Last Edit by DAMARIS Guidry on 01/10/25 14:53 Results Reviewed Results Reviewed: Laboratory Last Values Urine pH (Auto) 6.0 01/10/25 14:52 Specific [place] (Auto) 1.010 01/10/25 14:52 Urine Protein (Auto) 0 mg/dL 01/10/25 14:52 Glucose (UA)(Auto) 0 mg/dL 01/10/25 14:52 Urine Ketones (Auto) Negative 01/10/25 14:52 Urine Blood (Auto) 0 Sivakumar/uL 01/10/25 14:52 Urine Nitrite (Auto) Negative 01/10/25 14:52 Urine Bilirubin (Auto) 0 mg/dL 01/10/25 14:52 Urine Urobilinogen (Auto) 0.2 mg/dL 01/10/25 14:52 Leukocyte Esterase (Auto) 0 Alexander/uL 01/10/25 14:52 Assessment & Plan Assessment & Plan (1) Renal cyst: Code(s): N28.1 - Cyst of kidney, acquired Category: Medical (2) Incomplete bladder emptying: Code(s): R33.9 - Retention of urine, unspecified Category: Medical (3) Recurrent UTI (urinary tract infection): Code(s): N39.0 - Urinary tract infection, site not specified Category: Medical Plan In office urinalysis results with the patient today; as noted above. PVR 54mL. Continue terazosin and Estrace as prescribed. We did discussed potential causes of recurrent urinary tract infections as well as incomplete bladder emptying; we did discussed further treatment options and risks and benefits of these treatment options. We did discuss in office cystoscopy and or urodynamics for further assessment evaluation. Will refer to pelvic floor therapy for further assessment evaluation. All questions were answered. Continue to double void. Follow-up in 4-6 months with PVR; or sooner with any issues, concerns, and or questions Orders: Orders AMB Urinalysis Automated Today Z13.9 - Encounter for screening, unspecified PT Evaluation and Treatment Today R33.9 - Retention of urine, unspecified, R39.16 - Straining to void, Z87.898 - Personal history of other specified conditions Patient Instructions: The patient had an opportunity to ask questions regarding the treatment plan. All questions were answered. Physical exam, labs, and imaging were discussed and reviewed in detail. As well as risks, benefits, and discussion of treatment choices. No major barriers to understanding were identified. The patient expressed understanding and agreement with the above treatment plan. The patient was made aware they should contact our office by phone for worsening of their current condition, the appearance of new symptoms, or with any questions or concerns. Compliance is encouraged with any medications and follow up testing that is ordered. It is a privilege to be allowed the opportunity to participate in? your urological care.? Again, if you have any questions or concerns If you have any questions or concerns please do not hesitate to contact me. The office is [phone]. This note is constructed using voice recognition software. While every effort has been made to ensure accuracy twisting machine operator errors may have been included. Yours sincerely, JASON Warren Coding Level of Care Code Est Pt Level 3 (18669) Complex EM visit Add On G2211 Diagnoses Renal cyst N28.1 Incomplete bladder emptying R33.9 Recurrent UTI (urinary tract infection) N39.0 CPT Codes Post Residual Void - PVR CPT Code: 14223-Mltm Void Residual by ultrasound ([id number])
--- OUTSIDE RECORDS SUMMARY | 2025-01-10 18:53 | XMS_ITS | Data Portability ---
Author Organization [place] - [facility], Allergy Address [address] [address] Care Team Providers Care Electro Optical Engineer Name Role Phone PENELOPE CORNELIUS Primary [...] still symptomatic. [email or web address] Not available 2024 10:59:19 04/26/2024 04/26/2024 69yo [...] benefit from immunotherapy if approved by her speech coach in [place]. All questions answered. [email or web address] Not available 04/26/2024 16:45:50 11/17/2024 11/17/2024 69-year-old female with allergic rhinitis and lupus presents with daughter for allergy test results. Skin allergy testing demonstrated moderate sensitivity to two molds and Gerardo grass. Examination today is unremarkable. We discussed observation versus sjek-blx-imslzty medication versus allergy immunotherapy. Patient agrees to observe and use allergy medications as needed as her symptoms are well-controlled at this time. She will return for reevaluation as needed. [email or web address] Not available 11/17/2024 18:09:19 Plan of Treatment Reminders Order Date Submit Date Provider Last Modified By Organization Details Last Modified Time Details Appointments None recorded. Lab None recorded. Referral None recorded. Procedures allergy testing, skin prick (PROC) 2024 025 [email or web address] Not available 13:22:42 intraderma l allergy skin testing (PROC) 2024 025 [email or web address] Not available 5 13:22:42 pulmonary function test procedure (PROC) 2024 025 [email or web address] Not available 5 13:22:42 pulse oximetry (PROC) 2024 025 [email or web address] Not available 13:22:42 Surgeries None recorded. Imaging None recorded. Medication Orders azelastine 137 mcg (0.1 %) nasal spray 2024 025 [place] [facility], [address], [place], [place], [id number], 16:45:06 Patient TargetsNo targets recorded. Patient Instructions Encounter Date Encounter Id Patient Instructions Last Modified By Organization Details Last Modified Time 05/22/2024 [id number] Nursing Documentation for Allergy Testing: Ordering Provider [...] and peak flow, recommended pt to see fiberglass laminator and talk to primary care doctor. Written by: Catherine Erwin [email or web address] Not available 05/22/2024 13:49:42 10/06/2024 [id number] Nursing Documentation for Allergy Testing (Split Test): Vital Signs: Blood Pressure:159/71 Pulse: 77 Oxygen Saturation: 98 > % Weight:140 lbs: kg: History of asthma: No Asthma Meds: . last used: Chance that : No Antihistamine use: No Med used: Nursing notes: Patient tolerated procedure well Yes Benadryl cream to test sites Yes Patient became syncopal-placed in supine position No Testing Performed by: Catherine Erwin Requesting Provider Dr. Cifuentes [email or web address] Not available 10/06/2024 15:46:09 Reason for Referral None Reported. Results Created Date Observation Date Name Description Value Unit Range Abnormal Flag Note LastModifiedBy Organization Detail LastModifiedTime 05/23/19 25 ashia metry testi ng* No observ ation record ed. [email or web address] Not Available 05/13 16:54:48 Result Notes None recorded. Problems Name Problem SNOMED Code Status Onset Date Resolution Date Notes Provider Name and Address Organization Details Recorded Time Chronic rhinitis 37269905 Active 2013 Chronic pharyngit is and nasophary ngitis: Chronic rhinitis; CMS Risk: low risk [facility] Treatment : new problem (to examiner) : no additiona l workup planned N ote: Date Diagnosed : 12/19/2013 12:00 PM (472.0) Not Available [facility] 4 02:46:56 Allergic rhinitis 55253142 Active 2015 Other allergic rhinitis; Note: Changed from J30.9 to J30.89 ( 6 4:25 PM) , Date Diagnosed : 01/22/2016 3:54 PM (J30.9) Not Available [facility] 4 02:46:49 Pain of right temporoma ndibular joint [id number] 536790 Active 2016 Arthralgi a of right temporoma ndibular joint; Note: Date Diagnosed : 04/22/2016 1:59 PM (M26.621) Not Available [facility] 4 02:46:53 Posterior rhinorrhe a 22425269 Active 2016 Postnasal drip; Note: Date Diagnosed : 04/22/2016 1:54 PM (R09.82) Not Available [facility] 4 02:46:55 Nasal congestio n 71718638 Active 2016 Nasal congestio n; Note: Date Diagnosed : 04/22/2016 1:54 PM (R09.81) Not Available [facility] 4 02:46:53 Follow-up visit Active 2016 Encounter for follow-up examinati on after completed treatment for condition s other than malignant neoplasm; Note: Date Diagnosed : 7 4:29 PM (Z09) Not Available [facility] 4 02:46:56 Migraine 44286598 Active 2017 Other migraine, not intractab le, without status migrainos us; Note: Date Diagnosed : 03/25/2017 12:19 PM (G43.809) Not Available [facility] 4 02:46:55 Dizziness and giddiness 709524703 Active 2017 Dizziness and giddiness ; Note: Date Diagnosed : 03/25/2017 11:43 AM (R42) Not Available [facility] 4 02:46:55 Tinnitus of left ear 35249785920 06 Active 2017 Tinnitus, left ear; Note: Date Diagnosed : 03/25/2017 11:55 AM (H93.12) Not Available [facility] 4 02:46:57 Gastroeso phageal reflux disease without esophagit is 837135086 Active 2017 Gastro-es ophageal reflux disease without esophagit is; Note: Date Diagnosed : 8 9:31 AM (K21.9) Not Available [facility] 4 02:46:51 Dysphasia 27647020 Active 2017 Dysphasia ; Note: Date Diagnosed : 8 9:31 AM (R47.02) Not Available [facility] 4 02:46:56 Headache 50814017 Active 2018 Headache, unspecifi ed; Note: Changed from R51 to R51.9 ( 1 3:43 PM) , Date Diagnosed : 04/08/2018 12:10 PM (R51) Not Available [facility] 4 02:46:52 Bilateral temporoma ndibular joint pain 69836931291 129978 Active 2018 Arthralgi a of bilateral temporoma ndibular joint; Note: Date Diagnosed : 07/27/2018 1:25 PM (M26.623) Not Available [facility] 4 02:46:53 Acute sinusitis 37898648 Active 2020 Other acute sinusitis ; Note: Date Diagnosed : 08/15/2020 1:41 PM (J01.80) Not Available [facility] 4 02:46:57 Sensorine ural hearing loss of bilateral ears 496427830 Active 2020 Sensorine ural hearing loss, bilateral ; Note: Date Diagnosed : 1 12:18 PM (H90.3) Not Available [facility] 4 02:46:50 Acute pharyngit is 697779305 Active 2022 Sore throat (acute) NOS; Note: Date Diagnosed : 3 12:47 PM (J02.9) Not Available [facility] 4 02:46:56 Nasal mucosa dry 56835003 Active 2023 Queta mitchell, [place] - [facility] 4 11:02:24 Anterior rhinorrhe a 615297387 Active 2024 ANGELIKA RODRÍGUEZ PA-C [address], [facility] [place], [address] , [facility] - [facility] [place] 5 16:32:07 Atypical facial pain 04842320 Active 2024 ANGELIKA RODRÍGUEZ PA-C [address], [place], [address] , [facility] - [facility] 5 16:43:52 Non-aller gic rhinitis 77529791185 1 Active 2024 ANGELIKA RODRÍGUEZ PA-C [address], [facility] [place], [address] , [facility] - [facility] [place] 5 16:44:24 Seasonal allergic rhinitis 554138496 Active 2024 ANGELIKA RODRÍGUEZ PA-C [address], [place], [address] , [facility] - [facility] 5 16:44:24 Chronic obstructi ve pulmonary disease 57859631 Active 2024 CARLOS LOMELI MD [address], [facility] [place], [address] , [facility] - [facility] 5 14:10:02 Perennial allergic rhinitis 119016544 Active 2024 ROSA GUZMÁN [address], [place], [address] , [facility] 5 14:51:10 Problem Notes None recorded. Procedures Surgical History Date Name Laterality Status Provider Name and Address Organization Details Recorded Time 5 Allergy Testing-Full completed ROSA GUZMÁN 100 [facility],[address] [address], [place], [address], [facility] 10/06/2024 15:45:24 5 Nasal Endoscopy completed ANGELIKA RODRÍGUEZ PA-C 100 [facility],[address] [address], [place], [address], [facility] 04/26/2024 16:39:27 screening colonoscopy completed Magy Hassan [facility] 11/17/2024 14:09:12 Imaging Results None recorded. Procedure Notes None recorded. Medical Equipment None Reported. Allergies Allergen ID Allergen Name Allergen Category Reaction Reaction Severity Criticality Documentation Date Start Date Code Code System Note Provider Name and Address Organization Details Recorded Time 097625 prednisol one medicatio n hallucina tions Not available Not available 05/22/2024 8638 RxNorm ROSA GUZMÁN 100 [facility] [address], [address], [facility] 5 13:01:00 Medications Name Sig Start Date Stop Date Status Note LastModified by Organization Details LastModified Time Prescript ion - Prior Authoriza tion Request active Script Copy/La or Auth^Scr ipt Copy/La or Auth_ 62810 Not Available Not Available Not Available melatonin tr 10 mg tbcr active Not Available Not Available Not Available melatonin prolonged release 10 mg tbcr active Not Available Not Available Not Available amoxicill in 500 mg capsule TAKE ONE CAPSULE EVERY 8 HOURS UNTIL FINISHED active Not Available Not Available No t Available gabapenti n 600 mg tablet TAKE 1 TAB BY MOUTH IN THE MORNING AND 2 TABS AT NIGHT active Not Available Not Available No t Available doxycycli ne hyclate 100 mg capsule by mouth 08/15 completed Medicati on ID: [id number] D uration Value: 10 Prescri bed By [...] 1 TABLET DAILY FOR 4 DAYS DIRECTED 10/06 completed Not Available Not Available Not Available tizanidin e 4 mg tablet TAKE 1 TABLET ORALLY 3 TIMES PER DAY NEEDED 05/22 completed Not Available Not Available Not Available fluconazo le 150 mg tablet TAKE 1 TABLET BY MOUTH MAY TAKE 1 TABLET 72 HOURS LATER IF SYMPTOMS HAVE NOT IMPROVED . 10/06 completed Not Available Not Available Not Available phenazopy ridine 200 mg tablet 05/22 completed Medicati on ID: [id number] B rand Name: phenazop yridine Send Method: [...] mg tablet 12/30 completed Medicati on ID: [id number] D uration Value: 8 Brand Name: ondanset antony HCl Send Method: E-Prescr ibed Sub s Allowed: subs OK Medic ationGen ericName : ondanset antony HCl Not Available Not Available Not Available prednison e 20 mg tablet 2 tablet by mouth 07/06/ 2021 10/18 /2021 completed Medicati on ID: [id number] D uration Value: 5 Prescri bed By [...] Not Available Not Available No t Available acetamino phen 500 mg tablet TAKE 2 TABLETS BY MOUTH 3 TIMES A DAY NEEDED FOR FEVER/PA IN active Not Available Not Available No t Available butalbita l-acetami nophen-ca ffeine 50 mg-325 mg-40 mg tablet 12/30 completed Medicati on ID: [id number] D uration Value: 2 Brand Name: butalbit al-aceta minophen -caff Se nd Method: E-Prescr ibed Sub s Allowed: subs OK Medic ationGen ericName : butalbit al-aceta minophen -caff Not Available Not Available Not Available ondansetr on 8 mg disintegr ating tablet PLACE 1 TABLET ON TONGUE EVERY 8 HOURS NEEDED FOR NAUSEA/V OMITING active Not Available Not Available No t Available carbamaze pine 200 mg tablet 12/30 completed Medicati on ID: [id number] D uration Value: 30 Brand Name: carbamaz epine Se nd Method: E-Prescr ibed Sub s Allowed: subs OK Medic ationGen ericName : carbamaz epine Not Available Not Available Not Available lorazepam 0.5 mg tablet 10/06 completed Not Available Not Available Not Available tamsulosi n 0.4 mg capsule 05/22 completed Not Available Not Available Not Available dicyclomi ne 20 mg tablet TAKE 1 TABLET BY MOUTH BEFORE MEALS AND AT BEDTIME FOR STOMACH PAIN/SPA SMS active Not Available Not Available No t Available hyoscyami ne sulfate 0.125 mg tablet TAKE 1 TABLET ORALLY 2 TIMES A DAY NEEDED FOR DYSPEPSI A 05/22 completed Not Available Not Available Not Available tacrolimu s 0.1 % topical ointment active Not Available Not Available Not Available nitrofura ntoin macrocrys jairo 100 mg capsule TAKE 1 CAPSULE BY MOUTH TWICE A DAY FOR 5 DAYS active Not Available Not Available No t Available triamcino lone acetonide 0.1 % topical ointment active Not Available Not Available Not Available metronida zole 0.75 % topical cream 10/06 completed Not Available Not Available Not Available bupropion [...] capsule 01/05 completed Medicati on ID: [id number] [place] son: () Brand Name: gabapent in Send Method: E-Prescr ibed Sub s Allowed: subs OK Medic ationGen ericName : gabapent in Not Available Not Available Not Available omeprazol e 20 mg capsule,d elayed release TAKE 1 CAPSULE BY MOUTH EVERY DAY NEEDED ACID REFLUX active Not Available Not Available No t Available lisinopri l 5 mg tablet 07/08 completed Medicati on ID: [id number] [place] son: () Brand Name: lisinopr il Send Method: E-Prescr ibed Sub s Allowed: subs OK Medic ationGen ericName : lisinopr il Not Available Not Available Not Available zolpidem 5 mg tablet 10/06 completed Not Available Not Available Not Available bethanech ol chloride 50 mg tablet TAKE 1 TABLET (50 MG) ORALLY 2 TIMES A DAY FOR 30 DAYS active Not Available Not Available No t Available azelastin e 137 mcg (0.1 %) nasal spray Use 2 sprays into each nostril twice daily for runny nose 2024 active Not Available Not Available Not Avai lable hydroxych loroquine 200 mg tablet TAKE 1 AND 1/2 TABLET (300 MG) BY MOUTH DAILY active Not Available Not Available No t Available ibuprofen 600 mg tablet TAKE ONE TABLET EVERY 6 HOURS NEEDED MILD PAIN active Not Available Not Available No t Available levofloxa mignon 500 mg tablet TAKE 1 TABLET BY MOUTH EVERY DAY FOR 7 DAYS 05/22 completed Not Available Not Available Not Available estradiol 0.01% (0.1 mg/gram) vaginal cream APPLY A PEA SIZED AMOUNT TO URETHRA 3 TIMES A WEEK active Not Available Not Available No t Available zolpidem 10 mg tablet 07/08 completed Medicati on ID: [id number] [place] son: () Brand Name: zolpidem Send Method: E-Prescr ibed Sub s Allowed: subs OK Medic ationGen ericName : zolpidem Not Available Not Available Not Available albuterol sulfate HFA 90 mcg/actua tion aerosol inhaler INHALE 1 PUFF 4 TIMES A DAY NEEDED FOR SHORTNES S OF BREATH OR WHEEZING FOR 30 DAYS active Not Available Not Available No t Available hydrocort isone 2.5 % topical ointment [...] topical cream 12/30 completed Medicati on ID: [id number] D uration Value: 23 Brand Name: doxepin [...] mg tablet 03/23 completed Medicati on ID: [id number] D uration Value: 1 Brand Name: diazepam Send Method: E-Prescr ibed Sub s Allowed: subs OK Medic ationGen ericName : diazepam Not Available Not Available Not Available amoxicill in 875 mg-potass ium clavulana te 125 mg tablet TAKE 1 TABLET BY MOUTH TWICE A DAY FOR 7 DAYS active Not Available Not Available No t Available Denta 5000 Plus 1.1 % cream [place] teeth for 2 minutes, morning and night. Spit, do not rinse. Do not eat or drink anything for 30 minutes followin g use. active Not Available Not Available No t Available escitalop qasim 10 mg tablet 03/23 completed Not Available Not Available Not Available escitalop qasim 20 mg tablet active Not Available Not Available Not Available bupropion HCl XL 150 mg 24 hr tablet, extended release 03/23 completed Medicati on ID: [id number] D uration Value: 30 Brand Name: bupropio n HCl Send Method: E-Prescr ibed Sub s Allowed: subs OK Speci al Instruct ion: TAKE 1 TABLET EVERY MORNING Medicati onGeneri cName: bupropio n HCl Not Available Not Available Not Available escitalop qasim 5 mg tablet 07/08 completed Medicati on ID: [id number] D uration Value: 30 Reason: () Brand [...] pitts Not Available Not Available Not Available Breo Ellipta 100 mcg-25 mcg/dose powder for inhalatio n INHALE 1 PUFF INTO THE LUNGS DAILY FOR ASTHMA FOR 30 DAYS active Not Available Not Available No t Available Vitals Date Recorded Body height Body weight Provider Name and Address Organization Details Last Updated DateTime 2024 157.48 cm 54330.93 g Lorenza Villarreal [place] - [facility] 2024 10:20:24 Date Recorded Body height Body mass index (BMI) Body weight Provider Name and Address Organization Details Last Updated DateTime 04/26/2024 157.48 cm 25.6 kg/m2 40294.93 g Magy Hassan [place] - [facility] 04/26/2024 16:06:43 Date Recorded Body height Oxygen saturation Oxygen saturation in Arterial blood by Pulse oximetry Body mass index (BMI) Body weight Heart rate Systolic And Diastolic Provider Name and Address Organization Details Last Updated DateTime 157.48 cm 98 % 98 % 25.6 kg/m2 85179.9 3 g 71 /min 122/65 mm[Hg] CATHERINE ERWIN [address], [address] 5 13:45:21 Date Recorded Body height Oxygen saturation Oxygen saturation in Arterial blood by Pulse oximetry Heart rate Body mass index (BMI) Body weight Systolic And Diastolic Provider Name and Address Organization Details Last Updated DateTime 157.48 cm 98 % 98 % 77 /min 25.6 kg/m2 10436.9 3 g 159/71 mm[Hg] CATHERINE ERWIN Dax [address] [place] [address], [address], [facility] 14:44:00 Date Recorded Body height Body mass index (BMI) Body weight Provider Name and Address Organization Details Last Updated DateTime 11/17/2024 157.48 cm 26.2 kg/m2 30680.71 g Magy Hassan [place] - [facility] 11/17/2024 14:07:59 Social History None recorded. Functional Status Question Answer Note LastModified by Organizat ion Details LastModified Time What is your level of alcohol consumption? Occasional [email or web address] Information not available 11/17/2024 Mental Status None recorded. Family History Nothing Reported. Medical History Condition Response Allergies/Hayfever Y Heart Problems N Anxiety Y Tonsil Infections N Emphysema N Migraines N Thyroid Problems N Glaucoma Y Developmental Delay N Depression Y COPD N Nasal or Sinus Problems Y Anemia N Immune System Disorder N Anesthesia Complications N Heart Attack (PA) Y Other Skin Condition Y Diabetes N Rhinitis N Bleeding Disorder N Food Allergy N Hearing Loss N Arthritis Y Hyperlipidemia N Eczema Y Cancer N Stroke N Dementia N Nasal [...] Diagnosis SNOMED-CT Code Diagnosis ICD10 Code Diagnosis IMO Codes Diagnosis Note [id number] QUETA MATTHEWS PA-C [facility] [address] [address] 09/21/2023 10:18:14 09/21/2023 10:37:56 Vasomotor rhinitis 3606621 J30.0 Nasal mucosa dry 3584890 2 J34.89 [id number] QUETA MATTHEWS PA-C [facility] [address] [address] 2024 10:14:30 2024 10:41:37 Acute sinusitis 08989914 J01.90 Nasal congestion 1333950 0 R09.81 Nasal mucosa dry 5785861 2 J34.89 Vasomotor rhinitis 23558 03 J30.0 Posterior rhinorrhea 758 26894 R09.82 [id number] ANGELIKA RODRÍGUEZ PA-C [facility] [address] [address] 04/26/2024 16:01:00 04/26/2024 16:33:24 Posterior rhinorrhea 21690824 R09.82 Anterior rhinorrhea 2772 22093 J34.89 Allergic rhinitis 321052 04 J30.9 Headache 68260501 R51.9 [id number] CATHERINE ERWIN [facility] Allergy 100 [facility],[address] [address] 05/22/2024 12:32:38 05/22/2024 13:55:12 Allergic rhinitis 99792011 J30.9 [id number] CATHERINE ERWIN [facility] Allergy 100 [facility],[address] [address] 10/06/2024 14:26:22 10/06/2024 15:49:53 Perennial allergic rhinitis 435520114 J30.89 [id number] ANGELIKA RODRÍGUEZ PA-C [facility] [address] [place] [address] 11/17/2024 13:50:54 11/17/2024 14:31:13 Allergic rhinitis 21392856 J30.9 Health Concerns Section Related Observation LastModified by Organization Detai ls LastModified Time None Recorded Concern Status LastModified by Organization Details LastModified Time None Recorded Advance Directives Directive None Recorded Payers Insurance Date Sequence Insurance Name Policy Number Policy Kuo Covered Member ID Kuo Member ID Guarantor Name 11/17/2024 2 [place] [facility] Jessa Bowerella [id number] Jessa Bowerella 11/17/2024 1 [facility] (MEDICARE REPLACEMENT/ ADVANTAGE - HMO) [facility] Jessa Bowerella [id number] Jessa Bowerella 10/06/2024 2 [place] [facility] Jessa Bowerella [id number] Jessa Minor Notes Date Note Type Note Provider Name and Address Organization Details Recorded Time 2024 text/html ROS as noted in the HPI 69 year old female presents for follow up on gustatory rhinitis [...] stopped her fluticasone. TY SMITH MD 100 [facility],[address], [address], [facility] - [facility] [place] 2024 16:46:20 04/26/2024 text/html ROS as noted in the [facility] 69yo female with PND and gustatory rhinorrhea [...] has lupus and is closely followed by [place] [facility]. TY SMITH MD 100 [facility],[address], [address], [facility] 04/26/2024 17:40:05 11/17/2024 text/html ROS as noted in the [facility] 69-year-old female with posterior rhinorrhea presents for allergy test results. Skin allergy testing demonstrated moderate sensitivity to two molds and Gerardo grass. Patient reports the postnasal drip is intermittent, and denies all other allergy symptoms. Her migraines are well-controlled. She is closely followed by [place] [facility] for lupus. TY SMITH MD 100 [facility],[address], [address], [facility] 11/20/2024 07:50:03 OBGyn Episode No OBEpisode recorded.
== END 2025-01-10 15:21 | disposition home or self-care (01) ==
LOC: HO.HUSH 14:33
PROVIDERS: PCP Internal Medicine; Visit Provider Nurse Practitioner Family
DX: N28.1 Cyst of kidney, acquired (principal); R33.9 Retention of urine, unspecified; N39.0 Urinary tract infection, site not specified; Z13.9 Encounter for screening, unspecified
CPT/HCPCS: 99213; G2211

== ENCOUNTER → 2025-01-10 14:32 | Outpatient (BNVA) | payer OTHER, SELFPAY | PROVIDERS: PCP Internal Medicine; Visit Provider Nurse Practitioner Family | DX: N28.1 Cyst of kidney, acquired (principal); N39.0 Urinary tract infection, site not specified; R33.9 Retention of urine, unspecified | CPT/HCPCS: 51798; 81003; 99212 ==

== ENCOUNTER 2025-01-31 09:44 | Outpatient (REF) | payer OTHER, SELFPAY ==
--- OUTSIDE RECORDS SUMMARY | 2024-01-07 06:00 | XMS_ITS ---
Author Organization [facility] Address [address] [place] [address] Care Team Providers Care Vacuum Cleaner Repairer Name Role Phone Nae LILLY, Osiris Primary Care Provider Alban Gerard Jr [phone] REASON FOR VISIT screening Encounters Encounter Location Date Provider Diagnosis [facility] [place] Out[place] [address] [place] [id number] 01/07/2024 Alban Lopez Jr Colon cancer screening Z12.11 and Family history of colon cancer Z80.0 Assessments Encounter Date Diagnosis (ICD Code) Assessment Notes Treatment Notes Treatment Clinical Notes Section Notes 01/07/2024 Colon cancer screening (ICD-10 - Z12.11) 01/07/2024 Family history of colon cancer (ICD-10 - Z80.0) Plan Of Treatment No Information Progress Notes * PAULETTE SERRANO MDOB:1955 (69 yo F)Acc No.[id number]:01/07/2024 COLON WITH MAC Patient: Eloy HAHN PAULETTE Nam Provider: Melodie Lopez MD :1955 A ge:68 Y S ex:Female Date:01/07/2024 Address:[address] [place], [place] [id number] Pcp:Osiris Soni MD Subjective: * Chief Complaints: * S creening Assessment: * Assessment: 1. C olon cancer screening - Z12.11 (Primary) 2 . F amily history of colon cancer - Z80.0 Plan: * Procedure Codes: 4 5378 DIAGNOSTIC [id number] INTRVL 3+YRS PTS CLNSCP [id number] RCMND FLW-UP 10 YRS DOCD, Modifiers: 1P Billing Information: * Procedure Codes: 77763 DIAGNOSTIC COLONOSCOPY. 0529F INTRVL 3+YRS PTS CLNSCP DOCD. 0528F RCMND FLW-UP 10 YRS DOCD. Modifiers: 1P * The named appointment provid er may or may not be the originator of this progress note, and it is not deemed complete until electronically signed by the appointment provider. Sign off status: Pending * Provider: Melodie Lopez MD Date: Generated for Ye yepez/Jignesh/Tiffaniitting on: 04/02/2024 06:01 PM EST
--- OUTSIDE RECORDS SUMMARY | 2025-01-29 10:30 | XMS_ITS | Encounter Summary ---
Author Organization [employer] Address [address] [facility] [address] [place] [address] Care Team Providers Care Oracle Apex Developer Name Role Phone Unavailable Primary Care Provider Unavailabl e Reason for Visit * Reason Comments Dentures impressions Encounter Details Date Type Department Care Team (Late st Contact Info) Description 01/29/2025 10:30 AM EST Office Visit [facility] [address] [place] [address] Pancho Butcher DDS [address] [place] [address] Social History Tobacco Use Types Packs/Day Years Used Date Smoking Tobacco: Former Cigarettes Passive Smoke Exposure: Never Smokeless Tobacco: Never Alcohol Use Standard Drinks/Week Comments Defer 0 (1 standard drink = 0.6 oz pur e alcohol) Comments Unknown Sex and Gender Information Value Date Recorded Sex Assigned at Female 01/12/2022 10:17 AM EDT Legal Sex Female 10:17 AM EDT Gender Identity Male 01/12/2022 10:17 AM EDT Sexual Orientation Straight 01/12/2022 10 :17 AM EDT documented as of this encounter Progress Notes * Pancho Butcher DDS - 01/29/2025 10:30 AM EST Dental procedures in this visit D5750.1 - DENTURE IMPRESSION (Completed) Service provider: Pancho Butcher DDS Billing provider: Randi Graham DDS D9450 - CASE PRESENTATION, DETAILED AND EXTENSIVE TREATMENT PLANNING (Completed) Service provider: Pnacho Butcher DDS Billing provider: Randi Graham DDS Patient ID: Jessa Minor is a 69 y.o. adult. Time Out: Date: 01/29/2025 Location: [facility] Tooth: Maxilla and Mandible Procedure: Dentures and Impressions Verified the above with patient, pastry assistant, and provider. Confirmed via patient's chart, intraorally and by radiographs. Senior Packaging Engineer: not applicable Upper and lower arch alginate impressions made by Dr. Pancho Butcher DDS for upper and lower acrylicpartial denture Risk, benefits, and alternatives discussed with the patient. CONSENT FORM INITIALED & SIGNED BY THE PATIENT AND COUNTERSIGNED BY DR. Pancho Butcher DDS Medical history: Reviewed in EHR Vitals: There were no vitals taken for this visit. Allergies: Reviewed in EHR Medications: Reviewed in EHR - Upper and lower alginate impressions made. - Case to be sent to: [facility] for upper and lower custom tray for border molding - Case asked to be back on: 02/12/2025 Patient satisfied, left in stable condition NV: Bite Registration Provider: Dr. Pancho Butcher DDS Supervising Dentist: Dr. Randi Graham Note: AWAITING PRIOR AUTHORIZATION * Randi Graham DDS - 01/29/2025 10:30 AM EST I have reviewed the documentation and dental procedures completed by the rendering provider, Pancho Butcher DDS, and approve their chart entries for this visit. NILA Cardona DDS documented in this encounter Plan of Treatment Upcoming Encounters Date Type Department Care Team (Late st Contact Info) Description 07/25/2025 10:15 AM EDT Office Visit [facility] [address] [place] [address] Cameron Salgado documented as of this encounter Procedures Procedure Name Priority Date/Time Associated Diagnosis Comments DENTURE IMPRESSION Routine 01/29/2025 10 :30 AM EST CASE PRESENTATION, DETAILED AND EXTENSIVE TREATMENT PLANNING Routine 01/29/2025 10:30 AM EST documented in this encounter Visit Diagnoses Not on filedocumented in this encounter
--- NOTE | ~2025-01-31 | US_ITS ---
CLINICAL HISTORY: R74.01 - Elevation of levels of liver transaminase levels US abdomen complete. COMPARISON: None provided. Technique: Real time sonographic imaging, including color-flow imaging, was performed by the photocomposing machine operator. Multiple sales representative jewelry static images were saved for review. FINDINGS: The visualized aorta and inferior vena cava are normal caliber. The visualized portions of the pancreas appear normal. The liver has normal echotexture. The main portal vein is antegrade. Liver, right lobe size: 12.8 cm, normal. The gallbladder is normal in size. No cholelithiasis or sludge identified. There is a negative sonographic Perez's sign. Gallbladder wall: 2 mm, normal. Common bile duct: 7 mm, normal. Right kidney: Cortical medullary differentiation is maintained. No calculus or focal parenchymal abnormality identified. No hydronephrosis. Right kidney length: 9.6 cm Left kidney: Cortical medullary differentiation is maintained. Left renal simple cyst in the midportion measuring 0.8 cm. No hydronephrosis. Left kidney length: 11.5 cm The spleen has normal echogenicity. Splenic length: 9.4 cm, normal. No free intraperitoneal fluid identified. IMPRESSION: 1. No acute findings. No evidence of cholecystitis or renal obstruction. This document has been electronically signed by: Nick Dennis MD on 01/31/2025 13:34:12
--- OUTSIDE RECORDS SUMMARY | 2025-01-31 18:01 | XMS_ITS | Encounter Summary ---
Author Organization [facility] Address [address] [place] [address] Phone Care Team Providers Care Upper Tier Name Role Phone Osiris Soni MD Primary Care Provider Encounter Details Date Type Department Care Team (Late st Contact Info) Description 06/03/2017 Ancillary [facility] [address] [place] [address] Donte Chris DO [address] [place] [address] Palpitations Social History Tobacco Use Types Packs/Day [...] Palpitations documented in this encounter Care Teams Upper Tier Relationship Specialty Start Date End Date Osiris Soni MD [facility] [place] [address] PCP - General Internal Medicine 06/03/17 documented as of this encounter Additional Source Comments The information contained in this document represents components of the legal health record. It is not the complete legal health record.[facility]
--- OUTSIDE RECORDS SUMMARY | 2025-01-31 18:01 | XMS_ITS | Encounter Summary ---
Author Organization [facility] Address [address] [facility] [address] [place] [address] Care Team Providers Care Gifted Program Teacher Name Role Phone Unavailable Primary Care Provider Unavailabl e Encounter Details Date Type Department Care Team (Late st Contact Info) Description 01/29/2025 Telephone [facility] [address] [place] [address] Pancho Butcher DDS [address] [facility] [place] [address] Social History Tobacco Use Types Packs/Day Years [...] AM EDT documented as of this encounter Miscellaneous Notes * Telephone Encounter - Deepika Mondragon - 01/29/2025 1:14 PM EST LVM to let PT know we need to send in another PA since hers had documented in this encounter Plan of Treatment Upcoming Encounters Date Type Department Care Team (Late st Contact Info) Description 07/25/2025 10:15 AM EDT Office Visit [facility] [address] [place] [address] Cameron Salgado documented as of this encounter Visit Diagnoses Not on filedocumented in this encounter
--- OUTSIDE RECORDS SUMMARY | 2025-01-31 18:01 | XMS_ITS | Continuity of Care Document ---
Author Organization [facility] - [facility], [facility] Address [address] [place] [address] Care Team Providers Care Jointer Operator Name Role Phone PENELOPE CORNELIUS Primary Care Provider [phone] Assessment Encounter Date Assessment Date Assessment LastModified by Organization Details LastModified Time 11/17/2024 11/17/2024 69-year-old female with allergic rhinitis and lupus presents with daughter for allergy test results. Skin allergy testing demonstrated moderate sensitivity to two molds and Gerardo grass. Examination today is unremarkable. We discussed observation versus rcwq-evv-harcsb r medication versus allergy immunotherapy. Patient agrees to observe and use allergy medications as needed as her symptoms are well-controlled at this time. She will return for reevaluation as needed. [email or web address] Not available 11/17/2024 18:09:19 Plan of Treatment Reminders Order Date Submit Date Provider Last Modified By Organization Details Last Modified Time Details Appointments None record ed. Lab None record ed. Referral None record ed. Procedures None record ed. Surgeries None record ed. Imaging None record ed. Medication Orders None record ed. Patient TargetsNo targets recorded. Patient InstructionsNo instructions recorded. Reason for Referral None Reported. Problems Name Problem SNOMED Code Status Onset Date Resolution Date Notes Provider Name and Address Organization Details Recorded Time Chronic rhinitis 94916524 Active 2013 Chronic pharyngit is and nasophary ngitis: Chronic rhinitis; CMS Risk: low risk CMS Treatment : new problem (to examiner) : no additiona l workup planned N ote: Date Diagnosed : 12/19/2013 12:00 PM (472.0) Not Available [facility] 4 02:46:56 Allergic rhinitis 38222223 Active 2015 Other allergic rhinitis; Note: Changed from J30.9 to J30.89 ( 6 4:25 PM) , Date Diagnosed : 01/22/2016 3:54 PM (J30.9) Not Available [facility] 4 02:46:49 Pain of right temporoma ndibular joint 10573722090 366941 Active 2016 Arthralgi a of right temporoma ndibular joint; Note: Date Diagnosed : 04/22/2016 1:59 PM (M26.621) Not Available [facility] 4 02:46:53 Posterior rhinorrhe a 18789019 Active 2016 Postnasal drip; Note: Date Diagnosed : 04/22/2016 1:54 PM (R09.82) Not Available [facility] 4 02:46:55 Nasal congestio n 84743817 Active 2016 Nasal congestio n; Note: Date Diagnosed : 04/22/2016 1:54 PM (R09.81) Not Available [facility] 4 02:46:53 Follow-up visit Active 2016 Encounter for follow-up examinati on after completed treatment for condition s other than malignant neoplasm; Note: Date Diagnosed : 7 4:29 PM (Z09) Not Available [facility] 4 02:46:56 Migraine 58996206 Active 2017 Other migraine, not intractab le, without status migrainos us; Note: Date Diagnosed : 03/25/2017 12:19 PM (G43.809) Not Available [facility] 4 02:46:55 Dizziness and giddiness 255985234 Active 2017 Dizziness and giddiness ; Note: Date Diagnosed : 03/25/2017 11:43 AM (R42) Not Available [facility] 4 02:46:55 Tinnitus of left ear 08833008493 06 Active 2017 Tinnitus, left ear; Note: Date Diagnosed : 03/25/2017 11:55 AM (H93.12) Not Available [facility] 4 02:46:57 Gastroeso phageal reflux disease without esophagit is 773219049 Active 2017 Gastro-es ophageal reflux disease without esophagit is; Note: Date Diagnosed : 8 9:31 AM (K21.9) Not Available [facility] 4 02:46:51 Dysphasia 69221347 Active 2017 Dysphasia ; Note: Date Diagnosed : 8 9:31 AM (R47.02) Not Available [facility] 4 02:46:56 Headache 77162870 Active 2018 Headache, unspecifi ed; Note: Changed from R51 to R51.9 ( 1 3:43 PM) , Date Diagnosed : 04/08/2018 12:10 PM (R51) Not Available [facility] 4 02:46:52 Bilateral temporoma ndibular joint pain 00440496229 927065 Active 2018 Arthralgi a of bilateral temporoma ndibular joint; Note: Date Diagnosed : 07/27/2018 1:25 PM (M26.623) Not Available [facility] 4 02:46:53 Acute sinusitis 78872693 Active 2020 Other acute sinusitis ; Note: Date Diagnosed : 08/15/2020 1:41 PM (J01.80) Not Available [facility] 4 02:46:57 Sensorine ural hearing loss of bilateral ears 879398846 Active 2020 Sensorine ural hearing loss, bilateral ; Note: Date Diagnosed : 1 12:18 PM (H90.3) Not Available [facility] 4 02:46:50 Acute pharyngit is 428048092 Active 2022 Sore throat (acute) NOS; Note: Date Diagnosed : 3 12:47 PM (J02.9) Not Available [facility] 4 02:46:56 Nasal mucosa dry 04168818 Active 2023 Jyoti mitchell [place] - [facility] 4 11:02:24 Anterior rhinorrhe a 900960306 Active 2024 ANGELIKA RODRÍGUEZ PA-C [address], [facility] [place], [address] , [place] - [facility] 5 16:32:07 Atypical facial pain 32625979 Active 2024 ANGELIKA RODRÍGUEZ PA-C [address], [facility] [place], [address] , [place] - [facility] 5 16:43:52 Non-aller gic rhinitis 90878460963 1 Active 2024 ANGELIKA RODRÍGUEZ PA-C [address], [facility] [place], [address] , [place] - [facility] 5 16:44:24 Seasonal allergic rhinitis 032955880 Active 2024 ANGELIKA RODRÍGUEZ PA-C [address], [facility] [place], [address] , [place] - [facility] 5 16:44:24 Chronic obstructi ve pulmonary disease 28824505 Active 2024 CARLOS LOMELI MD [address] [place],[address] [facility], [facility] [place], [address] , [place] - [facility] 5 14:10:02 Perennial allergic rhinitis 192982732 Active 2024 ROSA GUZMÁN [address], [place], [address] , [place] - [facility] 5 14:51:10 Problem Notes None recorded. Procedures Surgical History Date Name Laterality Status Provider Name and Address Organization Details Recorded Time 5 Allergy Testing-Full completed ROSA GUZMÁN [address] [facility], [place], [address], [place] - [facility] 10/06/2024 15:45:24 5 Nasal Endoscopy completed ANGELIKA RODRÍGUEZ PA-C [address], [place], [address], [place] - [facility] 04/26/2024 16:39:27 screening colonoscopy completed Magy Hassan [facility] 11/17/2024 14:09:12 Imaging Results None recorded. Procedure Notes None recorded. Medical Equipment None Reported. Allergies Allergen ID Allergen Name Allergen Category Reaction Reaction Severity Criticality Documentation Date Start Date Code Code System Note Provider Name and Address Organization Details Recorded Time 380560 prednisol one medicatio n hallucina tions Not available Not available 05/22/2024 8638 RxNorm BRYAN ERWIN, [address], [address] - [facility] 13:01:00 Medications Name Sig Start Date Stop [...] by mouth 08/15 completed Medicati on ID: [id number] D uration Value: 10 Prescri bed By [...] mg tablet 05/22 completed Medicati on ID: [id number] B rand Name: phenazop yridine Send Method: [...] mg tablet 12/30 completed Medicati on ID: [id number] D uration Value: 8 Brand Name: ondanset antony HCl Send Method: E-Prescr ibed Sub s Allowed: subs OK Medic ationGen ericName : ondanset antony HCl Not Available Not Available Not Available prednison e 20 mg tablet 2 tablet by mouth 12/30 completed Medicati on ID: [id number] D uration Value: 5 Prescri bed By [...] mg tablet 12/30 completed Medicati on ID: [id number] D uration Value: 2 Brand Name: butalbit [...] mg tablet 12/30 completed Medicati on ID: [id number] D uration Value: 30 Brand Name: carbamaz [...] capsule 01/05 completed Medicati on ID: [address] [place] son: () Brand Name: gabapent in Send Method: E-Prescr ibed Sub s Allowed: subs OK Medic ationGen ericName : gabapent in Not Available Not Available Not Available omeprazol e 20 mg capsule,d elayed release TAKE 1 CAPSULE BY MOUTH EVERY DAY NEEDED ACID REFLUX active Not Available Not Available No t Available lisinopri l 5 mg tablet 07/08 completed Medicati on ID: [address] [place] son: () Brand Name: lisinopr il Send [...] topical cream 12/30 completed Medicati on ID: [id number] D uration Value: 23 Brand Name: doxepin [...] mg tablet 03/23 completed Medicati on ID: [id number] D uration Value: 1 Brand Name: diazepam Send Method: E-Prescr ibed Sub s Allowed: subs OK Medic ationGen ericName : diazepam Not Available Not Available Not Available amoxicill in 875 mg-potass ium clavulana te 125 mg tablet TAKE 1 TABLET BY MOUTH TWICE A DAY FOR 7 DAYS active Not Available Not Available No t Available Denta 5000 Plus 1.1 % cream [place] teeth for 2 minutes, morning and night. [...] extended release 03/23 completed Medicati on ID: [id number] D uration Value: 30 Brand Name: bupropio n HCl Send Method: E-Prescr ibed Sub s Allowed: subs OK Speci al Instruct ion: TAKE 1 TABLET EVERY MORNING Medicati onGeneri cName: bupropio n HCl Not Available Not Available Not Available escitalop qasim 5 mg tablet 07/08 completed Medicati on ID: [id number] D uration Value: 30 Reason: () Brand [...] [place] son: () Brand Name: omeprazo le magnesiu m Send Method: E-Prescr ibed Sub s Allowed: subs OK Medic ationGen ericName : omeprazo le magnesiu m Not Available Not Available Not Available Breo Ellipta 100 mcg-25 mcg/dose powder for inhalatio n INHALE 1 PUFF INTO THE LUNGS DAILY FOR ASTHMA FOR 30 DAYS active Not Available Not Available No t Available Vitals Date Recorded Body height Body mass index (BMI) Body weight Provider Name and Address Organization Details Last Updated DateTime 11/17/2024 157.48 cm 26.2 kg/m2 95830.71 g Magy Hassan [place] - [facility] 11/17/2024 14:07:59 Social History None recorded. Functional Status Question Answer Note LastModified by Organizat ion Details LastModified Time What is your level of alcohol consumption? Occasional [email or web address] Information not available 11/17/2024 Mental Status None recorded. Family History Nothing Reported. Medical History Condition Response Allergies/Hayfever Y Heart Problems N Anxiety Y Tonsil Infections N Emphysema N Migraines N Thyroid Problems N COPD N Depression Y Developmental Delay N Glaucoma Y Nasal or Sinus Problems Y Anemia N Immune System Disorder N Anesthesia Complications N Heart Attack ([place]) Y Other Skin Condition Y Diabetes N [...] ICD10 Code Diagnosis IMO Codes Diagnosis Note [id number] ANGELIKA RODRÍGUEZ PA-C [facility] [address] [address] 11/17/2024 13:50:54 11/17/2024 14:31:13 Allergic rhinitis 05227856 J30.9 Health Concerns Section Related Observation LastModified by Organization Detai ls LastModified Time None Recorded Concern Status LastModified by Organization Details LastModified Time None Recorded Payers Encounter Date Sequence Insurance Name Policy Number Policy Kuo Covered Member ID Kuo Member ID Guarantor Name 11/17/2024 2 [place] [facility] Jessa Minor [id number] Jessa Minor 11/17/2024 1 [facility] (MEDICARE REPLACEMENT/ ADVANTAGE - HMO) [facility] [place]essa Minor [id number] Jessa Minor Notes Date Note Type Note Provider Name and Address Organization Details Recorded Time 11/17/2024 text/html ROS as noted in the HPI 69-year-old female with posterior rhinorrhea presents for allergy test results. Skin allergy testing demonstrated moderate sensitivity to two molds and Gerardo grass. Patient reports the postnasal drip is intermittent, and denies all other allergy symptoms. Her migraines are well-controlled. She is closely followed by [place] [facility] for lupus. TY SMITH MD [address] [place] [address], [place], [address], [facility] - [facility] 11/20/2024 07:50:03 OBGyn Episode No OBEpisode recorded.
--- OUTSIDE RECORDS SUMMARY | 2025-01-31 18:01 | XMS_ITS | Clinical Summary ---
[facility] Address [address] [place] [address] Care Team Providers Care Head Strength And Conditioning Coach Name Role Phone Osiris Soni MD Primary [...] Depression Screening 03/15/2024 COVID-19 Vaccine (1 - 2024-2 6 season) 2024 Influenza Vaccine (#1) 2024 RSV [...] age to complete this topic Care Teams Head Strength And Conditioning Coach Relationship Specialty Start Date End Date Osiris Soni MD [address] [place] [address] PCP - General Internal Medicine 06/06/11
--- OUTSIDE RECORDS SUMMARY | 2025-01-31 18:01 | XMS_ITS | Data Portability ---
Author Organization [place] - [facility], Allergy Address [address] [address] Care Team Providers Care Press Manager Name Role Phone PENELOPE CORNELIUS Primary Care Provider [phone] Assessment Encounter Date Assessment Date Assessment LastModified [...] benefit from immunotherapy if approved by her proprietary trader in [place]. All questions answered. [email or web address] Not available 04/26/2024 16:45:50 11/17/2024 11/17/2024 69-year-old female with allergic rhinitis and lupus presents with daughter for allergy test results. Skin allergy testing demonstrated moderate sensitivity to two molds and Gerardo grass. Examination today is unremarkable. We discussed observation versus [id number] medication versus allergy immunotherapy. Patient agrees to [...] 2024 025 [place] [employer], [address], [place], [place], [id number], 16:45:06 Patient TargetsNo targets recorded. Patient Instructions Encounter Date Encounter Id Patient Instructions Last Modified By Organization Details Last Modified Time 05/22/2024 [id number] Nursing Documentation for Allergy Testing: Ordering Provider [...] and peak flow, recommended pt to see securities underwriter and talk to primary care doctor. Written by: Catherine Erwin Not available 05/22/2024 13:49:42 10/06/2024 [id number] Nursing Documentation for Allergy Testing (Split Test): [...] by: Catherine Erwin Requesting Provider Dr. Cifuentes Not available 10/06/2024 15:46:09 Reason for Referral [...] Address Organization Details Recorded Time Chronic rhinitis 34897603 Active 2013 Chronic pharyngit is and nasophary ngitis: Chronic rhinitis; CMS Risk: low risk [facility] Treatment : new problem (to examiner) : no additiona l workup planned N ote: Date Diagnosed : 12/19/2013 12:00 PM (472.0) Not Available [facility] 4 02:46:56 Allergic rhinitis 03308523 Active 2015 Other allergic rhinitis; Note: Changed from J30.9 to J30.89 ( 6 4:25 PM) , Date Diagnosed : 01/22/2016 3:54 PM (J30.9) Not Available [facility] 4 02:46:49 Pain of right temporoma ndibular joint 31546317436 056773 Active 2016 Arthralgi a of right temporoma ndibular joint; Note: Date Diagnosed : 04/22/2016 1:59 PM (M26.621) Not Available [facility] 4 02:46:53 Posterior rhinorrhe a 62077129 Active 2016 Postnasal drip; Note: Date Diagnosed : 04/22/2016 1:54 PM (R09.82) Not Available [facility] 4 02:46:55 Nasal congestio n 56561155 Active 2016 Nasal congestio n; Note: Date Diagnosed : 04/22/2016 1:54 PM (R09.81) Not Available [facility] 4 02:46:53 Follow-up visit Active 2016 Encounter for follow-up examinati on after completed treatment for condition s other than malignant neoplasm; Note: Date Diagnosed : 7 4:29 PM (Z09) Not Available [facility] 4 02:46:56 Migraine 99881636 Active 2017 Other migraine, not intractab le, without status migrainos us; Note: Date Diagnosed : 03/25/2017 12:19 PM (G43.809) Not Available [facility] 4 02:46:55 Dizziness and giddiness 404237138 Active 2017 Dizziness and giddiness ; Note: Date Diagnosed : 03/25/2017 11:43 AM (R42) Not Available [facility] 4 02:46:55 Tinnitus of left ear 82247605739 06 Active 2017 Tinnitus, left ear; Note: Date Diagnosed : 03/25/2017 11:55 AM (H93.12) Not Available [facility] 4 02:46:57 Gastroeso phageal reflux disease without esophagit is 152207614 Active 2017 Gastro-es ophageal reflux disease without esophagit is; Note: Date Diagnosed : 8 9:31 AM (K21.9) Not Available [facility] 4 02:46:51 Dysphasia 74680490 Active 2017 Dysphasia ; Note: Date Diagnosed : 8 9:31 AM (R47.02) Not Available [facility] 4 02:46:56 Headache 70229327 Active 2018 Headache, unspecifi ed; Note: Changed from R51 to R51.9 ( 1 3:43 PM) , Date Diagnosed : 04/08/2018 12:10 PM (R51) Not Available [facility] 4 02:46:52 Bilateral temporoma ndibular joint pain 07462800308 669834 Active 2018 Arthralgi a of bilateral temporoma ndibular joint; Note: Date Diagnosed : 07/27/2018 1:25 PM (M26.623) Not Available [facility] 4 02:46:53 Acute sinusitis 27882673 Active 2020 Other acute sinusitis ; Note: Date Diagnosed : 08/15/2020 1:41 PM (J01.80) Not Available [facility] 4 02:46:57 Sensorine ural hearing loss of bilateral ears 422163007 Active 2020 Sensorine ural hearing loss, bilateral ; Note: Date Diagnosed : 1 12:18 PM (H90.3) Not Available [facility] 4 02:46:50 Acute pharyngit is 604655740 Active 2022 Sore throat (acute) NOS; Note: Date Diagnosed : 3 12:47 PM (J02.9) Not Available [facility] 4 02:46:56 Nasal mucosa dry 84381051 Active 2023 Queta mitchell, [place] - [facility] 4 11:02:24 Anterior rhinorrhe a 218547647 Active 2024 ANGELIKA RODRÍGUEZ PA-C [address], [facility] [place], [address] , [facility] - [facility] 5 16:32:07 Atypical facial pain 42604260 Active 2024 ANGELIKA RODRÍGUEZ PA-C [address], [place], [address] , [facility] - [facility] 5 16:43:52 Non-aller gic rhinitis 98567053814 1 Active 2024 ANGELIKA RODRÍGUEZ PA-C [address], [facility] [place], [address] , [facility] - [facility] 5 16:44:24 Seasonal allergic rhinitis 873596028 Active 2024 ANGELIKA RODRÍGUEZ PA-C [address], [place], [address] , [facility] - [facility] 5 16:44:24 Chronic obstructi ve pulmonary disease 04654997 Active 2024 CARLOS LOMELI MD [address], [facility] [place], [address] , [facility] - [facility] 5 14:10:02 Perennial allergic rhinitis 889919861 Active 2024 ROSA GUZMÁN [address], [place], [address] , [facility] 5 14:51:10 Problem Notes None recorded. Procedures Surgical History Date Name Laterality Status Provider Name and Address Organization Details Recorded Time 5 Allergy Testing-Full completed ROSA GUZMÁN 100 [facility],[address], [address], [facility] 10/06/2024 15:45:24 5 Nasal Endoscopy completed ANGELIKA RODRÍGUEZ PA-C 100 [facility],[place] [address], [place], [address], [facility] 04/26/2024 16:39:27 screening colonoscopy completed Magy Hassan [facility] 11/17/2024 14:09:12 Imaging Results None recorded. Procedure Notes None recorded. Medical Equipment None Reported. Allergies Allergen ID Allergen Name Allergen Category Reaction Reaction Severity Criticality Documentation Date Start Date Code Code System Note Provider Name and Address Organization Details Recorded Time [id number] prednisol one medicatio n hallucina tions Not available Not available 05/22/2024 8638 RxNorm ROSA GUZMÁN 100 [facility] [address], [place], [address], [facility] 5 13:01:00 Medications Name Sig Start [...] Auth_12 Not Available Not Available Not Available amoxicill [...] by mouth 08/15 completed Medicati on ID: [id number] D uration Value: 10 Prescri bed By [...] mg tablet 05/22 completed Medicati on ID: [id number] B rand Name: phenazop yridine Send Method: [...] mg tablet 12/30 completed Medicati on ID: [id number] D uration Value: 8 Brand Name: ondanset antony HCl Send Method: E-Prescr ibed Sub s Allowed: subs OK Medic ationGen ericName : ondanset antony HCl Not Available Not Available Not Available prednison e 20 mg tablet 2 tablet by mouth 07/06/ 2021 10/18 /2021 completed Medicati on ID: [id number] D uration Value: 5 Prescri bed By [...] mg tablet 12/30 completed Medicati on ID: [id number] D uration Value: 2 Brand Name: butalbit [...] mg tablet 12/30 completed Medicati on ID: [id number] D uration Value: 30 Brand Name: carbamaz [...] topical cream 12/30 completed Medicati on ID: [id number] D uration Value: 23 Brand Name: doxepin [...] mg tablet 03/23 completed Medicati on ID: [id number] D uration Value: 1 Brand Name: diazepam Send Method: E-Prescr ibed Sub s Allowed: subs OK Medic ationGen ericName : diazepam Not Available Not Available Not Available amoxicill in 875 mg-potass ium clavulana te 125 mg tablet TAKE 1 TABLET BY MOUTH TWICE A DAY FOR 7 DAYS active Not Available Not Available No t Available Denta 5000 Plus 1.1 % cream [place] teeth for 2 minutes, morning and night. [...] extended release 03/23 completed Medicati on ID: [id number] D uration Value: 30 Brand Name: bupropio n HCl Send Method: E-Prescr ibed Sub s Allowed: subs OK Speci al Instruct ion: TAKE 1 TABLET EVERY MORNING Medicati onGeneri cName: bupropio n HCl Not Available Not Available Not Available escitalop qasim 5 mg tablet 07/08 completed Medicati on ID: [id number] D uration Value: 30 Reason: () Brand [...] Details Last Updated DateTime 2024 157.48 cm 19741.93 g Lorenza Villarreal [place] [facility] 2024 10:20:24 Date Recorded Body height Body mass index (BMI) Body weight Provider Name and Address Organization Details Last Updated DateTime 04/26/2024 157.48 cm 25.6 kg/m2 87692.93 g Magy Hassan [place] [facility] 04/26/2024 16:06:43 Date Recorded Body height Oxygen saturation Oxygen saturation in Arterial blood by Pulse oximetry Body mass index (BMI) Body weight Heart rate Systolic And Diastolic Provider Name and Address Organization Details Last Updated DateTime 157.48 cm 98 % 98 % 25.6 kg/m2 06173.9 3 g 71 /min 122/65 mm[Hg] CATHERINE ERWIN [address], [address] 5 13:45:21 Date Recorded Body height Oxygen saturation Oxygen saturation in Arterial blood by Pulse oximetry Heart rate Body mass index (BMI) Body weight Systolic And Diastolic Provider Name and Address Organization Details Last Updated DateTime 157.48 cm 98 % 98 % 77 /min 25.6 kg/m2 92234.9 3 g 159/71 mm[Hg] CATHERINE ERWIN Dax [address] [place] [address], [address], [facility] 14:44:00 Date Recorded Body height Body mass index (BMI) Body weight Provider Name and Address Organization Details Last Updated DateTime 11/17/2024 157.48 cm 26.2 kg/m2 16071.71 g Magy Hassan [place] [facility] 11/17/2024 14:07:59 Social History None recorded. Functional [...] Hearing Loss N Hyperlipidemia N Cancer N Eczema Y Stroke N Dementia N Nasal polyps N [...] Note [id number] QUETA MATTHEWS PA-C [facility] [address] [address] 09/21/2023 10:18:14 09/21/2023 10:37:56 Vasomotor rhinitis 5241606 J30.0 Nasal mucosa dry 8072175 2 J34.89 [id number] QUETA MATTHEWS PA-C [facility] [address] [address] 2024 10:14:30 2024 10:41:37 Acute sinusitis 41323321 J01.90 Nasal congestion 5338285 0 R09.81 Nasal mucosa dry 7534502 2 J34.89 Vasomotor rhinitis 94787 03 J30.0 Posterior rhinorrhea 758 58960 R09.82 [id number] ANGELIKA RODRÍGUEZ PA-C [facility] [address] [address] 04/26/2024 16:01:00 04/26/2024 16:33:24 Posterior rhinorrhea 68268061 R09.82 Anterior rhinorrhea 2772 16998 J34.89 Allergic rhinitis 860645 04 J30.9 Headache 34634498 R51.9 [id number] CATHERINE ERWIN [facility] 100 [facility],[address] [address] 05/22/2024 12:32:38 05/22/2024 13:55:12 Allergic rhinitis 71401812 J30.9 [id number] CATHERINE ERWIN [facility] 100 [facility],[address] [address] 10/06/2024 14:26:22 10/06/2024 15:49:53 Perennial allergic rhinitis 735656346 J30.89 098843 [id number] ANGELIKA RODRÍGUEZ PA-C [facility] [address] [place] [address] 11/17/2024 13:50:54 11/17/2024 14:31:13 Allergic rhinitis 87258152 J30.9 Health Concerns Section Related Observation LastModified by Organization Detai ls LastModified Time None Recorded Concern Status LastModified by Organization Details LastModified Time None Recorded Advance Directives Directive None Recorded Payers Insurance Date Sequence Insurance Name Policy Number Policy Kuo Covered Member ID Kuo Member ID Guarantor Name 11/17/2024 2 [place] [facility] Jessa Bowerella [id number] Jessa Bowerella 11/17/2024 1 [facility] (MEDICARE REPLACEMENT/ ADVANTAGE - HMO) [facility] Jessa Bowerella [id number] Jessa Bowerella 10/06/2024 2 [place] [facility] Jessa Bowerella [id number] Jessa Minor Notes Date Note Type Note [...] stopped her fluticasone. TY SMITH MD 100 [facility],[address], [address], [facility] - [facility] 2024 16:46:20 04/26/2024 text/html ROS as noted in the [facility] 69yo female with PND and gustatory rhinorrhea [...] has lupus and is closely followed by [place] [facility]. TY SMITH MD 100 [facility],[address], [address], [facility] 04/26/2024 17:40:05 11/17/2024 text/html ROS as noted in the [facility] 69-year-old female with posterior rhinorrhea presents for allergy test results. Skin allergy testing demonstrated moderate sensitivity to two molds and Gerardo grass. Patient reports the postnasal drip is intermittent, and denies all other allergy symptoms. Her migraines are well-controlled. She is closely followed by [place] rheumatology for lupus. TY SMITH MD 100 [facility],[address], [address], [facility] 11/20/2024 07:50:03 OBGyn Episode No OBEpisode recorded.
--- OUTSIDE RECORDS SUMMARY | 2025-01-31 18:01 | XMS_ITS | Encounter Summary ---
Author Organization [employer] Address [address] [facility] 7[address] [place] [address] Care Team Providers Care Spanish Interpreter/Translator Name Role Phone Unavailable Primary Care Provider Unavailabl e Encounter Details Date Type Department Care Team (Latest Contact Info) Description 08/26/2020 Abstract [facility] CONVERSIONS Dental, Provider, [...] Description 07/25/2025 10:15 AM EDT Office Visit [facility] ADULT DENTAL [address] [place] [address] Cameron Salgado documented as of this encounter Visit Diagnoses Not on filedocumented in this encounter
--- OUTSIDE RECORDS SUMMARY | 2025-01-31 18:01 | XMS_ITS | Clinical Summary ---
Author Organization [employer] Address 75 [facility] 7[address] [place] [address] Care Team Providers Care Gas Appliance Servicer Helper Name Role Phone Unavailable Primary Care Provider Unavailabl e Allergies Active Allergy Reactions Criticality Noted Date Comments Prednisolone Hallucinations 01/01/2025 Medications dicyclomine (Bentyl) 20 MG tablet TAKE [...] 4 Active Sodium Fluoride 1.1 % cream [place] teeth for 2 minutes, morning and night. Spit, do not rinse. Do not eat or drink anything for 30 minutes following use. 112 g 3 5 Active albuterol 108 (90 Base) MCG/ACT inhaler INHALE 1 PUFF 4 TIMES A DAY NEEDED FOR SHORTNESS OF BREATH OR WHEEZING FOR 30 DAYS 5 Active buPROPion (Wellbutrin) 75 MG tablet 75 mg. Active escitalopram (Lexapro) 20 MG tablet 20 mg. Active Melatonin ER 10 MG tablet controlled-rele ase 5 Active Multiple Vitamins-Minera ls (Centrum Silver 50+Women) tablet as directed Orally Active terazosin (Hytrin) 1 MG capsule take 1 capsule by mouth everyday at bedtime Active Active Problems Problem Noted Date Diagnosed Date Anxiety 01/01/2025 Depression 01/01/2025 Gastric intestinal metaplasia 01/01/2025 Fibromyalgia 01/01/2025 Lupus (systemic lupus erythematosus) (CMS/HCC) 0 07/05/2024 Chronic obstructive pulmonary disease 05/22/2024 Atypical facial pain 04/26/2024 Other specified disorders of nose and nasal sinu ses 04/26/2024 Nasal mucosa dry 09/21/2023 Acute pharyngitis 02/03/2023 Overview (01/01/2025): Sore throat (acute) NOS; Note: Date Diagnosed: 02/03/2023 12:47 PM (J02.9) Sensorineural hearing loss (SNHL) of both ears 1 Overview (01/01/2025): Sensorineural hearing loss, bilateral; Note: Date Diagnosed: 03/12/2021 12:18 PM (H90.3) Acute sinusitis 08/15/2020 Overview (01/01/2025): Other acute sinusitis; Note: Date Diagnosed: 08/15/2020 1:41 PM (J01.80) Headache 04/08/2018 Overview (01/01/2025): Headache, unspecified; Note: Changed from R51 to R51.9 (10/03/2020 3:43 PM) , Date Diagnosed: 04/08/2018 12:10 PM (R51) Dysphasia 01/05/2018 Overview (01/01/2025): Dysphasia; Note: Date Diagnosed: 01/05/2018 9:31 AM (R47.02) Gastroesophageal reflux disease without esophagi tis 01/05/2018 Overview (01/01/2025): Gastro-esophageal reflux disease without esophagitis; Note: Date Diagnosed: 01/05/2018 9:31 AM (K21.9) Dizziness and giddiness 03/25/2017 Overview (01/01/2025): Dizziness and giddiness; Note: Date Diagnosed: 03/25/2017 11:43 AM (R42) Migraine 03/25/2017 Overview (01/01/2025): Other migraine, not intractable, without status migrainosus; Note: Date Diagnosed: 03/25/2017 12:19 PM (G43.809) Tinnitus of left ear 03/25/2017 Overview (01/01/2025): Tinnitus, left ear; Note: Date Diagnosed: 03/25/2017 11:55 AM (H93.12) Vasomotor rhinitis 03/25/2017 Overview (01/01/2025): Vasomotor rhinitis; Note: Date Diagnosed: 03/25/2017 11:50 AM (J30.0) Encounter for follow-up exam ination after completed treatment for conditions other than malignant neoplasm 03/04/2017 Overview (01/01/2025): Encounter for follow-up examination after completed treatment for conditions other than malignant neoplasm; Note: Date Diagnosed: 03/04/2017 4:29 PM (Z09) Bilateral temporomandibular joint pain 7 Overview (01/01/2025): Arthralgia of bilateral temporomandibular joint; Note: Date Diagnosed: 07/27/2018 1:25 PM (M26.623) Nasal congestion 04/22/2016 Overview (01/01/2025): Nasal congestion; Note: Date Diagnosed: 04/22/2016 1:54 PM (R09.81) Posterior rhinorrhea 04/22/2016 Overview (01/01/2025): Postnasal drip; Note: Date Diagnosed: 04/22/2016 1:54 PM (R09.82) Perennial allergic rhinitis 01/22/2016 Overview (01/01/2025): Other allergic rhinitis; Note: Changed from J30.9 to J30.89 (01/22/2016 4:25 PM) , Date Diagnosed: 01/22/2016 3:54 PM (J30.9) Encounters Date Type Department Care Team Description 01/29/2025 10:30 AM EST Office Visit [facility] ADULT DENTAL [address] [place] [address] Pancho Butcher DDS 01/29/2025 Telephone [facility] [address] [place] [address] Pancho Butcher DDS 01/28/2025 Travel 01/22/2025 10:15 AM EST Office Visit [facility] [address] [place] [address] Cameron Salgado Dental calculus (Primary Dx) 01/21/2025 Travel 01/16/2025 9:30 AM EST Office Visit [facility] [address] [place] [address] Pancho Butcher DDS 01/09/2025 8:00 AM EDT Office Visit [facility] [address] [place] [address] Pancho Butcher DDS 01/01/2025 8:00 AM EDT Office Visit [facility] [address] [place] [address] Pancho Butcher DDS 12/31/2024 Travel 12/18/2024 10:00 AM EDT Office Visit [facility] [address] [place] [address] Pancho Butcher DDS 12/04/2024 1:00 PM EDT Office Visit [facility] [address] [place] [address] Temo Castle DDS Dental caries (Primary Dx) from Last 3 Months Social History Tobacco Use Types Packs/Day Years Used Date Smoking Tobacco: Former Cigarettes Passive Smoke Exposure: Never Smokeless Tobacco: Never Tobacco Cessation:Counseling Given: Not Answered Alcohol Use Standard Drinks/Week Comments Defer 0 [...] Sign Reading Time Taken Comments Blood Pressure 154/72 01/22/2025 10:35 AM EST Pulse 65 01/22/2025 10:35 AM EST Temperature - - Respiratory Rate - - Oxygen Saturation - - Inhaled Oxygen Concentration - - Weight - - Height - - Body Mass Index - - Plan of Treatment Upcoming Encounters Date Type Department Care Team (Late st Contact Info) Description 07/25/2025 10:15 AM EDT Office Visit [facility]ULT [facility] [address] [place] [address] Cameron Salgado Health Maintenance Due Date Last Done Comments CT Colonography 1954 Colonoscopy 1954 Colorectal Cancer Screening 1954 Depression Screening 1954 FIT DNA/Cologuard 1954 FIT 1954 FOBT 1954 Lipid Panel 1954 SDOH Screening 1954 Sigmoidoscopy 1954 Alcohol/Substance Use Screening 1966 Hepatitis C Screening 1972 DTaP/Tdap/Td Vaccines (1 - Tdap) 1973 Mammogram 1994 RSV Patients and Patients Aged 60 years or older (1 - Risk 50-74 years 1-dose series) 2004 Zoster Vaccines (1 of 2) 2004 COVID-19 Vaccine ( season) 2024 04/06/2023, 01/14/2022, 02/03/2021, Additional history exists Influenza Vaccine (#1) 2024 , 01/14/2022, 12/20/2020, Additional history exists Dental Oral Exam 07/23/2025 01/22/2025, , 02/22/2023, Additional history exists Dental Prophylaxis 07/23/2025 01/22/2025, 0 08/25/2023, 02/22/2023, Additional history exists Dental X-Ray: Bitewings 01/23/2026 01/23/20 25, 10/03/2024, 02/22/2023, Additional history exists Tobacco Screening 01/29/2026 01/29/2025 Dental X-Ray: Full Mouth 01/24/2028 025, 08/26/2020, 12/15/2012, Additional history exists Pneumococcal Vaccine: 50+ Years [...] Procedure Name Priority Date/Time Associated Diagnosis Comments CASE PRESENTATION, DETAILED AND EXTENSIVE TREATMENT PLANNING Routine 01/29/2025 10:30 AM EST DENTURE IMPRESSION Routine 01/29/2025 10 :30 AM EST PERIODIC ORAL EVALUATION - ESTABLISHED PATIENT Routine 01/22/2025 10:15 AM EST ORAL HYGIENE INSTRUCTIONS Routine 2024 10:15 AM EST PROPHYLAXIS - ADULT Routine 01/22/2025 1 0:15 AM EST INTRAORAL - COMPLETE SERIES OF RADIOGRAPHIC IMAGES Routine 01/22/2025 10:15 AM EST CASE PRESENTATION, DETAILED AND EXTENSIVE TREATMENT PLANNING Routine 01/16/2025 9:30 AM EST 4 BB(V) RESIN-BASED COMPOSITE - 1 SURF, POSTERIOR Routine 01/16/2025 9:30 AM EST CASE PRESENTATION, DETAILED AND EXTENSIVE TREATMENT PLANNING Routine 01/09/2025 8:00 AM EDT 11 CORE BUILDUP, INCL ANY PINS WHEN REQ Routine 01/09/2025 8:00 AM EDT 11 ENDODONTIC THERAPY, ANTERIOR TOOTH Routine 01/01/2025 8:00 AM EDT NO CHARGE PROCEDURE Routine 12/18/2024 1 0:00 AM EDT CASE PRESENTATION, DETAILED AND EXTENSIVE TREATMENT PLANNING Routine 12/04/2024 1:00 PM EDT 11 LIMITED ORAL EVALUATION - PROBLEM FOCUSED Routine 12/04/2024 1:00 PM EDT from Last 3 Months Insurance DENTAL - [facility]
--- OUTSIDE RECORDS SUMMARY | 2025-01-31 18:01 | XMS_ITS | Encounter Summary ---
Author Organization [employer] Address 75 [facility] 7t [place] [address] Care Team Providers Care Plate And Weld Inspector Name Role Phone Unavailable Primary Care Provider Unavailabl e Encounter Details Date Type Department Care Team (Latest Contact Info) Description 03/30/2019 Abstract [facility] CONVERSIONS Dental, Provider, DDS Social History [...] Description 07/25/2025 10:15 AM EDT Office Visit [facility] ADULT DENTAL [address] [place] [address] Cameron Salgado documented as of this encounter Visit Diagnoses Not on filedocumented in this encounter
--- OUTSIDE RECORDS SUMMARY | 2025-01-31 18:01 | XMS_ITS | Patient Health Record ---
Author Organization [facility] Address [address] [place] [address] Care Team Providers Care Materials And Processes Manager Name Role Phone Osiris Soni MD Primary Care Provider Alban Gerard Jr Unavailable Allergies No Known Allergies Reason For Referral No Information Medications Medication SIG (Take, Route, Frequency, Duration) Notes Start Date End Date Status Diclofenac Sod&Camphor-Menth ol 1.5 & 4-10 % Therapy Pack as directed Externally Active buPROPion HCl 75 MG Tablet 1 tablet Oral ly Twice a day Active MiraLax (colon prep) 17 GM/SCOOP Powder mixed with Gatorade or Crystal Light Orally begin at 5:00 p.m. the day before the procedure; Duration: 1 day 11/29/2023 Active tiZANidine HCl 2 MG Tablet 1 tablet as n eeded Orally Three times a day Active Vitamin D 1000 UNIT Tablet 1 tablet Oral ly Once a day; Duration: 30 day(s) Active Hydroxychloroquine Sulfate 2 00 MG Tablet TAKE 1 AND 1/2 TABLET ORALLY DAILY Oral; Duration: 90 Active Ipratropium Lamar 0.03 % Solution USE 2 SPRAYS EACH NOSTRILS 1-3 TIMES DAILY 15 MINUTES BEFORE MEALS Nasal; Duration: 90 Active Loratadine 10 MG Tablet TAKE 1 TABLET BY MOUTH EVERY DAY Oral; Duration: 90 Active methylPREDNISolone 4 MG Tablet PLEASE SE E ATTACHED FOR DETAILED DIRECTIONS Oral; Duration: 28 Active Centrum Silver 50+Women - Tablet as directed Orally Active LORazepam 0.5 MG Tablet 1 tablet at bedt afua as needed Orally Once a day Active Melatonin 5 MG Tablet 1 tablet in the evening Orally Once a day; Duration: 30 day(s) Active Escitalopram Oxalate 10 MG Tablet 1 tablet Orally Once a day; Duration: 30 day(s) Active Amitriptyline HCl 10 MG Tablet 1 tablet at bedtime Orally Once a day; Duration: 30 day(s) Active Zolpidem Tartrate 10 MG Tablet 1 tablet at bedtime as needed Orally Once a day Active hydrOXYzine HCl 10 MG Tablet 1 tablet as needed Orally BID Active Tamsulosin HCl 0.4 MG Capsule 1 capsule Orally Once a day; Duration: 30 day(s) Active Gabapentin 300 MG Capsule 1 capsule Oral ly three x a day Active Fluticasone Propionate (Inha l) 50 MCG/BLIST Aerosol Powder Breath Activated 1 puff Inhalation Twice a day Active Fluticasone Furoate 27.5 MCG/SPRAY Suspension 1 puff in each nostril Nasally Once a day Active Immunizations Vaccine Route Administration Date Status Comme nts Influenza Unknown 12/01/2017 Administered Influenza Unknown 11/14/2019 Administered Influenza Unknown 12/13/2020 Administered Influenza Unknown 12/30/2021 Administered Influenza Unknown 01/05/2023 Administered Social History Tobacco Use: Social History Observation Description Date Details (start date - stop date) Former Smoker NA - NA Social History Tobacco Use: Social Info Question Answer Notes Tobacco Use/Smoking Patient is a former smoker How long has it been since you last smoked? > 10 years Additional Details Category Social Info Options Details Miscellaneous: Marital status: Occupation: unemployed Problems Problem Type SNOMED Code ICD Code Onset Dates Problem Status W/U Status Risk Notes Problem Colon cancer screening (230555927) Colon cancer screening (Z12.11) Active confirmed Problem Gastro-esophageal reflux disease without esophagitis (250665241) Gastro-esophage al reflux disease without esophagitis (K21.9) Active confirmed Problem Generalized abdominal pain (946062394) Generalized abdominal pain (R10.84) Active confirmed Problem Dysphagia (98700296) Other dysphagia (R13.19) Active confirmed Problem Dysphagia (81604915) Dysphagia (R13.10) Active confirmed Problem Constipation (22155412) Constipation, unspecified constipation type (K59.00) Active confirmed Problem Gastritis (0593685) Gastritis (K29.70) Active confirmed Problem Diarrhea (02886106) Diarrhea, unspecified type (R19.7) Active confirmed Problem Gastroesophageal reflux disease (081484793) Esophageal reflux disease (K21.9) Active confirmed Problem Gastric intestinal metaplasia (87096309) Gastric intestinal metaplasia (K31.A0) Active confirmed Plan Of Treatment Pending Test Test Name [...] Insured Coverage Start Date Coverage End Date [facility] [address] [address] [place] [phone] [id number] PAULETTE SERRANO Self - patient is the insured MEDICAID OF [facility] [address] [place] [address] [id number] PAULETTE SERRANO Self - patient is the insured Medical (General) History Medical History History ICD Code Hypertension bipolar disorder GERD, upper endoscopy 3, gastric intestinal metaplasia at one site, 2-3 year followup diverticulitis arthritis neuropathy Colonoscopy 01/31 benign cecal polyp, te n-year followup lupus Surgical History Surgery Date(Month/Year) hysterectomy 1985
--- OUTSIDE RECORDS SUMMARY | 2025-01-31 18:01 | XMS_ITS | Clinical Summary ---
Author Organization [facility] Address [address] [place], [place] [id number] Phone Care Team Providers Care Water Tester Name Role Phone Osiris Soni MD Primary [...] ACO ACO ACO [facility]CO [facility]CO [facility]CO [facility] Care Teams Water Tester Relationship Specialty Start Date End Date Osiris Soni MD [address] [address] PCP - General Internal Medicine 06/03/17 Additional Source Comments The information contained in this document represents components of the legal health record. It is not the complete legal health record.[facility]
--- OUTSIDE RECORDS SUMMARY | 2025-01-31 18:02 | XMS_ITS ---
Author Name Jenae Larson NP Address [address] [place] [address] Phone [phone] Organization [facility] Care Team Providers Care Instructional Technology Facilitator Name Role Phone Jenae Larson Unavailable [phone] Osiris Soni Unavailable Alban Lopez Unavailable [phone] Reason for Referral Not Available Allergies, adverse [...] 7 days. 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 Dz management discussed2. Continue to follow up with PCP6/27/25: pt reports s/sx of acute/recurrent UTI with [...] if symptoms have not improved. #2 tablet [id number] New Acetaminophen 500 mg Tab 2 tablets orally TID PRN fever/pain #30 tablet VKf9pHf New Nitrofurantoin Macrocrystal 100 mg Cap Take 1 tablet PO twice daily for 5 days. #10 tablet EQk9yIx New Ondansetron 8 mg Tab Disintegrating 1 tablet orally every 8 hours as needed nausea/vomiting #30 tablet RFx0 Health maintenance examination Inactive 2023-02-23 N/A colonoscopy next due 01/2024, polyps found, but not cancerous. Hypertension Active 2022-10-15 N/A StableRX: de stephenie. Not currently taking any bp medications per [...] llow up calls with ptCONTINGENCY PLANPlease call [facility] if you have a change in condition, [...] suicidal/homicidal ideations at this time.1. Member given phone number and tablet directions2. Follow up [...] or fried foods. F/I with GI. Contact [facility] 05/10 for any new, worsening or continued symptoms. Encounters Encounters Type Facility Date of Service Diagnosis/Co mplaint No Data Available [facility] Other specified disorders of nose and nasal sinuses No Data Available [facility] Data [place] [facility] [facility] [facility] Data Available [facility] Data Available [facility] New patient,40-59min; chronic exacerbation, 2 stable chronic or 1 acute illness add add modifier 95 for video (do not use for phone, instead use 78824-90) [facility] Rheumatoid arthritis, unspecifiedUlcerative colitis, unspecified, without complicationsAtopic dermatitis, unspecifiedRash and other nonspecific skin eruptionEssential (primary) hypertensionBipolar II disorderGastritis, unspecified, without bleedingDorsalgia, unspecifiedRetention of urine, unspecifiedRepeated fallsGastro-esophageal reflux disease without esophagitisOld myocardial infarction New patient,40-59min; chronic exacerbation, 2 stable chronic or 1 acute illness add add modifier 95 for video (do not use for phone, instead use 45896-81) [facility] New patient,40-59min; chronic exacerbation, 2 stable chronic or 1 acute illness add add modifier 95 for video (do not use for phone, instead use 09249-25) [facility] New patient,40-59min; chronic exacerbation, 2 stable chronic or 1 acute illness add add modifier 95 for video (do not use for phone, instead use 73851-23) [facility] New patient,40-59min; chronic exacerbation, 2 stable chronic or 1 acute illness add add modifier 95 for video (do not use for phone, instead use 02940-57) [facility] New patient,40-59min; chronic exacerbation, 2 stable chronic or 1 acute illness add add modifier 95 for video (do not use for phone, instead use 44279-15) [facility] [place] New patient,40-59min; chronic exacerbation, 2 stable chronic or 1 acute illness add add modifier 95 for video (do not use for phone, instead use 85200-36) [facility] [place] New patient,40-59min; chronic exacerbation, 2 stable chronic or 1 acute illness add add modifier 95 for video (do not use for phone, instead use 57012-11) [facility] Data [place] [facility] Mononeuropathy, unspecified No Data Available [facility] Essential (primary) hypertensionBipolar II disorderOld myocardial infarctionRheumatoid arthritis, unspecifiedGastritis, unspecified, without bleedingUlcerative colitis, unspecified, without complicationsDorsalgia, unspecifiedAtopic dermatitis, unspecifiedRash and other nonspecific skin eruptionRetention of urine, unspecifiedRepeated fallsGastro-esophageal reflux disease without esophagitisNasal congestionMononeuropathy, unspecified No Data Available [facility] Data [place] [facility] Data [place] [facility] Data [place] [facility] Data [place] [facility] Data [place] [facility]2023 Ulcerative colitis, unspecif ied, without complicationsGastritis, unspecified, without bleedingGastro-esophageal reflux disease without esophagitisRetention of urine, unspecifiedUnspecified urinary incontinenceOveractive bladder No Data Available [facility]2023 Acute candidiasis of vulva a nd vaginaEncntr for general adult medical exam w/o abnormal findingsEssential (primary) hypertension No Data Available [facility] No Data [place] [facility] [place] No Data [place] [facility] No Data [place] [facility] [place] No Data Available [facility] [place]2023 Rheumatoid arthritis, unspec ified No Data Available [facility]2023 Rheumatoid arthritis, unspec ified No Data Available [facility]23 No Data Available [facility] [place] No Data Available [facility] No Data [place] [facility]23 Rheumatoid arthritis, unspec ified No Data Available [facility]23 No Data Available [facility] Estab. patient 30-39min; chronic exacerbation, 2 stable chronic or 1 acute illness add add modifier 95 for video, (do not use for phone, instead use 24405-53) [facility] [place]2023 Essential (primary) hypertensionBipolar II disorderOld myocardial [...] (do not use for phone, instead use 30620-15) [facility] [place]/20[place] Estab. patient 30-39min; chronic exacerbation, 2 stable chronic or 1 acute illness add add modifier 95 for video, (do not use for phone, instead use 56315-41) [facility] Estab. patient 30-39min; chronic exacerbation, 2 stable chronic or 1 acute illness add add modifier 95 for video, (do not use for phone, instead use 13336-51) [facility] Estab. patient 30-39min; chronic exacerbation, 2 stable chronic or 1 acute illness add add modifier 95 for video, (do not use for phone, instead use 76347-49) [facility] Estab. patient 30-39min; chronic exacerbation, 2 stable chronic or 1 acute illness add add modifier 95 for video, (do not use for phone, instead use 18726-86) [facility] [place] Estab. patient 30-39min; chronic exacerbation, 2 stable chronic or 1 acute illness add add modifier 95 for video, (do not use for phone, instead use 61992-97) [facility] Estab. patient 30-39min; chronic exacerbation, 2 stable chronic or 1 acute illness add add modifier 95 for video, (do not use for phone, instead use 84665-66) [facility] Estab. patient 30-39min; chronic exacerbation, 2 stable chronic or 1 acute illness add add modifier 95 for video, (do not use for phone, instead use 60808-13) [facility] Estab. patient 30-39min; chronic exacerbation, 2 stable chronic or 1 acute illness add add modifier 95 for video, (do not use for phone, instead use 28369-45) [facility] Estab. patient 10-29min; 1 minor problem; add add modifier 95 for video, modifier 93 for phone [facility]20[place] Chronic sinusitis, unspecifi ed Estab. patient 10-29min; 1 minor problem; add add modifier 95 for video, modifier 93 for phone [facility] [place] Estab. patient 10-29min; 1 minor problem; add add modifier 95 for video, modifier 93 for phone [facility] [place] Estab. patient 10-29min; 1 minor problem; add add modifier 95 for video, modifier 93 for phone [facility] Estab. patient 10-29min; 1 minor problem; add add modifier 95 for video, modifier 93 for phone [facility]24 Essential (primary) hypertensionBipolar II [...] for video, modifier 93 for phone [facility] [place] Estab. patient 10-29min; 1 minor problem; add add modifier 95 for video, modifier 93 for phone [facility] [place]14[place]20[place] Estab. patient 10-29min; 1 minor problem; add add modifier 95 for video, modifier 93 for phone [facility] [place] 04/14/2024 Estab. patient 10-29min; 1 minor problem; add add modifier 95 for video, modifier 93 for phone [facility] [place] 04/14/2024 Estab. patient 10-29min; 1 minor problem; add add modifier 95 for video, modifier 93 for phone [facility] [place] 04/14/2024 Estab. patient 10-29min; 1 minor problem; add add modifier 95 for video, modifier 93 for phone [facility] [place] 05/09/2024 Acute candidiasis of vulva a nd vagina Estab. patient 10-29min; 1 minor problem; add add modifier 95 for video, modifier 93 for phone [facility] [place] 07/19/2024 Acute upper respiratory infe ction, unspecified Estab. patient 10-29min; 1 minor problem; add add modifier 95 for video, modifier 93 for phone [facility] [place]19[place] Estab. patient 10-29min; 1 minor problem; add add modifier 95 for video, modifier 93 for phone [facility] [place] 07/19/2024 Estab. patient 10-29min; 1 minor problem; add add modifier 95 for video, modifier 93 for phone [facility] [place] 09[place]05/2024 Unspecified abdominal pain Estab. patient 10-29min; 1 minor problem; add add modifier 95 for video, modifier 93 for phone [facility] [place]/05/[place] Estab. patient 10-29min; 1 minor problem; add add modifier 95 for video, modifier 93 for phone [facility] [place]/05/20[place] Estab. patient 10-29min; 1 minor problem; add add modifier 95 for video, modifier 93 for phone [facility] [place] 09/08/2024 Unspecified abdominal painOt her problems related to medical facilities and other health care Estab. patient 10-29min; 1 minor problem; add add modifier 95 for video, modifier 93 for phone [facility] [place] 09/08/2024 Retention of urine, unspecifiedUnspecified urinary incontinenceOveractive bladderUrinary tract infection, site not specified Estab. patient 10-29min; 1 minor problem; add add modifier 95 for video, modifier 93 for phone [facility] [place] 09/08/2024 Estab. patient 10-29min; 1 minor problem; add add modifier 95 for video, modifier 93 for phone [facility] [place] 09/08/2024 Estab. patient 10-29min; 1 minor problem; add add modifier 95 for video, modifier 93 for phone [facility] [place] 11/15/2024 Candidiasis, unspecified Estab. patient 10-29min; 1 minor problem; add add modifier 95 for video, modifier 93 for phone [facility] [place] 11/22/2024 Candidiasis, unspecified Estab. patient 10-29min; 1 minor problem; add add modifier 95 for video, modifier 93 for phone [facility] [place] 11/27/2024 Essential (primary) hypertensionBipolar II disorderOld [...] date Servicing provider Phone# No Data Available [id number] 2022-10-20 No Data Available No Data Available [...] (do not use for phone, instead use 95116-88) [id number] 2022-10-15 No Data Available No Data Availa [...] No Data Avail able No Data Available [id number] 2023-01-05 No Data Available No Data Available No Data Available [id number] 2023-01-16 No Data Available No Data Available [...] No Data A vailable No Data Available [id number] 2023-06-11 No Data Available No Data Available No Data Available 2023-07-09 No Data Available No Data Available Medication List Documented (1159F) 1159F 2023-07-09 No Data Available No Data Anastacia ilable SBP >= 140 3077F 2023-07-09 No Data Available No Data Available DBP <80 (3078F) 3078F 2023-07-09 No Data Available No Data Available No Data Available [id number] 2023-07-13 No Data Available No Data Available [...] (do not use for phone, instead use 04786-23) [id number] 2023-08-30 No Data Available No Data Availa [...] 95 for video, modifier 93 for phone [id number] 2024-04-12 No Data Available No Data Availa ble No Data Available [id number] 2024-04-12 No Data Available No Data Available SBP >= 140 3077F 2024-04-12 No Data Available No Data Available DBP <80 (3078F) 3078F 2024-04-12 No Data Available No Data Available Estab. 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 #2 tablet OJp0Lqs Miconazole Nitrate 2 % Crm Vaginal Apply to affected area daily x 7 days. #1 applicator [id number] (patient, parent, or guardian); 11-20 minutes of [...] Documented (1125F)Continue to see PCP. [facility] any acute or disease [...] Follow up with Psychiatry for provider assignment10/15/22: [facility] done [facility] 09/2022. No interventions.1. 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 2024-04-11 17:04:12 Televideo 10-29min; 1 minor problem; add add modifier 95 for video, modifier 93 for phoneContinue to see PCP. [facility] for any acute or disease [...] phoneContinue to see PCP. 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 [facility] for any acute or disease education needs that may arise 05/10.Diflucan 150 mg Tab Take 1 tablet PO. May take 1 tablet 72 hours later if symptoms have not improved. #2 tablet BFm6Ecsbyz underwearNotify for persistant symptoms. 2024-07-19 09:11:42 Televideo 10-29min; 1 minor problem; add add modifier 95 for video, modifier 93 for phoneContinue to see PCP. Follow-up with [facility] as needed for any acute or disease education needs that may arise 05/10.Amoxicillin-Pot Clavulanate 875/125 mg Tab Take 1 tablet PO twice daily for 7 days #14 tablet ZLe5Xjbosm to tolerate prednisoneEnc use of alb inhaler [...] or fried foods. F/I with GI. Contact [facility] 05/10 for any new, worsening or continued symptoms. 2024-09-08 13:43:08 Estab. patient 10-29 min; 1 minor problem; add add modifier 95 for video, modifier 93 for phoneContinue to see PCP. Follow-up with [facility] as needed for any acute or disease education needs that may arise 05/10.09/05/24: Rx: Dicyclomine 20 mg Tab-TAKE 1 TABLET BY MOUTH BEFORE MEALS AND AT BEDTIME FOR STOMACH PAIN/SPASMS. Recommend bland diet-BRAT diet-Bananas, rice, applesauce, toast. Avoid coffee, alcohol, dairy products, fruit, vegetables, red meat, spicy or fried foods. F/I with GI. Contact [facility] 05/10 for any new, worsening or continued symptoms.Monthly follow up calls with ptCONTINGENCY PLANWhy was the member in the hospital or ER most recently? Why are they most likely to go back?Please call [facility] if you have a change in condition, Blood pressure > 170/90Acute illness, change in condition or medication and with any questions about your healthFall, any unusual symptoms or have any medical questions! 2024-09-08 19:25:40 Televideo 10-29min; 1 minor problem; add add modifier 95 for video, modifier 93 for phoneSBP >= 140DBP <80 (3078F)Continue to see PCP. 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 #2 tablet EEb9eCy New Acetaminophen 500 mg Tab 2 tablets orally TID PRN fever/pain #30 tablet XVf9bJs New Nitrofurantoin Macrocrystal 100 mg Cap Take 1 tablet PO twice daily for 5 days. #10 tablet UNc2dLs New Ondansetron 8 mg Tab Disintegrating 1 tablet orally every 8 hours as needed nausea/vomiting #30 tablet RFx0 2024-11-15 14:57:00 New Nystatin [id number] UNIT/GM Crm 1 application topically to affected area 3 times per day #60 g AEj3Puakow Diflucan 150 mg Tab Take 1 tablet PO. May take 1 tablet 72 hours later if symptoms have not improved. #3 tablet FPu6Asnqsi up plan for acute symptoms: As neededTelevideo 10-29min; 1 minor problem; add add modifier 95 for video, modifier 93 for phoneContinue to see PCP. Follow-up with [facility] as needed for any acute or disease education needs that may arise 05/10. 2024-11-22 06:05:49 Estab. patient 10-29 min; 1 minor problem; add add modifier 95 for video, modifier 93 for phoneContinue to see PCP. Follow-up with [facility] as needed for any acute or [...] for video, modifier 93 for phoneBMI obtained (3008F)Continue to see PCP. 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 #2 tablet JKp9bRx New Acetaminophen 500 mg Tab 2 tablets orally TID PRN fever/pain #30 tablet MHr0lLt New Nitrofurantoin Macrocrystal 100 mg Cap Take 1 tablet PO twice daily for 5 days. #10 tablet VKf8kBj New Ondansetron 8 mg Tab Disintegrating 1 tablet orally every 8 hours as needed nausea/vomiting #30 tablet APr3DwceugQLYUKNZEPZHZBTHMVP 200 MG TABf/u with pcp annually Goals [...] Health Concerns Date Concern 2024-11-27 Patient/Guardian parul genesis to visit via telehealth. Today, patient has [...] discussedDo you have a Durable Power of Clay Transporter for Healthcare, or Healthcare Proxy Or Guardianship? Yes, preferred proxy but not named POAIf so, Who? Coral Minor (Daughter) & Bernard Roach (partner)Do you have a written Advance Directive? Has no formal [id number] : AD or surrogate was documented in [...]
--- OUTSIDE RECORDS SUMMARY | 2025-01-31 18:02 | XMS_ITS | Encounter Summary ---
Author Organization [employer] Address [address] [place] [address] Care Team Providers Care Dress Cap Maker Name Role Phone Unavailable Primary Care Provider Unavailabl e Encounter Details Date Type Department Care Team (Latest Contact Info) Description 01/28/2025 Travel Social History Tobacco Use Types Packs/Day Years [...] Description 07/25/2025 10:15 AM EDT Office Visit [facility] [address] [place] [address] Cameron Salgado documented as of this encounter Visit Diagnoses Not on filedocumented in this encounter
== END 2025-01-31 09:45 | disposition home or self-care (01) ==
LOC: HO.US 09:44
PROVIDERS: PCP Internal Medicine; Visit Provider Internal Medicine
DX: R74.01 Elevation of levels of liver transaminase levels (principal)
CPT/HCPCS: 76700

== ENCOUNTER → 2025-01-31 09:47 | Outpatient (BNV) | payer OTHER, SELFPAY | PROVIDERS: PCP Internal Medicine; Visit Provider Radiology Diagnostic Radiology | DX: R74.01 Elevation of levels of liver transaminase levels (principal) | CPT/HCPCS: 76700 ==

== ENCOUNTER 2025-02-07 13:22 | Outpatient (REF) | payer OTHER, SELFPAY ==
[2025-02-07 18:00] LABS: MANUAL DIFF FLAG NO
[2025-02-07 18:04] LABS: Hematocrit 44.4 % (37.0-47.0); Hemoglobin 15.1 g/dl (12.0-16.0); Imm Gran Abs Auto 0.01 X10*3/uL (0.00-0.03); Imm Gran Pct Auto 0.2 % (0.0-0.4); Lymphocytes Absolute Auto 1.3 X10*3/uL (1.2-4.9); Mean Corpuscular HGB Conc 34.0 g/dl (31.0-35.0); Mean Corpuscular Hemoglobin 30.4 pg (27.0-33.0); Mean Corpuscular Volume 89.3 fL (80.0-98.0); NRBC Abs Auto 0.000 X10*3/uL (0.0-0.012); NRBC Pct Auto 0.0 /100WBC (0.0-0.2); Platelet Count 181 X10*3/uL (160-400); Red Blood Count 4.97 X10*6/uL (4.20-5.50); White Blood Count 6.4 X10*3/uL (4.8-10.8)
[2025-02-07 18:24] LABS: Appearance Urine Clear; Glucose Urine UA Negative (Negative); PH 6.5 (5.0-9.0); Specific Gravity - Urine <= 1.005 (1.005-1.025); UMIC TRIGGER UACC YES
[2025-02-07 18:38] LABS: Alanine Aminotransferase 36 U/L (0-31); Aspartate Amino Transferase 36 U/L (5-31); Estimated Glomerular Filt Rate > 60
[2025-02-07 18:43] LABS: UACC Culture Trigger YES
[2025-02-07 19:03] LABS: Erythrocyte Sedimentation Rate 4 MM/HR (0-20)
[2025-02-12 16:18] LABS: DNAds, Crithidia Antibody Negative (Negative)
== END 2025-02-07 13:23 | disposition home or self-care (01) ==
LOC: HO.HKASLDS 13:22
PROVIDERS: PCP Internal Medicine; Visit Provider Internal Medicine Rheumatology
DX: M32.19 Other organ or system involvement in systemic lupus erythematosus (principal); M17.11 Unilateral primary osteoarthritis, right knee; M19.041 Primary osteoarthritis, right hand; M19.042 Primary osteoarthritis, left hand; R74.01 Elevation of levels of liver transaminase levels; R21 Rash and other nonspecific skin eruption; R13.10 Dysphagia, unspecified; Z01.84 Encounter for antibody response examination; Z79.899 Other long term (current) drug therapy
CPT/HCPCS: 36415; 81001; 82565; 84450; 84460; 85025; 85652; 86140; 86160; 86225; 86255; 87086; 99212

== ENCOUNTER 2025-02-07 13:22 | Outpatient (AMB) | payer OTHER, SELFPAY ==
--- OUTSIDE RECORDS SUMMARY | 2025-01-29 10:30 | XMS_ITS | Encounter Summary ---
Author Organization [employer] Address [address] [facility] 7[address] [place] [address] Care Team Providers Care Decision Science Analyst Name Role Phone Unavailable Primary Care Provider Unavailabl e Reason for Visit * Reason Comments Dentures impressions Encounter Details Date Type Department Care Team (Late st Contact Info) Description 01/29/2025 10:30 AM EST Office Visit [facility] ADULT D[facility] [address] [place] [address] Pancho Butcher DDS [address] [place] [address] Social History Tobacco Use Types Packs/Day Years [...] AND EXTENSIVE TREATMENT PLANNING (Completed) Service provider: Pancho Butcher DDS Billing provider: Randi Graham DDS Patient ID: Jessa Minor is a 69 y.o. adult. Time Out: Date: 01/29/2025 Location: [facility] Tooth: Maxilla and Mandible Procedure: Dentures and Impressions Verified the above with patient, bar assistant, and provider. Confirmed via patient's chart, intraorally and by radiographs. Hospitality Intern: not applicable Upper and lower arch alginate [...] Description 07/25/2025 10:15 AM EDT Office Visit [facility] [address] [facility] [place] [address] Cameron Salgado Scheduled Orders Name Type Priority Associated Diagnoses Orde r Schedule 12,13,14 12,13,14 MAXILLARY PARTIAL DENTURE - RESIN BASE (INCLUDING, RETENTIVE/CLASPING MATERIALS, RESTS, AND TEETH) Dental Routine [address] ar[address] 02/04/2025 18,19,30,31 18,19,30,31 MANDIBULAR PARTIAL DENTURE - RESIN BASE (INCLUDING, RETENTIVE/CLASPING MATERIALS, RESTS, AND TEETH) Dental Routine [address] arting 02/04/2025 documented as of this encounter Procedures Procedure Name Priority Date/Time Associated Diagnosis Comments DENTURE IMPRESSION Routine 01/29/2025 10 :30 AM EST CASE PRESENTATION, DETAILED AND EXTENSIVE TREATMENT PLANNING Routine 01/29/2025 10:30 AM EST documented in this encounter Visit Diagnoses Not on filedocumented in this encounter
[2025-02-07 13:47] VITALS: BP 126/78; PULSE 90; O2SAT 99; BMI 24.2
--- NOTE | 2025-02-07 13:47 | A.OFFVIS_ITS ---
Vital Signs 02/07/25 13:47 Height 5 ft 4 in Weight 141 lb 1.533 oz BMI 24.2 BP 126/78 Blood Pressure Location Lt brachial Position Standing Pulse 90 Pulse Source Pulse Oximeter Pulse Oximetry (%) 99 Oxygen Delivery Method Room Air Intake Visit Reasons: 3months Intake Note: Patient presents for SLE. Patient states tat she is having left shoulder pain. Grounds Manager Required: No Accompanied by: Daughter Allergies prednisone Adverse Reaction (Intermediate, Verified 02/07/25 13:51) Anxiety HPI HPI 3months: Details: She is accompanied with her daughter. She continues to have joint pain and joint swelling. Her hands are swollen. + fatigue She has erythematous spots on her arms, self-limited. Denies fevers, dyspnea, pleurisy, oral ulcers, Raynaud's phenomenon, urinary symptoms. FOR[facility]LY [facility] Medical History Elevation of levels of liver transaminase levels Eosinophilia Asthma Allergic rhinitis Dyspnea on exertion Restrictive lung disease Venous insufficiency Right carotid bruit Diverticulitis Bipolar 1 disorder GERD (gastroesophageal reflux disease) History of cervical cancer Irritable bowel syndrome with constipation Weak urinary stream Surgical menopause Osteopenia Essential hypertension Dyslipidemia Anxiety Surgical History History of cardiac cath Hx of esophagogastroduodenoscopy Hx of colonoscopy History of partial hysterectomy Family History Father Throat cancer Mother No problems noted. Brother No problems noted. Sister No problems noted. Sister No problems noted. Sister No problems noted. Sister Hyperlipidemia HTN (hypertension) Depression Myocardial infarction Daughter No problems noted. Daughter No problems noted. Daughter No problems noted. Daughter No problems noted. Paternal Aunt Rheumatoid arthritis Other Mental health disorder Substance use disorder Social History Housing: Apartment Alcohol intake: current Alcohol intake frequency: does not drink Alcohol type: wine Patient Tobacco Use Status: Former Tobacco user e-Cigarette/Vaping Use: Never Used Advance Directives Date on File: 01/15/23 service: No Current occupational status: unemployed Cognitive needs: No Hearing needs: No Vision needs: No Physical Exam Vital Signs: Last Vital Signs Pulse 90 02/07/25 13:47 BP 126/78 02/07/25 13:47 Pulse Ox 99 02/07/25 13:47 Oxygen Delivery Method Room Air 02/07/25 13:47 BMI result Body Mass Index 24.2 Const Other: General: Comfortable CVS: RRR Respiratory: clear to auscultation bilaterally. Good respiratory effort Skin: She has a few erythematous spots on her arms and neck. Hyperpigmented circular lesion left anterior lower banks. No skin tightening. MSK: Tender left 2nd to 3rd MCP and bilateral PIPs. [place] nodes present on 5th DIPJ. Tender left shoulder with limited full abduction. Pain with internal and external rotation of left shoulder. Right shoulder range of motion is normal. Normal range of motion of lower extremity. No MTP tenderness. Results Reviewed Results Reviewed: FL/FL barium swallow IMPRESSION: Transient holdup of barium tablet in the upper esophagus at the level of aortic arch but otherwise unremarkable barium swallow exam. Electronically signed by: Tyrel Bolivar MD 11/22/2024 12:26 PM EDT RP Assessment & Plan Assessment & Plan (1) SLE (systemic lupus erythematosus): Comment: She has developed uncontrolled cutaneous disease presenting with erythematous spots throughout her extremities with spontaneous onset and resolution leaving hyperpigmented area. She continues to have polyarthralgias and fatigue. Her labs reveal persistent SLE disease activity with high double-stranded DNA 52. She continues to have intermittent joint swelling involving her MCPs and toe pain. She has background of osteoarthritis. On exam she has multiple small joint tenderness concerning for activity from inflammatory arthritis. To better manage SLE cutaneous disease, inflammatory arthritis, and fatigue I recommending add on therapy with Benlysta. We discussed side effects, benefits and drug monitoring. She prefers IV infusion over subcutaneous injection due to fear of needles. Rheumatology history: dx 08/2023 (inflammatory arthritis, ? Skin rashes, telangiectasia + SCOTT, dsDNA, RF). HCQ 08/2023- Code(s): M32.9 - Systemic lupus erythematosus, unspecified Category: Medical Qualifiers: Systemic lupus erythematosus organ involvement: other Systemic lupus erythematosus type: unspecified Qualified Code(s): M32.19 - Other organ or system involvement in systemic lupus erythematosus Plan: Labs for disease and drug monitoring on high-risk medication ordered Continue hydroxychloroquine 300 mg daily. 10/14/2023. Benlysta IV infusion SUSANNE follow-up Dermatology Dr. Gonzalez for follow up of cutaneous disease and consider skin biopsy as differential diagnosis also includes cutaneous manifestation of limited sclerosis (anticentromere antibody and Scl 70 negative). There may be topical options for patient Return to clinic in 3 months (2) Rash: Code(s): R21 - Rash and other nonspecific skin eruption Category: Medical Plan: See above (3) Dysphagia: Comment: Barium swallow was essentially unremarkable to revealing a cause of patient's symptoms. Code(s): R13.10 - Dysphagia, unspecified Category: Medical Plan: If she continues to have dysphagia, she will need GI consultation for consideration of EGD (4) Knee osteoarthritis: Comment: Constant pain Code(s): M17.9 - Osteoarthritis of knee, unspecified Category: Medical Qualifiers: Laterality: right Osteoarthritis type: primary Qualified Code(s): M17.11 - Unilateral primary osteoarthritis, right knee Plan: X-ray right knee ordered to determine if osteoarthritis is progressing 07/2024. Reminded patient to have x-rays done last visit. Continue to wear Right hinged knee brace Physical therapy ordered for lower extremity strengthening including gait training. Start PT. Continue Tylenol 500 mg daily Return to clinic in 3 months or sooner if needed (5) Primary osteoarthritis of both hands: Comment: Uncontrolled pain Code(s): M19.041 - Primary osteoarthritis, right hand; M19.042 - Primary osteoarthritis, left hand Category: Medical Plan: I am holding off on prescribing NSAID due to mild transaminitis OT prescribed Continue Tylenol 500 mg daily Return to clinic in 3 months (6) Transaminitis: Comment: Unclear etiology. Downtrending. Code(s): R74.01 - Elevation of levels of liver transaminase levels Category: Medical Plan: Repeating liver function tests today She will continue to take 1 tablet of Tylenol 500 mg daily Return to clinic in 3 months Orders: Orders Protein Creatinine Ratio, Ur 02/07/25 M32.9 - Systemic lupus erythematosus, unspecified Alanine Aminotransferase 02/07/25 M32.9 - Systemic lupus erythematosus, unspecified Complement C3 02/07/25 M32.9 - Systemic lupus erythematosus, unspecified DNA Double Stranded-Crithidia 02/07/25 M32.9 - Systemic lupus erythematosus, unspecified Aspartate Amino Transferase 1 Month Z79.899 - [facility] [place] [facility] drug therapy OT Evaluation and Treatment Today M19.049 - Primary osteoarthritis, unspecified hand Complete Blood Count Auto Diff 02/07/25 M32.9 - Systemic lupus erythematosus, unspecified Erythrocyte Sedimentation Rate 02/07/25 M32.9 - Systemic lupus erythematosus, unspecified Aspartate Amino Transferase 02/07/25 M32.9 - Systemic lupus erythematosus, unspecified Complement C4 02/07/25 M32.9 - Systemic lupus erythematosus, unspecified Creatinine 02/07/25 M32.9 - Systemic lupus erythematosus, unspecified Anti DNA DS Antibody 02/07/25 M32.9 - Systemic lupus erythematosus, unspecified UA ClnCatch+Micro w/rflx Cult 02/07/25 M32.9 - Systemic lupus erythematosus, unspecified C Reactive Protein 02/07/25 M32.9 - Systemic lupus erythematosus, unspecified Alanine Aminotransferase 1 Month Z79.899 - Other [place] [facility] (current) drug therapy Referrals Infusion Center Notification M32.19 - Other organ or system involvement in systemic lupus erythematosus Coding Level of Care Code Est Pt Level 4 (35899) Complex visit Add On G2211 Diagnoses Systemic lupus erythematosus with other organ involvement, unspecified SLE type M32.19 Systemic lupus erythematosus organ involvement: other Systemic lupus erythematosus type: unspecified Rash R21 Dysphagia R13.10 Primary osteoarthritis of right knee M17.11 Laterality: right Osteoarthritis type: primary Primary osteoarthritis of both hands M19.041; M19.042 Transaminitis R74.01
--- OUTSIDE RECORDS SUMMARY | 2025-02-07 16:31 | XMS_ITS | Encounter Summary ---
Author Organization [employer] [facility] Address [address] [place] [address] Care Team Providers Care Manager Van Name Role Phone Unavailable Primary Care Provider Unavailabl e Encounter Details Date Type Department Care Team (Latest Contact Info) Description 08/26/2020 Abstract [facility] CONVERSIONS Dental, Provider, DDS Social [...] Description 07/25/2025 10:15 AM EDT Office Visit [facility] [address] [place] [address] Cameron Salgado documented as of this encounter Visit Diagnoses Not on filedocumented in this encounter
--- OUTSIDE RECORDS SUMMARY | 2025-02-07 16:31 | XMS_ITS | Clinical Summary ---
Author Organization [facility] Address [address] [place], [place] [id number] Phone Care Team Providers Care Can Line Examiner Name Role Phone Osiris Soni MD Primary [...] ACO ACO ACO ACO ACO ACO [facility] ACO Care Teams Can Line Examiner Relationship Specialty Start Date End Date Osiris Soni MD [address] [place] [address] PCP - General Internal Medicine 06/03/17 Additional Source Comments The information contained in this document represents components of the legal health record. It is not the complete legal health record.[facility]
--- OUTSIDE RECORDS SUMMARY | 2025-02-07 16:31 | XMS_ITS | Data Portability ---
Author Organization [place] [facility], Allergy Address [address] [address] Care Team Providers Care Forensic Chemist Name Role Phone PENELOPE CORNELIUS Primary Care [...] benefit from immunotherapy if approved by her pipe organ tuner and repairer in [place]. All questions answered. [email or web address] Not available 04/26/2024 16:45:50 11/17/2024 11/17/2024 69-year-old female with allergic rhinitis and lupus presents with daughter for allergy test results. Skin allergy testing demonstrated moderate sensitivity to two molds and Gerardo grass. Examination today is unremarkable. We discussed observation versus [id number] medication versus allergy immunotherapy. Patient agrees to [...] 2024 025 [place] [facility], [address], [place], [place], [phone], 16:45:06 Patient TargetsNo targets recorded. Patient Instructions Encounter Date Encounter Id Patient Instructions Last Modified By Organization Details Last Modified Time 05/22/2024 [id number] Nursing Documentation for Allergy Testing: Ordering Provider [...] and peak flow, recommended pt to see piercing machine operator and talk to primary care doctor. Written by: Catherine Erwin [email or web address] Not available 05/22/2024 13:49:42 10/06/2024 [id number] Nursing Documentation for Allergy Testing (Split Test): [...] by: Catherine Erwin Requesting Provider Dr. Cifuentes [email or web address] Not available 10/06/2024 15:46:09 Reason for Referral [...] Address Organization Details Recorded Time Chronic rhinitis 74091402 Active 2013 Chronic pharyngit is and nasophary ngitis: Chronic rhinitis; CMS Risk: low risk [facility] Treatment : new problem (to examiner) : no additiona l workup planned N ote: Date Diagnosed : 12/19/2013 12:00 PM (472.0) Not Available [facility] 4 02:46:56 Allergic rhinitis 46342996 Active 2015 Other allergic rhinitis; Note: Changed from J30.9 to J30.89 ( 6 4:25 PM) , Date Diagnosed : 01/22/2016 3:54 PM (J30.9) Not Available [facility] 4 02:46:49 Pain of right temporoma ndibular joint 86148748576 045848 Active 2016 Arthralgi a of right temporoma ndibular joint; Note: Date Diagnosed : 04/22/2016 1:59 PM (M26.621) Not Available [facility] 4 02:46:53 Posterior rhinorrhe a 47758816 Active 2016 Postnasal drip; Note: Date Diagnosed : 04/22/2016 1:54 PM (R09.82) Not Available [facility] 4 02:46:55 Nasal congestio n 73323844 Active 2016 Nasal congestio n; Note: Date Diagnosed : 04/22/2016 1:54 PM (R09.81) Not Available [facility] 4 02:46:53 Follow-up visit Active 2016 Encounter for follow-up examinati on after completed treatment for condition s other than malignant neoplasm; Note: Date Diagnosed : 7 4:29 PM (Z09) Not Available [facility] 4 02:46:56 Migraine 23679974 Active 2017 Other migraine, not intractab le, without status migrainos us; Note: Date Diagnosed : 03/25/2017 12:19 PM (G43.809) Not Available [facility] 4 02:46:55 Dizziness and giddiness 829416650 Active 2017 Dizziness and giddiness ; Note: Date Diagnosed : 03/25/2017 11:43 AM (R42) Not Available [facility] 4 02:46:55 Tinnitus of left ear 31091610241 06 Active 2017 Tinnitus, left ear; Note: Date Diagnosed : 03/25/2017 11:55 AM (H93.12) Not Available [facility] 4 02:46:57 Gastroeso phageal reflux disease without esophagit is 736215454 Active 2017 Gastro-es ophageal reflux disease without esophagit is; Note: Date Diagnosed : 8 9:31 AM (K21.9) Not Available [facility] 4 02:46:51 Dysphasia 54620328 Active 2017 Dysphasia ; Note: Date Diagnosed : 8 9:31 AM (R47.02) Not Available [facility] 4 02:46:56 Headache 60363253 Active 2018 Headache, unspecifi ed; Note: Changed from R51 to R51.9 ( 1 3:43 PM) , Date Diagnosed : 04/08/2018 12:10 PM (R51) Not Available [facility] 4 02:46:52 Bilateral temporoma ndibular joint pain 15869038210 015104 Active 2018 Arthralgi a of bilateral temporoma ndibular joint; Note: Date Diagnosed : 07/27/2018 1:25 PM (M26.623) Not Available [facility] 4 02:46:53 Acute sinusitis 11168568 Active 2020 Other acute sinusitis ; Note: Date Diagnosed : 08/15/2020 1:41 PM (J01.80) Not Available [facility] 4 02:46:57 Sensorine ural hearing loss of bilateral ears 003162694 Active 2020 Sensorine ural hearing loss, bilateral ; Note: Date Diagnosed : 1 12:18 PM (H90.3) Not Available [facility] 4 02:46:50 Acute pharyngit is 564534507 Active 2022 Sore throat (acute) NOS; Note: Date Diagnosed : 3 12:47 PM (J02.9) Not Available [facility] 4 02:46:56 Nasal mucosa dry 41854781 Active 2023 Queta mitchell, [place] - [facility] 4 11:02:24 Anterior rhinorrhe a 313855781 Active 2024 NAGELIKA RODRÍGUEZ PA-C [address], [facility] [place], [address] , [facility] - [facility] 5 16:32:07 Atypical facial pain 43556904 Active 2024 ANGELIKA RODRÍGUEZ PA-C [address], [place], [address] , [facility] - [facility] [place] 5 16:43:52 Non-aller gic rhinitis 05286765354 1 Active 2024 ANGELIKA RODRÍGUEZ PA-C [address], [facility] [place], [address] , [facility] - [facility] [place] 5 16:44:24 Seasonal allergic rhinitis 086904009 Active 2024 ANGELIKA RODRÍGUEZ PA-C [address], [place], [address] , [facility] - [facility] [place] 5 16:44:24 Chronic obstructi ve pulmonary disease 08870156 Active 2024 CARLOS LOMELI MD [address], [place], [address] , [facility] - [facility] [place] 5 14:10:02 Perennial allergic rhinitis 645740387 Active 2024 ROSA GUZMÁN [address], [place], [address] , [facility] 5 14:51:10 Problem Notes None recorded. Procedures Surgical History Date Name Laterality Status Provider Name and Address Organization Details Recorded Time 5 Allergy Testing-Full completed ROSA GUZMÁN 100 [facility],[place] [address], [place], [address], [facility] 10/06/2024 15:45:24 5 Nasal Endoscopy completed ANGELIKA RODRÍGUEZ PA-C 100 [facility],[place] [address], [place], [address], [facility] 04/26/2024 16:39:27 screening colonoscopy completed Magy Hassan [facility] 11/17/2024 14:09:12 Imaging Results None recorded. Procedure Notes None recorded. Medical Equipment None Reported. Allergies Allergen ID Allergen Name Allergen Category Reaction Reaction Severity Criticality Documentation Date Start Date Code Code System Note Provider Name and Address Organization Details Recorded Time [id number] prednisol one medicatio n hallucina tions Not available Not available 05/22/2024 8638 RxNorm ROSA GUZMÁN 100 [facility] [address], [address], [facility] 5 13:01:00 Medications Name Sig Start Date Stop Date Status Note LastModified by Organization Details LastModified Time Prescript ion - Prior Authoriza tion Request active Script Copy/La or Auth^Scr ipt Copy/La or Auth_ [id number] Not Available Not Available Not Available melatonin [...] by mouth 08/15 completed Medicati on ID: [id number] D uration Value: 10 Prescri bed By [...] mg tablet 05/22 completed Medicati on ID: [id number] B rand Name: phenazop yridine Send Method: [...] mg tablet 12/30 completed Medicati on ID: [id number] D uration Value: 8 Brand Name: ondanset antony HCl Send Method: E-Prescr ibed Sub s Allowed: subs OK Medic ationGen ericName : ondanset antony HCl Not Available Not Available Not Available prednison e 20 mg tablet 2 tablet by mouth 07/06/ 2021 10/18 /2021 completed Medicati on ID: [id number] D uration Value: 5 Prescri bed By [...] mg tablet 12/30 completed Medicati on ID: [id number] D uration Value: 2 Brand Name: butalbit [...] mg tablet 12/30 completed Medicati on ID: [id number] D uration Value: 30 Brand Name: carbamaz [...] Available Not Available No t Available levofloxa migonn 500 mg tablet TAKE 1 TABLET BY [...] topical cream 12/30 completed Medicati on ID: [id number] D uration Value: 23 Brand Name: doxepin [...] mg tablet 03/23 completed Medicati on ID: [id number] D uration Value: 1 Brand Name: diazepam Send Method: E-Prescr ibed Sub s Allowed: subs OK Medic ationGen ericName : diazepam Not Available Not Available Not Available amoxicill in 875 mg-potass ium clavulana te 125 mg tablet TAKE 1 TABLET BY MOUTH TWICE A DAY FOR 7 DAYS active Not Available Not Available No t Available Denta 5000 Plus 1.1 % cream [place] teeth for 2 minutes, morning and night. [...] extended release 03/23 completed Medicati on ID: [id number] D uration Value: 30 Brand Name: bupropio n HCl Send Method: E-Prescr ibed Sub s Allowed: subs OK Speci al Instruct ion: TAKE 1 TABLET EVERY MORNING Medicati onGeneri cName: bupropio n HCl Not Available Not Available Not Available escitalop qasim 5 mg tablet 07/08 completed Medicati on ID: [id number] D uration Value: 30 Reason: () Brand [...] Details Last Updated DateTime 2024 157.48 cm 36670.93 g Lorenza Villarreal [place] [facility] 2024 10:20:24 Date Recorded Body height Body mass index (BMI) Body weight Provider Name and Address Organization Details Last Updated DateTime 04/26/2024 157.48 cm 25.6 kg/m2 31247.93 g Magy Hassan [place] [facility] 04/26/2024 16:06:43 Date Recorded Body height Oxygen saturation Body mass index (BMI) Body weight Heart rate Systolic And Diastolic Provider Name and Address Organization Details Last Updated DateTime 5 157.48 cm 98 % 25.6 kg/m2 69507.9 3 g 71 /min 122/65 mm[Hg] ROSA GUZMÁN [address], [address], [place] [facility] 13:45:21 Date Recorded Body height Oxygen saturation Heart rate Body mass index (BMI) Body weight Systolic And Diastolic Provider Name and Address Organization Details Last Updated DateTime 157.48 cm 98 % 77 /min 25.6 kg/m2 37559.9 3 g 159/71 mm[Hg] ROSA GUZMÁN [address], [address], [facility] 14:44:00 Date Recorded Body height Body mass index (BMI) Body weight Provider Name and Address Organization Details Last Updated DateTime 11/17/2024 157.48 cm 26.2 kg/m2 98043.71 g Magy Hassan [place] [facility] 11/17/2024 14:07:59 Social History None recorded. [...] Disorder N Anesthesia Complications N Heart Attack ([place]) Y Other Skin Condition Y Diabetes N [...] Note [id number] QUETA MATTHEWS PA-C [facility] [address] [address] 09/21/2023 10:18:14 09/21/2023 10:37:56 Vasomotor rhinitis 9330003 J30.0 Nasal mucosa dry 7771773 2 J34.89 [id number] QUETA MATTHEWS PA-C [facility] [address] [address] 2024 10:14:30 2024 10:41:37 Acute sinusitis 53651211 J01.90 Nasal congestion 7350969 0 R09.81 Nasal mucosa dry 5253739 2 J34.89 Vasomotor rhinitis 67376 03 J30.0 Posterior rhinorrhea 758 63942 R09.82 [id number] ANGELIKA RODRÍGUEZ PA-C [facility] [address] [address] 04/26/2024 16:01:00 04/26/2024 16:33:24 Posterior rhinorrhea 94425871 R09.82 Anterior rhinorrhea 2772 80621 J34.89 Allergic rhinitis 664884 04 J30.9 Headache 03531679 R51.9 [id number] CATHERINE ERWIN [facility] [address] [place] [address] 05/22/2024 12:32:38 05/22/2024 13:55:12 Allergic rhinitis 83174123 J30.9 [id number] CATHERINE ERWIN [facility] [address] [place] [address] 10/06/2024 14:26:22 10/06/2024 15:49:53 Perennial allergic rhinitis 250128610 J30.89 583743 [id number] ANGELIKA RODRÍGUEZ PA-C [facility] [address] [place] [address] 11/17/2024 13:50:54 11/17/2024 14:31:13 Allergic rhinitis 91518845 J30.9 Health Concerns Section Related Observation LastModified by Organization Detai ls LastModified Time None Recorded Concern Status LastModified by Organization Details LastModified Time None Recorded Advance Directives Directive None Recorded Payers Insurance Date Sequence Insurance Name Policy Number Policy Kuo Covered Member ID Kuo Member ID Guarantor Name 11/17/2024 2 [place] [facility] Jessa Minor [id number] Jessa Minor 11/17/2024 1 [facility] (MEDICARE REPLACEMENT/ ADVANTAGE - HMO) [facility] [place] Jessa Minor [id number] Jessa Minor 10/06/2024 2 [place] [facility] Jessa Minor [id number] Jessa Minor Notes Date Note Type Note [...] stopped her fluticasone. TY SMITH MD 100 [facility],[address], [address], [facility] - [facility] 2024 16:46:20 04/26/2024 text/html ROS as noted in the [facility] 69yo female with PND and gustatory [...] has lupus and is closely followed by [place] rheumatology. TY SMITH MD 100 [facility],[place] [address], [place], [address], [facility] 04/26/2024 17:40:05 11/17/2024 text/html ROS as noted in the [facility] 69-year-old female with posterior rhinorrhea presents for allergy test results. Skin allergy testing demonstrated moderate sensitivity to two molds and Gerardo grass. Patient reports the postnasal drip is intermittent, and denies all other allergy symptoms. Her migraines are well-controlled. She is closely followed by [place] rheumatology for lupus. TY SMITH MD 100 [facility] [address], [place], [address], [facility] 11/20/2024 07:50:03 OBGyn Episode No OBEpisode recorded.
--- OUTSIDE RECORDS SUMMARY | 2025-02-07 16:31 | XMS_ITS | Continuity of Care Document ---
Author Organization [facility] - [facility], [facility] Address [address] [place] [address] Care Team Providers Care Filer Metal Patterns Name Role Phone PENELOPE CORNELIUS Primary Care Provider Assessment Encounter Date Assessment Date Assessment LastModified by Organization Details LastModified Time 11/17/2024 11/17/2024 69-year-old female with allergic rhinitis and lupus presents with daughter for allergy test results. Skin allergy testing demonstrated moderate sensitivity to two molds and Gerardo grass. Examination today is unremarkable. We discussed observation versus [id number] r medication versus allergy immunotherapy. Patient agrees [...] Address Organization Details Recorded Time Chronic rhinitis 09756188 Active 2013 Chronic pharyngit is and nasophary ngitis: Chronic rhinitis; CMS Risk: low risk CMS Treatment : new problem (to examiner) : no additiona l workup planned N ote: Date Diagnosed : 12/19/2013 12:00 PM (472.0) Not Available [facility] 4 02:46:56 Allergic rhinitis 88270378 Active 2015 Other allergic rhinitis; Note: Changed from J30.9 to J30.89 ( 6 4:25 PM) , Date Diagnosed : 01/22/2016 3:54 PM (J30.9) Not Available [facility] 4 02:46:49 Pain of right temporoma ndibular joint [id number] 523809 Active 2016 Arthralgi a of right temporoma ndibular joint; Note: Date Diagnosed : 04/22/2016 1:59 PM (M26.621) Not Available [facility] 4 02:46:53 Posterior rhinorrhe a 09830974 Active 2016 Postnasal drip; Note: Date Diagnosed : 04/22/2016 1:54 PM (R09.82) Not Available [facility] 4 02:46:55 Nasal congestio n 34038823 Active 2016 Nasal congestio n; Note: Date Diagnosed : 04/22/2016 1:54 PM (R09.81) Not Available [facility] 4 02:46:53 Follow-up visit Active 2016 Encounter for follow-up examinati on after completed treatment for condition s other than malignant neoplasm; Note: Date Diagnosed : 7 4:29 PM (Z09) Not Available [facility] 4 02:46:56 Migraine 82238722 Active 2017 Other migraine, not intractab le, without status migrainos us; Note: Date Diagnosed : 03/25/2017 12:19 PM (G43.809) Not Available [facility] 4 02:46:55 Dizziness and giddiness 172263150 Active 2017 Dizziness and giddiness ; Note: Date Diagnosed : 03/25/2017 11:43 AM (R42) Not Available [facility] 4 02:46:55 Tinnitus of left ear 63320696836 06 Active 2017 Tinnitus, left ear; Note: Date Diagnosed : 03/25/2017 11:55 AM (H93.12) Not Available [facility] 4 02:46:57 Gastroeso phageal reflux disease without esophagit is 739556735 Active 2017 Gastro-es ophageal reflux disease without esophagit is; Note: Date Diagnosed : 8 9:31 AM (K21.9) Not Available [facility] 4 02:46:51 Dysphasia 43478400 Active 2017 Dysphasia ; Note: Date Diagnosed : 8 9:31 AM (R47.02) Not Available [facility] 4 02:46:56 Headache 05317029 Active 2018 Headache, unspecifi ed; Note: Changed from R51 to R51.9 ( 1 3:43 PM) , Date Diagnosed : 04/08/2018 12:10 PM (R51) Not Available [facility] 4 02:46:52 Bilateral temporoma ndibular joint pain 14496115410 939973 Active 2018 Arthralgi a of bilateral temporoma ndibular joint; Note: Date Diagnosed : 07/27/2018 1:25 PM (M26.623) Not Available [facility] 4 02:46:53 Acute sinusitis 15014026 Active 2020 Other acute sinusitis ; Note: Date Diagnosed : 08/15/2020 1:41 PM (J01.80) Not Available [facility] 4 02:46:57 Sensorine ural hearing loss of bilateral ears 088389662 Active 2020 Sensorine ural hearing loss, bilateral ; Note: Date Diagnosed : 1 12:18 PM (H90.3) Not Available [facility] 4 02:46:50 Acute pharyngit is 738442295 Active 2022 Sore throat (acute) NOS; Note: Date Diagnosed : 3 12:47 PM (J02.9) Not Available [facility] 4 02:46:56 Nasal mucosa dry 50827210 Active 2023 Jyoti mitchell [place] - [facility] 4 11:02:24 Anterior rhinorrhe a 199588403 Active 2024 ANGELIKA RODRÍGUEZ PA-C [address], [place], [address] , [place] - [facility] 5 16:32:07 Atypical facial pain 52328469 Active 2024 ANGELIKA RODRÍGUEZ PA-C [address], [place], [address] , [place] - [facility] 5 16:43:52 Non-aller gic rhinitis 32729473373 1 Active 2024 ANGELIKA RODRÍGUEZ PA-C [address], [place], [address] , [place] - [facility] 5 16:44:24 Seasonal allergic rhinitis 907745511 Active 2024 ANGELIKA RODRÍGUEZ PA-C [address], [facility] [place], [address] , [place] - [facility] 5 16:44:24 Chronic obstructi ve pulmonary disease 16396425 Active 2024 CARLOS LOMELI MD [address] [facility], [facility] [place], [address] , [place] - [facility] 5 14:10:02 Perennial allergic rhinitis 648631713 Active 2024 ROSA GUZMÁN [address], [facility] [place], [address] , [place] - [facility] 5 14:51:10 Problem Notes None recorded. Procedures Surgical History Date Name Laterality Status Provider Name and Address Organization Details Recorded Time 5 Allergy Testing-Full completed ROSA GUZMÁN [address] [facility], [place], [address], [place] - [facility] 10/06/2024 15:45:24 5 Nasal Endoscopy completed ANGELIKA RODRÍGUEZ PA-C [address], [place], [address], [place] - [facility] 04/26/2024 16:39:27 screening colonoscopy completed Magy Hassan [facility] 11/17/2024 14:09:12 Imaging Results None recorded. Procedure Notes None recorded. Medical Equipment None Reported. Allergies Allergen ID Allergen Name Allergen Category Reaction Reaction Severity Criticality Documentation Date Start Date Code Code System Note Provider Name and Address Organization Details Recorded Time [id number] prednisol one medicatio n hallucina tions Not available Not available 05/22/2024 8638 RxNorm BRYAN ERWIN, [address], [address] - [facility] 13:01:00 Medications Name Sig Start Date Stop Date Status Note LastModified by Organization Details LastModified Time melatonin tr 10 mg tbcr active Not Available Not Available Not Available melatonin prolonged release 10 mg tbcr active Not Available Not Available Not Available Prescript ion - Prior Authoriza tion Request active Script Copy/La or Auth^Scr ipt Copy/La or Auth_ Not Available Not Available Not Available amoxicill [...] by mouth 08/15 completed Medicati on ID: [id number] D uration Value: 10 Prescri bed By [...] mg tablet 05/22 completed Medicati on ID: [id number] B rand Name: phenazop yridine Send Method: [...] mg tablet 12/30 completed Medicati on ID: [id number] D uration Value: 8 Brand Name: ondanset antony HCl Send Method: E-Prescr ibed Sub s Allowed: subs OK Medic ationGen ericName : ondanset antony HCl Not Available Not Available Not Available prednison e 20 mg tablet 2 tablet by mouth 12/30 completed Medicati on ID: [id number] D uration Value: 5 Prescri bed By [...] mg tablet 12/30 completed Medicati on ID: [id number] D uration Value: 2 Brand Name: butalbit [...] mg tablet 12/30 completed Medicati on ID: [id number] D uration Value: 30 Brand Name: carbamaz [...] capsule 01/05 completed Medicati on ID: [id number] [place]: () Brand Name: gabapent in Send Method: E-Prescr ibed Sub s Allowed: subs OK Medic ationGen ericName : gabapent in Not Available Not Available Not Available omeprazol e 20 mg capsule,d elayed release TAKE 1 CAPSULE BY MOUTH EVERY DAY NEEDED ACID REFLUX active Not Available Not Available No t Available lisinopri l 5 mg tablet 07/08 completed Medicati on ID: [id number] [place]: () Brand Name: lisinopr il Send [...] topical cream 12/30 completed Medicati on ID: [id number] D uration Value: 23 Brand Name: doxepin [...] mg tablet 03/23 completed Medicati on ID: [id number] D uration Value: 1 Brand Name: diazepam Send Method: E-Prescr ibed Sub s Allowed: subs OK Medic ationGen ericName : diazepam Not Available Not Available Not Available amoxicill in 875 mg-potass ium clavulana te 125 mg tablet TAKE 1 TABLET BY MOUTH TWICE A DAY FOR 7 DAYS active Not Available Not Available No t Available Denta 5000 Plus 1.1 % cream [place] teeth for 2 minutes, morning and night. [...] extended release 03/23 completed Medicati on ID: [id number] D uration Value: 30 Brand Name: bupropio n HCl Send Method: E-Prescr ibed Sub s Allowed: subs OK Speci al Instruct ion: TAKE 1 TABLET EVERY MORNING Medicati onGeneri cName: bupropio n HCl Not Available Not Available Not Available escitalop qasim 5 mg tablet 07/08 completed Medicati on ID: [id number] D uration Value: 30 Reason: () Brand [...] Updated DateTime 11/17/2024 157.48 cm 26.2 kg/m2 55997.71 g Magy Hassan [place] - [facility] 11/17/2024 14:07:59 Social History None recorded. Functional [...] Disorder N Anesthesia Complications N Heart Attack (MT) Y Other Skin Condition Y Diabetes N [...] ICD10 Code Diagnosis IMO Codes Diagnosis Note [id number] ANGELIKA RODRÍGUEZ PA-C [facility] [address] [address] 11/17/2024 13:50:54 11/17/2024 14:31:13 Allergic rhinitis 30738912 J30.9 Health Concerns Section Related Observation LastModified by Organization Detai ls LastModified Time None Recorded Concern Status LastModified by Organization Details LastModified Time None Recorded Payers Encounter Date Sequence Insurance Name Policy Number Policy Kuo Covered Member ID Kuo Member ID Guarantor Name 11/17/2024 2 [place] [facility] Jessa Minor [id number] Jessa Minor 11/17/2024 1 [facility] (MEDICARE REPLACEMENT/ ADVANTAGE - HMO) [facility] Jessa Minor [id number] Jessa Minor Notes Date Note Type Note [...] are well-controlled. She is closely followed by [place] [facility] for lupus. TY SMITH MD [address] [place] [address], [place], [address], [facility] - [facility] 11/20/2024 07:50:03 OBGyn Episode No OBEpisode recorded.
--- OUTSIDE RECORDS SUMMARY | 2025-02-07 16:31 | XMS_ITS | Clinical Summary ---
Author Organization [employer] Address [address] [facility] [address] [place] [address] Care Team Providers Care Refrigeration Plant Operator Name Role Phone Unavailable Primary Care [...] 4 Active Sodium Fluoride 1.1 % cream [place] teeth for 2 minutes, morning and night. [...] Description 01/29/2025 10:30 AM EST Office Visit [facility] [address] [place] [address] Pancho Butcher DDS 01/29/2025 Telephone [facility] [address] [place] [address] Pancho Butcher DDS 01/28/2025 Travel 01/22/2025 10:15 AM EST Office Visit [facility] [address] [place] [address] Cameron Salgado Dental calculus (Primary Dx) 01/21/2025 Travel 01/16/2025 9:30 AM EST Office Visit [facility] [address] [place] [address] Pancho Butcher DDS 01/09/2025 8:00 AM EDT Office Visit [facility] [address] [place] [address] Pancho Butcher DDS 01/01/2025 8:00 AM EDT Office Visit [facility] [address] [place] [address] Pancho Butcher DDS 12/31/2024 Travel 12/18/2024 10:00 AM EDT Office Visit [facility] [address] [place] [address] Pancho Butcher DDS 12/04/2024 1:00 PM EDT Office Visit [facility] [address] [place] [address] Temo Castle DDS Dental caries (Primary Dx) [...] Description 07/25/2025 10:15 AM EDT Office Visit [facility] [address] [place] [address] Cameron Salgado Health Maintenance Due Date Last [...] from Last 3 Months Insurance DENTAL - [facility]
--- OUTSIDE RECORDS SUMMARY | 2025-02-07 16:31 | XMS_ITS | Encounter Summary ---
Author Organization [employer] Address [address] [facility] [address] [place] [address] Care Team Providers Care Vice President Business & Corporate Development Name Role Phone Unavailable Primary Care Provider Unavailabl e Encounter Details Date Type Department Care Team (Latest Contact Info) Description 03/30/2019 Abstract [facility] CONVERSIONS Dental, Provider, DDS Social History [...] Description 07/25/2025 10:15 AM EDT Office Visit [facility] [address] [place] [address] Cameron Salgado documented as of this encounter Visit Diagnoses Not on filedocumented in this encounter
--- OUTSIDE RECORDS SUMMARY | 2025-02-07 16:31 | XMS_ITS | Encounter Summary ---
Author Organization [facility] Address [address] [place] [address] Phone Care Team Providers Care Mixed Animal Veterinarian Name Role Phone Osiris Soni MD Primary Care Provider Encounter Details Date Type Department Care Team (Late st Contact Info) Description 06/03/2017 Ancillary [facility] [address] [place] [address] Donte Chris DO [address] [place] [address] Palpitations Social History Tobacco Use Types Packs/Day [...] Palpitations documented in this encounter Care Teams Mixed Animal Veterinarian Relationship Specialty Start Date End Date Osiris Soni MD [facility] [place] [address] PCP - General Internal Medicine 06/03/17 documented as of this encounter Additional Source Comments The information contained in this document represents components of the legal health record. It is not the complete legal health record.[facility]
== END 2025-02-07 14:45 | disposition home or self-care (01) ==
LOC: HO.RHES 13:23
PROVIDERS: PCP Internal Medicine; Visit Provider Internal Medicine Rheumatology
DX: M32.19 Other organ or system involvement in systemic lupus erythematosus (principal); R21 Rash and other nonspecific skin eruption; R13.10 Dysphagia, unspecified; M17.11 Unilateral primary osteoarthritis, right knee; M19.041 Primary osteoarthritis, right hand; M19.042 Primary osteoarthritis, left hand; R74.01 Elevation of levels of liver transaminase levels
CPT/HCPCS: 99214; G2211